=== PATIENT | male | born 1980 | race Caucasian/White ===

== ENCOUNTER 2016-06-25 22:09 | Inpatient (IN) | payer BC ==
[~2016-06-25] VITALS: Ht 177.8 cm; Wt 88.3 kg
[~2016-06-25 22:09] MED LIST: ALBU2.5V9 NEB; CEFE2FRO IV; Furosemide IV; LACTINEX PO; LORA-444 PO; MOR2I IV; ONDA4VIA2 IV; PANTOPRAZOLE; SPIR25TA76 PO; TYL650R PR; VANC750F2 IV; Vancomycin Iv Per Pharmacy XX
[2016-06-25] MEDS ORDERED: FUROSEMIDE 20 MG INJ IV STA (23:46)
--- NOTE | 2016-06-26 00:14 | RADRPT ---
PROCEDURE: CHEST - 1 VIEW CLINICAL INDICATION: 36-year-old male with chest pain. TECHNIQUE: A single frontal AP view of the chest was performed portably. The images were reviewed on a PACS workstation. COMPARISON: Chest x-ray June 15, 2016; CTA chest/abdomen with runoff April 26, 2016. FINDINGS: There has been interval removal of the left-sided PICC line. The cardiomediastinal silhouette is en larged but without significant interval change. There is mild pulmonary vascular congestion. There is elevation right hemidiaphragm. There is a shallow inspiration. There is mild bibasilar subsegm ental atelectasis. There is no evidence for an infiltrate. There is no evidence for pneumothorax. The osseous structures are intact. IMPRESSION: 1. Cardiomegaly. 2. Pulmonary vascular congestion. 3. Shallow inspiration. 4. Mild bibasilar subsegmental atelectasis. .Bora Connors MD, MD Date Time Electronically viewed and signed by .Bora Connors MD, on 06/26/2016 00:14 .M/
[2016-06-26] MEDS ORDERED: LORAZEPAM 2 MG INJ IV ONE (00:30)
[2016-06-26 00:37] LABS: INR 1.61; PROTIME 19.3 Sec (12.2-14.2); PT RATIO 1.5
[2016-06-26 00:38] LABS: PARTIAL THROMBOPLASTIN TIME 32.3 Sec (25.0-35.0)
[2016-06-26 00:40] LABS: BASOPHIL # 0.1 10^3/ul (0.0-0.1); BASOPHILS % 0.8 % (0.0-2.0); EOSINOPHILS % 0.3 % (0.0-7.0); HEMATOCRIT 43.8 % (42.0-52.0); LYMPHOCYTES # 2.9 10^3/ul (0.8-2.9); MEAN CORPUSCULAR HEMOGLOBIN 23.6 pg (29.0-33.0); MEAN CORPUSCULAR HGB CONC 30.9 g/dl (32.0-37.0); MEAN CORPUSCULAR VOLUME 76.5 fl (82.0-101.0); MEAN PLATELET VOLUME 9.5 fl (7.4-10.4); MONOCYTE # 1.4 10^3/ul (0.3-0.9); MONOCYTES % 8.6 % (0.0-11.0); NEUTROPHIL # 11.5 10^3/ul (1.6-7.5); NEUTROPHILS % 72.3 % (39.0-77.0); PLATELET COUNT 255 10^3/UL (140-440); RED BLOOD COUNT 5.73 10^6/ul (4.70-6.10); RED CELL DISTRIBUTION WIDTH 18.4 % (11.5-14.5); UNCORRECTED WBC 15.9 10^3/ul (4.8-10.8); WHITE BLOOD COUNT 15.9 10^3/ul (4.8-10.8)
[2016-06-26 00:42] LABS: CONDITION 1; HEMOGLOBIN 13.6 g/dl (14.0-18.0); LH ANALYZER COMMENTS 1
[2016-06-26 02:07] LABS: POTASSIUM 5.6 mmol/L (3.5-5.1)
[2016-06-26 02:09] LABS: BILIRUBIN,INDIRECT 0.5 mg/dl (0-1.1); BILIRUBIN,TOTAL 0.5 mg/dl (0.2-1.3); CREATININE 1.42 mg/dl (0.61-1.24)
[2016-06-26 02:10] LABS: CALCIUM 8.6 mg/dl (8.4-10.2)
[2016-06-26 02:20] LABS: TROPONIN-I 0.078 ng/ml (0.00-0.12)
--- NOTE | 2016-06-26 04:51 | ERA ---
ER Documentation Chief Complaint Date/Time DATE: 06/26/16 TIME: 04:49 Chief Complaint shortness of breath x 2 months. worse today. also c/o amparo leg swelling HPI This is a 36-year-old male with shortness of breath for 2 months has been progressively worse today. He was diagnosed with aortic valve dysfunction along with mitral valve leaflet rupture. Patient has a history of IV drug use with bacterial endocarditis. Patient had was at [facility] and was told he needs a valve replacement. He comes in for 2 days of worsening shortness of breath. No other current issues. ROS All systems reviewed and are negative except as per history of present illness. Medications Home Meds Active Scripts Lactobacillus Acidophilus* (Lactinex*) 1 Tab Chew, 1 TAB PO BID for 1 Day, TAB Prov:AIYANA GIANG. 06/17/16 Spironolactone* (Aldactone*) 25 Mg Tablet, 25 MG PO DAILY for 1 Day, TAB Prov:AIYANA GIANG. 06/17/16 Cefepime Hcl/Dextrose, Iso-Osm (Cefepime 2 Gm Injection) 2 Gm/100 Ml Froz.piggy , 2 GM IV Q8H for 1 Day Prov:AIYANA GIANGGrabiel 06/17/16 Vancomycin/0.9 % Sod Chloride (Vanco 750 mg/150 ml-0.9% NaCl) 750 Mg/150 Ml Froz.piggy, 750 MG IV Q12 for 1 Day Prov:AIYANA GIANGGrabiel 06/17/16 [Vancomycin Iv Per Pharmacy] 1 EA EACH No Conflict Check, 1 EA XX .Per Rx Protocol for 1 Day Prov:AIYANA GIANGGrabiel 06/17/16 [Pantoprazole Iv] 40 MG SOLN No Conflict Check, 40 MG IV DAILY@06 for 1 Day Prov:LU GIANGMaria Antonia Grabiel 06/17/16 Ondansetron Hcl* (Ondansetron Hcl* Inj) 4 Mg/2 Ml Vial, 4 MG IV Q6H Y for NAUSEA AND/OR VOMITING for 1 Day, VIAL Prov:AIYANA GIANGGrabiel 06/17/16 Morphine Sulfate (Morphine Sulfate) 2 Mg/Ml Soln, 2 MG IV Q4H Y for PAIN LEVEL 7 -10 for 1 Day Prov:LU GIANGMaria Antonia JerrellGrabiel 06/17/16 [Furosemide] 10 MG/ML SOLN No Conflict Check, 40 MG IV BID DIURETICS for 1 Day Prov:AIYANA GIANG. 06/17/16 Albuterol Sulfate (Albuterol Sulfate) 2.5 Mg/0.5 Ml Vial.neb, 2.5 MG NEB Q4H RESP THERAPY for 1 Day Prov:AIYANA GIANG. 06/17/16 Albuterol Sulfate (Albuterol Sulfate) 2.5 Mg/0.5 Ml Vial.neb, 2.5 MG NEB Q2H RESP THERAPY Y for SHORTNESS OF BREATH for 1 Day Prov:AIYANA IGANG. 06/17/16 Acetaminophen* (Acephen*) 650 Mg Supp, 650 MG HI Q4H Y for PAIN LEVEL 1-3 OR FEVER for 1 Day, SUPP Prov:AIYANA GIANG. 06/17/16 Reported Medications Lorazepam* (Ativan*) 2 Mg Tablet, 2 MG PO HS Y for ANXIETY, #30 TAB 06/14/16 Allergies Allergies: Coded Allergies: No Known Allergies (Verified Allergy, Unknown, 06/25/16) PMhx/Soc History of Surgery: No Anesthesia Reaction: No Hx Neurological Disorder: No Hx Respiratory Disorders: No Hx Cardiac Disorders: Yes (ENDOCARDITIS) Hx Psychiatric Problems: No Hx Miscellaneous Medical Probl: Yes (hepatitis c, swelling of abdomen and lower extremities) Hx Alcohol Use: No Hx Substance Use: Yes (heroin 4 days ago) Hx Tobacco Use: Yes (1-2 cigarettes/ day) Smoking Status: Current every day smoker Physical Exam Vitals Vital Signs Date Time Temp Pulse Resp B/P Pulse Ox O2 Delivery O2 Flow Rate FiO2 06/26/16 03:05 102 17 112/59 100 Nasal Cannula 2.0 06/26/16 01:46 103 21 137/61 100 Nasal Cannula 2.0 06/26/16 00:00 Nasal Cannula 2 06/26/16 00:00 Nasal Cannula 2.0 06/25/16 22:24 95.2 105 22 127/62 100 Physical Exam Const: [] Head: Atraumatic Eyes: Normal Conjunctiva ENT: Normal External Ears, Nose and Mouth. Neck: Full range of motion..~ No meningismus. Resp: Clear to auscultation bilaterally Cardio: Regular rate and rhythm, no murmurs Abd: Soft, non tender, non distended. Normal bowel sounds Skin: No petechiae or rashes Back: No midline or flank tenderness Ext: No cyanosis, or edema Neur: Awake and alert Psych: Normal Mood and Affect Result Diagram: 06/25/169 06/25/169 Results 24 hrs Laboratory Tests Test 06/25/16 23:59 Activated Partial Thromboplast Time 32.3Sec Alanine Aminotransferase (ALT/SGPT) 333IU/L Albumin 3.0g/dl Albumin/Globulin Ratio 1.00 Alkaline Phosphatase 92IU/L Anion Gap 20 Aspartate Amino Transf (AST/SGOT) 169IU/L B-Type Natriuretic Peptide 43165UA/ML Basophils # 0.110^3/ul Basophils % 0.8% Blood Morphology Comment Blood Urea Nitrogen 66mg/dl Calcium Level 8.6mg/dl Carbon Dioxide Level 25mmol/L Chloride Level 96mmol/L Creatinine 1.42mg/dl Direct Bilirubin 0.00mg/dl Eosinophils # 0.010^3/ul Eosinophils % 0.3% Globulin 3.00g/dl Glucose Level 116mg/dl Hematocrit 43.8% Hemoglobin 13.6g/dl INR International Normalized Ratio 1.61 Indirect Bilirubin 0.5mg/dl Lipase 28U/L Lymphocytes # 2.910^3/ul Lymphocytes % 18.0% Mean Corpuscular Hemoglobin 23.6pg Mean Corpuscular Hemoglobin Concent 30.9g/dl Mean Corpuscular Volume 76.5fl Mean Platelet Volume 9.5fl Monocytes # 1.410^3/ul Monocytes % 8.6% Neutrophils # 11.510^3/ul Neutrophils % 72.3% Nucleated Red Blood Cells # 0.010^3/ul Nucleated Red Blood Cells % 0.0/100WBC Platelet Count 21183^3/UL Potassium Level 5.6mmol/L Prothrombin Time 19.3Sec Prothrombin Time Ratio 1.5 Red Blood Count 5.7310^6/ul Red Cell Distribution Width 18.4% Sodium Level 135mmol/L Total Bilirubin 0.5mg/dl Total Protein 6.0g/dl Troponin I 0.078ng/ml White Blood Count 15.910^3/ul Current Medications Medications (Trade) Dose Ordered Sig/Bon Route PRN Reason Start Time Stop Time Status Last Admin Dose Admin Furosemide (Lasix) 60 mg ONCE STAT IV 06/25/16 23:46 06/25/16 23:48 DC 06/26/16 00:13 Lorazepam (Ativan) 1 mg ONCE ONCE IV 06/26/16 00:30 06/26/16 00:31 DC 06/26/16 00:28 Procedures/MDM EKG: Rate/Rhythm: Normal Sinus Rhythm QRS, ST, T-waves: No changes consistent w/ acute ischemia Impression: No evidence of ischemia or arrhythmia Chest X-ray 1V Interpreted by me: Soft Tissue: No acute abnormalities Bones: No acute abnormalities Mediastinum/Cardiac Silhouette/Lungs: Pulmonary edema. Increased interstitial fluid markings Patient's heart failure symptoms is concerning for acute decompensation and will require inpatient workup and monitoring. Further w/u for ischemia, arrhythmia, PE or dissection will be deferred to the inpatient team. I did speak with Dr. Camara, we come to the understanding the patient will likely benefit from referral and transfer to a tertiary care center. At this time we are trying to place the patient in either [facility] where he was before, [facility] or [facility]. Critical Care: Time: 45 minutes Treatments/Evaluations: Close monitoring and treatment of unstable vital signs, cardiorespiratory, and neurologic status, while maintaining tight balance of fluid, respiratory, and cardiac interventions. Departure Diagnosis: Primary Impression: Aortic regurgitation Qualified Code: I35.1 - Nonrheumatic aortic valve insufficiency Additional Impressions: Mitral valve regurgitation, infectious Congestive heart failure Qualified Code: I50.9 - Congestive heart failure, unspecified congestive heart failure chronicity, unspecified congestive heart failure type Condition: Critical BRADLEY FONTAINE Jun 26, 2016 04:51
[2016-06-26] MEDS ORDERED: ACETAMINOPHEN 325 MG TAB PO ONE ×2 (06:30)
[2016-06-26] MEDS ORDERED: EPINEPHrine 0.1 MG/ML SYG ONE (07:00)
[2016-06-26] MEDS ORDERED: NA BICARBONATE 8.4% 50 ML SYG ONE (07:00)
[2016-06-26] MEDS ORDERED: APIX5TAB PO (09:58)
[2016-06-26] MEDS ORDERED: NA POLYST SULFON 15 GM/60 ML BTL PO ONE (11:30)
[2016-06-26] MEDS ORDERED: ACETAMINOPHEN 325 MG TAB PO PRN (12:00)
[2016-06-26] MEDS ORDERED: ONDANSETRON 4 MG INJ IV PRN ×2 (12:00)
[2016-06-26] MEDS ORDERED: NITROGLYCERIN (SL) 0.4 MG TAB SL PRN (12:00)
--- NOTE | 2016-06-26 14:54 | HP ---
Date/Time of Note Date/Time of Note DATE: 06/26/16 TIME: 14:39 Assessment/Plan VTE Prophylaxis VTE Prophylaxis Intervention: other (eliquis) Lines/Catheters IV Catheter Type (from [facility]): Peripheral IV Assessment/Plan Assessment/Plan 36 yo unfortunate male with a past medical history of Bacterial Endocarditis finished 6 week course of IV antibiotics, Drug abuse, Nicotine abuse, Right popliteal thrombosis, PE on Eliquis, Microcytic anemia, CHF - diastolic, who came for worsening shortness of breath. 1. Shortness of breath - hypoxemic respiratory failure - multifactorial - heart failure acute on chronic - admit the patient to ICU, consult pulm, CT surgery, cardiology 2. Sepsis severe 2/2 to pneumonia - tachycardia/leukocytosis - HCAP - IV cefepime, levaquin, vanc - respiratory cultures, monitor trend 3. CHF - diastolic dysfunction - EF recent shows 40%, D shaped left ventricle, consult cardiology, gentle diuresis 4. Hyponatremia - 2/2 fluid overload - consult nephrology 5. BESSIE - acute on chronic - 2/2 #2 6. Transaminitis - 2/2 to sepsis, or possible atypical pneumonia, monitor trend - 7. PE on eliquis - continue 8. Right popliteal thrombus - continue with eliquis 9. Microcytic anemia - monitor H/H, transfuse if hgb < 8 g/dL 10. GI ppx - protonix 11. DVT ppx - eliquis answered all of the questions. as per clinical course. this critical care note took greater than 1 hour to complete HPI/ROS Admit Date/Time Admit Date/Time 06/26/2016, 2:40 pm Hx of Present Illness 36 yo unfortunate male with a past medical history of Bacterial Endocarditis finished 6 week course of IV antibiotics, Drug abuse, Nicotine abuse, Right popliteal thrombosis, PE on Eliquis, Microcytic anemia, CHF - diastolic, who came for worsening shortness of breath. Patient was recently admitted on 2015 for similar presentation. Since that time, the patient went to the tertiary care center for further evaluation and treatment, and was told that he has an inoperable valve. Secondary to that, he left and went home. He has been having worsening shortness of breath, unable to speak in full sentences, walks about 1-2 feet, increasing lower extremity edema with scrotal edema as well. He denies any chest pain, loss of consciousness, headaches, urinary/bowel irregularities. No other constitutional symptoms. ED course: lasix, ativan and acetaminophen all given ROS 14 point review of systems completed, please refer to HPI for any positive findings PMH/Family/Social Past Medical History Endocarditis - bacterial, Pulmonary Embolism, Right popliteal artery thrombus, microcytic anemia Medical History: congestive heart failure Past Surgical History Past Surgical Hx: no surgical history Family History Significant Family History: no pertinent family hx Social History Alcohol Use: none Smoking Status: Current every day smoker Drug Use: heroin Exam/Review of Systems Vital Signs Vitals Vital Signs Date Time Temp Pulse Resp B/P Pulse Ox O2 Delivery O2 Flow Rate FiO2 06/26/16 13:30 84 19 132/77 100 Nasal Cannula 2.0 06/26/16 11:30 97.4 Exam Exam Gen Evelyn: moderate respiratory distress, AAOx4 HEENT: NC/AT, PERRLA, EOMI, no pharyngeal erythema, no tonsillar exudates, no lymphadenopathy, no JVD, no carotid bruits NECK: supple, no thyromegaly THORAX: symmetrical, no obvious deformities CV: S1S2, RRR, III/ systolic murmur best heard over mitral area Lungs: Coarse breath sounds, scattered wheezing, bibasilar crackles Abd: soft, NT/ND, +BS, no rebound, no guarding, neg HSM : scrotal edema EXT: 2+ bilateral lower extremities edema, no ecchymosis, no clubbing, FROM, mild cyanosis noted at phalanges bilaterally lower extremities Neuro: CN II-XII grossly intact, no focal deficits Psych: fair mood and affect Skin: see ext Labs Result Diagram: 06/25/16 23506/25/162358 Medications Medications Current Medications Sodium Chloride (NS) 1,000 ml @ 40 mls/hr Q24H IV ; Start 06/26/16 at 16:00 Ondansetron HCl (Zofran Inj) 4 mg Q6H PRN IV NAUSEA AND/OR VOMITING; Start at 12:00 Nitroglycerin (Nitroglycerin (Sl Tab) 0.4 Mg) 1 tab Q5M PRN SL CHEST PAIN; Start 06/26/16 at 12:00 Acetaminophen (Tylenol Supp) 650 mg Q4H PRN TX PAIN LEVEL 1-3 OR FEVER; Start 06/26/16 at 12:00 Morphine Sulfate (morphine) 2 mg Q4H PRN IV PAIN LEVEL 7-10; Start 06/26/16 at 12:00 Lorazepam (Ativan) 1 mg Q2H PRN IV ANXIETY; Start 06/26/16 at 12:00 Pantoprazole (Protonix Iv) 40 mg DAILY@06 IV ; Start 06/27/16 at 06:00 Enoxaparin Sodium (Lovenox) 40 mg DAILY SC ; Start 06/27/16 at 09:00 Procedures Procedures CXR IMPRESSION: 1. Cardiomegaly. 2. Pulmonary vascular congestion. 3. Shallow inspiration. 4. Mild bibasilar subsegmental atelectasis. JC BROUSSARD MD Jun 26, 2016 14:49
[2016-06-26] MEDS ORDERED: VANCOMYCIN IV PER PHARMACY XX SCH (15:00)
[2016-06-26] MEDS: LEVOFLOXACIN 500MG/D5W (PMX) 100 ML IVPB SCH (15:16)
[2016-06-26] MEDS ORDERED: VANCOMYCIN 2 GM in SOD CHLORIDE 0.9% 500 ML IVPB SCH (16:15)
[2016-06-26] MEDS ORDERED: VANCOMYCIN 1.75 GM in SOD CHLORIDE 0.9% 500 ML IVPB SCH (16:15)
[2016-06-26] MEDS: CEFEPIME 1GM/50 ML (PMX) 50 ML IVPB SCH ×2 (16:26→21:00)
[2016-06-26] MEDS: LORAZEPAM 2 MG INJ IV PRN ×2 (16:36→22:09)
[2016-06-26 17:00] VITALS: TEMP 97.8
--- NOTE | 2016-06-26 17:01 | CONS ---
DATE OF ADMISSION: 06/25/2016 DATE OF CONSULTATION: 06/26/2016 REASON FOR CONSULTATION: Congestive heart failure exacerbation as well as mitral regurgitation and aortic regurgitation. REQUESTING PHYSICIAN: Dr. Broussard from the hospitalist service. HISTORY OF PRESENT ILLNESS: Mr. Ferrell is a 36-year-old male with a history of bacterial endocardit is status post a 6-week course with vegetation affecting both aortic and mitral valves with the douglas sesophageal echo 04/15/2016 revealing perforation of mitral valve leaflets. At that time, and assoc iated mild to moderate mitral regurgitation and moderate aortic regurgitation with preserved left ve ntricular ejection fraction. Additionally, at that time, the patient had a pulmonary embolism, was placed on Eliquis. The patient had re-presented 06/14/2016 with recurrent shortness of breath and c ongestive heart failure, lower extremity edema. At that time, the patient underwent a repeat 2D ech o now revealing a mildly depressed EF of 40% with moderate to severe aortic regurgitation, and moder ate to severe mitral regurgitation. Patient was transferred to [facility] for higher level of care and pe r family, he did present there, was told that he would have to undergo rehab prior to having any po ssible surgery done and was also told surgery could be done at [facility] and ther ulyssesfter the patient sounds like he may have left against medical advice. The patient now re-present s with recurrent shortness of breath, lower extremity edema, orthopnea. Upon arrival, temperature o f 95.2, blood pressure 127/62, pulse 105, respiratory rate 22, satting 100%. Patient's labs showed white count 15.9, hemoglobin 13.6, platelet count 255. Sodium 135, potassium 5.6, creatinine of 1.42, BUN of 66. AST 169, ALT 333. BNP of 19,500. INR of 1.61. The patient un derwent a chest x-ray revealing pulmonary vascular congestion, shallow inspiration and mild bibasila r subsegmental atelectasis. The patient's electrocardiogram revealed sinus tachycardia, rate 107, r ight superior axis deviation, low voltage throughout and poor R-wave progression across the anterior leads concerning for prior anterior AR, and nonspecific ST-T abnormalities. The patient sub sequently has been treated with Kayexalate for elevated potassium, dose of Lasix 60 IV x1 and now aw aits admit to the floor for further evaluation and treatment. PAST MEDICAL HISTORY: As above in HPI. MEDICATIONS CURRENTLY IN HOSPITAL: 1. Protonix 40 mg IV daily. 2. Vancomycin. 3. Heparin 5000 subq b.i.d. 4. Lasix 40 mg IV b.i.d. 5. Cefepime 50 IV q.12h. 6. Levofloxacin. 7. Zofran p.r.n. 8. Sublingual nitroglycerin p.r.n. 9. Morphine p.r.n. 10. Ambien p.r.n. ALLERGIES: NO KNOWN DRUG ALLERGIES. SOCIAL HISTORY: Positive history of tobacco. FAMILY HISTORY: History of drug abuse with heroin IV. REVIEW OF SYSTEMS: As above in HPI. CONSTITUTIONAL: No fevers, chills. PULMONARY: Shortness of breath. CARDIOVASCULAR: Congestive heart failure, aortic regurgitation, mitral regurgitation. GASTROINTESTINAL: No vomiting. GENITOURINARY: No hematuria. MUSCULOSKELETAL: Degenerative joint disease. PSYCHIATRIC: No documented psych history. NEUROLOGIC: No documented history of CVA. ENDOCRINE: No documented history of diabetes mellitus. PHYSICAL EXAMINATION: VITAL SIGNS: Temperature of 97.4, blood pressure 132/77, pulse 84, respiratory rate 19, saturating 100% on 2 liters. GENERAL: The patient is alert, awake, complaining of shortness of breath. NECK: JVP approximately 9-10 cm water. CHEST: Bibasilar crackles. HEART: Regular rate and rhythm. Normal S1, S2, II/ systolic murmur. ABDOMEN: Positive bowel sounds, soft. EXTREMITIES: 2 to 3+ edema bilaterally, 1+ pulses bilaterally, posterior tibial. LABORATORY DATA: As above in HPI. No further labs for my review at this time. IMAGING STUDIES: As above in HPI. No further imaging studies for my review at this time. ECG: As above in HPI. No further electrocardiograms for my review at this time. IMPRESSION: 1. Congestive heart failure exacerbation, systolic, acute on chronic with last known EF approximate ly 40% by echo May 2016. 2. Aortic regurgitation, moderate to severe with possible ongoing vegetation by most recent echo 2015. 3. Mitral regurgitation, moderate to severe. 4. History of recent endocarditis status post 6-week course of antibiotics. 5. Cardiomyopathy with decreased left ventricular ejection fraction last approximately 40% by echo 06/14/2016. 6. Coagulopathy. 7. Renal failure. 8. Hyperkalemia. 9. Increased LFTs. 10. Increased BNP. 11. Leukocytosis. 12. Mild anemia. RECOMMENDATIONS: 1. At this time, would admit patient to telemetry monitoring to follow rhythm and rate control clos vinh. 2. Would continue the patient's Lasix diuresis, would possible increase, have very aggressive diure sis. 3. Would place the patient on low dose beta annette and to improve time for a systolic ejection and diastolic phases of the patient's cardiac cycle. Continue the patient's antibiotics and follow up all culture data. 4. We will complete a rule out for myocardial infarction to ensure the patient is not in any furthe r extension of infection seen to the myocardium with a myocardial necrosis. Would check cultures to assure the patient does not have any culture positive for any infection ongoing. 5. Cardiothoracic surgical consultation for possible aortic and mitral valve replacement repair. Thank you for allowing me to take part in the care of this patient. I will continue to follow along very closely with you with further recommendations to be made as the patient progresses through his inpatient hospital clinical course. Dictated By: SEVERO MYERS/BRANDO Conf#: [id number] DID#: [id number] CC: JC BROUSSARD MD;*EndCC*
[2016-06-26 17:37] VITALS: Ht 177.8 cm; Wt 88.3 kg
[2016-06-26 17:55] VITALS: BP 119/63; RESP 17
[2016-06-26] MEDS: FUROSEMIDE 40 MG INJ IV SCH (18:31)
[2016-06-26] MEDS: SOD CHLORIDE 0.9% 1,000 ML IV SCH (18:32)
[2016-06-26 19:20] LABS: CK-MB 2.76 ng/ml (0.0-2.4)
[2016-06-26 19:22] LABS: TROPONIN-I 0.076 ng/ml (0.00-0.12)
[2016-06-26 20:18] VITALS: PULSE 110
[2016-06-26] MEDS: METOPROLOL 25 MG TAB PO SCH (22:04)
[2016-06-26] MEDS: HEPARIN 5,000 UNIT/0.5 ML SYG SC SCH (22:05)
[2016-06-26 23:49] VITALS: BP 126/59; RESP 17
[2016-06-27] VITALS (54 sets, daily range): BP systolic 92–131; BP diastolic 14–71; PULSE 37–121; RESP 12–39
--- NOTE | 2016-06-27 00:30 | QN ---
Documentation Comment Responded to Code blue called on patient for respiratory arrest and eventual loss of pulse. Patient intubated at bedside by ER physician and resuscitated according to ACLS protocol with ROSC. Patient transferred to ICU in guarded condition for further mgt. Mother updated throughout. CC time >35 mins AIYANA GIANG Jun 27, 2016 00:30
[2016-06-27 01:08] LABS: AADO2 Arterial 301.1 mmHg (7.0-24.0); Allen Test ACCEPTAB; Arterial Base Excess -12.4 mmol/L (-3.0-3); Arterial COHb 0.6 % (0.0-3.0); Arterial Fraction of Oxyhgb 98.9 % (93.0-99.0); Arterial HCO3 14.4 mmol/L (22.0-26.0); Arterial MetHb 0.4 % (0.0-1.5); Arterial Total Hemglobin 13.7 g/dl (12.0-18.0); MODE VENT - AC
[2016-06-27] MEDS ORDERED: NA BICARBONATE 8.4% 50 ML SYG IV STA (01:59)
[2016-06-27 02:17] LABS: BASOPHIL # 0.1 10^3/ul (0.0-0.1); BASOPHILS % 0.3 % (0.0-2.0); EOSINOPHILS % 0.1 % (0.0-7.0); HEMATOCRIT 42.7 % (42.0-52.0); HEMOGLOBIN 13.1 g/dl (14.0-18.0); LYMPHOCYTES # 2.3 10^3/ul (0.8-2.9); LYMPHOCYTES % 10.7 % (15.0-51.0); MEAN CORPUSCULAR HEMOGLOBIN 23.6 pg (29.0-33.0); MEAN CORPUSCULAR HGB CONC 30.8 g/dl (32.0-37.0); MEAN CORPUSCULAR VOLUME 76.6 fl (82.0-101.0); MONOCYTE # 1.5 10^3/ul (0.3-0.9); MONOCYTES % 6.8 % (0.0-11.0); NEUTROPHIL # 17.8 10^3/ul (1.6-7.5); NEUTROPHILS % 82.1 % (39.0-77.0); RED BLOOD COUNT 5.58 10^6/ul (4.70-6.10); RED CELL DISTRIBUTION WIDTH 18.6 % (11.5-14.5); UNCORRECTED WBC 21.7 10^3/ul (4.8-10.8); WHITE BLOOD COUNT 21.7 10^3/ul (4.8-10.8)
[2016-06-27 02:18] LABS: CONDITION 1; LH ANALYZER COMMENTS 1; SUSPECT 1
[2016-06-27 02:21] LABS: POTASSIUM 5.9 mmol/L (3.5-5.1)
[2016-06-27 02:22] LABS: PLATELET COUNT 179 10^3/UL (140-440)
[2016-06-27 02:23] LABS: BILIRUBIN,INDIRECT 0.6 mg/dl (0-1.1); BILIRUBIN,TOTAL 0.6 mg/dl (0.2-1.3); CREATININE 1.57 mg/dl (0.61-1.24)
[2016-06-27 02:24] LABS: CALCIUM 8.5 mg/dl (8.4-10.2); MAGNESIUM 2.3 mg/dl (1.7-2.5); PHOSPHORUS 7.3 mg/dl (2.5-4.9)
[2016-06-27 02:35] LABS: CK-MB 3.27 ng/ml (0.0-2.4)
[2016-06-27 02:43] LABS: TROPONIN-I 0.218 ng/ml (0.00-0.12)
[2016-06-27] MEDS: LORAZEPAM 2 MG INJ IV PRN ×2 (02:50→08:04)
[2016-06-27] MEDS ORDERED: PROPOFOL 100 ML ONE (03:16)
--- NOTE | 2016-06-27 03:16 | RADRPT ---
PROCEDURE: XR Chest. CLINICAL INDICATION: Respiratory failure TECHNIQUE: Portable single view of the chest COMPARISON: 06/25 FINDINGS: There has been placement of an endotracheal tube with tip at the level of the clavicles. Now eviden t is a moderately large right pleural effusion. Enlarged cardiopericardial silhouette is again seen as well as pulmonary vascular congestion. External pacer overlies the left chest. No large left e ffusion is seen. IMPRESSION: Endotracheal tube in good position. Moderate right pleural effusion which is likely increased altho ugh it may have been subpulmonic on the prior study. Enlarged cardiopericardial silhouette. Perica rdial effusion should be considered. RPTAT: [facility] Physician Celeste Date Time Electronically viewed and signed by Mary Jo Moulton Physician on 06/27/2016 03:15 LE/
[2016-06-27] MEDS: PROPOFOL 100 ML IV SCH ×3 (03:25→17:26)
[2016-06-27] MEDS ORDERED: VANCOMYCIN 750 MG in SOD CHLORIDE 0.9% 150 ML IVPB SCH (05:00)
[2016-06-27] MEDS ORDERED: LIDOCAINE 1% (MDV) 20 ML INJ SC ONE (05:30)
[2016-06-27] MEDS: FUROSEMIDE 40 MG INJ IV SCH (06:02)
[2016-06-27] MEDS: PANTOPRAZOLE 40 MG INJ IV SCH (06:02)
[2016-06-27] MEDS: VANCOMYCIN 750 MG in SOD CHLORIDE 0.9% 150 ML IVPB SCH ×2 (07:00→18:34)
--- NOTE | 2016-06-27 08:06 | PN ---
Date/Time of Note Date/Time of Note DATE: 06/27/16 TIME: 08:05 Assessment/Plan VTE Prophylaxis VTE Prophylaxis Intervention: heparin Lines/Catheters IV Catheter Type (from [facility]): Peripheral IV Urinary Cath still in place: No Assessment/Plan Assessment/Plan 36 yo unfortunate male with a past medical history of Bacterial Endocarditis finished 6 week course of IV antibiotics, Drug abuse, Nicotine abuse, Right popliteal thrombosis, PE on Eliquis, Microcytic anemia, CHF - diastolic, who came for worsening shortness of breath. 1. Shortness of breath - hypoxemic respiratory failure - multifactorial - heart failure acute on chronic - Vent dependent - intubated - f/u pulm recs 2. Sepsis severe 2/2 to pneumonia - tachycardia/leukocytosis - HCAP - IV cefepime, levaquin, vanc - respiratory cultures, monitor trend - worsening, consult ID 3. CHF - diastolic dysfunction - EF recent shows 40%, D shaped left ventricle, consult cardiology, gentle diuresis 4. Hyponatremia - 2/2 fluid overload - consult nephrology 5. BESSIE - acute on chronic - 2/2 #2 - worsening 6. Transaminitis - 2/2 to sepsis, or possible atypical pneumonia, monitor trend - 7. PE on eliquis - continue 8. Right popliteal thrombus - continue with eliquis 9. Microcytic anemia - monitor H/H, transfuse if hgb < 8 g/dL 10. GI ppx - protonix 11. DVT ppx - eliquis dispo - f/u recs, palliative care consult - will monitor functional status this critical care note took greater than 50 min to complete Subjective 24 Hr Interval Summary Free Text/Dictation Patient had a code blue last night. He was resuscitated as per ACLS protocol via epinephrine and CPR. Subsequently required emergent intubation. He had an elevated potassium, but was given Kayexalate. Had a large bowel movement. Otherwise spoke to the nurse about the care plan. 20 minutes spent. Exam/Review of Systems Vital Signs Vitals Vital Signs Date Time Temp Pulse Resp B/P Pulse Ox O2 Delivery O2 Flow Rate FiO2 06/27/16 07:30 108 23 106/50 99 Mechanical Ventilator 06/27/16 05:34 50 06/27/16 04:00 97.9 06/26/16 18:48 5.0 Intake and Output 06/26/16 06/26/1606/27/16 15:00 23:00 07:00 Intake Total 37.735 ml Balance 37.735 ml Exam Gen Evelyn: moderate respiratory distress, intubated - agitated HEENT: NC/AT, ETT in place NECK: supple, no thyromegaly THORAX: symmetrical, no obvious deformities CV: S1S2, RRR, III/ systolic murmur best heard over mitral area Lungs: Coarse breath sounds, scattered wheezing, bibasilar crackles Abd: soft, NT/ND, +BS, no rebound, no guarding, neg HSM : scrotal edema EXT: 2+ bilateral lower extremities edema, no ecchymosis, no clubbing, FROM, mild cyanosis noted at phalanges bilaterally lower extremities Neuro: cannot assess - intubated/sedated Psych: agitated Skin: see ext Results Result Diagram: 06/27/16 0200 06/27/16 0200 Results 24 hrs Laboratory Tests Test 06/26/16 18:25 06/27/16 00:10 06/27/16 00:45 06/27/16 02:00 Creatine Kinase 117 181 Creatine Kinase Index 2.4 1.8 Creatinine Kinase MB (Mass) 2.76 H 3.27 H Lactic Acid Level 3.7 H Thyroid Stimulating Hormone (TSH) 3.200 Troponin I 0.076 0.218 *H Bedside Glucose 91 Arterial Blood HCO3 14.4 L Arterial Blood Base Excess -12.4 L Arterial Blood Oxygen Saturation 99.9 H Jaspal Test ACCEPTAB Arterial Blood Gas Puncture Site Right Radial Arterial Blood Carboxyhemoglobin 0.6 Arterial Blood Date Drawn 06/27/2016 1:00:50 AM Arterial Blood Methemoglobin 0.4 Arterial Blood pCO2 (Temp correct) 36.4 Arterial Blood pH (Temp corrected) 7.216 *L Arterial Blood pO2 (Temp corrected) 375.5 H Blood Gas A-a O2 Differential 301.1 H Blood Gas Actual Respiration Rate 20 Blood Gas Critical Value Read Back SHAMAR MCKEON Blood Gas Low PEEP Setting 5.0 Blood Gas Modality VENT - AC Blood Gas Notified Time 06/27/2016 1:07:33 AM Blood Gas Notified Whom MG Blood Gas Respiration Rate 16.0 Blood Gas Specimen Source Blood arterial Blood Gas Temperature 37.0 Blood Gas Tidal Volume 550.0 FiO2 100.0 Oxyhemoglobin Percent 98.9 Total Hemoglobin 13.7 Alanine Aminotransferase (ALT/SGPT) 279 H Albumin 3.0 L Albumin/Globulin Ratio 1.00 Alkaline Phosphatase 83 Anion Gap 25 H Aspartate Amino Transf (AST/SGOT) 138 H Basophils # 0.1 Basophils % 0.3 Blood Morphology Comment Blood Urea Nitrogen 65 H Calcium Level 8.5 Carbon Dioxide Level 17 L Chloride Level 98 Creatinine 1.57 H Direct Bilirubin 0.00 Eosinophils # 0.0 Eosinophils % 0.1 Globulin 3.00 Glucose Level 107 Hematocrit 42.7 Hemoglobin 13.1 L Indirect Bilirubin 0.6 Lymphocytes # 2.3 Lymphocytes % 10.7 L Magnesium Level 2.3 Mean Corpuscular Hemoglobin 23.6 L Mean Corpuscular Hemoglobin Concent 30.8 L Mean Corpuscular Volume 76.6 L Mean Platelet Volume 9.0 Monocytes # 1.5 H Monocytes % 6.8 Neutrophils # 17.8 H Neutrophils % 82.1 H Nucleated Red Blood Cells # 0.0 Nucleated Red Blood Cells % 0.0 Phosphorus Level 7.3 H Platelet Count 179 # Potassium Level 5.9 H Red Blood Count 5.58 Red Cell Distribution Width 18.6 H Sodium Level 134 L Total Bilirubin 0.6 Total Protein 6.0 L White Blood Count 21.7 #H Medications Medications Current Medications Sodium Chloride (NS) 1,000 ml @ 40 mls/hr Q24H IV Last administered on at 18:32; Admin Dose 40 MLS/HR; Start 06/26/16 at 16:00 Ondansetron HCl (Zofran Inj) 4 mg Q6H PRN IV NAUSEA AND/OR VOMITING; Start at 12:00 Nitroglycerin (Nitroglycerin (Sl Tab) 0.4 Mg) 1 tab Q5M PRN SL CHEST PAIN; Start 06/26/16 at 12:00 Acetaminophen (Tylenol Supp) 650 mg Q4H PRN [place] PAIN LEVEL 1-3 OR FEVER; Start 06/26/16 at 12:00 Morphine Sulfate (morphine) 2 mg Q4H PRN IV PAIN LEVEL 7-10; Start 06/26/16 at 12:00 Lorazepam (Ativan) 1 mg Q2H PRN IV ANXIETY Last administered on 06/27/16at 08: 04; Admin Dose 1 MG; Start 06/26/16 at 12:00 Pantoprazole (Protonix Iv) 40 mg DAILY@06 IV Last administered on 06/27/16 06 :02; Admin Dose 40 MG; Start 06/27/16 at 06:00 Heparin Sodium (Porcine) 5000 unit 5,000 unit BID SC Last administered on 06/26at 22:05; Admin Dose 5,000 UNIT; Start 06/26/16 at 21:00 Cefepime HCl 50 ml @ 100 mls/hr Q12 IVPB Last administered on 06/26/16at 16:26 ; Admin Dose 100 MLS/HR; Start 06/26/16 at 15:00 Levofloxacin/ Dextrose (Levaquin 500mg/ D5W 100 ml (Pmx)) 100 ml @ 100 mls/hr Q24H IVPB Last administered on 06/26/16at 15:16; Admin Dose 100 MLS/HR; Start 06/26/16 at 15:00 Metoprolol Tartrate 12.5 mg 12.5 mg BID PO Last administered on 06/26/16 22: 04; Admin Dose 12.5 MG; Start 06/26/16 at 21:00 Vancomycin HCl 750 mg/Sodium Chloride 150 ml @ 75 mls/hr Q12H IVPB Last administered on 06/27/16 07:00; Admin Dose 75 MLS/HR; Start 06/27/16 at 06:00 Propofol (Diprivan) 100 ml @ 2.649 mls/ hr Q12H IV Last administered on 03:25; Admin Dose 2.649 MLS/HR; Start 06/27/16 at 03:30 Procedures Procedures CXR IMPRESSION: Endotracheal tube in good position. Moderate right pleural effusion which is likely increased although it may have been subpulmonic on the prior study. Enlarged cardiopericardial silhouette. Pericardial effusion should be considered. JC BROUSSARD MD Jun 27, 2016 08:06
[2016-06-27 08:25] LABS: AADO2 Arterial 203.2 mmHg (7.0-24.0); Allen Test ACCEPTAB; Arterial Base Excess -3.8 mmol/L (-3.0-3); Arterial COHb 0.8 % (0.0-3.0); Arterial Fraction of Oxyhgb 97.1 % (93.0-99.0); Arterial HCO3 19.2 mmol/L (22.0-26.0); Arterial MetHb 0.4 % (0.0-1.5); MODE VENT - AC
[2016-06-27] MEDS: METOPROLOL 25 MG TAB PO SCH ×2 (08:50→21:00)
--- NOTE | 2016-06-27 08:59 | RADRPT ---
PROCEDURE: Chest 1 views. CLINICAL INDICATION: Shortness of breath, congestive heart failure, hyperkalemia. TECHNIQUE: AP views of the chest were obtained. COMPARISON: June 27, 2016 FINDINGS: The heart is large. Endotracheal tube is stable and appears in grossly appropriate location. Nasoga stric tube has its distal end in the expected location of the stomach. Mild interstitial prominence in both lungs appears stable. Small to moderate right pleural effusion with associated lower lung a telectasis is unchanged. Osseous structures are intact. IMPRESSION: Cardiomegaly . Nasogastric tube with its distal end in the expected location of the stomach. Stable mild interstitial prominence in both lungs. Stable small to moderate right pleural effusion with associated lower lung atelectasis. RPTAT: AA .Mu Membreno MD, Date Time Electronically viewed and signed by .Mu Membreno MD, on 06/27/2016 08:59 .P/
[2016-06-27] MEDS ORDERED: ENOXAPARIN 40 MG/0.4 ML SYG SC SCH (09:00)
[2016-06-27 09:28] LABS: CHOL/HDL RATIO 6.6 RATIO
[2016-06-27] MEDS: CEFEPIME 1GM/50 ML (PMX) 50 ML IVPB SCH ×2 (09:34→22:10)
[2016-06-27] MEDS: HEPARIN 5,000 UNIT/0.5 ML SYG SC SCH ×2 (09:40→22:10)
[2016-06-27] MEDS ORDERED: NA POLYST SULFON 15 GM/60 ML BTL NGT ONE (11:30)
--- NOTE | 2016-06-27 12:28 | CONS ---
Date/Time of Note Date/Time of Note DATE: 06/27/16 TIME: 12:20 Assessment/Plan Assessment/Plan Chief Complaint/Hosp Course IMPRESSION: 1. Congestive heart failure exacerbation, systolic, acute on chronic with last known EF approximately 40% by echo May 2016. 2. Aortic regurgitation, moderate to severe with possible ongoing vegetation by most recent echo May 2016. 3. Mitral regurgitation, moderate to severe. 4. History of recent endocarditis status post 6-week course of antibiotics. 5. Cardiomyopathy with decreased left ventricular ejection fraction last approximately 40% by echo 06/14/2016. 6. Coagulopathy. 7. Renal failure. 8. Hyperkalemia-ongoing 9. Increased LFTs. 10. Increased BNP. 11. Leukocytosis. 12. Mild anemia. 13.Resp failure s/p intubation 14. s/p Code blue Recc: -Tele -Lasix diuresis -Low dose BB as tolerated only -pnding CT surgical consult for possible AVR./MVR -F/U blood cultures -Continue abx's Problems: Consultation Date/Type/Reason Admit Date/Time Jun 26, 2016 at 11:39 Initial Consult Date 06/27/2016 Type of Consultation: Cardiology Reason for Consultation AR/MR Referring Provider: JC BROUSSARD MD Exam/Review of Systems Vital Signs Vitals Vital Signs Date Time Temp Pulse Resp B/P Pulse Ox O2 Delivery O2 Flow Rate FiO2 06/27/16 12:00 93 06/27/16 11:30 19 93/41 100 06/27/16 11:04 50 06/27/16 11:00 Mechanical Ventilator 06/27/16 08:00 98.5 06/26/16 18:48 5.0 Intake and Output 06/26/16 06/26/16 06/27/16 15:00 23:00 07:00 Intake Total 37.735 ml Output Total 40 ml Balance -2.265 ml Exam Review of Systems: CONSTITUTIONAL: No fevers, chills. PULMONARY: intubated CARDIOVASCULAR: No obvious chest pain/palpitations GASTROINTESTINAL: No nausea/vomiting. GENITOURINARY: No hematuria/dysuria. MUSCULOSKELETAL: No myagias/arthalgias. PSYCHIATRIC: The patient denies depression. NEUROLOGIC: No weakness Constitutional: alert Head: normocephalic ENMT: mucosa pink and moist Neck: jvd (9 cm water), supple Respiratory: diminished breath sounds (at bases/B) Cardiovascular: regular rate and rhythm Gastrointestinal: non-tender, soft Musculoskeletal: muscle tone (normal) Extremities: edema (none) Neurological: other (No focal deficits) Results Result Diagram: 06/27/16 0200 06/27/16 1000 Results 24 hrs Laboratory Tests Test 06/26/16 18:25 06/27/16 00:10 06/27/16 00:45 06/27/16 02:00 Creatine Kinase 117 181 Creatine Kinase Index 2.4 1.8 Creatinine Kinase MB (Mass) 2.76 H 3.27 H Lactic Acid Level 3.7 H Thyroid Stimulating Hormone (TSH) 3.200 Troponin I 0.076 0.218 *H Bedside Glucose 91 Arterial Blood HCO3 14.4 L Arterial Blood Base Excess -12.4 L Arterial Blood Oxygen Saturation 99.9 H Jaspal Test ACCEPTAB Arterial Blood Gas Puncture Site Right Radial Arterial Blood Carboxyhemoglobin 0.6 Arterial Blood Date Drawn 06/27/2016 1:00:50 AM Arterial Blood Methemoglobin 0.4 Arterial Blood pCO2 (Temp correct) 36.4 Arterial Blood pH (Temp corrected) 7.216 *L Arterial Blood pO2 (Temp corrected) 375.5 H Blood Gas A-a O2 Differential 301.1 H Blood Gas Actual Respiration Rate 20 Blood Gas Critical Value Read Back SHAMAR MCKEON Blood Gas Low PEEP Setting 5.0 Blood Gas Modality VENT - AC Blood Gas Notified Time 06/27/2016 1:07:33 AM Blood Gas Notified Whom MG Blood Gas Respiration Rate 16.0 Blood Gas Specimen Source Blood arterial Blood Gas Temperature 37.0 Blood Gas Tidal Volume 550.0 FiO2 100.0 Oxyhemoglobin Percent 98.9 Total Hemoglobin 13.7 Alanine Aminotransferase (ALT/SGPT) 279 H Albumin 3.0 L Albumin/Globulin Ratio 1.00 Alkaline Phosphatase 83 Anion Gap 25 H Aspartate Amino Transf (AST/SGOT) 138 H Basophils # 0.1 Basophils % 0.3 Blood Morphology Comment Blood Urea Nitrogen 65 H Calcium Level 8.5 Carbon Dioxide Level 17 L Chloride Level 98 Cholesterol Level 73 L Cholesterol/HDL Ratio 6.6 Creatinine 1.57 H Direct Bilirubin 0.00 Eosinophils # 0.0 Eosinophils % 0.1 Globulin 3.00 Glucose Level 107 HDL Cholesterol 11 L Hematocrit 42.7 Hemoglobin 13.1 L Indirect Bilirubin 0.6 LDL Cholesterol, Calculated 46 Lymphocytes # 2.3 Lymphocytes % 10.7 L Magnesium Level 2.3 Mean Corpuscular Hemoglobin 23.6 L Mean Corpuscular Hemoglobin Concent 30.8 L Mean Corpuscular Volume 76.6 L Mean Platelet Volume 9.0 Monocytes # 1.5 H Monocytes % 6.8 Neutrophils # 17.8 H Neutrophils % 82.1 H Nucleated Red Blood Cells # 0.0 Nucleated Red Blood Cells % 0.0 Phosphorus Level 7.3 H Platelet Count 179 # Potassium Level 5.9 H Red Blood Count 5.58 Red Cell Distribution Width 18.6 H Sodium Level 134 L Total Bilirubin 0.6 Total Protein 6.0 L Triglycerides Level 78 White Blood Count 21.7 #H Test 06/27/16 08:00 06/27/16 10:00 Arterial Blood HCO3 19.2 L Arterial Blood Base Excess -3.8 L Arterial Blood Oxygen Saturation 98.3 H Jaspal Test ACCEPTAB Arterial Blood Gas Puncture Site Left Radial Arterial Blood Carboxyhemoglobin 0.8 Arterial Blood Date Drawn 06/27/2016 8:10:21 AM Arterial Blood Methemoglobin 0.4 Arterial Blood pCO2 (Temp correct) 29.4 L Arterial Blood pH (Temp corrected) 7.433 Arterial Blood pO2 (Temp corrected) 120.2 H Blood Gas A-a O2 Differential 203.2 H Blood Gas Actual Respiration Rate 24 Blood Gas Low PEEP Setting 5.0 Blood Gas Modality VENT - AC Blood Gas Notified Time 06/27/2016 8:25:03 AM Blood Gas Notified Whom JLD Blood Gas Respiration Rate 16.0 Blood Gas Specimen Source Blood arterial Blood Gas Temperature 37.0 Blood Gas Tidal Volume 550.0 FiO2 50.0 Oxyhemoglobin Percent 97.1 Total Hemoglobin 14.0 Potassium Level 5.7 H Medications Medications Current Medications Sodium Chloride (NS) 1,000 ml @ 40 mls/hr Q24H IV Last administered on at 18:32; Admin Dose 40 MLS/HR; Start 06/26/16 at 16:00 Ondansetron HCl (Zofran Inj) 4 mg Q6H PRN IV NAUSEA AND/OR VOMITING; Start at 12:00 Nitroglycerin (Nitroglycerin (Sl Tab) 0.4 Mg) 1 tab Q5M PRN SL CHEST PAIN; Start 06/26/16 at 12:00 Acetaminophen (Tylenol Supp) 650 mg Q4H PRN [place] PAIN LEVEL 1-3 OR FEVER; Start 06/26/16 at 12:00 Morphine Sulfate (morphine) 2 mg Q4H PRN IV PAIN LEVEL 7-10; Start 06/26/16 at 12:00 Lorazepam (Ativan) 1 mg Q2H PRN IV ANXIETY Last administered on 06/27/16at 08: 04; Admin Dose 1 MG; Start 06/26/16 at 12:00 Pantoprazole (Protonix Iv) 40 mg DAILY@06 IV Last administered on 06/27/16at 06 :02; Admin Dose 40 MG; Start 06/27/16 at 06:00 Heparin Sodium (Porcine) 5000 unit 5,000 unit BID SC Last administered on 06/27at 09:40; Admin Dose 5,000 UNIT; Start 06/26/16 at 21:00 Cefepime HCl 50 ml @ 100 mls/hr Q12 IVPB Last administered on 06/27/16at 09:34 ; Admin Dose 100 MLS/HR; Start 06/26/16 at 15:00 Levofloxacin/ Dextrose (Levaquin 500mg/ D5W 100 ml (Pmx)) 100 ml @ 100 mls/hr Q24H IVPB Last administered on 06/26/16at 15:16; Admin Dose 100 MLS/HR; Start 06/26/16 at 15:00 Metoprolol Tartrate 12.5 mg 12.5 mg BID PO Last administered on 06/26/16at 22: 04; Admin Dose 12.5 MG; Start 06/26/16 at 21:00 Vancomycin HCl 750 mg/Sodium Chloride 150 ml @ 75 mls/hr Q12H IVPB Last administered on 06/27/16at 07:00; Admin Dose 75 MLS/HR; Start 06/27/16 at 06:00 Propofol (Diprivan) 100 ml @ 2.649 mls/ hr Q12H IV Last administered on at 03:25; Admin Dose 2.649 MLS/HR; Start 06/27/16 at 03:30 Miscellaneous Information (*Rx Drug Level Order Reminder*) VANCO TROUGH @ 0, 500 ON ... ONCE ONCE XX ; Start 06/28/16 at 05:00; Stop 06/28/16 at 05:01 SEVERO STUBBS Jun 27, 2016 12:28
--- NOTE | 2016-06-27 12:59 | CONS ---
DATE OF ADMISSION: 06/26/2016 DATE OF CONSULTATION: 06/27/2016 TYPE OF CONSULTATION: Pulmonary. REASON FOR CONSULTATION: Ventilator management. Thank you, Dr. Terrell, for this consultation. HISTORY OF PRESENT ILLNESS: This is an unfortunate 36-year-old gentleman with multiple medical prob lems including intravenous heroin use, polysubstance abuse, recurrent thrombosis, history of pulmona ry embolus, congestive cardiac failure, who came in for worsening shortness of breath and has a diag nosis of bacterial endocarditis, now with evidence of heart failure on chest x-ray. PAST MEDICAL HISTORY: As above. MEDICATIONS: Per chart. ALLERGIES: NONE. SOCIAL HISTORY: Positive tobacco, alcohol or drug history. SYSTEMS REVIEW: A 12-point review of systems currently unable to perform. PHYSICAL EXAMINATION: GENERAL: A chronically ill-appearing gentleman, intubated on mechanical ventilation, comfortable at rest, no acute distress. VITAL SIGNS: Currently afebrile, pulse is 100, blood pressure 106/50, O2 saturation 96%, FIO2 of 50 %. NECK: Supple. No JVD or lymphadenopathy. CARDIAC: S1, S2, no added sounds or murmurs. CHEST: Diminished air entry bilaterally. ABDOMEN: Soft, nontender. No guarding or rebound. EXTREMITIES: No cyanosis, clubbing, edema. NEUROLOGIC: Unable to assess. LABORATORY DATA: White count 21.7, hemoglobin 13.1, platelets of 173, BUN 65, creatinine 1.57. ABG : pH 7.43, pCO2 of 29, pO2 of 120, bicarbonate 19.9, INR 1.61. DIAGNOSTIC DATA: Chest x-ray was reviewed, shows pulmonary edema. IMPRESSION AND PLAN: 1. Hypoxemic respiratory failure. 2. Possible component of community-acquired pneumonia. 3. Bacterial endocarditis. 4. History of intravenous drug abuse. 5. History of pulmonary embolus. The patient will require: 1. Continued mechanical ventilation. 2. Diuresis if tolerated. 3. Broad-spectrum antibiotics. 4. DVT and GI prophylaxis. Overall prognosis remains guarded. Dictated By: ASAD SPENCER/BRANDO Conf#: [id number] DID#: [id number]
[2016-06-27] MEDS ORDERED: BUMETANIDE 12 MG in DEXTROSE 5% 72 ML IV ONE (13:30)
[2016-06-27] MEDS: SOD CHLORIDE 0.9% 1,000 ML IV SCH (14:01)
[2016-06-27] MEDS: LEVOFLOXACIN 500MG/D5W (PMX) 100 ML IVPB SCH (14:09)
--- NOTE | 2016-06-27 14:13 | CONS ---
DATE OF ADMISSION: 06/26/2016 DATE OF CONSULTATION: 06/27/2016 RENAL CONSULTATION Thank you, Dr. Carroll, for asking me to participate in medical management of this patient. REASON FOR CONSULTATION: Renal failure. HISTORY OF PRESENT ILLNESS: This 36-year-old man is now in the intensive care unit. The patient is intubated on a ventilator and is being sedated with propofol. The patient is unresponsive. The radhames singletary's mother is at the bedside and she is able to provide history for me. I know this patient fro m his previous admission, I saw him on 06/14/2016. At that time the patient was being seen for hypo natremia and acute kidney injury. During that admission, I did an abdominal ultrasound which did sh ow that both kidneys had increased echogenicity consistent with medical renal disease. This led me to think that the patient has chronic kidney disease and that his elevated BUN and creatinine were r elated to him having an acute kidney injury superimposed on chronic kidney disease. The patient had a very high BUN and creatinine ratio which was consistent with under perfusion of his kidneys and c onsistent with a cardiorenal syndrome. The patient does have a history of bacterial endocarditis. After I saw all the patient, he was transferred to [facility] for evaluation of heart valve replacement. According to the patient's mother, they told the patient that he would have to be sobe r for 6 months before they would consider doing a heart valve replacement. The patient does have a history of drug abuse, nicotine abuse. The patient did complete a 6-week course of IV antibiotics w hen I saw him during his last admission. The patient apparently signed out against medical advice a [facility] and went home. While at home, the patient developed increasing shortness of breath and lower extremity edema. He came to the ER 2 days ago. Then, early this morning, he had a code blue. He w as intubated and transferred to the ICU. He did have an episode of PEA and there was some question that he may have aspirated. As I mentioned above, the patient is now sedated and nonresponsive. Th e patient on admission 2 days ago had a serum creatinine of 1.42, BUN was 66. Serum potassium was 5 .6 and then today early this morning, his creatinine was 1.57 with a potassium of 5.9. The patient was given Kayexalate down his NG tube and his potassium was repeated this morning and was 5.7. The patient is putting out some urine. He is on Lasix. PAST MEDICAL HISTORY: 1. Bacterial endocarditis. The patient has vegetations on the mitral and aortic valves. Blood cul tures grew out alpha hemolytic strep. 2. Congestive heart failure, ejection fraction is about 40% with moderate left ventricular enlargem ent. 3. Moderate to severe mitral valve regurgitation. 4. Severe aortic valvular regurgitation. 5. Hepatitis C cirrhosis with coagulopathy and transaminitis and known pulmonary embolism. 6. Chronic peripheral artery disease. 7. Pneumonia. 8. Chronic drug abuse. 9. Hypochromic microcytic anemia of chronic disease. 10. Previous hyponatremia. 11. Right popliteal embolism. CURRENT MEDICATIONS: Include the followin. Vancomycin. 2. Pantoprazole 40 mg IV daily. 3. Propofol drip. 4. Subcutaneous Heparin. 5. Metoprolol 12.5 mg p.o. b.i.d. 6. Furosemide 40 mg IV b.i.d. 7. Cefepime q.12h. 8. Levaquin q.24 hours. 9. Zofran. 10. Nitroglycerin. 11. Acetaminophen. 12. Morphine. 13. Lorazepam. PAST SURGICAL HISTORY: No prior surgical history. FAMILY HISTORY: Unremarkable. SOCIAL HISTORY: The patient does not drink. He is a former smoker, does use heroin. PHYSICAL EXAMINATION: GENERAL: At this time reveals an ill-appearing man who is sedated and unresponsive on a ventilator, intubated. VITAL SIGNS: Pulse of 96, respirations 19, blood pressure 93/41, pulse ox 100%. HEENT: Head normocephalic, ET tube in place. NECK: Difficult to examine. LUNGS: Clear to auscultation. HEART: Regular rhythm. No murmurs, gallops or rubs. ABDOMEN: Soft. There is some scrotal and penile edema. There is some flank edema and there is 2 t o 3+ lower extremity edema. LABORATORY DATA: Most recently, sodium 134, potassium 5.7, chloride 98, CO2 17, BUN 65, creatinine 1.57, albumin 3.0. AST 138, ALT 279, white blood count 21,700, hemoglobin 13.1, hematocrit 42.7. U rinalysis is pending. IMPRESSION: 1. Renal failure. This patient has a combination of acute renal failure superimposed on chronic ki dney disease. The patient is putting out some urine. He did have a code blue cardiac arrest this m orning and may have suffered some low renal perfusion that could precipitate ATN. The patient does have evidence of fluid overload and I would continue diuretics. The patient does have a history of endocarditis. Therefore, it would be important to look at his urinalysis to see if there is any jessee dence of red cells or red cell casts consistent with an acute glomerulonephritis. 2. Endocarditis with vegetations on both mitral and aortic valves. 3. Congestive heart failure due to #2. 4. History of IV heroin use, which could also be contributing to his renal failure. 5. Hepatitis C with elevated liver enzymes. 6. Coagulopathy. 7. Hyperkalemia. 8. Mild hyponatremia. PLAN 1. I would try and aggressively diurese the patient. He does have some mild interstitial edema on his chest x-ray. 2. Continue current antibiotics and adjusted according to his renal failure. 3. Hyperkalemia is being treated with Kayexalate. We will continue to monitor his potassium. 4. Ultimately, the patient will probably need surgical intervention, and if he is stable enough to tolerate this and replace his aortic and mitral valves. 5. I will continue to follow the patient along with you. Dictated By: CRESENCIO CASTILLO MD, ND/BRANDO Conf#: [id number] TRISTIAN#: [id number] CC: DANA CARROLL MD;*EndCC*
--- NOTE | 2016-06-27 15:00 | RADRPT ---
Vent Rate: 108 bpm RR Interval: 0 msec ME Interval: 184 msec QRS Duration: 90 msec QT Interval: 358 msec QTC Interval: 479 msec P-R-T [place]: 72 - 0 - 50 degrees Sinus tachycardia Right superior axis deviation Anterior infarct , age undetermined Abnormal ECG Electronically Signed By: Lefty Sanford [id number]
--- NOTE | 2016-06-27 16:01 | CONS ---
DATE OF ADMISSION: 06/26/2016 DATE OF CONSULTATION: 06/27/2016 TYPE OF CONSULTATION: Infectious Disease. REASON FOR CONSULTATION: Antibiotic management. HISTORY OF PRESENT ILLNESS: Vaughn Ferrell is a 36-year-old white male with numerous problems who is admitted now with a history of bacterial endocarditis and is being seen for antibiotic management. His past problems include: 1. Bacterial endocarditis. He finished 6 weeks of IV antibiotics. 2. Drug abuse. 3. Nicotine abuse. 4. Right popliteal thrombus. 5. Pulmonary emboli, on Eliquis. 6. Microcytic anemia. 7. Diastolic congestive heart failure. Acutely, the patient came in short of breath. He was recently admitted on 06/14/2016 for similar pr esentation. He subsequently went to a tertiary care center for further evaluation and was told that he has an inoperative valve. He left and went home. He has had increasing shortness of breath and now is in the intensive care unit, intubated on a respirator. PAST MEDICAL HISTORY: As outlined. PAST SURGICAL HISTORY: None. SOCIAL HISTORY: He did abuse drugs. He did drink, and he did smoke in the past. He was an every d ay smoker. ALLERGIES: NONE TO PENICILLIN, SULFA, OR FOODS. MEDICATIONS: Per chart. REVIEW OF SYSTEMS: Noncontributory. PHYSICAL EXAMINATION: GENERAL: The patient is a well-developed, well-nourished white male who is sedated on a respirator. He has an ET tube, OG tube, Merino catheter and is going to get a PICC line. SKIN: He has multiple tattoos, especially over his trunk. HEENT: Within normal limits. NECK: Supple. LYMPH NODES: None palpable. CHEST: Decreased breath sounds at the bases. HEART: Grade III/ systolic ejection murmur heard best over the mitral area. ABDOMEN: Soft, nontender, without organosplenomegaly or masses. EXTREMITIES: Without cyanosis or clubbing. He has 2+ lower extremity edema. RECTAL AND GENITAL: He has scrotal edema. NEUROLOGIC: The patient is on propofol. ANCILLARY LABORATORY DATA: White count 15.9, H and H of 13.6 and 43.8, platelet count 255,000. BUN and creatinine 66/1.42. HOSPITAL COURSE: The patient's chest x-ray showed cardiomegaly, pulmonary vascular congestion, shal low inspiration, mild bibasilar subsegmental atelectasis. White count today is 21.7. BUN and creat inine 65/1.57. The patient is on vancomycin and cefepime. He is also on Levaquin. He is being fol lowed by a number of physicians including Dr. Sanford for cardiology, Dr. Mcgill for pulmonary, Dr. Franz for nephrology. The patient has vegetations on the mitral and aortic valves. His blood culture grew out alpha hemolytic strep in the past. His ejection fraction is 40% with moderate lef t ventricular enlargement. He has moderate to severe mitral valve regurgitation, severe aortic valv e regurgitation, history of hepatitis C, cirrhosis, with coagulopathy and transaminitis, and as we мария patrick mentioned, known pulmonary emboli, chronic peripheral artery disease, pneumonia, and multiple ot her problems. He has some renal failure with acute on chronic renal disease. He had a code blue I believe this morning. Overall, his prognosis is very poor. The issue is whether he is able to tole rate replacement of his aortic and mitral valves. I will dictate my findings to the hospitalist and to the aforementioned physicians. Dictated By: JULIO CESAR AGUILAR MD, JD/BRANDO Conf#: [id number] DID#: [id number]
--- NOTE | 2016-06-27 16:21 | RADRPT ---
PROCEDURE: XR Chest. CLINICAL INDICATION: PICC line placement TECHNIQUE: Single frontal view of the chest was obtained COMPARISON: Same day FINDINGS: There is a new left-sided PICC line in place with its tip overlying the mid right atrium. The heart, mediastinum, and lungs are unchanged. There is an endotracheal tube and nasogastric tube in place. There is mild cardiomegaly with pulmon aubree vascular congestion. RPTAT: AA IMPRESSION: New PICC line with its tip overlying the mid right atrium. Consider retraction of 5 cm. Mild cardiomegaly with pulmonary vascular congestion. .Toño Webber MD, MD Date Time Electronically viewed and signed by .Toño Webber MD, MD on 06/27/2016 16:21 .S/
--- NOTE | 2016-06-27 16:27 | RADRPT ---
PROCEDURE: US guidance for PICC line CLINICAL INDICATION: PICC line placement TECHNIQUE: Multiple real-time images were acquired of the patient's arm utilizing a high resolutio n transducer. This was performed by the PICC line nurse for venous access. COMPARISON: None FINDINGS: Ultrasound guidance for PICC line placement. IMPRESSION: Ultrasound guidance for PICC line placement. RPTAT: AA .Toño Webber MD, MD Date Time Electronically viewed and signed by .Toño Webber MD, on 06/27/2016 16:26 .S/
--- NOTE | 2016-06-27 19:55 | CONS ---
DATE OF ADMISSION: 06/26/2016 DATE OF CONSULTATION: REASON FOR CONSULTATION: Mitral valve regurgitation. HISTORY OF PRESENT ILLNESS: This is a 36-year-old male with a history of IV drug abuse, admitted wi th bacterial endocarditis. Subsequently was seen at [facility] for possible cardiac surgery. He had sign ed out AMA. Now is being admitted because of respiratory failure. Currently in the intensive care unit, intubated with FIO2 40%, saturations 100%, blood pressure is 96/52, pulse is 94, respirations 18. The patient has had an echocardiogram, which showed an ejection fraction of 40% earlier this month, with aortic regurgitation, [id number], with possible ongoing vegetation by echo. The patien t also has mitral regurgitation, [id number]. PAST MEDICAL HISTORY: Renal failure, history of IV drug use. The patient has had hepatitis C that is positive, hepatitis B antigen and antibody negative, hepatitis C antibody positive, and high tite rs also for hepatitis C, virus RNA. Also positive for elevation of transaminases, hyponatremia, CHF , popliteal thrombus. Currently unresponsive. MEDICATIONS: List reviewed. SOCIAL HISTORY: Positive for history of drug use. PHYSICAL EXAMINATION: GENERAL: Unresponsive. Patient has cachexia and bitemporal wasting. VITAL SIGNS: Blood pressure is 94/56, pulse is 94, respirations 18, saturations 100%. HEENT: Normocephalic, atraumatic. CARDIOVASCULAR: Normal S1, S2, with systolic and diastolic murmur. LUNGS: Have diminished breath sounds at the bases. ABDOMEN: Soft. EXTREMITIES: Warm with 1+ edema. LABORATORY VALUES: Significant for a white count of 21.7 with a left shift, hemoglobin 11.1, platel et count 179,000. INR 1.61. BUN 65, creatinine 1.57. IMPRESSION: 1. Endocarditis involving aortic and mitral valve. 2. Aortic regurgitation. 3. Mitral regurgitation. 4. Cardiomyopathy with diminished ejection fraction. 5. Renal failure. 6. History of drug use. 7. Elevation of the transaminases. 8. Coagulopathy. RECOMMENDATIONS: This patient is not a candidate to undergo surgery at the present time; too high r isk for surgical repair. Please continue antibiotics. Discussed with the nursing staff. Will disc uss with the referring physicians. Dictated By: KARI DESOUZA/BRANDO Conf#: [id number] DID#: [id number]
[2016-06-27 20:03] LABS: ADD UMIC NO; URINE BILIRUBIN (Dip) NEGATIVE (NEGATIVE); URINE BLOOD (Dip) NEGATIVE (NEGATIVE); URINE COLOR LT. YELLOW (YELLOW); URINE GLUCOSE (Dip) NEGATIVE (NEGATIVE); URINE KETONES (Dip) NEGATIVE (NEGATIVE); URINE LEUKOCYTE ESTERASE (Dip) NEGATIVE (NEGATIVE); URINE NITRITE (Dip) NEGATIVE (NEGATIVE); URINE TOTAL PROTEIN (Dip) NEGATIVE (NEGATIVE); URINE UROBILINOGEN (Dip) 0.2 E.U./dL (0.1-1.0)
[2016-06-28] VITALS (39 sets, daily range): BP systolic 103–118; BP diastolic 46–58; PULSE 102–117; RESP 16–23
[2016-06-28] MEDS: PROPOFOL 100 ML IV SCH ×3 (03:22→18:50)
[2016-06-28] MEDS: VANCOMYCIN 750 MG in SOD CHLORIDE 0.9% 150 ML IVPB SCH (05:40)
[2016-06-28] MEDS: PANTOPRAZOLE 40 MG INJ IV SCH (05:40)
[2016-06-28 06:06] LABS: BASOPHILS % 0.3 % (0.0-2.0); HEMOGLOBIN 11.4 g/dl (14.0-18.0); LYMPHOCYTES # 0.9 10^3/ul (0.8-2.9); LYMPHOCYTES % 6.2 % (15.0-51.0); MEAN CORPUSCULAR HEMOGLOBIN 24.2 pg (29.0-33.0); MEAN CORPUSCULAR HGB CONC 31.8 g/dl (32.0-37.0); MEAN PLATELET VOLUME 8.8 fl (7.4-10.4); MONOCYTE # 1.3 10^3/ul (0.3-0.9); MONOCYTES % 8.9 % (0.0-11.0); NEUTROPHIL # 12.5 10^3/ul (1.6-7.5); NEUTROPHILS % 84.6 % (39.0-77.0); PLATELET COUNT 163 10^3/UL (140-440); RED BLOOD COUNT 4.73 10^6/ul (4.70-6.10); RED CELL DISTRIBUTION WIDTH 18.8 % (11.5-14.5); UNCORRECTED WBC 14.8 10^3/ul (4.8-10.8); WHITE BLOOD COUNT 14.8 10^3/ul (4.8-10.8)
[2016-06-28 06:14] LABS: ALBUMIN 2.3 g/dl (3.3-4.9); POTASSIUM 3.7 mmol/L (3.5-5.1)
[2016-06-28 06:16] LABS: CREATININE 1.78 mg/dl (0.61-1.24)
[2016-06-28 06:17] LABS: ALBUMIN/GLOBULIN RATIO 0.88; BILIRUBIN,INDIRECT 0.4 mg/dl (0-1.1); BILIRUBIN,TOTAL 0.4 mg/dl (0.2-1.3); CALCIUM 7.9 mg/dl (8.4-10.2); TOTAL PROTEIN 4.9 g/dl (6.1-8.1)
[2016-06-28 06:23] LABS: NUCLEATED RED BLOOD CELLS # 0.3 10^3/ul (0.0-0.0)
[2016-06-28 06:24] LABS: CONDITION 1; LH ANALYZER COMMENTS 1
--- NOTE | 2016-06-28 08:19 | PN ---
Date/Time of Note Date/Time of Note DATE: 06/28/16 TIME: 08:13 Assessment/Plan VTE Prophylaxis VTE Prophylaxis Intervention: heparin Lines/Catheters IV Catheter Type (from Nrsg): PICC Line Central line still needed: Yes Urinary Cath still in place: Yes Reason Cath still needed: skin wounds contaminated by urine Assessment/Plan Assessment/Plan 36 yo unfortunate male with a past medical history of Bacterial Endocarditis finished 6 week course of IV antibiotics, Drug abuse, Nicotine abuse, Right popliteal thrombosis, PE on Eliquis, Microcytic anemia, CHF - diastolic, who came for worsening shortness of breath. 1. Shortness of breath - hypoxemic respiratory failure - multifactorial - heart failure acute on chronic - Vent dependent - intubated - f/u pulm recs - ABG this morning 2. Sepsis severe 2/2 to pneumonia - tachycardia/leukocytosis - HCAP - IV cefepime, levaquin, vanc - respiratory cultures, monitor trend - improving - appreciate ID recs 3. CHF - diastolic dysfunction acute on chronic - EF recent shows 40%, D shaped left ventricle, consult cardiology, bumex drip 4. Hyponatremia - 2/2 fluid overload - consult nephrology 5. BESSIE - acute on chronic - 2/2 #2 - worsening - ATN with AIN component 6. Transaminitis - 2/2 to sepsis, or possible atypical pneumonia, monitor trend - improving 7. PE on eliquis - continue 8. Right popliteal thrombus - continue with eliquis 9. Microcytic anemia - monitor H/H, transfuse if hgb < 8 g/dL 10. GI ppx - protonix 11. DVT ppx - eliquis dispo - f/u recs, palliative care consult - will monitor functional status this critical care note took greater than 40 min to complete Subjective 24 Hr Interval Summary Free Text/Dictation Patient still having bleeding through the NGT while suctioning. No other overnight events. Spoke to the nurse about the care plan. 15 minutes spent. Exam/Review of Systems Vital Signs Vitals Vital Signs Date Time Temp Pulse Resp B/P Pulse Ox O2 Delivery O2 Flow Rate FiO2 06/28/16 07:00 98.1 108 19 109/55 97 Mechanical Ventilator 06/28/16 04:55 30 06/26/16 18:48 5.0 Intake and Output 06/27/16 06/27/16 06/28/16 15:00 23:00 07:00 Intake Total 363.572 ml 770.924 ml 574.627 ml Output Total 280 ml 700 ml 600 ml Balance 83.572 ml 70.924 ml -25.373 ml Exam Gen Evelyn: sedated/intubated HEENT: NC/AT, ETT in place NECK: supple, no thyromegaly THORAX: symmetrical, no obvious deformities CV: S1S2, RRR, III/ systolic murmur best heard over mitral area Lungs: Coarse breath sounds, scattered wheezing, bibasilar crackles Abd: soft, NT/ND, +BS, no rebound, no guarding, neg HSM : scrotal edema EXT: 2+ bilateral lower extremities edema, no ecchymosis, no clubbing, FROM, mild cyanosis noted at phalanges bilaterally lower extremities Neuro: cannot assess - intubated/sedated Psych: agitated Skin: see ext Results Result Diagram: 06/28/16 0530 06/28/16 0530 Results 24 hrs Laboratory Tests Test 06/27/16 10:00 06/27/16 16:40 06/27/16 18:55 06/28/16 05:30 Potassium Level 5.7 H 4.9 3.7 Urine Bilirubin NEGATIVE Urine Clarity CLEAR Urine Color LT. YELLOW Urine Glucose NEGATIVE Urine Hemoglobin NEGATIVE Urine Ketones NEGATIVE Urine Leukocyte Esterase NEGATIVE Urine Nitrite NEGATIVE Urine Specific [place] 1.025 Urine Total Protein NEGATIVE Urine Urobilinogen 0.2 E.U./dL Urine pH 5.5 Alanine Aminotransferase (ALT/SGPT) 196 H Albumin 2.3 L Albumin/Globulin Ratio 0.88 Alkaline Phosphatase 63 Anion Gap 17 #H Aspartate Amino Transf (AST/SGOT) 106 H Basophils # 0.0 Basophils % 0.3 Blood Morphology Comment Blood Urea Nitrogen 78 H Calcium Level 7.9 L Carbon Dioxide Level 27 # Chloride Level 98 Creatinine 1.78 H Direct Bilirubin 0.00 Eosinophils # 0.0 Eosinophils % 0.0 Globulin 2.60 Glucose Level 99 Hematocrit 36.0 L Hemoglobin 11.4 L Indirect Bilirubin 0.4 Lymphocytes # 0.9 Lymphocytes % 6.2 L Mean Corpuscular Hemoglobin 24.2 L Mean Corpuscular Hemoglobin Concent 31.8 L Mean Corpuscular Volume 76.0 L Mean Platelet Volume 8.8 Monocytes # 1.3 H Monocytes % 8.9 Neutrophils # 12.5 H Neutrophils % 84.6 H Nucleated Red Blood Cells # 0.3 H Nucleated Red Blood Cells % 2.0 H Platelet Count 163 Red Blood Count 4.73 Red Cell Distribution Width 18.8 H Sodium Level 138 Total Bilirubin 0.4 Total Protein 4.9 #L Vancomycin Level Trough 17.8 White Blood Count 14.8 #H Medications Medications Current Medications Sodium Chloride (NS) 1,000 ml @ 40 mls/hr Q24H IV Last administered on at 14:01; Admin Dose 40 MLS/HR; Start 06/26/16 at 16:00 Ondansetron HCl (Zofran Inj) 4 mg Q6H PRN IV NAUSEA AND/OR VOMITING; Start at 12:00 Nitroglycerin (Nitroglycerin (Sl Tab) 0.4 Mg) 1 tab Q5M PRN SL CHEST PAIN; Start 06/26/16 at 12:00 Acetaminophen (Tylenol Supp) [address] PAIN LEVEL 1-3 OR FEVER; Start 06/26/16 at 12:00 Morphine Sulfate (morphine) 2 mg Q4H PRN IV PAIN LEVEL 7-10; Start 06/26/16 at 12:00 Lorazepam (Ativan) 1 mg Q2H PRN IV ANXIETY Last administered on 06/27/16at 08: 04; Admin Dose 1 MG; Start 06/26/16 at 12:00 Pantoprazole (Protonix Iv) 40 mg DAILY@06 IV Last administered on 06/28/16at 05 :40; Admin Dose 40 MG; Start 06/27/16 at 06:00 Heparin Sodium (Porcine) 5000 unit 5,000 unit BID SC Last administered on 06/27at 22:10; Admin Dose 5,000 UNIT; Start 06/26/16 at 21:00 Cefepime HCl 50 ml @ 100 mls/hr Q12 IVPB Last administered on 06/27/16at 22:10 ; Admin Dose 100 MLS/HR; Start 06/26/16 at 15:00 Levofloxacin/ Dextrose (Levaquin 500mg/ D5W 100 ml (Pmx)) 100 ml @ 100 mls/hr Q24H IVPB Last administered on 06/27/16at 14:09; Admin Dose 100 MLS/HR; Start 06/26/16 at 15:00 Metoprolol Tartrate 12.5 mg 12.5 mg BID PO Last administered on 06/26/16at 22: 04; Admin Dose 12.5 MG; Start 06/26/16 at 21:00 Vancomycin HCl 750 mg/Sodium Chloride 150 ml @ 75 mls/hr Q12H IVPB Last administered on 06/28/16at 05:40; Admin Dose 75 MLS/HR; Start 06/27/16 at 06:00 Propofol (Diprivan) 100 ml @ 2.649 mls/ hr Q12H IV Last administered on at 03:22; Admin Dose 10.596 MLS/HR; Start 06/27/16 at 03:30 IV Flush (NS 10 ml) 10 ml PRN PRN IV IV PROTOCOL; Start 06/27/16 at 16:30 Procedures Procedures CXR IMPRESSION: Cardiomegaly . Nasogastric tube with its distal end in the expected location of the stomach. Stable mild interstitial prominence in both lungs. Stable small to moderate right pleural effusion with associated lower lung atelectasis. JC BROUSSARD MD Jun 28, 2016 08:19
[2016-06-28] MEDS: CEFEPIME 1GM/50 ML (PMX) 50 ML IVPB SCH ×2 (08:23→21:08)
[2016-06-28] MEDS: METOPROLOL 25 MG TAB PO SCH ×2 (08:24→21:11)
--- NOTE | 2016-06-28 08:26 | CONS ---
Date/Time of Note Date/Time of Note DATE: 06/28/16 TIME: 08:16 Assessment/Plan Assessment/Plan Chief Complaint/Hosp Course 1. acute renal failure superimposed on CKD . He is non oliguric and his urine output is increasing on a Bumex drip .Will continue Bumex drip 2. 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 3. CHF 4. hepatitis C with elevated liver enzymes 5. respiratory failure , ventilator dependent 6. hyperkalemia , potassium is corrected Problems: Consultation Date/Type/Reason Admit Date/Time Jun 26, 2016 at 11:39 Initial Consult Date Type of Consultation: Cardiology Referring Provider: JC BROUSSARD MD 24 HR Interval Summary Free Text/Dictation He is sedated , intubated on a ventilator in the ICU . Subjective hx not possible: pt non-verbal Exam/Review of Systems Vital Signs Vitals Vital Signs Date Time Temp Pulse Resp B/P Pulse Ox O2 Delivery O2 Flow Rate FiO2 06/28/16 07:00 98.1 108 19 109/55 97 Mechanical Ventilator 06/28/16 04:55 30 06/26/16 18:48 5.0 Intake and Output 06/27/16 06/27/16 06/28/16 15:00 23:00 07:00 Intake Total 363.572 ml 770.924 ml 574.627 ml Output Total 280 ml 700 ml 600 ml Balance 83.572 ml 70.924 ml -25.373 ml Exam Constitutional: non-verbal Respiratory: clear to auscultation Cardiovascular: regular rate and rhythm Gastrointestinal: soft Extremities: edema Results Result Diagram: 06/28/16 0530 06/28/16 0530 Results 24 hrs Laboratory Tests Test 06/27/16 10:00 06/27/16 16:40 06/27/16 18:55 06/28/16 05:30 Potassium Level 5.7 H 4.9 3.7 Urine Bilirubin NEGATIVE Urine Clarity CLEAR Urine Color LT. YELLOW Urine Glucose NEGATIVE Urine Hemoglobin NEGATIVE Urine Ketones NEGATIVE Urine Leukocyte Esterase NEGATIVE Urine Nitrite NEGATIVE Urine Specific [place] 1.025 Urine Total Protein NEGATIVE Urine Urobilinogen 0.2 E.U./dL Urine pH 5.5 Alanine Aminotransferase (ALT/SGPT) 196 H Albumin 2.3 L Albumin/Globulin Ratio 0.88 Alkaline Phosphatase 63 Anion Gap 17 #H Aspartate Amino Transf (AST/SGOT) 106 H Basophils # 0.0 Basophils % 0.3 Blood Morphology Comment Blood Urea Nitrogen 78 H Calcium Level 7.9 L Carbon Dioxide Level 27 # Chloride Level 98 Creatinine 1.78 H Direct Bilirubin 0.00 Eosinophils # 0.0 Eosinophils % 0.0 Globulin 2.60 Glucose Level 99 Hematocrit 36.0 L Hemoglobin 11.4 L Indirect Bilirubin 0.4 Lymphocytes # 0.9 Lymphocytes % 6.2 L Mean Corpuscular Hemoglobin 24.2 L Mean Corpuscular Hemoglobin Concent 31.8 L Mean Corpuscular Volume 76.0 L Mean Platelet Volume 8.8 Monocytes # 1.3 H Monocytes % 8.9 Neutrophils # 12.5 H Neutrophils % 84.6 H Nucleated Red Blood Cells # 0.3 H Nucleated Red Blood Cells % 2.0 H Platelet Count 163 Red Blood Count 4.73 Red Cell Distribution Width 18.8 H Sodium Level 138 Total Bilirubin 0.4 Total Protein 4.9 #L Vancomycin Level Trough 17.8 White Blood Count 14.8 #H Medications Medications Current Medications Sodium Chloride (NS) 1,000 ml @ 40 mls/hr Q24H IV Last administered on at 14:01; Admin Dose 40 MLS/HR; Start 06/26/16 at 16:00 Ondansetron HCl (Zofran Inj) 4 mg Q6H PRN IV NAUSEA AND/OR VOMITING; Start at 12:00 Nitroglycerin (Nitroglycerin (Sl Tab) 0.4 Mg) 1 tab Q5M PRN SL CHEST PAIN; Start 06/26/16 at 12:00 Acetaminophen (Tylenol Supp) 650 mg Q4H PRN NE PAIN LEVEL 1-3 OR FEVER; Start 06/26/16 at 12:00 Morphine Sulfate (morphine) 2 mg Q4H PRN IV PAIN LEVEL 7-10; Start 06/26/16 at 12:00 Lorazepam (Ativan) 1 mg Q2H PRN IV ANXIETY Last administered on 06/27/16at 08: 04; Admin Dose 1 MG; Start 06/26/16 at 12:00 Pantoprazole (Protonix Iv) 40 mg DAILY@06 IV Last administered on 06/28/16at 05 :40; Admin Dose 40 MG; Start 06/27/16 at 06:00 Heparin Sodium (Porcine) 5000 unit 5,000 unit BID SC Last administered on 06/27at 22:10; Admin Dose 5,000 UNIT; Start 06/26/16 at 21:00 Cefepime HCl 50 ml @ 100 mls/hr Q12 IVPB Last administered on 06/27/16at 22:10 ; Admin Dose 100 MLS/HR; Start 06/26/16 at 15:00 Levofloxacin/ Dextrose (Levaquin 500mg/ D5W 100 ml (Pmx)) 100 ml @ 100 mls/hr Q24H IVPB Last administered on 06/27/16at 14:09; Admin Dose 100 MLS/HR; Start 06/26/16 at 15:00 Metoprolol Tartrate 12.5 mg 12.5 mg BID PO Last administered on 06/26/16at 22: 04; Admin Dose 12.5 MG; Start 06/26/16 at 21:00 Vancomycin HCl 750 mg/Sodium Chloride 150 ml @ 75 mls/hr Q12H IVPB Last administered on 06/28/16at 05:40; Admin Dose 75 MLS/HR; Start 06/27/16 at 06:00 Propofol (Diprivan) 100 ml @ 2.649 mls/ hr Q12H IV Last administered on at 03:22; Admin Dose 10.596 MLS/HR; Start 06/27/16 at 03:30 IV Flush (NS 10 ml) 10 ml PRN PRN IV IV PROTOCOL; Start 06/27/16 at 16:30 CRESENCIO CASTILLO MD Jun 28, 2016 08:26
[2016-06-28 08:30] LABS: AADO2 Arterial 46.3 mmHg (7.0-24.0); Allen Test ACCEPTAB; Arterial Base Excess 5.1 mmol/L (-3.0-3); Arterial COHb 0.8 % (0.0-3.0); Arterial Fraction of Oxyhgb 97.7 % (93.0-99.0); Arterial HCO3 27.8 mmol/L (22.0-26.0); Arterial MetHb 0.3 % (0.0-1.5); Arterial Total Hemglobin 12.6 g/dl (12.0-18.0); MODE VENT - AC
[2016-06-28] MEDS: HEPARIN 5,000 UNIT/0.5 ML SYG SC SCH ×2 (08:31→21:18)
[2016-06-28] MEDS: PANTOPRAZOLE IV 80 MG in SOD CHLORIDE 0.9% 100 ML IV SCH ×2 (09:37→18:49)
--- NOTE | 2016-06-28 11:23 | RADRPT ---
PROCEDURE: XR Chest. CLINICAL INDICATION: Respiratory failure TECHNIQUE: An AP view of the chest was obtained. COMPARISON: Chest x-ray dated 06/27/2016 FINDINGS: The endotracheal tube tip is approximately 3.8 cm above the charanjit. The tip of the enteric tube ex tends below the left diaphragm. There is a left upper extremity PICC line with tip near the cavoatri al junction. There is prominence of the interstitial and central pulmonary vascular markings. There are small b ilateral pleural effusions. No focal airspace opacification or pneumothorax is seen. The cardiomedi astinal silhouette is mildly enlarged . The osseous structures demonstrate senescent changes. IMPRESSION: 1. Findings suggestive of pulmonary vascular congestion with small bilateral pleural effusions, un changed to mildly increased when compared to the prior examination. 2. Mild cardiomegaly. 3. Tubes and lines, as described above. RPTAT: HH .Erika Guevara MD, MD Date Time Electronically viewed and signed by .Erika Guevara MD, on 06/28/2016 11:23 .G/
--- NOTE | 2016-06-28 11:39 | CONS ---
Date/Time of Note Date/Time of Note DATE: 06/28/16 TIME: 11:37 Consult Date/Type/Reason Admit Date/Time Jun 26, 2016 at 11:39 Initial Consult Date Type of Consultation: pulmonary Ordering Provider: JC BROUSSARD MD Subjective Patient stable on mechanical ventilation Agitation off sedation Continues Bumex drip Objective Vital Signs Date Time Temp Pulse Resp B/P Pulse Ox O2 Delivery O2 Flow Rate FiO2 06/28/16 11:00 108 20 108/47 97 Mechanical Ventilator 06/28/16 08:00 30 06/28/16 07:00 98.1 06/26/16 18:48 5.0 Intake and Output 06/27/16 06/27/16 06/28/16 15:00 23:00 07:00 Intake Total 363.572 ml 770.924 ml 574.627 ml Output Total 280 ml 700 ml 680 ml Balance 83.572 ml 70.924 ml -105.373 ml PHYSICAL EXAMINATION: GENERAL: A chronically ill-appearing gentleman, intubated on mechanical ventilation, comfortable at rest, no acute distress. VITAL SIGNS: As above NECK: Supple. No JVD or lymphadenopathy. CARDIAC: S1, S2, no added sounds or murmurs. CHEST: Diminished air entry bilaterally. ABDOMEN: Soft, nontender. No guarding or rebound. EXTREMITIES: No cyanosis, clubbing, edema. NEUROLOGIC: Unable to assess. Results/Medications Result Diagram: 06/28/16 0530 06/28/16 0530 Results 24 hrs Chest x-ray Pulmonary edema and extensive bilateral pleural effusions Laboratory Tests Test 06/27/16 16:40 06/27/16 18:55 06/28/16 05:30 06/28/16 07:00 Urine Bilirubin NEGATIVE Urine Clarity CLEAR Urine Color LT. YELLOW Urine Glucose NEGATIVE Urine Hemoglobin NEGATIVE Urine Ketones NEGATIVE Urine Leukocyte Esterase NEGATIVE Urine Nitrite NEGATIVE Urine Specific [place] 1.025 Urine Total Protein NEGATIVE Urine Urobilinogen 0.2 E.U./dL Urine pH 5.5 Potassium Level 4.9 3.7 Alanine Aminotransferase (ALT/SGPT) 196 H Albumin 2.3 L Albumin/Globulin Ratio 0.88 Alkaline Phosphatase 63 Anion Gap 17 #H Aspartate Amino Transf (AST/SGOT) 106 H Basophils # 0.0 Basophils % 0.3 Blood Morphology Comment Blood Urea Nitrogen 78 H Calcium Level 7.9 L Carbon Dioxide Level 27 # Chloride Level 98 Creatinine 1.78 H Direct Bilirubin 0.00 Eosinophils # 0.0 Eosinophils % 0.0 Globulin 2.60 Glucose Level 99 Hematocrit 36.0 L Hemoglobin 11.4 L Indirect Bilirubin 0.4 Lymphocytes # 0.9 Lymphocytes % 6.2 L Mean Corpuscular Hemoglobin 24.2 L Mean Corpuscular Hemoglobin Concent 31.8 L Mean Corpuscular Volume 76.0 L Mean Platelet Volume 8.8 Monocytes # 1.3 H Monocytes % 8.9 Neutrophils # 12.5 H Neutrophils % 84.6 H Nucleated Red Blood Cells # 0.3 H Nucleated Red Blood Cells % 2.0 H Platelet Count 163 Red Blood Count 4.73 Red Cell Distribution Width 18.8 H Sodium Level 138 Total Bilirubin 0.4 Total Protein 4.9 #L Vancomycin Level Trough 17.8 White Blood Count 14.8 #H Arterial Blood HCO3 27.8 H Arterial Blood Base Excess 5.1 H Arterial Blood Oxygen Saturation 98.8 H Jaspal Test ACCEPTAB Arterial Blood Gas Puncture Site Right Radial Arterial Blood Carboxyhemoglobin 0.8 Arterial Blood Date Drawn 06/28/2016 7:50:23 AM Arterial Blood Methemoglobin 0.3 Arterial Blood pCO2 (Temp correct) 34.5 L Arterial Blood pH (Temp corrected) 7.524 H Arterial Blood pO2 (Temp corrected) 127.1 H Blood Gas A-a O2 Differential 46.3 H Blood Gas Actual Respiration Rate 18 Blood Gas Low PEEP Setting 5.0 Blood Gas Modality VENT - AC Blood Gas Notified Time 06/28/2016 8:30:03 AM Blood Gas Notified Whom JLD Blood Gas Respiration Rate 16.0 Blood Gas Specimen Source Blood arterial Blood Gas Temperature 37.0 Blood Gas Tidal Volume 550.0 FiO2 30.0 Oxyhemoglobin Percent 97.7 Total Hemoglobin 12.6 Medications Current Medications Sodium Chloride (NS) 1,000 ml @ 40 mls/hr Q24H IV Last administered on at 14:01; Admin Dose 40 MLS/HR; Start 06/26/16 at 16:00 Ondansetron HCl (Zofran Inj) 4 mg Q6H PRN IV NAUSEA AND/OR VOMITING; Start at 12:00 Nitroglycerin (Nitroglycerin (Sl Tab) 0.4 Mg) 1 tab Q5M PRN SL CHEST PAIN; Start 06/26/16 at 12:00 Acetaminophen (Tylenol Supp) 650 mg Q4H PRN [place] PAIN LEVEL 1-3 OR FEVER; Start 06/26/16 at 12:00 Morphine Sulfate (morphine) 2 mg Q4H PRN IV PAIN LEVEL 7-10; Start 06/26/16 at 12:00 Lorazepam (Ativan) 1 mg Q2H PRN IV ANXIETY Last administered on 06/27/16 08: 04; Admin Dose 1 MG; Start 06/26/16 at 12:00 Heparin Sodium (Porcine) 5000 unit 5,000 unit BID SC Last administered on 06/28at 08:31; Admin Dose 5,000 UNIT; Start 06/26/16 at 21:00 Cefepime HCl 50 ml @ 100 mls/hr Q12 IVPB Last administered on 06/28/16at 08:23 ; Admin Dose 100 MLS/HR; Start 06/26/16 at 15:00 Levofloxacin/ Dextrose (Levaquin 500mg/ D5W 100 ml (Pmx)) 100 ml @ 100 mls/hr Q24H IVPB Last administered on 06/27/16at 14:09; Admin Dose 100 MLS/HR; Start 06/26/16 at 15:00 Metoprolol Tartrate 12.5 mg 12.5 mg BID PO Last administered on 06/28/16at 08: 24; Admin Dose 12.5 MG; Start 06/26/16 at 21:00 Propofol (Diprivan) 100 ml @ 2.649 mls/ hr Q12H IV Last administered on at 10:23; Admin Dose 10.596 MLS/HR; Start 06/27/16 at 03:30 IV Flush 10 ml 10 ml PRN PRN IV IV PROTOCOL; Start 06/27/16 at 16:30 Pantoprazole 80 mg/Sodium Chloride 100 ml @ 10 mls/hr Q10H IV Last administered on 06/28/16at 09:37; Admin Dose 10 MLS/HR; Start 06/28/16 at 09:30 Vancomycin HCl/ Sodium Chloride (Vancocin/NS) 250 ml @ 83.333 mls/ hr Q24H IVPB ; Start 06/28/16 at 22:00 Assessment/Plan Chief Complaint/Hosp Course IMPRESSION AND PLAN: 1. Hypoxemic respiratory failure. Secondary to congestive cardiac failure 2. Possible component of community-acquired pneumonia. 3. Bacterial endocarditis. 4. History of intravenous drug abuse. 5. History of pulmonary embolus. 6. Renal insufficiency The patient will require: 1. Continued mechanical ventilation. 2. Diuresis if tolerated. Continues Bumex 3. Broad-spectrum antibiotics. 4. DVT and GI prophylaxis. 5. May require thoracentesis if pleural effusions continued to increase in size Problems: ASAD DAS MD, [facility] Jun 28, 2016 11:39
[2016-06-28] MEDS: LEVOFLOXACIN 500MG/D5W (PMX) 100 ML IVPB SCH (14:51)
--- NOTE | 2016-06-28 15:46 | CONS ---
Date/Time of Note Date/Time of Note DATE: 06/28/16 TIME: 15:42 Assessment/Plan Assessment/Plan Chief Complaint/Hosp Course IMPRESSION: 1. Congestive heart failure exacerbation, systolic, acute on chronic with last known EF approximately 40% by echo May 2016. 2. Aortic regurgitation, moderate to severe with possible ongoing vegetation by most recent echo May 2016. 3. Mitral regurgitation, moderate to severe. 4. History of recent endocarditis status post 6-week course of antibiotics. 5. Cardiomyopathy with decreased left ventricular ejection fraction last approximately 40% by echo 06/14/2016. 6. Coagulopathy. 7. Renal failure. 8. Hyperkalemia-ongoing 9. Increased LFTs. 10. Increased BNP. 11. Leukocytosis. 12. Mild anemia. 13.Resp failure s/p intubation 14. s/p Code blue Recc: -Tele -Lasix diuresis -Low dose BB as tolerated only and will make slight increase -Per CT surgery not a candidate for valve replacement at this time due to high risk. Would attempt transfer to tertiary care center again -F/U blood cultures -Continue abx's Problems: Consultation Date/Type/Reason Admit Date/Time Jun 26, 2016 at 11:39 Initial Consult Date 06/27/2016 Type of Consultation: Cardiology Reason for Consultation CHF/AR/MR Referring Provider: JC BROUSSARD MD Exam/Review of Systems Vital Signs Vitals Vital Signs Date Time Temp Pulse Resp B/P Pulse Ox O2 Delivery O2 Flow Rate FiO2 06/28/16 15:00 115 19 112/50 97 Mechanical Ventilator 06/28/16 12:56 30 06/28/16 12:00 98.4 06/26/16 18:48 5.0 Intake and Output 06/27/16 06/27/16 06/28/16 14:59 22:59 06:59 Intake Total 221.036 ml 759.864 ml 609.633 ml Output Total 280 ml 635 ml 700 ml Balance -58.964 ml 124.864 ml -90.367 ml Exam Review of Systems: CONSTITUTIONAL: No fevers, chills. PULMONARY: intubated CARDIOVASCULAR: No obvious chest pain/palpitations GASTROINTESTINAL: No nausea/vomiting. GENITOURINARY: No hematuria/dysuria. MUSCULOSKELETAL: No obvious myagias/arthalgias. PSYCHIATRIC: No documented depression. NEUROLOGIC: No weakness Constitutional: other (sedated) Psych: no complaints ENMT: intubated Neck: jvd (9 cm water), supple Respiratory: diminished breath sounds (at bases/B) Cardiovascular: regular rate and rhythm Gastrointestinal: non-tender, soft Musculoskeletal: muscle tone (normal) Extremities: edema (none) Neurological: other (sedated) Results Result Diagram: 06/28/16 0530 06/28/16 0530 Results 24 hrs Laboratory Tests Test 06/27/16 16:40 06/27/16 18:55 06/28/16 05:30 06/28/16 07:00 Urine Bilirubin NEGATIVE Urine Clarity CLEAR Urine Color LT. YELLOW Urine Glucose NEGATIVE Urine Hemoglobin NEGATIVE Urine Ketones NEGATIVE Urine Leukocyte Esterase NEGATIVE Urine Nitrite NEGATIVE Urine Specific [place] 1.025 Urine Total Protein NEGATIVE Urine Urobilinogen 0.2 E.U./dL Urine pH 5.5 Potassium Level 4.9 3.7 Alanine Aminotransferase (ALT/SGPT) 196 H Albumin 2.3 L Albumin/Globulin Ratio 0.88 Alkaline Phosphatase 63 Anion Gap 17 #H Aspartate Amino Transf (AST/SGOT) 106 H Basophils # 0.0 Basophils % 0.3 Blood Morphology Comment Blood Urea Nitrogen 78 H Calcium Level 7.9 L Carbon Dioxide Level 27 # Chloride Level 98 Creatinine 1.78 H Direct Bilirubin 0.00 Eosinophils # 0.0 Eosinophils % 0.0 Globulin 2.60 Glucose Level 99 Hematocrit 36.0 L Hemoglobin 11.4 L Indirect Bilirubin 0.4 Lymphocytes # 0.9 Lymphocytes % 6.2 L Mean Corpuscular Hemoglobin 24.2 L Mean Corpuscular Hemoglobin Concent 31.8 L Mean Corpuscular Volume 76.0 L Mean Platelet Volume 8.8 Monocytes # 1.3 H Monocytes % 8.9 Neutrophils # 12.5 H Neutrophils % 84.6 H Nucleated Red Blood Cells # 0.3 H Nucleated Red Blood Cells % 2.0 H Platelet Count 163 Red Blood Count 4.73 Red Cell Distribution Width 18.8 H Sodium Level 138 Total Bilirubin 0.4 Total Protein 4.9 #L Vancomycin Level Trough 17.8 White Blood Count 14.8 #H Arterial Blood HCO3 27.8 H Arterial Blood Base Excess 5.1 H Arterial Blood Oxygen Saturation 98.8 H Jaspal Test ACCEPTAB Arterial Blood Gas Puncture Site Right Radial Arterial Blood Carboxyhemoglobin 0.8 Arterial Blood Date Drawn 06/28/2016 7:50:23 AM Arterial Blood Methemoglobin 0.3 Arterial Blood pCO2 (Temp correct) 34.5 L Arterial Blood pH (Temp corrected) 7.524 H Arterial Blood pO2 (Temp corrected) 127.1 H Blood Gas A-a O2 Differential 46.3 H Blood Gas Actual Respiration Rate 18 Blood Gas Low PEEP Setting 5.0 Blood Gas Modality VENT - AC Blood Gas Notified Time 06/28/2016 8:30:03 AM Blood Gas Notified Whom JLD Blood Gas Respiration Rate 16.0 Blood Gas Specimen Source Blood arterial Blood Gas Temperature 37.0 Blood Gas Tidal Volume 550.0 FiO2 30.0 Oxyhemoglobin Percent 97.7 Total Hemoglobin 12.6 Test 06/28/16 09:20 HIV (1&2) Antibody NEGATIVE Medications Medications Current Medications Sodium Chloride (NS) 1,000 ml @ 40 mls/hr Q24H IV Last administered on at 14:01; Admin Dose 40 MLS/HR; Start 06/26/16 at 16:00 Ondansetron HCl (Zofran Inj) 4 mg Q6H PRN IV NAUSEA AND/OR VOMITING; Start at 12:00 Nitroglycerin (Nitroglycerin (Sl Tab) 0.4 Mg) 1 tab Q5M PRN SL CHEST PAIN; Start 06/26/16 at 12:00 Acetaminophen (Tylenol Supp) 650 mg Q4H PRN [place] PAIN LEVEL 1-3 OR FEVER; Start 06/26/16 at 12:00 Morphine Sulfate (morphine) 2 mg Q4H PRN IV PAIN LEVEL 7-10; Start 06/26/16 at 12:00 Lorazepam (Ativan) 1 mg Q2H PRN IV ANXIETY Last administered on 06/27/16at 08: 04; Admin Dose 1 MG; Start 06/26/16 at 12:00 Heparin Sodium (Porcine) 5000 unit 5,000 unit BID SC Last administered on 06/28at 08:31; Admin Dose 5,000 UNIT; Start 06/26/16 at 21:00 Cefepime HCl 50 ml @ 100 mls/hr Q12 IVPB Last administered on 06/28/16at 08:23 ; Admin Dose 100 MLS/HR; Start 06/26/16 at 15:00 Levofloxacin/ Dextrose (Levaquin 500mg/ D5W 100 ml (Pmx)) 100 ml @ 100 mls/hr Q24H IVPB Last administered on 06/28/16at 14:51; Admin Dose 100 MLS/HR; Start 06/26/16 at 15:00 Metoprolol Tartrate 12.5 mg 12.5 mg BID PO Last administered on 06/28/16at 08: 24; Admin Dose 12.5 MG; Start 06/26/16 at 21:00 Propofol (Diprivan) 100 ml @ 2.649 mls/ hr Q12H IV Last administered on at 10:23; Admin Dose 10.596 MLS/HR; Start 06/27/16 at 03:30 IV Flush 10 ml 10 ml PRN PRN IV IV PROTOCOL; Start 06/27/16 at 16:30 Pantoprazole 80 mg/Sodium Chloride 100 ml @ 10 mls/hr Q10H IV Last administered on 06/28/16at 09:37; Admin Dose 10 MLS/HR; Start 06/28/16 at 09:30 Vancomycin HCl/ Sodium Chloride (Vancocin/NS) 250 ml @ 83.333 mls/ hr Q24H IVPB ; Start 06/28/16 at 22:00 SEVERO STUBBS Jun 28, 2016 15:46
--- NOTE | 2016-06-28 17:01 | RADRPT ---
PROCEDURE: US bilateral lower extremity veins. CLINICAL INDICATION: Bilateral leg pain and swelling. TECHNIQUE: Multiple longitudinal and transverse images of the bilateral lower extremity veins were obtained with younger scale and color Doppler imaging. The common femoral vein, femoral vein, and popl iteal vein were evaluated. 2D grayscale measurements with compression sonography, color Doppler, and pulsed Doppler with augmentation. COMPARISON: No prior studies are available for comparison. FINDINGS: The bilateral common femoral, femoral and popliteal veins are normally compressible throughout. Col or flow demonstrates normal filling of the vessels. Normal waveforms are visualized and there is no rmal response to augmentation. IMPRESSION: 1. No evidence of deep vein thrombosis involving either lower extremity. RPTAT: QQ .Radu Schneider MD, MD Date Time Electronically viewed and signed by .Radu Schneider MD, on 06/28/2016 17:00 .R/
[2016-06-28] MEDS: BUMETANIDE 1 MG INJ IV SCH (17:53)
[2016-06-28] MEDS: SOD CHLORIDE 0.9% 1,000 ML IV SCH (17:53)
--- NOTE | 2016-06-28 17:58 | PN ---
DATE: 06/28/2016 SUBJECTIVE: The patient remains intubated, sedated, looks comfortable on the vent. VITAL SIGNS: Temperature 98.4, pulse 115, respirations 19, blood pressure 112/ 50. LABORATORY: WBC today 14.8, H and H 11.4 and 36, platelets 163, neutrophils 84.6. BUN 78, creatinine 1.78. DIAGNOSTICS: Chest x-ray revealed pulmonary vascular congestion with small bilateral pleural effusions, mild cardiomegaly. INDWELLINGS: Endotracheal tube, left upper extremity PICC line, NG tube, Merino. ANTIMICROBIALS: 1. Vancomycin. 2. Cefepime. 3. Levaquin. PHYSICAL EXAMINATION: GENERAL: This is a well-developed, well-nourished middle-aged white man who is intubated, sedated and in no distress. HEENT: Head atraumatic, normocephalic. Sclerae anicteric. Buccal mucosa dry. NECK: Supple, trachea midline. CHEST: Rise symmetrical. Breath sounds diminished to bases. HEART: S1, S2. ABDOMEN: Soft. Bowel tones present. EXTREMITIES: Bilateral lower extremities edema. ASSESSMENT: 1. Acute respiratory failure, multifactorial secondary to congestive heart failure and possible pneumonia. 2. Acute renal failure. 3. Endocarditis with repeat 2-D echo recently revealed aortic valve vegetation and possible ongoing mitral valve vegetation. The patient completed 6 weeks' antibiotics previously. 4. History also of alpha-hemolytic streptococcus septicemia back in 04/25/2016 secondary to endocarditis. 5. History of intravenous drug abuse. 6. History of pulmonary emboli. 7. Hepatitis C virus. PLAN: The patient remains stable, covered with broad spectrum antibiotics. We are going to send sputum cultures. So far, his blood and urine culture have been negative. Continue vent support per Pulmonary. Cardiology, nephrology and cardiothoracic surgery recommendations. Not a surgical candidate for valve replacement at present time. Dictated By: RAYMOND HER ACADEMIC GUIDANCE SPECIALIST for JULIO CESAR DURON/BRANDO Conf#: [id number] DID#: [id number] MTDD
[2016-06-28] MEDS: ACETAMINOPHEN 650 MG SUPP PR PRN (21:19)
[2016-06-28] MEDS: VANCOMYCIN 1.5 GM in SOD CHLORIDE 0.9% 250 ML IVPB SCH (22:22)
--- NOTE | 2016-06-28 22:33 | PN ---
Date/Time of Note Date/Time of Note DATE: 06/28/16 TIME: 22:32 Assessment/Plan Lines/Catheters IV [facility] Type (from [facility] PICC Line Merino in Place (from Nrs): Yes Assessment/Plan Chief Complaint/Hosp Course IMPRESSION: 1. Endocarditis involving aortic and mitral valve. 2. Aortic regurgitation. 3. Mitral regurgitation. 4. Cardiomyopathy with diminished ejection fraction. 5. Renal failure. 6. History of drug use. 7. Elevation of the transaminases. 8. Coagulopathy. RECOMMENDATIONS: This patient is not a candidate to undergo surgery at the present time; too high risk for surgical repair. Please continue antibiotics. Discussed with the nursing staff. Will discuss with the referring physicians. Problems: Subjective 24 Hr Interval Summary Constitutional: improved Pain Control: mild Exam/Review of Systems Vital Signs Vitals Vital Signs Date Time Temp Pulse Resp B/P Pulse Ox O2 Delivery O2 Flow Rate FiO2 06/28/16 20:00 115 06/28/16 18:00 20 113/54 95 Mechanical Ventilator 06/28/16 17:25 30 06/28/16 16:00 98.7 06/26/16 18:48 5.0 Intake and Output 06/27/16 06/27/16 06/28/16 15:00 23:00 07:00 Intake Total 363.572 ml 770.924 ml 574.627 ml Output Total 280 ml 700 ml 680 ml Balance 83.572 ml 70.924 ml -105.373 ml Exam Eyes: EOMI, nl conjunctiva, nl lids, nl sclera ENMT: mucosa pink and moist, nl external ears & nose, nl lips & teeth, nl nasal mucosa & septum Neck: non-tender, supple Respiratory: clear to auscultation, normal air movement Cardiovascular: nl pulses, regular rate and rhythm Results Result Diagram: 06/28/1652906/28/16529 KARI ZAMAN MD Jun 28, 2016 22:32
[2016-06-29] VITALS (68 sets, daily range): BP systolic 107–132; BP diastolic 45–99; PULSE 90–116; RESP 14–40
[2016-06-29] MEDS: PANTOPRAZOLE IV 80 MG in SOD CHLORIDE 0.9% 100 ML IV SCH ×2 (04:03→14:13)
[2016-06-29 05:11] LABS: EOSINOPHILS % 0.1 % (0.0-7.0); HEMATOCRIT 34.4 % (42.0-52.0); HEMOGLOBIN 10.8 g/dl (14.0-18.0); LYMPHOCYTES # 1.4 10^3/ul (0.8-2.9); LYMPHOCYTES % 7.2 % (15.0-51.0); MEAN CORPUSCULAR HEMOGLOBIN 23.6 pg (29.0-33.0); MEAN CORPUSCULAR HGB CONC 31.4 g/dl (32.0-37.0); MEAN PLATELET VOLUME 8.9 fl (7.4-10.4); MONOCYTE # 1.3 10^3/ul (0.3-0.9); MONOCYTES % 6.6 % (0.0-11.0); NEUTROPHIL # 16.5 10^3/ul (1.6-7.5); NEUTROPHILS % 86.1 % (39.0-77.0); PLATELET COUNT 140 10^3/UL (140-440); RED BLOOD COUNT 4.59 10^6/ul (4.70-6.10); UNCORRECTED WBC 19.1 10^3/ul (4.8-10.8); WHITE BLOOD COUNT 19.1 10^3/ul (4.8-10.8)
[2016-06-29 05:17] LABS: ALBUMIN 2.3 g/dl (3.3-4.9)
[2016-06-29 05:20] LABS: ALBUMIN/GLOBULIN RATIO 0.92; BILIRUBIN,INDIRECT 0.4 mg/dl (0-1.1); BILIRUBIN,TOTAL 0.4 mg/dl (0.2-1.3); CREATININE 1.59 mg/dl (0.61-1.24); TOTAL PROTEIN 4.8 g/dl (6.1-8.1)
[2016-06-29] MEDS: BUMETANIDE 1 MG INJ IV SCH (05:20)
[2016-06-29] MEDS: PROPOFOL 100 ML IV SCH (05:20)
[2016-06-29 05:21] LABS: CALCIUM 7.6 mg/dl (8.4-10.2)
[2016-06-29 05:28] LABS: CONDITION 1; LH ANALYZER COMMENTS 1
[2016-06-29 05:40] LABS: POTASSIUM 2.8 mmol/L (3.5-5.1)
[2016-06-29] MEDS: POTASSIUM CHLORIDE 250 ML IVPB SCH ×2 (08:03→11:22)
--- NOTE | 2016-06-29 08:22 | PN ---
Date/Time of Note Date/Time of Note DATE: 06/29/16 TIME: 08:19 Assessment/Plan VTE Prophylaxis VTE Prophylaxis Intervention: heparin Lines/Catheters IV Catheter Type (from Nrs): PICC Line Central line still needed: Yes Urinary Cath still in place: Yes Reason Cath still needed: urinary retention Assessment/Plan Assessment/Plan 36 yo unfortunate male with a past medical history of Bacterial Endocarditis finished 6 week course of IV antibiotics, Drug abuse, Nicotine abuse, Right popliteal thrombosis, PE on Eliquis, Microcytic anemia, CHF - diastolic, who came for worsening shortness of breath. 1. Shortness of breath - hypoxemic respiratory failure - multifactorial - heart failure acute on chronic - Vent dependent - intubated - f/u pulm recs - 2. Sepsis severe 2/2 to pneumonia - tachycardia/leukocytosis - HCAP - IV cefepime, levaquin, vanc - respiratory cultures, monitor trend - worsening - appreciate ID recs 3. CHF - diastolic dysfunction acute on chronic - EF recent shows 40%, D shaped left ventricle, consult cardiology, bumex drip 4. Hyponatremia - 2/2 fluid overload - appreciate nephrology consult 5. BESSIE - acute on chronic - 2/2 #2 - worsening - ATN with AIN component 6. Transaminitis - 2/2 to sepsis, or possible atypical pneumonia, monitor trend - improving 7. PE - heparin 8. Right popliteal thrombus - continue with heparin 9. Microcytic anemia - monitor H/H, transfuse if hgb < 8 g/dL 10. GI ppx - protonix 11. DVT ppx - heparin dispo - f/u recs, palliative care consult - will monitor functional status - overall prognosis is poor this critical care note took greater than 40 min to complete Subjective 24 Hr Interval Summary Free Text/Dictation Patient had no overnight events. Making good amount of urine as per nurse. Spoke to the nurse about the care plan. 15 minutes spent. Exam/Review of Systems Vital Signs Vitals Vital Signs Date Time Temp Pulse Resp B/P Pulse Ox O2 Delivery O2 Flow Rate FiO2 06/29/16 06:00 102 18 116/54 97 Mechanical Ventilator 06/29/16 05:43 30 06/29/16 04:00 98.5 06/26/16 18:48 5.0 Intake and Output 06/28/16 06/28/16 06/29/16 15:00 23:00 07:00 Intake Total 514.72 ml 516.27 ml 514.000 ml Output Total 605 ml 930 ml 1700 ml Balance -90.28 ml -413.73 ml -1186.000 ml Exam Gen Evelyn: sedated/intubated HEENT: NC/AT, ETT in place NECK: supple, no thyromegaly THORAX: symmetrical, no obvious deformities CV: S1S2, RRR, III/ systolic murmur best heard over mitral area - blowing type Lungs: Coarse breath sounds, scattered wheezing, bibasilar crackles Abd: soft, NT/ND, +BS, no rebound, no guarding, neg HSM : scrotal edema EXT: 2+ bilateral lower extremities edema, no ecchymosis, no clubbing, FROM, mild cyanosis noted at phalanges bilaterally lower extremities Neuro: cannot assess - intubated/sedated Psych: agitated Skin: see ext Results Result Diagram: 06/29/16 0345 06/29/16 0345 Results 24 hrs Laboratory Tests Test 06/28/16 09:20 06/29/16 03:45 HIV (1&2) Antibody NEGATIVE Alanine Aminotransferase (ALT/SGPT) 148 H Albumin 2.3 L Albumin/Globulin Ratio 0.92 Alkaline Phosphatase 56 Anion Gap 16 Aspartate Amino Transf (AST/SGOT) 72 H Basophils # 0.0 Basophils % 0.0 Blood Morphology Comment Blood Urea Nitrogen 65 H Calcium Level 7.6 L Carbon Dioxide Level 30 Chloride Level 101 Creatinine 1.59 H Direct Bilirubin 0.00 Eosinophils # 0.0 Eosinophils % 0.1 Globulin 2.50 Glucose Level 96 Hematocrit 34.4 L Hemoglobin 10.8 L Indirect Bilirubin 0.4 Lymphocytes # 1.4 Lymphocytes % 7.2 L Mean Corpuscular Hemoglobin 23.6 L Mean Corpuscular Hemoglobin Concent 31.4 L Mean Corpuscular Volume 75.0 L Mean Platelet Volume 8.9 Monocytes # 1.3 H Monocytes % 6.6 Neutrophils # 16.5 H Neutrophils % 86.1 H Nucleated Red Blood Cells # 0.0 Nucleated Red Blood Cells % 0.0 Platelet Count 140 Potassium Level 2.8 *L Red Blood Count 4.59 L Red Cell Distribution Width 18.0 H Sodium Level 144 Total Bilirubin 0.4 Total Protein 4.8 L White Blood Count 19.1 #H Medications Medications Current Medications Sodium Chloride (NS) 1,000 ml @ 40 mls/hr Q24H IV Last administered on 17:53; Admin Dose 40 MLS/HR; Start 06/26/16 at 16:00 Ondansetron HCl (Zofran Inj) 4 mg Q6H PRN IV NAUSEA AND/OR VOMITING; Start at 12:00 Nitroglycerin (Nitroglycerin (Sl Tab) 0.4 Mg) 1 tab Q5M PRN SL CHEST PAIN; Start 06/26/16 at 12:00 Acetaminophen (Tylenol Supp) 650 mg Q4H PRN [place] PAIN LEVEL 1-3 OR FEVER Last administered on 06/28/16 21:19; Admin Dose 650 MG; Start 06/26/16 at 12:00 Morphine Sulfate (morphine) 2 mg Q4H PRN IV PAIN LEVEL 7-10; Start 06/26/16 at 12:00 Lorazepam (Ativan) 1 mg Q2H PRN IV ANXIETY Last administered on 06/27/16 08: 04; Admin Dose 1 MG; Start 06/26/16 at 12:00 Heparin Sodium (Porcine) 5000 unit 5,000 unit BID SC Last administered on 06/28 21:18; Admin Dose 5,000 UNIT; Start 06/26/16 at 21:00 Cefepime HCl 50 ml @ 100 mls/hr Q12 IVPB Last administered on 06/28/16 21:08 ; Admin Dose 100 MLS/HR; Start 06/26/16 at 15:00 Levofloxacin/ Dextrose 100 ml @ 100 mls/hr Q24H IVPB Last administered on 14:51; Admin Dose 100 MLS/HR; Start 06/26/16 at 15:00 Propofol (Diprivan) 100 ml @ 2.649 mls/ hr Q12H IV Last administered on 05:20; Admin Dose 7.947 MLS/HR; Start 06/27/16 at 03:30 IV Flush 10 ml 10 ml PRN PRN IV IV PROTOCOL; Start 06/27/16 at 16:30 Pantoprazole 80 mg/Sodium Chloride 100 ml @ 10 mls/hr Q10H IV Last administered on 06/29/16 04:03; Admin Dose 10 MLS/HR; Start 06/28/16 at 09:30 Vancomycin HCl/ Sodium Chloride (Vancocin/NS) 250 ml @ 83.333 mls/ hr Q24H IVPB Last administered on 06/28/16at 22:22; Admin Dose 83.333 MLS/HR; Start at 22:00 Metoprolol Tartrate 25 mg 25 mg BID PO Last administered on 06/28/16at 21:11; Admin Dose 25 MG; Start 06/28/16 at 21:00 Potassium Chloride (KCl 40 MEQ/250 ML NS) 250 ml @ 62.5 mls/hr Q4H IVPB Last administered on 06/29/16at 08:03; Admin Dose 62.5 MLS/HR; Start 06/29/16 at 06: 00; Stop 06/29/16 at 13:59 JC BROUSSARD MD Jun 29, 2016 08:22
[2016-06-29] MEDS: CEFEPIME 1GM/50 ML (PMX) 50 ML IVPB SCH ×2 (08:26→20:27)
[2016-06-29] MEDS: METOPROLOL 25 MG TAB PO SCH ×2 (08:27→21:34)
[2016-06-29] MEDS: HEPARIN 5,000 UNIT/0.5 ML SYG SC SCH ×2 (08:36→22:09)
--- NOTE | 2016-06-29 09:11 | RADRPT ---
PROCEDURE: XR Chest. CLINICAL INDICATION: Shortness of breath. TECHNIQUE: Single frontal view. COMPARISON: 06/28/2016. FINDINGS: The endotracheal tube, nasogastric tube, and left arm PICC line remain in satisfactory position. Th ere is pulmonary edema and bibasilar atelectasis, unchanged. The heart is enlarged. There are moderate bilateral pleural effusions with right larger than left. There is no pneumothorax. IMPRESSION: 1. No change from 06/28/2016. RPTAT: QQ .Radu Schneider MD, MD Date Time Electronically viewed and signed by .Radu Schneider MD, MD on 06/29/2016 09:11 .R/
--- NOTE | 2016-06-29 09:31 | CONS ---
Date/Time of Note Date/Time of Note DATE: 06/29/16 TIME: 09:24 Assessment/Plan Assessment/Plan Chief Complaint/Hosp Course 1. acute renal failure superimposed on CKD . His renal function is stable . He is non oliguric and his urine output is increasing on a Bumex .Will hold Bumex until potassium is corrected . 2. 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 CT surgery says that he is not a surgical candidate at this time . I did discuss this with the patients mother . 3. CHF 4. hepatitis C with elevated liver enzymes 5. respiratory failure , ventilator dependent 6. hypokalemia , potassium is being corrected Problems: Consultation Date/Type/Reason Admit Date/Time Jun 26, 2016 at 11:39 Type of Consultation: renal Referring Provider: JC BROUSSARD MD 24 HR Interval Summary Free Text/Dictation Patient is in the ICU , intubated , unresponsive on sedation Subjective hx not possible: pt non-verbal Exam/Review of Systems Vital Signs Vitals Vital Signs Date Time Temp Pulse Resp B/P Pulse Ox O2 Delivery O2 Flow Rate FiO2 06/29/16 06:00 102 18 116/54 97 Mechanical Ventilator 06/29/16 05:43 30 06/29/16 04:00 98.5 06/26/16 18:48 5.0 Intake and Output 06/28/16 06/28/16 06/29/16 15:00 23:00 07:00 Intake Total 514.72 ml 516.27 ml 514.000 ml Output Total 605 ml 930 ml 1700 ml Balance -90.28 ml -413.73 ml -1186.000 ml Exam Constitutional: non-verbal Respiratory: diminished breath sounds Cardiovascular: regular rate and rhythm, systolic murmur Gastrointestinal: soft Extremities: edema Results Result Diagram: 06/29/16 0345 06/29/16 0345 Results 24 hrs Laboratory Tests Test 06/29/16 03:45 Alanine Aminotransferase (ALT/SGPT) 148 H Albumin 2.3 L Albumin/Globulin Ratio 0.92 Alkaline Phosphatase 56 Anion Gap 16 Aspartate Amino Transf (AST/SGOT) 72 H Basophils # 0.0 Basophils % 0.0 Blood Morphology Comment Blood Urea Nitrogen 65 H Calcium Level 7.6 L Carbon Dioxide Level 30 Chloride Level 101 Creatinine 1.59 H Direct Bilirubin 0.00 Eosinophils # 0.0 Eosinophils % 0.1 Globulin 2.50 Glucose Level 96 Hematocrit 34.4 L Hemoglobin 10.8 L Indirect Bilirubin 0.4 Lymphocytes # 1.4 Lymphocytes % 7.2 L Mean Corpuscular Hemoglobin 23.6 L Mean Corpuscular Hemoglobin Concent 31.4 L Mean Corpuscular Volume 75.0 L Mean Platelet Volume 8.9 Monocytes # 1.3 H Monocytes % 6.6 Neutrophils # 16.5 H Neutrophils % 86.1 H Nucleated Red Blood Cells # 0.0 Nucleated Red Blood Cells % 0.0 Platelet Count 140 Potassium Level 2.8 *L Red Blood Count 4.59 L Red Cell Distribution Width 18.0 H Sodium Level 144 Total Bilirubin 0.4 Total Protein 4.8 L White Blood Count 19.1 #H Medications Medications Current Medications Sodium Chloride (NS) 1,000 ml @ 40 mls/hr Q24H IV Last administered on at 17:53; Admin Dose 40 MLS/HR; Start 06/26/16 at 16:00 Ondansetron HCl (Zofran Inj) 4 mg Q6H PRN IV NAUSEA AND/OR VOMITING; Start at 12:00 Nitroglycerin (Nitroglycerin (Sl Tab) 0.4 Mg) 1 tab Q5M PRN SL CHEST PAIN; Start 06/26/16 at 12:00 Acetaminophen (Tylenol Supp) 650 mg Q4H PRN [place] PAIN LEVEL 1-3 OR FEVER Last administered on 06/28/16at 21:19; Admin Dose 650 MG; Start 06/26/16 at 12:00 Morphine Sulfate (morphine) 2 mg Q4H PRN IV PAIN LEVEL 7-10; Start 06/26/16 at 12:00 Lorazepam (Ativan) 1 mg Q2H PRN IV ANXIETY Last administered on 06/27/16at 08: 04; Admin Dose 1 MG; Start 06/26/16 at 12:00 Heparin Sodium (Porcine) 5000 unit 5,000 unit BID SC Last administered on 06/29at 08:36; Admin Dose 5,000 UNIT; Start 06/26/16 at 21:00 Cefepime HCl 50 ml @ 100 mls/hr Q12 IVPB Last administered on 06/29/16at 08:26 ; Admin Dose 100 MLS/HR; Start 06/26/16 at 15:00 Levofloxacin/ Dextrose 100 ml @ 100 mls/hr Q24H IVPB Last administered on at 14:51; Admin Dose 100 MLS/HR; Start 06/26/16 at 15:00 Propofol (Diprivan) 100 ml @ 2.649 mls/ hr Q12H IV Last administered on at 05:20; Admin Dose 7.947 MLS/HR; Start 06/27/16 at 03:30 IV Flush 10 ml 10 ml PRN PRN IV IV PROTOCOL; Start 06/27/16 at 16:30 Pantoprazole 80 mg/Sodium Chloride 100 ml @ 10 mls/hr Q10H IV Last administered on 06/29/16at 04:03; Admin Dose 10 MLS/HR; Start 06/28/16 at 09:30 Vancomycin HCl/ Sodium Chloride (Vancocin/NS) 250 ml @ 83.333 mls/ hr Q24H IVPB Last administered on 06/28/16at 22:22; Admin Dose 83.333 MLS/HR; Start at 22:00 Metoprolol Tartrate 25 mg 25 mg BID PO Last administered on 06/29/16at 08:27; Admin Dose 25 MG; Start 06/28/16 at 21:00 Potassium Chloride (KCl 40 MEQ/250 ML NS) 250 ml @ 62.5 mls/hr Q4H IVPB Last administered on 06/29/16at 08:03; Admin Dose 62.5 MLS/HR; Start 06/29/16 at 06: 00; Stop 06/29/16 at 13:59 CRESENCIO CASTILLO MD Jun 29, 2016 09:31
--- NOTE | 2016-06-29 10:19 | CONS ---
Date/Time of Note Date/Time of Note DATE: 06/29/16 TIME: 10:19 Consult Date/Type/Reason Admit Date/Time Jun 26, 2016 at 11:39 Type of Consultation: pulmonary Ordering Provider: JC BROUSSARD MD Subjective Patient stable on mechanical ventilation remains intubated and sedated Objective Vital Signs Date Time Temp Pulse Resp B/P Pulse Ox O2 Delivery O2 Flow Rate FiO2 06/29/16 06:00 102 18 116/54 97 Mechanical Ventilator 06/29/16 05:43 30 06/29/16 04:00 98.5 06/26/16 18:48 5.0 Intake and Output 06/28/16 06/28/16 06/29/16 15:00 23:00 07:00 Intake Total 514.72 ml 516.27 ml 514.000 ml Output Total 605 ml 930 ml 1850 ml Balance -90.28 ml -413.73 ml -1336.000 ml PHYSICAL EXAMINATION: GENERAL: A chronically ill-appearing gentleman, intubated on mechanical ventilation, comfortable at rest, no acute distress. VITAL SIGNS: As above NECK: Supple. No JVD or lymphadenopathy. CARDIAC: S1, S2, no added sounds or murmurs. CHEST: Diminished air entry bilaterally. ABDOMEN: Soft, nontender. No guarding or rebound. EXTREMITIES: No cyanosis, clubbing, edema. NEUROLOGIC: Unable to assess. Results/Medications Result Diagram: 06/29/16 0345 06/29/16 0345 Results 24 hrs Laboratory Tests Test 06/29/16 03:45 Alanine Aminotransferase (ALT/SGPT) 148 H Albumin 2.3 L Albumin/Globulin Ratio 0.92 Alkaline Phosphatase 56 Anion Gap 16 Aspartate Amino Transf (AST/SGOT) 72 H Basophils # 0.0 Basophils % 0.0 Blood Morphology Comment Blood Urea Nitrogen 65 H Calcium Level 7.6 L Carbon Dioxide Level 30 Chloride Level 101 Creatinine 1.59 H Direct Bilirubin 0.00 Eosinophils # 0.0 Eosinophils % 0.1 Globulin 2.50 Glucose Level 96 Hematocrit 34.4 L Hemoglobin 10.8 L Indirect Bilirubin 0.4 Lymphocytes # 1.4 Lymphocytes % 7.2 L Mean Corpuscular Hemoglobin 23.6 L Mean Corpuscular Hemoglobin Concent 31.4 L Mean Corpuscular Volume 75.0 L Mean Platelet Volume 8.9 Monocytes # 1.3 H Monocytes % 6.6 Neutrophils # 16.5 H Neutrophils % 86.1 H Nucleated Red Blood Cells # 0.0 Nucleated Red Blood Cells % 0.0 Platelet Count 140 Potassium Level 2.8 *L Red Blood Count 4.59 L Red Cell Distribution Width 18.0 H Sodium Level 144 Total Bilirubin 0.4 Total Protein 4.8 L White Blood Count 19.1 #H Medications Current Medications Ondansetron HCl (Zofran Inj) 4 mg Q6H PRN IV NAUSEA AND/OR VOMITING; Start at 12:00 Nitroglycerin (Nitroglycerin (Sl Tab) 0.4 Mg) 1 tab Q5M PRN SL CHEST PAIN; Start 06/26/16 at 12:00 Acetaminophen (Tylenol Supp) 650 mg Q4H PRN [place] PAIN LEVEL 1-3 OR FEVER Last administered on 06/28/16at 21:19; Admin Dose 650 MG; Start 06/26/16 at 12:00 Morphine Sulfate (morphine) 2 mg Q4H PRN IV PAIN LEVEL 7-10; Start 06/26/16 at 12:00 Lorazepam (Ativan) 1 mg Q2H PRN IV ANXIETY Last administered on 06/27/16at 08: 04; Admin Dose 1 MG; Start 06/26/16 at 12:00 Heparin Sodium (Porcine) 5000 unit 5,000 unit BID SC Last administered on 06/29at 08:36; Admin Dose 5,000 UNIT; Start 06/26/16 at 21:00 Cefepime HCl 50 ml @ 100 mls/hr Q12 IVPB Last administered on 06/29/16at 08:26 ; Admin Dose 100 MLS/HR; Start 06/26/16 at 15:00 Levofloxacin/ Dextrose 100 ml @ 100 mls/hr Q24H IVPB Last administered on at 14:51; Admin Dose 100 MLS/HR; Start 06/26/16 at 15:00 Propofol (Diprivan) 100 ml @ 2.649 mls/ hr Q12H IV Last administered on at 05:20; Admin Dose 7.947 MLS/HR; Start 06/27/16 at 03:30 IV Flush 10 ml 10 ml PRN PRN IV IV PROTOCOL; Start 06/27/16 at 16:30 Pantoprazole 80 mg/Sodium Chloride 100 ml @ 10 mls/hr Q10H IV Last administered on 06/29/16at 04:03; Admin Dose 10 MLS/HR; Start 06/28/16 at 09:30 Vancomycin HCl/ Sodium Chloride (Vancocin/NS) 250 ml @ 83.333 mls/ hr Q24H IVPB Last administered on 06/28/16at 22:22; Admin Dose 83.333 MLS/HR; Start at 22:00 Metoprolol Tartrate 25 mg 25 mg BID PO Last administered on 06/29/16at 08:27; Admin Dose 25 MG; Start 06/28/16 at 21:00 Potassium Chloride (KCl 40 MEQ/250 ML NS) 250 ml @ 62.5 mls/hr Q4H IVPB Last administered on 06/29/16at 08:03; Admin Dose 62.5 MLS/HR; Start 06/29/16 at 06: 00; Stop 06/29/16 at 13:59 Assessment/Plan Chief Complaint/Hosp Course IMPRESSION AND PLAN: 1. Hypoxemic respiratory failure. Secondary to congestive cardiac failure 2. Possible component of community-acquired pneumonia. 3. Bacterial endocarditis. Currently nonsurgical candidate 4. History of intravenous drug abuse. 5. History of pulmonary embolus. 6. Renal insufficiency The patient will require: 1. Continued mechanical ventilation. CPAP trial this morning 2. Diuresis if tolerated. Continues Bumex 3. Broad-spectrum antibiotics. 4. DVT and GI prophylaxis. 5. May require thoracentesis if pleural effusions continued to increase in size Problems: ASAD DAS MD, [facility] Jun 29, 2016 10:19
[2016-06-29] MEDS: LEVOFLOXACIN 500MG/D5W (PMX) 100 ML IVPB SCH (14:13)
--- NOTE | 2016-06-29 14:19 | PN ---
Date/Time of Note Date/Time of Note DATE: 06/29/16 TIME: 14:19 Assessment/Plan Lines/Catheters IV Catheter Type (from Nrs): PICC Line Merino in Place (from Nrs): Yes Assessment/Plan Chief Complaint/Hosp Course IMPRESSION: 1. Endocarditis involving aortic and mitral valve. 2. Aortic regurgitation. 3. Mitral regurgitation. 4. Cardiomyopathy with diminished ejection fraction. 5. Renal failure. 6. History of drug use. 7. Elevation of the transaminases. 8. Coagulopathy. RECOMMENDATIONS: This patient is not a candidate to undergo surgery at the present time; too high risk for surgical repair. Please continue antibiotics. Discussed with the nursing staff. Will discuss with the referring physicians. Problems: Subjective 24 Hr Interval Summary Constitutional: improved Pain Control: mild Exam/Review of Systems Vital Signs Vitals Vital Signs Date Time Temp Pulse Resp B/P Pulse Ox O2 Delivery O2 Flow Rate FiO2 06/29/16 12:00 108 06/29/16 09:30 17 116/54 96 06/29/16 08:00 30 06/29/16 08:00 Mechanical Ventilator 06/29/16 07:30 98.4 06/26/16 18:48 5.0 Intake and Output 06/28/16 06/28/16 06/29/16 15:00 23:00 07:00 Intake Total 514.72 ml 516.27 ml 514.000 ml Output Total 605 ml 930 ml 1850 ml Balance -90.28 ml -413.73 ml -1336.000 ml Exam Neck: non-tender, supple Respiratory: clear to auscultation, normal air movement Cardiovascular: nl pulses, regular rate and rhythm Gastrointestinal: nl liver, spleen, non-tender, soft Results Result Diagram: 06/29/16 0345 06/29/16 0345 KARI ZAMAN MD Jun 29, 2016 14:19
[2016-06-29] MEDS ORDERED: FENTAnyl 1,000 MCG in DEXTROSE 5% 80 ML IV SCH (15:00)
--- NOTE | 2016-06-29 15:12 | CONS ---
Date/Time of Note Date/Time of Note DATE: 06/29/16 TIME: 15:07 Assessment/Plan Assessment/Plan Chief Complaint/Hosp Course IMPRESSION: 1. Congestive heart failure exacerbation, systolic, acute on chronic with last known EF approximately 40% by echo May 2016. 2. Aortic regurgitation, moderate to severe with possible ongoing vegetation by most recent echo May 2016. 3. Mitral regurgitation, moderate to severe. 4. History of recent endocarditis status post 6-week course of antibiotics. 5. Cardiomyopathy with decreased left ventricular ejection fraction last approximately 40% by echo 06/14/2016. 6. Coagulopathy. 7. Renal failure. 8. Hypokalemia 9. Increased LFTs. 10. Increased BNP. 11. Leukocytosis. 12. Mild anemia. 13.Resp failure s/p intubation 14. s/p Code blue Recc: -Tele -Replete KCL -Bumex diuresis held due to hypokalemia -Low dose BB as tolerated only -Per CT surgery not a candidate for valve replacement at this time due to high risk. Would attempt transfer to tertiary care center again as possible -F/U blood cultures -Continue abx's Problems: Consultation Date/Type/Reason Admit Date/Time Jun 26, 2016 at 11:39 Initial Consult Date 06/27/2016 Type of Consultation: Cardiology Reason for Consultation CHF/AR/MR Referring Provider: JC BROUSSARD MD Exam/Review of Systems Vital Signs Vitals Vital Signs Date Time Temp Pulse Resp B/P Pulse Ox O2 Delivery O2 Flow Rate FiO2 06/29/16 14:00 112 18 122/56 96 Mechanical Ventilator 06/29/16 12:00 98.5 06/29/16 12:00 30 06/26/16 18:48 5.0 Intake and Output 06/28/16 06/28/16 06/29/16 15:00 23:00 07:00 Intake Total 514.72 ml 516.27 ml 514.000 ml Output Total 605 ml 930 ml 1850 ml Balance -90.28 ml -413.73 ml -1336.000 ml Exam Review of Systems: CONSTITUTIONAL: No fevers, chills. PULMONARY: intubated CARDIOVASCULAR: No chest pain/palpitations GASTROINTESTINAL: No nausea/vomiting. GENITOURINARY: No hematuria/dysuria. MUSCULOSKELETAL: No myagias/arthalgias. PSYCHIATRIC: The patient denies depression. NEUROLOGIC: sedated Constitutional: alert Psych: no complaints Head: normocephalic ENMT: mucosa pink and moist Neck: jvd (10 cm water), supple Respiratory: diminished breath sounds (at bases/B) Cardiovascular: regular rate and rhythm Gastrointestinal: non-tender, soft Musculoskeletal: muscle tone (normal) Extremities: pitting pedal edema (Bilateral) Neurological: other (sedated) Results Result Diagram: 06/29/16 0345 06/29/16 0345 Results 24 hrs Laboratory Tests Test 06/29/16 03:45 Alanine Aminotransferase (ALT/SGPT) 148 H Albumin 2.3 L Albumin/Globulin Ratio 0.92 Alkaline Phosphatase 56 Anion Gap 16 Aspartate Amino Transf (AST/SGOT) 72 H Basophils # 0.0 Basophils % 0.0 Blood Morphology Comment Blood Urea Nitrogen 65 H Calcium Level 7.6 L Carbon Dioxide Level 30 Chloride Level 101 Creatinine 1.59 H Direct Bilirubin 0.00 Eosinophils # 0.0 Eosinophils % 0.1 Globulin 2.50 Glucose Level 96 Hematocrit 34.4 L Hemoglobin 10.8 L Indirect Bilirubin 0.4 Lymphocytes # 1.4 Lymphocytes % 7.2 L Mean Corpuscular Hemoglobin 23.6 L Mean Corpuscular Hemoglobin Concent 31.4 L Mean Corpuscular Volume 75.0 L Mean Platelet Volume 8.9 Monocytes # 1.3 H Monocytes % 6.6 Neutrophils # 16.5 H Neutrophils % 86.1 H Nucleated Red Blood Cells # 0.0 Nucleated Red Blood Cells % 0.0 Platelet Count 140 Potassium Level 2.8 *L Red Blood Count 4.59 L Red Cell Distribution Width 18.0 H Sodium Level 144 Total Bilirubin 0.4 Total Protein 4.8 L White Blood Count 19.1 #H Medications Medications Current Medications Ondansetron HCl (Zofran Inj) 4 mg Q6H PRN IV NAUSEA AND/OR VOMITING; Start at 12:00 Nitroglycerin (Nitroglycerin (Sl Tab) 0.4 Mg) 1 tab Q5M PRN SL CHEST PAIN; Start 06/26/16 at 12:00 Acetaminophen (Tylenol Supp) 650 mg Q4H PRN [place] PAIN LEVEL 1-3 OR FEVER Last administered on 06/28/16at 21:19; Admin Dose 650 MG; Start 06/26/16 at 12:00 Morphine Sulfate (morphine) 2 mg Q4H PRN IV PAIN LEVEL 7-10; Start 06/26/16 at 12:00 Lorazepam (Ativan) 1 mg Q2H PRN IV ANXIETY Last administered on 06/27/16 08: 04; Admin Dose 1 MG; Start 06/26/16 at 12:00 Heparin Sodium (Porcine) 5000 unit 5,000 unit BID SC Last administered on 06/29 08:36; Admin Dose 5,000 UNIT; Start 06/26/16 at 21:00 Cefepime HCl 50 ml @ 100 mls/hr Q12 IVPB Last administered on 06/29/16 08:26 ; Admin Dose 100 MLS/HR; Start 06/26/16 at 15:00 Levofloxacin/ Dextrose 100 ml @ 100 mls/hr Q24H IVPB Last administered on 14:13; Admin Dose 100 MLS/HR; Start 06/26/16 at 15:00 Propofol (Diprivan) 100 ml @ 2.649 mls/ hr Q12H IV Last administered on 05:20; Admin Dose 7.947 MLS/HR; Start 06/27/16 at 03:30 IV Flush 10 ml 10 ml PRN PRN IV IV PROTOCOL; Start 06/27/16 at 16:30 Pantoprazole 80 mg/Sodium Chloride 100 ml @ 10 mls/hr Q10H IV Last administered on 06/29/16 14:13; Admin Dose 10 MLS/HR; Start 06/28/16 at 09:30 Vancomycin HCl/ Sodium Chloride (Vancocin/NS) 250 ml @ 83.333 mls/ hr Q24H IVPB Last administered on 06/28/16 22:22; Admin Dose 83.333 MLS/HR; Start at 22:00 Metoprolol Tartrate (Lopressor) 25 mg BID PO Last administered on 06/29/16 08 :27; Admin Dose 25 MG; Start 06/28/16 at 21:00 SEVERO STUBBS Jun 29, 2016 15:12
--- NOTE | 2016-06-29 15:29 | PN ---
DATE: 06/29/2016 INFECTIOUS DISEASE PROGRESS NOTE SUBJECTIVE: No acute events overnight. The patient remains intubated and sedated. He spiked a feve r yesterday of 101.3, current be afebrile. The patient also failed weaning trial this morning. VITAL SIGNS: At this moment temperature 98.5, pulse 112, respirations 18, blood pressure 122/56, sa turation 96% on vent. LABORATORY DATA: WBC 19.1, H and H 10.8, sodium 34.4, platelets 140, neutrophils 86.1, no bands. B UN 65, creatinine 1.59. MICROBIOLOGY: Blood and urine cultures remain negative. Sputum culture pending. DIAGNOSTICS: Chest x-ray this morning revealed pulmonary edema with bibasilar atelectasis that is u nchanged. INDWELLINGS: Endotracheal tube, NG tube, PICC line right upper extremity placed on June 27. ANTIMICROBIALS: Vancomycin, cefepime and Levaquin. PHYSICAL EXAMINATION: GENERAL: This is a well-nourished, well-developed, middle-aged white man who is lying comfortably i n bed. HEENT: Head atraumatic, normocephalic. Sclerae anicteric. Buccal mucosa dry. NECK: Supple, trachea midline. CHEST: Rise symmetrical. Breath sounds diminished to bases. HEART: S1, S2. ABDOMEN: Soft. Bowel tones hypoactive. EXTREMITIES: Bilateral edema. ASSESSMENT: 1. Acute hypoxemic respiratory failure secondary to congestive heart failure exacerbation. 2. Possible aspiration pneumonia versus community-acquired pneumonia. 3. Aortic and mitral valve vegetations with a history of alpha hemolytic streptococcus septicemia i n March 2016. 4. History of pulmonary emboli. 5. History of IV drug abuse. 6. Acute renal Note mind. 7. Anemia. PLAN: The patient remains hemodynamically stable, covered with broad spectrum antibiotics, pending sputum cultures. We are going to reculture him if he spikes a fever of 101. Follow chest x-ray. F akbar recommendations of consultants. The patient is not a surgical candidate for valve replacement at present time. Dictated By: RAYMOND HER UPPER LEATHER CUTTER for JULIO CESAR DURON/NTS Conf#: [id number] DID#: [id number]
[2016-06-29] MEDS ORDERED: DIGOXIN 500 MCG INJ IV ONE (16:00)
[2016-06-29] MEDS: FENTAnyl 1,000 MCG in DEXTROSE 5% 80 ML IV SCH (19:14)
[2016-06-29] MEDS: VANCOMYCIN 1.5 GM in SOD CHLORIDE 0.9% 250 ML IVPB SCH (21:57)
[2016-06-29] MEDS: LORAZEPAM 2 MG INJ IV PRN (23:37)
[2016-06-30] VITALS (57 sets, daily range): BP systolic 103–127; BP diastolic 45–59; PULSE 64–110; RESP 14–29
[2016-06-30] MEDS: PANTOPRAZOLE IV 80 MG in SOD CHLORIDE 0.9% 100 ML IV SCH ×3 (01:15→21:56)
[2016-06-30 04:57] LABS: BASOPHILS % 0.2 % (0.0-2.0); EOSINOPHILS % 0.1 % (0.0-7.0); HEMATOCRIT 36.1 % (42.0-52.0); HEMOGLOBIN 11.1 g/dl (14.0-18.0); LYMPHOCYTES # 1.7 10^3/ul (0.8-2.9); LYMPHOCYTES % 11.6 % (15.0-51.0); MEAN CORPUSCULAR HEMOGLOBIN 23.3 pg (29.0-33.0); MEAN CORPUSCULAR HGB CONC 30.9 g/dl (32.0-37.0); MEAN CORPUSCULAR VOLUME 75.4 fl (82.0-101.0); MEAN PLATELET VOLUME 8.4 fl (7.4-10.4); NEUTROPHIL # 11.7 10^3/ul (1.6-7.5); NEUTROPHILS % 81.1 % (39.0-77.0); PLATELET COUNT 136 10^3/UL (140-440); RED BLOOD COUNT 4.78 10^6/ul (4.70-6.10); RED CELL DISTRIBUTION WIDTH 18.5 % (11.5-14.5); UNCORRECTED WBC 14.4 10^3/ul (4.8-10.8); WHITE BLOOD COUNT 14.4 10^3/ul (4.8-10.8)
[2016-06-30 05:01] LABS: CONDITION 1; LH ANALYZER COMMENTS 1; NUCLEATED RED BLOOD CELLS # 0.3 10^3/ul (0.0-0.0)
[2016-06-30 05:34] LABS: ALBUMIN 2.2 g/dl (3.3-4.9)
[2016-06-30 05:35] LABS: POTASSIUM 3.6 mmol/L (3.5-5.1)
[2016-06-30 05:36] LABS: CREATININE 1.49 mg/dl (0.61-1.24)
[2016-06-30 05:37] LABS: ALBUMIN/GLOBULIN RATIO 0.81; BILIRUBIN,INDIRECT 0.6 mg/dl (0-1.1); BILIRUBIN,TOTAL 0.6 mg/dl (0.2-1.3); TOTAL PROTEIN 4.9 g/dl (6.1-8.1)
[2016-06-30 05:38] LABS: CALCIUM 7.8 mg/dl (8.4-10.2)
[2016-06-30 05:48] LABS: PHOSPHORUS 3.4 mg/dl (2.5-4.9)
--- NOTE | 2016-06-30 08:25 | PN ---
Date/Time of Note Date/Time of Note DATE: 06/30/16 TIME: 08:22 Assessment/Plan VTE Prophylaxis VTE Prophylaxis Intervention: heparin Lines/Catheters IV Catheter Type (from Nrs): Saline Lock Urinary Cath still in place: Yes Reason Cath still needed: terminal illness/intractable pain Assessment/Plan Assessment/Plan 36 yo unfortunate male with a past medical history of Bacterial Endocarditis finished 6 week course of IV antibiotics, Drug abuse, Nicotine abuse, Right popliteal thrombosis, PE on Eliquis, Microcytic anemia, CHF - diastolic, who came for worsening shortness of breath. 1. Shortness of breath - hypoxemic respiratory failure - multifactorial - heart failure acute on chronic - Vent dependent - intubated - f/u pulm recs - ?trach - less likely to happen 2. Sepsis severe 2/2 to pneumonia - tachycardia/leukocytosis - HCAP - IV cefepime, levaquin, vanc - respiratory cultures, monitor trend - improving - appreciate ID recs 3. CHF - diastolic dysfunction acute on chronic - EF recent shows 40%, D shaped left ventricle, consult cardiology, bumex drip as per renal 4. Hyponatremia - 2/2 fluid overload - appreciate nephrology consult - improving 5. BESSIE - acute on chronic - 2/2 #2 - worsening - ATN with AIN component - improving 6. Transaminitis - 2/2 to sepsis, or possible atypical pneumonia, monitor trend - improving 7. PE - heparin 8. Right popliteal thrombus - continue with heparin 9. Microcytic anemia - monitor H/H, transfuse if hgb < 8 g/dL 10. GI ppx - protonix 11. DVT ppx - heparin dispo - f/u recs, palliative care consult - will monitor functional status - overall prognosis is poor - DNR/DNI - possible conversion to comfort care measures if deteriorating condition this critical care note took greater than 40 min to complete Subjective 24 Hr Interval Summary Free Text/Dictation Patient had no overnight events. Spoke to the nurse about the care plan. awaiting families overall decision. 15 minutes spent. Exam/Review of Systems Vital Signs Vitals Vital Signs Date Time Temp Pulse Resp B/P Pulse Ox O2 Delivery O2 Flow Rate FiO2 06/30/16 07:00 95 16 112/56 100 06/30/16 05:23 30 06/30/16 04:00 98.1 Mechanical Ventilator 06/26/16 18:48 5.0 Intake and Output 06/29/16 06/29/16 06/30/16 15:00 23:00 07:00 Intake Total 660.091 ml 420.538 ml 189 ml Output Total 860 ml 1300 ml 425 ml Balance -199.909 ml -879.462 ml -236 ml Exam Gen Evelyn: sedated/intubated HEENT: NC/AT, ETT in place NECK: supple, no thyromegaly THORAX: symmetrical, no obvious deformities CV: S1S2, RRR, III/ systolic murmur best heard over mitral area - blowing type Lungs: Coarse breath sounds, scattered wheezing, bibasilar crackles Abd: soft, NT/ND, +BS, no rebound, no guarding, neg HSM : scrotal edema, with some skin sloughing noted EXT: 2+ bilateral lower extremities edema, no ecchymosis, no clubbing, FROM, mild cyanosis noted at phalanges bilaterally lower extremities Neuro: cannot assess - intubated/sedated Psych: agitated Skin: see ext Results Result Diagram: 06/30/16 0430 06/30/16 0430 Results 24 hrs Laboratory Tests Test 06/29/16 16:04 06/30/16 04:30 Potassium Level 3.8 3.6 Alanine Aminotransferase (ALT/SGPT) 120 H Albumin 2.2 L Albumin/Globulin Ratio 0.81 Alkaline Phosphatase 52 Anion Gap 16 Aspartate Amino Transf (AST/SGOT) 60 H Basophils # 0.0 Basophils % 0.2 Blood Morphology Comment Blood Urea Nitrogen 56 H Calcium Level 7.8 L Carbon Dioxide Level 30 Chloride Level 106 Creatinine 1.49 H Direct Bilirubin 0.00 Eosinophils # 0.0 Eosinophils % 0.1 Globulin 2.70 Glucose Level 98 Hematocrit 36.1 L Hemoglobin 11.1 L Indirect Bilirubin 0.6 Lymphocytes # 1.7 Lymphocytes % 11.6 L Magnesium Level 2.0 Mean Corpuscular Hemoglobin 23.3 L Mean Corpuscular Hemoglobin Concent 30.9 L Mean Corpuscular Volume 75.4 L Mean Platelet Volume 8.4 Monocytes # 1.0 H Monocytes % 7.0 Neutrophils # 11.7 H Neutrophils % 81.1 H Nucleated Red Blood Cells # 0.3 H Nucleated Red Blood Cells % 2.0 H Phosphorus Level 3.4 Platelet Count 136 L Red Blood Count 4.78 Red Cell Distribution Width 18.5 H Sodium Level 148 H Total Bilirubin 0.6 Total Protein 4.9 L White Blood Count 14.4 #H Medications Medications Current Medications Ondansetron HCl (Zofran Inj) 4 mg Q6H PRN IV NAUSEA AND/OR VOMITING; Start at 12:00 Nitroglycerin (Nitroglycerin (Sl Tab) 0.4 Mg) 1 tab Q5M PRN SL CHEST PAIN; Start 06/26/16 at 12:00 Acetaminophen (Tylenol Supp) 650 mg Q4H PRN [place] PAIN LEVEL 1-3 OR FEVER Last administered on 06/28/16at 21:19; Admin Dose 650 MG; Start 06/26/16 at 12:00 Morphine Sulfate (morphine) 2 mg Q4H PRN IV PAIN LEVEL 7-10; Start 06/26/16 at 12:00 Lorazepam (Ativan) 1 mg Q2H PRN IV ANXIETY Last administered on 06/29/16 23: 37; Admin Dose 1 MG; Start 06/26/16 at 12:00 Heparin Sodium (Porcine) 5000 unit 5,000 unit BID SC Last administered on 06/29at 22:09; Admin Dose 5,000 UNIT; Start 06/26/16 at 21:00 Cefepime HCl 50 ml @ 100 mls/hr Q12 IVPB Last administered on 06/29/16at 20:27 ; Admin Dose 100 MLS/HR; Start 06/26/16 at 15:00 Levofloxacin/ Dextrose 100 ml @ 100 mls/hr Q24H IVPB Last administered on at 14:13; Admin Dose 100 MLS/HR; Start 06/26/16 at 15:00 Propofol (Diprivan) 100 ml @ 2.649 mls/ hr Q12H IV Last administered on at 05:20; Admin Dose 7.947 MLS/HR; Start 06/27/16 at 03:30 IV Flush 10 ml 10 ml PRN PRN IV IV PROTOCOL; Start 06/27/16 at 16:30 Pantoprazole 80 mg/Sodium Chloride 100 ml @ 10 mls/hr Q10H IV Last administered on 06/30/16at 01:15; Admin Dose 10 MLS/HR; Start 06/28/16 at 09:30 Vancomycin HCl/ Sodium Chloride (Vancocin/NS) 250 ml @ 83.333 mls/ hr Q24H IVPB Last administered on 06/29/16at 21:57; Admin Dose 83.333 MLS/HR; Start at 22:00 Metoprolol Tartrate 25 mg 25 mg BID PO Last administered on 06/29/16at 21:34; Admin Dose 25 MG; Start 06/28/16 at 21:00 Fentanyl/Dextrose (D5W) 100 ml @ 0 mls/hr TITRATE IV Last administered on 06/29at 19:14; Admin Dose 2.5 MLS/HR; Start 06/29/16 at 15:30 JC BROUSSARD MD Jun 30, 2016 08:25
[2016-06-30] MEDS: METOPROLOL 25 MG TAB PO SCH ×2 (09:07→21:00)
[2016-06-30] MEDS: CEFEPIME 1GM/50 ML (PMX) 50 ML IVPB SCH ×2 (09:07→20:59)
[2016-06-30] MEDS: HEPARIN 5,000 UNIT/0.5 ML SYG SC SCH ×2 (09:08→21:15)
--- NOTE | 2016-06-30 09:17 | RADRPT ---
PROCEDURE: XR Chest. CLINICAL INDICATION: Dyspnea TECHNIQUE: AP Portable chest. COMPARISON: 06/29/2016 chest x-ray FINDINGS: The soft tissues and bones are remarkable for endotracheal tube 2.5 cm above the charanjit. An enteric tube is noted in the stomach. A left PICC catheter tip is present in the superior vena cava.. Mild cephalization of flow and interstitial edema is present. Bibasilar discoid atelectasis is noted. Again noted is the moderate right and small left pleural effusion. Moderate cardiomegaly is present . No pneumothorax is present. IMPRESSION: 1. Tubes and lines as indicated above in satisfactory position. 2. Mild cardiogenic pulmonary venous hypertension and mild bibasilar discoid atelectasis 3. Moderate cardiomegaly 4. Stable moderate right and small left pleural effusion RPTAT: HDC .Ivon Shaikh MD, Date Time Electronically viewed and signed by .Ivon Shaikh MD, on 06/30/2016 09:16 .C/
--- NOTE | 2016-06-30 09:31 | CONS ---
Date/Time of Note Date/Time of Note DATE: 06/30/16 TIME: 09:29 Consult Date/Type/Reason Admit Date/Time Jun 26, 2016 at 11:39 Type of Consultation: pulmonary Ordering Provider: JC BROUSSARD MD Subjective More comfortable on fentanyl drip Currently not requiring propofol or versed Remains hemodynamically stable Objective Vital Signs Date Time Temp Pulse Resp B/P Pulse Ox O2 Delivery O2 Flow Rate FiO2 06/30/16 07:00 95 16 112/56 100 06/30/16 05:23 30 06/30/16 04:00 98.1 Mechanical Ventilator 06/26/16 18:48 5.0 Intake and Output 06/29/16 06/29/16 06/30/16 15:00 23:00 07:00 Intake Total 660.091 ml 420.538 ml 189 ml Output Total 860 ml 1300 ml 425 ml Balance -199.909 ml -879.462 ml -236 ml PHYSICAL EXAMINATION: GENERAL: A chronically ill-appearing gentleman, intubated on mechanical ventilation, comfortable at rest, no acute distress. VITAL SIGNS: As above NECK: Supple. No JVD or lymphadenopathy. CARDIAC: S1, S2, no added sounds or murmurs. CHEST: Diminished air entry bilaterally. ABDOMEN: Soft, nontender. No guarding or rebound. EXTREMITIES: No cyanosis, clubbing, edema. NEUROLOGIC: Unable to assess. Results/Medications Result Diagram: 06/30/16 0430 06/30/16 0430 Results 24 hrs Chest x-ray Improved congestive cardiac failure Improved aeration Decreased pleural effusions Laboratory Tests Test 06/29/16 16:04 06/30/16 04:30 Potassium Level 3.8 3.6 Alanine Aminotransferase (ALT/SGPT) 120 H Albumin 2.2 L Albumin/Globulin Ratio 0.81 Alkaline Phosphatase 52 Anion Gap 16 Aspartate Amino Transf (AST/SGOT) 60 H Basophils # 0.0 Basophils % 0.2 Blood Morphology Comment Blood Urea Nitrogen 56 H Calcium Level 7.8 L Carbon Dioxide Level 30 Chloride Level 106 Creatinine 1.49 H Direct Bilirubin 0.00 Eosinophils # 0.0 Eosinophils % 0.1 Globulin 2.70 Glucose Level 98 Hematocrit 36.1 L Hemoglobin 11.1 L Indirect Bilirubin 0.6 Lymphocytes # 1.7 Lymphocytes % 11.6 L Magnesium Level 2.0 Mean Corpuscular Hemoglobin 23.3 L Mean Corpuscular Hemoglobin Concent 30.9 L Mean Corpuscular Volume 75.4 L Mean Platelet Volume 8.4 Monocytes # 1.0 H Monocytes % 7.0 Neutrophils # 11.7 H Neutrophils % 81.1 H Nucleated Red Blood Cells # 0.3 H Nucleated Red Blood Cells % 2.0 H Phosphorus Level 3.4 Platelet Count 136 L Red Blood Count 4.78 Red Cell Distribution Width 18.5 H Sodium Level 148 H Total Bilirubin 0.6 Total Protein 4.9 L White Blood Count 14.4 #H Medications Current Medications Ondansetron HCl (Zofran Inj) 4 mg Q6H PRN IV NAUSEA AND/OR VOMITING; Start at 12:00 Nitroglycerin (Nitroglycerin (Sl Tab) 0.4 Mg) 1 tab Q5M PRN SL CHEST PAIN; Start 06/26/16 at 12:00 Acetaminophen (Tylenol Supp) 650 mg Q4H PRN [place] PAIN LEVEL 1-3 OR FEVER Last administered on 06/28/16at 21:19; Admin Dose 650 MG; Start 06/26/16 at 12:00 Morphine Sulfate (morphine) 2 mg Q4H PRN IV PAIN LEVEL 7-10; Start 06/26/16 at 12:00 Lorazepam (Ativan) 1 mg Q2H PRN IV ANXIETY Last administered on 06/29/16at 23: 37; Admin Dose 1 MG; Start 06/26/16 at 12:00 Heparin Sodium (Porcine) 5000 unit 5,000 unit BID SC Last administered on 06/30 09:08; Admin Dose 5,000 UNIT; Start 06/26/16 at 21:00 Cefepime HCl 50 ml @ 100 mls/hr Q12 IVPB Last administered on 06/30/16 09:07 ; Admin Dose 100 MLS/HR; Start 06/26/16 at 15:00 Levofloxacin/ Dextrose 100 ml @ 100 mls/hr Q24H IVPB Last administered on at 14:13; Admin Dose 100 MLS/HR; Start 06/26/16 at 15:00 Propofol (Diprivan) 100 ml @ 2.649 mls/ hr Q12H IV Last administered on at 05:20; Admin Dose 7.947 MLS/HR; Start 06/27/16 at 03:30 IV Flush 10 ml 10 ml PRN PRN IV IV PROTOCOL; Start 06/27/16 at 16:30 Pantoprazole 80 mg/Sodium Chloride 100 ml @ 10 mls/hr Q10H IV Last administered on 06/30/16at 01:15; Admin Dose 10 MLS/HR; Start 06/28/16 at 09:30 Vancomycin HCl/ Sodium Chloride (Vancocin/NS) 250 ml @ 83.333 mls/ hr Q24H IVPB Last administered on 06/29/16at 21:57; Admin Dose 83.333 MLS/HR; Start at 22:00 Metoprolol Tartrate 25 mg 25 mg BID PO Last administered on 06/30/16at 09:07; Admin Dose 25 MG; Start 06/28/16 at 21:00 Fentanyl/Dextrose (D5W) 100 ml @ 0 mls/hr TITRATE IV Last administered on 06/29at 19:14; Admin Dose 2.5 MLS/HR; Start 06/29/16 at 15:30 Assessment/Plan Chief Complaint/Hosp Course IMPRESSION AND PLAN: 1. Hypoxemic respiratory failure. Secondary to congestive cardiac failure 2. Possible component of community-acquired pneumonia. 3. Bacterial endocarditis. Currently nonsurgical candidate 4. History of intravenous drug abuse. 5. History of pulmonary embolus. 6. Renal insufficiency The patient will require: 1. Continued mechanical ventilation. CPAP trial this morning 2. Diuresis if tolerated. Continues Bumex 3. Broad-spectrum antibiotics. 4. DVT and GI prophylaxis. Problems: ASAD DAS MD, [facility] Jun 30, 2016 09:31
--- NOTE | 2016-06-30 10:20 | CONS ---
Date/Time of Note Date/Time of Note DATE: 06/30/16 TIME: 10:16 Assessment/Plan Assessment/Plan Chief Complaint/Hosp Course IMPRESSION: 1. Congestive heart failure exacerbation, systolic, acute on chronic with last known EF approximately 40% by echo May 2016. 2. Aortic regurgitation, moderate to severe with possible ongoing vegetation by most recent echo May 2016. 3. Mitral regurgitation, moderate to severe. 4. History of recent endocarditis status post 6-week course of antibiotics. 5. Cardiomyopathy with decreased left ventricular ejection fraction last approximately 40% by echo 06/14/2016. 6. Coagulopathy. 7. Renal failure-slowly improving 8. Hypokalemia 9. Increased LFTs. 10. Increased BNP. 11. Leukocytosis. 12. Mild anemia. 13.Resp failure s/p intubation 14. s/p Code blue 15.DNR Recc: -Tele -Follow K closely -Follow volume status closely with spot bumex as necessary -Low dose BB as tolerated only -Per CT surgery not a candidate for valve replacement at this time due to high risk. Would attempt transfer to tertiary care center again as possible -F/U blood cultures -Continue abx's Problems: Consultation Date/Type/Reason Admit Date/Time Jun 26, 2016 at 11:39 Initial Consult Date 06/27/2016 Type of Consultation: Cardiology Reason for Consultation CHF/AR/MR Referring Provider: JC BROUSSARD MD Exam/Review of Systems Vital Signs Vitals Vital Signs Date Time Temp Pulse Resp B/P Pulse Ox O2 Delivery O2 Flow Rate FiO2 06/30/16 09:30 97 16 111/55 99 06/30/16 09:00 Mechanical Ventilator 06/30/16 08:00 98.7 06/30/16 05:23 30 06/26/16 18:48 5.0 Intake and Output 06/29/16 06/29/16 06/30/16 15:00 23:00 07:00 Intake Total 660.091 ml 420.538 ml 189 ml Output Total 860 ml 1300 ml 425 ml Balance -199.909 ml -879.462 ml -236 ml Exam Review of Systems: CONSTITUTIONAL: No fevers, chills. PULMONARY: No sob CARDIOVASCULAR: No chest pain/palpitations GASTROINTESTINAL: No nausea/vomiting. GENITOURINARY: No hematuria/dysuria. MUSCULOSKELETAL: No myagias/arthalgias. PSYCHIATRIC: The patient denies depression. NEUROLOGIC: No weakness Constitutional: other (sedated) Psych: no complaints Head: normocephalic ENMT: intubated Neck: jvd (9 cm water), supple Respiratory: other (upper airway rhonchi) Cardiovascular: regular rate and rhythm Gastrointestinal: non-tender, soft Musculoskeletal: muscle tone Extremities: normal pulses, pitting pedal edema (Bilateral) Neurological: other (sedated) Results Result Diagram: 06/30/16 04306/30/16 0430 Results 24 hrs Laboratory Tests Test 06/29/16 16:04 06/30/16 04:30 Potassium Level 3.8 3.6 Alanine Aminotransferase (ALT/SGPT) 120 H Albumin 2.2 L Albumin/Globulin Ratio 0.81 Alkaline Phosphatase 52 Anion Gap 16 Aspartate Amino Transf (AST/SGOT) 60 H Basophils # 0.0 Basophils % 0.2 Blood Morphology Comment Blood Urea Nitrogen 56 H Calcium Level 7.8 L Carbon Dioxide Level 30 Chloride Level 106 Creatinine 1.49 H Direct Bilirubin 0.00 Eosinophils # 0.0 Eosinophils % 0.1 Globulin 2.70 Glucose Level 98 Hematocrit 36.1 L Hemoglobin 11.1 L Indirect Bilirubin 0.6 Lymphocytes # 1.7 Lymphocytes % 11.6 L Magnesium Level 2.0 Mean Corpuscular Hemoglobin 23.3 L Mean Corpuscular Hemoglobin Concent 30.9 L Mean Corpuscular Volume 75.4 L Mean Platelet Volume 8.4 Monocytes # 1.0 H Monocytes % 7.0 Neutrophils # 11.7 H Neutrophils % 81.1 H Nucleated Red Blood Cells # 0.3 H Nucleated Red Blood Cells % 2.0 H Phosphorus Level 3.4 Platelet Count 136 L Red Blood Count 4.78 Red Cell Distribution Width 18.5 H Sodium Level 148 H Total Bilirubin 0.6 Total Protein 4.9 L White Blood Count 14.4 #H Medications Medications Current Medications Ondansetron HCl (Zofran Inj) 4 mg Q6H PRN IV NAUSEA AND/OR VOMITING; Start at 12:00 Nitroglycerin (Nitroglycerin (Sl Tab) 0.4 Mg) 1 tab Q5M PRN SL CHEST PAIN; Start 06/26/16 at 12:00 Acetaminophen (Tylenol Supp) 650 mg Q4H PRN [place] PAIN LEVEL 1-3 OR FEVER Last administered on 06/28/16 21:19; Admin Dose 650 MG; Start 06/26/16 at 12:00 Morphine Sulfate (morphine) 2 mg Q4H PRN IV PAIN LEVEL 7-10; Start 06/26/16 at 12:00 Lorazepam (Ativan) 1 mg Q2H PRN IV ANXIETY Last administered on 06/29/16 23: 37; Admin Dose 1 MG; Start 06/26/16 at 12:00 Heparin Sodium (Porcine) 5000 unit 5,000 unit BID SC Last administered on 06/30 09:08; Admin Dose 5,000 UNIT; Start 06/26/16 at 21:00 Cefepime HCl 50 ml @ 100 mls/hr Q12 IVPB Last administered on 06/30/16 09:07 ; Admin Dose 100 MLS/HR; Start 06/26/16 at 15:00 Levofloxacin/ Dextrose 100 ml @ 100 mls/hr Q24H IVPB Last administered on 14:13; Admin Dose 100 MLS/HR; Start 06/26/16 at 15:00 Propofol (Diprivan) 100 ml @ 2.649 mls/ hr Q12H IV Last administered on 05:20; Admin Dose 7.947 MLS/HR; Start 06/27/16 at 03:30 IV Flush 10 ml 10 ml PRN PRN IV IV PROTOCOL; Start 06/27/16 at 16:30 Pantoprazole 80 mg/Sodium Chloride 100 ml @ 10 mls/hr Q10H IV Last administered on 06/30/16 01:15; Admin Dose 10 MLS/HR; Start 06/28/16 at 09:30 Vancomycin HCl/ Sodium Chloride (Vancocin/NS) 250 ml @ 83.333 mls/ hr Q24H IVPB Last administered on 06/29/16 21:57; Admin Dose 83.333 MLS/HR; Start at 22:00 Metoprolol Tartrate 25 mg 25 mg BID PO Last administered on 06/30/16 09:07; Admin Dose 25 MG; Start 06/28/16 at 21:00 Fentanyl/Dextrose (D5W) 100 ml @ 0 mls/hr TITRATE IV Last administered on 06/29 19:14; Admin Dose 2.5 MLS/HR; Start 06/29/16 at 15:30 SEVERO STUBBS Jun 30, 2016 10:20
--- NOTE | 2016-06-30 12:54 | PN ---
Date/Time of Note Date/Time of Note DATE: 06/30/16 TIME: 12:53 Assessment/Plan Lines/Catheters IV Catheter Type (from Nrs): PICC Line Merino in Place (from Nrs): Yes Assessment/Plan Chief Complaint/Hosp Course IMPRESSION: 1. Endocarditis involving aortic and mitral valve. 2. Aortic regurgitation. 3. Mitral regurgitation. 4. Cardiomyopathy with diminished ejection fraction. 5. Renal failure. 6. History of drug use. 7. Elevation of the transaminases. 8. Coagulopathy. RECOMMENDATIONS: This patient is not a candidate to undergo surgery at the present time; too high risk for surgical repair. Please continue antibiotics. Discussed with the nursing staff. and the mother Problems: Subjective 24 Hr Interval Summary Constitutional: improved Pain Control: mild Exam/Review of Systems Vital Signs Vitals Vital Signs Date Time Temp Pulse Resp B/P Pulse Ox O2 Delivery O2 Flow Rate FiO2 06/30/16 12:00 98.5 100 26 113/54 98 Mechanical Ventilator 06/30/16 11:30 30 06/26/16 18:48 5.0 Intake and Output 06/29/16 06/29/16 06/30/16 15:00 23:00 07:00 Intake Total 660.091 ml 420.538 ml 204 ml Output Total 860 ml 1300 ml 485 ml Balance -199.909 ml -879.462 ml -281 ml Exam Eyes: EOMI, nl conjunctiva, nl lids, nl sclera ENMT: mucosa pink and moist, nl external ears & nose, nl lips & teeth, nl nasal mucosa & septum Neck: non-tender, supple Respiratory: clear to auscultation, normal air movement Cardiovascular: nl pulses, regular rate and rhythm Results Result Diagram: 06/30/1642906/30/16429 KARI ZAMAN MD Jun 30, 2016 12:54
[2016-06-30 13:28] LABS: AADO2 Arterial 50.8 mmHg (7.0-24.0); Allen Test ACCEPTAB; Arterial Base Excess 3.8 mmol/L (-3.0-3); Arterial COHb 0.8 % (0.0-3.0); Arterial Fraction of Oxyhgb 97.2 % (93.0-99.0); Arterial HCO3 27.4 mmol/L (22.0-26.0); Arterial MetHb 0.3 % (0.0-1.5); Arterial Total Hemglobin 12.8 g/dl (12.0-18.0); Blood Gas PS 10; MODE VENT - CPAP
--- NOTE | 2016-06-30 14:10 | CONS ---
Date/Time of Note Date/Time of Note DATE: 06/30/16 TIME: 14:10 Assessment/Plan Assessment/Plan Chief Complaint/Hosp Course ID PROGRESS NOTE TOTAL ABX DAY # => Vanco IV,Cefepime, Levaquin 24H INTERVAL SUMMARY * 36 yo M, mild sedation on the Vent, weaning trials * Orally intubated, non-communicative, WBC down today * MICROBIOLOGY: Blood and urine cultures remain negative. Sputum culture (+) Yeast * DIAGNOSTICS: CXR (+)pulmonary edema with bibasilar atelectasis * INDWELLINGS: Endotracheal tube, NG tube, PICC line right upper extremity placed on June 27. * ANTIMICROBIALS: Vancomycin, cefepime and Levaquin. Ta: 06/28/16-0 Rcvd: 06/29/16-1233 Source: TRACHEAL A Sp Descrip: Procedure Result Microbiology GRAM STAIN Final . NO ORGANISM SEEN MONONUCLEAR WBC RARE RESPIRATORY CULTURE Preliminary Organism 1 YOVANNY ALBICANS QUANTITY SCANT GROWTH PHYSICAL EXAMINATION: GENERAL: 36 yo M, VSS, NAD, Vented HEENT: ETT-> Secure to Vent NECK: Supple, trachea midline. CHEST: Rise symmetrical. Scattered coarse BS HEART: NSR on tele ABDOMEN: Soft EXTREMITIES: Without cyanosis. Bilateral edema. ID ASSESSMENT: 36 yo M w/PMHx IVDU w/(+)HCV, (-)HIV screen admit with: 1. Acute hypoxemic respiratory failure secondary to congestive heart failure exacerbation. 2. Possible aspiration pneumonia versus community-acquired pneumonia. 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 Aortic and mitral valve vegetations with a history of alpha hemolytic streptococcus septicemia in March 2016. 4. Acute CHF exacerbation due to Cardiomyopathy with diminished ejection fraction w/ Aortic & Mitral regurgitation. 5. Transaminitis 6. Acute renal failure 7. Anemia. 8. Coagulopathy INVASIVES: ETT, NG tube, Merino, PICC line. CURRENT ABX: Vancomycin IV, Cefepime, Levaquin s/p Ceftriaxone ID RECOMMENDATIONS: CONTINUE Current ABX PER NOTES: The patient is not a surgical candidate for valve replacement at present time. 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 . . Problems: Consultation Date/Type/Reason Admit Date/Time Jun 26, 2016 at 11:39 Initial Consult Date Type of Consultation: ID Referring Provider: JC BROUSSARD MD Exam/Review of Systems Vital Signs Vitals Vital Signs Date Time Temp Pulse Resp B/P Pulse Ox O2 Delivery O2 Flow Rate FiO2 06/30/16 12:00 98.5 100 26 113/54 98 Mechanical Ventilator 06/30/16 11:30 30 06/26/16 18:48 5.0 Intake and Output 06/29/16 06/29/16 06/30/16 15:00 23:00 07:00 Intake Total 660.091 ml 420.538 ml 204 ml Output Total 860 ml 1300 ml 485 ml Balance -199.909 ml -879.462 ml -281 ml Results Result Diagram: 06/30/16 0430 06/30/16 0430 Results 24 hrs Laboratory Tests Test 12/30/16 16:04 06/30/16 04:30 06/30/16 12:40 Potassium Level 3.8 3.6 Alanine Aminotransferase (ALT/SGPT) 120 H Albumin 2.2 L Albumin/Globulin Ratio 0.81 Alkaline Phosphatase 52 Anion Gap 16 Aspartate Amino Transf (AST/SGOT) 60 H Basophils # 0.0 Basophils % 0.2 Blood Morphology Comment Blood Urea Nitrogen 56 H Calcium Level 7.8 L Carbon Dioxide Level 30 Chloride Level 106 Creatinine 1.49 H Direct Bilirubin 0.00 Eosinophils # 0.0 Eosinophils % 0.1 Globulin 2.70 Glucose Level 98 Hematocrit 36.1 L Hemoglobin 11.1 L Indirect Bilirubin 0.6 Lymphocytes # 1.7 Lymphocytes % 11.6 L Magnesium Level 2.0 Mean Corpuscular Hemoglobin 23.3 L Mean Corpuscular Hemoglobin Concent 30.9 L Mean Corpuscular Volume 75.4 L Mean Platelet Volume 8.4 Monocytes # 1.0 H Monocytes % 7.0 Neutrophils # 11.7 H Neutrophils % 81.1 H Nucleated Red Blood Cells # 0.3 H Nucleated Red Blood Cells % 2.0 H Phosphorus Level 3.4 Platelet Count 136 L Red Blood Count 4.78 Red Cell Distribution Width 18.5 H Sodium Level 148 H Total Bilirubin 0.6 Total Protein 4.9 L White Blood Count 14.4 #H Arterial Blood HCO3 27.4 H Arterial Blood Base Excess 3.8 H Arterial Blood Oxygen Saturation 98.3 H Jaspal Test ACCEPTAB Arterial Blood Gas Puncture Site Right Radial Arterial Blood Carboxyhemoglobin 0.8 Arterial Blood Date Drawn 06/30/2016 1:05:17 PM Arterial Blood Methemoglobin 0.3 Arterial Blood pCO2 (Temp correct) 37.8 Arterial Blood pH (Temp corrected) 7.478 H Arterial Blood pO2 (Temp corrected) 118.7 H Blood Gas A-a O2 Differential 50.8 H Blood Gas Actual Respiration Rate 27 Blood Gas Critical Value Read Back Francheska SALDIVAR RN Blood Gas Low PEEP Setting 5.0 Blood Gas Modality VENT - CPAP Blood Gas Notified Time 06/30/2016 1:27:14 PM Blood Gas Notified Whom RDIX Blood Gas Pressure Support 10 Blood Gas Specimen Source Blood arterial Blood Gas Temperature 37.0 Blood Gas Tidal Volume 466.0 FiO2 30.0 Oxyhemoglobin Percent 97.2 Total Hemoglobin 12.8 Medications Medications Current Medications Ondansetron HCl (Zofran Inj) 4 mg Q6H PRN IV NAUSEA AND/OR VOMITING; Start at 12:00 Nitroglycerin (Nitroglycerin (Sl Tab) 0.4 Mg) 1 tab Q5M PRN SL CHEST PAIN; Start 06/26/16 at 12:00 Acetaminophen (Tylenol Supp) 650 mg Q4H PRN [place] PAIN LEVEL 1-3 OR FEVER Last administered on 06/28/16 21:19; Admin Dose 650 MG; Start 06/26/16 at 12:00 Morphine Sulfate (morphine) 2 mg Q4H PRN IV PAIN LEVEL 7-10; Start 06/26/16 at 12:00 Lorazepam (Ativan) 1 mg Q2H PRN IV ANXIETY Last administered on 06/29/16 23: 37; Admin Dose 1 MG; Start 06/26/16 at 12:00 Heparin Sodium (Porcine) 5000 unit 5,000 unit BID SC Last administered on 06/30 09:08; Admin Dose 5,000 UNIT; Start 06/26/16 at 21:00 Cefepime HCl 50 ml @ 100 mls/hr Q12 IVPB Last administered on 06/30/16 09:07 ; Admin Dose 100 MLS/HR; Start 06/26/16 at 15:00 Levofloxacin/ Dextrose 100 ml @ 100 mls/hr Q24H IVPB Last administered on 14:13; Admin Dose 100 MLS/HR; Start 06/26/16 at 15:00 Propofol (Diprivan) 100 ml @ 2.649 mls/ hr Q12H IV Last administered on 05:20; Admin Dose 7.947 MLS/HR; Start 06/27/16 at 03:30 IV Flush 10 ml 10 ml PRN PRN IV IV PROTOCOL; Start 06/27/16 at 16:30 Pantoprazole 80 mg/Sodium Chloride 100 ml @ 10 mls/hr Q10H IV Last administered on 06/30/16 11:28; Admin Dose 10 MLS/HR; Start 06/28/16 at 09:30 Vancomycin HCl/ Sodium Chloride (Vancocin/NS) 250 ml @ 83.333 mls/ hr Q24H IVPB Last administered on 06/29/16at 21:57; Admin Dose 83.333 MLS/HR; Start at 22:00 Metoprolol Tartrate 25 mg 25 mg BID PO Last administered on 06/30/16at 09:07; Admin Dose 25 MG; Start 06/28/16 at 21:00 Fentanyl/Dextrose (D5W) 100 ml @ 0 mls/hr TITRATE IV Last administered on 06/29at 19:14; Admin Dose 2.5 MLS/HR; Start 06/29/16 at 15:30 Miscellaneous Information (*Rx Drug Level Order Reminder*) 1 ONCE ONCE XX ; Start 06/30/16 at 21:00; Stop 06/30/16 at 21:01 MARIO MCCAIN NP Jun 30, 2016 14:10
[2016-06-30] MEDS: PROPOFOL 100 ML IV SCH (14:56)
[2016-06-30] MEDS: FENTAnyl 1,000 MCG in DEXTROSE 5% 80 ML IV SCH (14:58)
[2016-06-30] MEDS: LEVOFLOXACIN 500MG/D5W (PMX) 100 ML IVPB SCH (15:14)
--- NOTE | 2016-06-30 19:58 | CONS ---
Date/Time of Note Date/Time of Note DATE: 06/30/16 TIME: 19:53 Assessment/Plan Assessment/Plan Chief Complaint/Hosp Course 1. acute renal failure superimposed on CKD . His renal function is improving . He is non oliguric . Will restart Bumex now that his potassium has corrected . 2. 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 CT surgery says that he is not a surgical candidate at this time . I did discuss this with the patients mother . 3. CHF 4. hepatitis C with elevated liver enzymes 5. respiratory failure , ventilator dependent , weening fromk ventilator is being attempted . 6. hypokalemia , potassium is corrected Problems: Consultation Date/Type/Reason Admit Date/Time Jun 26, 2016 at 11:39 Type of Consultation: renal Referring Provider: JC BROUSSARD MD 24 HR Interval Summary Free Text/Dictation He is in the ICU , sedated , intubated and on the ventilator . Subjective hx not possible: pt non-verbal Exam/Review of Systems Vital Signs Vitals Vital Signs Date Time Temp Pulse Resp B/P Pulse Ox O2 Delivery O2 Flow Rate FiO2 06/30/16 18:30 102 16 113/53 98 06/30/16 18:00 Mechanical Ventilator 06/30/16 17:30 30 06/30/16 16:00 98.2 06/26/16 18:48 5.0 Intake and Output 06/29/16 06/29/16 06/30/16 15:00 23:00 07:00 Intake Total 660.091 ml 420.538 ml 204 ml Output Total 860 ml 1300 ml 485 ml Balance -199.909 ml -879.462 ml -281 ml Exam Constitutional: non-verbal Respiratory: clear to auscultation Cardiovascular: regular rate and rhythm, systolic murmur Gastrointestinal: soft Extremities: edema Results Result Diagram: 06/30/16 0430 06/30/16 0430 Results 24 hrs Laboratory Tests Test 06/30/16 04:30 06/30/16 12:40 Alanine Aminotransferase (ALT/SGPT) 120 H Albumin 2.2 L Albumin/Globulin Ratio 0.81 Alkaline Phosphatase 52 Anion Gap 16 Aspartate Amino Transf (AST/SGOT) 60 H Basophils # 0.0 Basophils % 0.2 Blood Morphology Comment Blood Urea Nitrogen 56 H Calcium Level 7.8 L Carbon Dioxide Level 30 Chloride Level 106 Creatinine 1.49 H Direct Bilirubin 0.00 Eosinophils # 0.0 Eosinophils % 0.1 Globulin 2.70 Glucose Level 98 Hematocrit 36.1 L Hemoglobin 11.1 L Indirect Bilirubin 0.6 Lymphocytes # 1.7 Lymphocytes % 11.6 L Magnesium Level 2.0 Mean Corpuscular Hemoglobin 23.3 L Mean Corpuscular Hemoglobin Concent 30.9 L Mean Corpuscular Volume 75.4 L Mean Platelet Volume 8.4 Monocytes # 1.0 H Monocytes % 7.0 Neutrophils # 11.7 H Neutrophils % 81.1 H Nucleated Red Blood Cells # 0.3 H Nucleated Red Blood Cells % 2.0 H Phosphorus Level 3.4 Platelet Count 136 L Potassium Level 3.6 Red Blood Count 4.78 Red Cell Distribution Width 18.5 H Sodium Level 148 H Total Bilirubin 0.6 Total Protein 4.9 L White Blood Count 14.4 #H Arterial Blood HCO3 27.4 H Arterial Blood Base Excess 3.8 H Arterial Blood Oxygen Saturation 98.3 H Jaspal Test ACCEPTAB Arterial Blood Gas Puncture Site Right Radial Arterial Blood Carboxyhemoglobin 0.8 Arterial Blood Date Drawn 06/30/2016 1:05:17 PM Arterial Blood Methemoglobin 0.3 Arterial Blood pCO2 (Temp correct) 37.8 Arterial Blood pH (Temp corrected) 7.478 H Arterial Blood pO2 (Temp corrected) 118.7 H Blood Gas A-a O2 Differential 50.8 H Blood Gas Actual Respiration Rate 27 Blood Gas Critical Value Read Back Francheska SALDIVAR RN Blood Gas Low PEEP Setting 5.0 Blood Gas Modality VENT - CPAP Blood Gas Notified Time 06/30/2016 1:27:14 PM Blood Gas Notified Whom RDIX Blood Gas Pressure Support 10 Blood Gas Specimen Source Blood arterial Blood Gas Temperature 37.0 Blood Gas Tidal Volume 466.0 FiO2 30.0 Oxyhemoglobin Percent 97.2 Total Hemoglobin 12.8 Medications Medications Current Medications Ondansetron HCl (Zofran Inj) 4 mg Q6H PRN IV NAUSEA AND/OR VOMITING; Start at 12:00 Nitroglycerin (Nitroglycerin (Sl Tab) 0.4 Mg) 1 tab Q5M PRN SL CHEST PAIN; Start 06/26/16 at 12:00 Acetaminophen (Tylenol Supp) 650 mg Q4H PRN [place] PAIN LEVEL 1-3 OR FEVER Last administered on 06/28/16at 21:19; Admin Dose 650 MG; Start 06/26/16 at 12:00 Morphine Sulfate (morphine) 2 mg Q4H PRN IV PAIN LEVEL 7-10; Start 06/26/16 at 12:00 Lorazepam (Ativan) 1 mg Q2H PRN IV ANXIETY Last administered on 06/29/16at 23: 37; Admin Dose 1 MG; Start 06/26/16 at 12:00 Heparin Sodium (Porcine) 5000 unit 5,000 unit BID SC Last administered on 06/30 09:08; Admin Dose 5,000 UNIT; Start 06/26/16 at 21:00 Cefepime HCl 50 ml @ 100 mls/hr Q12 IVPB Last administered on 06/30/16 09:07 ; Admin Dose 100 MLS/HR; Start 06/26/16 at 15:00 Levofloxacin/ Dextrose 100 ml @ 100 mls/hr Q24H IVPB Last administered on at 15:14; Admin Dose 100 MLS/HR; Start 06/26/16 at 15:00 Propofol (Diprivan) 100 ml @ 2.649 mls/ hr Q12H IV Last administered on 05:20; Admin Dose 7.947 MLS/HR; Start 06/27/16 at 03:30 IV Flush 10 ml 10 ml PRN PRN IV IV PROTOCOL; Start 06/27/16 at 16:30 Pantoprazole 80 mg/Sodium Chloride 100 ml @ 10 mls/hr Q10H IV Last administered on 06/30/16at 11:28; Admin Dose 10 MLS/HR; Start 06/28/16 at 09:30 Vancomycin HCl/ Sodium Chloride (Vancocin/NS) 250 ml @ 83.333 mls/ hr Q24H IVPB Last administered on 06/29/16 21:57; Admin Dose 83.333 MLS/HR; Start at 22:00 Metoprolol Tartrate 25 mg 25 mg BID PO Last administered on 06/30/16at 09:07; Admin Dose 25 MG; Start 06/28/16 at 21:00 Fentanyl/Dextrose (D5W) 100 ml @ 0 mls/hr TITRATE IV Last administered on 06/30at 14:58; Admin Dose 2.5 MLS/HR; Start 06/29/16 at 15:30 Miscellaneous Information (*Rx Drug Level Order Reminder*) 1 ONCE ONCE XX ; Start 06/30/16 at 21:00; Stop 06/30/16 at 21:01 Nystatin (Nystatin Susp) 5 ml TID PO ; Start 06/30/16 at 21:00 CRESENCIO CASTILLO MD Jun 30, 2016 19:58
[2016-06-30] MEDS: POTASSIUM CHLORIDE 20 MEQ POWDER FOR ORAL SOLN GTB SCH (20:59)
[2016-06-30] MEDS: NYSTATIN SUSP 5 ML CUP PO SCH (21:00)
[2016-06-30] MEDS: BUMETANIDE 1 MG INJ IV SCH (21:55)
[2016-06-30] MEDS: VANCOMYCIN 1.5 GM in SOD CHLORIDE 0.9% 250 ML IVPB SCH (21:56)
[2016-07-01] VITALS (64 sets, daily range): BP systolic 96–135; BP diastolic 47–80; PULSE 94–132; RESP 15–26
[2016-07-01] MEDS: PROPOFOL 100 ML IV SCH (03:30)
[2016-07-01 04:59] LABS: ALBUMIN 2.4 g/dl (3.3-4.9); POTASSIUM 4.2 mmol/L (3.5-5.1)
[2016-07-01 05:01] LABS: BILIRUBIN,INDIRECT 0.7 mg/dl (0-1.1); BILIRUBIN,TOTAL 0.7 mg/dl (0.2-1.3); CREATININE 1.34 mg/dl (0.61-1.24)
[2016-07-01 05:02] LABS: ALBUMIN/GLOBULIN RATIO 0.85; PHOSPHORUS 3.5 mg/dl (2.5-4.9); TOTAL PROTEIN 5.2 g/dl (6.1-8.1)
[2016-07-01 05:03] LABS: CALCIUM 8.1 mg/dl (8.4-10.2); MAGNESIUM 2.1 mg/dl (1.7-2.5)
[2016-07-01 05:08] LABS: BASOPHILS % 0.2 % (0.0-2.0); EOSINOPHILS % 0.2 % (0.0-7.0); HEMATOCRIT 38.9 % (42.0-52.0); HEMOGLOBIN 11.9 g/dl (14.0-18.0); LYMPHOCYTES # 1.6 10^3/ul (0.8-2.9); LYMPHOCYTES % 12.3 % (15.0-51.0); MEAN CORPUSCULAR HEMOGLOBIN 23.2 pg (29.0-33.0); MEAN CORPUSCULAR HGB CONC 30.5 g/dl (32.0-37.0); MEAN CORPUSCULAR VOLUME 76.1 fl (82.0-101.0); MEAN PLATELET VOLUME 8.9 fl (7.4-10.4); MONOCYTE # 0.8 10^3/ul (0.3-0.9); MONOCYTES % 6.3 % (0.0-11.0); NEUTROPHIL # 10.5 10^3/ul (1.6-7.5); PLATELET COUNT 135 10^3/UL (140-440); RED BLOOD COUNT 5.11 10^6/ul (4.70-6.10); RED CELL DISTRIBUTION WIDTH 18.6 % (11.5-14.5)
[2016-07-01] MEDS: BUMETANIDE 1 MG INJ IV SCH ×2 (06:13→13:23)
[2016-07-01 06:30] LABS: CONDITION 1; LH ANALYZER COMMENTS 1
[2016-07-01] MEDS: CEFEPIME 1GM/50 ML (PMX) 50 ML IVPB SCH ×2 (08:19→19:57)
[2016-07-01] MEDS: POTASSIUM CHLORIDE 20 MEQ POWDER FOR ORAL SOLN GTB SCH (08:19)
[2016-07-01] MEDS: NYSTATIN SUSP 5 ML CUP PO SCH ×3 (08:19→19:57)
--- NOTE | 2016-07-01 08:19 | PN ---
Date/Time of Note Date/Time of Note DATE: 07/01/16 TIME: 08:16 Assessment/Plan VTE Prophylaxis VTE Prophylaxis Intervention: heparin Lines/Catheters IV [facility] Saline Lock Urinary Cath still in place: Yes Reason Cath still needed: urinary retention Assessment/Plan Assessment/Plan 36 yo unfortunate male with a past medical history of Bacterial Endocarditis finished 6 week course of IV antibiotics, Drug abuse, Nicotine abuse, Right popliteal thrombosis, PE on Eliquis, Microcytic anemia, CHF - diastolic, who came for worsening shortness of breath. 1. Shortness of breath - hypoxemic respiratory failure - multifactorial - heart failure acute on chronic - Vent dependent - intubated - f/u pulm recs - passed CPAP - mentation not improving 2. Sepsis severe 2/2 to pneumonia - tachycardia/leukocytosis - HCAP - IV cefepime, levaquin, vanc - respiratory cultures, monitor trend - improving - appreciate ID recs - improving 3. CHF - diastolic dysfunction acute on chronic - EF recent shows 40%, D shaped left ventricle, consult cardiology, bumex drip as per renal 4. Hyponatremia - 2/2 fluid overload - appreciate nephrology consult - improving 5. BESSIE - acute on chronic - 2/2 #2 - worsening - ATN with AIN component - improving 6. Transaminitis - 2/2 to sepsis, or possible atypical pneumonia, monitor trend - improving 7. PE - heparin 8. Right popliteal thrombus - continue with heparin 9. Microcytic anemia - monitor H/H, transfuse if hgb < 8 g/dL 10. GI ppx - protonix 11. DVT ppx - heparin dispo - f/u recs, palliative care consult - will monitor functional status - overall prognosis is poor - DNR/DNI - possible conversion to comfort care measures if deteriorating condition - day - of improving function - consider surgical intervention this critical care note took greater than 40 min to complete Subjective 24 Hr Interval Summary Free Text/Dictation Patient had no overnight events. No fevers/chills. Did not wake up from CPAP trial. Spoke to the nurse about the care plan. 15 minutes spent. Exam/Review of Systems Vital Signs Vitals Vital Signs Date Time Temp Pulse Resp B/P Pulse Ox O2 Delivery O2 Flow Rate FiO2 07/01/16 07:30 98.5 96 16 106/55 99 07/01/16 05:40 30 07/01/16 00:00 Mechanical Ventilator Intake and Output 06/30/16 06/30/16 07/01/16 15:00 23:00 07:00 Intake Total 180.0 ml 537 ml 272 ml Output Total 300 ml 285 ml 460 ml Balance -120.0 ml 252 ml -188 ml Exam Gen Evelyn: sedated/intubated HEENT: NC/AT, ETT in place NECK: supple, no thyromegaly THORAX: symmetrical, no obvious deformities CV: S1S2, RRR, III/ holosystolic murmur best heard over mitral area - blowing type Lungs: Coarse breath sounds, scattered wheezing, bibasilar crackles Abd: soft, NT/ND, +BS, no rebound, no guarding, neg HSM : scrotal edema, with some skin sloughing noted EXT: 2+ bilateral upper/lower extremities edema, no ecchymosis, no clubbing, FROM, mild cyanosis noted at phalanges bilaterally lower extremities Neuro: cannot assess - intubated/sedated Psych: agitated Skin: see ext Results Result Diagram: 07/01/16 0420 07/01/16 0420 Results 24 hrs Laboratory Tests Test 06/30/16 12:40 06/30/16 21:00 07/01/16 04:20 Arterial Blood HCO3 27.4 H Arterial Blood Base Excess 3.8 H Arterial Blood Oxygen Saturation 98.3 H Jaspal Test ACCEPTAB Arterial Blood Gas Puncture Site Right Radial Arterial Blood Carboxyhemoglobin 0.8 Arterial Blood Date Drawn 06/30/2016 1:05:17 PM Arterial Blood Methemoglobin 0.3 Arterial Blood pCO2 (Temp correct) 37.8 Arterial Blood pH (Temp corrected) 7.478 H Arterial Blood pO2 (Temp corrected) 118.7 H Blood Gas A-a O2 Differential 50.8 H Blood Gas Actual Respiration Rate 27 Blood Gas Critical Value Read Back Francheska SALDIVAR RN Blood Gas Low PEEP Setting 5.0 Blood Gas Modality VENT - CPAP Blood Gas Notified Time 06/30/2016 1:27:14 PM Blood Gas Notified Whom RDIX Blood Gas Pressure Support 10 Blood Gas Specimen Source Blood arterial Blood Gas Temperature 37.0 Blood Gas Tidal Volume 466.0 FiO2 30.0 Oxyhemoglobin Percent 97.2 Total Hemoglobin 12.8 Vancomycin Level Trough 11.2 Alanine Aminotransferase (ALT/SGPT) 103 H Albumin 2.4 L Albumin/Globulin Ratio 0.85 Alkaline Phosphatase 52 Anion Gap 15 Aspartate Amino Transf (AST/SGOT) 58 H Basophils # 0.0 Basophils % 0.2 Blood Morphology Comment Blood Urea Nitrogen 58 H Calcium Level 8.1 L Carbon Dioxide Level 29 Chloride Level 108 Creatinine 1.34 H Direct Bilirubin 0.00 Eosinophils # 0.0 Eosinophils % 0.2 Globulin 2.80 Glucose Level 114 Hematocrit 38.9 L Hemoglobin 11.9 L Indirect Bilirubin 0.7 Lymphocytes # 1.6 Lymphocytes % 12.3 L Magnesium Level 2.1 Mean Corpuscular Hemoglobin 23.2 L Mean Corpuscular Hemoglobin Concent 30.5 L Mean Corpuscular Volume 76.1 L Mean Platelet Volume 8.9 Monocytes # 0.8 Monocytes % 6.3 Neutrophils # 10.5 H Neutrophils % 81.0 H Nucleated Red Blood Cells # 0.0 Nucleated Red Blood Cells % 0.0 Phosphorus Level 3.5 Platelet Count 135 L Potassium Level 4.2 Red Blood Count 5.11 Red Cell Distribution Width 18.6 H Sodium Level 148 H Total Bilirubin 0.7 Total Protein 5.2 L White Blood Count 13.0 H Medications Medications Current Medications Ondansetron HCl (Zofran Inj) 4 mg Q6H PRN IV NAUSEA AND/OR VOMITING; Start at 12:00 Nitroglycerin (Nitroglycerin (Sl Tab) 0.4 Mg) 1 tab Q5M PRN SL CHEST PAIN; Start 06/26/16 at 12:00 Acetaminophen (Tylenol Supp) 650 mg Q4H PRN [place] PAIN LEVEL 1-3 OR FEVER Last administered on 06/28/16at 21:19; Admin Dose 650 MG; Start 06/26/16 at 12:00 Morphine Sulfate (morphine) 2 mg Q4H PRN IV PAIN LEVEL 7-10; Start 06/26/16 at 12:00 Lorazepam (Ativan) 1 mg Q2H PRN IV ANXIETY Last administered on 06/29/16at 23: 37; Admin Dose 1 MG; Start 06/26/16 at 12:00 Heparin Sodium (Porcine) 5000 unit 5,000 unit BID SC Last administered on 06/30at 21:15; Admin Dose 5,000 UNIT; Start 06/26/16 at 21:00 Cefepime HCl 50 ml @ 100 mls/hr Q12 IVPB Last administered on 06/30/16 20:59 ; Admin Dose 100 MLS/HR; Start 06/26/16 at 15:00 Levofloxacin/ Dextrose 100 ml @ 100 mls/hr Q24H IVPB Last administered on at 15:14; Admin Dose 100 MLS/HR; Start 06/26/16 at 15:00 Propofol (Diprivan) 100 ml @ 2.649 mls/ hr Q12H IV Last administered on at 05:20; Admin Dose 7.947 MLS/HR; Start 06/27/16 at 03:30 IV Flush 10 ml 10 ml PRN PRN IV IV PROTOCOL; Start 06/27/16 at 16:30 Pantoprazole 80 mg/Sodium Chloride 100 ml @ 10 mls/hr Q10H IV Last administered on 06/30/16 21:56; Admin Dose 10 MLS/HR; Start 06/28/16 at 09:30 Vancomycin HCl/ Sodium Chloride (Vancocin/NS) 250 ml @ 83.333 mls/ hr Q24H IVPB Last administered on 06/30/16 21:56; Admin Dose 83.333 MLS/HR; Start at 22:00 Metoprolol Tartrate 25 mg 25 mg BID PO Last administered on 06/30/16 21:00; Admin Dose 25 MG; Start 06/28/16 at 21:00 Fentanyl/Dextrose (D5W) 100 ml @ 0 mls/hr TITRATE IV Last administered on 06/30 14:58; Admin Dose 2.5 MLS/HR; Start 06/29/16 at 15:30 Nystatin (Nystatin Susp) 5 ml TID PO Last administered on 06/30/16 21:00; Admin Dose 5 ML; Start 06/30/16 at 21:00 Potassium Chloride (Potassium Chloride Pwd/Soln) 40 meq DAILY GTB Last administered on 06/30/16 20:59; Admin Dose 40 MEQ; Start 06/30/16 at 20:00 Bumetanide (Bumex) 1 mg Q8 IV Last administered on 07/01/16 06:13; Admin Dose 1 MG; Start 06/30/16 at 22:00 JC BROUSSARD MD Jul 01, 2016 08:19
[2016-07-01] MEDS: METOPROLOL 25 MG TAB PO SCH ×2 (08:20→21:42)
[2016-07-01] MEDS: HEPARIN 5,000 UNIT/0.5 ML SYG SC SCH ×2 (08:51→21:41)
[2016-07-01] MEDS: PANTOPRAZOLE IV 80 MG in SOD CHLORIDE 0.9% 100 ML IV SCH ×2 (09:10→17:13)
--- NOTE | 2016-07-01 10:21 | CONS ---
Date/Time of Note Date/Time of Note DATE: 07/01/16 TIME: 10:21 Consult Date/Type/Reason Admit Date/Time Jun 26, 2016 at 11:39 Type of Consultation: pulmonary Ordering Provider: JC BROUSASRD MD Subjective Remains on mechanical ventilation somewhat more stable however stools with significant encephalopathy Objective Vital Signs Date Time Temp Pulse Resp B/P Pulse Ox O2 Delivery O2 Flow Rate FiO2 07/01/16 08:00 99 07/01/16 07:30 98.5 16 106/55 99 07/01/16 05:40 30 07/01/16 00:00 Mechanical Ventilator Intake and Output 06/30/16 06/30/16 07/01/16 15:00 23:00 07:00 Intake Total 180.0 ml 537 ml 272 ml Output Total 300 ml 285 ml 460 ml Balance -120.0 ml 252 ml -188 ml PHYSICAL EXAMINATION: GENERAL: A chronically ill-appearing gentleman, intubated on mechanical ventilation, comfortable at rest, no acute distress. VITAL SIGNS: As above NECK: Supple. No JVD or lymphadenopathy. CARDIAC: S1, S2, no added sounds or murmurs. CHEST: Diminished air entry bilaterally. ABDOMEN: Soft, nontender. No guarding or rebound. EXTREMITIES: No cyanosis, clubbing, edema. NEUROLOGIC: Unable to assess. Results/Medications Result Diagram: 07/01/16 0420 07/01/16 0420 Results 24 hrs Laboratory Tests Test 06/30/16 12:40 06/30/16 21:00 07/01/16 04:20 Arterial Blood HCO3 27.4 H Arterial Blood Base Excess 3.8 H Arterial Blood Oxygen Saturation 98.3 H Jaspal Test ACCEPTAB Arterial Blood Gas Puncture Site Right Radial Arterial Blood Carboxyhemoglobin 0.8 Arterial Blood Date Drawn 06/30/2016 1:05:17 PM Arterial Blood Methemoglobin 0.3 Arterial Blood pCO2 (Temp correct) 37.8 Arterial Blood pH (Temp corrected) 7.478 H Arterial Blood pO2 (Temp corrected) 118.7 H Blood Gas A-a O2 Differential 50.8 H Blood Gas Actual Respiration Rate 27 Blood Gas Critical Value Read Back Francheska SALDIVAR RN Blood Gas Low PEEP Setting 5.0 Blood Gas Modality VENT - CPAP Blood Gas Notified Time 06/30/2016 1:27:14 PM Blood Gas Notified Whom RDIX Blood Gas Pressure Support 10 Blood Gas Specimen Source Blood arterial Blood Gas Temperature 37.0 Blood Gas Tidal Volume 466.0 FiO2 30.0 Oxyhemoglobin Percent 97.2 Total Hemoglobin 12.8 Vancomycin Level Trough 11.2 Alanine Aminotransferase (ALT/SGPT) 103 H Albumin 2.4 L Albumin/Globulin Ratio 0.85 Alkaline Phosphatase 52 Anion Gap 15 Aspartate Amino Transf (AST/SGOT) 58 H Basophils # 0.0 Basophils % 0.2 Blood Morphology Comment Blood Urea Nitrogen 58 H Calcium Level 8.1 L Carbon Dioxide Level 29 Chloride Level 108 Creatinine 1.34 H Direct Bilirubin 0.00 Eosinophils # 0.0 Eosinophils % 0.2 Globulin 2.80 Glucose Level 114 Hematocrit 38.9 L Hemoglobin 11.9 L Indirect Bilirubin 0.7 Lymphocytes # 1.6 Lymphocytes % 12.3 L Magnesium Level 2.1 Mean Corpuscular Hemoglobin 23.2 L Mean Corpuscular Hemoglobin Concent 30.5 L Mean Corpuscular Volume 76.1 L Mean Platelet Volume 8.9 Monocytes # 0.8 Monocytes % 6.3 Neutrophils # 10.5 H Neutrophils % 81.0 H Nucleated Red Blood Cells # 0.0 Nucleated Red Blood Cells % 0.0 Phosphorus Level 3.5 Platelet Count 135 L Potassium Level 4.2 Red Blood Count 5.11 Red Cell Distribution Width 18.6 H Sodium Level 148 H Total Bilirubin 0.7 Total Protein 5.2 L White Blood Count 13.0 H Medications Current Medications Ondansetron HCl (Zofran Inj) 4 mg Q6H PRN IV NAUSEA AND/OR VOMITING; Start at 12:00 Nitroglycerin (Nitroglycerin (Sl Tab) 0.4 Mg) 1 tab Q5M PRN SL CHEST PAIN; Start 06/26/16 at 12:00 Acetaminophen (Tylenol Supp) 650 mg Q4H PRN [place] PAIN LEVEL 1-3 OR FEVER Last administered on 06/28/16at 21:19; Admin Dose 650 MG; Start 06/26/16 at 12:00 Morphine Sulfate (morphine) 2 mg Q4H PRN IV PAIN LEVEL 7-10; Start 06/26/16 at 12:00 Lorazepam (Ativan) 1 mg Q2H PRN IV ANXIETY Last administered on 06/29/16at 23: 37; Admin Dose 1 MG; Start 06/26/16 at 12:00 Heparin Sodium (Porcine) 5000 unit 5,000 unit BID SC Last administered on 08:51; Admin Dose 5,000 UNIT; Start 06/26/16 at 21:00 Cefepime HCl 50 ml @ 100 mls/hr Q12 IVPB Last administered on 07/01/16 08:19; Admin Dose 100 MLS/HR; Start 06/26/16 at 15:00 Levofloxacin/ Dextrose 100 ml @ 100 mls/hr Q24H IVPB Last administered on at 15:14; Admin Dose 100 MLS/HR; Start 06/26/16 at 15:00 Propofol (Diprivan) 100 ml @ 2.649 mls/ hr Q12H IV Last administered on at 05:20; Admin Dose 7.947 MLS/HR; Start 06/27/16 at 03:30 IV Flush 10 ml 10 ml PRN PRN IV IV PROTOCOL; Start 06/27/16 at 16:30 Pantoprazole 80 mg/Sodium Chloride 100 ml @ 10 mls/hr Q10H IV Last administered on 07/01/16 09:10; Admin Dose 10 MLS/HR; Start 06/28/16 at 09:30 Vancomycin HCl/ Sodium Chloride (Vancocin/NS) 250 ml @ 83.333 mls/ hr Q24H IVPB Last administered on 06/30/16at 21:56; Admin Dose 83.333 MLS/HR; Start at 22:00 Metoprolol Tartrate 25 mg 25 mg BID PO Last administered on 07/01/16 08:20; Admin Dose 25 MG; Start 06/28/16 at 21:00 Fentanyl/Dextrose (D5W) 100 ml @ 0 mls/hr TITRATE IV Last administered on 06/30at 14:58; Admin Dose 2.5 MLS/HR; Start 06/29/16 at 15:30 Nystatin (Nystatin Susp) 5 ml TID PO Last administered on 07/01/16 08:19; Admin Dose 5 ML; Start 06/30/16 at 21:00 Potassium Chloride (Potassium Chloride Pwd/Soln) 40 meq DAILY GTB Last administered on 07/01/16 08:19; Admin Dose 40 MEQ; Start 06/30/16 at 20:00 Bumetanide (Bumex) 1 mg Q8 IV Last administered on 07/01/16t 06:13; Admin Dose 1 MG; Start 06/30/16 at 22:00 Assessment/Plan Chief Complaint/Hosp Course IMPRESSION AND PLAN: 1. Hypoxemic respiratory failure. Secondary to congestive cardiac failure 2. Possible component of community-acquired pneumonia. 3. Bacterial endocarditis. Currently nonsurgical candidate 4. History of intravenous drug abuse. 5. History of pulmonary embolus. 6. Renal insufficiency The patient will require: 1. Continued mechanical ventilation. CPAP trial as tolerated 2. Diuresis if tolerated. 3. Broad-spectrum antibiotics. 4. DVT and GI prophylaxis. Problems: ASAD DAS MD, [facility] Jul 01, 2016 10:21
--- NOTE | 2016-07-01 11:34 | CONS ---
Date/Time of Note Date/Time of Note DATE: 07/01/16 TIME: 11:32 Assessment/Plan Assessment/Plan Chief Complaint/Hosp Course IMPRESSION: 1. Congestive heart failure exacerbation, systolic, acute on chronic with last known EF approximately 40% by echo May 2016. 2. Aortic regurgitation, moderate to severe with possible ongoing vegetation by most recent echo May 2016. 3. Mitral regurgitation, moderate to severe. 4. History of recent endocarditis status post 6-week course of antibiotics. 5. Cardiomyopathy with decreased left ventricular ejection fraction last approximately 40% by echo 06/14/2016. 6. Coagulopathy. 7. Renal failure-slowly improving 8. Hypokalemia 9. Increased LFTs. 10. Increased BNP. 11. Leukocytosis. 12. Mild anemia. 13.Resp failure s/p intubation 14. s/p Code blue 15.DNR Recc: -Tele -Follow volume status closely with ongoing Bumex diuresis -Low dose BB as tolerated only -Per CT surgery not a candidate for valve replacement at this time due to high risk. Would attempt transfer to tertiary care center again as possible -F/U blood cultures -Continue abx's Problems: Consultation Date/Type/Reason Admit Date/Time Jun 26, 2016 at 11:39 Initial Consult Date 06/27/2016 Type of Consultation: Cardiology Reason for Consultation CHF/AR/MR Referring Provider: JC BROUSSARD MD Exam/Review of Systems Vital Signs Vitals Vital Signs Date Time Temp Pulse Resp B/P Pulse Ox O2 Delivery O2 Flow Rate FiO2 07/01/16 10:30 95 17 103/47 99 07/01/16 07:30 98.5 07/01/16 05:40 30 07/01/16 00:00 Mechanical Ventilator Intake and Output 06/30/16 06/30/16 07/01/16 15:00 23:00 07:00 Intake Total 180.0 ml 537 ml 272 ml Output Total 300 ml 285 ml 505 ml Balance -120.0 ml 252 ml -233 ml Exam Review of Systems: CONSTITUTIONAL: No fevers, chills. PULMONARY: intubated CARDIOVASCULAR: No chest pain/palpitations GASTROINTESTINAL: No nausea/vomiting. GENITOURINARY: No hematuria/dysuria. MUSCULOSKELETAL: No myagias/arthalgias. PSYCHIATRIC: The patient denies depression. NEUROLOGIC: sedated/encephalopathic Constitutional: other (sedated) Psych: no complaints Head: normocephalic ENMT: mucosa pink and moist Neck: jvd (9 cm water), supple Respiratory: diminished breath sounds (at bases/B) Cardiovascular: regular rate and rhythm Gastrointestinal: non-tender, soft Musculoskeletal: muscle tone (normal) Extremities: pitting pedal edema (Bilateral;) Neurological: other (encephalopathic) Results Result Diagram: 07/01/16 04207/01/16 0420 Results 24 hrs Laboratory Tests Test 06/30/16 12:40 06/30/16 21:00 07/01/16 04:20 Arterial Blood HCO3 27.4 H Arterial Blood Base Excess 3.8 H Arterial Blood Oxygen Saturation 98.3 H Jaspal Test ACCEPTAB Arterial Blood Gas Puncture Site Right Radial Arterial Blood Carboxyhemoglobin 0.8 Arterial Blood Date Drawn 06/30/2016 1:05:17 PM Arterial Blood Methemoglobin 0.3 Arterial Blood pCO2 (Temp correct) 37.8 Arterial Blood pH (Temp corrected) 7.478 H Arterial Blood pO2 (Temp corrected) 118.7 H Blood Gas A-a O2 Differential 50.8 H Blood Gas Actual Respiration Rate 27 Blood Gas Critical Value Read Back Francheska SALDIVAR RN Blood Gas Low PEEP Setting 5.0 Blood Gas Modality VENT - CPAP Blood Gas Notified Time 06/30/2016 1:27:14 PM Blood Gas Notified Whom RDIX Blood Gas Pressure Support 10 Blood Gas Specimen Source Blood arterial Blood Gas Temperature 37.0 Blood Gas Tidal Volume 466.0 FiO2 30.0 Oxyhemoglobin Percent 97.2 Total Hemoglobin 12.8 Vancomycin Level Trough 11.2 Alanine Aminotransferase (ALT/SGPT) 103 H Albumin 2.4 L Albumin/Globulin Ratio 0.85 Alkaline Phosphatase 52 Anion Gap 15 Aspartate Amino Transf (AST/SGOT) 58 H Basophils # 0.0 Basophils % 0.2 Blood Morphology Comment Blood Urea Nitrogen 58 H Calcium Level 8.1 L Carbon Dioxide Level 29 Chloride Level 108 Creatinine 1.34 H Direct Bilirubin 0.00 Eosinophils # 0.0 Eosinophils % 0.2 Globulin 2.80 Glucose Level 114 Hematocrit 38.9 L Hemoglobin 11.9 L Indirect Bilirubin 0.7 Lymphocytes # 1.6 Lymphocytes % 12.3 L Magnesium Level 2.1 Mean Corpuscular Hemoglobin 23.2 L Mean Corpuscular Hemoglobin Concent 30.5 L Mean Corpuscular Volume 76.1 L Mean Platelet Volume 8.9 Monocytes # 0.8 Monocytes % 6.3 Neutrophils # 10.5 H Neutrophils % 81.0 H Nucleated Red Blood Cells # 0.0 Nucleated Red Blood Cells % 0.0 Phosphorus Level 3.5 Platelet Count 135 L Potassium Level 4.2 Red Blood Count 5.11 Red Cell Distribution Width 18.6 H Sodium Level 148 H Total Bilirubin 0.7 Total Protein 5.2 L White Blood Count 13.0 H Medications Medications Current Medications Ondansetron HCl (Zofran Inj) 4 mg Q6H PRN IV NAUSEA AND/OR VOMITING; Start at 12:00 Nitroglycerin (Nitroglycerin (Sl Tab) 0.4 Mg) 1 tab Q5M PRN SL CHEST PAIN; Start 06/26/16 at 12:00 Acetaminophen (Tylenol Supp) 650 mg Q4H PRN [place] PAIN LEVEL 1-3 OR FEVER Last administered on 06/28/16at 21:19; Admin Dose 650 MG; Start 06/26/16 at 12:00 Morphine Sulfate (morphine) 2 mg Q4H PRN IV PAIN LEVEL 7-10; Start 06/26/16 at 12:00 Lorazepam (Ativan) 1 mg Q2H PRN IV ANXIETY Last administered on 06/29/16at 23: 37; Admin Dose 1 MG; Start 06/26/16 at 12:00 Heparin Sodium (Porcine) 5000 unit 5,000 unit BID SC Last administered on 08:51; Admin Dose 5,000 UNIT; Start 06/26/16 at 21:00 Cefepime HCl 50 ml @ 100 mls/hr Q12 IVPB Last administered on 07/01/16 08:19; Admin Dose 100 MLS/HR; Start 06/26/16 at 15:00 Levofloxacin/ Dextrose 100 ml @ 100 mls/hr Q24H IVPB Last administered on at 15:14; Admin Dose 100 MLS/HR; Start 06/26/16 at 15:00 Propofol (Diprivan) 100 ml @ 2.649 mls/ hr Q12H IV Last administered on at 05:20; Admin Dose 7.947 MLS/HR; Start 06/27/16 at 03:30 IV Flush 10 ml 10 ml PRN PRN IV IV PROTOCOL; Start 06/27/16 at 16:30 Pantoprazole 80 mg/Sodium Chloride 100 ml @ 10 mls/hr Q10H IV Last administered on 07/01/16 09:10; Admin Dose 10 MLS/HR; Start 06/28/16 at 09:30 Vancomycin HCl/ Sodium Chloride (Vancocin/NS) 250 ml @ 83.333 mls/ hr Q24H IVPB Last administered on 06/30/16at 21:56; Admin Dose 83.333 MLS/HR; Start at 22:00 Metoprolol Tartrate 25 mg 25 mg BID PO Last administered on 07/01/16 08:20; Admin Dose 25 MG; Start 06/28/16 at 21:00 Fentanyl/Dextrose (D5W) 100 ml @ 0 mls/hr TITRATE IV Last administered on 06/30at 14:58; Admin Dose 2.5 MLS/HR; Start 06/29/16 at 15:30 Nystatin (Nystatin Susp) 5 ml TID PO Last administered on 07/01/16 08:19; Admin Dose 5 ML; Start 06/30/16 at 21:00 Potassium Chloride (Potassium Chloride Pwd/Soln) 40 meq DAILY GTB Last administered on 07/01/16 08:19; Admin Dose 40 MEQ; Start 06/30/16 at 20:00 Bumetanide (Bumex) 1 mg Q8 IV Last administered on 07/01/16 06:13; Admin Dose 1 MG; Start 06/30/16 at 22:00 SEVERO STUBBS Jul 01, 2016 11:34
--- NOTE | 2016-07-01 12:04 | CONS ---
Date/Time of Note Date/Time of Note DATE: 07/01/16 TIME: 12:03 Assessment/Plan Assessment/Plan Chief Complaint/Hosp Course ID PROGRESS NOTE TOTAL ABX DAY # => Vanco IV,Cefepime, Levaquin 24H INTERVAL SUMMARY * No fevers, poor prognosis = palliative care appropriate, not a candidate for thoracic surgery for Aortic/Mitral valve replacement Ta: 06/28/16-1729 Rcvd: 06/29/16-1233 Source: TRACHEAL A Sp Descrip: Procedure Result Microbiology GRAM STAIN Final . NO ORGANISM SEEN MONONUCLEAR WBC RARE RESPIRATORY CULTURE Preliminary Organism 1 YOVANNY ALBICANS QUANTITY SCANT GROWTH PHYSICAL EXAMINATION: GENERAL: 36 yo M, VSS, NAD, Vented HEENT: ETT-> Secure to Vent NECK: Supple, trachea midline. CHEST: Rise symmetrical. Scattered coarse BS HEART: NSR on tele ABDOMEN: Soft EXTREMITIES: Without cyanosis. Bilateral edema. ID ASSESSMENT: 36 yo M w/PMHx IVDU w/(+)HCV, (-)HIV screen admit with: 1. Acute hypoxemic respiratory failure secondary to congestive heart failure exacerbation. 2. Possible aspiration pneumonia versus community-acquired pneumonia. 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 Aortic and mitral valve vegetations with a history of alpha hemolytic streptococcus septicemia in March 2016. 4. Acute CHF exacerbation due to Cardiomyopathy with diminished ejection fraction w/ Aortic & Mitral regurgitation. 5. Transaminitis 6. Acute renal failure 7. Anemia. 8. Coagulopathy INVASIVES: ETT, NG tube, Merino, PICC line. CURRENT ABX: Vancomycin IV, Cefepime, Levaquin s/p Ceftriaxone ID RECOMMENDATIONS: CONTINUE Current ABX PER NOTES: The patient is not a surgical candidate for valve replacement at present time. 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 . . Problems: Consultation Date/Type/Reason Admit Date/Time Jun 26, 2016 at 11:39 Type of Consultation: ID Referring Provider: JC BROUSSARD MD Exam/Review of Systems Vital Signs Vitals Vital Signs Date Time Temp Pulse Resp B/P Pulse Ox O2 Delivery O2 Flow Rate FiO2 07/01/16 10:30 95 17 103/47 99 07/01/16 07:30 98.5 07/01/16 05:40 30 07/01/16 00:00 Mechanical Ventilator Intake and Output 06/30/16 06/30/16 07/01/16 15:00 23:00 07:00 Intake Total 180.0 ml 537 ml 272 ml Output Total 300 ml 285 ml 505 ml Balance -120.0 ml 252 ml -233 ml Results Result Diagram: 07/01/16 0420 07/01/16 0420 Results 24 hrs Laboratory Tests Test 06/30/16 12:40 06/30/16 21:00 07/01/16 04:20 Arterial Blood HCO3 27.4 H Arterial Blood Base Excess 3.8 H Arterial Blood Oxygen Saturation 98.3 H Jaspal Test ACCEPTAB Arterial Blood Gas Puncture Site Right Radial Arterial Blood Carboxyhemoglobin 0.8 Arterial Blood Date Drawn 06/30/2016 1:05:17 PM Arterial Blood Methemoglobin 0.3 Arterial Blood pCO2 (Temp correct) 37.8 Arterial Blood pH (Temp corrected) 7.478 H Arterial Blood pO2 (Temp corrected) 118.7 H Blood Gas A-a O2 Differential 50.8 H Blood Gas Actual Respiration Rate 27 Blood Gas Critical Value Read Back Francheska SALDIVAR RN Blood Gas Low PEEP Setting 5.0 Blood Gas Modality VENT - CPAP Blood Gas Notified Time 06/30/2016 1:27:14 PM Blood Gas Notified Whom RDIX Blood Gas Pressure Support 10 Blood Gas Specimen Source Blood arterial Blood Gas Temperature 37.0 Blood Gas Tidal Volume 466.0 FiO2 30.0 Oxyhemoglobin Percent 97.2 Total Hemoglobin 12.8 Vancomycin Level Trough 11.2 Alanine Aminotransferase (ALT/SGPT) 103 H Albumin 2.4 L Albumin/Globulin Ratio 0.85 Alkaline Phosphatase 52 Anion Gap 15 Aspartate Amino Transf (AST/SGOT) 58 H Basophils # 0.0 Basophils % 0.2 Blood Morphology Comment Blood Urea Nitrogen 58 H Calcium Level 8.1 L Carbon Dioxide Level 29 Chloride Level 108 Creatinine 1.34 H Direct Bilirubin 0.00 Eosinophils # 0.0 Eosinophils % 0.2 Globulin 2.80 Glucose Level 114 Hematocrit 38.9 L Hemoglobin 11.9 L Indirect Bilirubin 0.7 Lymphocytes # 1.6 Lymphocytes % 12.3 L Magnesium Level 2.1 Mean Corpuscular Hemoglobin 23.2 L Mean Corpuscular Hemoglobin Concent 30.5 L Mean Corpuscular Volume 76.1 L Mean Platelet Volume 8.9 Monocytes # 0.8 Monocytes % 6.3 Neutrophils # 10.5 H Neutrophils % 81.0 H Nucleated Red Blood Cells # 0.0 Nucleated Red Blood Cells % 0.0 Phosphorus Level 3.5 Platelet Count 135 L Potassium Level 4.2 Red Blood Count 5.11 Red Cell Distribution Width 18.6 H Sodium Level 148 H Total Bilirubin 0.7 Total Protein 5.2 L White Blood Count 13.0 H Medications Medications Current Medications Ondansetron HCl (Zofran Inj) 4 mg Q6H PRN IV NAUSEA AND/OR VOMITING; Start at 12:00 Nitroglycerin (Nitroglycerin (Sl Tab) 0.4 Mg) 1 tab Q5M PRN SL CHEST PAIN; Start 06/26/16 at 12:00 Acetaminophen (Tylenol Supp) 650 mg Q4H PRN [place] PAIN LEVEL 1-3 OR FEVER Last administered on 06/28/16 21:19; Admin Dose 650 MG; Start 06/26/16 at 12:00 Morphine Sulfate (morphine) 2 mg Q4H PRN IV PAIN LEVEL 7-10; Start 06/26/16 at 12:00 Lorazepam (Ativan) 1 mg Q2H PRN IV ANXIETY Last administered on 06/29/16at 23: 37; Admin Dose 1 MG; Start 06/26/16 at 12:00 Heparin Sodium (Porcine) 5000 unit 5,000 unit BID SC Last administered on 08:51; Admin Dose 5,000 UNIT; Start 06/26/16 at 21:00 Cefepime HCl 50 ml @ 100 mls/hr Q12 IVPB Last administered on 07/01/16 08:19; Admin Dose 100 MLS/HR; Start 06/26/16 at 15:00 Levofloxacin/ Dextrose 100 ml @ 100 mls/hr Q24H IVPB Last administered on at 15:14; Admin Dose 100 MLS/HR; Start 06/26/16 at 15:00 Propofol (Diprivan) 100 ml @ 2.649 mls/ hr Q12H IV Last administered on 05:20; Admin Dose 7.947 MLS/HR; Start 06/27/16 at 03:30 IV Flush 10 ml 10 ml PRN PRN IV IV PROTOCOL; Start 06/27/16 at 16:30 Pantoprazole 80 mg/Sodium Chloride 100 ml @ 10 mls/hr Q10H IV Last administered on 07/01/16 09:10; Admin Dose 10 MLS/HR; Start 06/28/16 at 09:30 Vancomycin HCl/ Sodium Chloride (Vancocin/NS) 250 ml @ 83.333 mls/ hr Q24H IVPB Last administered on 06/30/16at 21:56; Admin Dose 83.333 MLS/HR; Start at 22:00 Metoprolol Tartrate 25 mg 25 mg BID PO Last administered on 07/01/16 08:20; Admin Dose 25 MG; Start 06/28/16 at 21:00 Fentanyl/Dextrose (D5W) 100 ml @ 0 mls/hr TITRATE IV Last administered on 06/30at 14:58; Admin Dose 2.5 MLS/HR; Start 06/29/16 at 15:30 Nystatin (Nystatin Susp) 5 ml TID PO Last administered on 07/01/16 08:19; Admin Dose 5 ML; Start 06/30/16 at 21:00 Potassium Chloride (Potassium Chloride Pwd/Soln) 40 meq DAILY GTB Last administered on 07/01/16 08:19; Admin Dose 40 MEQ; Start 06/30/16 at 20:00 Bumetanide (Bumex) 1 mg Q8 IV Last administered on 07/01/16 06:13; Admin Dose 1 MG; Start 06/30/16 at 22:00 Hydralazine HCl (Apresoline) 10 mg Q8 PO ; Start 07/01/16 at 14:00 MARIO MCCAIN NP Jul 01, 2016 12:04
[2016-07-01] MEDS: LORAZEPAM 2 MG INJ IV PRN ×2 (14:49→17:45)
[2016-07-01] MEDS: LEVOFLOXACIN 500MG/D5W (PMX) 100 ML IVPB SCH (14:54)
--- NOTE | 2016-07-01 18:31 | CONS ---
Date/Time of Note Date/Time of Note DATE: 07/01/16 TIME: 18:30 Assessment/Plan Assessment/Plan Chief Complaint/Hosp Course Impression and Recommendations: 1. Microcytic anemia: - r/o GIB with occult blood. If occult blood negative, can dc protonix gtt and change to iv bid - check iron panel and replete with iv iron if low 2. Transaminitis - 2/2 to sepsis, or possible to viral hepatitis given his IVDU history. Currently transaminase stable - check acute hepatitis panel 3. Encephalopathy - check ammonia level to r/o hepatic encephalopathy 4. Shortness of breath - hypoxemic respiratory failure - multifactorial - heart failure acute on chronic - Vent dependent - intubated - f/u pulm recs - passed CPAP - mentation not improving 5. Sepsis severe 2/2 to pneumonia - tachycardia/leukocytosis - HCAP - IV cefepime, levaquin, vanc - respiratory cultures, monitor trend - improving - follow ID recs 6. CHF - diastolic dysfunction acute on chronic - EF recent shows 40%, D shaped left ventricle - f/u cardiology Problems: Consultation Date/Type/Reason Admit Date/Time Jun 26, 2016 at 11:39 Type of Consultation: GI Reason for Consultation microcytic anemia r/o GIB elevated transaminases Hx of Present Illness 36 yo unfortunate male with a past medical history of Bacterial Endocarditis finished 6 week course of IV antibiotics, Drug abuse, Nicotine abuse, Right popliteal thrombosis, PE on Eliquis, Microcytic anemia, CHF - diastolic, who is admitted worsening shortness of breath. For his bacterial endocarditis, a tertiary care center told him that he has an inoperable valve. At this time, he is sedated and intubated. Although he opens eyes, he is unable to answer questions to me. unable to obtain secondary to patient's encephalopathy Psychological: no complaints Past Medical History baccterial endocarditis, pulmonary embolism, riht popliteal artery thrombus, microcytic anemia Medical History: congestive heart failure Past Surgical History Past Surgical Hx: no surgical history Family History Significant Family History: no pertinent family hx Social History Alcohol Use: none Smoking Status: Current every day smoker Drug Use: heroin Exam/Review of Systems Vital Signs Vitals Vital Signs Date Time Temp Pulse Resp B/P Pulse Ox O2 Delivery O2 Flow Rate FiO2 07/01/16 17:45 128 24 94 07/01/16 17:30 117/80 07/01/16 17:30 30 07/01/16 16:00 98.8 07/01/16 00:00 Mechanical Ventilator Intake and Output 06/30/16 06/30/16 07/01/16 15:00 23:00 07:00 Intake Total 180.0 ml 537 ml 272 ml Output Total 300 ml 285 ml 505 ml Balance -120.0 ml 252 ml -233 ml Exam Psych: confusion Head: atraumatic, normocephalic Eyes: EOMI, nl conjunctiva, nl lids, nl sclera ENMT: mucosa pink and moist, nl external ears & nose, nl lips & teeth, nl nasal mucosa & septum Neck: non-tender, supple Respiratory: clear to auscultation, normal air movement Cardiovascular: nl pulses, regular rate and rhythm Gastrointestinal: bowel sounds, soft Results Result Diagram: 07/01/1641907/01/16 0420 Results 24 hrs Laboratory Tests Test 06/30/16 21:00 07/01/16 04:20 Vancomycin Level Trough 11.2 Alanine Aminotransferase (ALT/SGPT) 103 H Albumin 2.4 L Albumin/Globulin Ratio 0.85 Alkaline Phosphatase 52 Anion Gap 15 Aspartate Amino Transf (AST/SGOT) 58 H Basophils # 0.0 Basophils % 0.2 Blood Morphology Comment Blood Urea Nitrogen 58 H Calcium Level 8.1 L Carbon Dioxide Level 29 Chloride Level 108 Creatinine 1.34 H Direct Bilirubin 0.00 Eosinophils # 0.0 Eosinophils % 0.2 Globulin 2.80 Glucose Level 114 Hematocrit 38.9 L Hemoglobin 11.9 L Indirect Bilirubin 0.7 Lymphocytes # 1.6 Lymphocytes % 12.3 L Magnesium Level 2.1 Mean Corpuscular Hemoglobin 23.2 L Mean Corpuscular Hemoglobin Concent 30.5 L Mean Corpuscular Volume 76.1 L Mean Platelet Volume 8.9 Monocytes # 0.8 Monocytes % 6.3 Neutrophils # 10.5 H Neutrophils % 81.0 H Nucleated Red Blood Cells # 0.0 Nucleated Red Blood Cells % 0.0 Phosphorus Level 3.5 Platelet Count 135 L Potassium Level 4.2 Red Blood Count 5.11 Red Cell Distribution Width 18.6 H Sodium Level 148 H Total Bilirubin 0.7 Total Protein 5.2 L White Blood Count 13.0 H Medications Medications Current Medications Ondansetron HCl (Zofran Inj) 4 mg Q6H PRN IV NAUSEA AND/OR VOMITING; Start at 12:00 Nitroglycerin (Nitroglycerin (Sl Tab) 0.4 Mg) 1 tab Q5M PRN SL CHEST PAIN; Start 06/26/16 at 12:00 Acetaminophen (Tylenol Supp) 650 mg Q4H PRN [place] PAIN LEVEL 1-3 OR FEVER Last administered on 06/28/16at 21:19; Admin Dose 650 MG; Start 06/26/16 at 12:00 Morphine Sulfate (morphine) 2 mg Q4H PRN IV PAIN LEVEL 7-10; Start 06/26/16 at 12:00 Lorazepam (Ativan) 1 mg Q2H PRN IV ANXIETY Last administered on 07/01/16 17:45 ; Admin Dose 1 MG; Start 06/26/16 at 12:00 Heparin Sodium (Porcine) 5000 unit 5,000 unit BID SC Last administered on 08:51; Admin Dose 5,000 UNIT; Start 06/26/16 at 21:00 Cefepime HCl 50 ml @ 100 mls/hr Q12 IVPB Last administered on 07/01/16 08:19; Admin Dose 100 MLS/HR; Start 06/26/16 at 15:00 Levofloxacin/ Dextrose (Levaquin 500mg/ D5W 100 ml (Pmx)) 100 ml @ 100 mls/hr Q24H IVPB Last administered on 07/01/16 14:54; Admin Dose 100 MLS/HR; Start at 15:00 IV Flush 10 ml 10 ml PRN PRN IV IV PROTOCOL; Start 06/27/16 at 16:30 Pantoprazole 80 mg/Sodium Chloride 100 ml @ 10 mls/hr Q10H IV Last administered on 07/01/16 17:13; Admin Dose 10 MLS/HR; Start 06/28/16 at 09:30 Vancomycin HCl/ Sodium Chloride (Vancocin/NS) 250 ml @ 83.333 mls/ hr Q24H IVPB Last administered on 06/30/16at 21:56; Admin Dose 83.333 MLS/HR; Start at 22:00 Metoprolol Tartrate 25 mg 25 mg BID PO Last administered on 07/01/16 08:20; Admin Dose 25 MG; Start 06/28/16 at 21:00 Fentanyl/Dextrose (D5W) 100 ml @ 0 mls/hr TITRATE IV Last administered on 06/30at 14:58; Admin Dose 2.5 MLS/HR; Start 06/29/16 at 15:30 Nystatin (Nystatin Susp) 5 ml TID PO Last administered on 07/01/16 13:23; Admin Dose 5 ML; Start 06/30/16 at 21:00 Potassium Chloride (Potassium Chloride Pwd/Soln) 40 meq DAILY GTB Last administered on 07/01/16 08:19; Admin Dose 40 MEQ; Start 06/30/16 at 20:00 Bumetanide (Bumex) 1 mg Q8 IV Last administered on 07/01/16 13:23; Admin Dose 1 MG; Start 06/30/16 at 22:00 Hydralazine HCl (Apresoline) 10 mg Q8 PO ; Start 07/01/16 at 14:00 YAYA COBOS MD Jul 01, 2016 18:30
--- NOTE | 2016-07-01 19:18 | RADRPT ---
PROCEDURE: XR Chest. CLINICAL INDICATION: Pneumonia, CHF TECHNIQUE: Single frontal chest x-ray. COMPARISON: 06/30/2016 FINDINGS: Endotracheal tube, nasogastric tube and left-sided PICC line remain in place. Hazy opacity at the l eft lung base is grossly stable, likely atelectasis and/or mild pleural effusion. No pneumothorax i s identified. There is stable mild to moderate cardiomegaly. The osseous structures are unremarkab le. IMPRESSION: 1. Lines and tubes remain in place. 2. Stable mild to moderate cardiomegaly. 3. Stable atelectasis and/or mild effusion at the left lung base. RPTAT: QQ .Chris Duke MD, MD Date Time Electronically viewed and signed by .Chris Duke MD, on 07/01/2016 10:32 .R/
--- NOTE | 2016-07-01 19:46 | PN ---
Date/Time of Note Date/Time of Note DATE: 07/01/16 TIME: 19:46 Assessment/Plan Lines/Catheters IV Catheter Type (from Nrs): Saline Lock Merino in Place (from Nrs): Yes Assessment/Plan Chief Complaint/Hosp Course IMPRESSION: 1. Endocarditis involving aortic and mitral valve. 2. Aortic regurgitation. 3. Mitral regurgitation. 4. Cardiomyopathy with diminished ejection fraction. 5. Renal failure. 6. History of drug use. 7. Elevation of the transaminases. 8. Coagulopathy. RECOMMENDATIONS: This patient is not a candidate to undergo surgery at the present time; too high risk for surgical repair. Please continue antibiotics. Discussed with the nursing staff. and the mother Problems: Subjective 24 Hr Interval Summary Constitutional: improved Pain Control: mild Exam/Review of Systems Vital Signs Vitals Vital Signs Date Time Temp Pulse Resp B/P Pulse Ox O2 Delivery O2 Flow Rate FiO2 07/01/16 18:30 129 21 133/67 97 07/01/16 17:30 30 07/01/16 16:00 98.8 07/01/16 00:00 Mechanical Ventilator Intake and Output 06/30/16 06/30/16 07/01/16 15:00 23:00 07:00 Intake Total 180.0 ml 537 ml 272 ml Output Total 300 ml 285 ml 505 ml Balance -120.0 ml 252 ml -233 ml Exam ENMT: mucosa pink and moist, nl external ears & nose, nl lips & teeth, nl nasal mucosa & septum Neck: non-tender, supple Respiratory: clear to auscultation, normal air movement Cardiovascular: nl pulses, regular rate and rhythm Gastrointestinal: nl liver, spleen, non-tender, soft Results Result Diagram: 07/01/1641907/01/16419 KARI ZAMAN MD Jul 01, 2016 19:46
[2016-07-01] MEDS: ACETAMINOPHEN 650 MG SUPP PR PRN (19:57)
--- NOTE | 2016-07-01 21:28 | CONS ---
Date/Time of Note Date/Time of Note DATE: 07/01/16 TIME: 21:25 Assessment/Plan Assessment/Plan Chief Complaint/Hosp Course 1. acute renal failure superimposed on CKD . His renal function is improving . He is non oliguric . Will restart Bumex drip now that his potassium has corrected . 2. 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 CT surgery says that he is not a surgical candidate at this time . I did discuss this with the patients mother . 3. CHF 4. hepatitis C with elevated liver enzymes 5. respiratory failure , ventilator dependent , weening from ventilator is being attempted . 6. hypokalemia , potassium is corrected 7. he is having fever and cultures were done yesterday Problems: Consultation Date/Type/Reason Admit Date/Time Jun 26, 2016 at 11:39 Type of Consultation: ID Referring Provider: JC BROUSSARD MD 24 HR Interval Summary Free Text/Dictation Patient is in the ICU , sedated on a ventilator Subjective hx not possible: pt non-verbal Exam/Review of Systems Vital Signs Vitals Vital Signs Date Time Temp Pulse Resp B/P Pulse Ox O2 Delivery O2 Flow Rate FiO2 07/01/16 18:30 129 21 133/67 97 07/01/16 17:30 30 07/01/16 16:00 98.8 07/01/16 00:00 Mechanical Ventilator Intake and Output 06/30/16 06/30/16 07/01/16 15:00 23:00 07:00 Intake Total 180.0 ml 537 ml 272 ml Output Total 300 ml 285 ml 505 ml Balance -120.0 ml 252 ml -233 ml Exam Constitutional: non-verbal Respiratory: clear to auscultation, normal air movement Cardiovascular: regular rate and rhythm Gastrointestinal: soft Extremities: edema Results Result Diagram: 07/01/16 0420 07/01/16 0420 Results 24 hrs Laboratory Tests Test 07/01/16 04:20 Alanine Aminotransferase (ALT/SGPT) 103 H Albumin 2.4 L Albumin/Globulin Ratio 0.85 Alkaline Phosphatase 52 Anion Gap 15 Aspartate Amino Transf (AST/SGOT) 58 H Basophils # 0.0 Basophils % 0.2 Blood Morphology Comment Blood Urea Nitrogen 58 H Calcium Level 8.1 L Carbon Dioxide Level 29 Chloride Level 108 Creatinine 1.34 H Direct Bilirubin 0.00 Eosinophils # 0.0 Eosinophils % 0.2 Globulin 2.80 Glucose Level 114 Hematocrit 38.9 L Hemoglobin 11.9 L Indirect Bilirubin 0.7 Lymphocytes # 1.6 Lymphocytes % 12.3 L Magnesium Level 2.1 Mean Corpuscular Hemoglobin 23.2 L Mean Corpuscular Hemoglobin Concent 30.5 L Mean Corpuscular Volume 76.1 L Mean Platelet Volume 8.9 Monocytes # 0.8 Monocytes % 6.3 Neutrophils # 10.5 H Neutrophils % 81.0 H Nucleated Red Blood Cells # 0.0 Nucleated Red Blood Cells % 0.0 Phosphorus Level 3.5 Platelet Count 135 L Potassium Level 4.2 Red Blood Count 5.11 Red Cell Distribution Width 18.6 H Sodium Level 148 H Total Bilirubin 0.7 Total Protein 5.2 L White Blood Count 13.0 H Medications Medications Current Medications Ondansetron HCl (Zofran Inj) 4 mg Q6H PRN IV NAUSEA AND/OR VOMITING; Start at 12:00 Nitroglycerin (Nitroglycerin (Sl Tab) 0.4 Mg) 1 tab Q5M PRN SL CHEST PAIN; Start 06/26/16 at 12:00 Acetaminophen (Tylenol Supp) 650 mg Q4H PRN [place] PAIN LEVEL 1-3 OR FEVER Last administered on 07/01/16 19:57; Admin Dose 650 MG; Start 06/26/16 at 12:00 Morphine Sulfate (morphine) 2 mg Q4H PRN IV PAIN LEVEL 7-10; Start 06/26/16 at 12:00 Lorazepam (Ativan) 1 mg Q2H PRN IV ANXIETY Last administered on 07/01/16 17:45 ; Admin Dose 1 MG; Start 06/26/16 at 12:00 Heparin Sodium (Porcine) 5000 unit 5,000 unit BID SC Last administered on 08:51; Admin Dose 5,000 UNIT; Start 06/26/16 at 21:00 Cefepime HCl 50 ml @ 100 mls/hr Q12 IVPB Last administered on 07/01/16 19:57; Admin Dose 100 MLS/HR; Start 06/26/16 at 15:00 Levofloxacin/ Dextrose (Levaquin 500mg/ D5W 100 ml (Pmx)) 100 ml @ 100 mls/hr Q24H IVPB Last administered on 07/01/16 14:54; Admin Dose 100 MLS/HR; Start at 15:00 IV Flush 10 ml 10 ml PRN PRN IV IV PROTOCOL; Start 06/27/16 at 16:30 Pantoprazole 80 mg/Sodium Chloride 100 ml @ 10 mls/hr Q10H IV Last administered on 07/01/16 17:13; Admin Dose 10 MLS/HR; Start 06/28/16 at 09:30 Vancomycin HCl/ Sodium Chloride (Vancocin/NS) 250 ml @ 83.333 mls/ hr Q24H IVPB Last administered on 06/30/16at 21:56; Admin Dose 83.333 MLS/HR; Start at 22:00 Metoprolol Tartrate 25 mg 25 mg BID PO Last administered on 07/01/16 08:20; Admin Dose 25 MG; Start 06/28/16 at 21:00 Fentanyl/Dextrose (D5W) 100 ml @ 0 mls/hr TITRATE IV Last administered on 06/30at 14:58; Admin Dose 2.5 MLS/HR; Start 06/29/16 at 15:30 Nystatin (Nystatin Susp) 5 ml TID PO Last administered on 07/01/16 19:57; Admin Dose 5 ML; Start 06/30/16 at 21:00 Potassium Chloride (Potassium Chloride Pwd/Soln) 40 meq DAILY GTB Last administered on 07/01/16 08:19; Admin Dose 40 MEQ; Start 06/30/16 at 20:00 Bumetanide (Bumex) 1 mg Q8 IV Last administered on 07/01/16 13:23; Admin Dose 1 MG; Start 06/30/16 at 22:00 Hydralazine HCl (Apresoline) 10 mg Q8 PO ; Start 07/01/16 at 14:00 CRESENCIO CASTILLO MD Jul 01, 2016 21:28
[2016-07-01] MEDS: FENTAnyl 1,000 MCG in DEXTROSE 5% 80 ML IV SCH (21:39)
[2016-07-01] MEDS: VANCOMYCIN 1.5 GM in SOD CHLORIDE 0.9% 250 ML IVPB SCH (21:42)
[2016-07-01] MEDS: BUMETANIDE 25 MG in DEXTROSE 5% 150 ML IV SCH (22:29)
[2016-07-02] VITALS (85 sets, daily range): BP systolic 90–117; BP diastolic 43–66; PULSE 80–115; RESP 13–25
[2016-07-02] MEDS: LORAZEPAM 2 MG INJ IV PRN ×2 (03:14→08:33)
[2016-07-02] MEDS: PANTOPRAZOLE IV 80 MG in SOD CHLORIDE 0.9% 100 ML IV SCH ×3 (04:54→23:37)
[2016-07-02 05:19] LABS: BASOPHILS % 0.1 % (0.0-2.0); EOSINOPHILS % 0.3 % (0.0-7.0); HEMATOCRIT 37.2 % (42.0-52.0); HEMOGLOBIN 11.3 g/dl (14.0-18.0); LYMPHOCYTES # 1.4 10^3/ul (0.8-2.9); LYMPHOCYTES % 13.7 % (15.0-51.0); MEAN CORPUSCULAR HEMOGLOBIN 23.2 pg (29.0-33.0); MEAN CORPUSCULAR HGB CONC 30.4 g/dl (32.0-37.0); MEAN CORPUSCULAR VOLUME 76.2 fl (82.0-101.0); MEAN PLATELET VOLUME 9.2 fl (7.4-10.4); MONOCYTE # 0.8 10^3/ul (0.3-0.9); MONOCYTES % 8.2 % (0.0-11.0); NEUTROPHILS % 77.7 % (39.0-77.0); PLATELET COUNT 119 10^3/UL (140-440); RED BLOOD COUNT 4.89 10^6/ul (4.70-6.10); RED CELL DISTRIBUTION WIDTH 18.7 % (11.5-14.5); UNCORRECTED WBC 10.3 10^3/ul (4.8-10.8); WHITE BLOOD COUNT 10.3 10^3/ul (4.8-10.8)
[2016-07-02 05:35] LABS: CONDITION 1; LH ANALYZER COMMENTS 1
[2016-07-02 05:52] LABS: CREATININE 1.51 mg/dl (0.61-1.24)
[2016-07-02 05:53] LABS: CALCIUM 8.2 mg/dl (8.4-10.2)
--- NOTE | 2016-07-02 07:10 | CONS ---
Date/Time of Note Date/Time of Note DATE: 07/02/16 TIME: 07:08 Assessment/Plan Assessment/Plan Chief Complaint/Hosp Course Impression and Recommendations: 1. Microcytic anemia: - f/u occult blood. If occult blood negative, can dc protonix gtt and change to iv bid - f/u iron panel and replete with iv iron if low 2. Transaminitis - 2/2 to sepsis, or possible to viral hepatitis given his IVDU history. Currently transaminase stable - check acute hepatitis panel 3. Encephalopathy - f/u ammonia level to r/o hepatic encephalopathy 4. Shortness of breath - hypoxemic respiratory failure - multifactorial - heart failure acute on chronic - Vent dependent - intubated - f/u pulm recs 5. Sepsis severe 2/2 to pneumonia - tachycardia/leukocytosis - HCAP - IV cefepime, levaquin, vanc - respiratory cultures, monitor trend - improving - follow ID recs 6. CHF - diastolic dysfunction acute on chronic - EF recent shows 40%, D shaped left ventricle - f/u cardiology Problems: Consultation Date/Type/Reason Admit Date/Time Jun 26, 2016 at 11:39 Initial Consult Date Type of Consultation: GI Referring Provider: JC BROUSSARD MD 24 HR Interval Summary Free Text/Dictation opens eyes, appears comfortable, not interactive Exam/Review of Systems Vital Signs Vitals Vital Signs Date Time Temp Pulse Resp B/P Pulse Ox O2 Delivery O2 Flow Rate FiO2 07/02/16 06:15 89 16 105/53 100 07/02/16 05:25 30 07/02/16 04:00 97.8 Mechanical Ventilator Intake and Output 07/01/16 07/01/16 07/02/16 15:00 23:00 07:00 Intake Total 111 ml 528 ml 174 ml Output Total 520 ml 485 ml 1175 ml Balance -409 ml 43 ml -1001 ml Exam Psych: confusion Head: atraumatic, normocephalic Eyes: EOMI, nl conjunctiva, nl lids, nl sclera ENMT: mucosa pink and moist, nl external ears & nose, nl lips & teeth, nl nasal mucosa & septum Neck: non-tender, supple Respiratory: clear to auscultation, normal air movement Cardiovascular: nl pulses, regular rate and rhythm Gastrointestinal: bowel sounds, non-tender, soft Results Result Diagram: 07/02/16 0430 07/02/16 0430 Results 24 hrs Laboratory Tests Test 07/02/16 04:30 Anion Gap 15 Basophils # 0.0 Basophils % 0.1 Blood Morphology Comment Blood Urea Nitrogen 67 H Calcium Level 8.2 L Carbon Dioxide Level 30 Chloride Level 110 Creatinine 1.51 H Eosinophils # 0.0 Eosinophils % 0.3 Glucose Level 122 Hematocrit 37.2 L Hemoglobin 11.3 L Lymphocytes # 1.4 Lymphocytes % 13.7 L Mean Corpuscular Hemoglobin 23.2 L Mean Corpuscular Hemoglobin Concent 30.4 L Mean Corpuscular Volume 76.2 L Mean Platelet Volume 9.2 Monocytes # 0.8 Monocytes % 8.2 Neutrophils # 8.0 H Neutrophils % 77.7 H Nucleated Red Blood Cells # 0.0 Nucleated Red Blood Cells % 0.0 Platelet Count 119 L Potassium Level 4.0 Red Blood Count 4.89 Red Cell Distribution Width 18.7 H Sodium Level 151 H White Blood Count 10.3 # Medications Medications Current Medications Ondansetron HCl (Zofran Inj) 4 mg Q6H PRN IV NAUSEA AND/OR VOMITING; Start at 12:00 Nitroglycerin (Nitroglycerin (Sl Tab) 0.4 Mg) 1 tab Q5M PRN SL CHEST PAIN; Start 06/26/16 at 12:00 Acetaminophen (Tylenol Supp) 650 mg Q4H PRN [place] PAIN LEVEL 1-3 OR FEVER Last administered on 07/01/16 19:57; Admin Dose 650 MG; Start 06/26/16 at 12:00 Morphine Sulfate (morphine) 2 mg Q4H PRN IV PAIN LEVEL 7-10; Start 06/26/16 at 12:00 Lorazepam (Ativan) 1 mg Q2H PRN IV ANXIETY Last administered on 07/02/16 03:14 ; Admin Dose 1 MG; Start 06/26/16 at 12:00 Heparin Sodium (Porcine) 5000 unit 5,000 unit BID SC Last administered on 21:41; Admin Dose 5,000 UNIT; Start 06/26/16 at 21:00 Cefepime HCl 50 ml @ 100 mls/hr Q12 IVPB Last administered on 07/01/16 19:57; Admin Dose 100 MLS/HR; Start 06/26/16 at 15:00 Levofloxacin/ Dextrose (Levaquin 500mg/ D5W 100 ml (Pmx)) 100 ml @ 100 mls/hr Q24H IVPB Last administered on 07/01/16 14:54; Admin Dose 100 MLS/HR; Start at 15:00 IV Flush 10 ml 10 ml PRN PRN IV IV PROTOCOL; Start 06/27/16 at 16:30 Pantoprazole 80 mg/Sodium Chloride 100 ml @ 10 mls/hr Q10H IV Last administered on 07/02/16 04:54; Admin Dose 10 MLS/HR; Start 06/28/16 at 09:30 Vancomycin HCl/ Sodium Chloride (Vancocin/NS) 250 ml @ 83.333 mls/ hr Q24H IVPB Last administered on 07/01/16 21:42; Admin Dose 83.333 MLS/HR; Start at 22:00 Metoprolol Tartrate 25 mg 25 mg BID PO Last administered on 07/01/16 21:42; Admin Dose 25 MG; Start 06/28/16 at 21:00 Fentanyl/Dextrose (D5W) 100 ml @ 0 mls/hr TITRATE IV Last administered on 21:39; Admin Dose 5 MLS/HR; Start 06/29/16 at 15:30 Nystatin (Nystatin Susp) 5 ml TID PO Last administered on 07/01/16 19:57; Admin Dose 5 ML; Start 06/30/16 at 21:00 Potassium Chloride (Potassium Chloride Pwd/Soln) 40 meq DAILY GTB Last administered on 07/01/16 08:19; Admin Dose 40 MEQ; Start 06/30/16 at 20:00 Hydralazine HCl 10 mg 10 mg Q8 PO Last administered on 07/01/16 22:30; Admin Dose 10 MG; Start 07/01/16 at 14:00 Bumetanide/ Dextrose (Bumex/D5W) 250 ml @ 10 mls/hr Q24H IV Last administered on 07/01/16 22:29; Admin Dose 10 MLS/HR; Start 07/01/16 at 21:30 YAYA COBOS MD Jul 02, 2016 07:10
[2016-07-02] MEDS: POTASSIUM CHLORIDE 20 MEQ POWDER FOR ORAL SOLN GTB SCH (07:47)
[2016-07-02] MEDS: CEFEPIME 1GM/50 ML (PMX) 50 ML IVPB SCH ×2 (07:47→21:09)
[2016-07-02] MEDS: NYSTATIN SUSP 5 ML CUP PO SCH ×3 (07:47→21:09)
[2016-07-02] MEDS: HEPARIN 5,000 UNIT/0.5 ML SYG SC SCH ×2 (07:54→21:12)
--- NOTE | 2016-07-02 09:47 | CONS ---
Date/Time of Note Date/Time of Note DATE: 07/02/16 TIME: 09:43 Assessment/Plan Assessment/Plan Chief Complaint/Hosp Course IMPRESSION: 1. Congestive heart failure exacerbation, systolic, acute on chronic with last known EF approximately 40% by echo May 2016. 2. Aortic regurgitation, moderate to severe with possible ongoing vegetation by most recent echo May 2016. 3. Mitral regurgitation, moderate to severe. 4. History of recent endocarditis status post 6-week course of antibiotics. 5. Cardiomyopathy with decreased left ventricular ejection fraction last approximately 40% by echo 06/14/2016. 6. Coagulopathy. 7. Renal failure-slowly improving 8. Hypokalemia 9. Increased LFTs. 10. Increased BNP. 11. Leukocytosis. 12. Mild anemia. 13.Resp failure s/p intubation 14. s/p Code blue 15.DNR Recc: -Tele -Follow volume status closely with ongoing Bumex diuresis -Low dose BB as tolerated only -Per CT surgery not a candidate for valve replacement at this time due to high risk. Would attempt transfer to tertiary care center again as possible -F/U blood cultures -Continue abx's -? neuro eval Problems: Consultation Date/Type/Reason Admit Date/Time Jun 26, 2016 at 11:39 Initial Consult Date 06/27/2016 Type of Consultation: cardiology Reason for Consultation CHF/AR/MR Referring Provider: JC BROUSSARD MD Exam/Review of Systems Vital Signs Vitals Vital Signs Date Time Temp Pulse Resp B/P Pulse Ox O2 Delivery O2 Flow Rate FiO2 07/02/16 08:00 30 07/02/16 08:00 93 07/02/16 07:45 16 102/55 100 07/02/16 07:30 97.8 07/02/16 04:00 Mechanical Ventilator Intake and Output 07/01/16 07/01/16 07/02/16 15:00 23:00 07:00 Intake Total 111 ml 528 ml 194 ml Output Total 520 ml 485 ml 1525 ml Balance -409 ml 43 ml -1331 ml Exam Review of Systems: CONSTITUTIONAL: No fevers, chills. PULMONARY: intubated CARDIOVASCULAR: No obvious chest pain/palpitations GASTROINTESTINAL: No nausea/vomiting. GENITOURINARY: No hematuria/dysuria. MUSCULOSKELETAL: No obvious myagias/arthalgias. PSYCHIATRIC: No documented depression. NEUROLOGIC: Encephlaopathy Constitutional: other (sedated) Psych: no complaints Head: normocephalic ENMT: mucosa pink and moist Neck: jvd (9 cm water), supple Respiratory: diminished breath sounds (at bases/B) Cardiovascular: regular rate and rhythm Gastrointestinal: non-tender, soft Musculoskeletal: muscle tone Extremities: normal pulses Neurological: other (sedated) Results Result Diagram: 07/02/16 0430 07/02/16 0430 Results 24 hrs Laboratory Tests Test 07/02/16 04:30 Anion Gap 15 Basophils # 0.0 Basophils % 0.1 Blood Morphology Comment Blood Urea Nitrogen 67 H Calcium Level 8.2 L Carbon Dioxide Level 30 Chloride Level 110 Creatinine 1.51 H Eosinophils # 0.0 Eosinophils % 0.3 Glucose Level 122 Hematocrit 37.2 L Hemoglobin 11.3 L Lymphocytes # 1.4 Lymphocytes % 13.7 L Mean Corpuscular Hemoglobin 23.2 L Mean Corpuscular Hemoglobin Concent 30.4 L Mean Corpuscular Volume 76.2 L Mean Platelet Volume 9.2 Monocytes # 0.8 Monocytes % 8.2 Neutrophils # 8.0 H Neutrophils % 77.7 H Nucleated Red Blood Cells # 0.0 Nucleated Red Blood Cells % 0.0 Platelet Count 119 L Potassium Level 4.0 Red Blood Count 4.89 Red Cell Distribution Width 18.7 H Sodium Level 151 H White Blood Count 10.3 # Medications Medications Current Medications Ondansetron HCl (Zofran Inj) 4 mg Q6H PRN IV NAUSEA AND/OR VOMITING; Start at 12:00 Nitroglycerin (Nitroglycerin (Sl Tab) 0.4 Mg) 1 tab Q5M PRN SL CHEST PAIN; Start 06/26/16 at 12:00 Acetaminophen (Tylenol Supp) 650 mg Q4H PRN IN PAIN LEVEL 1-3 OR FEVER Last administered on 07/01/16 19:57; Admin Dose 650 MG; Start 06/26/16 at 12:00 Morphine Sulfate (morphine) 2 mg Q4H PRN IV PAIN LEVEL 7-10; Start 06/26/16 at 12:00 Lorazepam (Ativan) 1 mg Q2H PRN IV ANXIETY Last administered on 07/02/16 08:33 ; Admin Dose 1 MG; Start 06/26/16 at 12:00 Heparin Sodium (Porcine) 5000 unit 5,000 unit BID SC Last administered on 07:54; Admin Dose 5,000 UNIT; Start 06/26/16 at 21:00 Cefepime HCl 50 ml @ 100 mls/hr Q12 IVPB Last administered on 07/02/16 07:47; Admin Dose 100 MLS/HR; Start 06/26/16 at 15:00 Levofloxacin/ Dextrose (Levaquin 500mg/ D5W 100 ml (Pmx)) 100 ml @ 100 mls/hr Q24H IVPB Last administered on 07/01/16 14:54; Admin Dose 100 MLS/HR; Start at 15:00 IV Flush 10 ml 10 ml PRN PRN IV IV PROTOCOL; Start 06/27/16 at 16:30 Pantoprazole 80 mg/Sodium Chloride 100 ml @ 10 mls/hr Q10H IV Last administered on 07/02/16 04:54; Admin Dose 10 MLS/HR; Start 06/28/16 at 09:30 Vancomycin HCl/ Sodium Chloride (Vancocin/NS) 250 ml @ 83.333 mls/ hr Q24H IVPB Last administered on 07/01/16 21:42; Admin Dose 83.333 MLS/HR; Start at 22:00 Metoprolol Tartrate 25 mg 25 mg BID PO Last administered on 07/01/16 21:42; Admin Dose 25 MG; Start 06/28/16 at 21:00 Fentanyl/Dextrose (D5W) 100 ml @ 0 mls/hr TITRATE IV Last administered on 21:39; Admin Dose 5 MLS/HR; Start 06/29/16 at 15:30 Nystatin (Nystatin Susp) 5 ml TID PO Last administered on 07/02/16 07:47; Admin Dose 5 ML; Start 06/30/16 at 21:00 Potassium Chloride (Potassium Chloride Pwd/Soln) 40 meq DAILY GTB Last administered on 07/02/16 07:47; Admin Dose 40 MEQ; Start 06/30/16 at 20:00 Hydralazine HCl 10 mg 10 mg Q8 PO Last administered on 07/01/16 22:30; Admin Dose 10 MG; Start 07/01/16 at 14:00 Bumetanide 25 mg/ Dextrose 250 ml @ 10 mls/hr Q24H IV Last administered on 07/01t 22:29; Admin Dose 10 MLS/HR; Start 07/01/16 at 21:30 Dextrose (D5W) 1,000 ml @ 120 mls/hr Q8H20M IV ; Start 07/02/16 at 09:30 SEVERO STUBBS Jul 02, 2016 09:47
--- NOTE | 2016-07-02 10:28 | CONS ---
DATE OF ADMISSION: 06/26/2016 DATE OF CONSULTATION: TYPE OF CONSULTATION: Nephrology. The patient remains sedated in the ICU while intubated. He is diuresing vigorously with continued re solution of his lower extremity edema, and remains hemodynamically stable. PHYSICAL EXAMINATION: VITAL SIGNS: He is afebrile, blood pressure 102/60, heart rate is 88 in a sinus rhythm, respiration s are controlled on the vent. O2 saturation is 100% on FIO2 of 30%. SKIN: Multiple tattoos. No other lesions. HEAD: Appears normocephalic. PHARYNX: ET tube in place. LUNGS: Clear. HEART: S1, S2. II/ systolic murmur. ABDOMEN: Soft. EXTREMITIES: 2+ lower extremity edema. LABORATORY DATA: Sodium 151, potassium 4.0, chloride 110, bicarbonate 30, BUN 67, creatinine 1.51, glucose 122, calcium is 8.2. White count 10.3, hemoglobin 11.3, hematocrit 37.2, platelet count 119 ,000. A chest x-ray that showed the ET tube, NG tube, a PICC line in place, small effusion on the left. PROBLEM LIST: 1. Chronic kidney disease, creatinine currently stable and diuresing nicely on the IV Bumex. 2. Lower extremity edema, slowly resolving with diuresis. 3. Mild hypernatremia due to above. 4. SBE with both mitral and aortic valve vegetations. 5. Congestive heart failure, resolving. 6. Hepatitis C with mildly elevated LFTs. 7. Respiratory failure, currently intubated. RECOMMENDATIONS: 1. Continue diuresis. 2. Will add free water. 3. Followup labs in the morning. Dictated By: RAKESH ADAMES MD, MM/BRANDO Conf#: [id number] DID#: [id number]
--- NOTE | 2016-07-02 10:55 | CONS ---
Date/Time of Note Date/Time of Note DATE: 07/02/16 TIME: 10:54 Consult Date/Type/Reason Admit Date/Time Jun 26, 2016 at 11:39 Type of Consultation: Pulm Ordering Provider: JC BROUSSARD MD Subjective Intubated, sedated on fentanyl, comfortable. Objective Vital Signs Date Time Temp Pulse Resp B/P Pulse Ox O2 Delivery O2 Flow Rate FiO2 07/02/16 10:30 81 16 99/53 100 07/02/16 08:00 30 07/02/16 07:30 97.8 07/02/16 04:00 Mechanical Ventilator Intake and Output 07/01/16 07/01/16 07/02/16 15:00 23:00 07:00 Intake Total 111 ml 528 ml 194 ml Output Total 520 ml 485 ml 1525 ml Balance -409 ml 43 ml -1331 ml PHYSICAL EXAMINATION: GENERAL: A chronically ill-appearing gentleman, intubated on mechanical ventilation, comfortable at rest, no acute distress. VITAL SIGNS: As above NECK: Supple. No JVD or lymphadenopathy. CARDIAC: S1, S2, no added sounds or murmurs. CHEST: Diminished air entry bilaterally. ABDOMEN: Soft, nontender. No guarding or rebound. EXTREMITIES: No cyanosis, clubbing, edema. NEUROLOGIC: Unable to assess. Results/Medications Result Diagram: 07/02/16 0430 07/02/16 0430 Results 24 hrs Laboratory Tests Test 07/02/16 04:30 Anion Gap 15 Basophils # 0.0 Basophils % 0.1 Blood Morphology Comment Blood Urea Nitrogen 67 H Calcium Level 8.2 L Carbon Dioxide Level 30 Chloride Level 110 Creatinine 1.51 H Eosinophils # 0.0 Eosinophils % 0.3 Glucose Level 122 Hematocrit 37.2 L Hemoglobin 11.3 L Lymphocytes # 1.4 Lymphocytes % 13.7 L Mean Corpuscular Hemoglobin 23.2 L Mean Corpuscular Hemoglobin Concent 30.4 L Mean Corpuscular Volume 76.2 L Mean Platelet Volume 9.2 Monocytes # 0.8 Monocytes % 8.2 Neutrophils # 8.0 H Neutrophils % 77.7 H Nucleated Red Blood Cells # 0.0 Nucleated Red Blood Cells % 0.0 Platelet Count 119 L Potassium Level 4.0 Red Blood Count 4.89 Red Cell Distribution Width 18.7 H Sodium Level 151 H White Blood Count 10.3 # Medications Current Medications Ondansetron HCl (Zofran Inj) 4 mg Q6H PRN IV NAUSEA AND/OR VOMITING; Start at 12:00 Nitroglycerin (Nitroglycerin (Sl Tab) 0.4 Mg) 1 tab Q5M PRN SL CHEST PAIN; Start 06/26/16 at 12:00 Acetaminophen (Tylenol Supp) 650 mg Q4H PRN [place] PAIN LEVEL 1-3 OR FEVER Last administered on 07/01/16 19:57; Admin Dose 650 MG; Start 06/26/16 at 12:00 Morphine Sulfate (morphine) 2 mg Q4H PRN IV PAIN LEVEL 7-10; Start 06/26/16 at 12:00 Lorazepam (Ativan) 1 mg Q2H PRN IV ANXIETY Last administered on 07/02/16 08:33 ; Admin Dose 1 MG; Start 06/26/16 at 12:00 Heparin Sodium (Porcine) 5000 unit 5,000 unit BID SC Last administered on 07:54; Admin Dose 5,000 UNIT; Start 06/26/16 at 21:00 Cefepime HCl 50 ml @ 100 mls/hr Q12 IVPB Last administered on 07/02/16 07:47; Admin Dose 100 MLS/HR; Start 06/26/16 at 15:00 Levofloxacin/ Dextrose (Levaquin 500mg/ D5W 100 ml (Pmx)) 100 ml @ 100 mls/hr Q24H IVPB Last administered on 07/01/16 14:54; Admin Dose 100 MLS/HR; Start at 15:00 IV Flush 10 ml 10 ml PRN PRN IV IV PROTOCOL; Start 06/27/16 at 16:30 Pantoprazole 80 mg/Sodium Chloride 100 ml @ 10 mls/hr Q10H IV Last administered on 07/02/16 04:54; Admin Dose 10 MLS/HR; Start 06/28/16 at 09:30 Vancomycin HCl/ Sodium Chloride (Vancocin/NS) 250 ml @ 83.333 mls/ hr Q24H IVPB Last administered on 07/01/16 21:42; Admin Dose 83.333 MLS/HR; Start at 22:00 Metoprolol Tartrate 25 mg 25 mg BID PO Last administered on 07/01/16 21:42; Admin Dose 25 MG; Start 06/28/16 at 21:00 Fentanyl/Dextrose (D5W) 100 ml @ 0 mls/hr TITRATE IV Last administered on 21:39; Admin Dose 5 MLS/HR; Start 06/29/16 at 15:30 Nystatin (Nystatin Susp) 5 ml TID PO Last administered on 07/02/16 07:47; Admin Dose 5 ML; Start 06/30/16 at 21:00 Potassium Chloride (Potassium Chloride Pwd/Soln) 40 meq DAILY GTB Last administered on 07/02/16 07:47; Admin Dose 40 MEQ; Start 06/30/16 at 20:00 Hydralazine HCl 10 mg 10 mg Q8 PO Last administered on 07/01/16 22:30; Admin Dose 10 MG; Start 07/01/16 at 14:00 Bumetanide 25 mg/ Dextrose 250 ml @ 10 mls/hr Q24H IV Last administered on 07/01 22:29; Admin Dose 10 MLS/HR; Start 07/01/16 at 21:30 Dextrose (D5W) 1,000 ml @ 120 mls/hr Q8H20M IV ; Start 07/02/16 at 09:30 Assessment/Plan Chief Complaint/Hosp Course IMPRESSION AND PLAN: 1. Hypoxemic respiratory failure. Secondary to congestive cardiac failure 2. Possible component of community-acquired pneumonia. 3. Bacterial endocarditis. 4. History of intravenous drug abuse. 5. History of pulmonary embolus. 6. Renal insufficiency The patient will require: 1. Continued mechanical ventilation. CPAP trial as tolerated 2. Diuresis if tolerated. 3. Broad-spectrum antibiotics. 4. DVT and GI prophylaxis. 5. d/w cardiology, agree with transfer to tertiary care center Problems: ASAD DAS MD, [facility] Jul 02, 2016 10:55
[2016-07-02] MEDS: METOPROLOL 25 MG TAB PO SCH ×2 (11:00→21:10)
[2016-07-02] MEDS: DEXTROSE 5% 1,000 ML IV SCH ×2 (11:06→17:56)
--- NOTE | 2016-07-02 12:12 | CONS ---
Date/Time of Note Date/Time of Note DATE: 07/02/16 TIME: 12:10 Assessment/Plan Assessment/Plan Chief Complaint/Hosp Course ID PROGRESS NOTE TOTAL ABX DAY # => Vanco IV,Cefepime, Levaquin 24H INTERVAL SUMMARY * Clinically status quo -- mom at bedside, no new issues, No fevers, poor prognosis PHYSICAL EXAMINATION: GENERAL: 36 yo M, VSS, NAD, Vented HEENT: ETT-> Secure to Vent NECK: Supple, trachea midline. CHEST: Rise symmetrical. Scattered coarse BS HEART: NSR on tele ABDOMEN: Soft EXTREMITIES: Without cyanosis. Bilateral edema. ID ASSESSMENT: 36 yo M w/PMHx IVDU w/(+)HCV, (-)HIV screen admit with: 1. Acute hypoxemic respiratory failure secondary to congestive heart failure exacerbation. 2. Possible aspiration pneumonia versus community-acquired pneumonia. 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 Aortic and mitral valve vegetations with a history of alpha hemolytic streptococcus septicemia in March 2016. 4. Acute CHF exacerbation due to Cardiomyopathy with diminished ejection fraction w/ Aortic & Mitral regurgitation. 5. Transaminitis 6. Acute renal failure 7. Anemia. 8. Coagulopathy INVASIVES: ETT, NG tube, Merino, PICC line. CURRENT ABX: Vancomycin IV, Cefepime, Levaquin s/p Ceftriaxone ID RECOMMENDATIONS: CONTINUE Current ABX PER NOTES: The patient is not a surgical candidate for valve replacement at present time. 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 . . Problems: Consultation Date/Type/Reason Admit Date/Time Jun 26, 2016 at 11:39 Type of Consultation: ID Referring Provider: JC BROUSSARD MD Exam/Review of Systems Vital Signs Vitals Vital Signs Date Time Temp Pulse Resp B/P Pulse Ox O2 Delivery O2 Flow Rate FiO2 07/02/16 11:15 83 16 98/51 99 07/02/16 08:00 30 07/02/16 07:30 97.8 07/02/16 04:00 Mechanical Ventilator Intake and Output 07/01/16 07/01/16 07/02/16 15:00 23:00 07:00 Intake Total 111 ml 528 ml 194 ml Output Total 520 ml 485 ml 1525 ml Balance -409 ml 43 ml -1331 ml Results Result Diagram: 07/02/16 0430 07/02/16 0430 Results 24 hrs Laboratory Tests Test 07/02/16 04:30 Anion Gap 15 Basophils # 0.0 Basophils % 0.1 Blood Morphology Comment Blood Urea Nitrogen 67 H Calcium Level 8.2 L Carbon Dioxide Level 30 Chloride Level 110 Creatinine 1.51 H Eosinophils # 0.0 Eosinophils % 0.3 Glucose Level 122 Hematocrit 37.2 L Hemoglobin 11.3 L Lymphocytes # 1.4 Lymphocytes % 13.7 L Mean Corpuscular Hemoglobin 23.2 L Mean Corpuscular Hemoglobin Concent 30.4 L Mean Corpuscular Volume 76.2 L Mean Platelet Volume 9.2 Monocytes # 0.8 Monocytes % 8.2 Neutrophils # 8.0 H Neutrophils % 77.7 H Nucleated Red Blood Cells # 0.0 Nucleated Red Blood Cells % 0.0 Platelet Count 119 L Potassium Level 4.0 Red Blood Count 4.89 Red Cell Distribution Width 18.7 H Sodium Level 151 H White Blood Count 10.3 # Medications Medications Current Medications Ondansetron HCl (Zofran Inj) 4 mg Q6H PRN IV NAUSEA AND/OR VOMITING; Start at 12:00 Nitroglycerin (Nitroglycerin (Sl Tab) 0.4 Mg) 1 tab Q5M PRN SL CHEST PAIN; Start 06/26/16 at 12:00 Acetaminophen (Tylenol Supp) 650 mg Q4H PRN [place] PAIN LEVEL 1-3 OR FEVER Last administered on 07/01/16 19:57; Admin Dose 650 MG; Start 06/26/16 at 12:00 Morphine Sulfate (morphine) 2 mg Q4H PRN IV PAIN LEVEL 7-10; Start 06/26/16 at 12:00 Lorazepam (Ativan) 1 mg Q2H PRN IV ANXIETY Last administered on 07/02/16 08:33 ; Admin Dose 1 MG; Start 06/26/16 at 12:00 Heparin Sodium (Porcine) 5000 unit 5,000 unit BID SC Last administered on 07:54; Admin Dose 5,000 UNIT; Start 06/26/16 at 21:00 Cefepime HCl 50 ml @ 100 mls/hr Q12 IVPB Last administered on 07/02/16 07:47; Admin Dose 100 MLS/HR; Start 06/26/16 at 15:00 Levofloxacin/ Dextrose (Levaquin 500mg/ D5W 100 ml (Pmx)) 100 ml @ 100 mls/hr Q24H IVPB Last administered on 07/01/16 14:54; Admin Dose 100 MLS/HR; Start at 15:00 IV Flush 10 ml 10 ml PRN PRN IV IV PROTOCOL; Start 06/27/16 at 16:30 Pantoprazole 80 mg/Sodium Chloride 100 ml @ 10 mls/hr Q10H IV Last administered on 07/02/16 04:54; Admin Dose 10 MLS/HR; Start 06/28/16 at 09:30 Vancomycin HCl/ Sodium Chloride (Vancocin/NS) 250 ml @ 83.333 mls/ hr Q24H IVPB Last administered on 07/01/16 21:42; Admin Dose 83.333 MLS/HR; Start at 22:00 Metoprolol Tartrate 25 mg 25 mg BID PO Last administered on 07/01/16 21:42; Admin Dose 25 MG; Start 06/28/16 at 21:00 Fentanyl/Dextrose (D5W) 100 ml @ 0 mls/hr TITRATE IV Last administered on 21:39; Admin Dose 5 MLS/HR; Start 06/29/16 at 15:30 Nystatin (Nystatin Susp) 5 ml TID PO Last administered on 07/02/16 07:47; Admin Dose 5 ML; Start 06/30/16 at 21:00 Potassium Chloride (Potassium Chloride Pwd/Soln) 40 meq DAILY GTB Last administered on 07/02/16 07:47; Admin Dose 40 MEQ; Start 06/30/16 at 20:00 Hydralazine HCl 10 mg 10 mg Q8 PO Last administered on 07/01/16 22:30; Admin Dose 10 MG; Start 07/01/16 at 14:00 Bumetanide 25 mg/ Dextrose 250 ml @ 10 mls/hr Q24H IV Last administered on 07/01 22:29; Admin Dose 10 MLS/HR; Start 07/01/16 at 21:30 Dextrose (D5W) 1,000 ml @ 120 mls/hr Q8H20M IV Last administered on 07/02/16t 11:06; Admin Dose 120 MLS/HR; Start 07/02/16 at 09:30 MARIO MCCAIN NP Jul 02, 2016 12:12
--- NOTE | 2016-07-02 14:03 | PN ---
Date/Time of Note Date/Time of Note DATE: 07/02/16 TIME: 13:52 Assessment/Plan VTE Prophylaxis VTE Prophylaxis Intervention: heparin Lines/Catheters IV Catheter Type (from Nrs): Saline Lock Urinary Cath still in place: Yes Reason Cath still needed: urinary retention Assessment/Plan Chief Complaint/Hosp Course Assessment/Plan: 36 yo unfortunate male with a past medical history of Bacterial Endocarditis finished 6 week course of IV antibiotics, Drug abuse, Nicotine abuse, Right popliteal thrombosis, PE on Eliquis, Microcytic anemia, CHF - diastolic, who came for worsening shortness of breath. 1. Shortness of breath - hypoxemic respiratory failure - multifactorial - heart failure acute on chronic - Vent dependent - intubated - f/u pulm recs - for CPAP trial today 2. Sepsis - severe 2/2 to pneumonia (HCAP) + endocarditis - tachycardia/ leukocytosis - WBC improved - per ID, continue IV cefepime, levaquin, vanc - f/u respiratory cultures, monitor trend - improving - appreciate ID recs - improving 3. CHF - diastolic dysfunction acute on chronic - EF recent shows 40%, D shaped left ventricle, - f/u CV rec's - bumex drip as per renal, monitor UO 4. Hypernatremia - appreciate nephrology consult - improving - added on D5W IVF's as well today 5. BESSIE - acute on chronic - 2/2 #2 - worsening - ATN with AIN component - improving 6. Transaminitis - 2/2 to sepsis, or possible atypical pneumonia, monitor trend - improving 7. PE - heparin 8. Right popliteal thrombus - pt presently on heparin sub Q at this time 9. Microcytic anemia - monitor H/H, transfuse if hgb < 8 g/dL 10. GI ppx - protonix drip for now, f/u GI rec's 11. DVT ppx - heparin dispo - f/u recs, palliative care consult - will monitor functional status - overall prognosis is poor - DNR/DNI - possible conversion to comfort care measures if deteriorating condition - consider surgical intervention critical care time today = 45 min Problems: Exam/Review of Systems Vital Signs Vitals Vital Signs Date Time Temp Pulse Resp B/P Pulse Ox O2 Delivery O2 Flow Rate FiO2 07/02/16 12:45 87 16 102/53 100 07/02/16 12:00 98.0 07/02/16 08:00 30 07/02/16 04:00 Mechanical Ventilator Intake and Output 07/01/16 07/01/16 07/02/16 15:00 23:00 07:00 Intake Total 111 ml 528 ml 194 ml Output Total 520 ml 485 ml 1525 ml Balance -409 ml 43 ml -1331 ml Exam Gen Evelyn: sedated/intubated HEENT: NC/AT, ETT in place NECK: supple, no thyromegaly THORAX: symmetrical, no obvious deformities CV: S1S2, RRR, III/ holosystolic murmur best heard over mitral area - blowing type Lungs: Coarse breath sounds, scattered wheezing, bibasilar crackles Abd: soft, NT/ND, +BS, no rebound, no guarding, neg HSM : scrotal edema, with some skin sloughing noted EXT: 2+ bilateral upper/lower extremities edema, no ecchymosis, no clubbing, FROM, mild cyanosis noted at phalanges bilaterally lower extremities Neuro: cannot assess - intubated/sedated Psych: agitated Results Result Diagram: 07/02/16 0430 07/02/16 0430 Results 24 hrs Laboratory Tests Test 07/02/16 04:30 Anion Gap 15 Basophils # 0.0 Basophils % 0.1 Blood Morphology Comment Blood Urea Nitrogen 67 H Calcium Level 8.2 L Carbon Dioxide Level 30 Chloride Level 110 Creatinine 1.51 H Eosinophils # 0.0 Eosinophils % 0.3 Glucose Level 122 Hematocrit 37.2 L Hemoglobin 11.3 L Lymphocytes # 1.4 Lymphocytes % 13.7 L Mean Corpuscular Hemoglobin 23.2 L Mean Corpuscular Hemoglobin Concent 30.4 L Mean Corpuscular Volume 76.2 L Mean Platelet Volume 9.2 Monocytes # 0.8 Monocytes % 8.2 Neutrophils # 8.0 H Neutrophils % 77.7 H Nucleated Red Blood Cells # 0.0 Nucleated Red Blood Cells % 0.0 Platelet Count 119 L Potassium Level 4.0 Red Blood Count 4.89 Red Cell Distribution Width 18.7 H Sodium Level 151 H White Blood Count 10.3 # Medications Medications Current Medications Ondansetron HCl (Zofran Inj) 4 mg Q6H PRN IV NAUSEA AND/OR VOMITING; Start at 12:00 Nitroglycerin (Nitroglycerin (Sl Tab) 0.4 Mg) 1 tab Q5M PRN SL CHEST PAIN; Start 06/26/16 at 12:00 Acetaminophen (Tylenol Supp) 650 mg Q4H PRN [place] PAIN LEVEL 1-3 OR FEVER Last administered on 07/01/16 19:57; Admin Dose 650 MG; Start 06/26/16 at 12:00 Morphine Sulfate (morphine) 2 mg Q4H PRN IV PAIN LEVEL 7-10; Start 06/26/16 at 12:00 Lorazepam (Ativan) 1 mg Q2H PRN IV ANXIETY Last administered on 07/02/16 08:33 ; Admin Dose 1 MG; Start 06/26/16 at 12:00 Heparin Sodium (Porcine) 5000 unit 5,000 unit BID SC Last administered on 07:54; Admin Dose 5,000 UNIT; Start 06/26/16 at 21:00 Cefepime HCl 50 ml @ 100 mls/hr Q12 IVPB Last administered on 07/02/16 07:47; Admin Dose 100 MLS/HR; Start 06/26/16 at 15:00 Levofloxacin/ Dextrose (Levaquin 500mg/ D5W 100 ml (Pmx)) 100 ml @ 100 mls/hr Q24H IVPB Last administered on 07/01/16 14:54; Admin Dose 100 MLS/HR; Start at 15:00 IV Flush 10 ml 10 ml PRN PRN IV IV PROTOCOL; Start 06/27/16 at 16:30 Pantoprazole 80 mg/Sodium Chloride 100 ml @ 10 mls/hr Q10H IV Last administered on 07/02/16 04:54; Admin Dose 10 MLS/HR; Start 06/28/16 at 09:30 Vancomycin HCl/ Sodium Chloride (Vancocin/NS) 250 ml @ 83.333 mls/ hr Q24H IVPB Last administered on 07/01/16 21:42; Admin Dose 83.333 MLS/HR; Start at 22:00 Metoprolol Tartrate 25 mg 25 mg BID PO Last administered on 07/01/16 21:42; Admin Dose 25 MG; Start 06/28/16 at 21:00 Fentanyl/Dextrose (D5W) 100 ml @ 0 mls/hr TITRATE IV Last administered on 21:39; Admin Dose 5 MLS/HR; Start 06/29/16 at 15:30 Nystatin (Nystatin Susp) 5 ml TID PO Last administered on 07/02/16 13:38; Admin Dose 5 ML; Start 06/30/16 at 21:00 Potassium Chloride (Potassium Chloride Pwd/Soln) 40 meq DAILY GTB Last administered on 07/02/16 07:47; Admin Dose 40 MEQ; Start 06/30/16 at 20:00 Hydralazine HCl 10 mg 10 mg Q8 PO Last administered on 07/01/16 22:30; Admin Dose 10 MG; Start 07/01/16 at 14:00 Bumetanide 25 mg/ Dextrose 250 ml @ 10 mls/hr Q24H IV Last administered on 07/01 22:29; Admin Dose 10 MLS/HR; Start 07/01/16 at 21:30 Dextrose (D5W) 1,000 ml @ 120 mls/hr Q8H20M IV Last administered on 07/02/16 11:06; Admin Dose 120 MLS/HR; Start 07/02/16 at 09:30 ROBERTO DAVISON Jul 02, 2016 14:02
[2016-07-02 16:02] LABS: AADO2 Arterial 45.8 mmHg (7.0-24.0); Allen Test ACCEPTAB; Arterial Base Excess 6.2 mmol/L (-3.0-3); Arterial COHb 0.6 % (0.0-3.0); Arterial Fraction of Oxyhgb 97.4 % (93.0-99.0); Arterial HCO3 30.5 mmol/L (22.0-26.0); Arterial MetHb 0.3 % (0.0-1.5); Blood Gas PS 10; MODE VENT - CPAP
[2016-07-02] MEDS: LEVOFLOXACIN 500MG/D5W (PMX) 100 ML IVPB SCH (16:52)
--- NOTE | 2016-07-02 17:53 | PN ---
Date/Time of Note Date/Time of Note DATE: 07/02/16 TIME: 17:52 Assessment/Plan Lines/Catheters IV Catheter Type (from Nrs): Saline Lock Merino in Place (from Nrs): Yes Assessment/Plan Chief Complaint/Hosp Course IMPRESSION: 1. Endocarditis involving aortic and mitral valve. 2. Aortic regurgitation. 3. Mitral regurgitation. 4. Cardiomyopathy with diminished ejection fraction. 5. Renal failure. 6. History of drug use. 7. Elevation of the transaminases. 8. Coagulopathy. RECOMMENDATIONS: This patient is not a candidate to undergo surgery at the present time; too high risk for surgical repair. Please continue antibiotics. Discussed with the nursing staff. and the mother Problems: Subjective 24 Hr Interval Summary Constitutional: improved Pain Control: mild Exam/Review of Systems Vital Signs Vitals Vital Signs Date Time Temp Pulse Resp B/P Pulse Ox O2 Delivery O2 Flow Rate FiO2 07/02/16 17:00 102 17 106/51 96 07/02/16 16:00 98.8 07/02/16 13:25 30 07/02/16 04:00 Mechanical Ventilator Intake and Output 07/01/16 07/01/16 07/02/16 15:00 23:00 07:00 Intake Total 111 ml 528 ml 194 ml Output Total 520 ml 485 ml 1525 ml Balance -409 ml 43 ml -1331 ml Exam ENMT: mucosa pink and moist, nl external ears & nose, nl lips & teeth, nl nasal mucosa & septum Neck: non-tender, supple Respiratory: clear to auscultation, normal air movement Cardiovascular: nl pulses, regular rate and rhythm Gastrointestinal: nl liver, spleen, non-tender, soft Results Result Diagram: 07/02/16 0430 07/02/16 0430 KARI ZAMAN MD Jul 02, 2016 17:53
[2016-07-02] MEDS: BUMETANIDE 25 MG in DEXTROSE 5% 150 ML IV SCH (21:10)
[2016-07-02] MEDS: VANCOMYCIN 1.5 GM in SOD CHLORIDE 0.9% 250 ML IVPB SCH (21:13)
[2016-07-02 21:52] LABS: POTASSIUM 3.2 mmol/L (3.5-5.1)
[2016-07-02 21:55] LABS: CREATININE 1.34 mg/dl (0.61-1.24)
[2016-07-02 21:56] LABS: CALCIUM 8.1 mg/dl (8.4-10.2)
[2016-07-02] MEDS ORDERED: POTASSIUM CHLORIDE 250 ML IVPB ONE (23:30)
[2016-07-03] VITALS (47 sets, daily range): BP systolic 94–118; BP diastolic 47–65; PULSE 95–116; RESP 13–29
[2016-07-03 04:29] LABS: HAAIG REFLEX REFLEX FILED
[2016-07-03] MEDS: DEXTROSE 5% 1,000 ML IV SCH ×5 (04:41→21:54)
[2016-07-03] MEDS: FENTAnyl 1,000 MCG in DEXTROSE 5% 80 ML IV SCH ×2 (04:49→23:27)
[2016-07-03 04:56] LABS: POTASSIUM 3.3 mmol/L (3.5-5.1)
[2016-07-03 04:59] LABS: CALCIUM 8.1 mg/dl (8.4-10.2); CREATININE 1.24 mg/dl (0.61-1.24)
[2016-07-03 05:00] LABS: IRON 13 ug/dl (35-150)
[2016-07-03 05:10] LABS: TOTAL IRON BINDING CAPACITY 311 ug/dl (241-421)
[2016-07-03] MEDS: POTASSIUM CHLORIDE 50 ML IVPB PRN ×4 (05:42→14:02)
[2016-07-03 05:50] LABS: HEMATOCRIT 36.4 % (42.0-52.0); HEMOGLOBIN 11.2 g/dl (14.0-18.0); MEAN CORPUSCULAR HEMOGLOBIN 23.3 pg (29.0-33.0); MEAN CORPUSCULAR HGB CONC 30.9 g/dl (32.0-37.0); MEAN CORPUSCULAR VOLUME 75.3 fl (82.0-101.0); MEAN PLATELET VOLUME 9.5 fl (7.4-10.4); PLATELET COUNT 117 10^3/UL (140-440); RED BLOOD COUNT 4.83 10^6/ul (4.70-6.10); RED CELL DISTRIBUTION WIDTH 19.6 % (11.5-14.5); UNCORRECTED WBC 11.3 10^3/ul (4.8-10.8); WHITE BLOOD COUNT 11.3 10^3/ul (4.8-10.8)
[2016-07-03 05:51] LABS: HEPATITIS B CORE ANTIBODY NEGATIVE (NEGATIVE)
[2016-07-03 05:52] LABS: CONDITION 1; LH ANALYZER COMMENTS 1
[2016-07-03 08:03] LABS: AADO2 Arterial 41.5 mmHg (7.0-24.0); Allen Test ACCEPTAB; Arterial Base Excess 6.8 mmol/L (-3.0-3); Arterial COHb 0.6 % (0.0-3.0); Arterial HCO3 29.1 mmol/L (22.0-26.0); Arterial MetHb 0.2 % (0.0-1.5); Arterial Total Hemglobin 12.9 g/dl (12.0-18.0); MODE VENT - AC
[2016-07-03] MEDS: POTASSIUM CHLORIDE 20 MEQ POWDER FOR ORAL SOLN GTB SCH ×2 (08:20→17:36)
[2016-07-03] MEDS: NYSTATIN SUSP 5 ML CUP PO SCH ×3 (08:20→20:43)
[2016-07-03] MEDS: CEFEPIME 1GM/50 ML (PMX) 50 ML IVPB SCH ×2 (08:20→20:42)
[2016-07-03] MEDS: METOPROLOL 25 MG TAB PO SCH ×2 (08:21→20:45)
--- NOTE | 2016-07-03 08:24 | CONS ---
Date/Time of Note Date/Time of Note DATE: 07/03/16 TIME: 08:20 Assessment/Plan Assessment/Plan Chief Complaint/Hosp Course 1. acute renal failure superimposed on CKD . His renal function is improving . He is non oliguric . Will stop Bumex drip until his potassium has corrected . He did have a good diuresis with Bumex drip . 2. 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 CT surgery says that he is not a surgical candidate at this time . This has been discussed with the patients mother . 3. CHF 4. hepatitis C with elevated liver enzymes 5. respiratory failure , ventilator dependent , weening from ventilator is being attempted . 6. hypokalemia , potassium is being corrected Problems: Consultation Date/Type/Reason Admit Date/Time Jun 26, 2016 at 11:39 Type of Consultation: ID Referring Provider: JC BROUSSARD MD 24 HR Interval Summary Free Text/Dictation He is in the ICU . He is off sedation , intubated on ventilator . Subjective hx not possible: pt non-verbal Exam/Review of Systems Vital Signs Vitals Vital Signs Date Time Temp Pulse Resp B/P Pulse Ox O2 Delivery O2 Flow Rate FiO2 07/03/16 07:00 98.6 97 16 112/54 98 Mechanical Ventilator 07/03/16 04:59 30 Intake and Output 07/02/16 07/02/16 07/03/16 14:59 22:59 06:59 Intake Total 775.5 ml 1233.333 ml 1302.917 ml Output Total 2700 ml 3580 ml 3750 ml Balance -1924.5 ml -2346.667 ml -2447.083 ml Exam Constitutional: non-verbal Respiratory: clear to auscultation Cardiovascular: regular rate and rhythm, systolic murmur Gastrointestinal: soft Extremities: edema Results Result Diagram: 07/03/16 0400 07/03/16 0400 Results 24 hrs Laboratory Tests Test 07/02/16 16:00 07/02/16 21:20 07/03/16 04:00 07/03/16 07:00 Arterial Blood HCO3 30.5 H 29.1 H Arterial Blood Base Excess 6.2 H 6.8 H Arterial Blood Oxygen Saturation 98.3 H 98.8 H Jaspal Test ACCEPTAB ACCEPTAB Arterial Blood Gas Puncture Site Right Radial Right Radial Arterial Blood Carboxyhemoglobin 0.6 0.6 Arterial Blood Date Drawn 07/02/2016 3:54:12 PM 07/03/2016 7:10:44 AM Arterial Blood Methemoglobin 0.3 0.2 Arterial Blood pCO2 (Temp correct) 42.6 33.9 L Arterial Blood pH (Temp corrected) 7.473 H 7.552 *H Arterial Blood pO2 (Temp corrected) 118.0 H 132.6 H Blood Gas A-a O2 Differential 45.8 H 41.5 H Blood Gas Actual Respiration Rate 15 16 Blood Gas Low PEEP Setting 5.0 5.0 Blood Gas Modality VENT - CPAP VENT - AC Blood Gas Notified Time 07/02/2016 4:01:58 PM 07/03/2016 8:02:39 AM Blood Gas Notified Whom TM JLD Blood Gas Pressure Support 10 Blood Gas Specimen Source Blood arterial Blood arterial Blood Gas Temperature 37.0 37.0 FiO2 30.0 30.0 Oxyhemoglobin Percent 97.4 98.0 Total Hemoglobin 13.0 12.9 Anion Gap 12 12 Blood Urea Nitrogen 55 H 52 H Calcium Level 8.1 L 8.1 L Carbon Dioxide Level 35 H 36 H Chloride Level 107 107 Creatinine 1.34 H 1.24 Glucose Level 115 118 Potassium Level 3.2 L 3.3 L Sodium Level 151 H 152 H Ammonia 28 Blood Morphology Comment Hematocrit 36.4 L Hemoglobin 11.2 L Hepatitis B Core Total Antibody NEGATIVE Hepatitis B Surface Antigen NEGATIVE Hepatitis C Antibody REACTIVE H Iron Level 13 L Mean Corpuscular Hemoglobin 23.3 L Mean Corpuscular Hemoglobin Concent 30.9 L Mean Corpuscular Volume 75.3 L Mean Platelet Volume 9.5 Percent Iron Saturation 4 L Platelet Count 117 L Red Blood Count 4.83 Red Cell Distribution Width 19.6 H Total Iron Binding Capacity 311 White Blood Count 11.3 H Blood Gas Critical Value Read Back Bethany DIANA RN Blood Gas Respiration Rate 16.0 Blood Gas Tidal Volume 550.0 Medications Medications Current Medications Ondansetron HCl (Zofran Inj) 4 mg Q6H PRN IV NAUSEA AND/OR VOMITING; Start at 12:00 Nitroglycerin (Nitroglycerin (Sl Tab) 0.4 Mg) 1 tab Q5M PRN SL CHEST PAIN; Start 06/26/16 at 12:00 Acetaminophen (Tylenol Supp) 650 mg Q4H PRN [place] PAIN LEVEL 1-3 OR FEVER Last administered on 07/01/16 19:57; Admin Dose 650 MG; Start 06/26/16 at 12:00 Morphine Sulfate (morphine) 2 mg Q4H PRN IV PAIN LEVEL 7-10; Start 06/26/16 at 12:00 Lorazepam (Ativan) 1 mg Q2H PRN IV ANXIETY Last administered on 07/02/16 08:33 ; Admin Dose 1 MG; Start 06/26/16 at 12:00 Heparin Sodium (Porcine) 5000 unit 5,000 unit BID SC Last administered on 21:12; Admin Dose 5,000 UNIT; Start 06/26/16 at 21:00 Cefepime HCl 50 ml @ 100 mls/hr Q12 IVPB Last administered on 07/02/16 21:09; Admin Dose 100 MLS/HR; Start 06/26/16 at 15:00 Levofloxacin/ Dextrose (Levaquin 500mg/ D5W 100 ml (Pmx)) 100 ml @ 100 mls/hr Q24H IVPB Last administered on 07/02/16 16:52; Admin Dose 100 MLS/HR; Start at 15:00 IV Flush 10 ml 10 ml PRN PRN IV IV PROTOCOL; Start 06/27/16 at 16:30 Pantoprazole 80 mg/Sodium Chloride 100 ml @ 10 mls/hr Q10H IV Last administered on 07/02/16 23:37; Admin Dose 10 MLS/HR; Start 06/28/16 at 09:30 Vancomycin HCl/ Sodium Chloride (Vancocin/NS) 250 ml @ 83.333 mls/ hr Q24H IVPB Last administered on 07/02/16 21:13; Admin Dose 83.333 MLS/HR; Start at 22:00 Metoprolol Tartrate 25 mg 25 mg BID PO Last administered on 07/02/16 21:10; Admin Dose 25 MG; Start 06/28/16 at 21:00 Fentanyl/Dextrose (D5W) 100 ml @ 0 mls/hr TITRATE IV Last administered on 04:49; Admin Dose 2.5 MLS/HR; Start 06/29/16 at 15:30 Nystatin (Nystatin Susp) 5 ml TID PO Last administered on 07/02/16 21:09; Admin Dose 5 ML; Start 06/30/16 at 21:00 Potassium Chloride (Potassium Chloride Pwd/Soln) 40 meq DAILY GTB Last administered on 07/02/16 07:47; Admin Dose 40 MEQ; Start 06/30/16 at 20:00 Hydralazine HCl 10 mg 10 mg Q8 PO Last administered on 07/03/16 05:42; Admin Dose 10 MG; Start 07/01/16 at 14:00 Bumetanide 25 mg/ Dextrose 250 ml @ 10 mls/hr Q24H IV Last administered on 07/02 21:10; Admin Dose 10 MLS/HR; Start 07/01/16 at 21:30 Dextrose (D5W) 1,000 ml @ 120 mls/hr Q8H20M IV Last administered on 07/03/16 04:41; Admin Dose 120 MLS/HR; Start 07/02/16 at 09:30 CRESENCIO CASTILLO MD Jul 03, 2016 08:24
--- NOTE | 2016-07-03 08:30 | RADRPT ---
PROCEDURE: Chest 1 views. CLINICAL INDICATION: Shortness of breath, pneumonia, congestive heart failure. TECHNIQUE: AP views of the chest were obtained. COMPARISON: July 01, 2016 FINDINGS: The heart is large. Endotracheal and nasogastric tubes are stable and appear grossly appropriate loc ation. Left-sided PICC line is unchanged. Retrocardiac opacity is stable. Osseous structures are intact. IMPRESSION: Cardiomegaly . Stable support lines and tubes. Stable retrocardiac opacity that may reflect left lower lobe atelectasis or infiltrate combined with small pleural effusion. RPTAT: AA .Mu Membreno MD, Date Time Electronically viewed and signed by .Mu Membreno MD, on 07/03/2016 08:30 .P/
[2016-07-03] MEDS: HEPARIN 5,000 UNIT/0.5 ML SYG SC SCH ×2 (08:31→20:45)
[2016-07-03] MEDS: PANTOPRAZOLE IV 80 MG in SOD CHLORIDE 0.9% 100 ML IV SCH ×2 (09:34→21:52)
[2016-07-03 09:43] LABS: LYMPHOCYTES # 1.2 10^3/ul (0.8-2.9); MONOCYTE # 0.9 10^3/ul (0.3-0.9); NEUTROPHIL # 9.2 10^3/ul (1.6-7.5)
[2016-07-03 09:44] LABS: ANISOCYTOSIS 2+; HYPOCHROMASIA 3+; MICROCYTOSIS 2+
[2016-07-03 09:45] LABS: PLATELET ESTIMATE PLT APPEAR DECREASED
--- NOTE | 2016-07-03 09:58 | CONS ---
Date/Time of Note Date/Time of Note DATE: 07/03/16 TIME: 09:58 Consult Date/Type/Reason Admit Date/Time Jun 26, 2016 at 11:39 Type of Consultation: pulmonary Ordering Provider: JC BROUSSARD MD Subjective Tolerated CPAP yesterday however was not extubated secondary to altered mental status Appears somewhat more alert today following decreased fentanyl Objective Vital Signs Date Time Temp Pulse Resp B/P Pulse Ox O2 Delivery O2 Flow Rate FiO2 07/03/16 09:00 99 19 105/53 98 Mechanical Ventilator 07/03/16 08:00 30 07/03/16 07:00 98.6 Intake and Output 07/02/16 07/02/16 07/03/16 15:00 23:00 07:00 Intake Total 895.5 ml 1196.666 ml 1379.584 ml Output Total 2730 ml 3650 ml 3700 ml Balance -1834.5 ml -2453.334 ml -2320.416 ml PHYSICAL EXAMINATION: GENERAL: A chronically ill-appearing gentleman, intubated on mechanical ventilation, comfortable at rest, no acute distress. VITAL SIGNS: As above NECK: Supple. No JVD or lymphadenopathy. CARDIAC: S1, S2, no added sounds or murmurs. CHEST: Diminished air entry bilaterally. ABDOMEN: Soft, nontender. No guarding or rebound. EXTREMITIES: No cyanosis, clubbing, edema. NEUROLOGIC: Unable to assess. Results/Medications Result Diagram: 07/03/16 0400 07/03/16 0400 Results 24 hrs Laboratory Tests Test 07/02/16 16:00 07/02/16 21:20 07/03/16 04:00 07/03/16 07:00 Arterial Blood HCO3 30.5 H 29.1 H Arterial Blood Base Excess 6.2 H 6.8 H Arterial Blood Oxygen Saturation 98.3 H 98.8 H Jaspal Test ACCEPTAB ACCEPTAB Arterial Blood Gas Puncture Site Right Radial Right Radial Arterial Blood Carboxyhemoglobin 0.6 0.6 Arterial Blood Date Drawn 07/02/2016 3:54:12 PM 07/03/2016 7:10:44 AM Arterial Blood Methemoglobin 0.3 0.2 Arterial Blood pCO2 (Temp correct) 42.6 33.9 L Arterial Blood pH (Temp corrected) 7.473 H 7.552 *H Arterial Blood pO2 (Temp corrected) 118.0 H 132.6 H Blood Gas A-a O2 Differential 45.8 H 41.5 H Blood Gas Actual Respiration Rate 15 16 Blood Gas Low PEEP Setting 5.0 5.0 Blood Gas Modality VENT - CPAP VENT - AC Blood Gas Notified Time 07/02/2016 4:01:58 PM 07/03/2016 8:02:39 AM Blood Gas Notified Whom TM JLD Blood Gas Pressure Support 10 Blood Gas Specimen Source Blood arterial Blood arterial Blood Gas Temperature 37.0 37.0 FiO2 30.0 30.0 Oxyhemoglobin Percent 97.4 98.0 Total Hemoglobin 13.0 12.9 Anion Gap 12 12 Blood Urea Nitrogen 55 H 52 H Calcium Level 8.1 L 8.1 L Carbon Dioxide Level 35 H 36 H Chloride Level 107 107 Creatinine 1.34 H 1.24 Glucose Level 115 118 Potassium Level 3.2 L 3.3 L Sodium Level 151 H 152 H Ammonia 28 Anisocytosis 2+ Blood Morphology Comment Hematocrit 36.4 L Hemoglobin 11.2 L Hepatitis B Core Total Antibody NEGATIVE Hepatitis B Surface Antigen NEGATIVE Hepatitis C Antibody REACTIVE H Hypochromasia 3+ Iron Level 13 L Lymphocytes # 1.2 Lymphocytes % 11.0 L Mean Corpuscular Hemoglobin 23.3 L Mean Corpuscular Hemoglobin Concent 30.9 L Mean Corpuscular Volume 75.3 L Mean Platelet Volume 9.5 Microcytosis 2+ Monocytes # 0.9 Monocytes % 8.0 Neutrophils # 9.2 H Neutrophils % 81.0 H Percent Iron Saturation 4 L Platelet Count 117 L Platelet Estimate PLT APPEAR DECREASED Red Blood Count 4.83 Red Cell Distribution Width 19.6 H Total Iron Binding Capacity 311 White Blood Count 11.3 H Blood Gas Critical Value Read Back Bethany DIANA RN Blood Gas Respiration Rate 16.0 Blood Gas Tidal Volume 550.0 Medications Current Medications Ondansetron HCl (Zofran Inj) 4 mg Q6H PRN IV NAUSEA AND/OR VOMITING; Start at 12:00 Nitroglycerin (Nitroglycerin (Sl Tab) 0.4 Mg) 1 tab Q5M PRN SL CHEST PAIN; Start 06/26/16 at 12:00 Acetaminophen (Tylenol Supp) 650 mg Q4H PRN [place] PAIN LEVEL 1-3 OR FEVER Last administered on 07/01/16t 19:57; Admin Dose 650 MG; Start 06/26/16 at 12:00 Morphine Sulfate (morphine) 2 mg Q4H PRN IV PAIN LEVEL 7-10; Start 06/26/16 at 12:00 Lorazepam (Ativan) 1 mg Q2H PRN IV ANXIETY Last administered on 07/02/16 08:33 ; Admin Dose 1 MG; Start 06/26/16 at 12:00 Heparin Sodium (Porcine) 5000 unit 5,000 unit BID SC Last administered on 08:31; Admin Dose 5,000 UNIT; Start 06/26/16 at 21:00 Cefepime HCl 50 ml @ 100 mls/hr Q12 IVPB Last administered on 07/03/16 08:20; Admin Dose 100 MLS/HR; Start 06/26/16 at 15:00 Levofloxacin/ Dextrose (Levaquin 500mg/ D5W 100 ml (Pmx)) 100 ml @ 100 mls/hr Q24H IVPB Last administered on 07/02/16 16:52; Admin Dose 100 MLS/HR; Start at 15:00 IV Flush 10 ml 10 ml PRN PRN IV IV PROTOCOL; Start 06/27/16 at 16:30 Pantoprazole 80 mg/Sodium Chloride 100 ml @ 10 mls/hr Q10H IV Last administered on 07/03/16 09:34; Admin Dose 10 MLS/HR; Start 06/28/16 at 09:30 Vancomycin HCl/ Sodium Chloride (Vancocin/NS) 250 ml @ 83.333 mls/ hr Q24H IVPB Last administered on 07/02/16 21:13; Admin Dose 83.333 MLS/HR; Start at 22:00 Metoprolol Tartrate 25 mg 25 mg BID PO Last administered on 07/03/16 08:21; Admin Dose 25 MG; Start 06/28/16 at 21:00 Fentanyl/Dextrose (D5W) 100 ml @ 0 mls/hr TITRATE IV Last administered on 04:49; Admin Dose 2.5 MLS/HR; Start 06/29/16 at 15:30 Nystatin (Nystatin Susp) 5 ml TID PO Last administered on 07/03/16 08:20; Admin Dose 5 ML; Start 06/30/16 at 21:00 Potassium Chloride (Potassium Chloride Pwd/Soln) 40 meq DAILY GTB Last administered on 07/03/16 08:20; Admin Dose 40 MEQ; Start 06/30/16 at 20:00 Hydralazine HCl 10 mg 10 mg Q8 PO Last administered on 07/03/16 05:42; Admin Dose 10 MG; Start 07/01/16 at 14:00 Dextrose (D5W) 1,000 ml @ 120 mls/hr Q8H20M IV Last administered on 07/03/16 04:41; Admin Dose 120 MLS/HR; Start 07/02/16 at 09:30 Assessment/Plan Chief Complaint/Hosp Course IMPRESSION AND PLAN: 1. Hypoxemic respiratory failure. Secondary to congestive cardiac failure 2. Possible component of community-acquired pneumonia. 3. Bacterial endocarditis. 4. History of intravenous drug abuse. 5. History of pulmonary embolus. 6. Renal insufficiency The patient will require: 1. Continued mechanical ventilation. CPAP trial as tolerated 2. Diuresis if tolerated. 3. Broad-spectrum antibiotics. 4. DVT and GI prophylaxis. 5. d/w cardiology, agree with transfer to tertiary care center Problems: ASAD DAS MD, [facility] Jul 03, 2016 09:58
--- NOTE | 2016-07-03 12:12 | PN ---
Date/Time of Note Date/Time of Note DATE: 07/03/16 TIME: 12:03 Assessment/Plan VTE Prophylaxis VTE Prophylaxis Intervention: heparin Lines/Catheters IV Catheter Type (from Nrs): PICC Line Central line still needed: Yes Urinary Cath still in place: No Assessment/Plan Chief Complaint/Hosp Course Assessment/Plan: 36 yo unfortunate male with a past medical history of Bacterial Endocarditis finished 6 week course of IV antibiotics, Drug abuse, Nicotine abuse, Right popliteal thrombosis, PE (on Eliquis prior to admission), Microcytic anemia, CHF - diastolic, who came for worsening shortness of breath. 1. Shortness of breath - hypoxemic respiratory failure - multifactorial - heart failure acute on chronic - Vent dependent - intubated - f/u pulm recs - for CPAP trial today again 2. Sepsis - severe 2/2 to pneumonia (HCAP) + endocarditis - tachycardia/ leukocytosis - WBC improved - per ID, continue IV cefepime, levaquin, vanc - f/u respiratory cultures, monitor trend - improving - appreciate ID recs - improving 3. CHF - diastolic dysfunction acute on chronic - EF recent shows 40%, D shaped left ventricle - f/u CV rec's - f/u renal rec's, monitor UO 4. Hypernatremia - appreciate nephrology consult - improving - continue D5W IVF's as well per renal rec's 5. BESSIE - acute on chronic - 2/2 #2 - worsening - ATN with AIN component - improving 6. Transaminitis - 2/2 to sepsis, or possible atypical pneumonia, monitor trend - improving 7. PE - heparin 8. Right popliteal thrombus - pt presently on heparin sub Q at this time 9. Microcytic anemia - monitor H/H, transfuse if hgb < 8 g/dL 10. GI ppx - protonix drip for now, f/u GI rec's 11. DVT ppx - heparin dispo - f/u recs, palliative care consult - will monitor functional status - overall prognosis is poor - DNR/DNI - possible conversion to comfort care measures if deteriorating condition - consider surgical intervention critical care time today = 40 min Problems: Subjective 24 Hr Interval Summary Free Text/Dictation Pt undergoing CPAP trial again today, no acute events overnight. Off bumex drip since this AM. Getting potassium repletion as well. Exam/Review of Systems Vital Signs Vitals Vital Signs Date Time Temp Pulse Resp B/P Pulse Ox O2 Delivery O2 Flow Rate FiO2 07/03/16 11:30 103 24 102/54 98 CPAP 07/03/16 08:00 30 07/03/16 07:00 98.6 Intake and Output 07/02/16 07/02/16 07/03/16 15:00 23:00 07:00 Intake Total 895.5 ml 1196.666 ml 1379.584 ml Output Total 2730 ml 3650 ml 3700 ml Balance -1834.5 ml -2453.334 ml -2320.416 ml Exam Gen Evelyn: sedated/intubated HEENT: NC/AT, ETT in place NECK: supple, no thyromegaly THORAX: symmetrical, no obvious deformities CV: S1S2, RRR, III/ holosystolic murmur best heard over mitral area - blowing type Lungs: Coarse breath sounds, scattered wheezing, bibasilar crackles Abd: soft, NT/ND, +BS, no rebound, no guarding, neg HSM : scrotal edema, with some skin sloughing noted EXT: 1 + bilateral upper/lower extremities edema, no ecchymosis, no clubbing, FROM, mild cyanosis noted at phalanges bilaterally lower extremities Neuro: cannot assess - intubated/sedated Psych: agitated Results Result Diagram: 07/03/16 0400 07/03/16 0400 Results 24 hrs Laboratory Tests Test 07/02/16 16:00 07/02/16 21:20 07/03/16 04:00 07/03/16 07:00 Arterial Blood HCO3 30.5 H 29.1 H Arterial Blood Base Excess 6.2 H 6.8 H Arterial Blood Oxygen Saturation 98.3 H 98.8 H Jaspal Test ACCEPTAB ACCEPTAB Arterial Blood Gas Puncture Site Right Radial Right Radial Arterial Blood Carboxyhemoglobin 0.6 0.6 Arterial Blood Date Drawn 07/02/2016 3:54:12 PM 07/03/2016 7:10:44 AM Arterial Blood Methemoglobin 0.3 0.2 Arterial Blood pCO2 (Temp correct) 42.6 33.9 L Arterial Blood pH (Temp corrected) 7.473 H 7.552 *H Arterial Blood pO2 (Temp corrected) 118.0 H 132.6 H Blood Gas A-a O2 Differential 45.8 H 41.5 H Blood Gas Actual Respiration Rate 15 16 Blood Gas Low PEEP Setting 5.0 5.0 Blood Gas Modality VENT - CPAP VENT - AC Blood Gas Notified Time 07/02/2016 4:01:58 PM 07/03/2016 8:02:39 AM Blood Gas Notified Whom TM JLD Blood Gas Pressure Support 10 Blood Gas Specimen Source Blood arterial Blood arterial Blood Gas Temperature 37.0 37.0 FiO2 30.0 30.0 Oxyhemoglobin Percent 97.4 98.0 Total Hemoglobin 13.0 12.9 Anion Gap 12 12 Blood Urea Nitrogen 55 H 52 H Calcium Level 8.1 L 8.1 L Carbon Dioxide Level 35 H 36 H Chloride Level 107 107 Creatinine 1.34 H 1.24 Glucose Level 115 118 Potassium Level 3.2 L 3.3 L Sodium Level 151 H 152 H Ammonia 28 Anisocytosis 2+ Blood Morphology Comment Hematocrit 36.4 L Hemoglobin 11.2 L Hepatitis B Core Total Antibody NEGATIVE Hepatitis B Surface Antigen NEGATIVE Hepatitis C Antibody REACTIVE H Hypochromasia 3+ Iron Level 13 L Lymphocytes # 1.2 Lymphocytes % 11.0 L Mean Corpuscular Hemoglobin 23.3 L Mean Corpuscular Hemoglobin Concent 30.9 L Mean Corpuscular Volume 75.3 L Mean Platelet Volume 9.5 Microcytosis 2+ Monocytes # 0.9 Monocytes % 8.0 Neutrophils # 9.2 H Neutrophils % 81.0 H Percent Iron Saturation 4 L Platelet Count 117 L Platelet Estimate PLT APPEAR DECREASED Red Blood Count 4.83 Red Cell Distribution Width 19.6 H Total Iron Binding Capacity 311 White Blood Count 11.3 H Blood Gas Critical Value Read Back Bethany DIANA RN Blood Gas Respiration Rate 16.0 Blood Gas Tidal Volume 550.0 Medications Medications Current Medications Ondansetron HCl (Zofran Inj) 4 mg Q6H PRN IV NAUSEA AND/OR VOMITING; Start at 12:00 Nitroglycerin (Nitroglycerin (Sl Tab) 0.4 Mg) 1 tab Q5M PRN SL CHEST PAIN; Start 06/26/16 at 12:00 Acetaminophen (Tylenol Supp) 650 mg Q4H PRN [place] PAIN LEVEL 1-3 OR FEVER Last administered on 07/01/16t 19:57; Admin Dose 650 MG; Start 06/26/16 at 12:00 Morphine Sulfate (morphine) 2 mg Q4H PRN IV PAIN LEVEL 7-10; Start 06/26/16 at 12:00 Lorazepam (Ativan) 1 mg Q2H PRN IV ANXIETY Last administered on 07/02/16 08:33 ; Admin Dose 1 MG; Start 06/26/16 at 12:00 Heparin Sodium (Porcine) 5000 unit 5,000 unit BID SC Last administered on 08:31; Admin Dose 5,000 UNIT; Start 06/26/16 at 21:00 Cefepime HCl 50 ml @ 100 mls/hr Q12 IVPB Last administered on 07/03/16 08:20; Admin Dose 100 MLS/HR; Start 06/26/16 at 15:00 Levofloxacin/ Dextrose (Levaquin 500mg/ D5W 100 ml (Pmx)) 100 ml @ 100 mls/hr Q24H IVPB Last administered on 07/02/16 16:52; Admin Dose 100 MLS/HR; Start at 15:00 IV Flush 10 ml 10 ml PRN PRN IV IV PROTOCOL; Start 06/27/16 at 16:30 Pantoprazole 80 mg/Sodium Chloride 100 ml @ 10 mls/hr Q10H IV Last administered on 07/03/16 09:34; Admin Dose 10 MLS/HR; Start 06/28/16 at 09:30 Vancomycin HCl/ Sodium Chloride (Vancocin/NS) 250 ml @ 83.333 mls/ hr Q24H IVPB Last administered on 07/02/16 21:13; Admin Dose 83.333 MLS/HR; Start at 22:00 Metoprolol Tartrate 25 mg 25 mg BID PO Last administered on 07/03/16 08:21; Admin Dose 25 MG; Start 06/28/16 at 21:00 Fentanyl/Dextrose (D5W) 100 ml @ 0 mls/hr TITRATE IV Last administered on 04:49; Admin Dose 2.5 MLS/HR; Start 06/29/16 at 15:30 Nystatin (Nystatin Susp) 5 ml TID PO Last administered on 07/03/16 08:20; Admin Dose 5 ML; Start 06/30/16 at 21:00 Potassium Chloride (Potassium Chloride Pwd/Soln) 40 meq DAILY GTB Last administered on 07/03/16 08:20; Admin Dose 40 MEQ; Start 06/30/16 at 20:00 Hydralazine HCl 10 mg 10 mg Q8 PO Last administered on 07/03/16 05:42; Admin Dose 10 MG; Start 07/01/16 at 14:00 Dextrose (D5W) 1,000 ml @ 120 mls/hr Q8H20M IV Last administered on 07/03/16 04:41; Admin Dose 120 MLS/HR; Start 07/02/16 at 09:30 ROBERTO DAVISON Jul 03, 2016 12:12
--- NOTE | 2016-07-03 12:13 | PN ---
DATE: 07/03/2016 SUBJECTIVE: No acute events overnight. The patient is intubated and sedated, looks comfortable, no fevers overnight. VITAL SIGNS: Temperature 98.6, pulse 99, respirations 19, blood pressure 105/53, saturation 98 on 3 0 FIO2. WBC 11.3, H and H 11.2 and 36.4, platelets 117, neutrophils 81. BUN 52, creatinine 1.24. ANTIMICROBIALS: 1. Vancomycin. 2. Cefepime. 3. Levaquin. The patient is also getting nystatin orally. INDWELLINGS: Endotracheal tube, NG tube, Merino, PICC line placed on 06/27/2016. PHYSICAL EXAMINATION: GENERAL: This is a well-developed, middle-aged white man who is lying comfortably in bed. HEENT: Head atraumatic, normocephalic. Sclerae anicteric. Buccal mucosa dry. NECK: Supple, trachea midline. CHEST: Rise symmetrical. Breath sounds diminished to bases. HEART: S1, S2. ABDOMEN: Soft. Bowel tones present. EXTREMITIES: Bilateral extremities edema. ASSESSMENT: 1. Acute respiratory failure, secondary to fluid overload and CHF exacerbation. 2. Possible community-acquired pneumonia. 3. Bacterial endocarditis with aortic and mitral valve vegetations and history of alpha hemolytic s epticemia in March 2016. 4. History of pulmonary emboli. 5. Acute renal failure, renal function improved. 6. Anemia. 7. History of IV drug abuse. 8. Oral thrush, patient remains on oral nystatin. PLAN: We are going to discontinue Levaquin, keep the patient on vancomycin and cefepime for now. C ontinue vent management as per pulmonary, cardiology and nephrology recommendations. Dictated By: RAYMOND HER DISCOVERY MANAGER for JULIO CESAR DURON/NTS Conf#: [id number] DID#: [id number]
[2016-07-03 12:34] LABS: AADO2 Arterial 51.3 mmHg (7.0-24.0); Allen Test ACCEPTAB; Arterial Base Excess 8.3 mmol/L (-3.0-3); Arterial COHb 0.6 % (0.0-3.0); Arterial Fraction of Oxyhgb 97.7 % (93.0-99.0); Arterial HCO3 31.8 mmol/L (22.0-26.0); Arterial MetHb 0.2 % (0.0-1.5); Arterial Total Hemglobin 12.6 g/dl (12.0-18.0); Blood Gas PS 10; MODE VENT - CPAP
[2016-07-03] MEDS: LEVOFLOXACIN 500MG/D5W (PMX) 100 ML IVPB SCH (14:45)
[2016-07-03] MEDS: BUMETANIDE 25 MG in DEXTROSE 5% 150 ML IV SCH (14:50)
--- NOTE | 2016-07-03 14:59 | CONS ---
Date/Time of Note Date/Time of Note DATE: 07/03/16 TIME: 14:38 Assessment/Plan Assessment/Plan Additional Assessment/Plan 1. Microcytic anemia: - f/u occult blood. If occult blood negative, can dc protonix gtt and change to iv bid - f/u iron panel and replete with iv iron if low 2. Transaminitis - 2/2 to sepsis, or possible to viral hepatitis given his IVDU history. Currently transaminase stable - HCV pos, awaiting HCV RNA and genotype 3. Encephalopathy - ammonia WNL, likely 2/2 to Hepatitis C 4. Shortness of breath - hypoxemic respiratory failure - multifactorial - heart failure acute on chronic - Vent dependent - intubated - f/u pulm recs 5. Sepsis severe 2/2 to pneumonia - follow ID recs 6. CHF - diastolic dysfunction acute on chronic - EF recent shows 40%, D shaped left ventricle - f/u cardiology Consultation Date/Type/Reason Admit Date/Time Jun 26, 2016 at 11:39 Initial Consult Date Type of Consultation: Gastroenterology Reason for Consultation Transaminitis Referring Provider: JC BROUSSARD MD 24 HR Interval Summary Free Text/Dictation Possible Hep C Awaiting Hep C RNA and genotype Mother states that pt aware of Hep C status x 1 year but not currently treated Planning for extubation after CT and EEG Wait for stool OB before iron repletion Exam/Review of Systems Vital Signs Vitals Vital Signs Date Time Temp Pulse Resp B/P Pulse Ox O2 Delivery O2 Flow Rate FiO2 07/03/16 14:15 104 21 105/56 97 CPAP 07/03/16 13:00 98.5 07/03/16 08:00 30 Intake and Output 07/02/16 07/02/16 07/03/16 15:00 23:00 07:00 Intake Total 895.5 ml 1196.666 ml 1379.584 ml Output Total 2730 ml 3650 ml 3700 ml Balance -1834.5 ml -2453.334 ml -2320.416 ml Exam Psych: confusion Head: atraumatic, normocephalic Eyes: EOMI, nl conjunctiva, nl lids, nl sclera ENMT: mucosa pink and moist, nl external ears & nose, nl lips & teeth, nl nasal mucosa & septum Neck: non-tender, supple Respiratory: clear to auscultation, normal air movement Cardiovascular: nl pulses, regular rate and rhythm Gastrointestinal: bowel sounds, non-tender, soft Results Result Diagram: 07/03/16 0400 07/03/16 1200 Results 24 hrs Laboratory Tests Test 07/02/16 16:00 07/02/16 21:20 07/03/16 04:00 07/03/16 07:00 Arterial Blood HCO3 30.5 H 29.1 H Arterial Blood Base Excess 6.2 H 6.8 H Arterial Blood Oxygen Saturation 98.3 H 98.8 H Jaspal Test ACCEPTAB ACCEPTAB Arterial Blood Gas Puncture Site Right Radial Right Radial Arterial Blood Carboxyhemoglobin 0.6 0.6 Arterial Blood Date Drawn 07/02/2016 3:54:12 PM 07/03/2016 7:10:44 AM Arterial Blood Methemoglobin 0.3 0.2 Arterial Blood pCO2 (Temp correct) 42.6 33.9 L Arterial Blood pH (Temp corrected) 7.473 H 7.552 *H Arterial Blood pO2 (Temp corrected) 118.0 H 132.6 H Blood Gas A-a O2 Differential 45.8 H 41.5 H Blood Gas Actual Respiration Rate 15 16 Blood Gas Low PEEP Setting 5.0 5.0 Blood Gas Modality VENT - CPAP VENT - AC Blood Gas Notified Time 07/02/2016 4:01:58 PM 07/03/2016 8:02:39 AM Blood Gas Notified Whom TM JLD Blood Gas Pressure Support 10 Blood Gas Specimen Source Blood arterial Blood arterial Blood Gas Temperature 37.0 37.0 FiO2 30.0 30.0 Oxyhemoglobin Percent 97.4 98.0 Total Hemoglobin 13.0 12.9 Anion Gap 12 12 Blood Urea Nitrogen 55 H 52 H Calcium Level 8.1 L 8.1 L Carbon Dioxide Level 35 H 36 H Chloride Level 107 107 Creatinine 1.34 H 1.24 Glucose Level 115 118 Potassium Level 3.2 L 3.3 L Sodium Level 151 H 152 H Ammonia 28 Anisocytosis 2+ Blood Morphology Comment Hematocrit 36.4 L Hemoglobin 11.2 L Hepatitis B Core Total Antibody NEGATIVE Hepatitis B Surface Antigen NEGATIVE Hepatitis C Antibody REACTIVE H Hypochromasia 3+ Iron Level 13 L Lymphocytes # 1.2 Lymphocytes % 11.0 L Mean Corpuscular Hemoglobin 23.3 L Mean Corpuscular Hemoglobin Concent 30.9 L Mean Corpuscular Volume 75.3 L Mean Platelet Volume 9.5 Microcytosis 2+ Monocytes # 0.9 Monocytes % 8.0 Neutrophils # 9.2 H Neutrophils % 81.0 H Percent Iron Saturation 4 L Platelet Count 117 L Platelet Estimate PLT APPEAR DECREASED Red Blood Count 4.83 Red Cell Distribution Width 19.6 H Total Iron Binding Capacity 311 White Blood Count 11.3 H Blood Gas Critical Value Read Back Y ADALGISA RN Blood Gas Respiration Rate 16.0 Blood Gas Tidal Volume 550.0 Test 07/03/16 12:00 07/03/16 12:30 Potassium Level 3.9 Arterial Blood HCO3 31.8 H Arterial Blood Base Excess 8.3 H Arterial Blood Oxygen Saturation 98.5 H Jaspal Test ACCEPTAB Arterial Blood Gas Puncture Site Right Radial Arterial Blood Carboxyhemoglobin 0.6 Arterial Blood Date Drawn 07/03/2016 12:25:53 PM Arterial Blood Methemoglobin 0.2 Arterial Blood pCO2 (Temp correct) 40.0 Arterial Blood pH (Temp corrected) 7.518 H Arterial Blood pO2 (Temp corrected) 115.6 H Blood Gas A-a O2 Differential 51.3 H Blood Gas Actual Respiration Rate 22 Blood Gas Low PEEP Setting 5.0 Blood Gas Modality VENT - CPAP Blood Gas Notified Time 07/03/2016 12:34:34 PM Blood Gas Notified Whom JLD Blood Gas Pressure Support 10 Blood Gas Specimen Source Blood arterial Blood Gas Temperature 37.0 FiO2 30.0 Oxyhemoglobin Percent 97.7 Total Hemoglobin 12.6 Medications Medications Current Medications Ondansetron HCl (Zofran Inj) 4 mg Q6H PRN IV NAUSEA AND/OR VOMITING; Start at 12:00 Nitroglycerin (Nitroglycerin (Sl Tab) 0.4 Mg) 1 tab Q5M PRN SL CHEST PAIN; Start 06/26/16 at 12:00 Acetaminophen (Tylenol Supp) [address] PAIN LEVEL 1-3 OR FEVER Last administered on 07/01/16 19:57; Admin Dose 650 MG; Start 06/26/16 at 12:00 Morphine Sulfate (morphine) 2 mg Q4H PRN IV PAIN LEVEL 7-10; Start 06/26/16 at 12:00 Lorazepam (Ativan) 1 mg Q2H PRN IV ANXIETY Last administered on 07/02/16 08:33 ; Admin Dose 1 MG; Start 06/26/16 at 12:00 Heparin Sodium (Porcine) 5000 unit 5,000 unit BID SC Last administered on 08:31; Admin Dose 5,000 UNIT; Start 06/26/16 at 21:00 Cefepime HCl 50 ml @ 100 mls/hr Q12 IVPB Last administered on 07/03/16 08:20; Admin Dose 100 MLS/HR; Start 06/26/16 at 15:00 Levofloxacin/ Dextrose (Levaquin 500mg/ D5W 100 ml (Pmx)) 100 ml @ 100 mls/hr Q24H IVPB Last administered on 07/02/16 16:52; Admin Dose 100 MLS/HR; Start at 15:00 IV Flush 10 ml 10 ml PRN PRN IV IV PROTOCOL; Start 06/27/16 at 16:30 Pantoprazole 80 mg/Sodium Chloride 100 ml @ 10 mls/hr Q10H IV Last administered on 07/03/16 09:34; Admin Dose 10 MLS/HR; Start 06/28/16 at 09:30 Vancomycin HCl/ Sodium Chloride (Vancocin/NS) 250 ml @ 83.333 mls/ hr Q24H IVPB Last administered on 07/02/16 21:13; Admin Dose 83.333 MLS/HR; Start at 22:00 Metoprolol Tartrate 25 mg 25 mg BID PO Last administered on 07/03/16 08:21; Admin Dose 25 MG; Start 06/28/16 at 21:00 Fentanyl/Dextrose (D5W) 100 ml @ 0 mls/hr TITRATE IV Last administered on 04:49; Admin Dose 2.5 MLS/HR; Start 06/29/16 at 15:30 Nystatin (Nystatin Susp) 5 ml TID PO Last administered on 07/03/16 12:43; Admin Dose 5 ML; Start 06/30/16 at 21:00 Potassium Chloride (Potassium Chloride Pwd/Soln) 40 meq DAILY GTB Last administered on 07/03/16 08:20; Admin Dose 40 MEQ; Start 06/30/16 at 20:00 Hydralazine HCl 10 mg 10 mg Q8 PO Last administered on 07/03/16 05:42; Admin Dose 10 MG; Start 1/1/17 at 14:00 Dextrose (D5W) 1,000 ml @ 120 mls/hr Q8H20M IV Last administered on 07/03/16t 12:51; Admin Dose 120 MLS/HR; Start 07/02/16 at 09:30 DARIUSZ GARZA Jul 03, 2016 14:48
--- NOTE | 2016-07-03 15:56 | PN ---
Date/Time of Note Date/Time of Note DATE: 07/03/16 TIME: 15:56 Assessment/Plan Lines/Catheters IV Catheter Type (from [facility]): PICC Line Merino in Place (from [facility]): No Assessment/Plan Chief Complaint/Hosp Course IMPRESSION: 1. Endocarditis involving aortic and mitral valve. 2. Aortic regurgitation. 3. Mitral regurgitation. 4. Cardiomyopathy with diminished ejection fraction. 5. Renal failure. 6. History of drug use. 7. Elevation of the transaminases. 8. Coagulopathy. RECOMMENDATIONS: This patient is not a candidate to undergo surgery at the present time; too high risk for surgical repair. Please continue antibiotics. Discussed with the nursing staff. and the mother Problems: Subjective 24 Hr Interval Summary Constitutional: improved Pain Control: mild Exam/Review of Systems Vital Signs Vitals Vital Signs Date Time Temp Pulse Resp B/P Pulse Ox O2 Delivery O2 Flow Rate FiO2 07/03/16 15:00 104 25 98/49 99 CPAP 07/03/16 13:30 30 07/03/16 13:00 98.5 Intake and Output 07/02/16 07/02/16 07/03/16 15:00 23:00 07:00 Intake Total 895.5 ml 1196.666 ml 1379.584 ml Output Total 2730 ml 3650 ml 3700 ml Balance -1834.5 ml -2453.334 ml -2320.416 ml Exam Respiratory: clear to auscultation, normal air movement Cardiovascular: nl pulses, regular rate and rhythm Results Result Diagram: 07/03/16 0400 07/03/16 1200 KARI ZAMAN MD Jul 03, 2016 15:56
--- NOTE | 2016-07-03 19:35 | SP ---
DATE OF PROCEDURE: 07/03/2016 IDENTIFICATION: A 36-year-old gentleman with encephalopathy. DESCRIPTION OF PROCEDURE: Routine EEG was recorded digitally. Imxym-[id number] and olobc-pi-zsr avani ages were recorded and reviewed. All impedances were measured and recorded. Cap electrodes were pl aced in accordance with International 10-20 system of electrode placement. FINDINGS: Symmetrically distributed background activity of low to medium amplitude ranging in frequ ency between 8 to 10 cycles per second was seen. Photic stimulation produces no definite driving. At times, background intermixes with slower waves of 4 to 6 cycles per second. No epileptiform douglas sients were seen. No signs of ongoing electrographic seizures or lateralized slowing. IMPRESSION: Mildly abnormal study secondary to intermittent background slowing, which may reflect p resence of encephalopathy, possibly toxic metabolic type, but finding is nonspecific. Please correl ate clinically. Dictated By: LALI SimsV/NTS Conf#: [id number] DID#: [id number] CC: DANA CARROLL MD;*End*
--- NOTE | 2016-07-03 21:44 | RADRPT ---
PROCEDURE: CT Head without. CLINICAL INDICATION: 36-year-old male with encephalopathy. TECHNIQUE: The study was performed utilizing a multi-slice, multidetector CT scanner. Direct spira l 1 mm axial sections were obtained through the head without the use of intravenous contrast materia l. Coronal and sagittal reformations were obtained. The images were reviewed on a PACS workstation. RADIATION DOSE: CTDIvol: 45.0 mGyDLP: 720.2 mGy-cm COMPARISON: No prior studies are available for comparison. FINDINGS: There is no intracranial hemorrhage, extra-axial fluid collection, mass lesion, midline shift or hyd rocephalus. The ventricles, sulci and cisterns are within normal limits. The white matter is unrem arkable. The younger-white matter differentiation is preserved. The basal cisterns are patent. The m idline structures are intact. The orbits, calvarium and extracranial soft tissues are normal in riaz earance. There is a small mucous retention cyst in the left maxillary sinus. The remaining paranasa l sinuses, mastoid air cells and middle ear cavities are normally aerated. IMPRESSION: 1. No acute intracranial abnormality. No intracranial hemorrhage, extra-axial fluid collection, ma ss lesion or hydrocephalous. RPTAT: HGAS .Morales Brown MD, MD Date Time Electronically viewed and signed by .Morales Brown MD, MD on 07/03/2016 21:44 .S/
[2016-07-03] MEDS: VANCOMYCIN 1.5 GM in SOD CHLORIDE 0.9% 250 ML IVPB SCH (21:54)
[2016-07-04] VITALS (80 sets, daily range): BP systolic 91–122; BP diastolic 46–66; PULSE 87–112; RESP 11–25
[2016-07-04] MEDS: POTASSIUM CHLORIDE 50 ML IVPB PRN ×6 (01:28→22:34)
[2016-07-04 04:58] LABS: BASOPHILS % 0.1 % (0.0-2.0); EOSINOPHILS # 0.2 10^3/ul (0.0-0.5); EOSINOPHILS % 1.4 % (0.0-7.0); HEMOGLOBIN 11.4 g/dl (14.0-18.0); LYMPHOCYTES # 1.7 10^3/ul (0.8-2.9); MEAN CORPUSCULAR HGB CONC 29.9 g/dl (32.0-37.0); MEAN CORPUSCULAR VOLUME 76.8 fl (82.0-101.0); MONOCYTE # 0.8 10^3/ul (0.3-0.9); MONOCYTES % 6.3 % (0.0-11.0); NEUTROPHIL # 10.2 10^3/ul (1.6-7.5); NEUTROPHILS % 79.2 % (39.0-77.0); PLATELET COUNT 135 10^3/UL (140-440); RED BLOOD COUNT 4.94 10^6/ul (4.70-6.10); RED CELL DISTRIBUTION WIDTH 19.4 % (11.5-14.5); UNCORRECTED WBC 12.9 10^3/ul (4.8-10.8); WHITE BLOOD COUNT 12.9 10^3/ul (4.8-10.8)
[2016-07-04 05:00] LABS: POTASSIUM 4.3 mmol/L (3.5-5.1)
[2016-07-04 05:02] LABS: CREATININE 1.07 mg/dl (0.61-1.24)
[2016-07-04 05:26] LABS: CONDITION 1; LH ANALYZER COMMENTS 1
[2016-07-04] MEDS: POTASSIUM CHLORIDE 20 MEQ POWDER FOR ORAL SOLN GTB SCH ×3 (05:43→18:51)
--- NOTE | 2016-07-04 08:02 | CONS ---
Date/Time of Note Date/Time of Note DATE: 07/04/16 TIME: 07:57 Assessment/Plan Assessment/Plan Chief Complaint/Hosp Course 1. acute renal failure superimposed on CKD . His renal function has improved . He is having a good diuresis with Bumex drip . monitor potassium 2. 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 CT surgery says that he is not a surgical candidate at this time . This has been discussed with the patients mother . 3. CHF 4. hepatitis C with elevated liver enzymes 5. respiratory failure , ventilator dependent , weening from ventilator is being attempted . 6. hypokalemia , potassium is being corrected 7. hypernatremia is correcting . Problems: Consultation Date/Type/Reason Admit Date/Time Jun 26, 2016 at 11:39 Type of Consultation: Gastroenterology Referring Provider: JC BROUSSARD MD 24 HR Interval Summary Free Text/Dictation He is in the ICU , he opens eyes , mildly sedated , intubated on ventilator . Exam/Review of Systems Vital Signs Vitals Vital Signs Date Time Temp Pulse Resp B/P Pulse Ox O2 Delivery O2 Flow Rate FiO2 07/04/16 06:00 110 16 111/59 100 CPAP Mechanical Ventilator 07/04/16 05:15 30 07/04/16 04:00 98.9 Intake and Output 07/03/16 07/03/16 07/04/16 15:00 23:00 07:00 Intake Total 695.0 ml 1171.666 ml 1078.334 ml Output Total 1520 ml 2450 ml 1500 ml Balance -825.0 ml -1278.334 ml -421.666 ml Exam Constitutional: non-verbal Respiratory: clear to auscultation, normal air movement Cardiovascular: murmurs/extra sounds, regular rate and rhythm Gastrointestinal: soft Extremities: edema Results Result Diagram: 07/04/16 0350 07/04/16 0350 Results 24 hrs Laboratory Tests Test 07/03/16 12:00 07/03/16 12:30 07/04/16 00:45 07/04/16 03:50 Potassium Level 3.9 3.2 L 4.3 Arterial Blood HCO3 31.8 H Arterial Blood Base Excess 8.3 H Arterial Blood Oxygen Saturation 98.5 H Jaspal Test ACCEPTAB Arterial Blood Gas Puncture Site Right Radial Arterial Blood Carboxyhemoglobin 0.6 Arterial Blood Date Drawn 07/03/2016 12:25:53 PM Arterial Blood Methemoglobin 0.2 Arterial Blood pCO2 (Temp correct) 40.0 Arterial Blood pH (Temp corrected) 7.518 H Arterial Blood pO2 (Temp corrected) 115.6 H Blood Gas A-a O2 Differential 51.3 H Blood Gas Actual Respiration Rate 22 Blood Gas Low PEEP Setting 5.0 Blood Gas Modality VENT - CPAP Blood Gas Notified Time 07/03/2016 12:34:34 PM Blood Gas Notified Whom JLD Blood Gas Pressure Support 10 Blood Gas Specimen Source Blood arterial Blood Gas Temperature 37.0 FiO2 30.0 Oxyhemoglobin Percent 97.7 Total Hemoglobin 12.6 Anion Gap 10 Basophils # 0.0 Basophils % 0.1 Blood Morphology Comment Blood Urea Nitrogen 39 #H Calcium Level 8.0 L Carbon Dioxide Level 39 H Chloride Level 103 Creatinine 1.07 Eosinophils # 0.2 Eosinophils % 1.4 Glucose Level 110 Hematocrit 38.0 L Hemoglobin 11.4 L Lymphocytes # 1.7 Lymphocytes % 13.0 L Mean Corpuscular Hemoglobin 23.0 L Mean Corpuscular Hemoglobin Concent 29.9 L Mean Corpuscular Volume 76.8 L Mean Platelet Volume 10.0 Monocytes # 0.8 Monocytes % 6.3 Neutrophils # 10.2 H Neutrophils % 79.2 H Nucleated Red Blood Cells # 0.0 Nucleated Red Blood Cells % 0.0 Platelet Count 135 L Red Blood Count 4.94 Red Cell Distribution Width 19.4 H Sodium Level 148 H White Blood Count 12.9 H Medications Medications Current Medications Ondansetron HCl (Zofran Inj) 4 mg Q6H PRN IV NAUSEA AND/OR VOMITING; Start at 12:00 Nitroglycerin (Nitroglycerin (Sl Tab) 0.4 Mg) 1 tab Q5M PRN SL CHEST PAIN; Start 06/26/16 at 12:00 Acetaminophen (Tylenol Supp) [address] PAIN LEVEL 1-3 OR FEVER Last administered on 07/01/16 19:57; Admin Dose 650 MG; Start 06/26/16 at 12:00 Morphine Sulfate (morphine) 2 mg Q4H PRN IV PAIN LEVEL 7-10; Start 06/26/16 at 12:00 Lorazepam (Ativan) 1 mg Q2H PRN IV ANXIETY Last administered on 07/02/16 08:33 ; Admin Dose 1 MG; Start 06/26/16 at 12:00 Heparin Sodium (Porcine) 5000 unit 5,000 unit BID SC Last administered on 20:45; Admin Dose 5,000 UNIT; Start 06/26/16 at 21:00 Cefepime HCl 50 ml @ 100 mls/hr Q12 IVPB Last administered on 07/03/16 20:42; Admin Dose 100 MLS/HR; Start 06/26/16 at 15:00 Levofloxacin/ Dextrose (Levaquin 500mg/ D5W 100 ml (Pmx)) 100 ml @ 100 mls/hr Q24H IVPB Last administered on 07/03/16 14:45; Admin Dose 100 MLS/HR; Start at 15:00 IV Flush 10 ml 10 ml PRN PRN IV IV PROTOCOL; Start 06/27/16 at 16:30 Pantoprazole 80 mg/Sodium Chloride 100 ml @ 10 mls/hr Q10H IV Last administered on 07/03/16 21:52; Admin Dose 10 MLS/HR; Start 06/28/16 at 09:30 Vancomycin HCl/ Sodium Chloride (Vancocin/NS) 250 ml @ 83.333 mls/ hr Q24H IVPB Last administered on 07/03/16 21:54; Admin Dose 83.333 MLS/HR; Start at 22:00 Metoprolol Tartrate 25 mg 25 mg BID PO Last administered on 07/03/16 08:21; Admin Dose 25 MG; Start 06/28/16 at 21:00 Fentanyl/Dextrose (D5W) 100 ml @ 0 mls/hr TITRATE IV Last administered on 23:27; Admin Dose 5 MLS/HR; Start 06/29/16 at 15:30 Nystatin (Nystatin Susp) 5 ml TID PO Last administered on 07/03/16 20:43; Admin Dose 5 ML; Start 06/30/16 at 21:00 Hydralazine HCl 10 mg 10 mg Q8 PO Last administered on 07/03/16 05:42; Admin Dose 10 MG; Start 07/01/16 at 14:00 Dextrose 1,000 ml @ 120 mls/hr Q8H20M IV Last administered on 07/03/16 21:54; Admin Dose 120 MLS/HR; Start 07/02/16 at 09:30 Bumetanide/ Dextrose (Bumex/D5W) 250 ml @ 10 mls/hr Q24H IV Last administered on 07/03/16 14:50; Admin Dose 10 MLS/HR; Start 07/03/16 at 15:00 CRESENCIO CASTILLO MD Jul 04, 2016 08:02
[2016-07-04] MEDS: METOPROLOL 25 MG TAB PO SCH ×2 (08:36→20:39)
[2016-07-04] MEDS: NYSTATIN SUSP 5 ML CUP PO SCH ×3 (08:36→21:20)
[2016-07-04] MEDS: HEPARIN 5,000 UNIT/0.5 ML SYG SC SCH ×2 (08:41→20:31)
--- NOTE | 2016-07-04 08:48 | RADRPT ---
PROCEDURE: XR Chest. CLINICAL INDICATION: Shortness of breath. TECHNIQUE: Single frontal view. COMPARISON: 07/03/2016. FINDINGS: The endotracheal tube, nasogastric tube, and left arm PICC line remain in satisfactory position. Th ere is left basilar atelectasis or pneumonia, unchanged. The lungs are otherwise clear. The heart is enlarged. There is no pleural effusion. There is no pneumothorax. IMPRESSION: 1. No change from 07/03/2016. RPTAT: QQ .Radu Schneider MD, MD Date Time Electronically viewed and signed by .Radu Schneider MD, MD on 07/04/2016 08:47 .R/
[2016-07-04] MEDS: CEFEPIME 1GM/50 ML (PMX) 50 ML IVPB SCH ×2 (08:54→20:30)
[2016-07-04] MEDS: PANTOPRAZOLE IV 80 MG in SOD CHLORIDE 0.9% 100 ML IV SCH ×3 (08:56→17:22)
[2016-07-04] MEDS: DEXTROSE 5% 1,000 ML IV SCH (09:20)
--- NOTE | 2016-07-04 11:04 | CONS ---
Date/Time of Note Date/Time of Note DATE: 07/04/16 TIME: 10:51 Consult Date/Type/Reason Admit Date/Time Jun 26, 2016 at 11:39 Type of Consultation: Pulm Ordering Provider: JC BROUSSARD MD Subjective Intubated sedated, moderate secretions. Moderate oral secretions. Placed back on ac ventilation this morning. Objective Vital Signs Date Time Temp Pulse Resp B/P Pulse Ox O2 Delivery O2 Flow Rate FiO2 07/04/16 09:30 100 15 103/53 100 CPAP 07/04/16 08:00 98.2 07/04/16 08:00 30 Intake and Output 07/03/16 07/03/16 07/04/16 15:00 23:00 07:00 Intake Total 695.0 ml 1171.666 ml 1078.334 ml Output Total 1520 ml 2450 ml 1500 ml Balance -825.0 ml -1278.334 ml -421.666 ml PHYSICAL EXAMINATION: GENERAL: A chronically ill-appearing gentleman, intubated on mechanical ventilation, comfortable at rest, no acute distress. VITAL SIGNS: As above NECK: Supple. No JVD or lymphadenopathy. CARDIAC: S1, S2, no added sounds or murmurs. CHEST: Diminished air entry bilaterally. ABDOMEN: Soft, nontender. No guarding or rebound. EXTREMITIES: No cyanosis, clubbing, edema. NEUROLOGIC: Unable to assess. Results/Medications Result Diagram: 07/04/16 0350 07/04/16 0350 Results 24 hrs Laboratory Tests Test 07/03/16 12:00 07/03/16 12:30 07/04/16 00:45 07/04/16 03:50 Potassium Level 3.9 3.2 L 4.3 Arterial Blood HCO3 31.8 H Arterial Blood Base Excess 8.3 H Arterial Blood Oxygen Saturation 98.5 H Jaspal Test ACCEPTAB Arterial Blood Gas Puncture Site Right Radial Arterial Blood Carboxyhemoglobin 0.6 Arterial Blood Date Drawn 07/03/2016 12:25:53 PM Arterial Blood Methemoglobin 0.2 Arterial Blood pCO2 (Temp correct) 40.0 Arterial Blood pH (Temp corrected) 7.518 H Arterial Blood pO2 (Temp corrected) 115.6 H Blood Gas A-a O2 Differential 51.3 H Blood Gas Actual Respiration Rate 22 Blood Gas Low PEEP Setting 5.0 Blood Gas Modality VENT - CPAP Blood Gas Notified Time 07/03/2016 12:34:34 PM Blood Gas Notified Whom JLD Blood Gas Pressure Support 10 Blood Gas Specimen Source Blood arterial Blood Gas Temperature 37.0 FiO2 30.0 Oxyhemoglobin Percent 97.7 Total Hemoglobin 12.6 Anion Gap 10 Basophils # 0.0 Basophils % 0.1 Blood Morphology Comment Blood Urea Nitrogen 39 #H Calcium Level 8.0 L Carbon Dioxide Level 39 H Chloride Level 103 Creatinine 1.07 Eosinophils # 0.2 Eosinophils % 1.4 Glucose Level 110 Hematocrit 38.0 L Hemoglobin 11.4 L Lymphocytes # 1.7 Lymphocytes % 13.0 L Mean Corpuscular Hemoglobin 23.0 L Mean Corpuscular Hemoglobin Concent 29.9 L Mean Corpuscular Volume 76.8 L Mean Platelet Volume 10.0 Monocytes # 0.8 Monocytes % 6.3 Neutrophils # 10.2 H Neutrophils % 79.2 H Nucleated Red Blood Cells # 0.0 Nucleated Red Blood Cells % 0.0 Platelet Count 135 L Red Blood Count 4.94 Red Cell Distribution Width 19.4 H Sodium Level 148 H White Blood Count 12.9 H Medications Current Medications Ondansetron HCl (Zofran Inj) 4 mg Q6H PRN IV NAUSEA AND/OR VOMITING; Start at 12:00 Nitroglycerin (Nitroglycerin (Sl Tab) 0.4 Mg) 1 tab Q5M PRN SL CHEST PAIN; Start 06/26/16 at 12:00 Acetaminophen (Tylenol Supp) 650 mg Q4H PRN [place] PAIN LEVEL 1-3 OR FEVER Last administered on 07/01/16 19:57; Admin Dose 650 MG; Start 06/26/16 at 12:00 Morphine Sulfate (morphine) 2 mg Q4H PRN IV PAIN LEVEL 7-10; Start 06/26/16 at 12:00 Lorazepam (Ativan) 1 mg Q2H PRN IV ANXIETY Last administered on 07/02/16 08:33 ; Admin Dose 1 MG; Start 06/26/16 at 12:00 Heparin Sodium (Porcine) 5000 unit 5,000 unit BID SC Last administered on 08:41; Admin Dose 5,000 UNIT; Start 06/26/16 at 21:00 Cefepime HCl 50 ml @ 100 mls/hr Q12 IVPB Last administered on 07/04/16 08:54; Admin Dose 100 MLS/HR; Start 06/26/16 at 15:00 Levofloxacin/ Dextrose (Levaquin 500mg/ D5W 100 ml (Pmx)) 100 ml @ 100 mls/hr Q24H IVPB Last administered on 07/03/16 14:45; Admin Dose 100 MLS/HR; Start at 15:00 IV Flush 10 ml 10 ml PRN PRN IV IV PROTOCOL; Start 06/27/16 at 16:30 Pantoprazole 80 mg/Sodium Chloride 100 ml @ 10 mls/hr Q10H IV Last administered on 07/04/16 08:56; Admin Dose 10 MLS/HR; Start 06/28/16 at 09:30 Vancomycin HCl/ Sodium Chloride (Vancocin/NS) 250 ml @ 83.333 mls/ hr Q24H IVPB Last administered on 07/03/16 21:54; Admin Dose 83.333 MLS/HR; Start at 22:00 Metoprolol Tartrate 25 mg 25 mg BID PO Last administered on 07/04/16 08:36; Admin Dose 25 MG; Start 06/28/16 at 21:00 Fentanyl/Dextrose (D5W) 100 ml @ 0 mls/hr TITRATE IV Last administered on 23:27; Admin Dose 5 MLS/HR; Start 06/29/16 at 15:30 Nystatin (Nystatin Susp) 5 ml TID PO Last administered on 07/04/16 08:36; Admin Dose 5 ML; Start 06/30/16 at 21:00 Hydralazine HCl 10 mg 10 mg Q8 PO Last administered on 07/03/16 05:42; Admin Dose 10 MG; Start 07/01/16 at 14:00 Dextrose 1,000 ml @ 75 mls/hr [id number] IV Last administered on 07/04/16 09:20; Admin Dose 75 MLS/HR; Start 07/02/16 at 09:30 Bumetanide/ Dextrose (Bumex/D5W) 250 ml @ 10 mls/hr Q24H IV Last administered on 07/03/16 14:50; Admin Dose 10 MLS/HR; Start 07/03/16 at 15:00 Assessment/Plan Chief Complaint/Hosp Course IMPRESSION AND PLAN: 1. Hypoxemic respiratory failure. Secondary to congestive cardiac failure 2. Possible component of community-acquired pneumonia. 3. Bacterial endocarditis with valvular heart disease. 4. History of intravenous drug abuse. 5. History of pulmonary embolus. 6. Renal insufficiency The patient will require: 1. Continued mechanical ventilation. Repeat cpap in am 2. Diuresis if tolerated. 3. Broad-spectrum antibiotics. 4. DVT and GI prophylaxis. 5. d/w cardiology, agree with transfer to tertiary care center establish reintubation status. Problems: ASAD DAS MD, [facility] Jul 04, 2016 11:02
--- NOTE | 2016-07-04 11:56 | PN ---
DATE: 07/04/2016 SUBJECTIVE: No changes overnight. Patient is lying comfortably in bed, intubated, sedated, no feve rs. WBC today 12.9, platelets 135, neutrophils 79.2, no bands. BUN 39, creatinine 1.07. VITAL SIGNS: Temperature 98.2, pulse 100, respirations 15, blood pressure 103/53, saturation 100 on CPAP trial. DIAGNOSTICS: Chest x-ray this morning revealed no change. INDWELLINGS: Left upper extremity PICC line, endotracheal tube, NG tube, Merino catheter. ANTIMICROBIALS: 1. Vancomycin. 2. Cefepime. PHYSICAL EXAMINATION: GENERAL: This is a well-developed, middle-aged white man who is intubated and sedated, in no distre ss. HEENT: Head atraumatic, normocephalic. Sclerae anicteric. Buccal mucosa dry. NECK: Supple, trachea midline. CHEST: Rise symmetrical. Breath sounds diminished to bases. HEART: S1, S2. ABDOMEN: Soft. Bowel tones present. EXTREMITIES: With edema. ASSESSMENT: 1. Acute respiratory failure secondary to pulmonary edema, possibly community-acquired pneumonia, s tatus post Levaquin. 2. Acute renal failure, improving. 3. Bacterial endocarditis with aortic and mitral valve vegetations, history of alpha hemolytic stre p septicemia in March 2016. 4. History of PE. 5. Anemia. 6. Oral thrush, remains on nystatin. 7. History of IV drug abuse. PLAN: Remains stable. All cultures have been negative. He is being followed by multiple consultan ts. Continue antibiotics. Weaning trials per pulmonary. Dictated By: RAYMOND HER TICKETER for JULIO CESAR DURON/NTS Conf#: [id number] DID#: [id number]
--- NOTE | 2016-07-04 12:46 | CONS ---
Date/Time of Note Date/Time of Note DATE: 07/04/16 TIME: 12:42 Assessment/Plan Assessment/Plan Chief Complaint/Hosp Course IMPRESSION: 1. Congestive heart failure exacerbation, systolic, acute on chronic with last known EF approximately 40% by echo May 2016. 2. Aortic regurgitation, moderate to severe with possible ongoing vegetation by most recent echo May 2016. 3. Mitral regurgitation, moderate to severe. 4. History of recent endocarditis status post 6-week course of antibiotics. 5. Cardiomyopathy with decreased left ventricular ejection fraction last approximately 40% by echo 06/14/2016. 6. Coagulopathy. 7. Renal failure-slowly improving 8. Hypokalemia 9. Increased LFTs. 10. Increased BNP. 11. Leukocytosis. 12. Mild anemia. 13.Resp failure s/p intubation 14. s/p Code blue 15.DNR Recc: -Tele -Follow volume status closely with ongoing Bumex diuresis -Low dose BB/hydralazine as tolerated only -Per CT surgery not a candidate for valve replacement at this time due to high risk -F/U blood cultures -Continue abx's -Family deciding about direction of care currently with ongoing discussion Problems: Consultation Date/Type/Reason Admit Date/Time Jun 26, 2016 at 11:39 Initial Consult Date 06/27/2016 Type of Consultation: Cardiology Reason for Consultation CHF/AR/MR Referring Provider: JC BROUSSARD MD Exam/Review of Systems Vital Signs Vitals Vital Signs Date Time Temp Pulse Resp B/P Pulse Ox O2 Delivery O2 Flow Rate FiO2 07/04/16 12:15 90 16 92/50 100 07/04/16 11:30 Mechanical Ventilator 07/04/16 08:00 98.2 07/04/16 08:00 30 Intake and Output 07/03/16 07/03/16 07/04/16 15:00 23:00 07:00 Intake Total 695.0 ml 1171.666 ml 1078.334 ml Output Total 1520 ml 2450 ml 1500 ml Balance -825.0 ml -1278.334 ml -421.666 ml Exam Review of Systems: CONSTITUTIONAL: No fevers, chills. PULMONARY: intubated CARDIOVASCULAR: No obvious chest pain/palpitations GASTROINTESTINAL: No nausea/vomiting. GENITOURINARY: No hematuria/dysuria. MUSCULOSKELETAL: No obvious myagias/arthalgias. PSYCHIATRIC: No documented NEUROLOGIC: No weakness Constitutional: alert Psych: no complaints Head: normocephalic ENMT: intubated, mucosa pink and moist Neck: jvd, supple Respiratory: diminished breath sounds Cardiovascular: regular rate and rhythm Gastrointestinal: non-tender, soft Musculoskeletal: muscle tone Extremities: edema Neurological: other (No focal deficits) Results Result Diagram: 07/04/16 0350 07/04/16 0350 Results 24 hrs Laboratory Tests Test 07/04/16 00:45 07/04/16 03:50 Potassium Level 3.2 L 4.3 Anion Gap 10 Basophils # 0.0 Basophils % 0.1 Blood Morphology Comment Blood Urea Nitrogen 39 #H Calcium Level 8.0 L Carbon Dioxide Level 39 H Chloride Level 103 Creatinine 1.07 Eosinophils # 0.2 Eosinophils % 1.4 Glucose Level 110 Hematocrit 38.0 L Hemoglobin 11.4 L Lymphocytes # 1.7 Lymphocytes % 13.0 L Mean Corpuscular Hemoglobin 23.0 L Mean Corpuscular Hemoglobin Concent 29.9 L Mean Corpuscular Volume 76.8 L Mean Platelet Volume 10.0 Monocytes # 0.8 Monocytes % 6.3 Neutrophils # 10.2 H Neutrophils % 79.2 H Nucleated Red Blood Cells # 0.0 Nucleated Red Blood Cells % 0.0 Platelet Count 135 L Red Blood Count 4.94 Red Cell Distribution Width 19.4 H Sodium Level 148 H White Blood Count 12.9 H Medications Medications Current Medications Ondansetron HCl (Zofran Inj) 4 mg Q6H PRN IV NAUSEA AND/OR VOMITING; Start at 12:00 Nitroglycerin (Nitroglycerin (Sl Tab) 0.4 Mg) 1 tab Q5M PRN SL CHEST PAIN; Start 06/26/16 at 12:00 Acetaminophen (Tylenol Supp) 650 mg Q4H PRN [place] PAIN LEVEL 1-3 OR FEVER Last administered on 07/01/16 19:57; Admin Dose 650 MG; Start 06/26/16 at 12:00 Morphine Sulfate (morphine) 2 mg Q4H PRN IV PAIN LEVEL 7-10; Start 06/26/16 at 12:00 Lorazepam (Ativan) 1 mg Q2H PRN IV ANXIETY Last administered on 07/02/16 08:33 ; Admin Dose 1 MG; Start 06/26/16 at 12:00 Heparin Sodium (Porcine) 5000 unit 5,000 unit BID SC Last administered on 08:41; Admin Dose 5,000 UNIT; Start 06/26/16 at 21:00 Cefepime HCl (Maxipime 1gm/50 ml (Pmx)) 50 ml @ 100 mls/hr Q12 IVPB Last administered on 07/04/16 08:54; Admin Dose 100 MLS/HR; Start 06/26/16 at 15:00 IV Flush 10 ml 10 ml PRN PRN IV IV PROTOCOL; Start 06/27/16 at 16:30 Pantoprazole 80 mg/Sodium Chloride 100 ml @ 10 mls/hr Q10H IV Last administered on 07/04/16 08:56; Admin Dose 10 MLS/HR; Start 06/28/16 at 09:30 Vancomycin HCl/ Sodium Chloride (Vancocin/NS) 250 ml @ 83.333 mls/ hr Q24H IVPB Last administered on 07/03/16 21:54; Admin Dose 83.333 MLS/HR; Start at 22:00 Metoprolol Tartrate 25 mg 25 mg BID PO Last administered on 07/04/16 08:36; Admin Dose 25 MG; Start 06/28/16 at 21:00 Fentanyl/Dextrose (D5W) 100 ml @ 0 mls/hr TITRATE IV Last administered on 23:27; Admin Dose 5 MLS/HR; Start 06/29/16 at 15:30 Nystatin (Nystatin Susp) 5 ml TID PO Last administered on 07/04/16 08:36; Admin Dose 5 ML; Start 06/30/16 at 21:00 Hydralazine HCl 10 mg 10 mg Q8 PO Last administered on 07/03/16 05:42; Admin Dose 10 MG; Start 07/01/16 at 14:00 Dextrose 1,000 ml @ 75 mls/hr [id number] IV Last administered on 07/04/16 09:20; Admin Dose 75 MLS/HR; Start 07/02/16 at 09:30 Bumetanide/ Dextrose (Bumex/D5W) 250 ml @ 10 mls/hr Q24H IV Last administered on 07/03/16 14:50; Admin Dose 10 MLS/HR; Start 07/03/16 at 15:00 SEVERO STUBBS Jul 04, 2016 12:45
[2016-07-04] MEDS: BUMETANIDE 25 MG in DEXTROSE 5% 150 ML IV SCH (14:12)
--- NOTE | 2016-07-04 14:12 | PN ---
Date/Time of Note Date/Time of Note DATE: 07/04/16 TIME: 14:03 Assessment/Plan VTE Prophylaxis VTE Prophylaxis Intervention: heparin Lines/Catheters IV Catheter Type (from Nrs): PICC Line Central line still needed: Yes Urinary Cath still in place: Yes Reason Cath still needed: urinary retention Assessment/Plan Chief Complaint/Hosp Course Assessment/Plan: 36 yo unfortunate male with a past medical history of Bacterial Endocarditis finished 6 week course of IV antibiotics, Drug abuse, Nicotine abuse, Right popliteal thrombosis, PE (on Eliquis prior to admission), Microcytic anemia, CHF - diastolic, who came for worsening shortness of breath. 1. Shortness of breath - hypoxemic respiratory failure - multifactorial - heart failure acute on chronic - Vent dependent - intubated - f/u pulm recs - for CPAP trial today again 2. Sepsis - severe 2/2 to pneumonia (HCAP) + endocarditis - tachycardia/ leukocytosis - WBC still elevated - per ID, continue IV cefepime, levaquin, vanc - f/u respiratory cultures, monitor trend - improving - appreciate ID recs - improving 3. CHF - diastolic dysfunction acute on chronic - EF recent shows 40%, D shaped left ventricle - f/u CV rec's - f/u renal rec's, monitor UO 4. Hypernatremia - appreciate nephrology consult - improving - continue D5W IVF's as well per renal rec's (on lower rate today) 5. BESSIE - acute on chronic - 2/2 #2 - improving - monitor, f/u renal rec's. 6. Transaminitis - 2/2 to sepsis, or possible atypical pneumonia, monitor trend - improving 7. PE - heparin 8. Right popliteal thrombus - pt presently on heparin sub Q at this time 9. Microcytic anemia - monitor H/H, transfuse if hgb < 8 g/dL. Given low Fe levels, start ferricilit today 10. GI ppx - protonix drip for now, f/u GI rec's 11. DVT ppx - heparin dispo - f/u recs, palliative care consult - will monitor functional status - overall prognosis is poor - DNR/DNI - possible conversion to comfort care measures if deteriorating condition - consider surgical intervention critical care time today = 40 min Problems: Subjective 24 Hr Interval Summary Free Text/Dictation Pt still intubated. EEG performed yesterday. Exam/Review of Systems Vital Signs Vitals Vital Signs Date Time Temp Pulse Resp B/P Pulse Ox O2 Delivery O2 Flow Rate FiO2 07/04/16 12:15 90 16 92/50 100 07/04/16 11:30 Mechanical Ventilator 07/04/16 08:00 98.2 07/04/16 08:00 30 Intake and Output 07/03/16 07/03/16 07/04/16 15:00 23:00 07:00 Intake Total 695.0 ml 1171.666 ml 1093.334 ml Output Total 1520 ml 2450 ml 1600 ml Balance -825.0 ml -1278.334 ml -506.666 ml Exam Gen Evelyn: sedated/intubated HEENT: NC/AT, ETT in place NECK: supple, no thyromegaly THORAX: symmetrical, no obvious deformities CV: S1S2, RRR, III/ holosystolic murmur best heard over mitral area - blowing type Lungs: Coarse breath sounds, scattered wheezing, bibasilar crackles Abd: soft, NT/ND, +BS, no rebound, no guarding, neg HSM : scrotal edema, with some skin sloughing noted EXT: 1 + bilateral upper/lower extremities edema, no ecchymosis, no clubbing, FROM, mild cyanosis noted at phalanges bilaterally lower extremities Neuro: cannot assess - intubated/sedated Psych: agitated Results Result Diagram: 07/04/16 0350 07/04/16 0350 Results 24 hrs Laboratory Tests Test 07/04/16 00:45 07/04/16 03:50 Potassium Level 3.2 L 4.3 Anion Gap 10 Basophils # 0.0 Basophils % 0.1 Blood Morphology Comment Blood Urea Nitrogen 39 #H Calcium Level 8.0 L Carbon Dioxide Level 39 H Chloride Level 103 Creatinine 1.07 Eosinophils # 0.2 Eosinophils % 1.4 Glucose Level 110 Hematocrit 38.0 L Hemoglobin 11.4 L Lymphocytes # 1.7 Lymphocytes % 13.0 L Mean Corpuscular Hemoglobin 23.0 L Mean Corpuscular Hemoglobin Concent 29.9 L Mean Corpuscular Volume 76.8 L Mean Platelet Volume 10.0 Monocytes # 0.8 Monocytes % 6.3 Neutrophils # 10.2 H Neutrophils % 79.2 H Nucleated Red Blood Cells # 0.0 Nucleated Red Blood Cells % 0.0 Platelet Count 135 L Red Blood Count 4.94 Red Cell Distribution Width 19.4 H Sodium Level 148 H White Blood Count 12.9 H Medications Medications Current Medications Ondansetron HCl (Zofran Inj) 4 mg Q6H PRN IV NAUSEA AND/OR VOMITING; Start at 12:00 Nitroglycerin (Nitroglycerin (Sl Tab) 0.4 Mg) 1 tab Q5M PRN SL CHEST PAIN; Start 06/26/16 at 12:00 Acetaminophen (Tylenol Supp) 650 mg Q4H PRN [place] PAIN LEVEL 1-3 OR FEVER Last administered on 07/01/16 19:57; Admin Dose 650 MG; Start 06/26/16 at 12:00 Morphine Sulfate (morphine) 2 mg Q4H PRN IV PAIN LEVEL 7-10; Start 06/26/16 at 12:00 Lorazepam (Ativan) 1 mg Q2H PRN IV ANXIETY Last administered on 07/02/16 08:33 ; Admin Dose 1 MG; Start 06/26/16 at 12:00 Heparin Sodium (Porcine) 5000 unit 5,000 unit BID SC Last administered on 08:41; Admin Dose 5,000 UNIT; Start 06/26/16 at 21:00 Cefepime HCl (Maxipime 1gm/50 ml (Pmx)) 50 ml @ 100 mls/hr Q12 IVPB Last administered on 07/04/16 08:54; Admin Dose 100 MLS/HR; Start 06/26/16 at 15:00 IV Flush 10 ml 10 ml PRN PRN IV IV PROTOCOL; Start 06/27/16 at 16:30 Pantoprazole 80 mg/Sodium Chloride 100 ml @ 10 mls/hr Q10H IV Last administered on 07/04/16 08:56; Admin Dose 10 MLS/HR; Start 06/28/16 at 09:30 Vancomycin HCl/ Sodium Chloride (Vancocin/NS) 250 ml @ 83.333 mls/ hr Q24H IVPB Last administered on 07/03/16 21:54; Admin Dose 83.333 MLS/HR; Start at 22:00 Metoprolol Tartrate 25 mg 25 mg BID PO Last administered on 07/04/16 08:36; Admin Dose 25 MG; Start 06/28/16 at 21:00 Fentanyl/Dextrose (D5W) 100 ml @ 0 mls/hr TITRATE IV Last administered on 23:27; Admin Dose 5 MLS/HR; Start 06/29/16 at 15:30 Nystatin (Nystatin Susp) 5 ml TID PO Last administered on 07/04/16 08:36; Admin Dose 5 ML; Start 06/30/16 at 21:00 Hydralazine HCl 10 mg 10 mg Q8 PO Last administered on 07/03/16 05:42; Admin Dose 10 MG; Start 07/01/16 at 14:00 Dextrose 1,000 ml @ 75 mls/hr [id number] IV Last administered on 07/04/16 09:20; Admin Dose 75 MLS/HR; Start 07/02/16 at 09:30 Bumetanide 25 mg/ Dextrose 250 ml @ 10 mls/hr Q24H IV Last administered on 07/03 14:50; Admin Dose 10 MLS/HR; Start 07/03/16 at 15:00 Ferric Sodium Gluconate Complex/ Sodium Chloride (Ferrlecit/NS) 110 ml @ 100 mls/hr Q24H IVPB ; Start 07/04/16 at 14:30; Stop 07/06/16 at 15:35; Status ROBERTO BAKER Jul 04, 2016 14:12
--- NOTE | 2016-07-04 14:19 | CONS ---
Date/Time of Note Date/Time of Note DATE: 07/04/16 TIME: 14:17 Assessment/Plan Assessment/Plan Additional Assessment/Plan Microcytic anemia: - f/u occult blood. If occult blood negative, can dc protonix gtt and change to iv bid - replete with iv iron in process Transaminitis - 2/2 to sepsis, or possible to viral hepatitis given his IVDU history. Currently transaminase stable - HCV pos, awaiting HCV RNA and genotype Dysphagia -Start OG tube feed. Hold for residual greater than 150mL. Encephalopathy - ammonia WNL, likely 2/2 to Hepatitis C Shortness of breath - hypoxemic respiratory failure - multifactorial - heart failure acute on chronic - Vent dependent - intubated - f/u pulm recs Sepsis severe 2/2 to pneumonia - follow ID recs CHF - diastolic dysfunction acute on chronic - EF recent shows 40%, D shaped left ventricle - f/u cardiology Consultation Date/Type/Reason Admit Date/Time Jun 26, 2016 at 11:39 Type of Consultation: Cardiology Referring Provider: JC BROUSSARD MD 24 HR Interval Summary Free Text/Dictation Hemoglobin stable Transaminitis trending downward, repeat labs today Exam/Review of Systems Vital Signs Vitals Vital Signs Date Time Temp Pulse Resp B/P Pulse Ox O2 Delivery O2 Flow Rate FiO2 07/04/16 12:15 90 16 92/50 100 07/04/16 11:30 Mechanical Ventilator 07/04/16 08:00 98.2 07/04/16 08:00 30 Intake and Output 07/03/16 07/03/16 07/04/16 15:00 23:00 07:00 Intake Total 695.0 ml 1171.666 ml 1093.334 ml Output Total 1520 ml 2450 ml 1600 ml Balance -825.0 ml -1278.334 ml -506.666 ml Exam Psych: confusion Head: atraumatic, normocephalic Eyes: EOMI, nl conjunctiva, nl lids, nl sclera ENMT: mucosa pink and moist, nl external ears & nose, nl lips & teeth, nl nasal mucosa & septum Neck: non-tender, supple Respiratory: clear to auscultation, normal air movement Cardiovascular: nl pulses, regular rate and rhythm Gastrointestinal: bowel sounds, non-tender, soft Results Result Diagram: 07/04/16 0350 07/04/16 0350 Results 24 hrs Laboratory Tests Test 07/04/16 00:45 07/04/16 03:50 Potassium Level 3.2 L 4.3 Anion Gap 10 Basophils # 0.0 Basophils % 0.1 Blood Morphology Comment Blood Urea Nitrogen 39 #H Calcium Level 8.0 L Carbon Dioxide Level 39 H Chloride Level 103 Creatinine 1.07 Eosinophils # 0.2 Eosinophils % 1.4 Glucose Level 110 Hematocrit 38.0 L Hemoglobin 11.4 L Lymphocytes # 1.7 Lymphocytes % 13.0 L Mean Corpuscular Hemoglobin 23.0 L Mean Corpuscular Hemoglobin Concent 29.9 L Mean Corpuscular Volume 76.8 L Mean Platelet Volume 10.0 Monocytes # 0.8 Monocytes % 6.3 Neutrophils # 10.2 H Neutrophils % 79.2 H Nucleated Red Blood Cells # 0.0 Nucleated Red Blood Cells % 0.0 Platelet Count 135 L Red Blood Count 4.94 Red Cell Distribution Width 19.4 H Sodium Level 148 H White Blood Count 12.9 H Medications Medications Current Medications Ondansetron HCl (Zofran Inj) 4 mg Q6H PRN IV NAUSEA AND/OR VOMITING; Start at 12:00 Nitroglycerin (Nitroglycerin (Sl Tab) 0.4 Mg) 1 tab Q5M PRN SL CHEST PAIN; Start 06/26/16 at 12:00 Acetaminophen (Tylenol Supp) 650 mg Q4H PRN [place] PAIN LEVEL 1-3 OR FEVER Last administered on 07/01/16 19:57; Admin Dose 650 MG; Start 06/26/16 at 12:00 Morphine Sulfate (morphine) 2 mg Q4H PRN IV PAIN LEVEL 7-10; Start 06/26/16 at 12:00 Lorazepam (Ativan) 1 mg Q2H PRN IV ANXIETY Last administered on 07/02/16 08:33 ; Admin Dose 1 MG; Start 06/26/16 at 12:00 Heparin Sodium (Porcine) 5000 unit 5,000 unit BID SC Last administered on 08:41; Admin Dose 5,000 UNIT; Start 06/26/16 at 21:00 Cefepime HCl (Maxipime 1gm/50 ml (Pmx)) 50 ml @ 100 mls/hr Q12 IVPB Last administered on 07/04/16 08:54; Admin Dose 100 MLS/HR; Start 06/26/16 at 15:00 IV Flush 10 ml 10 ml PRN PRN IV IV PROTOCOL; Start 06/27/16 at 16:30 Pantoprazole 80 mg/Sodium Chloride 100 ml @ 10 mls/hr Q10H IV Last administered on 07/04/16 08:56; Admin Dose 10 MLS/HR; Start 06/28/16 at 09:30 Vancomycin HCl/ Sodium Chloride (Vancocin/NS) 250 ml @ 83.333 mls/ hr Q24H IVPB Last administered on 07/03/16 21:54; Admin Dose 83.333 MLS/HR; Start at 22:00 Metoprolol Tartrate 25 mg 25 mg BID PO Last administered on 07/04/16 08:36; Admin Dose 25 MG; Start 06/28/16 at 21:00 Fentanyl/Dextrose (D5W) 100 ml @ 0 mls/hr TITRATE IV Last administered on 23:27; Admin Dose 5 MLS/HR; Start 06/29/16 at 15:30 Nystatin (Nystatin Susp) 5 ml TID PO Last administered on 07/04/16 14:12; Admin Dose 5 ML; Start 06/30/16 at 21:00 Hydralazine HCl 10 mg 10 mg Q8 PO Last administered on 07/03/16 05:42; Admin Dose 10 MG; Start 07/01/16 at 14:00 Dextrose 1,000 ml @ 75 mls/hr [id number] IV Last administered on 07/04/16 09:20; Admin Dose 75 MLS/HR; Start 07/02/16 at 09:30 Bumetanide 25 mg/ Dextrose 250 ml @ 10 mls/hr Q24H IV Last administered on 07/04 14:12; Admin Dose 10 MLS/HR; Start 07/03/16 at 15:00 Ferric Sodium Gluconate Complex/ Sodium Chloride (Ferrlecit/NS) 110 ml @ 100 mls/hr Q24H IVPB ; Start 07/04/16 at 16:00; Stop 07/06/16 at 17:05 DARIUSZ GARZA Jul 04, 2016 14:19
[2016-07-04 15:00] LABS: ALBUMIN 2.3 g/dl (3.3-4.9)
[2016-07-04 15:03] LABS: BILIRUBIN,INDIRECT 0.5 mg/dl (0-1.1); BILIRUBIN,TOTAL 0.5 mg/dl (0.2-1.3)
--- NOTE | 2016-07-04 15:23 | CONS ---
DATE OF ADMISSION: 06/26/2016 DATE OF CONSULTATION: 07/04/2016 TYPE OF CONSULTATION: Pain management. HISTORY OF PRESENT ILLNESS: This is a 36-year-old gentleman who has a longstanding history of heroi n use, who has been admitted to [facility] for increasing shortness of breath. Th is gentleman has a history of chronic heart failure secondary to history of bacterial endocarditis w ith 40% ejection fraction, aortic regurgitation, moderate to severe, possible ongoing vegetation by echo and mitral regurgitation, moderate to severe. Recently seen at [facility] who has turned him down fo r cardiac surgery according to his mother, they wanted him to be in rehabilitation for a period of t rach prior to offering surgical intervention. He is admitted at this time for respiratory failure an d decompensated congestive heart failure secondary to the above. In speaking to his mom he has been on a combination of different street drugs for many years prior to this presentation. She states a pproximately 16 years. Additionally, she thinks that he may have used once again 1 week prior to th is hospitalization, but that is unclear. Patient's mother is very realistic and feels that if this is the lifestyle he is going to live and that there is no chance of significant recovery without tyrese gical intervention. She is seriously considering just comfort measures. This has been conveyed to her healthcare team and I am asked to speak with her concerning that decision. MEDICATIONS: Please refer to reconciliation sheets. ALLERGIES: NO KNOWN DRUG ALLERGIES. MAJOR MEDICAL PROBLEMS IN THE PAST: Including history of present illness. Also, history of hepatit is C, elevated liver functions tests, severe respiratory failure, encephalopathy. SOCIAL HISTORY: Unknown at this time. The patient lives in and out of his parent's home. For a pe riod of time, he was living on the street. FAMILY HISTORY: Deferred. REVIEW OF SYSTEMS: Cannot be obtained. FAMILY CONFERENCE: I have had an extended conference with the patient's mother at the bedside. She is very pragmatic states that she wanted to have some further studies to see what the possible etio logy for his encephalopathy is and thereafter make a decision whether or not she would like to [place] with this level of care. I did not push her to make a decision at all at this time, but agreed with her that it would be advantageous to rule out any other secondary reversible causes. She has 2 daughters and a who are intimately involved with the care of her son; however, she makes al l the decisions on his behalf when he cannot do so himself, although, he has expressed to her in the past that he would not want to live by artificial means. I will follow and support her decision. I do not believe there is any indication at this time to push her for a decision to discontinue care . The gentleman is young; there is a chance that his encephalopathy may improve and he may want to make that decision on his own behalf. Dictated By: JOELLEN VILLAR MD LP/BRANDO Conf#: [id number] DID#: [id number]
[2016-07-04] MEDS: SOD FERRIC GLUC COMPLX 125 MG in SOD CHLORIDE 0.9% 100 ML IVPB SCH ×2 (16:54→17:23)
[2016-07-04] MEDS: LORAZEPAM 2 MG INJ IV PRN (19:31)
[2016-07-04] MEDS: FENTAnyl 1,000 MCG in DEXTROSE 5% 80 ML IV SCH (19:31)
[2016-07-04 19:45] LABS: POTASSIUM 3.2 mmol/L (3.5-5.1)
[2016-07-04 19:47] LABS: CREATININE 1.01 mg/dl (0.61-1.24)
[2016-07-04 19:48] LABS: CALCIUM 7.8 mg/dl (8.4-10.2)
--- NOTE | 2016-07-04 20:06 | PN ---
Date/Time of Note Date/Time of Note DATE: 07/04/16 TIME: 20:05 Assessment/Plan Lines/Catheters IV Catheter Type (from Nrs): PICC Line Merino in Place (from Nrs): Yes Assessment/Plan Chief Complaint/Hosp Course IMPRESSION: 1. Endocarditis involving aortic and mitral valve. 2. Aortic regurgitation. 3. Mitral regurgitation. 4. Cardiomyopathy with diminished ejection fraction. 5. Renal failure. 6. History of drug use. 7. Elevation of the transaminases. 8. Coagulopathy. RECOMMENDATIONS: This patient is not a candidate to undergo surgery at the present time; too high risk for surgical repair. Please continue antibiotics. Discussed with the nursing staff. and the mother Family conference tomorrow Problems: Subjective 24 Hr Interval Summary Constitutional: improved Pain Control: mild Exam/Review of Systems Vital Signs Vitals Vital Signs Date Time Temp Pulse Resp B/P Pulse Ox O2 Delivery O2 Flow Rate FiO2 07/04/16 20:00 89 07/04/16 19:45 16 102/56 100 07/04/16 17:40 30 07/04/16 16:00 97.8 07/04/16 11:30 Mechanical Ventilator Intake and Output 07/03/16 07/03/16 07/04/16 15:00 23:00 07:00 Intake Total 695.0 ml 1171.666 ml 1093.334 ml Output Total 1520 ml 2450 ml 1600 ml Balance -825.0 ml -1278.334 ml -506.666 ml Exam ENMT: mucosa pink and moist, nl external ears & nose, nl lips & teeth, nl nasal mucosa & septum Neck: non-tender, supple Respiratory: clear to auscultation, normal air movement Cardiovascular: nl pulses, regular rate and rhythm Results Result Diagram: 07/04/16 0350 07/04/16 1925 KARI ZAMAN MD Jul 04, 2016 20:06
[2016-07-04] MEDS: VANCOMYCIN 1.5 GM in SOD CHLORIDE 0.9% 250 ML IVPB SCH (22:43)
[2016-07-05] VITALS (98 sets, daily range): BP systolic 86–137; BP diastolic 32–70; PULSE 94–151; RESP 12–35
[2016-07-05] MEDS: DEXTROSE 5% 1,000 ML IV SCH ×2 (01:30→16:42)
[2016-07-05 02:49] LABS: BASOPHIL # 0.1 10^3/ul (0.0-0.1); BASOPHILS % 0.4 % (0.0-2.0); EOSINOPHILS # 0.2 10^3/ul (0.0-0.5); EOSINOPHILS % 1.3 % (0.0-7.0); HEMATOCRIT 38.8 % (42.0-52.0); HEMOGLOBIN 11.9 g/dl (14.0-18.0); LYMPHOCYTES # 1.6 10^3/ul (0.8-2.9); LYMPHOCYTES % 12.2 % (15.0-51.0); MEAN CORPUSCULAR HGB CONC 30.7 g/dl (32.0-37.0); MEAN CORPUSCULAR VOLUME 75.1 fl (82.0-101.0); MEAN PLATELET VOLUME 9.9 fl (7.4-10.4); MONOCYTE # 0.9 10^3/ul (0.3-0.9); MONOCYTES % 6.5 % (0.0-11.0); NEUTROPHIL # 10.5 10^3/ul (1.6-7.5); NEUTROPHILS % 79.6 % (39.0-77.0); PLATELET COUNT 153 10^3/UL (140-440); RED BLOOD COUNT 5.16 10^6/ul (4.70-6.10); RED CELL DISTRIBUTION WIDTH 19.9 % (11.5-14.5); UNCORRECTED WBC 13.2 10^3/ul (4.8-10.8); WHITE BLOOD COUNT 13.2 10^3/ul (4.8-10.8)
[2016-07-05 02:51] LABS: POTASSIUM 3.7 mmol/L (3.5-5.1)
[2016-07-05 02:53] LABS: CREATININE 1.07 mg/dl (0.61-1.24)
[2016-07-05 02:54] LABS: CALCIUM 7.7 mg/dl (8.4-10.2)
[2016-07-05 03:02] LABS: CONDITION 1; LH ANALYZER COMMENTS 1
[2016-07-05] MEDS: POTASSIUM CHLORIDE 50 ML IVPB PRN ×5 (03:46→23:52)
[2016-07-05] MEDS: PANTOPRAZOLE IV 80 MG in SOD CHLORIDE 0.9% 100 ML IV SCH ×4 (05:02→22:45)
[2016-07-05] MEDS: POTASSIUM CHLORIDE 20 MEQ POWDER FOR ORAL SOLN GTB SCH ×2 (06:00→18:24)
[2016-07-05] MEDS: CEFEPIME 1GM/50 ML (PMX) 50 ML IVPB SCH ×2 (08:38→21:01)
[2016-07-05] MEDS: NYSTATIN SUSP 5 ML CUP PO SCH ×3 (08:38→21:01)
[2016-07-05] MEDS: HEPARIN 5,000 UNIT/0.5 ML SYG SC SCH ×2 (08:39→21:02)
[2016-07-05] MEDS: METOPROLOL 25 MG TAB PO SCH ×2 (09:00→21:00)
--- NOTE | 2016-07-05 09:53 | PN ---
DATE: 07/05/2016 Family conference was done with patient's father and sister. I had an extensive conversation with fredrick zhu's mother the prior day. I reviewed Mr. Ferrell's current medical problem, his past medical hi story, current treatment that he is receiving and plans to continue with this level of care. He did undergo a successful trial of CPAP 2 days ago, but yesterday was unstable, and unable to attempt a trial once again. The is very understanding. The patient's sister also understands the sev erity of his medical problems. We have made it very clear that we would like to continue with this level of care, and proceed with trying to extubate him, giving him the best chance of surviving this hospitalization, and not withdrawing care. They are in agreement with this at this time. Hopefull y will speak to his , as she was more in favor of discontinuing care and switching to co mfort measures, but at this time agrees to continue with current care. Will follow closely. Dictated By: JOELLEN VILLAR MD, LP/BRANDO Conf#: [id number] DID#: [id number]
[2016-07-05 10:14] LABS: BASOPHILS % 0.2 % (0.0-2.0); EOSINOPHILS # 0.1 10^3/ul (0.0-0.5); EOSINOPHILS % 1.2 % (0.0-7.0); HEMATOCRIT 38.6 % (42.0-52.0); HEMOGLOBIN 11.8 g/dl (14.0-18.0); LYMPHOCYTES # 1.3 10^3/ul (0.8-2.9); LYMPHOCYTES % 10.4 % (15.0-51.0); MEAN CORPUSCULAR HGB CONC 30.5 g/dl (32.0-37.0); MEAN CORPUSCULAR VOLUME 75.2 fl (82.0-101.0); MEAN PLATELET VOLUME 10.4 fl (7.4-10.4); MONOCYTE # 0.7 10^3/ul (0.3-0.9); MONOCYTES % 5.5 % (0.0-11.0); NEUTROPHILS % 82.7 % (39.0-77.0); PLATELET COUNT 167 10^3/UL (140-440); RED BLOOD COUNT 5.13 10^6/ul (4.70-6.10); RED CELL DISTRIBUTION WIDTH 19.7 % (11.5-14.5); UNCORRECTED WBC 12.1 10^3/ul (4.8-10.8); WHITE BLOOD COUNT 12.1 10^3/ul (4.8-10.8)
[2016-07-05 10:18] LABS: CONDITION 1; LH ANALYZER COMMENTS 1
[2016-07-05 10:23] LABS: POTASSIUM 3.8 mmol/L (3.5-5.1)
[2016-07-05 10:26] LABS: CREATININE 1.14 mg/dl (0.61-1.24)
[2016-07-05 10:27] LABS: CALCIUM 7.8 mg/dl (8.4-10.2)
--- NOTE | 2016-07-05 11:07 | CONS ---
Date/Time of Note Date/Time of Note DATE: 07/05/16 TIME: 11:06 Consult Date/Type/Reason Admit Date/Time Jun 26, 2016 at 11:39 Type of Consultation: pulm Ordering Provider: JC BROUSSARD MD Subjective Comfortable Continues mechanical ventilation Opens eyes off sedation Currently hemodynamically stable Objective Vital Signs Date Time Temp Pulse Resp B/P Pulse Ox O2 Delivery O2 Flow Rate FiO2 07/05/16 10:15 106 16 105/58 99 Mechanical Ventilator 07/05/16 08:00 99.8 07/05/16 08:00 30 Intake and Output 07/04/16 07/04/16 07/05/16 15:00 23:00 07:00 Intake Total 430 ml 1484 ml 1564.9 ml Output Total 810 ml 470 ml 760 ml Balance -380 ml 1014 ml 804.9 ml PHYSICAL EXAMINATION: GENERAL: A chronically ill-appearing gentleman, intubated on mechanical ventilation, comfortable at rest, no acute distress. VITAL SIGNS: As above NECK: Supple. No JVD or lymphadenopathy. CARDIAC: S1, S2, no added sounds or murmurs. CHEST: Diminished air entry bilaterally. ABDOMEN: Soft, nontender. No guarding or rebound. EXTREMITIES: No cyanosis, clubbing, edema. NEUROLOGIC: Unable to assess. Results/Medications Result Diagram: 07/05/16 0900 07/05/16 0900 Results 24 hrs Laboratory Tests Test 07/04/16 19:25 07/04/16 21:50 07/05/16 02:30 07/05/16 09:00 Anion Gap 12 13 12 Blood Urea Nitrogen 39 H 40 H 42 H Calcium Level 7.8 L 7.7 L 7.8 L Carbon Dioxide Level 36 H 33 H 35 H Chloride Level 101 104 102 Creatinine 1.01 1.07 1.14 Glucose Level 140 110 148 Potassium Level 3.2 L 3.7 3.8 Sodium Level 146 H 146 H 145 H Vancomycin Level Trough 11.9 Basophils # 0.1 0.0 Basophils % 0.4 0.2 Blood Morphology Comment Eosinophils # 0.2 0.1 Eosinophils % 1.3 1.2 Hematocrit 38.8 L 38.6 L Hemoglobin 11.9 L 11.8 L Lymphocytes # 1.6 1.3 Lymphocytes % 12.2 L 10.4 L Mean Corpuscular Hemoglobin 23.0 L 23.0 L Mean Corpuscular Hemoglobin Concent 30.7 L 30.5 L Mean Corpuscular Volume 75.1 L 75.2 L Mean Platelet Volume 9.9 10.4 Monocytes # 0.9 0.7 Monocytes % 6.5 5.5 Neutrophils # 10.5 H 10.0 H Neutrophils % 79.6 H 82.7 H Nucleated Red Blood Cells # 0.0 0.0 Nucleated Red Blood Cells % 0.0 0.0 Platelet Count 153 167 Red Blood Count 5.16 5.13 Red Cell Distribution Width 19.9 H 19.7 H White Blood Count 13.2 H 12.1 H Medications Current Medications Ondansetron HCl (Zofran Inj) 4 mg Q6H PRN IV NAUSEA AND/OR VOMITING; Start at 12:00 Nitroglycerin (Nitroglycerin (Sl Tab) 0.4 Mg) 1 tab Q5M PRN SL CHEST PAIN; Start 06/26/16 at 12:00 Acetaminophen (Tylenol Supp) 650 mg Q4H PRN [place] PAIN LEVEL 1-3 OR FEVER Last administered on 07/01/16 19:57; Admin Dose 650 MG; Start 06/26/16 at 12:00 Morphine Sulfate (morphine) 2 mg Q4H PRN IV PAIN LEVEL 7-10; Start 06/26/16 at 12:00 Lorazepam (Ativan) 1 mg Q2H PRN IV ANXIETY Last administered on 07/04/16 19:31 ; Admin Dose 1 MG; Start 06/26/16 at 12:00 Heparin Sodium (Porcine) 5000 unit 5,000 unit BID SC Last administered on 08:39; Admin Dose 5,000 UNIT; Start 06/26/16 at 21:00 Cefepime HCl (Maxipime 1gm/50 ml (Pmx)) 50 ml @ 100 mls/hr Q12 IVPB Last administered on 07/05/16 08:38; Admin Dose 100 MLS/HR; Start 06/26/16 at 15:00 IV Flush 10 ml 10 ml PRN PRN IV IV PROTOCOL; Start 06/27/16 at 16:30 Pantoprazole/ Sodium Chloride (Protonix Iv/NS) 100 ml @ 10 mls/hr Q10H IV Last administered on 07/05/16 05:02; Admin Dose 10 MLS/HR; Start 06/28/16 at 09 :30 Metoprolol Tartrate 25 mg 25 mg BID PO Last administered on 07/04/16 08:36; Admin Dose 25 MG; Start 06/28/16 at 21:00 Fentanyl/Dextrose (D5W) 100 ml @ 0 mls/hr TITRATE IV Last administered on 19:31; Admin Dose 5 MLS/HR; Start 06/29/16 at 15:30 Nystatin (Nystatin Susp) 5 ml TID PO Last administered on 07/05/16 08:38; Admin Dose 5 ML; Start 06/30/16 at 21:00 Hydralazine HCl 10 mg 10 mg Q8 PO Last administered on 07/05/16 06:25; Admin Dose 10 MG; Start 07/01/16 at 14:00 Dextrose 1,000 ml @ 75 mls/hr [id number] IV Last administered on 07/05/16 01:30; Admin Dose 75 MLS/HR; Start 07/02/16 at 09:30 Bumetanide 25 mg/ Dextrose 250 ml @ 10 mls/hr Q24H IV Last administered on 07/04 14:12; Admin Dose 10 MLS/HR; Start 07/03/16 at 15:00 Ferric Sodium Gluconate Complex 125 mg/Sodium Chloride 110 ml @ 100 mls/hr Q24H IVPB Last administered on 07/04/16 17:23; Admin Dose 100 MLS/HR; Start 07/04/16 at 16:00; Stop 07/06/16 at 17:05 Vancomycin HCl/ Sodium Chloride (Vancocin/NS) 500 ml @ 125 mls/hr Q24H IVPB ; Start 07/05/16 at 22:00 Assessment/Plan Chief Complaint/Hosp Course IMPRESSION AND PLAN: 1. Hypoxemic respiratory failure. Secondary to congestive cardiac failure 2. Possible component of community-acquired pneumonia. 3. Bacterial endocarditis with valvular heart disease. 4. History of intravenous drug abuse. 5. History of pulmonary embolus. 6. Renal insufficiency The patient will require: 1. Continued mechanical ventilation. Repeat cpap in am 2. Diuresis if tolerated. 3. Broad-spectrum antibiotics. 4. DVT and GI prophylaxis. 5. d/w cardiology, agree with transfer to tertiary care center I had a long discussion with patient's family at bedside They wish to proceed with tracheostomy he does not come off mechanical ventilation Patient's condition is guarded but not terminal I think he would benefit from tracheostomy long-term antibiotics and possible valve replacement in the future if needed Problems: ASAD DAS MD, [facility] Jul 05, 2016 11:07
--- NOTE | 2016-07-05 11:17 | CONS ---
Date/Time of Note Date/Time of Note DATE: 07/05/16 TIME: 11:13 Assessment/Plan Assessment/Plan Chief Complaint/Hosp Course IMPRESSION: 1. Congestive heart failure exacerbation, systolic, acute on chronic with last known EF approximately 40% by echo May 2016. 2. Aortic regurgitation, moderate to severe with possible ongoing vegetation by most recent echo May 2016. 3. Mitral regurgitation, moderate to severe. 4. History of recent endocarditis status post 6-week course of antibiotics. 5. Cardiomyopathy with decreased left ventricular ejection fraction last approximately 40% by echo 06/14/2016. 6. Coagulopathy. 7. Renal failure-slowly improving 8. Hypokalemia 9. Increased LFTs. 10. Increased BNP. 11. Leukocytosis. 12. Mild anemia. 13.Resp failure s/p intubation 14. s/p Code blue 15.DNR Recc: -Tele -Follow volume status closely with ongoing Bumex diuresis -Low dose BB/hydralazine as tolerated only -Per CT surgery not a candidate for valve replacement at this time due to high risk -F/U blood cultures -Continue abx's -Family deciding about direction of care currently with ongoing discussion Problems: Consultation Date/Type/Reason Admit Date/Time Jun 26, 2016 at 11:39 Initial Consult Date 06/27/2016 Type of Consultation: Cardiology Reason for Consultation CHF/AR/MR Referring Provider: JC BROUSSARD MD Exam/Review of Systems Vital Signs Vitals Vital Signs Date Time Temp Pulse Resp B/P Pulse Ox O2 Delivery O2 Flow Rate FiO2 07/05/16 10:15 106 16 105/58 99 Mechanical Ventilator 07/05/16 08:00 99.8 07/05/16 08:00 30 Intake and Output 07/04/16 07/04/16 07/05/16 15:00 23:00 07:00 Intake Total 430 ml 1484 ml 1564.9 ml Output Total 810 ml 470 ml 760 ml Balance -380 ml 1014 ml 804.9 ml Exam Review of Systems: CONSTITUTIONAL: No fevers, chills. PULMONARY: intubated CARDIOVASCULAR: No obvious chest pain/palpitations GASTROINTESTINAL: No nausea/vomiting. GENITOURINARY: No hematuria/dysuria. MUSCULOSKELETAL: No obvious myagias/arthalgias. PSYCHIATRIC: No documented depression. NEUROLOGIC: No focal weakness Constitutional: alert Psych: no complaints Head: normocephalic ENMT: mucosa pink and moist Neck: jvd (9-10 cm water), supple Respiratory: diminished breath sounds Cardiovascular: regular rate and rhythm Gastrointestinal: non-tender, soft Musculoskeletal: muscle tone Extremities: edema Neurological: other (No focal deficits) Results Result Diagram: 07/05/16 0900 07/05/16 0900 Results 24 hrs Laboratory Tests Test 07/04/16 19:25 07/04/16 21:50 07/05/16 02:30 07/05/16 09:00 Anion Gap 12 13 12 Blood Urea Nitrogen 39 H 40 H 42 H Calcium Level 7.8 L 7.7 L 7.8 L Carbon Dioxide Level 36 H 33 H 35 H Chloride Level 101 104 102 Creatinine 1.01 1.07 1.14 Glucose Level 140 110 148 Potassium Level 3.2 L 3.7 3.8 Sodium Level 146 H 146 H 145 H Vancomycin Level Trough 11.9 Basophils # 0.1 0.0 Basophils % 0.4 0.2 Blood Morphology Comment Eosinophils # 0.2 0.1 Eosinophils % 1.3 1.2 Hematocrit 38.8 L 38.6 L Hemoglobin 11.9 L 11.8 L Lymphocytes # 1.6 1.3 Lymphocytes % 12.2 L 10.4 L Mean Corpuscular Hemoglobin 23.0 L 23.0 L Mean Corpuscular Hemoglobin Concent 30.7 L 30.5 L Mean Corpuscular Volume 75.1 L 75.2 L Mean Platelet Volume 9.9 10.4 Monocytes # 0.9 0.7 Monocytes % 6.5 5.5 Neutrophils # 10.5 H 10.0 H Neutrophils % 79.6 H 82.7 H Nucleated Red Blood Cells # 0.0 0.0 Nucleated Red Blood Cells % 0.0 0.0 Platelet Count 153 167 Red Blood Count 5.16 5.13 Red Cell Distribution Width 19.9 H 19.7 H White Blood Count 13.2 H 12.1 H Medications Medications Current Medications Ondansetron HCl (Zofran Inj) 4 mg Q6H PRN IV NAUSEA AND/OR VOMITING; Start at 12:00 Nitroglycerin (Nitroglycerin (Sl Tab) 0.4 Mg) 1 tab Q5M PRN SL CHEST PAIN; Start 06/26/16 at 12:00 Acetaminophen (Tylenol Supp) 650 mg Q4H PRN [place] PAIN LEVEL 1-3 OR FEVER Last administered on 07/01/16 19:57; Admin Dose 650 MG; Start 06/26/16 at 12:00 Morphine Sulfate (morphine) 2 mg Q4H PRN IV PAIN LEVEL 7-10; Start 06/26/16 at 12:00 Lorazepam (Ativan) 1 mg Q2H PRN IV ANXIETY Last administered on 07/04/16 19:31 ; Admin Dose 1 MG; Start 06/26/16 at 12:00 Heparin Sodium (Porcine) 5000 unit 5,000 unit BID SC Last administered on 08:39; Admin Dose 5,000 UNIT; Start 06/26/16 at 21:00 Cefepime HCl (Maxipime 1gm/50 ml (Pmx)) 50 ml @ 100 mls/hr Q12 IVPB Last administered on 07/05/16 08:38; Admin Dose 100 MLS/HR; Start 06/26/16 at 15:00 IV Flush 10 ml 10 ml PRN PRN IV IV PROTOCOL; Start 06/27/16 at 16:30 Pantoprazole/ Sodium Chloride (Protonix Iv/NS) 100 ml @ 10 mls/hr Q10H IV Last administered on 07/05/16 05:02; Admin Dose 10 MLS/HR; Start 06/28/16 at 09 :30 Metoprolol Tartrate 25 mg 25 mg BID PO Last administered on 07/04/16 08:36; Admin Dose 25 MG; Start 06/28/16 at 21:00 Fentanyl/Dextrose (D5W) 100 ml @ 0 mls/hr TITRATE IV Last administered on 19:31; Admin Dose 5 MLS/HR; Start 06/29/16 at 15:30 Nystatin (Nystatin Susp) 5 ml TID PO Last administered on 07/05/16 08:38; Admin Dose 5 ML; Start 06/30/16 at 21:00 Hydralazine HCl 10 mg 10 mg Q8 PO Last administered on 07/05/16 06:25; Admin Dose 10 MG; Start 07/01/16 at 14:00 Dextrose 1,000 ml @ 75 mls/hr [id number] IV Last administered on 07/05/16 01:30; Admin Dose 75 MLS/HR; Start 07/02/16 at 09:30 Bumetanide 25 mg/ Dextrose 250 ml @ 10 mls/hr Q24H IV Last administered on 07/04 14:12; Admin Dose 10 MLS/HR; Start 07/03/16 at 15:00 Ferric Sodium Gluconate Complex 125 mg/Sodium Chloride 110 ml @ 100 mls/hr Q24H IVPB Last administered on 07/04/16 17:23; Admin Dose 100 MLS/HR; Start 07/04/16 at 16:00; Stop 07/06/16 at 17:05 Vancomycin HCl/ Sodium Chloride (Vancocin/NS) 500 ml @ 125 mls/hr Q24H IVPB ; Start 07/05/16 at 22:00 SEVERO STUBBS Jul 05, 2016 11:16
--- NOTE | 2016-07-05 11:55 | PN ---
Date/Time of Note Date/Time of Note DATE: 07/05/16 TIME: 11:48 Assessment/Plan VTE Prophylaxis VTE Prophylaxis Intervention: heparin Lines/Catheters IV Catheter Type (from Nrs): PICC Line Central line still needed: Yes Urinary Cath still in place: Yes Reason Cath still needed: urinary retention Assessment/Plan Chief Complaint/Hosp Course Assessment/Plan: 36 yo unfortunate male with a past medical history of Bacterial Endocarditis finished 6 week course of IV antibiotics, Drug abuse, Nicotine abuse, Right popliteal thrombosis, PE (on Eliquis prior to admission), Microcytic anemia, CHF - diastolic, who came for worsening shortness of breath. 1. Shortness of breath - hypoxemic respiratory failure - multifactorial - heart failure acute on chronic - Vent dependent - intubated - f/u pulm recs, CV as well - for CPAP trial tomorrow 2. Sepsis - severe 2/2 to pneumonia (HCAP) + endocarditis - tachycardia/ leukocytosis - WBC still slightly elevated - per ID, continue IV cefepime, levaquin, vanc - f/u respiratory cultures, - appreciate ID recs 3. CHF - diastolic dysfunction acute on chronic - EF recent shows 40%, D shaped left ventricle - f/u CV rec's - f/u renal rec's, monitor UO 4. Hypernatremia - appreciate nephrology consult - improving - f/u renal rec's 5. BESSIE - acute on chronic - 2/2 #2 - improving - monitor, f/u renal rec's. 6. Transaminitis - 2/2 to sepsis, or possible atypical pneumonia, monitor trend - improving 7. PE - heparin 8. Right popliteal thrombus - pt presently on heparin sub Q at this time 9. Microcytic anemia - monitor H/H, transfuse if hgb < 8 g/dL. Given low Fe levels, start ferricilit today 10. GI ppx - protonix drip for now, f/u GI rec's 11. DVT ppx - heparin dispo - f/u recs, appreciate palliative care consult - will monitor functional status - overall prognosis is poor - DNR/DNI - family agrees to continue current care, considering trach placement as well - plan would be longterm abx tx and possible valve replacement surgery in future if more medically stable then critical care time today = 40 min Problems: Subjective 24 Hr Interval Summary Free Text/Dictation Pt still intubated, not able to weaned off vent. Family updated by palliative care and pulm teams. Exam/Review of Systems Vital Signs Vitals Vital Signs Date Time Temp Pulse Resp B/P Pulse Ox O2 Delivery O2 Flow Rate FiO2 07/05/16 10:15 106 16 105/58 99 Mechanical Ventilator 07/05/16 08:00 99.8 07/05/16 08:00 30 Intake and Output 07/04/16 07/04/16 07/05/16 15:00 23:00 07:00 Intake Total 430 ml 1484 ml 1564.9 ml Output Total 810 ml 470 ml 760 ml Balance -380 ml 1014 ml 804.9 ml Exam Gen Evelyn: intubated HEENT: NC/AT, ETT in place NECK: supple, no thyromegaly THORAX: symmetrical, no obvious deformities CV: S1S2, RRR, III/ holosystolic murmur best heard over mitral area - blowing type Lungs: Coarse breath sounds, scattered wheezing, bibasilar crackles Abd: soft, NT/ND, +BS, no rebound, no guarding, neg HSM : scrotal edema, with some skin sloughing noted EXT: 1 + bilateral upper/lower extremities edema, no ecchymosis, no clubbing, FROM, mild cyanosis noted at phalanges bilaterally lower extremities Neuro: intubated Psych: agitated at times Results Result Diagram: 07/05/16 0900 07/05/16 0900 Results 24 hrs Laboratory Tests Test 07/04/16 19:25 07/04/16 21:50 07/05/16 02:30 07/05/16 09:00 Anion Gap 12 13 12 Blood Urea Nitrogen 39 H 40 H 42 H Calcium Level 7.8 L 7.7 L 7.8 L Carbon Dioxide Level 36 H 33 H 35 H Chloride Level 101 104 102 Creatinine 1.01 1.07 1.14 Glucose Level 140 110 148 Potassium Level 3.2 L 3.7 3.8 Sodium Level 146 H 146 H 145 H Vancomycin Level Trough 11.9 Basophils # 0.1 0.0 Basophils % 0.4 0.2 Blood Morphology Comment Eosinophils # 0.2 0.1 Eosinophils % 1.3 1.2 Hematocrit 38.8 L 38.6 L Hemoglobin 11.9 L 11.8 L Lymphocytes # 1.6 1.3 Lymphocytes % 12.2 L 10.4 L Mean Corpuscular Hemoglobin 23.0 L 23.0 L Mean Corpuscular Hemoglobin Concent 30.7 L 30.5 L Mean Corpuscular Volume 75.1 L 75.2 L Mean Platelet Volume 9.9 10.4 Monocytes # 0.9 0.7 Monocytes % 6.5 5.5 Neutrophils # 10.5 H 10.0 H Neutrophils % 79.6 H 82.7 H Nucleated Red Blood Cells # 0.0 0.0 Nucleated Red Blood Cells % 0.0 0.0 Platelet Count 153 167 Red Blood Count 5.16 5.13 Red Cell Distribution Width 19.9 H 19.7 H White Blood Count 13.2 H 12.1 H Medications Medications Current Medications Ondansetron HCl (Zofran Inj) 4 mg Q6H PRN IV NAUSEA AND/OR VOMITING; Start at 12:00 Nitroglycerin (Nitroglycerin (Sl Tab) 0.4 Mg) 1 tab Q5M PRN SL CHEST PAIN; Start 06/26/16 at 12:00 Acetaminophen (Tylenol Supp) 650 mg Q4H PRN [place] PAIN LEVEL 1-3 OR FEVER Last administered on 07/01/16 19:57; Admin Dose 650 MG; Start 06/26/16 at 12:00 Morphine Sulfate (morphine) 2 mg Q4H PRN IV PAIN LEVEL 7-10; Start 06/26/16 at 12:00 Lorazepam (Ativan) 1 mg Q2H PRN IV ANXIETY Last administered on 07/04/16 19:31 ; Admin Dose 1 MG; Start 06/26/16 at 12:00 Heparin Sodium (Porcine) 5000 unit 5,000 unit BID SC Last administered on 08:39; Admin Dose 5,000 UNIT; Start 06/26/16 at 21:00 Cefepime HCl (Maxipime 1gm/50 ml (Pmx)) 50 ml @ 100 mls/hr Q12 IVPB Last administered on 07/05/16 08:38; Admin Dose 100 MLS/HR; Start 06/26/16 at 15:00 IV Flush 10 ml 10 ml PRN PRN IV IV PROTOCOL; Start 06/27/16 at 16:30 Pantoprazole/ Sodium Chloride (Protonix Iv/NS) 100 ml @ 10 mls/hr Q10H IV Last administered on 07/05/16 05:02; Admin Dose 10 MLS/HR; Start 06/28/16 at 09 :30 Metoprolol Tartrate 25 mg 25 mg BID PO Last administered on 07/04/16 08:36; Admin Dose 25 MG; Start 06/28/16 at 21:00 Fentanyl/Dextrose (D5W) 100 ml @ 0 mls/hr TITRATE IV Last administered on 19:31; Admin Dose 5 MLS/HR; Start 06/29/16 at 15:30 Nystatin (Nystatin Susp) 5 ml TID PO Last administered on 07/05/16 08:38; Admin Dose 5 ML; Start 06/30/16 at 21:00 Hydralazine HCl 10 mg 10 mg Q8 PO Last administered on 07/05/16 06:25; Admin Dose 10 MG; Start 07/01/16 at 14:00 Dextrose 1,000 ml @ 75 mls/hr [id number] IV Last administered on 07/05/16 01:30; Admin Dose 75 MLS/HR; Start 07/02/16 at 09:30 Bumetanide 25 mg/ Dextrose 250 ml @ 10 mls/hr Q24H IV Last administered on 07/04 14:12; Admin Dose 10 MLS/HR; Start 07/03/16 at 15:00 Ferric Sodium Gluconate Complex 125 mg/Sodium Chloride 110 ml @ 100 mls/hr Q24H IVPB Last administered on 07/04/16 17:23; Admin Dose 100 MLS/HR; Start 07/04/16 at 16:00; Stop 07/06/16 at 17:05 Vancomycin HCl/ Sodium Chloride (Vancocin/NS) 500 ml @ 125 mls/hr Q24H IVPB ; Start 07/05/16 at 22:00 ROBERTO DAVISON Jul 05, 2016 11:55
--- NOTE | 2016-07-05 13:04 | PN ---
Date/Time of Note Date/Time of Note DATE: 07/05/16 TIME: 13:04 Assessment/Plan Lines/Catheters IV Catheter Type (from Nrs): PICC Line Merino in Place (from Nrs): Yes Assessment/Plan Chief Complaint/Hosp Course IMPRESSION: 1. Endocarditis involving aortic and mitral valve. 2. Aortic regurgitation. 3. Mitral regurgitation. 4. Cardiomyopathy with diminished ejection fraction. 5. Renal failure. 6. History of drug use. 7. Elevation of the transaminases. 8. Coagulopathy. RECOMMENDATIONS: This patient is not a candidate to undergo surgery at the present time; too high risk for surgical repair. Please continue antibiotics. Discussed with the nursing staff. and the mother Family conference tomorrow Problems: Subjective 24 Hr Interval Summary Constitutional: improved Pain Control: mild Exam/Review of Systems Vital Signs Vitals Vital Signs Date Time Temp Pulse Resp B/P Pulse Ox O2 Delivery O2 Flow Rate FiO2 07/05/16 12:30 115 19 109/57 96 Mechanical Ventilator 07/05/16 12:27 30 07/05/16 12:00 98.9 Intake and Output 07/04/16 07/04/16 07/05/16 15:00 23:00 07:00 Intake Total 430 ml 1484 ml 1564.9 ml Output Total 810 ml 470 ml 760 ml Balance -380 ml 1014 ml 804.9 ml Exam ENMT: mucosa pink and moist, nl external ears & nose, nl lips & teeth, nl nasal mucosa & septum Neck: non-tender, supple Respiratory: clear to auscultation, normal air movement Cardiovascular: nl pulses, regular rate and rhythm Results Result Diagram: 07/05/16 0900 07/05/16 0900 KARI ZAMAN MD Jul 05, 2016 13:04
--- NOTE | 2016-07-05 13:35 | CONS ---
Date/Time of Note Date/Time of Note DATE: 07/05/16 TIME: 13:33 Assessment/Plan Assessment/Plan Additional Assessment/Plan Microcytic anemia: - f/u occult blood. If occult blood negative, can dc protonix gtt and change to iv bid - replete with iv iron in process Transaminitis - 2/2 to sepsis, or possible to viral hepatitis given his IVDU history. Currently transaminase stable - HCV pos, awaiting HCV RNA and genotype Dysphagia - OG tube feed. Hold for residual greater than 150mL. Encephalopathy - ammonia WNL, likely 2/2 to Hepatitis C Shortness of breath - hypoxemic respiratory failure - multifactorial - heart failure acute on chronic - Vent dependent - intubated - f/u pulm recs Sepsis severe 2/2 to pneumonia - follow ID recs CHF - diastolic dysfunction acute on chronic - EF recent shows 40%, D shaped left ventricle - f/u cardiology Consultation Date/Type/Reason Admit Date/Time Jun 26, 2016 at 11:39 Type of Consultation: Gastroenterology Referring Provider: JC BROUSSARD MD 24 HR Interval Summary Free Text/Dictation OG tube feed at 40 with minimal residual Currently being weaned off ventilator Hemoglobin stable Exam/Review of Systems Vital Signs Vitals Vital Signs Date Time Temp Pulse Resp B/P Pulse Ox O2 Delivery O2 Flow Rate FiO2 07/05/16 12:30 115 19 109/57 96 Mechanical Ventilator 07/05/16 12:27 30 07/05/16 12:00 98.9 Intake and Output 07/04/16 07/04/16 07/05/16 15:00 23:00 07:00 Intake Total 430 ml 1534 ml 1564.9 ml Output Total 810 ml 700 ml 760 ml Balance -380 ml 834 ml 804.9 ml Exam Psych: confusion Head: atraumatic, normocephalic Eyes: EOMI, nl conjunctiva, nl lids, nl sclera ENMT: mucosa pink and moist, nl external ears & nose, nl lips & teeth, nl nasal mucosa & septum Neck: non-tender, supple Respiratory: clear to auscultation, normal air movement Cardiovascular: nl pulses, regular rate and rhythm Gastrointestinal: bowel sounds, non-tender, soft Results Result Diagram: 07/05/16 0900 07/05/16 0900 Results 24 hrs Laboratory Tests Test 07/04/16 19:25 07/04/16 21:50 07/05/16 02:30 07/05/16 09:00 Anion Gap 12 13 12 Blood Urea Nitrogen 39 H 40 H 42 H Calcium Level 7.8 L 7.7 L 7.8 L Carbon Dioxide Level 36 H 33 H 35 H Chloride Level 101 104 102 Creatinine 1.01 1.07 1.14 Glucose Level 140 110 148 Potassium Level 3.2 L 3.7 3.8 Sodium Level 146 H 146 H 145 H Vancomycin Level Trough 11.9 Basophils # 0.1 0.0 Basophils % 0.4 0.2 Blood Morphology Comment Eosinophils # 0.2 0.1 Eosinophils % 1.3 1.2 Hematocrit 38.8 L 38.6 L Hemoglobin 11.9 L 11.8 L Lymphocytes # 1.6 1.3 Lymphocytes % 12.2 L 10.4 L Mean Corpuscular Hemoglobin 23.0 L 23.0 L Mean Corpuscular Hemoglobin Concent 30.7 L 30.5 L Mean Corpuscular Volume 75.1 L 75.2 L Mean Platelet Volume 9.9 10.4 Monocytes # 0.9 0.7 Monocytes % 6.5 5.5 Neutrophils # 10.5 H 10.0 H Neutrophils % 79.6 H 82.7 H Nucleated Red Blood Cells # 0.0 0.0 Nucleated Red Blood Cells % 0.0 0.0 Platelet Count 153 167 Red Blood Count 5.16 5.13 Red Cell Distribution Width 19.9 H 19.7 H White Blood Count 13.2 H 12.1 H Medications Medications Current Medications Ondansetron HCl (Zofran Inj) 4 mg Q6H PRN IV NAUSEA AND/OR VOMITING; Start at 12:00 Nitroglycerin (Nitroglycerin (Sl Tab) 0.4 Mg) 1 tab Q5M PRN SL CHEST PAIN; Start 06/26/16 at 12:00 Acetaminophen (Tylenol Supp) 650 mg Q4H PRN [place] PAIN LEVEL 1-3 OR FEVER Last administered on 07/01/16 19:57; Admin Dose 650 MG; Start 06/26/16 at 12:00 Morphine Sulfate (morphine) 2 mg Q4H PRN IV PAIN LEVEL 7-10; Start 06/26/16 at 12:00 Lorazepam (Ativan) 1 mg Q2H PRN IV ANXIETY Last administered on 07/04/16 19:31 ; Admin Dose 1 MG; Start 06/26/16 at 12:00 Heparin Sodium (Porcine) 5000 unit 5,000 unit BID SC Last administered on 08:39; Admin Dose 5,000 UNIT; Start 06/26/16 at 21:00 Cefepime HCl (Maxipime 1gm/50 ml (Pmx)) 50 ml @ 100 mls/hr Q12 IVPB Last administered on 07/05/16 08:38; Admin Dose 100 MLS/HR; Start 06/26/16 at 15:00 IV Flush 10 ml 10 ml PRN PRN IV IV PROTOCOL; Start 06/27/16 at 16:30 Pantoprazole/ Sodium Chloride (Protonix Iv/NS) 100 ml @ 10 mls/hr Q10H IV Last administered on 07/05/16 05:02; Admin Dose 10 MLS/HR; Start 06/28/16 at 09 :30 Metoprolol Tartrate 25 mg 25 mg BID PO Last administered on 07/04/16 08:36; Admin Dose 25 MG; Start 06/28/16 at 21:00 Fentanyl/Dextrose (D5W) 100 ml @ 0 mls/hr TITRATE IV Last administered on 19:31; Admin Dose 5 MLS/HR; Start 06/29/16 at 15:30 Nystatin (Nystatin Susp) 5 ml TID PO Last administered on 07/05/16 08:38; Admin Dose 5 ML; Start 06/30/16 at 21:00 Hydralazine HCl 10 mg 10 mg Q8 PO Last administered on 07/05/16 06:25; Admin Dose 10 MG; Start 07/01/16 at 14:00 Dextrose 1,000 ml @ 75 mls/hr [id number] IV Last administered on 07/05/16 01:30; Admin Dose 75 MLS/HR; Start 07/02/16 at 09:30 Bumetanide 25 mg/ Dextrose 250 ml @ 10 mls/hr Q24H IV Last administered on 07/04 14:12; Admin Dose 10 MLS/HR; Start 07/03/16 at 15:00 Ferric Sodium Gluconate Complex 125 mg/Sodium Chloride 110 ml @ 100 mls/hr Q24H IVPB Last administered on 1/4/17at 17:23; Admin Dose 100 MLS/HR; Start 07/04/16 at 16:00; Stop 07/06/16 at 17:05 Vancomycin HCl/ Sodium Chloride (Vancocin/NS) 500 ml @ 125 mls/hr Q24H IVPB ; Start 07/05/16 at 22:00 DARIUSZ GARZA Jul 05, 2016 13:34
[2016-07-05] MEDS: BUMETANIDE 25 MG in DEXTROSE 5% 150 ML IV SCH (13:49)
--- NOTE | 2016-07-05 17:19 | PN ---
DATE: 07/05/2016 SUBJECTIVE: No acute events overnight. Patient is on CPAP, arousable, looks comfortable. He has m ultiple family members at bedside. VITAL SIGNS: T-max 99.8 today, WBC 12.1 with H and H 11.8 and 38.6, platelets 167, neutrophils 82.7 . No bands. BUN 42, creatinine 1.14. INDWELLINGS: Endotracheal tube, NG tube, Merino catheter, left upper extremity PICC line placed on D . PHYSICAL EXAMINATION: GENERAL: This is an ill-appearing, middle-aged white man who is lying comfortably in bed. HEENT: Head atraumatic, normocephalic. Sclerae anicteric. Buccal mucosa dry. NECK: Supple. CHEST: Rise symmetrical. Breath sounds diminished to bases. HEART: S1, S2. ABDOMEN: Soft, bowel tones present. EXTREMITIES: Bilateral edema. ASSESSMENT: 1. Acute respiratory failure secondary to congestive heart failure exacerbation and possible pneumo dennis. 2. Acute renal failure, improving renal function. 3. Bacterial endocarditis with persistent aortic and mitral valve vegetations. 4. History of alpha hemolytic strep septicemia in March 2016, completed 6 weeks' treatment. 5. History of pulmonary emboli. 6. History of IV drug abuse. PLAN: The patient remains hemodynamically stable. Cultures had been negative. He is on appropriat e treatment. We are going to discontinue vancomycin, keep him on cefepime for now and continue wean ing trials as per pulmonary team. Dictated By: RAYMOND HER [employer] SALES REPRESENTATIVE for JULIO CESAR DURON/NTS Conf#: [id number] DID#: [id number]
[2016-07-05 18:21] LABS: POTASSIUM 3.2 mmol/L (3.5-5.1)
[2016-07-05 18:23] LABS: CREATININE 1.08 mg/dl (0.61-1.24)
[2016-07-05 18:24] LABS: CALCIUM 7.5 mg/dl (8.4-10.2)
--- NOTE | 2016-07-05 18:39 | CONS ---
Date/Time of Note Date/Time of Note DATE: 07/05/16 TIME: 18:33 Assessment/Plan Assessment/Plan Chief Complaint/Hosp Course 1. acute renal failure superimposed on CKD . His renal function has improved . He is having a good diuresis with Bumex drip ; however , BP is low. I will D/ C Bumex drip . 2. 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 CT surgery says that he is not a surgical candidate at this time . This has been discussed with the patients mother . 3. CHF 4. hepatitis C with elevated liver enzymes 5. respiratory failure , ventilator dependent , weening from ventilator is being attempted . 6. hypokalemia , potassium is being corrected 7. hypernatremia is correcting . I will stop IV D5W Problems: Consultation Date/Type/Reason Admit Date/Time Jun 26, 2016 at 11:39 Type of Consultation: renal Referring Provider: JC BROUSSARD MD 24 HR Interval Summary Free Text/Dictation he is in the ICU , sedated , intubated on a ventilator Subjective hx not possible: pt non-verbal Exam/Review of Systems Vital Signs Vitals Vital Signs Date Time Temp Pulse Resp B/P Pulse Ox O2 Delivery O2 Flow Rate FiO2 07/05/16 17:40 98 16 100 30 07/05/16 16:30 92/49 Mechanical Ventilator 07/05/16 12:00 98.9 Intake and Output 07/04/16 07/04/16 07/05/16 15:00 23:00 07:00 Intake Total 430 ml 1534 ml 1564.9 ml Output Total 810 ml 700 ml 760 ml Balance -380 ml 834 ml 804.9 ml Exam Constitutional: non-verbal Respiratory: clear to auscultation Cardiovascular: murmurs/extra sounds, regular rate and rhythm Extremities: edema Results Result Diagram: 07/05/16 0900 07/05/16 0900 Results 24 hrs Laboratory Tests Test 07/04/16 19:25 07/04/16 21:50 07/05/16 02:30 07/05/16 09:00 Anion Gap 12 13 12 Blood Urea Nitrogen 39 H 40 H 42 H Calcium Level 7.8 L 7.7 L 7.8 L Carbon Dioxide Level 36 H 33 H 35 H Chloride Level 101 104 102 Creatinine 1.01 1.07 1.14 Glucose Level 140 110 148 Potassium Level 3.2 L 3.7 3.8 Sodium Level 146 H 146 H 145 H Vancomycin Level Trough 11.9 Basophils # 0.1 0.0 Basophils % 0.4 0.2 Blood Morphology Comment Eosinophils # 0.2 0.1 Eosinophils % 1.3 1.2 Hematocrit 38.8 L 38.6 L Hemoglobin 11.9 L 11.8 L Lymphocytes # 1.6 1.3 Lymphocytes % 12.2 L 10.4 L Mean Corpuscular Hemoglobin 23.0 L 23.0 L Mean Corpuscular Hemoglobin Concent 30.7 L 30.5 L Mean Corpuscular Volume 75.1 L 75.2 L Mean Platelet Volume 9.9 10.4 Monocytes # 0.9 0.7 Monocytes % 6.5 5.5 Neutrophils # 10.5 H 10.0 H Neutrophils % 79.6 H 82.7 H Nucleated Red Blood Cells # 0.0 0.0 Nucleated Red Blood Cells % 0.0 0.0 Platelet Count 153 167 Red Blood Count 5.16 5.13 Red Cell Distribution Width 19.9 H 19.7 H White Blood Count 13.2 H 12.1 H Medications Medications Current Medications Ondansetron HCl (Zofran Inj) 4 mg Q6H PRN IV NAUSEA AND/OR VOMITING; Start at 12:00 Nitroglycerin (Nitroglycerin (Sl Tab) 0.4 Mg) 1 tab Q5M PRN SL CHEST PAIN; Start 06/26/16 at 12:00 Acetaminophen (Tylenol Supp) 650 mg Q4H PRN [place] PAIN LEVEL 1-3 OR FEVER Last administered on 07/01/16 19:57; Admin Dose 650 MG; Start 06/26/16 at 12:00 Morphine Sulfate (morphine) 2 mg Q4H PRN IV PAIN LEVEL 7-10; Start 06/26/16 at 12:00 Lorazepam (Ativan) 1 mg Q2H PRN IV ANXIETY Last administered on 07/04/16 19:31 ; Admin Dose 1 MG; Start 06/26/16 at 12:00 Heparin Sodium (Porcine) 5000 unit 5,000 unit BID SC Last administered on 08:39; Admin Dose 5,000 UNIT; Start 06/26/16 at 21:00 Cefepime HCl (Maxipime 1gm/50 ml (Pmx)) 50 ml @ 100 mls/hr Q12 IVPB Last administered on 07/05/16 08:38; Admin Dose 100 MLS/HR; Start 06/26/16 at 15:00 IV Flush 10 ml 10 ml PRN PRN IV IV PROTOCOL; Start 06/27/16 at 16:30 Pantoprazole/ Sodium Chloride (Protonix Iv/NS) 100 ml @ 10 mls/hr Q10H IV Last administered on 07/05/16 05:02; Admin Dose 10 MLS/HR; Start 06/28/16 at 09 :30 Metoprolol Tartrate 25 mg 25 mg BID PO Last administered on 07/04/16 08:36; Admin Dose 25 MG; Start 06/28/16 at 21:00 Fentanyl/Dextrose (D5W) 100 ml @ 0 mls/hr TITRATE IV Last administered on 19:31; Admin Dose 5 MLS/HR; Start 06/29/16 at 15:30 Nystatin (Nystatin Susp) 5 ml TID PO Last administered on 07/05/16 13:49; Admin Dose 5 ML; Start 06/30/16 at 21:00 Hydralazine HCl 10 mg 10 mg Q8 PO Last administered on 07/05/16 06:25; Admin Dose 10 MG; Start 07/01/16 at 14:00 Dextrose 1,000 ml @ 75 mls/hr [id number] IV Last administered on 07/05/16 16:42; Admin Dose 75 MLS/HR; Start 07/02/16 at 09:30 Ferric Sodium Gluconate Complex 125 mg/Sodium Chloride 110 ml @ 100 mls/hr Q24H IVPB Last administered on 07/04/16 17:23; Admin Dose 100 MLS/HR; Start 07/04/16 at 16:00; Stop 07/06/16 at 17:05 Vancomycin HCl/ Sodium Chloride (Vancocin/NS) 500 ml @ 125 mls/hr Q24H IVPB ; Start 07/05/16 at 22:00 CRESENCIO CASTILLO MD Jul 05, 2016 18:39
[2016-07-05] MEDS ORDERED: VANCOMYCIN 1.75 GM in NS 500 ML IVPB SCH (22:00)
[2016-07-05 23:21] LABS: POTASSIUM 4.3 mmol/L (3.5-5.1)
[2016-07-05 23:23] LABS: CREATININE 1.07 mg/dl (0.61-1.24)
[2016-07-05 23:24] LABS: CALCIUM 7.5 mg/dl (8.4-10.2)
[2016-07-05] MEDS: FENTAnyl 1,000 MCG in DEXTROSE 5% 80 ML IV SCH (23:51)
[2016-07-06] VITALS (89 sets, daily range): BP systolic 87–153; BP diastolic 48–76; PULSE 93–142; RESP 15–44
[2016-07-06 05:13] LABS: POTASSIUM 3.7 mmol/L (3.5-5.1)
[2016-07-06 05:15] LABS: CREATININE 1.09 mg/dl (0.61-1.24)
[2016-07-06 05:16] LABS: CALCIUM 7.1 mg/dl (8.4-10.2)
[2016-07-06] MEDS: POTASSIUM CHLORIDE 20 MEQ POWDER FOR ORAL SOLN GTB SCH ×2 (06:27→18:32)
[2016-07-06] MEDS: METOPROLOL 25 MG TAB PO SCH ×2 (09:00→20:55)
[2016-07-06] MEDS: NYSTATIN SUSP 5 ML CUP PO SCH ×3 (09:00→20:55)
[2016-07-06] MEDS: HEPARIN 5,000 UNIT/0.5 ML SYG SC SCH ×2 (09:01→21:00)
[2016-07-06] MEDS: PANTOPRAZOLE IV 80 MG in SOD CHLORIDE 0.9% 100 ML IV SCH (09:09)
[2016-07-06] MEDS: CEFEPIME 1GM/50 ML (PMX) 50 ML IVPB SCH ×2 (09:09→20:55)
--- NOTE | 2016-07-06 10:03 | CONS ---
Date/Time of Note Date/Time of Note DATE: 07/06/16 TIME: 09:58 Assessment/Plan Assessment/Plan Chief Complaint/Hosp Course IMPRESSION: 1. Congestive heart failure exacerbation, systolic, acute on chronic with last known EF approximately 40% by echo May 2016. 2. Aortic regurgitation, moderate to severe with possible ongoing vegetation by most recent echo May 2016. 3. Mitral regurgitation, moderate to severe. 4. History of recent endocarditis status post 6-week course of antibiotics. 5. Cardiomyopathy with decreased left ventricular ejection fraction last approximately 40% by echo 06/14/2016. 6. Coagulopathy. 7. Renal failure-slowly improving 8. Hypokalemia 9. Increased LFTs. 10. Increased BNP. 11. Leukocytosis. 12. Mild anemia. 13.Resp failure s/p intubation 14. s/p Code blue 15.DNR Recc: -Tele -Bumex drip held in setting of marginal BP -Low dose BB/hydralazine as tolerated only -Per CT surgery not a candidate for valve replacement at this time due to high risk -F/U blood cultures -Continue abx's -Family deciding about direction of care currently with ongoing discussion Problems: Consultation Date/Type/Reason Admit Date/Time Jun 26, 2016 at 11:39 Initial Consult Date 06/27/2016 Type of Consultation: Cardiology Reason for Consultation CHF/MR/AR Referring Provider: JC BROUSSARD MD Exam/Review of Systems Vital Signs Vitals Vital Signs Date Time Temp Pulse Resp B/P Pulse Ox O2 Delivery O2 Flow Rate FiO2 07/06/16 08:00 113 07/06/16 08:00 16 105/58 100 Mechanical Ventilator 07/06/16 05:25 30 07/06/16 04:00 99.0 Intake and Output 07/05/16 07/05/16 07/06/16 15:00 23:00 07:00 Intake Total 440 ml 1595 ml 910 ml Output Total 745 ml 1430 ml 390 ml Balance -305 ml 165 ml 520 ml Exam Review of Systems: CONSTITUTIONAL: No fevers, chills. PULMONARY: intubated CARDIOVASCULAR: No obvious chest pain/palpitations GASTROINTESTINAL: No nausea/vomiting. GENITOURINARY: No hematuria/dysuria. MUSCULOSKELETAL: No obvious myagias/arthalgias. PSYCHIATRIC: No docuemented depression. NEUROLOGIC: encephalopathy/sedated Constitutional: other (sedated) Head: normocephalic ENMT: mucosa pink and moist Neck: jvd (9 cm water), supple Respiratory: other (upper airway rhocherous sounds) Cardiovascular: regular rate and rhythm Gastrointestinal: non-tender, soft Musculoskeletal: muscle tone (normal) Extremities: pitting pedal edema (Bilateral) Neurological: other (sedated/encephalopathic) Results Result Diagram: 07/05/16 0900 07/06/16 0430 Results 24 hrs Laboratory Tests Test 07/05/16 17:45 07/05/16 23:03 07/06/16 04:30 07/06/16 09:26 Anion Gap 13 11 13 Blood Urea Nitrogen 43 H 44 H 45 H Calcium Level 7.5 L 7.5 L 7.1 L Carbon Dioxide Level 36 H 35 H 32 H Chloride Level 102 103 108 Creatinine 1.08 1.07 1.09 Glucose Level 110 109 106 Potassium Level 3.2 L 4.3 3.7 Sodium Level 148 H 145 H 149 H Stool Occult Blood NEGATIVE Lab Scanned Report REFERENCE LAB Medications Medications Current Medications Ondansetron HCl (Zofran Inj) 4 mg Q6H PRN IV NAUSEA AND/OR VOMITING; Start at 12:00 Nitroglycerin (Nitroglycerin (Sl Tab) 0.4 Mg) 1 tab Q5M PRN SL CHEST PAIN; Start 06/26/16 at 12:00 Acetaminophen (Tylenol Supp) 650 mg Q4H PRN [place] PAIN LEVEL 1-3 OR FEVER Last administered on 07/01/16 19:57; Admin Dose 650 MG; Start 06/26/16 at 12:00 Morphine Sulfate (morphine) 2 mg Q4H PRN IV PAIN LEVEL 7-10; Start 06/26/16 at 12:00 Lorazepam (Ativan) 1 mg Q2H PRN IV ANXIETY Last administered on 07/04/16 19:31 ; Admin Dose 1 MG; Start 06/26/16 at 12:00 Heparin Sodium (Porcine) 5000 unit 5,000 unit BID SC Last administered on 09:01; Admin Dose 5,000 UNIT; Start 06/26/16 at 21:00 Cefepime HCl (Maxipime 1gm/50 ml (Pmx)) 50 ml @ 100 mls/hr Q12 IVPB Last administered on 07/06/16 09:09; Admin Dose 100 MLS/HR; Start 06/26/16 at 15:00 IV Flush 10 ml 10 ml PRN PRN IV IV PROTOCOL; Start 06/27/16 at 16:30 Pantoprazole/ Sodium Chloride (Protonix Iv/NS) 100 ml @ 10 mls/hr Q10H IV Last administered on 07/06/16 09:09; Admin Dose 10 MLS/HR; Start 06/28/16 at 09 :30 Metoprolol Tartrate 25 mg 25 mg BID PO Last administered on 07/04/16 08:36; Admin Dose 25 MG; Start 06/28/16 at 21:00 Fentanyl/Dextrose (D5W) 100 ml @ 0 mls/hr TITRATE IV Last administered on 23:51; Admin Dose 5 MLS/HR; Start 06/29/16 at 15:30 Nystatin (Nystatin Susp) 5 ml TID PO Last administered on 07/06/16 09:00; Admin Dose 5 ML; Start 06/30/16 at 21:00 Hydralazine HCl 10 mg 10 mg Q8 PO Last administered on 07/05/16 06:25; Admin Dose 10 MG; Start 07/01/16 at 14:00 Ferric Sodium Gluconate Complex 125 mg/Sodium Chloride 110 ml @ 100 mls/hr Q24H IVPB Last administered on 07/04/16 17:23; Admin Dose 100 MLS/HR; Start 07/04/16 at 16:00; Stop 07/06/16 at 17:05 Vancomycin HCl/ Sodium Chloride (Vancocin/NS) 500 ml @ 125 mls/hr Q24H IVPB Last administered on 07/05/16 22:08; Admin Dose 125 MLS/HR; Start 07/05/16 at 22: 00 SEVERO STUBBS Jul 06, 2016 10:03
--- NOTE | 2016-07-06 10:49 | CONS ---
Date/Time of Note Date/Time of Note DATE: 07/06/16 TIME: 10:47 Consult Date/Type/Reason Admit Date/Time Jun 26, 2016 at 11:39 Type of Consultation: pulmonary Ordering Provider: JC BROUSSARD MD Subjective Patient remains intubated sedated on mechanical ventilation moderate secretions Objective Vital Signs Date Time Temp Pulse Resp B/P Pulse Ox O2 Delivery O2 Flow Rate FiO2 07/06/16 08:00 113 07/06/16 08:00 16 105/58 100 Mechanical Ventilator 07/06/16 05:25 30 07/06/16 04:00 99.0 Intake and Output 07/05/16 07/05/16 07/06/16 14:59 22:59 06:59 Intake Total 395 ml 1460 ml 1090 ml Output Total 545 ml 1580 ml 440 ml Balance -150 ml -120 ml 650 ml PHYSICAL EXAMINATION: GENERAL: A chronically ill-appearing gentleman, intubated on mechanical ventilation, comfortable at rest, no acute distress. VITAL SIGNS: As above NECK: Supple. No JVD or lymphadenopathy. CARDIAC: S1, S2, no added sounds or murmurs. CHEST: Diminished air entry bilaterally. ABDOMEN: Soft, nontender. No guarding or rebound. EXTREMITIES: No cyanosis, clubbing, edema. NEUROLOGIC: Unable to assess. Results/Medications Result Diagram: 07/05/16 0900 07/06/16 0430 Results 24 hrs Laboratory Tests Test 07/05/16 17:45 07/05/16 23:03 07/06/16 04:30 07/06/16 09:26 Anion Gap 13 11 13 Blood Urea Nitrogen 43 H 44 H 45 H Calcium Level 7.5 L 7.5 L 7.1 L Carbon Dioxide Level 36 H 35 H 32 H Chloride Level 102 103 108 Creatinine 1.08 1.07 1.09 Glucose Level 110 109 106 Potassium Level 3.2 L 4.3 3.7 Sodium Level 148 H 145 H 149 H Stool Occult Blood NEGATIVE Lab Scanned Report REFERENCE LAB Medications Current Medications Ondansetron HCl (Zofran Inj) 4 mg Q6H PRN IV NAUSEA AND/OR VOMITING; Start at 12:00 Nitroglycerin (Nitroglycerin (Sl Tab) 0.4 Mg) 1 tab Q5M PRN SL CHEST PAIN; Start 06/26/16 at 12:00 Acetaminophen (Tylenol Supp) 650 mg Q4H PRN [place] PAIN LEVEL 1-3 OR FEVER Last administered on 07/01/16 19:57; Admin Dose 650 MG; Start 06/26/16 at 12:00 Morphine Sulfate (morphine) 2 mg Q4H PRN IV PAIN LEVEL 7-10; Start 06/26/16 at 12:00 Lorazepam (Ativan) 1 mg Q2H PRN IV ANXIETY Last administered on 07/04/16 19:31 ; Admin Dose 1 MG; Start 06/26/16 at 12:00 Heparin Sodium (Porcine) 5000 unit 5,000 unit BID SC Last administered on 09:01; Admin Dose 5,000 UNIT; Start 06/26/16 at 21:00 Cefepime HCl (Maxipime 1gm/50 ml (Pmx)) 50 ml @ 100 mls/hr Q12 IVPB Last administered on 07/06/16 09:09; Admin Dose 100 MLS/HR; Start 06/26/16 at 15:00 IV Flush 10 ml 10 ml PRN PRN IV IV PROTOCOL; Start 06/27/16 at 16:30 Pantoprazole/ Sodium Chloride (Protonix Iv/NS) 100 ml @ 10 mls/hr Q10H IV Last administered on 07/06/16 09:09; Admin Dose 10 MLS/HR; Start 06/28/16 at 09 :30 Metoprolol Tartrate 25 mg 25 mg BID PO Last administered on 07/04/16 08:36; Admin Dose 25 MG; Start 06/28/16 at 21:00 Fentanyl/Dextrose (D5W) 100 ml @ 0 mls/hr TITRATE IV Last administered on 23:51; Admin Dose 5 MLS/HR; Start 06/29/16 at 15:30 Nystatin (Nystatin Susp) 5 ml TID PO Last administered on 07/06/16 09:00; Admin Dose 5 ML; Start 06/30/16 at 21:00 Hydralazine HCl 10 mg 10 mg Q8 PO Last administered on 07/05/16 06:25; Admin Dose 10 MG; Start 07/01/16 at 14:00 Ferric Sodium Gluconate Complex 125 mg/Sodium Chloride 110 ml @ 100 mls/hr Q24H IVPB Last administered on 07/04/16 17:23; Admin Dose 100 MLS/HR; Start 07/04/16 at 16:00; Stop 07/06/16 at 17:05 Vancomycin HCl/ Sodium Chloride (Vancocin/NS) 500 ml @ 125 mls/hr Q24H IVPB Last administered on 07/05/16 22:08; Admin Dose 125 MLS/HR; Start 07/05/16 at 22: 00 Assessment/Plan Chief Complaint/Hosp Course IMPRESSION AND PLAN: 1. Hypoxemic respiratory failure. Secondary to congestive cardiac failure 2. Likely ventilator associated pneumonia 3. Bacterial endocarditis with valvular heart disease. 4. History of prolonged and recent intravenous drug abuse. 5. History of pulmonary embolus. 6. Renal insufficiency The patient will require: 1. Continued mechanical ventilation. Repeat cpap this morning 2. Diuresis if tolerated. 3. Broad-spectrum antibiotics. 4. DVT and GI prophylaxis. 5. d/w cardiology, agree with transfer to tertiary care center Disposition Continue mechanical ventilation weekend if patient is not able to come off ventilator, we will proceed to tracheostomy Problems: ASAD DAS MD, [facility] Jul 06, 2016 10:49
--- NOTE | 2016-07-06 11:35 | CONS ---
Date/Time of Note Date/Time of Note DATE: 07/06/16 TIME: 11:32 Consult Date/Type/Reason Admit Date/Time Jun 26, 2016 at 11:39 Initial Consult Date Type of Consultation: ID Ordering Provider: JC BROUSSARD MD Subjective no acute events, off Bumex gtt, on Cpap, awake, looks comfortable, no fevers, + copious secretions Objective Vital Signs Date Time Temp Pulse Resp B/P Pulse Ox O2 Delivery O2 Flow Rate FiO2 07/06/16 08:00 113 07/06/16 08:00 16 105/58 100 Mechanical Ventilator 07/06/16 05:25 30 07/06/16 04:00 99.0 Intake and Output 07/05/16 07/05/16 07/06/16 15:00 23:00 07:00 Intake Total 440 ml 1595 ml 910 ml Output Total 745 ml 1430 ml 390 ml Balance -305 ml 165 ml 520 ml Results/Medications Result Diagram: 07/05/16 0900 07/06/16 0430 Results 24 hrs Laboratory Tests Test 07/05/16 17:45 07/05/16 23:03 07/06/16 04:30 07/06/16 09:26 Anion Gap 13 11 13 Blood Urea Nitrogen 43 H 44 H 45 H Calcium Level 7.5 L 7.5 L 7.1 L Carbon Dioxide Level 36 H 35 H 32 H Chloride Level 102 103 108 Creatinine 1.08 1.07 1.09 Glucose Level 110 109 106 Potassium Level 3.2 L 4.3 3.7 Sodium Level 148 H 145 H 149 H Stool Occult Blood NEGATIVE Lab Scanned Report REFERENCE LAB Medications Current Medications Ondansetron HCl (Zofran Inj) 4 mg Q6H PRN IV NAUSEA AND/OR VOMITING; Start at 12:00 Nitroglycerin (Nitroglycerin (Sl Tab) 0.4 Mg) 1 tab Q5M PRN SL CHEST PAIN; Start 06/26/16 at 12:00 Acetaminophen (Tylenol Supp) 650 mg Q4H PRN [place] PAIN LEVEL 1-3 OR FEVER Last administered on 07/01/16t 19:57; Admin Dose 650 MG; Start 06/26/16 at 12:00 Morphine Sulfate (morphine) 2 mg Q4H PRN IV PAIN LEVEL 7-10; Start 06/26/16 at 12:00 Lorazepam (Ativan) 1 mg Q2H PRN IV ANXIETY Last administered on 07/04/16 19:31 ; Admin Dose 1 MG; Start 06/26/16 at 12:00 Heparin Sodium (Porcine) 5000 unit 5,000 unit BID SC Last administered on 09:01; Admin Dose 5,000 UNIT; Start 06/26/16 at 21:00 Cefepime HCl (Maxipime 1gm/50 ml (Pmx)) 50 ml @ 100 mls/hr Q12 IVPB Last administered on 07/06/16 09:09; Admin Dose 100 MLS/HR; Start 06/26/16 at 15:00 IV Flush 10 ml 10 ml PRN PRN IV IV PROTOCOL; Start 06/27/16 at 16:30 Pantoprazole/ Sodium Chloride (Protonix Iv/NS) 100 ml @ 10 mls/hr Q10H IV Last administered on 07/06/16 09:09; Admin Dose 10 MLS/HR; Start 06/28/16 at 09 :30 Metoprolol Tartrate 25 mg 25 mg BID PO Last administered on 07/04/16 08:36; Admin Dose 25 MG; Start 06/28/16 at 21:00 Fentanyl/Dextrose (D5W) 100 ml @ 0 mls/hr TITRATE IV Last administered on 23:51; Admin Dose 5 MLS/HR; Start 06/29/16 at 15:30 Nystatin (Nystatin Susp) 5 ml TID PO Last administered on 07/06/16 09:00; Admin Dose 5 ML; Start 06/30/16 at 21:00 Hydralazine HCl 10 mg 10 mg Q8 PO Last administered on 07/05/16 06:25; Admin Dose 10 MG; Start 07/01/16 at 14:00 Ferric Sodium Gluconate Complex 125 mg/Sodium Chloride 110 ml @ 100 mls/hr Q24H IVPB Last administered on 07/04/16 17:23; Admin Dose 100 MLS/HR; Start 07/04/16 at 16:00; Stop 07/06/16 at 17:05 Vancomycin HCl/ Sodium Chloride (Vancocin/NS) 500 ml @ 125 mls/hr Q24H IVPB Last administered on 07/05/16 22:08; Admin Dose 125 MLS/HR; Start 07/05/16 at 22: 00 Assessment/Plan Chief Complaint/Hosp Course INDWELLINGS: Endotracheal tube, NG tube, Merino catheter, left upper extremity PICC line placed on June 27. PHYSICAL EXAMINATION: GENERAL: This is an ill-appearing, middle-aged white man who is lying comfortably in bed. HEENT: Head atraumatic, normocephalic. Sclerae anicteric. Buccal mucosa dry. NECK: Supple. CHEST: Rise symmetrical. Breath sounds diminished to bases. HEART: S1, S2. ABDOMEN: Soft, bowel tones present. EXTREMITIES: Bilateral edema. ASSESSMENT: 1. Acute respiratory failure secondary to congestive heart failure exacerbation and possible pneumonia. 2. Acute renal failure, improving renal function. 3. Bacterial endocarditis with persistent aortic and mitral valve vegetations. 4. History of alpha hemolytic strep septicemia in March 2016, completed 6 weeks' treatment. 5. History of pulmonary emboli. 6. History of IV drug abuse. PLAN: The patient remains hemodynamically stable. Cultures had been negative. He is on appropriate treatment. Continue weaning trials as per pulmonary team. [facility] staff Problems: RAYMOND HER NP Jul 06, 2016 11:35
[2016-07-06] MEDS: POTASSIUM CHLORIDE 50 ML IVPB PRN (14:32)
--- NOTE | 2016-07-06 15:24 | CONS ---
Date/Time of Note Date/Time of Note DATE: 07/06/16 TIME: 15:19 Assessment/Plan Assessment/Plan Chief Complaint/Hosp Course 1. acute renal failure superimposed on CKD . His renal function has improved . He has had good diuresis with Bumex ; however ,his BP has been at times low . I will restart Bumex at lower dose . 2. 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 CT surgery says that he is not a surgical candidate at this time . 3. CHF 4. hepatitis C with elevated liver enzymes 5. respiratory failure , ventilator dependent , weening from ventilator is being attempted . 6. hypokalemia , potassium is being corrected 7. hypernatremia , increase water flushes in G tube . Problems: Consultation Date/Type/Reason Admit Date/Time Jun 26, 2016 at 11:39 Type of Consultation: ID Referring Provider: JC BROUSSARD MD 24 HR Interval Summary Free Text/Dictation he is in the ICU , sedated , on ventilator . Subjective hx not possible: pt non-verbal Exam/Review of Systems Vital Signs Vitals Vital Signs Date Time Temp Pulse Resp B/P Pulse Ox O2 Delivery O2 Flow Rate FiO2 07/06/16 14:00 111 18 106/60 07/06/16 13:45 100 07/06/16 12:15 Mechanical Ventilator 07/06/16 12:00 98.7 07/06/16 11:40 30 Intake and Output 07/05/16 07/05/16 07/06/16 15:00 23:00 07:00 Intake Total 440 ml 1595 ml 910 ml Output Total 745 ml 1430 ml 390 ml Balance -305 ml 165 ml 520 ml Exam Constitutional: non-verbal Respiratory: clear to auscultation, diminished breath sounds Cardiovascular: murmurs/extra sounds, regular rate and rhythm Gastrointestinal: soft Extremities: edema Results Result Diagram: 07/05/16 0900 07/06/16 0430 Results 24 hrs Laboratory Tests Test 07/05/16 17:45 07/05/16 23:03 07/06/16 04:30 07/06/16 09:26 Anion Gap 13 11 13 Blood Urea Nitrogen 43 H 44 H 45 H Calcium Level 7.5 L 7.5 L 7.1 L Carbon Dioxide Level 36 H 35 H 32 H Chloride Level 102 103 108 Creatinine 1.08 1.07 1.09 Glucose Level 110 109 106 Potassium Level 3.2 L 4.3 3.7 Sodium Level 148 H 145 H 149 H Stool Occult Blood NEGATIVE Lab Scanned Report REFERENCE LAB Medications Medications Current Medications Ondansetron HCl (Zofran Inj) 4 mg Q6H PRN IV NAUSEA AND/OR VOMITING; Start at 12:00 Nitroglycerin (Nitroglycerin (Sl Tab) 0.4 Mg) 1 tab Q5M PRN SL CHEST PAIN; Start 06/26/16 at 12:00 Acetaminophen (Tylenol Supp) 650 mg Q4H PRN [place] PAIN LEVEL 1-3 OR FEVER Last administered on 07/01/16 19:57; Admin Dose 650 MG; Start 06/26/16 at 12:00 Morphine Sulfate (morphine) 2 mg Q4H PRN IV PAIN LEVEL 7-10; Start 06/26/16 at 12:00 Lorazepam (Ativan) 1 mg Q2H PRN IV ANXIETY Last administered on 07/04/16 19:31 ; Admin Dose 1 MG; Start 06/26/16 at 12:00 Heparin Sodium (Porcine) 5000 unit 5,000 unit BID SC Last administered on 09:01; Admin Dose 5,000 UNIT; Start 06/26/16 at 21:00 Cefepime HCl (Maxipime 1gm/50 ml (Pmx)) 50 ml @ 100 mls/hr Q12 IVPB Last administered on 07/06/16 09:09; Admin Dose 100 MLS/HR; Start 06/26/16 at 15:00 IV Flush 10 ml 10 ml PRN PRN IV IV PROTOCOL; Start 06/27/16 at 16:30 Pantoprazole/ Sodium Chloride (Protonix Iv/NS) 100 ml @ 10 mls/hr Q10H IV Last administered on 07/06/16 09:09; Admin Dose 10 MLS/HR; Start 06/28/16 at 09 :30 Metoprolol Tartrate 25 mg 25 mg BID PO Last administered on 07/04/16 08:36; Admin Dose 25 MG; Start 06/28/16 at 21:00 Fentanyl/Dextrose (D5W) 100 ml @ 0 mls/hr TITRATE IV Last administered on 23:51; Admin Dose 5 MLS/HR; Start 06/29/16 at 15:30 Nystatin (Nystatin Susp) 5 ml TID PO Last administered on 07/06/16 13:00; Admin Dose 5 ML; Start 06/30/16 at 21:00 Hydralazine HCl 10 mg 10 mg Q8 PO Last administered on 07/05/16 06:25; Admin Dose 10 MG; Start 07/01/16 at 14:00 Ferric Sodium Gluconate Complex/ Sodium Chloride (Ferrlecit/NS) 110 ml @ 100 mls/hr Q24H IVPB Last administered on 07/04/16 17:23; Admin Dose 100 MLS/HR; Start 07/04/16 at 16:00; Stop 07/06/16 at 17:05 CRESENCIO CASTILLO MD Jul 06, 2016 15:24
--- NOTE | 2016-07-06 15:25 | PN ---
Date/Time of Note Date/Time of Note DATE: 07/06/16 TIME: 15:20 Assessment/Plan VTE Prophylaxis VTE Prophylaxis Intervention: heparin Lines/Catheters IV Catheter Type (from Nrs): PICC Line Central line still needed: Yes Urinary Cath still in place: Yes Reason Cath still needed: urinary retention Assessment/Plan Chief Complaint/Hosp Course Assessment/Plan: 36 yo unfortunate male with a past medical history of Bacterial Endocarditis finished 6 week course of IV antibiotics, Drug abuse, Nicotine abuse, Right popliteal thrombosis, PE (on Eliquis prior to admission), Microcytic anemia, CHF - diastolic, who came for worsening shortness of breath. 1. Shortness of breath - hypoxemic respiratory failure - multifactorial - heart failure acute on chronic - Vent dependent - intubated - f/u pulm recs, CV as well - for CPAP trial tomorrow - as well, possible trach placement has been discussed as well with family and pulm team - f/u on this. 2. Sepsis - severe 2/2 to pneumonia (HCAP) + endocarditis - tachycardia/ leukocytosis - WBC still slightly elevated - per ID, continue IV cefepime (vanco d/c'ed) - f/u respiratory cultures, - appreciate ID recs 3. CHF - diastolic dysfunction acute on chronic - EF recent shows 40%, D shaped left ventricle - f/u CV rec's - f/u renal rec's, monitor UO 4. Hypernatremia - appreciate nephrology consult - improving, but still slightly elevated (149) - f/u renal rec's, per discussion with them, will increase free H2O today as well. 5. BESSIE - acute on chronic - 2/2 #2 - improving - monitor, f/u renal rec's. per discussion with them, will restart bumex BID now, monitor UO and swelling. 6. Transaminitis - 2/2 to sepsis, or possible atypical pneumonia, monitor trend - improving 7. PE - heparin 8. Right popliteal thrombus - pt presently on heparin sub Q at this time 9. Microcytic anemia - monitor H/H, transfuse if hgb < 8 g/dL. Given low Fe levels, start ferricilit today 10. GI ppx - protonix drip for now, f/u GI rec's 11. DVT ppx - heparin dispo - f/u recs, appreciate palliative care consult - will monitor functional status - overall prognosis is poor - DNR/DNI - family agrees to continue current care, considering trach placement as well - plan would be assisted abx tx and possible valve replacement surgery in future if more medically stable then critical care time today = 45 min Problems: Subjective 24 Hr Interval Summary Free Text/Dictation Pt still intubated. Mom at bedside, was off bumex drip since yesterday. Exam/Review of Systems Vital Signs Vitals Vital Signs Date Time Temp Pulse Resp B/P Pulse Ox O2 Delivery O2 Flow Rate FiO2 07/06/16 14:00 111 18 106/60 07/06/16 13:45 100 07/06/16 12:15 Mechanical Ventilator 07/06/16 12:00 98.7 07/06/16 11:40 30 Intake and Output 07/05/16 07/05/16 07/06/16 15:00 23:00 07:00 Intake Total 440 ml 1595 ml 910 ml Output Total 745 ml 1430 ml 390 ml Balance -305 ml 165 ml 520 ml Exam Gen Evelyn: intubated, opens eyes HEENT: NC/AT, ETT in place NECK: supple, no thyromegaly THORAX: symmetrical, no obvious deformities CV: S1S2, RRR, III/ holosystolic murmur best heard over mitral area - blowing type Lungs: Coarse breath sounds, scattered wheezing, bibasilar crackles Abd: soft, NT/ND, +BS, no rebound, no guarding, neg HSM : scrotal edema, with some skin sloughing noted EXT: 2 + bilateral upper/lower extremities edema, no ecchymosis, no clubbing, FROM, mild cyanosis noted at phalanges bilaterally lower extremities Neuro: intubated Psych: agitated at times Results Result Diagram: 07/05/16 0900 07/06/16 0430 Results 24 hrs Laboratory Tests Test 07/05/16 17:45 07/05/16 23:03 07/06/16 04:30 07/06/16 09:26 Anion Gap 13 11 13 Blood Urea Nitrogen 43 H 44 H 45 H Calcium Level 7.5 L 7.5 L 7.1 L Carbon Dioxide Level 36 H 35 H 32 H Chloride Level 102 103 108 Creatinine 1.08 1.07 1.09 Glucose Level 110 109 106 Potassium Level 3.2 L 4.3 3.7 Sodium Level 148 H 145 H 149 H Stool Occult Blood NEGATIVE Lab Scanned Report REFERENCE LAB Medications Medications Current Medications Ondansetron HCl (Zofran Inj) 4 mg Q6H PRN IV NAUSEA AND/OR VOMITING; Start at 12:00 Nitroglycerin (Nitroglycerin (Sl Tab) 0.4 Mg) 1 tab Q5M PRN SL CHEST PAIN; Start 06/26/16 at 12:00 Acetaminophen (Tylenol Supp) 650 mg Q4H PRN ME PAIN LEVEL 1-3 OR FEVER Last administered on 07/01/16 19:57; Admin Dose 650 MG; Start 06/26/16 at 12:00 Morphine Sulfate (morphine) 2 mg Q4H PRN IV PAIN LEVEL 7-10; Start 06/26/16 at 12:00 Lorazepam (Ativan) 1 mg Q2H PRN IV ANXIETY Last administered on 07/04/16 19:31 ; Admin Dose 1 MG; Start 06/26/16 at 12:00 Heparin Sodium (Porcine) 5000 unit 5,000 unit BID SC Last administered on 09:01; Admin Dose 5,000 UNIT; Start 06/26/16 at 21:00 Cefepime HCl (Maxipime 1gm/50 ml (Pmx)) 50 ml @ 100 mls/hr Q12 IVPB Last administered on 07/06/16 09:09; Admin Dose 100 MLS/HR; Start 06/26/16 at 15:00 IV Flush 10 ml 10 ml PRN PRN IV IV PROTOCOL; Start 06/27/16 at 16:30 Pantoprazole/ Sodium Chloride (Protonix Iv/NS) 100 ml @ 10 mls/hr Q10H IV Last administered on 07/06/16 09:09; Admin Dose 10 MLS/HR; Start 06/28/16 at 09 :30 Metoprolol Tartrate 25 mg 25 mg BID PO Last administered on 07/04/16 08:36; Admin Dose 25 MG; Start 06/28/16 at 21:00 Fentanyl/Dextrose (D5W) 100 ml @ 0 mls/hr TITRATE IV Last administered on 23:51; Admin Dose 5 MLS/HR; Start 06/29/16 at 15:30 Nystatin (Nystatin Susp) 5 ml TID PO Last administered on 07/06/16 13:00; Admin Dose 5 ML; Start 06/30/16 at 21:00 Hydralazine HCl 10 mg 10 mg Q8 PO Last administered on 07/05/16 06:25; Admin Dose 10 MG; Start 07/01/16 at 14:00 Ferric Sodium Gluconate Complex/ Sodium Chloride (Ferrlecit/NS) 110 ml @ 100 mls/hr Q24H IVPB Last administered on 07/04/16 17:23; Admin Dose 100 MLS/HR; Start 07/04/16 at 16:00; Stop 07/06/16 at 17:05 ROBERTO DAVISON Jul 06, 2016 15:25
--- NOTE | 2016-07-06 16:07 | PN ---
Date/Time of Note Date/Time of Note DATE: 07/06/16 TIME: 16:07 Assessment/Plan Lines/Catheters IV Catheter Type (from Nrs): PICC Line Merino in Place (from Nrs): Yes Assessment/Plan Chief Complaint/Hosp Course IMPRESSION: 1. Endocarditis involving aortic and mitral valve. 2. Aortic regurgitation. 3. Mitral regurgitation. 4. Cardiomyopathy with diminished ejection fraction. 5. Renal failure. 6. History of drug use. 7. Elevation of the transaminases. 8. Coagulopathy. RECOMMENDATIONS: This patient is not a candidate to undergo surgery at the present time; too high risk for surgical repair. Please continue antibiotics. Discussed with the nursing staff. and the mother Family conference tomorrow Problems: Subjective 24 Hr Interval Summary Constitutional: improved Pain Control: mild Exam/Review of Systems Vital Signs Vitals Vital Signs Date Time Temp Pulse Resp B/P Pulse Ox O2 Delivery O2 Flow Rate FiO2 07/06/16 14:00 111 18 106/60 07/06/16 13:45 100 07/06/16 12:15 Mechanical Ventilator 07/06/16 12:00 98.7 07/06/16 11:40 30 Intake and Output 07/05/16 07/05/16 07/06/16 14:59 22:59 06:59 Intake Total 395 ml 1460 ml 1090 ml Output Total 545 ml 1580 ml 440 ml Balance -150 ml -120 ml 650 ml Exam ENMT: mucosa pink and moist, nl external ears & nose, nl lips & teeth, nl nasal mucosa & septum Neck: non-tender, supple Respiratory: clear to auscultation, normal air movement Cardiovascular: nl pulses, regular rate and rhythm Gastrointestinal: nl liver, spleen, non-tender, soft Results Result Diagram: 07/05/16 0900 07/06/16 0430 KARI ZAMAN MD Jul 06, 2016 16:07
[2016-07-06] MEDS: SOD FERRIC GLUC COMPLX 125 MG in SOD CHLORIDE 0.9% 100 ML IVPB SCH (17:00)
[2016-07-06] MEDS: BUMETANIDE 1 MG INJ IV SCH (18:32)
[2016-07-06 18:45] LABS: POTASSIUM 4.3 mmol/L (3.5-5.1)
[2016-07-06 18:47] LABS: CREATININE 1.15 mg/dl (0.61-1.24)
[2016-07-06 18:48] LABS: CALCIUM 7.9 mg/dl (8.4-10.2)
[2016-07-06] MEDS: FENTAnyl 1,000 MCG in DEXTROSE 5% 80 ML IV SCH (21:02)
[2016-07-07] VITALS (65 sets, daily range): BP systolic 91–109; BP diastolic 52–67; PULSE 93–120; RESP 16–21
[2016-07-07] MEDS: POTASSIUM CHLORIDE 20 MEQ POWDER FOR ORAL SOLN GTB SCH ×2 (06:20→18:21)
[2016-07-07] MEDS: PANTOPRAZOLE 40 MG INJ IV SCH ×2 (06:20→18:21)
[2016-07-07] MEDS: BUMETANIDE 1 MG INJ IV SCH ×2 (06:20→18:21)
[2016-07-07 06:28] LABS: BASOPHILS % 0.3 % (0.0-2.0); EOSINOPHILS # 0.1 10^3/ul (0.0-0.5); EOSINOPHILS % 0.7 % (0.0-7.0); HEMATOCRIT 39.7 % (42.0-52.0); HEMOGLOBIN 12.2 g/dl (14.0-18.0); LYMPHOCYTES # 1.3 10^3/ul (0.8-2.9); LYMPHOCYTES % 10.4 % (15.0-51.0); MEAN CORPUSCULAR HEMOGLOBIN 23.5 pg (29.0-33.0); MEAN CORPUSCULAR HGB CONC 30.8 g/dl (32.0-37.0); MEAN CORPUSCULAR VOLUME 76.1 fl (82.0-101.0); MEAN PLATELET VOLUME 10.6 fl (7.4-10.4); MONOCYTE # 0.9 10^3/ul (0.3-0.9); MONOCYTES % 7.5 % (0.0-11.0); NEUTROPHILS % 81.1 % (39.0-77.0); PLATELET COUNT 211 10^3/UL (140-440); RED BLOOD COUNT 5.22 10^6/ul (4.70-6.10); RED CELL DISTRIBUTION WIDTH 19.4 % (11.5-14.5); UNCORRECTED WBC 12.3 10^3/ul (4.8-10.8); WHITE BLOOD COUNT 12.3 10^3/ul (4.8-10.8)
[2016-07-07 06:42] LABS: CONDITION 1; LH ANALYZER COMMENTS 1
--- NOTE | 2016-07-07 06:50 | CONS ---
Date/Time of Note Date/Time of Note DATE: 07/07/16 TIME: 06:41 Consult Date/Type/Reason Admit Date/Time Jun 26, 2016 at 11:39 Initial Consult Date Type of Consultation: renal Ordering Provider: AMADOU DENSON MD Subjective sedated and not responsive. Family deciding about trach today. Objective Vital Signs Date Time Temp Pulse Resp B/P Pulse Ox O2 Delivery O2 Flow Rate FiO2 07/07/16 06:00 30 07/07/16 05:10 105 16 100 07/07/16 02:00 101/66 07/07/16 00:00 98.7 Mechanical Ventilator Intake and Output 07/06/16 07/06/16 07/07/16 15:00 23:00 07:00 Intake Total 455 ml 680 ml 535 ml Output Total 265 ml 440 ml 200 ml Balance 190 ml 240 ml 335 ml Results/Medications Result Diagram: 07/05/16 0900 07/06/16 1819 Results 24 hrs Laboratory Tests Test 07/06/16 09:26 07/06/16 18:19 Lab Scanned Report REFERENCE LAB Anion Gap 11 Blood Urea Nitrogen 53 H Calcium Level 7.9 L Carbon Dioxide Level 35 H Chloride Level 105 Creatinine 1.15 Glucose Level 113 Potassium Level 4.3 Sodium Level 147 H Medications Current Medications Ondansetron HCl (Zofran Inj) 4 mg Q6H PRN IV NAUSEA AND/OR VOMITING; Start at 12:00 Nitroglycerin (Nitroglycerin (Sl Tab) 0.4 Mg) 1 tab Q5M PRN SL CHEST PAIN; Start 06/26/16 at 12:00 Acetaminophen (Tylenol Supp) 650 mg Q4H PRN ID PAIN LEVEL 1-3 OR FEVER Last administered on 07/01/16 19:57; Admin Dose 650 MG; Start 06/26/16 at 12:00 Morphine Sulfate (morphine) 2 mg Q4H PRN IV PAIN LEVEL 7-10; Start 06/26/16 at 12:00 Lorazepam (Ativan) 1 mg Q2H PRN IV ANXIETY Last administered on 07/04/16 19:31 ; Admin Dose 1 MG; Start 06/26/16 at 12:00 Heparin Sodium (Porcine) 5000 unit 5,000 unit BID SC Last administered on 21:00; Admin Dose 5,000 UNIT; Start 06/26/16 at 21:00 Cefepime HCl (Maxipime 1gm/50 ml (Pmx)) 50 ml @ 100 mls/hr Q12 IVPB Last administered on 07/06/16 20:55; Admin Dose 100 MLS/HR; Start 06/26/16 at 15:00 IV Flush (NS 10 ml) 10 ml PRN PRN IV IV PROTOCOL; Start 06/27/16 at 16:30 Metoprolol Tartrate 25 mg 25 mg BID PO Last administered on 07/04/16 08:36; Admin Dose 25 MG; Start 06/28/16 at 21:00 Fentanyl/Dextrose (D5W) 100 ml @ 0 mls/hr TITRATE IV Last administered on 21:02; Admin Dose 5 MLS/HR; Start 06/29/16 at 15:30 Nystatin (Nystatin Susp) 5 ml TID PO Last administered on 07/06/16 20:55; Admin Dose 5 ML; Start 06/30/16 at 21:00 Hydralazine HCl (Apresoline) 10 mg Q8 PO Last administered on 07/05/16 06:25; Admin Dose 10 MG; Start 07/01/16 at 14:00 Pantoprazole (Protonix Iv) 40 mg BID@06,18 IV Last administered on 07/07/16 06: 20; Admin Dose 40 MG; Start 07/07/16 at 06:00 Assessment/Plan Additional Assessment/Plan Acute on chronic renal failure-creatinine baseline Bacterial endocarditis Altered mental status-on sedation mild hypernatremia continue current rx-sodium improved from yesterday. AMADOU DENSON MD Jul 07, 2016 06:50
[2016-07-07 06:51] LABS: POTASSIUM 4.5 mmol/L (3.5-5.1)
[2016-07-07 06:54] LABS: CREATININE 1.17 mg/dl (0.61-1.24)
[2016-07-07 06:55] LABS: CALCIUM 7.9 mg/dl (8.4-10.2); PHOSPHORUS 3.5 mg/dl (2.5-4.9)
[2016-07-07] MEDS: METOPROLOL 25 MG TAB PO SCH ×2 (08:05→21:16)
--- NOTE | 2016-07-07 08:11 | RADRPT ---
PROCEDURE: XR Chest. CLINICAL INDICATION: Shortness of breath. TECHNIQUE: Single frontal view. COMPARISON: 07/04/2016. FINDINGS: The endotracheal tube, nasogastric tube, and left arm PICC line remain in satisfactory position. Le ft basilar atelectasis or pneumonia is unchanged. Pulmonary edema is worse than seen previously. The heart is enlarged. There is no pleural effusion. There is no pneumothorax. IMPRESSION: 1. Worse pulmonary edema. 2. Left basilar atelectasis or pneumonia, unchanged. 3. No other change from 07/04/2016. RPTAT: QQ .Radu Schneider MD, MD Date Time Electronically viewed and signed by .Radu Schneider MD, on 07/07/2016 08:11 .R/
[2016-07-07] MEDS: CEFEPIME 1GM/50 ML (PMX) 50 ML IVPB SCH ×2 (08:17→21:16)
[2016-07-07] MEDS: NYSTATIN SUSP 5 ML CUP PO SCH ×3 (08:18→21:16)
[2016-07-07] MEDS: HEPARIN 5,000 UNIT/0.5 ML SYG SC SCH ×2 (08:18→21:18)
--- NOTE | 2016-07-07 09:12 | CONS ---
Date/Time of Note Date/Time of Note DATE: 07/07/16 TIME: 09:04 Assessment/Plan Assessment/Plan Additional Assessment/Plan Microcytic anemia: - continue protonix BID - replete with iv iron in process Transaminitis - 2/2 to sepsis, or possible to viral hepatitis given his IVDU history. Currently transaminase stable - HCV pos, HCV RNA 9, 017,009 -Recommend outpatient follow-up with inside sales account representative for HCV treatment Dysphagia - OG tube feed. Hold for residual greater than 150mL. Encephalopathy - ammonia WNL, likely 2/2 to Hepatitis C Shortness of breath - hypoxemic respiratory failure - multifactorial - heart failure acute on chronic - Vent dependent - intubated - f/u pulm recs Sepsis severe 2/2 to pneumonia - follow ID recs CHF - diastolic dysfunction acute on chronic - EF recent shows 40%, D shaped left ventricle - f/u cardiology Further recommendations depend on clinical course Patient seen in collaboration with Dr. Bradley GI sign off, available as needed for consultation Consultation Date/Type/Reason Admit Date/Time Jun 26, 2016 at 11:39 Type of Consultation: GI Reason for Consultation Transaminitis Referring Provider: AMADOU DENSON MD 24 HR Interval Summary Free Text/Dictation Tube feed at 40 with minimal residual HCV RNA elevated at 9,017,009 Recommend outpatient follow-up for HCV treatment LFTs trending downward Stool OB negative, continue PPI twice daily GI sign off Exam/Review of Systems Vital Signs Vitals Vital Signs Date Time Temp Pulse Resp B/P Pulse Ox O2 Delivery O2 Flow Rate FiO2 07/07/16 06:00 113 17 100/60 98 Mechanical Ventilator 07/07/16 06:00 30 07/07/16 04:00 98.5 Intake and Output 07/06/16 07/06/16 07/07/16 15:00 23:00 07:00 Intake Total 455 ml 680 ml 555 ml Output Total 265 ml 440 ml 200 ml Balance 190 ml 240 ml 355 ml Exam Constitution: alert, tracking with eyes Head: atraumatic, normocephalic Eyes: EOMI, nl conjunctiva, nl lids, nl sclera ENMT: mucosa pink and moist, nl external ears & nose, nl lips & teeth, nl nasal mucosa & septum Neck: non-tender, supple Respiratory: clear to auscultation, normal air movement Cardiovascular: nl pulses, regular rate and rhythm Gastrointestinal: bowel sounds, non-tender, soft Results Result Diagram: 07/07/16 0530 07/07/16 0530 Results 24 hrs Laboratory Tests Test 07/06/16 09:26 07/06/16 18:19 07/07/16 05:30 Lab Scanned Report REFERENCE LAB Anion Gap 11 15 Blood Urea Nitrogen 53 H 57 H Calcium Level 7.9 L 7.9 L Carbon Dioxide Level 35 H 32 H Chloride Level 105 106 Creatinine 1.15 1.17 Glucose Level 113 111 Potassium Level 4.3 4.5 Sodium Level 147 H 148 H Basophils # 0.0 Basophils % 0.3 Blood Morphology Comment Eosinophils # 0.1 Eosinophils % 0.7 Hematocrit 39.7 L Hemoglobin 12.2 L Lymphocytes # 1.3 Lymphocytes % 10.4 L Magnesium Level 2.0 Mean Corpuscular Hemoglobin 23.5 L Mean Corpuscular Hemoglobin Concent 30.8 L Mean Corpuscular Volume 76.1 L Mean Platelet Volume 10.6 H Monocytes # 0.9 Monocytes % 7.5 Neutrophils # 10.0 H Neutrophils % 81.1 H Nucleated Red Blood Cells # 0.0 Nucleated Red Blood Cells % 0.0 Phosphorus Level 3.5 Platelet Count 211 # Red Blood Count 5.22 Red Cell Distribution Width 19.4 H White Blood Count 12.3 H Medications Medications Current Medications Ondansetron HCl (Zofran Inj) 4 mg Q6H PRN IV NAUSEA AND/OR VOMITING; Start at 12:00 Nitroglycerin (Nitroglycerin (Sl Tab) 0.4 Mg) 1 tab Q5M PRN SL CHEST PAIN; Start 06/26/16 at 12:00 Acetaminophen (Tylenol Supp) 650 mg Q4H PRN OR PAIN LEVEL 1-3 OR FEVER Last administered on 07/01/16 19:57; Admin Dose 650 MG; Start 06/26/16 at 12:00 Morphine Sulfate (morphine) 2 mg Q4H PRN IV PAIN LEVEL 7-10; Start 06/26/16 at 12:00 Lorazepam (Ativan) 1 mg Q2H PRN IV ANXIETY Last administered on 07/04/16 19:31 ; Admin Dose 1 MG; Start 06/26/16 at 12:00 Heparin Sodium (Porcine) 5000 unit 5,000 unit BID SC Last administered on 08:18; Admin Dose 5,000 UNIT; Start 06/26/16 at 21:00 Cefepime HCl (Maxipime 1gm/50 ml (Pmx)) 50 ml @ 100 mls/hr Q12 IVPB Last administered on 07/07/16 08:17; Admin Dose 100 MLS/HR; Start 06/26/16 at 15:00 IV Flush (NS 10 ml) 10 ml PRN PRN IV IV PROTOCOL; Start 06/27/16 at 16:30 Metoprolol Tartrate 25 mg 25 mg BID PO Last administered on 07/04/16 08:36; Admin Dose 25 MG; Start 06/28/16 at 21:00 Fentanyl/Dextrose (D5W) 100 ml @ 0 mls/hr TITRATE IV Last administered on 21:02; Admin Dose 5 MLS/HR; Start 06/29/16 at 15:30 Nystatin (Nystatin Susp) 5 ml TID PO Last administered on 07/07/16 08:18; Admin Dose 5 ML; Start 06/30/16 at 21:00 Hydralazine HCl (Apresoline) 10 mg Q8 PO Last administered on 07/05/16 06:25; Admin Dose 10 MG; Start 07/01/16 at 14:00 Pantoprazole (Protonix Iv) 40 mg BID@06,18 IV Last administered on 07/07/16 06: 20; Admin Dose 40 MG; Start 07/07/16 at 06:00 DARIUSZ GARZA Jul 07, 2016 09:12
--- NOTE | 2016-07-07 11:17 | CONS ---
Date/Time of Note Date/Time of Note DATE: 07/07/16 TIME: 11:10 Consult Date/Type/Reason Admit Date/Time Jun 26, 2016 at 11:39 Initial Consult Date Type of Consultation: Pulm Ordering Provider: [facility] Subjective On mechanical ventilation. Sedation with fentanyl gtt. Awake on vent. Objective Vital Signs Date Time Temp Pulse Resp B/P Pulse Ox O2 Delivery O2 Flow Rate FiO2 07/07/16 11:00 113 16 105/60 99 Mechanical Ventilator 07/07/16 09:00 99.0 07/07/16 08:00 30 Intake and Output 07/06/16 07/06/16 07/07/16 15:00 23:00 07:00 Intake Total 455 ml 680 ml 595 ml Output Total 265 ml 440 ml 230 ml Balance 190 ml 240 ml 365 ml NECK: Supple. ++ JVD or lymphadenopathy. CARDIAC: S1, S2, 4/6 systolic murmur and + S3 CHEST: Diminished air entry bilaterally. ABDOMEN: Soft, nontender. No guarding or rebound. EXTREMITIES: No cyanosis, clubbing, edema. Results/Medications Result Diagram: 07/07/16 0530 07/07/16 0530 Results 24 hrs Laboratory Tests Test 07/06/16 18:19 07/07/16 05:30 Anion Gap 11 15 Blood Urea Nitrogen 53 H 57 H Calcium Level 7.9 L 7.9 L Carbon Dioxide Level 35 H 32 H Chloride Level 105 106 Creatinine 1.15 1.17 Glucose Level 113 111 Potassium Level 4.3 4.5 Sodium Level 147 H 148 H Basophils # 0.0 Basophils % 0.3 Blood Morphology Comment Eosinophils # 0.1 Eosinophils % 0.7 Hematocrit 39.7 L Hemoglobin 12.2 L Lymphocytes # 1.3 Lymphocytes % 10.4 L Magnesium Level 2.0 Mean Corpuscular Hemoglobin 23.5 L Mean Corpuscular Hemoglobin Concent 30.8 L Mean Corpuscular Volume 76.1 L Mean Platelet Volume 10.6 H Monocytes # 0.9 Monocytes % 7.5 Neutrophils # 10.0 H Neutrophils % 81.1 H Nucleated Red Blood Cells # 0.0 Nucleated Red Blood Cells % 0.0 Phosphorus Level 3.5 Platelet Count 211 # Red Blood Count 5.22 Red Cell Distribution Width 19.4 H White Blood Count 12.3 H Medications Current Medications Ondansetron HCl (Zofran Inj) 4 mg Q6H PRN IV NAUSEA AND/OR VOMITING; Start at 12:00 Nitroglycerin (Nitroglycerin (Sl Tab) 0.4 Mg) 1 tab Q5M PRN SL CHEST PAIN; Start 06/26/16 at 12:00 Acetaminophen (Tylenol Supp) 650 mg Q4H PRN [place] PAIN LEVEL 1-3 OR FEVER Last administered on 07/01/16 19:57; Admin Dose 650 MG; Start 06/26/16 at 12:00 Morphine Sulfate (morphine) 2 mg Q4H PRN IV PAIN LEVEL 7-10; Start 06/26/16 at 12:00 Lorazepam (Ativan) 1 mg Q2H PRN IV ANXIETY Last administered on 07/04/16 19:31 ; Admin Dose 1 MG; Start 06/26/16 at 12:00 Heparin Sodium (Porcine) 5000 unit 5,000 unit BID SC Last administered on 08:18; Admin Dose 5,000 UNIT; Start 06/26/16 at 21:00 Cefepime HCl (Maxipime 1gm/50 ml (Pmx)) 50 ml @ 100 mls/hr Q12 IVPB Last administered on 07/07/16 08:17; Admin Dose 100 MLS/HR; Start 06/26/16 at 15:00 IV Flush (NS 10 ml) 10 ml PRN PRN IV IV PROTOCOL; Start 06/27/16 at 16:30 Metoprolol Tartrate 25 mg 25 mg BID PO Last administered on 07/04/16 08:36; Admin Dose 25 MG; Start 06/28/16 at 21:00 Fentanyl/Dextrose (D5W) 100 ml @ 0 mls/hr TITRATE IV Last administered on 21:02; Admin Dose 5 MLS/HR; Start 06/29/16 at 15:30 Nystatin (Nystatin Susp) 5 ml TID PO Last administered on 07/07/16 08:18; Admin Dose 5 ML; Start 06/30/16 at 21:00 Hydralazine HCl (Apresoline) 10 mg Q8 PO Last administered on 07/05/16 06:25; Admin Dose 10 MG; Start 07/01/16 at 14:00 Pantoprazole (Protonix Iv) 40 mg BID@06,18 IV Last administered on 07/07/16t 06: 20; Admin Dose 40 MG; Start 07/07/16 at 06:00 Assessment/Plan Additional Assessment/Plan IMPRESSION: 1. Respiratory Failure/Vent Dependence 2. 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 Bacterial endocarditis with valvular heart disease. 4. History of prolonged and recent intravenous drug abuse. 5. History of pulmonary embolus. 6. Renal insufficiency RECS: 1. Failed CPAP trial 2. Would consider trial of afterload reduction with nipride gtt 3. Broad-spectrum antibiotics. 4. DVT and GI prophylaxis. 5. Would reassess candidacy for valve replacement Case d/w mother and RN 35 min CC time TAY BONNER MD Jul 07, 2016 11:17
--- NOTE | 2016-07-07 11:38 | PN ---
Date/Time of Note Date/Time of Note DATE: 07/07/16 TIME: 11:36 Assessment/Plan VTE Prophylaxis VTE Prophylaxis Intervention: heparin Lines/Catheters IV Catheter Type (from Nrs): PICC Line Central line still needed: Yes Urinary Cath still in place: Yes Reason Cath still needed: urinary retention Assessment/Plan Chief Complaint/Hosp Course Assessment/Plan: 36 yo unfortunate male with a past medical history of Bacterial Endocarditis finished 6 week course of IV antibiotics, Drug abuse, Nicotine abuse, Right popliteal thrombosis, PE (on Eliquis prior to admission), Microcytic anemia, CHF - diastolic, who came for worsening shortness of breath. 1. Shortness of breath - hypoxemic respiratory failure - multifactorial - heart failure acute on chronic - Vent dependent - intubated. Has not been able to pass CPAP trials the last few days. - f/u pulm recs, CV as well - for possible CPAP trial again tomorrow - as well, possible trach placement has been discussed as well with family and pulm team - f/u on this. 2. Sepsis - severe 2/2 to pneumonia (HCAP) + endocarditis - tachycardia/ leukocytosis - WBC still slightly elevated - per ID, continue IV cefepime (vanco d/c'ed) - f/u respiratory cultures, - appreciate ID recs 3. CHF - diastolic dysfunction acute on chronic - EF recent shows 40%, D shaped left ventricle - f/u CV rec's - f/u renal rec's, monitor UO 4. Hypernatremia - appreciate nephrology consult - improving, but still slightly elevated (149) - f/u renal rec's, per discussion with them, will increase free H2O today as well. 5. BESSIE - acute on chronic - 2/2 #2 - improving - monitor, f/u renal rec's. per discussion with them, now on bumex BID now, monitor UO and swelling. 6. Transaminitis - 2/2 to sepsis, or possible atypical pneumonia, monitor trend - improving 7. PE - heparin 8. Right popliteal thrombus - pt presently on heparin sub Q at this time 9. Microcytic anemia - monitor H/H, transfuse if hgb < 8 g/dL. Given low Fe levels, start ferricilit today 10. GI ppx - protonix drip for now, f/u GI rec's 11. DVT ppx - heparin dispo - f/u recs, appreciate palliative care consult - will monitor functional status - overall prognosis is poor - DNR/DNI - family agrees to continue current care, considering trach placement as well - plan would be terminal manager abx tx and possible valve replacement surgery in future if more medically stable then critical care time today = 40 min Problems: Subjective 24 Hr Interval Summary Free Text/Dictation Still intubated, no acute events overnight. Exam/Review of Systems Vital Signs Vitals Vital Signs Date Time Temp Pulse Resp B/P Pulse Ox O2 Delivery O2 Flow Rate FiO2 07/07/16 11:00 113 16 105/60 99 Mechanical Ventilator 07/07/16 09:00 99.0 07/07/16 08:00 30 Intake and Output 07/06/16 07/06/16 07/07/16 15:00 23:00 07:00 Intake Total 455 ml 680 ml 595 ml Output Total 265 ml 440 ml 230 ml Balance 190 ml 240 ml 365 ml Exam Gen Evelyn: intubated, opens eyes HEENT: NC/AT, ETT in place NECK: supple, no thyromegaly THORAX: symmetrical, no obvious deformities CV: S1S2, RRR, III/ holosystolic murmur best heard over mitral area - blowing type Lungs: Coarse breath sounds, scattered wheezing, bibasilar crackles Abd: soft, NT/ND, +BS, no rebound, no guarding, neg HSM : scrotal edema, with some skin sloughing noted EXT: 2 + bilateral upper/lower extremities edema, no ecchymosis, no clubbing, FROM, mild cyanosis noted at phalanges bilaterally lower extremities Neuro: intubated Psych: agitated at times Results Result Diagram: 07/07/16 0530 07/07/16 0530 Results 24 hrs Laboratory Tests Test 07/06/16 18:19 07/07/16 05:30 Anion Gap 11 15 Blood Urea Nitrogen 53 H 57 H Calcium Level 7.9 L 7.9 L Carbon Dioxide Level 35 H 32 H Chloride Level 105 106 Creatinine 1.15 1.17 Glucose Level 113 111 Potassium Level 4.3 4.5 Sodium Level 147 H 148 H Basophils # 0.0 Basophils % 0.3 Blood Morphology Comment Eosinophils # 0.1 Eosinophils % 0.7 Hematocrit 39.7 L Hemoglobin 12.2 L Lymphocytes # 1.3 Lymphocytes % 10.4 L Magnesium Level 2.0 Mean Corpuscular Hemoglobin 23.5 L Mean Corpuscular Hemoglobin Concent 30.8 L Mean Corpuscular Volume 76.1 L Mean Platelet Volume 10.6 H Monocytes # 0.9 Monocytes % 7.5 Neutrophils # 10.0 H Neutrophils % 81.1 H Nucleated Red Blood Cells # 0.0 Nucleated Red Blood Cells % 0.0 Phosphorus Level 3.5 Platelet Count 211 # Red Blood Count 5.22 Red Cell Distribution Width 19.4 H White Blood Count 12.3 H Medications Medications Current Medications Ondansetron HCl (Zofran Inj) 4 mg Q6H PRN IV NAUSEA AND/OR VOMITING; Start at 12:00 Nitroglycerin (Nitroglycerin (Sl Tab) 0.4 Mg) 1 tab Q5M PRN SL CHEST PAIN; Start 06/26/16 at 12:00 Acetaminophen (Tylenol Supp) 650 mg Q4H PRN [place] PAIN LEVEL 1-3 OR FEVER Last administered on 07/01/16 19:57; Admin Dose 650 MG; Start 06/26/16 at 12:00 Morphine Sulfate (morphine) 2 mg Q4H PRN IV PAIN LEVEL 7-10; Start 06/26/16 at 12:00 Lorazepam (Ativan) 1 mg Q2H PRN IV ANXIETY Last administered on 07/04/16 19:31 ; Admin Dose 1 MG; Start 06/26/16 at 12:00 Heparin Sodium (Porcine) 5000 unit 5,000 unit BID SC Last administered on 08:18; Admin Dose 5,000 UNIT; Start 06/26/16 at 21:00 Cefepime HCl (Maxipime 1gm/50 ml (Pmx)) 50 ml @ 100 mls/hr Q12 IVPB Last administered on 07/07/16 08:17; Admin Dose 100 MLS/HR; Start 06/26/16 at 15:00 IV Flush (NS 10 ml) 10 ml PRN PRN IV IV PROTOCOL; Start 06/27/16 at 16:30 Metoprolol Tartrate 25 mg 25 mg BID PO Last administered on 07/04/16 08:36; Admin Dose 25 MG; Start 06/28/16 at 21:00 Fentanyl/Dextrose (D5W) 100 ml @ 0 mls/hr TITRATE IV Last administered on 21:02; Admin Dose 5 MLS/HR; Start 06/29/16 at 15:30 Nystatin (Nystatin Susp) 5 ml TID PO Last administered on 07/07/16 08:18; Admin Dose 5 ML; Start 06/30/16 at 21:00 Hydralazine HCl (Apresoline) 10 mg Q8 PO Last administered on 07/05/16 06:25; Admin Dose 10 MG; Start 07/01/16 at 14:00 Pantoprazole (Protonix Iv) 40 mg BID@06,18 IV Last administered on 07/07/16 06: 20; Admin Dose 40 MG; Start 07/07/16 at 06:00 ROBERTO DAVISON Jul 07, 2016 11:38
--- NOTE | 2016-07-07 13:50 | CONS ---
Date/Time of Note Date/Time of Note DATE: 07/07/16 TIME: 13:48 Consult Date/Type/Reason Admit Date/Time Jun 26, 2016 at 11:39 Type of Consultation: id Ordering Provider: ASAD DAS MD, [facility] Subjective sedated, comfortable on vent, no fevers, nad Objective Vital Signs Date Time Temp Pulse Resp B/P Pulse Ox O2 Delivery O2 Flow Rate FiO2 07/07/16 12:00 99.1 115 16 105/63 100 Mechanical Ventilator 07/07/16 08:00 30 Intake and Output 07/06/16 07/06/16 07/07/16 14:59 22:59 06:59 Intake Total 455 ml 680 ml 600 ml Output Total 265 ml 400 ml 270 ml Balance 190 ml 280 ml 330 ml Results/Medications Result Diagram: 07/07/16 0530 07/07/16 0530 Results 24 hrs Laboratory Tests Test 07/06/16 18:19 07/07/16 05:30 Anion Gap 11 15 Blood Urea Nitrogen 53 H 57 H Calcium Level 7.9 L 7.9 L Carbon Dioxide Level 35 H 32 H Chloride Level 105 106 Creatinine 1.15 1.17 Glucose Level 113 111 Potassium Level 4.3 4.5 Sodium Level 147 H 148 H Basophils # 0.0 Basophils % 0.3 Blood Morphology Comment Eosinophils # 0.1 Eosinophils % 0.7 Hematocrit 39.7 L Hemoglobin 12.2 L Lymphocytes # 1.3 Lymphocytes % 10.4 L Magnesium Level 2.0 Mean Corpuscular Hemoglobin 23.5 L Mean Corpuscular Hemoglobin Concent 30.8 L Mean Corpuscular Volume 76.1 L Mean Platelet Volume 10.6 H Monocytes # 0.9 Monocytes % 7.5 Neutrophils # 10.0 H Neutrophils % 81.1 H Nucleated Red Blood Cells # 0.0 Nucleated Red Blood Cells % 0.0 Phosphorus Level 3.5 Platelet Count 211 # Red Blood Count 5.22 Red Cell Distribution Width 19.4 H White Blood Count 12.3 H Medications Current Medications Ondansetron HCl (Zofran Inj) 4 mg Q6H PRN IV NAUSEA AND/OR VOMITING; Start at 12:00 Nitroglycerin (Nitroglycerin (Sl Tab) 0.4 Mg) 1 tab Q5M PRN SL CHEST PAIN; Start 06/26/16 at 12:00 Acetaminophen (Tylenol Supp) 650 mg Q4H PRN [place] PAIN LEVEL 1-3 OR FEVER Last administered on 07/01/16 19:57; Admin Dose 650 MG; Start 06/26/16 at 12:00 Morphine Sulfate (morphine) 2 mg Q4H PRN [place] PAIN LEVEL 7-10; Start 06/26/16 at 12:00 Lorazepam (Ativan) 1 mg Q2H PRN IV ANXIETY Last administered on 07/04/16 19:31 ; Admin Dose 1 MG; Start 06/26/16 at 12:00 Heparin Sodium (Porcine) 5000 unit 5,000 unit BID SC Last administered on 08:18; Admin Dose 5,000 UNIT; Start 06/26/16 at 21:00 Cefepime HCl (Maxipime 1gm/50 ml (Pmx)) 50 ml @ 100 mls/hr Q12 IVPB Last administered on 07/07/16 08:17; Admin Dose 100 MLS/HR; Start 06/26/16 at 15:00 IV Flush (NS 10 ml) 10 ml PRN PRN IV IV PROTOCOL; Start 06/27/16 at 16:30 Metoprolol Tartrate 25 mg 25 mg BID PO Last administered on 07/04/16 08:36; Admin Dose 25 MG; Start 06/28/16 at 21:00 Fentanyl/Dextrose (D5W) 100 ml @ 0 mls/hr TITRATE IV Last administered on 21:02; Admin Dose 5 MLS/HR; Start 06/29/16 at 15:30 Nystatin (Nystatin Susp) 5 ml TID PO Last administered on 07/07/16 13:04; Admin Dose 5 ML; Start 06/30/16 at 21:00 Hydralazine HCl (Apresoline) 10 mg Q8 PO Last administered on 07/05/16 06:25; Admin Dose 10 MG; Start 07/01/16 at 14:00 Pantoprazole (Protonix Iv) 40 mg BID@06,18 IV Last administered on 07/07/16 06: 20; Admin Dose 40 MG; Start 07/07/16 at 06:00 Assessment/Plan Chief Complaint/Hosp Course INDWELLINGS: Endotracheal tube, NG tube, Merino catheter, left upper extremity PICC line placed on June 27. PHYSICAL EXAMINATION: GENERAL: This is an ill-appearing, middle-aged white man who is lying comfortably in bed, the pt is sedated. HEENT: Head atraumatic, normocephalic. Sclerae anicteric. Buccal mucosa dry. NECK: Supple. CHEST: Rise symmetrical. Breath sounds diminished to bases. HEART: S1, S2. ABDOMEN: Soft, bowel tones present. EXTREMITIES: Bilateral edema. ASSESSMENT: 1. Acute respiratory failure secondary to congestive heart failure exacerbation and possible pneumonia. 2. Acute renal failure==> improving renal function. 3. Bacterial endocarditis with persistent aortic and mitral valve vegetations. 4. History of alpha hemolytic strep septicemia in March 2016, completed 6 weeks' treatment. 5. History of pulmonary emboli. 6. History of IV drug abuse. PLAN: The patient remains hemodynamically stable. Cultures had been negative. Continue present care, weaning trials as per pulmonary team, card/CTS rec-s. DW staff Problems: RAYMOND HER NP Jul 07, 2016 13:50
--- NOTE | 2016-07-07 14:13 | PN ---
Date/Time of Note Date/Time of Note DATE: 07/07/16 TIME: 14:12 Assessment/Plan Lines/Catheters IV Catheter Type (from Nrs): PICC Line Merino in Place (from Nrs): Yes Assessment/Plan Chief Complaint/Hosp Course IMPRESSION: 1. Endocarditis involving aortic and mitral valve. 2. Aortic regurgitation. 3. Mitral regurgitation. 4. Cardiomyopathy with diminished ejection fraction. 5. Renal failure. 6. History of drug use. 7. Elevation of the transaminases. 8. Coagulopathy. RECOMMENDATIONS: This patient is not a candidate to undergo surgery at the present time; too high risk for surgical repair. Please continue antibiotics. Discussed with the nursing staff. and the mother continue ABX Problems: Subjective 24 Hr Interval Summary Constitutional: improved Pain Control: mild Exam/Review of Systems Vital Signs Vitals Vital Signs Date Time Temp Pulse Resp B/P Pulse Ox O2 Delivery O2 Flow Rate FiO2 07/07/16 12:00 99.1 115 16 105/63 100 Mechanical Ventilator 07/07/16 08:00 30 Intake and Output 07/06/16 07/06/16 07/07/16 15:00 23:00 07:00 Intake Total 455 ml 680 ml 595 ml Output Total 265 ml 440 ml 230 ml Balance 190 ml 240 ml 365 ml Exam Neck: non-tender, supple Respiratory: clear to auscultation, normal air movement Cardiovascular: nl pulses, regular rate and rhythm Gastrointestinal: nl liver, spleen, non-tender, soft Results Result Diagram: 07/07/16 0530 07/07/16 0530 KARI ZAMAN MD Jul 07, 2016 14:13
[2016-07-07] MEDS: FENTAnyl 1,000 MCG in DEXTROSE 5% 80 ML IV SCH (18:22)
[2016-07-08] VITALS (55 sets, daily range): BP systolic 95–131; BP diastolic 52–87; PULSE 99–130; RESP 16–28
[2016-07-08] MEDS: BUMETANIDE 1 MG INJ IV SCH (05:28)
[2016-07-08] MEDS: POTASSIUM CHLORIDE 20 MEQ POWDER FOR ORAL SOLN GTB SCH (05:28)
[2016-07-08] MEDS: PANTOPRAZOLE 40 MG INJ IV SCH ×2 (05:29→17:55)
[2016-07-08 07:03] LABS: EOSINOPHILS # 0.1 10^3/ul (0.0-0.5); EOSINOPHILS % 0.5 % (0.0-7.0); HEMATOCRIT 42.1 % (42.0-52.0); HEMOGLOBIN 12.8 g/dl (14.0-18.0); LYMPHOCYTES # 1.5 10^3/ul (0.8-2.9); LYMPHOCYTES % 13.1 % (15.0-51.0); MEAN CORPUSCULAR HEMOGLOBIN 23.3 pg (29.0-33.0); MEAN CORPUSCULAR HGB CONC 30.5 g/dl (32.0-37.0); MEAN CORPUSCULAR VOLUME 76.5 fl (82.0-101.0); MEAN PLATELET VOLUME 10.9 fl (7.4-10.4); MONOCYTES % 8.6 % (0.0-11.0); NEUTROPHIL # 9.1 10^3/ul (1.6-7.5); NEUTROPHILS % 77.8 % (39.0-77.0); PLATELET COUNT 238 10^3/UL (140-440); RED CELL DISTRIBUTION WIDTH 20.2 % (11.5-14.5); UNCORRECTED WBC 11.7 10^3/ul (4.8-10.8); WHITE BLOOD COUNT 11.7 10^3/ul (4.8-10.8)
[2016-07-08 07:08] LABS: CONDITION 1; LH ANALYZER COMMENTS 1
[2016-07-08 07:19] LABS: CREATININE 1.29 mg/dl (0.61-1.24)
--- NOTE | 2016-07-08 08:00 | CONS ---
Date/Time of Note Date/Time of Note DATE: 07/08/16 TIME: 07:46 Assessment/Plan Assessment/Plan Additional Assessment/Plan Worsening chf hypernatremia stable at 148 positive i and o Tachycardia Hold potassium increase bumex to 2 mg q 12 increase free water Consultation Date/Type/Reason Admit Date/Time Jun 26, 2016 at 11:39 Type of Consultation: Renal Referring Provider: ASAD DAS MD, [facility] 24 HR Interval Summary Subjective hx not possible: pt non-verbal Exam/Review of Systems Vital Signs Vitals Vital Signs Date Time Temp Pulse Resp B/P Pulse Ox O2 Delivery O2 Flow Rate FiO2 07/08/16 07:00 115 19 109/63 99 Mechanical Ventilator 07/08/16 06:00 30 07/08/16 04:00 99.0 Intake and Output 07/07/16 07/07/16 07/08/16 15:00 23:00 07:00 Intake Total 510 ml 581 ml 485.0 ml Output Total 275 ml 355 ml 550 ml Balance 235 ml 226 ml -65.0 ml Exam Sister states patient responds to commands and blinks eyes appropriately. Cardiovascular: other (115), regular rate and rhythm Gastrointestinal: non-tender, other (not distended), soft Neurological: SACK SORTER II-XII intact, other (didin't squeeze hand to commands and possibly blinked appropriately) Results I and O: 1576/1150 Result Diagram: 07/08/16 0431 07/08/16 0431 Results 24 hrs Laboratory Tests Test 07/08/16 04:31 Anion Gap 14 Basophils # 0.0 Basophils % 0.0 Blood Morphology Comment Blood Urea Nitrogen 66 H Calcium Level 8.0 L Carbon Dioxide Level 31 Chloride Level 108 Creatinine 1.29 H Eosinophils # 0.1 Eosinophils % 0.5 Glucose Level 153 Hematocrit 42.1 Hemoglobin 12.8 L Lymphocytes # 1.5 Lymphocytes % 13.1 L Mean Corpuscular Hemoglobin 23.3 L Mean Corpuscular Hemoglobin Concent 30.5 L Mean Corpuscular Volume 76.5 L Mean Platelet Volume 10.9 H Monocytes # 1.0 H Monocytes % 8.6 Neutrophils # 9.1 H Neutrophils % 77.8 H Nucleated Red Blood Cells # 0.0 Nucleated Red Blood Cells % 0.0 Platelet Count 238 Potassium Level 5.0 Red Blood Count 5.50 Red Cell Distribution Width 20.2 H Sodium Level 148 H White Blood Count 11.7 H Medications Medications Current Medications Ondansetron HCl (Zofran Inj) 4 mg Q6H PRN IV NAUSEA AND/OR VOMITING; Start at 12:00 Nitroglycerin (Nitroglycerin (Sl Tab) 0.4 Mg) 1 tab Q5M PRN SL CHEST PAIN; Start 06/26/16 at 12:00 Acetaminophen (Tylenol Supp) 650 mg Q4H PRN [place] PAIN LEVEL 1-3 OR FEVER Last administered on 07/01/16 19:57; Admin Dose 650 MG; Start 06/26/16 at 12:00 Morphine Sulfate (morphine) 2 mg Q4H PRN [place] PAIN LEVEL 7-10; Start 06/26/16 at 12:00 Lorazepam (Ativan) 1 mg Q2H PRN IV ANXIETY Last administered on 07/04/16 19:31 ; Admin Dose 1 MG; Start 06/26/16 at 12:00 Heparin Sodium (Porcine) 5000 unit 5,000 unit BID SC Last administered on 21:18; Admin Dose 5,000 UNIT; Start 06/26/16 at 21:00 Cefepime HCl (Maxipime 1gm/50 ml (Pmx)) 50 ml @ 100 mls/hr Q12 IVPB Last administered on 07/07/16 21:16; Admin Dose 100 MLS/HR; Start 06/26/16 at 15:00 IV Flush (NS 10 ml) 10 ml PRN PRN IV IV PROTOCOL; Start 06/27/16 at 16:30 Metoprolol Tartrate 25 mg 25 mg BID PO Last administered on 07/07/16 21:16; Admin Dose 25 MG; Start 06/28/16 at 21:00 Fentanyl/Dextrose (D5W) 100 ml @ 0 mls/hr TITRATE IV Last administered on 18:22; Admin Dose 5 MLS/HR; Start 06/29/16 at 15:30 Nystatin (Nystatin Susp) 5 ml TID PO Last administered on 07/07/16 21:16; Admin Dose 5 ML; Start 06/30/16 at 21:00 Hydralazine HCl (Apresoline) 10 mg Q8 PO Last administered on 07/08/16 05:29; Admin Dose 10 MG; Start 07/01/16 at 14:00 Pantoprazole (Protonix Iv) 40 mg BID@,18 IV Last administered on 07/08/16 05: 29; Admin Dose 40 MG; Start 07/07/16 at 06:00 Procedures Procedures cxr: worse pulmonary edema AMADOU DENSON MD Jul 08, 2016 07:56
[2016-07-08] MEDS: METOPROLOL 25 MG TAB PO SCH ×2 (09:00→21:34)
[2016-07-08] MEDS: NYSTATIN SUSP 5 ML CUP PO SCH ×3 (09:04→21:34)
[2016-07-08] MEDS: CEFEPIME 1GM/50 ML (PMX) 50 ML IVPB SCH ×2 (09:04→21:34)
[2016-07-08] MEDS: HEPARIN 5,000 UNIT/0.5 ML SYG SC SCH ×2 (09:11→21:35)
[2016-07-08 10:05] LABS: AADO2 Arterial 42.8 mmHg (7.0-24.0); Allen Test ACCEPTAB; Arterial Base Excess 1.6 mmol/L (-3.0-3); Arterial Fraction of Oxyhgb 97.5 % (93.0-99.0); Arterial HCO3 24.5 mmol/L (22.0-26.0); Arterial MetHb 0.3 % (0.0-1.5); Arterial Total Hemglobin 14.7 g/dl (12.0-18.0); MODE VENT - AC
--- NOTE | 2016-07-08 10:06 | RADRPT ---
PROCEDURE: Chest 1 views. CLINICAL INDICATION: Shortness of breath, on ventilator. TECHNIQUE: AP views of the chest were obtained. COMPARISON: July 07, 2016 FINDINGS: The heart is large. Endotracheal and nasogastric tubes are stable. Retrocardiac opacity is unchange d. Osseous structures are intact. IMPRESSION: Cardiomegaly . Stable retrocardiac opacity that may reflect left lower lobe atelectasis or infiltrate combined with small pleural effusion. RPTAT: AA .Mu Membreno MD, Date Time Electronically viewed and signed by .Mu Membreno MD, on 07/08/2016 10:06 .P/
--- NOTE | 2016-07-08 11:33 | PN ---
Date/Time of Note Date/Time of Note DATE: 07/08/16 TIME: 11:30 Assessment/Plan VTE Prophylaxis VTE Prophylaxis Intervention: heparin Lines/Catheters IV Catheter Type (from Nrs): PICC Line Central line still needed: Yes Urinary Cath still in place: Yes Reason Cath still needed: urinary retention Assessment/Plan Chief Complaint/Hosp Course Assessment/Plan: 36 yo unfortunate male with a past medical history of Bacterial Endocarditis finished 6 week course of IV antibiotics, Drug abuse, Nicotine abuse, Right popliteal thrombosis, PE (on Eliquis prior to admission), Microcytic anemia, CHF - diastolic, who came for worsening shortness of breath. 1. Shortness of breath - hypoxemic respiratory failure - multifactorial - heart failure acute on chronic - Vent dependent - intubated. Has not been able to pass CPAP trials the last few days. - f/u pulm recs, CV as well - for possible CPAP trial again tomorrow - as well, possible trach placement has been discussed as well with family and pulm team - f/u on this. 2. Sepsis - severe 2/2 to pneumonia (HCAP) + endocarditis - tachycardia/ leukocytosis - WBC slightly lower today. - per ID, continue IV cefepime (vanco d/c'ed) - f/u respiratory cultures, - appreciate ID recs 3. CHF - diastolic dysfunction acute on chronic - EF recent shows 40%, D shaped left ventricle - f/u CV rec's - f/u renal rec's, monitor UO 4. Hypernatremia - appreciate nephrology consult - improving, but still slightly elevated (149) - f/u renal rec's, free H2O 5. BESSIE - acute on chronic - 2/2 #2 - improving - monitor, f/u renal rec's. per discussion with them, now on bumex BID now, and have increased dose of this today, monitor UO and swelling. 6. Transaminitis - 2/2 to sepsis, or possible atypical pneumonia, monitor trend - improving 7. PE - heparin 8. Right popliteal thrombus - pt presently on heparin sub Q at this time 9. Microcytic anemia - monitor H/H, transfuse if hgb < 8 g/dL. Pt has been given IV iron as well. 10. GI ppx - protonix drip for now, f/u GI rec's 11. DVT ppx - heparin dispo - f/u recs, appreciate palliative care consult - will monitor functional status - overall prognosis is poor - DNR/DNI - family agrees to continue current care, considering trach placement as well - plan would be exterminator termite abx tx and possible valve replacement surgery in future if more medically stable then critical care time today = 40 min Problems: Subjective 24 Hr Interval Summary Free Text/Dictation Pt had fever this AM, still intubated, otherwise no acute events overnight. Exam/Review of Systems Vital Signs Vitals Vital Signs Date Time Temp Pulse Resp B/P Pulse Ox O2 Delivery O2 Flow Rate FiO2 07/08/16 10:30 107 18 101/52 99 Mechanical Ventilator 07/08/16 08:00 30 07/08/16 08:00 100.3 Intake and Output 07/07/16 07/07/16 07/08/16 15:00 23:00 07:00 Intake Total 510 ml 581 ml 485.0 ml Output Total 275 ml 355 ml 550 ml Balance 235 ml 226 ml -65.0 ml Exam Gen Evelyn: intubated, opens eyes HEENT: NC/AT, ETT in place NECK: supple, no thyromegaly THORAX: symmetrical, no obvious deformities CV: S1S2, RRR, III/ holosystolic murmur best heard over mitral area - blowing type Lungs: Coarse breath sounds, scattered wheezing, bibasilar crackles Abd: soft, NT/ND, +BS, no rebound, no guarding, neg HSM : scrotal edema, with some skin sloughing noted EXT: 2 + bilateral upper/lower extremities edema, no ecchymosis, no clubbing, FROM, mild cyanosis noted at phalanges bilaterally lower extremities Neuro: intubated Psych: agitated at times Results Result Diagram: 07/08/16 0431 07/08/16 0431 Results 24 hrs Laboratory Tests Test 07/08/16 04:31 07/08/16 05:00 Anion Gap 14 Basophils # 0.0 Basophils % 0.0 Blood Morphology Comment Blood Urea Nitrogen 66 H Calcium Level 8.0 L Carbon Dioxide Level 31 Chloride Level 108 Creatinine 1.29 H Eosinophils # 0.1 Eosinophils % 0.5 Glucose Level 153 Hematocrit 42.1 Hemoglobin 12.8 L Lymphocytes # 1.5 Lymphocytes % 13.1 L Mean Corpuscular Hemoglobin 23.3 L Mean Corpuscular Hemoglobin Concent 30.5 L Mean Corpuscular Volume 76.5 L Mean Platelet Volume 10.9 H Monocytes # 1.0 H Monocytes % 8.6 Neutrophils # 9.1 H Neutrophils % 77.8 H Nucleated Red Blood Cells # 0.0 Nucleated Red Blood Cells % 0.0 Platelet Count 238 Potassium Level 5.0 Red Blood Count 5.50 Red Cell Distribution Width 20.2 H Sodium Level 148 H White Blood Count 11.7 H Arterial Blood HCO3 24.5 Arterial Blood Base Excess 1.6 Arterial Blood Oxygen Saturation 98.8 H Jaspal Test ACCEPTAB Arterial Blood Gas Puncture Site Right Radial Arterial Blood Carboxyhemoglobin 1.0 Arterial Blood Date Drawn 07/08/2016 9:25:00 AM Arterial Blood Methemoglobin 0.3 Arterial Blood pCO2 (Temp correct) 33.5 L Arterial Blood pH (Temp corrected) 7.482 H Arterial Blood pO2 (Temp corrected) 131.7 H Blood Gas A-a O2 Differential 42.8 H Blood Gas Actual Respiration Rate 17 Blood Gas Low PEEP Setting 5.0 Blood Gas Modality VENT - AC Blood Gas Notified Time 07/08/2016 9:34:00 AM Blood Gas Notified Whom TM Blood Gas Respiration Rate 16.0 Blood Gas Specimen Source Blood arterial Blood Gas Temperature 37.0 Blood Gas Tidal Volume 550.0 FiO2 30.0 Oxyhemoglobin Percent 97.5 Total Hemoglobin 14.7 Medications Medications Current Medications Ondansetron HCl (Zofran Inj) 4 mg Q6H PRN IV NAUSEA AND/OR VOMITING; Start at 12:00 Nitroglycerin (Nitroglycerin (Sl Tab) 0.4 Mg) 1 tab Q5M PRN SL CHEST PAIN; Start 06/26/16 at 12:00 Acetaminophen (Tylenol Supp) 650 mg Q4H PRN [place] PAIN LEVEL 1-3 OR FEVER Last administered on 07/01/16 19:57; Admin Dose 650 MG; Start 06/26/16 at 12:00 Morphine Sulfate (morphine) 2 mg Q4H PRN [place] PAIN LEVEL 7-10; Start 06/26/16 at 12:00 Lorazepam (Ativan) 1 mg Q2H PRN IV ANXIETY Last administered on 07/04/16 19:31 ; Admin Dose 1 MG; Start 06/26/16 at 12:00 Heparin Sodium (Porcine) 5000 unit 5,000 unit BID SC Last administered on 09:11; Admin Dose 5,000 UNIT; Start 06/26/16 at 21:00 Cefepime HCl (Maxipime 1gm/50 ml (Pmx)) 50 ml @ 100 mls/hr Q12 IVPB Last administered on 07/08/16 09:04; Admin Dose 100 MLS/HR; Start 06/26/16 at 15:00 IV Flush (NS 10 ml) 10 ml PRN PRN IV IV PROTOCOL; Start 06/27/16 at 16:30 Metoprolol Tartrate 25 mg 25 mg BID PO Last administered on 07/07/16 21:16; Admin Dose 25 MG; Start 06/28/16 at 21:00 Fentanyl/Dextrose (D5W) 100 ml @ 0 mls/hr TITRATE IV Last administered on 18:22; Admin Dose 5 MLS/HR; Start 06/29/16 at 15:30 Nystatin (Nystatin Susp) 5 ml TID PO Last administered on 07/08/16 09:04; Admin Dose 5 ML; Start 06/30/16 at 21:00 Hydralazine HCl (Apresoline) 10 mg Q8 PO Last administered on 07/08/16 05:29; Admin Dose 10 MG; Start 07/01/16 at 14:00 Pantoprazole (Protonix Iv) 40 mg BID@06,18 IV Last administered on 07/08/16 05: 29; Admin Dose 40 MG; Start 07/07/16 at 06:00 ROBERTO DAVISON Jul 08, 2016 11:33
--- NOTE | 2016-07-08 13:24 | CONS ---
Date/Time of Note Date/Time of Note DATE: 07/08/16 TIME: 13:21 Consult Date/Type/Reason Admit Date/Time Jun 26, 2016 at 11:39 Type of Consultation: Pulm Ordering Provider: ASAD DAS MD, [facility] Subjective On mechanical vent; no events. Objective Vital Signs Date Time Temp Pulse Resp B/P Pulse Ox O2 Delivery O2 Flow Rate FiO2 07/08/16 12:00 114 07/08/16 10:30 18 101/52 99 Mechanical Ventilator 07/08/16 08:00 30 07/08/16 08:00 100.3 Intake and Output 07/07/16 07/07/16 07/08/16 15:00 23:00 07:00 Intake Total 510 ml 581 ml 485.0 ml Output Total 275 ml 355 ml 550 ml Balance 235 ml 226 ml -65.0 ml NECK: Supple. ++ JVD or lymphadenopathy. CARDIAC: S1, S2, 4/6 systolic murmur and + S3 CHEST: Diminished air entry bilaterally. ABDOMEN: Soft, nontender. No guarding or rebound. EXTREMITIES: No cyanosis, clubbing, edema. Results/Medications Result Diagram: 07/08/16 0431 07/08/16 0431 Results 24 hrs Laboratory Tests Test 07/08/16 04:31 07/08/16 05:00 Anion Gap 14 Basophils # 0.0 Basophils % 0.0 Blood Morphology Comment Blood Urea Nitrogen 66 H Calcium Level 8.0 L Carbon Dioxide Level 31 Chloride Level 108 Creatinine 1.29 H Eosinophils # 0.1 Eosinophils % 0.5 Glucose Level 153 Hematocrit 42.1 Hemoglobin 12.8 L Lymphocytes # 1.5 Lymphocytes % 13.1 L Mean Corpuscular Hemoglobin 23.3 L Mean Corpuscular Hemoglobin Concent 30.5 L Mean Corpuscular Volume 76.5 L Mean Platelet Volume 10.9 H Monocytes # 1.0 H Monocytes % 8.6 Neutrophils # 9.1 H Neutrophils % 77.8 H Nucleated Red Blood Cells # 0.0 Nucleated Red Blood Cells % 0.0 Platelet Count 238 Potassium Level 5.0 Red Blood Count 5.50 Red Cell Distribution Width 20.2 H Sodium Level 148 H White Blood Count 11.7 H Arterial Blood HCO3 24.5 Arterial Blood Base Excess 1.6 Arterial Blood Oxygen Saturation 98.8 H Jaspal Test ACCEPTAB Arterial Blood Gas Puncture Site Right Radial Arterial Blood Carboxyhemoglobin 1.0 Arterial Blood Date Drawn 07/08/2016 9:25:00 AM Arterial Blood Methemoglobin 0.3 Arterial Blood pCO2 (Temp correct) 33.5 L Arterial Blood pH (Temp corrected) 7.482 H Arterial Blood pO2 (Temp corrected) 131.7 H Blood Gas A-a O2 Differential 42.8 H Blood Gas Actual Respiration Rate 17 Blood Gas Low PEEP Setting 5.0 Blood Gas Modality VENT - AC Blood Gas Notified Time 07/08/2016 9:34:00 AM Blood Gas Notified Whom TM Blood Gas Respiration Rate 16.0 Blood Gas Specimen Source Blood arterial Blood Gas Temperature 37.0 Blood Gas Tidal Volume 550.0 FiO2 30.0 Oxyhemoglobin Percent 97.5 Total Hemoglobin 14.7 Medications Current Medications Ondansetron HCl (Zofran Inj) 4 mg Q6H PRN IV NAUSEA AND/OR VOMITING; Start at 12:00 Nitroglycerin (Nitroglycerin (Sl Tab) 0.4 Mg) 1 tab Q5M PRN SL CHEST PAIN; Start 06/26/16 at 12:00 Acetaminophen (Tylenol Supp) 650 mg Q4H PRN [place] PAIN LEVEL 1-3 OR FEVER Last administered on 07/01/16 19:57; Admin Dose 650 MG; Start 06/26/16 at 12:00 Morphine Sulfate (morphine) 2 mg Q4H PRN IV PAIN LEVEL 7-10; Start 06/26/16 at 12:00 Lorazepam (Ativan) 1 mg Q2H PRN IV ANXIETY Last administered on 07/04/16 19:31 ; Admin Dose 1 MG; Start 06/26/16 at 12:00 Heparin Sodium (Porcine) 5000 unit 5,000 unit BID SC Last administered on 09:11; Admin Dose 5,000 UNIT; Start 06/26/16 at 21:00 Cefepime HCl (Maxipime 1gm/50 ml (Pmx)) 50 ml @ 100 mls/hr Q12 IVPB Last administered on 07/08/16 09:04; Admin Dose 100 MLS/HR; Start 06/26/16 at 15:00 IV Flush (NS 10 ml) 10 ml PRN PRN IV IV PROTOCOL; Start 06/27/16 at 16:30 Metoprolol Tartrate 25 mg 25 mg BID PO Last administered on 07/07/16 21:16; Admin Dose 25 MG; Start 06/28/16 at 21:00 Fentanyl/Dextrose (D5W) 100 ml @ 0 mls/hr TITRATE IV Last administered on 18:22; Admin Dose 5 MLS/HR; Start 06/29/16 at 15:30 Nystatin (Nystatin Susp) 5 ml TID PO Last administered on 07/08/16 09:04; Admin Dose 5 ML; Start 06/30/16 at 21:00 Hydralazine HCl (Apresoline) 10 mg Q8 PO Last administered on 07/08/16 05:29; Admin Dose 10 MG; Start 07/01/16 at 14:00 Pantoprazole (Protonix Iv) 40 mg BID@06,18 IV Last administered on 07/08/16 05: 29; Admin Dose 40 MG; Start 07/07/16 at 06:00 Assessment/Plan Additional Assessment/Plan IMPRESSION: 1. Respiratory Failure/Vent Dependence 2. 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 Bacterial endocarditis with valvular heart disease. 4. History of prolonged and recent intravenous drug abuse. 5. History of pulmonary embolus. 6. Renal insufficiency RECS: 1. Failed CPAP trial 2. Would consider trial of afterload reduction with nipride gtt 3. Broad-spectrum antibiotics. 4. DVT and GI prophylaxis. 5. Candidacy for AVR/MVR discussed with CT surgery 35 min CC time TAY BONNER MD Jul 08, 2016 13:24
--- NOTE | 2016-07-08 13:58 | CONS ---
Date/Time of Note Date/Time of Note DATE: 07/08/16 TIME: 13:57 Consult Date/Type/Reason Admit Date/Time Jun 26, 2016 at 11:39 Type of Consultation: id Ordering Provider: ASAD DAS MD, [facility] Subjective no events, intubated, sedated with Fentanyl gtt, no fevers,nad Objective Vital Signs Date Time Temp Pulse Resp B/P Pulse Ox O2 Delivery O2 Flow Rate FiO2 07/08/16 12:00 114 07/08/16 10:30 18 101/52 99 Mechanical Ventilator 07/08/16 08:00 30 07/08/16 08:00 100.3 Intake and Output 07/07/16 07/07/16 07/08/16 15:00 23:00 07:00 Intake Total 510 ml 581 ml 485.0 ml Output Total 275 ml 355 ml 550 ml Balance 235 ml 226 ml -65.0 ml Results/Medications Result Diagram: 07/08/16 0431 07/08/16 0431 Results 24 hrs Laboratory Tests Test 07/08/16 04:31 07/08/16 05:00 Anion Gap 14 Basophils # 0.0 Basophils % 0.0 Blood Morphology Comment Blood Urea Nitrogen 66 H Calcium Level 8.0 L Carbon Dioxide Level 31 Chloride Level 108 Creatinine 1.29 H Eosinophils # 0.1 Eosinophils % 0.5 Glucose Level 153 Hematocrit 42.1 Hemoglobin 12.8 L Lymphocytes # 1.5 Lymphocytes % 13.1 L Mean Corpuscular Hemoglobin 23.3 L Mean Corpuscular Hemoglobin Concent 30.5 L Mean Corpuscular Volume 76.5 L Mean Platelet Volume 10.9 H Monocytes # 1.0 H Monocytes % 8.6 Neutrophils # 9.1 H Neutrophils % 77.8 H Nucleated Red Blood Cells # 0.0 Nucleated Red Blood Cells % 0.0 Platelet Count 238 Potassium Level 5.0 Red Blood Count 5.50 Red Cell Distribution Width 20.2 H Sodium Level 148 H White Blood Count 11.7 H Arterial Blood HCO3 24.5 Arterial Blood Base Excess 1.6 Arterial Blood Oxygen Saturation 98.8 H Jaspal Test ACCEPTAB Arterial Blood Gas Puncture Site Right Radial Arterial Blood Carboxyhemoglobin 1.0 Arterial Blood Date Drawn 07/08/2016 9:25:00 AM Arterial Blood Methemoglobin 0.3 Arterial Blood pCO2 (Temp correct) 33.5 L Arterial Blood pH (Temp corrected) 7.482 H Arterial Blood pO2 (Temp corrected) 131.7 H Blood Gas A-a O2 Differential 42.8 H Blood Gas Actual Respiration Rate 17 Blood Gas Low PEEP Setting 5.0 Blood Gas Modality VENT - AC Blood Gas Notified Time 07/08/2016 9:34:00 AM Blood Gas Notified Whom TM Blood Gas Respiration Rate 16.0 Blood Gas Specimen Source Blood arterial Blood Gas Temperature 37.0 Blood Gas Tidal Volume 550.0 FiO2 30.0 Oxyhemoglobin Percent 97.5 Total Hemoglobin 14.7 Medications Current Medications Ondansetron HCl (Zofran Inj) 4 mg Q6H PRN IV NAUSEA AND/OR VOMITING; Start at 12:00 Nitroglycerin (Nitroglycerin (Sl Tab) 0.4 Mg) 1 tab Q5M PRN SL CHEST PAIN; Start 06/26/16 at 12:00 Acetaminophen (Tylenol Supp) 650 mg Q4H PRN [place] PAIN LEVEL 1-3 OR FEVER Last administered on 07/01/16 19:57; Admin Dose 650 MG; Start 06/26/16 at 12:00 Morphine Sulfate (morphine) 2 mg Q4H PRN IV PAIN LEVEL 7-10; Start 06/26/16 at 12:00 Lorazepam (Ativan) 1 mg Q2H PRN IV ANXIETY Last administered on 07/04/16 19:31 ; Admin Dose 1 MG; Start 06/26/16 at 12:00 Heparin Sodium (Porcine) 5000 unit 5,000 unit BID SC Last administered on 09:11; Admin Dose 5,000 UNIT; Start 06/26/16 at 21:00 Cefepime HCl (Maxipime 1gm/50 ml (Pmx)) 50 ml @ 100 mls/hr Q12 IVPB Last administered on 07/08/16 09:04; Admin Dose 100 MLS/HR; Start 06/26/16 at 15:00 IV Flush (NS 10 ml) 10 ml PRN PRN IV IV PROTOCOL; Start 06/27/16 at 16:30 Metoprolol Tartrate 25 mg 25 mg BID PO Last administered on 07/07/16 21:16; Admin Dose 25 MG; Start 06/28/16 at 21:00 Fentanyl/Dextrose (D5W) 100 ml @ 0 mls/hr TITRATE IV Last administered on 18:22; Admin Dose 5 MLS/HR; Start 06/29/16 at 15:30 Nystatin (Nystatin Susp) 5 ml TID PO Last administered on 07/08/16 13:37; Admin Dose 5 ML; Start 06/30/16 at 21:00 Hydralazine HCl (Apresoline) 10 mg Q8 PO Last administered on 07/08/16 05:29; Admin Dose 10 MG; Start 07/01/16 at 14:00 Pantoprazole (Protonix Iv) 40 mg BID@,18 IV Last administered on 07/08/16 05: 29; Admin Dose 40 MG; Start 07/07/16 at 06:00 Assessment/Plan Chief Complaint/Hosp Course INDWELLINGS: Endotracheal tube, NG tube, Merino catheter, left upper extremity PICC line placed on June 27. Abx: Cefepime PHYSICAL EXAMINATION: GENERAL: This is an ill-appearing, middle-aged white man who is lying comfortably in bed, the pt is sedated. HEENT: Head atraumatic, normocephalic. Sclerae anicteric. Buccal mucosa dry. NECK: Supple. CHEST: Rise symmetrical. Breath sounds diminished to bases. HEART: S1, S2. ABDOMEN: Soft, bowel tones present. EXTREMITIES: Bilateral edema. ASSESSMENT: 1. Acute respiratory failure secondary to congestive heart failure exacerbation and possible pneumonia. 2. S/p acute renal failure . 3. Bacterial endocarditis with persistent aortic and mitral valve vegetations. 4. History of alpha hemolytic strep septicemia in March 2016, completed 6 weeks' treatment. 5. History of pulmonary emboli. 6. History of IV drug abuse. PLAN: The patient remains hemodynamically stable. Cultures had been negative. Continue present care, weaning trials as per pulmonary team, card/CTS rec-s. DW staff Problems: ARYMOND HER NP Jul 08, 2016 13:58
--- NOTE | 2016-07-08 14:55 | PN ---
Date/Time of Note Date/Time of Note DATE: 07/08/16 TIME: 14:54 Assessment/Plan Lines/Catheters IV Catheter Type (from Nrs): PICC Line Merino in Place (from Nrs): Yes Assessment/Plan Chief Complaint/Hosp Course IMPRESSION: 1. Endocarditis involving aortic and mitral valve. 2. Aortic regurgitation. 3. Mitral regurgitation. 4. Cardiomyopathy with diminished ejection fraction. 5. Renal failure. 6. History of drug use. 7. Elevation of the transaminases. 8. Coagulopathy. RECOMMENDATIONS: This patient is not a candidate to undergo surgery at the present time; too high risk for surgical repair. Please continue antibiotics. Pt DNR possible trach Discussed with the nursing staff. and the mother continue ABX Problems: Subjective 24 Hr Interval Summary Constitutional: improved Pain Control: mild Exam/Review of Systems Vital Signs Vitals Vital Signs Date Time Temp Pulse Resp B/P Pulse Ox O2 Delivery O2 Flow Rate FiO2 07/08/16 12:00 114 07/08/16 10:30 18 101/52 99 Mechanical Ventilator 07/08/16 08:00 30 07/08/16 08:00 100.3 Intake and Output 07/07/16 07/07/16 07/08/16 15:00 23:00 07:00 Intake Total 510 ml 581 ml 485.0 ml Output Total 275 ml 355 ml 550 ml Balance 235 ml 226 ml -65.0 ml Exam ENMT: mucosa pink and moist, nl external ears & nose, nl lips & teeth, nl nasal mucosa & septum Neck: non-tender, supple Respiratory: clear to auscultation, normal air movement Cardiovascular: nl pulses, regular rate and rhythm Gastrointestinal: nl liver, spleen, non-tender, soft Results Result Diagram: 07/08/161 07/08/16430 KARI ZAMAN MD Jul 08, 2016 14:55
[2016-07-08] MEDS: BUMETANIDE 2 MG in DEXTROSE 5% 17 ML IV SCH (17:55)
[2016-07-08] MEDS ORDERED: BUMETANIDE 1 MG INJ IV SCH (18:00)
[2016-07-08] MEDS: FENTAnyl 1,000 MCG in DEXTROSE 5% 80 ML IV SCH (23:12)
[2016-07-09] VITALS (60 sets, daily range): BP systolic 93–113; BP diastolic 48–66; PULSE 88–111; RESP 13–18
[2016-07-09] MEDS: PANTOPRAZOLE 40 MG INJ IV SCH ×2 (06:04→17:50)
[2016-07-09] MEDS: BUMETANIDE 2 MG in DEXTROSE 5% 17 ML IV SCH ×3 (06:04→22:48)
[2016-07-09 08:30] LABS: EOSINOPHILS % 0.4 % (0.0-7.0); HEMOGLOBIN 12.6 g/dl (14.0-18.0); LYMPHOCYTES # 1.5 10^3/ul (0.8-2.9); LYMPHOCYTES % 12.7 % (15.0-51.0); MEAN CORPUSCULAR HEMOGLOBIN 23.3 pg (29.0-33.0); MEAN CORPUSCULAR HGB CONC 30.7 g/dl (32.0-37.0); MEAN PLATELET VOLUME 10.5 fl (7.4-10.4); MONOCYTE # 1.1 10^3/ul (0.3-0.9); NEUTROPHIL # 9.1 10^3/ul (1.6-7.5); NEUTROPHILS % 77.9 % (39.0-77.0); PLATELET COUNT 207 10^3/UL (140-440); RED CELL DISTRIBUTION WIDTH 20.6 % (11.5-14.5); UNCORRECTED WBC 11.7 10^3/ul (4.8-10.8); WHITE BLOOD COUNT 11.7 10^3/ul (4.8-10.8)
[2016-07-09 08:31] LABS: CONDITION 1; LH ANALYZER COMMENTS 1; SUSPECT 1
[2016-07-09 08:44] LABS: ALBUMIN 2.4 g/dl (3.3-4.9)
[2016-07-09 08:45] LABS: POTASSIUM 4.4 mmol/L (3.5-5.1)
[2016-07-09 08:47] LABS: ALBUMIN/GLOBULIN RATIO 0.82; BILIRUBIN,INDIRECT 0.4 mg/dl (0-1.1); BILIRUBIN,TOTAL 0.4 mg/dl (0.2-1.3); CREATININE 1.18 mg/dl (0.61-1.24); TOTAL PROTEIN 5.3 g/dl (6.1-8.1)
[2016-07-09] MEDS: CEFEPIME 1GM/50 ML (PMX) 50 ML IVPB SCH ×2 (08:58→20:29)
[2016-07-09] MEDS: HEPARIN 5,000 UNIT/0.5 ML SYG SC SCH (08:59)
[2016-07-09] MEDS: METOPROLOL 25 MG TAB PO SCH ×2 (08:59→21:30)
[2016-07-09] MEDS: NYSTATIN SUSP 5 ML CUP PO SCH ×3 (08:59→20:29)
--- NOTE | 2016-07-09 09:35 | PN ---
Date/Time of Note Date/Time of Note DATE: 07/09/16 TIME: 09:15 Assessment/Plan VTE Prophylaxis VTE Prophylaxis Intervention: heparin Lines/Catheters IV Catheter Type (from Nrs): PICC Line Central line still needed: Yes Urinary Cath still in place: Yes Reason Cath still needed: other (indicate) Assessment/Plan Assessment/Plan 36 yo unfortunate male with a past medical history of Bacterial Endocarditis finished 6 week course of IV antibiotics, Drug abuse, Nicotine abuse, Right popliteal thrombosis, PE (on Eliquis prior to admission), Microcytic anemia, CHF - diastolic, who came for worsening shortness of breath. 1. Shortness of breath - hypoxemic respiratory failure - multifactorial - heart failure acute on chronic - Vent dependent - intubated. Has not been able to pass CPAP trials the last few days. - f/u pulm recs, CV as well - for possible CPAP trial again tomorrow - as well, possible trach placement has been discussed as well with family and pulm team - f/u on this. 2. Sepsis - severe 2/2 to pneumonia (HCAP) + endocarditis - tachycardia/ leukocytosis - per ID, continue IV cefepime (vanco d/c'ed) - f/u respiratory cultures, - appreciate ID recs 3. CHF - diastolic dysfunction acute on chronic - EF recent shows 40%, D shaped left ventricle - f/u CV rec's - f/u renal rec's, monitor UO 4. Hypernatremia - appreciate nephrology consult - f/u renal rec's, free H2O 5. BESSIE - acute on chronic - 2/2 #2 - improving - monitor, f/u renal rec's. per discussion with them, now on bumex BID now, and have increased dose of this today, monitor UO and swelling. 6. Transaminitis - 2/2 to sepsis, or possible atypical pneumonia, monitor trend - improving 7. PE - will resume full dose anticoagulation with lovenox 8. Right popliteal thrombus - Lovenox resumed / no thrombus on recent LE USS 9. Microcytic anemia - monitor H/H, transfuse if hgb < 8 g/dL. Pt has been given IV iron as well. 10. GI ppx - protonix drip for now, f/u GI rec's 11. DVT ppx - heparin dispo - f/u recs, appreciate palliative care consult - will monitor functional status - overall prognosis is poor - DNR/DNI - family agrees to continue current care, considering trach placement as well - plan would be long term care social worker abx tx and possible valve replacement surgery in future if more medically stable then critical care time today = 40 min Subjective 24 Hr Interval Summary Free Text/Dictation Patient seen and examined. Nursing reports no acute overnight events. Remains intubated on fentanyl drip Exam/Review of Systems Vital Signs Vitals Vital Signs Date Time Temp Pulse Resp B/P Pulse Ox O2 Delivery O2 Flow Rate FiO2 07/09/16 09:00 105 16 104/54 96 Mechanical Ventilator 07/09/16 07:58 30 07/09/16 04:00 98.4 Intake and Output 07/08/16 07/08/16 07/09/16 15:00 23:00 07:00 Intake Total 682.5 ml 777.5 ml 675 ml Output Total 560 ml 660 ml 625 ml Balance 122.5 ml 117.5 ml 50 ml Exam Constitutional: other (will open eyes to name), No alert Psych: other (unable to assess) Head: atraumatic, normocephalic Eyes: PERRL, No icteric ENMT: intubated Respiratory: diminished breath sounds, No labored breathing, No wheezing Cardiovascular: murmurs/extra sounds (3/6 systolic), No regular rate and rhythm (tachycardia) Gastrointestinal: bowel sounds, non-tender, other (NGT feeds), soft Genitourinary - Male: other (mild scrotal swelling) Extremities: pitting pedal edema (2-3+ bilaterally) Neurological: other (sedated) Skin: other (multiple tattos) Results Result Diagram: 07/09/16 0800 07/09/16 0800 Results 24 hrs Laboratory Tests Test 07/09/16 08:00 Alanine Aminotransferase (ALT/SGPT) 57 Albumin 2.4 L Albumin/Globulin Ratio 0.82 Alkaline Phosphatase 86 Anion Gap 14 Aspartate Amino Transf (AST/SGOT) 69 H Basophils # 0.0 Basophils % 0.0 Blood Morphology Comment Blood Urea Nitrogen 67 H Calcium Level 8.0 L Carbon Dioxide Level 32 H Chloride Level 109 Creatinine 1.18 Direct Bilirubin 0.00 Eosinophils # 0.0 Eosinophils % 0.4 Globulin 2.90 Glucose Level 116 Hematocrit 41.0 L Hemoglobin 12.6 L Indirect Bilirubin 0.4 Lymphocytes # 1.5 Lymphocytes % 12.7 L Mean Corpuscular Hemoglobin 23.3 L Mean Corpuscular Hemoglobin Concent 30.7 L Mean Corpuscular Volume 76.0 L Mean Platelet Volume 10.5 H Monocytes # 1.1 H Monocytes % 9.0 Neutrophils # 9.1 H Neutrophils % 77.9 H Nucleated Red Blood Cells # 0.0 Nucleated Red Blood Cells % 0.0 Platelet Count 207 Potassium Level 4.4 Red Blood Count 5.40 Red Cell Distribution Width 20.6 H Sodium Level 151 H Total Bilirubin 0.4 Total Protein 5.3 L White Blood Count 11.7 H Medications Medications Current Medications Ondansetron HCl (Zofran Inj) 4 mg Q6H PRN IV NAUSEA AND/OR VOMITING; Start at 12:00 Nitroglycerin (Nitroglycerin (Sl Tab) 0.4 Mg) 1 tab Q5M PRN SL CHEST PAIN; Start 06/26/16 at 12:00 Acetaminophen (Tylenol Supp) 650 mg Q4H PRN [place] PAIN LEVEL 1-3 OR FEVER Last administered on 07/01/16 19:57; Admin Dose 650 MG; Start 06/26/16 at 12:00 Morphine Sulfate (morphine) 2 mg Q4H PRN IV PAIN LEVEL 7-10; Start 06/26/16 at 12:00 Lorazepam (Ativan) 1 mg Q2H PRN IV ANXIETY Last administered on 07/04/16 19:31 ; Admin Dose 1 MG; Start 06/26/16 at 12:00 Heparin Sodium (Porcine) 5000 unit 5,000 unit BID SC Last administered on 08:59; Admin Dose 5,000 UNIT; Start 06/26/16 at 21:00 Cefepime HCl (Maxipime 1gm/50 ml (Pmx)) 50 ml @ 100 mls/hr Q12 IVPB Last administered on 07/09/16 08:58; Admin Dose 100 MLS/HR; Start 06/26/16 at 15:00 IV Flush (NS 10 ml) 10 ml PRN PRN IV IV PROTOCOL; Start 06/27/16 at 16:30 Metoprolol Tartrate 25 mg 25 mg BID PO Last administered on 07/08/16 21:34; Admin Dose 25 MG; Start 06/28/16 at 21:00 Fentanyl/Dextrose (D5W) 100 ml @ 0 mls/hr TITRATE IV Last administered on 23:12; Admin Dose 5 MLS/HR; Start 06/29/16 at 15:30 Nystatin (Nystatin Susp) 5 ml TID PO Last administered on 07/09/16 08:59; Admin Dose 5 ML; Start 06/30/16 at 21:00 Hydralazine HCl (Apresoline) 10 mg Q8 PO Last administered on 07/08/16 05:29; Admin Dose 10 MG; Start 07/01/16 at 14:00 Pantoprazole (Protonix Iv) 40 mg BID@06,18 IV Last administered on 07/09/16 06: 04; Admin Dose 40 MG; Start 07/07/16 at 06:00 Procedures Procedures PROCEDURE: Chest 1 views. CLINICAL INDICATION: Shortness of breath, on ventilator. TECHNIQUE: AP views of the chest were obtained. COMPARISON: July 07, 2016 FINDINGS: The heart is large. Endotracheal and nasogastric tubes are stable. Retrocardiac opacity is unchanged. Osseous structures are intact. IMPRESSION: Cardiomegaly . Stable retrocardiac opacity that may reflect left lower lobe atelectasis or infiltrate combined with small pleural effusion. AIYANA GIANG Jul 09, 2016 09:24
--- NOTE | 2016-07-09 10:42 | CONS ---
Date/Time of Note Date/Time of Note DATE: 07/09/16 TIME: 10:38 Assessment/Plan Assessment/Plan Chief Complaint/Hosp Course IMPRESSION: 1. Congestive heart failure exacerbation, systolic, acute on chronic with last known EF approximately 40% by echo May 2016. 2. Aortic regurgitation, moderate to severe with possible ongoing vegetation by most recent echo May 2016. 3. Mitral regurgitation, moderate to severe. 4. History of recent endocarditis status post 6-week course of antibiotics. 5. Cardiomyopathy with decreased left ventricular ejection fraction last approximately 40% by echo 06/14/2016. 6. Coagulopathy. 7. Renal failure-slowly improving 8. Hypokalemia 9. Increased LFTs. 10. Increased BNP. 11. Leukocytosis. 12. Mild anemia. 13.Resp failure s/p intubation 14. 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 -Low dose BB/hydralazine as tolerated only -Continue lovenox -Per CT surgery not a candidate for valve replacement at this time due to high risk -F/U blood cultures -Continue abx's -Family deciding about direction of care currently with ongoing discussion -Possible trach Problems: Consultation Date/Type/Reason Admit Date/Time Jun 26, 2016 at 11:39 Initial Consult Date 06/27/2016 Type of Consultation: Cardiology Reason for Consultation CHF/AR/MR Referring Provider: ASAD DAS MD, [facility] Exam/Review of Systems Vital Signs Vitals Vital Signs Date Time Temp Pulse Resp B/P Pulse Ox O2 Delivery O2 Flow Rate FiO2 07/09/16 10:01 103 17 98 30 07/09/16 09:00 104/54 Mechanical Ventilator 07/09/16 04:00 98.4 Intake and Output 07/08/16 07/08/16 07/09/16 15:00 23:00 07:00 Intake Total 682.5 ml 777.5 ml 675 ml Output Total 560 ml 660 ml 625 ml Balance 122.5 ml 117.5 ml 50 ml Exam Review of Systems: CONSTITUTIONAL: No fevers, chills. PULMONARY: intubated CARDIOVASCULAR: No obvious chest pain/palpitations GASTROINTESTINAL: No nausea/vomiting. GENITOURINARY: No hematuria/dysuria. MUSCULOSKELETAL: No obvious myagias/arthalgias. PSYCHIATRIC: No documented depression. NEUROLOGIC: Sedated Constitutional: other (sedated) Psych: no complaints Head: normocephalic ENMT: mucosa pink and moist Neck: supple Respiratory: other (upper airwayrhonchi) Cardiovascular: regular rate and rhythm Gastrointestinal: non-tender, soft Musculoskeletal: muscle tone (normal) Extremities: pitting pedal edema (BIlateral) Neurological: other (sedated) Results Result Diagram: 07/09/16 0800 07/09/16 0800 Results 24 hrs Laboratory Tests Test 07/09/16 08:00 Alanine Aminotransferase (ALT/SGPT) 57 Albumin 2.4 L Albumin/Globulin Ratio 0.82 Alkaline Phosphatase 86 Anion Gap 14 Aspartate Amino Transf (AST/SGOT) 69 H Basophils # 0.0 Basophils % 0.0 Blood Morphology Comment Blood Urea Nitrogen 67 H Calcium Level 8.0 L Carbon Dioxide Level 32 H Chloride Level 109 Creatinine 1.18 Direct Bilirubin 0.00 Eosinophils # 0.0 Eosinophils % 0.4 Globulin 2.90 Glucose Level 116 Hematocrit 41.0 L Hemoglobin 12.6 L Indirect Bilirubin 0.4 Lymphocytes # 1.5 Lymphocytes % 12.7 L Mean Corpuscular Hemoglobin 23.3 L Mean Corpuscular Hemoglobin Concent 30.7 L Mean Corpuscular Volume 76.0 L Mean Platelet Volume 10.5 H Monocytes # 1.1 H Monocytes % 9.0 Neutrophils # 9.1 H Neutrophils % 77.9 H Nucleated Red Blood Cells # 0.0 Nucleated Red Blood Cells % 0.0 Platelet Count 207 Potassium Level 4.4 Red Blood Count 5.40 Red Cell Distribution Width 20.6 H Sodium Level 151 H Total Bilirubin 0.4 Total Protein 5.3 L White Blood Count 11.7 H Medications Medications Current Medications Ondansetron HCl (Zofran Inj) 4 mg Q6H PRN IV NAUSEA AND/OR VOMITING; Start at 12:00 Nitroglycerin (Nitroglycerin (Sl Tab) 0.4 Mg) 1 tab Q5M PRN SL CHEST PAIN; Start 06/26/16 at 12:00 Acetaminophen (Tylenol Supp) 650 mg Q4H PRN [place] PAIN LEVEL 1-3 OR FEVER Last administered on 07/01/16t 19:57; Admin Dose 650 MG; Start 06/26/16 at 12:00 Morphine Sulfate (morphine) 2 mg Q4H PRN IV PAIN LEVEL 7-10; Start 06/26/16 at 12:00 Lorazepam 1 mg 1 mg Q2H PRN IV ANXIETY Last administered on 07/04/16 19:31; Admin Dose 1 MG; Start 06/26/16 at 12:00 Cefepime HCl (Maxipime 1gm/50 ml (Pmx)) 50 ml @ 100 mls/hr Q12 IVPB Last administered on 07/09/16 08:58; Admin Dose 100 MLS/HR; Start 06/26/16 at 15:00 IV Flush (NS 10 ml) 10 ml PRN PRN IV IV PROTOCOL; Start 06/27/16 at 16:30 Metoprolol Tartrate 25 mg 25 mg BID PO Last administered on 07/08/16 21:34; Admin Dose 25 MG; Start 06/28/16 at 21:00 Fentanyl/Dextrose (D5W) 100 ml @ 0 mls/hr TITRATE IV Last administered on 23:12; Admin Dose 5 MLS/HR; Start 06/29/16 at 15:30 Nystatin (Nystatin Susp) 5 ml TID PO Last administered on 07/09/16 08:59; Admin Dose 5 ML; Start 06/30/16 at 21:00 Hydralazine HCl (Apresoline) 10 mg Q8 PO Last administered on 07/08/16 05:29; Admin Dose 10 MG; Start 07/01/16 at 14:00 Pantoprazole (Protonix Iv) 40 mg BID@06,18 IV Last administered on 07/09/16 06: 04; Admin Dose 40 MG; Start 07/07/16 at 06:00 Enoxaparin Sodium (Lovenox) 90 mg Q12 SC ; Start 07/09/16 at 21:00 SEVERO STUBBS Jul 09, 2016 10:42
--- NOTE | 2016-07-09 13:01 | CONS ---
Date/Time of Note Date/Time of Note DATE: 07/09/16 TIME: 12:57 Assessment/Plan Assessment/Plan Chief Complaint/Hosp Course 1. acute renal failure superimposed on CKD . renal function is decreased , some component of cardiorenal syndrome . His urine output has been lower and he has been in positive fluid balance . Will increase Bumex dose . 2. 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 CT surgery says that he is not a surgical candidate at this time . 3. CHF 4. hepatitis C with elevated liver enzymes 5. respiratory failure , ventilator dependent , weening from ventilator is being attempted . 6. hypokalemia , potassium is being corrected 7. hypernatremia , increase water flushes in G tube . Problems: Consultation Date/Type/Reason Admit Date/Time Jun 26, 2016 at 11:39 Type of Consultation: Cardiology Referring Provider: ASAD DAS MD, [facility] 24 HR Interval Summary Free Text/Dictation He is in the ICU sedated , intubated , on a ventilator . Subjective hx not possible: pt non-verbal Exam/Review of Systems Vital Signs Vitals Vital Signs Date Time Temp Pulse Resp B/P Pulse Ox O2 Delivery O2 Flow Rate FiO2 07/09/16 12:30 103 16 104/63 97 07/09/16 12:00 100.0 Mechanical Ventilator 07/09/16 12:00 30 Intake and Output 07/08/16 07/08/16 07/09/16 15:00 23:00 07:00 Intake Total 682.5 ml 777.5 ml 675 ml Output Total 560 ml 660 ml 625 ml Balance 122.5 ml 117.5 ml 50 ml Exam Constitutional: non-verbal Respiratory: clear to auscultation, diminished breath sounds Cardiovascular: murmurs/extra sounds, regular rate and rhythm Gastrointestinal: soft Extremities: edema Results Result Diagram: 07/09/16 0800 07/09/16 0800 Results 24 hrs Laboratory Tests Test 07/09/16 08:00 Alanine Aminotransferase (ALT/SGPT) 57 Albumin 2.4 L Albumin/Globulin Ratio 0.82 Alkaline Phosphatase 86 Anion Gap 14 Aspartate Amino Transf (AST/SGOT) 69 H Basophils # 0.0 Basophils % 0.0 Blood Morphology Comment Blood Urea Nitrogen 67 H Calcium Level 8.0 L Carbon Dioxide Level 32 H Chloride Level 109 Creatinine 1.18 Direct Bilirubin 0.00 Eosinophils # 0.0 Eosinophils % 0.4 Globulin 2.90 Glucose Level 116 Hematocrit 41.0 L Hemoglobin 12.6 L Indirect Bilirubin 0.4 Lymphocytes # 1.5 Lymphocytes % 12.7 L Mean Corpuscular Hemoglobin 23.3 L Mean Corpuscular Hemoglobin Concent 30.7 L Mean Corpuscular Volume 76.0 L Mean Platelet Volume 10.5 H Monocytes # 1.1 H Monocytes % 9.0 Neutrophils # 9.1 H Neutrophils % 77.9 H Nucleated Red Blood Cells # 0.0 Nucleated Red Blood Cells % 0.0 Platelet Count 207 Potassium Level 4.4 Red Blood Count 5.40 Red Cell Distribution Width 20.6 H Sodium Level 151 H Total Bilirubin 0.4 Total Protein 5.3 L White Blood Count 11.7 H Medications Medications Current Medications Ondansetron HCl (Zofran Inj) 4 mg Q6H PRN IV NAUSEA AND/OR VOMITING; Start at 12:00 Nitroglycerin (Nitroglycerin (Sl Tab) 0.4 Mg) 1 tab Q5M PRN SL CHEST PAIN; Start 06/26/16 at 12:00 Acetaminophen (Tylenol Supp) 650 mg Q4H PRN [place] PAIN LEVEL 1-3 OR FEVER Last administered on 07/01/16 19:57; Admin Dose 650 MG; Start 06/26/16 at 12:00 Morphine Sulfate (morphine) 2 mg Q4H PRN IV PAIN LEVEL 7-10; Start 06/26/16 at 12:00 Lorazepam 1 mg 1 mg Q2H PRN IV ANXIETY Last administered on 07/04/16 19:31; Admin Dose 1 MG; Start 06/26/16 at 12:00 Cefepime HCl (Maxipime 1gm/50 ml (Pmx)) 50 ml @ 100 mls/hr Q12 IVPB Last administered on 07/09/16 08:58; Admin Dose 100 MLS/HR; Start 06/26/16 at 15:00 IV Flush (NS 10 ml) 10 ml PRN PRN IV IV PROTOCOL; Start 06/27/16 at 16:30 Metoprolol Tartrate 25 mg 25 mg BID PO Last administered on 07/08/16 21:34; Admin Dose 25 MG; Start 06/28/16 at 21:00 Fentanyl/Dextrose (D5W) 100 ml @ 0 mls/hr TITRATE IV Last administered on 23:12; Admin Dose 5 MLS/HR; Start 06/29/16 at 15:30 Nystatin (Nystatin Susp) 5 ml TID PO Last administered on 07/09/16 08:59; Admin Dose 5 ML; Start 06/30/16 at 21:00 Hydralazine HCl (Apresoline) 10 mg Q8 PO Last administered on 07/08/16 05:29; Admin Dose 10 MG; Start 07/01/16 at 14:00 Pantoprazole (Protonix Iv) 40 mg BID@06,18 IV Last administered on 07/09/16 06: 04; Admin Dose 40 MG; Start 07/07/16 at 06:00 Enoxaparin Sodium (Lovenox) 90 mg Q12 SC ; Start 07/09/16 at 21:00 CRESENCIO CASTILLO MD Jul 09, 2016 13:01
--- NOTE | 2016-07-09 13:05 | PN ---
DATE: 07/09/2016 SUBJECTIVE: No changes overnight, no fevers. The patient is lying comfortably in bed. VITAL SIGNS: Temperature 98.4, pulse 103, respirations 17, blood pressure 104/54, saturation 98 on 30 FIO2. LABORATORY: WBC 11.7, H and H 12.6 and 41, platelets 207, neutrophils 77.9. BUN 67, creatinine 1.1 8. INDWELLINGS: Endotracheal tube, orogastric tube, Merino catheter and PICC line placed on 06/27/2016. ANTIMICROBIALS: The patient remains on Cefepime. PHYSICAL EXAMINATION: GENERAL: This is an ill-appearing, middle-aged white man who is lying comfortably in bed. HEENT: Head atraumatic, normocephalic. Sclerae anicteric. Buccal mucosa dry. NECK: Supple, trachea midline. CHEST: Rise symmetrical. Breath sounds diminished at the bases. HEART: S1, S2. ABDOMEN: Soft, bowel tones present. EXTREMITIES: Without cyanosis. Bilateral edema. ASSESSMENT: 1. Acute respiratory failure secondary to pulmonary edema, possible aspiration pneumonia versus com munity-acquired pneumonia, patient was treated with Levaquin, currently on cefepime. 2. Aortic and mitral valve endocarditis. 3. Cardiomyopathy. 4. Status post alpha hemolytic strep septicemia in March 2016. 5. History of pulmonary emboli. 6. Severe cardiomyopathy. 7. History of IV drug abuse. PLAN: The patient remains stable, failed multiple weaning trials. He is being followed by multiple consultants, not a surgical candidate per cardiothoracic surgery note. Continue present care. Dictated By: RAYMOND HER [employer] CONTROLS TECHNICIAN for JULIO CESAR DURON/BRANDO Conf#: [id number] DID#: [id number]
--- NOTE | 2016-07-09 13:36 | CONS ---
Date/Time of Note Date/Time of Note DATE: 07/09/16 TIME: 13:34 Consult Date/Type/Reason Admit Date/Time Jun 26, 2016 at 11:39 Type of Consultation: pulmonary Ordering Provider: ASAD DAS MD, [facility] Subjective Remains mostly somnolent on mechanical ventilation Moderate secretions Currently hemodynamically stable Objective Vital Signs Date Time Temp Pulse Resp B/P Pulse Ox O2 Delivery O2 Flow Rate FiO2 07/09/16 12:30 103 16 104/63 97 07/09/16 12:00 100.0 Mechanical Ventilator 07/09/16 12:00 30 Intake and Output 07/08/16 07/08/16 07/09/16 15:00 23:00 07:00 Intake Total 682.5 ml 777.5 ml 675 ml Output Total 560 ml 660 ml 625 ml Balance 122.5 ml 117.5 ml 50 ml PHYSICAL EXAMINATION GENERAL: Chronically ill-appearing gentleman comfortable at rest on mechanical ventilation VITAL SIGNS: see below. HEENT: Pupils equal, round, and reactive to light. Dry mucous membranes CARDIAC: S1, S2, CHEST: Diminished air entry bilaterally. ABDOMEN: Mildly distended. Bowel sounds present EXTREMITIES: No cyanosis, clubbing edema +1 NEUROLOGIC: Generalized weakness unable to assess Results/Medications Result Diagram: 07/09/16 0800 07/09/16 0800 Results 24 hrs Laboratory Tests Test 07/09/16 08:00 Alanine Aminotransferase (ALT/SGPT) 57 Albumin 2.4 L Albumin/Globulin Ratio 0.82 Alkaline Phosphatase 86 Anion Gap 14 Aspartate Amino Transf (AST/SGOT) 69 H Basophils # 0.0 Basophils % 0.0 Blood Morphology Comment Blood Urea Nitrogen 67 H Calcium Level 8.0 L Carbon Dioxide Level 32 H Chloride Level 109 Creatinine 1.18 Direct Bilirubin 0.00 Eosinophils # 0.0 Eosinophils % 0.4 Globulin 2.90 Glucose Level 116 Hematocrit 41.0 L Hemoglobin 12.6 L Indirect Bilirubin 0.4 Lymphocytes # 1.5 Lymphocytes % 12.7 L Mean Corpuscular Hemoglobin 23.3 L Mean Corpuscular Hemoglobin Concent 30.7 L Mean Corpuscular Volume 76.0 L Mean Platelet Volume 10.5 H Monocytes # 1.1 H Monocytes % 9.0 Neutrophils # 9.1 H Neutrophils % 77.9 H Nucleated Red Blood Cells # 0.0 Nucleated Red Blood Cells % 0.0 Platelet Count 207 Potassium Level 4.4 Red Blood Count 5.40 Red Cell Distribution Width 20.6 H Sodium Level 151 H Total Bilirubin 0.4 Total Protein 5.3 L White Blood Count 11.7 H Medications Current Medications Ondansetron HCl (Zofran Inj) 4 mg Q6H PRN IV NAUSEA AND/OR VOMITING; Start at 12:00 Nitroglycerin (Nitroglycerin (Sl Tab) 0.4 Mg) 1 tab Q5M PRN SL CHEST PAIN; Start 06/26/16 at 12:00 Acetaminophen (Tylenol Supp) 650 mg Q4H PRN [place] PAIN LEVEL 1-3 OR FEVER Last administered on 07/01/16 19:57; Admin Dose 650 MG; Start 06/26/16 at 12:00 Morphine Sulfate (morphine) 2 mg Q4H PRN IV PAIN LEVEL 7-10; Start 06/26/16 at 12:00 Lorazepam 1 mg 1 mg Q2H PRN IV ANXIETY Last administered on 07/04/16 19:31; Admin Dose 1 MG; Start 06/26/16 at 12:00 Cefepime HCl (Maxipime 1gm/50 ml (Pmx)) 50 ml @ 100 mls/hr Q12 IVPB Last administered on 07/09/16 08:58; Admin Dose 100 MLS/HR; Start 06/26/16 at 15:00 IV Flush (NS 10 ml) 10 ml PRN PRN IV IV PROTOCOL; Start 06/27/16 at 16:30 Metoprolol Tartrate 25 mg 25 mg BID PO Last administered on 07/08/16 21:34; Admin Dose 25 MG; Start 06/28/16 at 21:00 Fentanyl/Dextrose (D5W) 100 ml @ 0 mls/hr TITRATE IV Last administered on 23:12; Admin Dose 5 MLS/HR; Start 06/29/16 at 15:30 Nystatin (Nystatin Susp) 5 ml TID PO Last administered on 07/09/16 08:59; Admin Dose 5 ML; Start 06/30/16 at 21:00 Hydralazine HCl (Apresoline) 10 mg Q8 PO Last administered on 07/08/16 05:29; Admin Dose 10 MG; Start 07/01/16 at 14:00 Pantoprazole (Protonix Iv) 40 mg BID@06,18 IV Last administered on 07/09/16t 06: 04; Admin Dose 40 MG; Start 07/07/16 at 06:00 Enoxaparin Sodium 90 mg 90 mg Q12 SC ; Start 07/09/16 at 21:00 Bumetanide/ Dextrose (Bumex/D5W) 25 ml @ 50 mls/hr Q8 IV ; Start 07/09/16 at 14: 00 Assessment/Plan Chief Complaint/Hosp Course IMPRESSION AND PLAN: 1. Hypoxemic respiratory failure. Secondary to congestive cardiac failure 2. Likely ventilator associated pneumonia 3. Bacterial endocarditis with valvular heart disease. 4. History of prolonged and recent intravenous drug abuse. 5. History of pulmonary embolus. 6. Renal insufficiency The patient will require: 1. Continued mechanical ventilation. Discussed with patient's mom patient will need tracheostomy and G-tube currently not safe to extubate 2. Diuresis if tolerated. 3. Broad-spectrum antibiotics. 4. DVT and GI prophylaxis. Disposition Continue current level of care Problems: [facility] DAS MD, [facility] Jul 09, 2016 13:36
[2016-07-09] MEDS: FENTAnyl 1,000 MCG in DEXTROSE 5% 80 ML IV SCH (14:18)
[2016-07-09] MEDS: ENOXAPARIN 100 MG/ML SYG SC SCH (20:32)
[2016-07-10] VITALS (56 sets, daily range): BP systolic 93–113; BP diastolic 49–68; PULSE 82–111; RESP 13–19
[2016-07-10 05:22] LABS: POTASSIUM 3.5 mmol/L (3.5-5.1)
[2016-07-10 05:24] LABS: CREATININE 1.07 mg/dl (0.61-1.24)
[2016-07-10 05:25] LABS: CALCIUM 7.8 mg/dl (8.4-10.2)
[2016-07-10 05:33] LABS: BASOPHILS % 0.1 % (0.0-2.0); EOSINOPHILS # 0.1 10^3/ul (0.0-0.5); EOSINOPHILS % 0.6 % (0.0-7.0); HEMATOCRIT 38.3 % (42.0-52.0); HEMOGLOBIN 11.9 g/dl (14.0-18.0); LYMPHOCYTES # 1.5 10^3/ul (0.8-2.9); LYMPHOCYTES % 15.8 % (15.0-51.0); MEAN CORPUSCULAR HEMOGLOBIN 23.7 pg (29.0-33.0); MEAN CORPUSCULAR HGB CONC 31.1 g/dl (32.0-37.0); MEAN CORPUSCULAR VOLUME 76.1 fl (82.0-101.0); MEAN PLATELET VOLUME 10.7 fl (7.4-10.4); MONOCYTE # 0.8 10^3/ul (0.3-0.9); MONOCYTES % 7.9 % (0.0-11.0); NEUTROPHIL # 7.3 10^3/ul (1.6-7.5); NEUTROPHILS % 75.6 % (39.0-77.0); PLATELET COUNT 203 10^3/UL (140-440); RED BLOOD COUNT 5.04 10^6/ul (4.70-6.10); UNCORRECTED WBC 9.7 10^3/ul (4.8-10.8); WHITE BLOOD COUNT 9.7 10^3/ul (4.8-10.8)
[2016-07-10 06:20] LABS: CONDITION 1; LH ANALYZER COMMENTS 1
[2016-07-10] MEDS: PANTOPRAZOLE 40 MG INJ IV SCH ×2 (06:28→17:22)
[2016-07-10] MEDS: BUMETANIDE 2 MG in DEXTROSE 5% 17 ML IV SCH ×3 (06:29→22:21)
[2016-07-10] MEDS: POTASSIUM CHLORIDE 50 ML IVPB PRN ×2 (08:09→10:33)
[2016-07-10] MEDS: METOPROLOL 25 MG TAB PO SCH ×2 (09:00→21:00)
[2016-07-10] MEDS: NYSTATIN SUSP 5 ML CUP PO SCH ×3 (09:11→21:09)
[2016-07-10] MEDS: ENOXAPARIN 100 MG/ML SYG SC SCH (09:15)
[2016-07-10] MEDS: CEFEPIME 1GM/50 ML (PMX) 50 ML IVPB SCH ×2 (09:18→21:09)
--- NOTE | 2016-07-10 11:03 | CONS ---
Date/Time of Note Date/Time of Note DATE: 07/10/16 TIME: 11:02 Consult Date/Type/Reason Admit Date/Time Jun 26, 2016 at 11:39 Type of Consultation: pulmonary Ordering Provider: ASAD DAS MD, [facility] Subjective Neurologically no changes Moderate oral secretions continues mechanical ventilation Currently hemodynamically stable Objective Vital Signs Date Time Temp Pulse Resp B/P Pulse Ox O2 Delivery O2 Flow Rate FiO2 07/10/16 08:00 98.9 108 16 110/59 95 Mechanical Ventilator 07/10/16 08:00 30 Intake and Output 07/09/16 07/09/16 07/10/16 15:00 23:00 07:00 Intake Total 1175 ml 700 ml 695 ml Output Total 925 ml 1340 ml 825 ml Balance 250 ml -640 ml -130 ml PHYSICAL EXAMINATION GENERAL: Chronically ill-appearing gentleman comfortable at rest on mechanical ventilation VITAL SIGNS: see below. HEENT: Pupils equal, round, and reactive to light. Dry mucous membranes CARDIAC: S1, S2, CHEST: Diminished air entry bilaterally. ABDOMEN: Mildly distended. Bowel sounds present EXTREMITIES: No cyanosis, clubbing edema +1 NEUROLOGIC: Generalized weakness unable to assess Results/Medications Result Diagram: 07/10/16 0444 07/10/16 0500 Results 24 hrs Laboratory Tests Test 07/10/16 04:44 07/10/16 05:00 Basophils # 0.0 Basophils % 0.1 Blood Morphology Comment Eosinophils # 0.1 Eosinophils % 0.6 Hematocrit 38.3 L Hemoglobin 11.9 L Lymphocytes # 1.5 Lymphocytes % 15.8 Magnesium Level 2.2 Mean Corpuscular Hemoglobin 23.7 L Mean Corpuscular Hemoglobin Concent 31.1 L Mean Corpuscular Volume 76.1 L Mean Platelet Volume 10.7 H Monocytes # 0.8 Monocytes % 7.9 Neutrophils # 7.3 Neutrophils % 75.6 Nucleated Red Blood Cells # 0.0 Nucleated Red Blood Cells % 0.0 Platelet Count 203 Red Blood Count 5.04 Red Cell Distribution Width 21.0 H White Blood Count 9.7 Anion Gap 12 Blood Urea Nitrogen 59 H Calcium Level 7.8 L Carbon Dioxide Level 34 H Chloride Level 111 H Creatinine 1.07 Glucose Level 101 Potassium Level 3.5 Sodium Level 153 H Medications Current Medications Ondansetron HCl (Zofran Inj) 4 mg Q6H PRN IV NAUSEA AND/OR VOMITING; Start at 12:00 Nitroglycerin (Nitroglycerin (Sl Tab) 0.4 Mg) 1 tab Q5M PRN SL CHEST PAIN; Start 06/26/16 at 12:00 Acetaminophen (Tylenol Supp) 650 mg Q4H PRN [place] PAIN LEVEL 1-3 OR FEVER Last administered on 07/01/16 19:57; Admin Dose 650 MG; Start 06/26/16 at 12:00 Morphine Sulfate (morphine) 2 mg Q4H PRN IV PAIN LEVEL 7-10; Start 06/26/16 at 12:00 Lorazepam 1 mg 1 mg Q2H PRN IV ANXIETY Last administered on 07/04/16 19:31; Admin Dose 1 MG; Start 06/26/16 at 12:00 Cefepime HCl (Maxipime 1gm/50 ml (Pmx)) 50 ml @ 100 mls/hr Q12 IVPB Last administered on 07/10/16 09:18; Admin Dose 100 MLS/HR; Start 06/26/16 at 15:00 IV Flush (NS 10 ml) 10 ml PRN PRN IV IV PROTOCOL; Start 06/27/16 at 16:30 Metoprolol Tartrate 25 mg 25 mg BID PO Last administered on 07/08/16 21:34; Admin Dose 25 MG; Start 06/28/16 at 21:00 Fentanyl/Dextrose (D5W) 100 ml @ 0 mls/hr TITRATE IV Last administered on 14:18; Admin Dose 5 MLS/HR; Start 06/29/16 at 15:30 Nystatin (Nystatin Susp) 5 ml TID PO Last administered on 07/10/16 09:11; Admin Dose 5 ML; Start 06/30/16 at 21:00 Hydralazine HCl (Apresoline) 10 mg Q8 PO Last administered on 07/10/16 06:29; Admin Dose 10 MG; Start 07/01/16 at 14:00 Pantoprazole (Protonix Iv) 40 mg BID@06,18 IV Last administered on 07/10/16 06 :28; Admin Dose 40 MG; Start 07/07/16 at 06:00 Enoxaparin Sodium 90 mg 90 mg Q12 SC Last administered on 07/10/16 09:15; Admin Dose 90 MG; Start 07/09/16 at 21:00 Bumetanide/ Dextrose (Bumex/D5W) 25 ml @ 50 mls/hr Q8 IV Last administered on 06:29; Admin Dose 50 MLS/HR; Start 07/09/16 at 14:00 Assessment/Plan Chief Complaint/Hosp Course IMPRESSION AND PLAN: 1. Hypoxemic respiratory failure. Secondary to congestive cardiac failure 2. Likely ventilator associated pneumonia 3. Bacterial endocarditis with valvular heart disease. 4. History of prolonged and recent intravenous drug abuse. 5. History of pulmonary embolus. 6. Renal insufficiency The patient will require: 1. Continued mechanical ventilation. Discussed with patient's mom patient will need tracheostomy and G-tube currently not safe to extubate 2. Diuresis if tolerated. 3. Broad-spectrum antibiotics. 4. DVT and GI prophylaxis. Disposition Family agree to proceed with tracheostomy and PEG tube placement Problems: [facility] DAS MD, [facility] Jul 10, 2016 11:03
[2016-07-10] MEDS: FENTAnyl 1,000 MCG in DEXTROSE 5% 80 ML IV SCH (11:18)
--- NOTE | 2016-07-10 11:52 | PN ---
DATE: 07/10/2016 PALLIATIVE CARE PROGRESS NOTE Date of meeting with family members is July 09. The patient is to be scheduled to have a trach within a few days. The patient's is still concerned about his neurological status whether or n ot he will have some ongoing cognitive deficit after he has a trach and would prefer to have reconsi deration of a trach because of that very possible scenario. I have asked to have a family conferenc e tomorrow morning at 1000 hours, that has been arranged. I will be seeing him at the time. Follow up note will be done. Dictated By: JOELLEN VILLAR MD LP/NTS Conf#: [id number] DID#: [id number]
--- NOTE | 2016-07-10 12:12 | PN ---
Date/Time of Note Date/Time of Note DATE: 07/10/16 TIME: 12:04 Assessment/Plan VTE Prophylaxis VTE Prophylaxis Intervention: heparin Lines/Catheters IV Catheter Type (from Nrs): PICC Line Central line still needed: Yes Urinary Cath still in place: Yes Reason Cath still needed: other (indicate) Assessment/Plan Assessment/Plan 36 yo unfortunate male with a past medical history of Bacterial Endocarditis finished 6 week course of IV antibiotics, Drug abuse, Nicotine abuse, Right popliteal thrombosis, PE (on Eliquis prior to admission), Microcytic anemia, CHF - diastolic, who came for worsening shortness of breath. 1. Shortness of breath - hypoxemic respiratory failure - multifactorial - heart failure acute on chronic - Vent dependent - intubated. -Has not been able to pass CPAP trials the last few days / Will proceed with trach / CTS contacted 2. Sepsis - severe 2/2 to pneumonia (HCAP) + endocarditis - tachycardia/ leukocytosis - per ID, continue IV cefepime (vanco d/c'ed) / appreciate ID recs 3. CHF - diastolic dysfunction acute on chronic - EF recent shows 40%, D shaped left ventricle -Ongoing diuresis with Bumex per Nephrology 4. Hypernatremia - appreciate nephrology consult - f/u renal rec's, free H2O 5. BESSIE - acute on chronic - 2/2 #2 - improving - nephrology managing / appreciate input 6. Transaminitis - 2/2 to sepsis, or possible atypical pneumonia, monitor trend - improving 7. PE - on full dose anticoagulation with lovenox 8. Right popliteal thrombus - Lovenox resumed / no thrombus on recent LE USS 9. Microcytic anemia - monitor H/H, transfuse if hgb < 8 g/dL. Pt has been given IV iron as well. 10. GI ppx - IV Protonix BID 11. DVT ppx - heparin 12. DNR / DNI dispo - Plan for trach placement - Continue retirement abx tx and possible valve replacement surgery in future if more medically stable then critical care time today = 40 min Subjective 24 Hr Interval Summary Free Text/Dictation Patient seen and examined. Nursing reports no acute overnight events. Remains intubated on fentanyl drip Exam/Review of Systems Vital Signs Vitals Vital Signs Date Time Temp Pulse Resp B/P Pulse Ox O2 Delivery O2 Flow Rate FiO2 07/10/16 08:00 107 07/10/16 08:00 98.9 16 110/59 95 Mechanical Ventilator 07/10/16 08:00 30 Intake and Output 07/09/16 07/09/16 07/10/16 15:00 23:00 07:00 Intake Total 1175 ml 700 ml 695 ml Output Total 925 ml 1340 ml 825 ml Balance 250 ml -640 ml -130 ml Exam onstitutional: other (will open eyes to name), No alert Psych: other (unable to assess) Head: atraumatic, normocephalic Eyes: PERRL, No icteric ENMT: intubated Respiratory: diminished breath sounds, No labored breathing, No wheezing Cardiovascular: murmurs/extra sounds (3/6 systolic), No regular rate and rhythm (tachycardia) Gastrointestinal: bowel sounds, non-tender, other (NGT feeds), soft Genitourinary - Male: other (mild scrotal swelling) Extremities: pitting pedal edema (2-3+ bilaterally) Neurological: other (sedated) Skin: other (multiple tattos) Results Result Diagram: 07/10/16 0444 07/10/16 0500 Results 24 hrs Laboratory Tests Test 07/10/16 04:44 07/10/16 05:00 Basophils # 0.0 Basophils % 0.1 Blood Morphology Comment Eosinophils # 0.1 Eosinophils % 0.6 Hematocrit 38.3 L Hemoglobin 11.9 L Lymphocytes # 1.5 Lymphocytes % 15.8 Magnesium Level 2.2 Mean Corpuscular Hemoglobin 23.7 L Mean Corpuscular Hemoglobin Concent 31.1 L Mean Corpuscular Volume 76.1 L Mean Platelet Volume 10.7 H Monocytes # 0.8 Monocytes % 7.9 Neutrophils # 7.3 Neutrophils % 75.6 Nucleated Red Blood Cells # 0.0 Nucleated Red Blood Cells % 0.0 Platelet Count 203 Red Blood Count 5.04 Red Cell Distribution Width 21.0 H White Blood Count 9.7 Anion Gap 12 Blood Urea Nitrogen 59 H Calcium Level 7.8 L Carbon Dioxide Level 34 H Chloride Level 111 H Creatinine 1.07 Glucose Level 101 Potassium Level 3.5 Sodium Level 153 H Medications Medications Current Medications Ondansetron HCl (Zofran Inj) 4 mg Q6H PRN IV NAUSEA AND/OR VOMITING; Start 12/ 27/16 at 12:00 Nitroglycerin (Nitroglycerin (Sl Tab) 0.4 Mg) 1 tab Q5M PRN SL CHEST PAIN; Start 06/26/16 at 12:00 Acetaminophen (Tylenol Supp) 650 mg Q4H PRN [place] PAIN LEVEL 1-3 OR FEVER Last administered on 07/01/16 19:57; Admin Dose 650 MG; Start 06/26/16 at 12:00 Morphine Sulfate (morphine) 2 mg Q4H PRN IV PAIN LEVEL 7-10; Start 06/26/16 at 12:00 Lorazepam 1 mg 1 mg Q2H PRN IV ANXIETY Last administered on 07/04/16 19:31; Admin Dose 1 MG; Start 06/26/16 at 12:00 Cefepime HCl (Maxipime 1gm/50 ml (Pmx)) 50 ml @ 100 mls/hr Q12 IVPB Last administered on 07/10/16 09:18; Admin Dose 100 MLS/HR; Start 06/26/16 at 15:00 IV Flush (NS 10 ml) 10 ml PRN PRN IV IV PROTOCOL; Start 06/27/16 at 16:30 Metoprolol Tartrate 25 mg 25 mg BID PO Last administered on 07/08/16 21:34; Admin Dose 25 MG; Start 06/28/16 at 21:00 Fentanyl/Dextrose (D5W) 100 ml @ 0 mls/hr TITRATE IV Last administered on 11:18; Admin Dose 5 MLS/HR; Start 06/29/16 at 15:30 Nystatin (Nystatin Susp) 5 ml TID PO Last administered on 07/10/16 09:11; Admin Dose 5 ML; Start 06/30/16 at 21:00 Hydralazine HCl (Apresoline) 10 mg Q8 PO Last administered on 07/10/16 06:29; Admin Dose 10 MG; Start 07/01/16 at 14:00 Pantoprazole (Protonix Iv) 40 mg BID@06,18 IV Last administered on 07/10/16 06 :28; Admin Dose 40 MG; Start 07/07/16 at 06:00 Enoxaparin Sodium 90 mg 90 mg Q12 SC Last administered on 07/10/16 09:15; Admin Dose 90 MG; Start 07/09/16 at 21:00 Bumetanide/ Dextrose (Bumex/D5W) 25 ml @ 50 mls/hr Q8 IV Last administered on t 06:29; Admin Dose 50 MLS/HR; Start 07/09/16 at 14:00 AIYANA GIANG Jul 10, 2016 12:12
--- NOTE | 2016-07-10 13:33 | PN ---
DATE: 07/10/2016 INFECTIOUS DISEASE PROGRESS NOTE SUBJECTIVE: No events overnight. No fevers. The patient had low-grade fever of 100. He is lying comfortably in bed. VITAL SIGNS: Temperature today 98.9, pulse 108, respirations 16, blood pressure 110/59, saturation 95 on 30 FIO2. LABORATORY DATA: WBC 9.7, H and H 11.9 and 38.3, platelets 203, neutrophils 75.6, BUN 59, creatinin e 1.07. INDWELLINGS: Endotracheal tube, orogastric tube, Merino, PICC line placed on June 27. ANTIMICROBIALS: The patient remains on cefepime. PHYSICAL EXAMINATION: GENERAL: This is well-developed, well-nourished, ill-appearing, middle-aged man who is lying comfor tably in bed. HEENT: Head atraumatic, normocephalic. Sclerae anicteric. Buccal mucosa dry. NECK: Supple. Tracheostomy present. CHEST: Rise symmetrical. Breath sounds diminished to bases. HEART: S1, S2. ABDOMEN: Soft, bowel sounds present. EXTREMITIES: Bilateral edema. ASSESSMENT: 1. Acute respiratory failure secondary to pulmonary edema and congestive heart failure exacerbation , patient was treated for community-acquired pneumonia with Levaquin. 2. Aortic and mitral valve endocarditis. 3. Cardiomyopathy. 4. History of alpha hemolytic strep septicemia in March 2016. 5. History of cardiomyopathy. 6. History of IV drug abuse. PLAN: The patient remains stable. We will continue him on current antimicrobials. Pending trach a nd PEG. Follow recommendation of consultants and repeat cultures p.r.n. Dictated By: RAYMOND HER [employer] PROGRAM COORDINATOR for JULIO CESAR DURON/BRANDO Conf#: [id number] DID#: [id number]
--- NOTE | 2016-07-10 15:58 | CONS ---
Date/Time of Note Date/Time of Note DATE: 07/10/16 TIME: 15:41 Assessment/Plan Assessment/Plan Additional Assessment/Plan Microcytic anemia: * continue protonix BID * monitor H/H, transfuse if hgb < 8 g/dL. Pt has been given IV iron as well. Transaminitis - 2/2 to sepsis, or possible to viral hepatitis given his IVDU history. Currently transaminase stable * HCV pos, HCV RNA 9, 017,009 * Recommend outpatient follow-up with field engineer for HCV treatment Dysphagia * OG tube feed. Hold for residual greater than 150mL. * Plan for EGD plus PEG with Dr. Bradley tomorrow Encephalopathy * ammonia WNL, likely 2/2 to Hepatitis C Shortness of breath - hypoxemic respiratory failure - multifactorial - heart failure acute on chronic - Vent dependent - intubated. * Has not been able to pass CPAP trials the last few days / Will proceed with trach / CTS contacted Right popliteal thrombus * Lovenox resumed / no thrombus on recent LE USS PE * on full dose anticoagulation with lovenox Sepsis severe 2/2 to pneumonia * follow ID recs CHF * diastolic dysfunction acute on chronic - EF recent shows 40%, D shaped left ventricle * f/u cardiology Further recommendations depend on clinical course Patient seen in collaboration with Dr. Bradley GI sign off, available as needed for consultation Consultation Date/Type/Reason Admit Date/Time Jun 26, 2016 at 11:39 Type of Consultation: Gastroenterology Referring Provider: ASAD DAS MD, [facility] 24 HR Interval Summary Free Text/Dictation OG tube at 45 with minimal residual Patient currently intubated, and plans for tracheostomy in process Patient unable to be weaned off of ventilator support Encephalopathy precludes p.o. intake Patient will now need PEG tube Exam/Review of Systems Vital Signs Vitals Vital Signs Date Time Temp Pulse Resp B/P Pulse Ox O2 Delivery O2 Flow Rate FiO2 07/10/16 13:40 103 17 94 30 07/10/16 13:00 105/57 Mechanical Ventilator 07/10/16 12:30 98.2 Intake and Output 07/09/16 07/09/16 07/10/16 15:00 23:00 07:00 Intake Total 1175 ml 700 ml 740 ml Output Total 925 ml 1340 ml 900 ml Balance 250 ml -640 ml -160 ml Exam Constitutional: other (will open eyes to name), No alert Psych: other (unable to assess) Head: atraumatic, normocephalic Eyes: PERRL, No icteric ENMT: intubated Respiratory: diminished breath sounds, No labored breathing, No wheezing Cardiovascular: murmurs/extra sounds (3/6 systolic), No regular rate and rhythm (tachycardia) Gastrointestinal: bowel sounds, non-tender, other (NGT feeds), soft Genitourinary - Male: other (mild scrotal swelling) Extremities: pitting pedal edema (2-3+ bilaterally) Neurological: other (sedated) Skin: other (multiple tattos) Results Result Diagram: 07/10/16 0444 07/10/16 0500 Results 24 hrs Laboratory Tests Test 07/10/16 04:44 07/10/16 05:00 Basophils # 0.0 Basophils % 0.1 Blood Morphology Comment Eosinophils # 0.1 Eosinophils % 0.6 Hematocrit 38.3 L Hemoglobin 11.9 L Lymphocytes # 1.5 Lymphocytes % 15.8 Magnesium Level 2.2 Mean Corpuscular Hemoglobin 23.7 L Mean Corpuscular Hemoglobin Concent 31.1 L Mean Corpuscular Volume 76.1 L Mean Platelet Volume 10.7 H Monocytes # 0.8 Monocytes % 7.9 Neutrophils # 7.3 Neutrophils % 75.6 Nucleated Red Blood Cells # 0.0 Nucleated Red Blood Cells % 0.0 Platelet Count 203 Red Blood Count 5.04 Red Cell Distribution Width 21.0 H White Blood Count 9.7 Anion Gap 12 Blood Urea Nitrogen 59 H Calcium Level 7.8 L Carbon Dioxide Level 34 H Chloride Level 111 H Creatinine 1.07 Glucose Level 101 Potassium Level 3.5 Sodium Level 153 H Medications Medications Current Medications Ondansetron HCl (Zofran Inj) 4 mg Q6H PRN IV NAUSEA AND/OR VOMITING; Start at 12:00 Nitroglycerin (Nitroglycerin (Sl Tab) 0.4 Mg) 1 tab Q5M PRN SL CHEST PAIN; Start 06/26/16 at 12:00 Acetaminophen (Tylenol Supp) 650 mg Q4H PRN DE PAIN LEVEL 1-3 OR FEVER Last administered on 07/01/16t 19:57; Admin Dose 650 MG; Start 06/26/16 at 12:00 Morphine Sulfate (morphine) 2 mg Q4H PRN IV PAIN LEVEL 7-10; Start 06/26/16 at 12:00 Lorazepam 1 mg 1 mg Q2H PRN IV ANXIETY Last administered on 07/04/16 19:31; Admin Dose 1 MG; Start 06/26/16 at 12:00 Cefepime HCl (Maxipime 1gm/50 ml (Pmx)) 50 ml @ 100 mls/hr Q12 IVPB Last administered on 07/10/16 09:18; Admin Dose 100 MLS/HR; Start 06/26/16 at 15:00 IV Flush (NS 10 ml) 10 ml PRN PRN IV IV PROTOCOL; Start 06/27/16 at 16:30 Metoprolol Tartrate 25 mg 25 mg BID PO Last administered on 07/08/16 21:34; Admin Dose 25 MG; Start 06/28/16 at 21:00 Fentanyl/Dextrose (D5W) 100 ml @ 0 mls/hr TITRATE IV Last administered on 11:18; Admin Dose 5 MLS/HR; Start 06/29/16 at 15:30 Nystatin (Nystatin Susp) 5 ml TID PO Last administered on 07/10/16 13:51; Admin Dose 5 ML; Start 06/30/16 at 21:00 Hydralazine HCl (Apresoline) 10 mg Q8 PO Last administered on 07/10/16 13:58; Admin Dose 10 MG; Start 07/01/16 at 14:00 Pantoprazole (Protonix Iv) 40 mg BID@06,18 IV Last administered on 07/10/16 06 :28; Admin Dose 40 MG; Start 07/07/16 at 06:00 Enoxaparin Sodium 90 mg 90 mg Q12 SC Last administered on 07/10/16 09:15; Admin Dose 90 MG; Start 07/09/16 at 21:00 Bumetanide/ Dextrose (Bumex/D5W) 25 ml @ 50 mls/hr Q8 IV Last administered on 13:51; Admin Dose 50 MLS/HR; Start 07/09/16 at 14:00 DARIUSZ GARZA Jul 10, 2016 15:51
--- NOTE | 2016-07-10 20:06 | PN ---
Date/Time of Note Date/Time of Note DATE: 07/10/16 TIME: 20:05 Assessment/Plan Lines/Catheters IV Catheter Type (from Nrs): PICC Line Merino in Place (from Nrs): Yes Assessment/Plan Chief Complaint/Hosp Course IMPRESSION: 1. Endocarditis involving aortic and mitral valve. 2. Aortic regurgitation. 3. Mitral regurgitation. 4. Cardiomyopathy with diminished ejection fraction. 5. Renal failure. 6. History of drug use. 7. Elevation of the transaminases. 8. Coagulopathy. RECOMMENDATIONS: This patient is not a candidate to undergo surgery at the present time; too high risk for surgical repair. Please continue antibiotics. Pt DNR possible trach Discussed with the nursing staff. and the mother continue ABX plan for tracheoutomy Problems: Subjective 24 Hr Interval Summary Constitutional: improved Pain Control: mild Exam/Review of Systems Vital Signs Vitals Vital Signs Date Time Temp Pulse Resp B/P Pulse Ox O2 Delivery O2 Flow Rate FiO2 07/10/16 18:30 91 16 95/53 96 Mechanical Ventilator 07/10/16 17:10 30 07/10/16 16:00 98.7 Intake and Output 07/09/16 07/09/16 07/10/16 15:00 23:00 07:00 Intake Total 1175 ml 700 ml 740 ml Output Total 925 ml 1340 ml 900 ml Balance 250 ml -640 ml -160 ml Exam Neck: non-tender, supple Respiratory: clear to auscultation, normal air movement Cardiovascular: nl pulses, regular rate and rhythm Gastrointestinal: nl liver, spleen, non-tender, soft Results Result Diagram: 07/10/16 0444 07/10/16 0500 KARI ZAMAN MD Jul 10, 2016 20:05
[2016-07-10] MEDS ORDERED: DEXTROSE 5% 1,000 ML IV SCH (20:30)
--- NOTE | 2016-07-10 20:31 | CONS ---
Date/Time of Note Date/Time of Note DATE: 07/10/16 TIME: 20:26 Assessment/Plan Assessment/Plan Chief Complaint/Hosp Course 1. acute renal failure superimposed on CKD . renal function is decreased , some component of cardiorenal syndrome . His urine output has been higher and he has been in negative fluid balance since his Bumex dose was increased . 2. 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 CT surgery says that he is not a surgical candidate at this time . 3. CHF , with peripheral edema 4. hepatitis C with elevated liver enzymes 5. respiratory failure , ventilator dependent , weening from ventilator is being attempted . 6. hypokalemia , potassium is being corrected 7. hypernatremia , increase water flushes in G tube and add D5W IV . Problems: Consultation Date/Type/Reason Admit Date/Time Jun 26, 2016 at 11:39 Type of Consultation: Gastroenterology Referring Provider: ASAD DAS MD, [facility] 24 HR Interval Summary Free Text/Dictation he is in the ICU , sedated on a ventilator . Subjective hx not possible: pt non-verbal Exam/Review of Systems Vital Signs Vitals Vital Signs Date Time Temp Pulse Resp B/P Pulse Ox O2 Delivery O2 Flow Rate FiO2 07/10/16 18:30 91 16 95/53 96 Mechanical Ventilator 07/10/16 17:10 30 07/10/16 16:00 98.7 Intake and Output 07/09/16 07/09/16 07/10/16 15:00 23:00 07:00 Intake Total 1175 ml 700 ml 740 ml Output Total 925 ml 1340 ml 900 ml Balance 250 ml -640 ml -160 ml Exam Constitutional: non-verbal Respiratory: clear to auscultation, diminished breath sounds Cardiovascular: murmurs/extra sounds, regular rate and rhythm Gastrointestinal: soft Extremities: edema Results Result Diagram: 07/10/16 0444 07/10/16 0500 Results 24 hrs Laboratory Tests Test 07/10/16 04:44 07/10/16 05:00 Basophils # 0.0 Basophils % 0.1 Blood Morphology Comment Eosinophils # 0.1 Eosinophils % 0.6 Hematocrit 38.3 L Hemoglobin 11.9 L Lymphocytes # 1.5 Lymphocytes % 15.8 Magnesium Level 2.2 Mean Corpuscular Hemoglobin 23.7 L Mean Corpuscular Hemoglobin Concent 31.1 L Mean Corpuscular Volume 76.1 L Mean Platelet Volume 10.7 H Monocytes # 0.8 Monocytes % 7.9 Neutrophils # 7.3 Neutrophils % 75.6 Nucleated Red Blood Cells # 0.0 Nucleated Red Blood Cells % 0.0 Platelet Count 203 Red Blood Count 5.04 Red Cell Distribution Width 21.0 H White Blood Count 9.7 Anion Gap 12 Blood Urea Nitrogen 59 H Calcium Level 7.8 L Carbon Dioxide Level 34 H Chloride Level 111 H Creatinine 1.07 Glucose Level 101 Potassium Level 3.5 Sodium Level 153 H Medications Medications Current Medications Ondansetron HCl (Zofran Inj) 4 mg Q6H PRN IV NAUSEA AND/OR VOMITING; Start at 12:00 Nitroglycerin (Nitroglycerin (Sl Tab) 0.4 Mg) 1 tab Q5M PRN SL CHEST PAIN; Start 06/26/16 at 12:00 Acetaminophen (Tylenol Supp) 650 mg Q4H PRN [place] PAIN LEVEL 1-3 OR FEVER Last administered on 07/01/16 19:57; Admin Dose 650 MG; Start 06/26/16 at 12:00 Morphine Sulfate (morphine) 2 mg Q4H PRN IV PAIN LEVEL 7-10; Start 06/26/16 at 12:00 Lorazepam 1 mg 1 mg Q2H PRN IV ANXIETY Last administered on 07/04/16 19:31; Admin Dose 1 MG; Start 06/26/16 at 12:00 Cefepime HCl (Maxipime 1gm/50 ml (Pmx)) 50 ml @ 100 mls/hr Q12 IVPB Last administered on 07/10/16 09:18; Admin Dose 100 MLS/HR; Start 06/26/16 at 15:00 IV Flush (NS 10 ml) 10 ml PRN PRN IV IV PROTOCOL; Start 06/27/16 at 16:30 Metoprolol Tartrate 25 mg 25 mg BID PO Last administered on 07/08/16 21:34; Admin Dose 25 MG; Start 06/28/16 at 21:00 Fentanyl/Dextrose (D5W) 100 ml @ 0 mls/hr TITRATE IV Last administered on 11:18; Admin Dose 5 MLS/HR; Start 06/29/16 at 15:30 Nystatin (Nystatin Susp) 5 ml TID PO Last administered on 07/10/16 13:51; Admin Dose 5 ML; Start 06/30/16 at 21:00 Hydralazine HCl (Apresoline) 10 mg Q8 PO Last administered on 07/10/16 13:58; Admin Dose 10 MG; Start 07/01/16 at 14:00 Pantoprazole (Protonix Iv) 40 mg BID@06,18 IV Last administered on 07/10/16 17 :22; Admin Dose 40 MG; Start 07/07/16 at 06:00 Enoxaparin Sodium 90 mg 90 mg Q12 SC Last administered on 07/10/16 09:15; Admin Dose 90 MG; Start 07/09/16 at 21:00; Status Future hold Bumetanide/ Dextrose (Bumex/D5W) 25 ml @ 50 mls/hr Q8 IV Last administered on 13:51; Admin Dose 50 MLS/HR; Start 07/09/16 at 14:00 CRESENCIO CASTILLO MD Jul 10, 2016 20:31
[2016-07-10] MEDS ORDERED: POTASSIUM CHLORIDE 20 MEQ POWDER FOR ORAL SOLN GTB ONE (22:30)
[2016-07-11] VITALS (68 sets, daily range): BP systolic 90–113; BP diastolic 44–70; PULSE 82–119; RESP 13–29
[2016-07-11] MEDS: FENTAnyl 1,000 MCG in DEXTROSE 5% 80 ML IV SCH ×2 (01:41→15:40)
[2016-07-11 05:12] LABS: BASOPHILS % 0.4 % (0.0-2.0); EOSINOPHILS # 0.1 10^3/ul (0.0-0.5); EOSINOPHILS % 1.3 % (0.0-7.0); HEMATOCRIT 37.9 % (42.0-52.0); HEMOGLOBIN 11.7 g/dl (14.0-18.0); LYMPHOCYTES # 1.8 10^3/ul (0.8-2.9); LYMPHOCYTES % 21.2 % (15.0-51.0); MEAN CORPUSCULAR HEMOGLOBIN 23.7 pg (29.0-33.0); MEAN CORPUSCULAR VOLUME 76.6 fl (82.0-101.0); MEAN PLATELET VOLUME 10.9 fl (7.4-10.4); MONOCYTE # 0.6 10^3/ul (0.3-0.9); MONOCYTES % 7.2 % (0.0-11.0); NEUTROPHIL # 6.1 10^3/ul (1.6-7.5); NEUTROPHILS % 69.9 % (39.0-77.0); PLATELET COUNT 190 10^3/UL (140-440); RED BLOOD COUNT 4.94 10^6/ul (4.70-6.10); UNCORRECTED WBC 8.7 10^3/ul (4.8-10.8); WHITE BLOOD COUNT 8.7 10^3/ul (4.8-10.8)
[2016-07-11 05:14] LABS: INR 1.13; PROTIME 14.5 Sec (12.2-14.2); PT RATIO 1.1
[2016-07-11 05:15] LABS: PARTIAL THROMBOPLASTIN TIME 32.1 Sec (25.0-35.0)
[2016-07-11 05:17] LABS: CONDITION 1; LH ANALYZER COMMENTS 1; POTASSIUM 3.8 mmol/L (3.5-5.1)
[2016-07-11 05:20] LABS: CREATININE 1.04 mg/dl (0.61-1.24)
[2016-07-11 05:21] LABS: CALCIUM 7.7 mg/dl (8.4-10.2)
[2016-07-11] MEDS: BUMETANIDE 2 MG in DEXTROSE 5% 17 ML IV SCH ×3 (06:17→21:52)
[2016-07-11] MEDS: POTASSIUM CHLORIDE 20 MEQ POWDER FOR ORAL SOLN GTB SCH ×2 (06:17→21:52)
[2016-07-11] MEDS: PANTOPRAZOLE 40 MG INJ IV SCH ×2 (06:17→18:48)
--- NOTE | 2016-07-11 08:51 | CONS ---
Date/Time of Note Date/Time of Note DATE: 07/11/16 TIME: 08:46 Assessment/Plan Assessment/Plan Chief Complaint/Hosp Course 1. acute renal failure superimposed on CKD . renal function is stable , some component of cardiorenal syndrome . He was in positive fluid balance yesterday . Will increase Bumex dose . 2. 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 CT surgery says that he is not a surgical candidate at this time . 3. CHF , with peripheral edema 4. hepatitis C with elevated liver enzymes 5. respiratory failure , ventilator dependent , weening from ventilator is being attempted . 6. hypokalemia , potassium is being corrected 7. hypernatremia ,sodium is correcting , increase water flushes in G tube . Problems: Consultation Date/Type/Reason Admit Date/Time Jun 26, 2016 at 11:39 Type of Consultation: renal Referring Provider: ASAD DAS MD, [facility] 24 HR Interval Summary Free Text/Dictation he is in the ICU , on ventilator , sedated . He does open eyes to verbal stimuli . Subjective hx not possible: pt non-verbal Exam/Review of Systems Vital Signs Vitals Vital Signs Date Time Temp Pulse Resp B/P Pulse Ox O2 Delivery O2 Flow Rate FiO2 07/11/16 08:30 105 16 97/58 100 Mechanical Ventilator 07/11/16 08:00 98.2 07/11/16 05:20 30 Intake and Output 07/10/16 07/10/16 07/11/16 15:00 23:00 07:00 Intake Total 877.5 ml 865.0 ml 902.5 ml Output Total 1450 ml 870 ml 280 ml Balance -572.5 ml -5.0 ml 622.5 ml Exam Constitutional: non-verbal Respiratory: clear to auscultation, diminished breath sounds Cardiovascular: murmurs/extra sounds, regular rate and rhythm Gastrointestinal: soft Extremities: edema Results Result Diagram: 07/11/1643907/11/16439 Results 24 hrs Laboratory Tests Test 07/11/16 04:40 Activated Partial Thromboplast Time 32.1 Anion Gap 9 Basophils # 0.0 Basophils % 0.4 Blood Morphology Comment Blood Urea Nitrogen 55 H Calcium Level 7.7 L Carbon Dioxide Level 34 H Chloride Level 110 Creatinine 1.04 Eosinophils # 0.1 Eosinophils % 1.3 Glucose Level 108 Hematocrit 37.9 L Hemoglobin 11.7 L INR International Normalized Ratio 1.13 Lymphocytes # 1.8 Lymphocytes % 21.2 Mean Corpuscular Hemoglobin 23.7 L Mean Corpuscular Hemoglobin Concent 31.0 L Mean Corpuscular Volume 76.6 L Mean Platelet Volume 10.9 H Monocytes # 0.6 Monocytes % 7.2 Neutrophils # 6.1 Neutrophils % 69.9 Nucleated Red Blood Cells # 0.0 Nucleated Red Blood Cells % 0.0 Platelet Count 190 Potassium Level 3.8 Prothrombin Time 14.5 #H Prothrombin Time Ratio 1.1 Red Blood Count 4.94 Red Cell Distribution Width 22.0 H Sodium Level 149 H White Blood Count 8.7 Medications Medications Current Medications Ondansetron HCl (Zofran Inj) 4 mg Q6H PRN IV NAUSEA AND/OR VOMITING; Start at 12:00 Nitroglycerin (Nitroglycerin (Sl Tab) 0.4 Mg) 1 tab Q5M PRN SL CHEST PAIN; Start 06/26/16 at 12:00 Acetaminophen (Tylenol Supp) 650 mg Q4H PRN CA PAIN LEVEL 1-3 OR FEVER Last administered on 07/01/16 19:57; Admin Dose 650 MG; Start 06/26/16 at 12:00 Morphine Sulfate (morphine) 2 mg Q4H PRN IV PAIN LEVEL 7-10; Start 06/26/16 at 12:00 Lorazepam 1 mg 1 mg Q2H PRN IV ANXIETY Last administered on 07/04/16 19:31; Admin Dose 1 MG; Start 06/26/16 at 12:00 Cefepime HCl (Maxipime 1gm/50 ml (Pmx)) 50 ml @ 100 mls/hr Q12 IVPB Last administered on 07/10/16 21:09; Admin Dose 100 MLS/HR; Start 06/26/16 at 15:00 IV Flush (NS 10 ml) 10 ml PRN PRN IV IV PROTOCOL; Start 06/27/16 at 16:30 Metoprolol Tartrate 25 mg 25 mg BID PO Last administered on 07/08/16 21:34; Admin Dose 25 MG; Start 06/28/16 at 21:00 Fentanyl/Dextrose (D5W) 100 ml @ 0 mls/hr TITRATE IV Last administered on 01:41; Admin Dose 7.5 MLS/HR; Start 06/29/16 at 15:30 Nystatin (Nystatin Susp) 5 ml TID PO Last administered on 07/10/16 21:09; Admin Dose 5 ML; Start 06/30/16 at 21:00 Hydralazine HCl (Apresoline) 10 mg Q8 PO Last administered on 07/10/16 13:58; Admin Dose 10 MG; Start 07/01/16 at 14:00 Pantoprazole (Protonix Iv) 40 mg BID@06,18 IV Last administered on 07/11/16 06 :17; Admin Dose 40 MG; Start 07/07/16 at 06:00 Enoxaparin Sodium 90 mg 90 mg Q12 SC Last administered on 07/10/16 09:15; Admin Dose 90 MG; Start 07/09/16 at 21:00; Status Future hold Bumetanide 2 mg/ Dextrose 25 ml @ 50 mls/hr Q8 IV Last administered on 06:17; Admin Dose 50 MLS/HR; Start 07/09/16 at 14:00 Dextrose (D5W) 1,000 ml @ 50 mls/hr Q20H IV Last administered on 07/10/16 21: 10; Admin Dose 50 MLS/HR; Start 07/10/16 at 20:30 CRESENCIO CASTILLO MD Jul 11, 2016 08:51
[2016-07-11] MEDS: METOPROLOL 25 MG TAB PO SCH ×2 (09:00→21:57)
[2016-07-11] MEDS: CEFEPIME 1GM/50 ML (PMX) 50 ML IVPB SCH ×2 (09:26→21:57)
[2016-07-11] MEDS: NYSTATIN SUSP 5 ML CUP PO SCH ×3 (09:26→22:01)
--- NOTE | 2016-07-11 09:54 | CONS ---
Date/Time of Note Date/Time of Note DATE: 07/11/16 TIME: 09:48 Assessment/Plan Assessment/Plan Chief Complaint/Hosp Course IMPRESSION: 1. Congestive heart failure exacerbation, systolic, acute on chronic with last known EF approximately 40% by echo May 2016. 2. Aortic regurgitation, moderate to severe with possible ongoing vegetation by most recent echo May 2016. 3. Mitral regurgitation, moderate to severe. 4. History of recent endocarditis status post 6-week course of antibiotics. 5. Cardiomyopathy with decreased left ventricular ejection fraction last approximately 40% by echo 06/14/2016. 6. Coagulopathy. 7. Renal failure-improved 9. Increased LFTs-improving 10. Increased BNP. 12. Mild anemia. 13.Resp failure s/p intubation 14. s/p Code blue 15.DNR Recc: -Tele -Resumed on bumex drip/follow output/timber killer closely -Low dose BB/hydralazine as tolerated only following BP/HR closely -Lovenox held -Per CT surgery not a candidate for valve replacement at this time due to high risk -F/U blood cultures which have negative to date -Continue abx's -Possible trach and PEG pnding Problems: Consultation Date/Type/Reason Admit Date/Time Jun 26, 2016 at 11:39 Initial Consult Date 06/27/2016 Type of Consultation: Cardiology Reason for Consultation CHF/AR/MR Referring Provider: ASAD DAS MD, [facility] Exam/Review of Systems Vital Signs Vitals Vital Signs Date Time Temp Pulse Resp B/P Pulse Ox O2 Delivery O2 Flow Rate FiO2 07/11/16 08:30 105 16 97/58 100 Mechanical Ventilator 07/11/16 08:00 98.2 07/11/16 05:20 30 Intake and Output 07/10/16 07/10/16 07/11/16 15:00 23:00 07:00 Intake Total 877.5 ml 865.0 ml 902.5 ml Output Total 1450 ml 870 ml 280 ml Balance -572.5 ml -5.0 ml 622.5 ml Exam Review of Systems: CONSTITUTIONAL: No fevers, chills. PULMONARY: intubated CARDIOVASCULAR: No obvious chest pain/palpitations GASTROINTESTINAL: No nausea/vomiting. GENITOURINARY: No hematuria/dysuria. MUSCULOSKELETAL: No obvious myagias/arthalgias. PSYCHIATRIC: No documented depression. NEUROLOGIC: encephalopathy Constitutional: other (sedated) Psych: no complaints Head: normocephalic ENMT: mucosa pink and moist Neck: jvd (9-10 cm water), supple Respiratory: diminished breath sounds (at bases/B) Cardiovascular: regular rate and rhythm Gastrointestinal: non-tender, soft Musculoskeletal: muscle tone (normal) Extremities: pitting pedal edema (Bilateral) Neurological: other (No focal deficits) Results Result Diagram: 07/11/1643907/11/16439 Results 24 hrs Laboratory Tests Test 07/11/16 04:40 Activated Partial Thromboplast Time 32.1 Anion Gap 9 Basophils # 0.0 Basophils % 0.4 Blood Morphology Comment Blood Urea Nitrogen 55 H Calcium Level 7.7 L Carbon Dioxide Level 34 H Chloride Level 110 Creatinine 1.04 Eosinophils # 0.1 Eosinophils % 1.3 Glucose Level 108 Hematocrit 37.9 L Hemoglobin 11.7 L INR International Normalized Ratio 1.13 Lymphocytes # 1.8 Lymphocytes % 21.2 Mean Corpuscular Hemoglobin 23.7 L Mean Corpuscular Hemoglobin Concent 31.0 L Mean Corpuscular Volume 76.6 L Mean Platelet Volume 10.9 H Monocytes # 0.6 Monocytes % 7.2 Neutrophils # 6.1 Neutrophils % 69.9 Nucleated Red Blood Cells # 0.0 Nucleated Red Blood Cells % 0.0 Platelet Count 190 Potassium Level 3.8 Prothrombin Time 14.5 #H Prothrombin Time Ratio 1.1 Red Blood Count 4.94 Red Cell Distribution Width 22.0 H Sodium Level 149 H White Blood Count 8.7 Medications Medications Current Medications Ondansetron HCl (Zofran Inj) 4 mg Q6H PRN IV NAUSEA AND/OR VOMITING; Start at 12:00 Nitroglycerin (Nitroglycerin (Sl Tab) 0.4 Mg) 1 tab Q5M PRN SL CHEST PAIN; Start 06/26/16 at 12:00 Acetaminophen (Tylenol Supp) 650 mg Q4H PRN RI PAIN LEVEL 1-3 OR FEVER Last administered on 07/01/16t 19:57; Admin Dose 650 MG; Start 06/26/16 at 12:00 Morphine Sulfate (morphine) 2 mg Q4H PRN IV PAIN LEVEL 7-10; Start 06/26/16 at 12:00 Lorazepam 1 mg 1 mg Q2H PRN IV ANXIETY Last administered on 07/04/16 19:31; Admin Dose 1 MG; Start 06/26/16 at 12:00 Cefepime HCl (Maxipime 1gm/50 ml (Pmx)) 50 ml @ 100 mls/hr Q12 IVPB Last administered on 07/11/16 09:26; Admin Dose 100 MLS/HR; Start 06/26/16 at 15:00 IV Flush (NS 10 ml) 10 ml PRN PRN IV IV PROTOCOL; Start 06/27/16 at 16:30 Metoprolol Tartrate 25 mg 25 mg BID PO Last administered on 07/08/16 21:34; Admin Dose 25 MG; Start 06/28/16 at 21:00 Fentanyl/Dextrose (D5W) 100 ml @ 0 mls/hr TITRATE IV Last administered on 01:41; Admin Dose 7.5 MLS/HR; Start 06/29/16 at 15:30 Nystatin (Nystatin Susp) 5 ml TID PO Last administered on 07/11/16 09:26; Admin Dose 5 ML; Start 06/30/16 at 21:00 Hydralazine HCl (Apresoline) 10 mg Q8 PO Last administered on 07/10/16 13:58; Admin Dose 10 MG; Start 07/01/16 at 14:00 Pantoprazole (Protonix Iv) 40 mg BID@06,18 IV Last administered on 07/11/16 06 :17; Admin Dose 40 MG; Start 07/07/16 at 06:00 Enoxaparin Sodium 90 mg 90 mg Q12 SC Last administered on 07/10/16 09:15; Admin Dose 90 MG; Start 07/09/16 at 21:00; Status Future hold Bumetanide/ Dextrose (Bumex/D5W) 25 ml @ 50 mls/hr Q6 IV ; Start 07/11/16 at 12: 00 SEVERO STUBBS Jul 11, 2016 09:54
--- NOTE | 2016-07-11 10:29 | PN ---
Date/Time of Note Date/Time of Note DATE: 07/11/16 TIME: 10:28 Assessment/Plan Lines/Catheters IV Catheter Type (from Nrs): PICC Line Merino in Place (from Nrs): Yes Assessment/Plan Chief Complaint/Hosp Course IMPRESSION: 1. Endocarditis involving aortic and mitral valve. 2. Aortic regurgitation. 3. Mitral regurgitation. 4. Cardiomyopathy with diminished ejection fraction. 5. Renal failure. 6. History of drug use. 7. Elevation of the transaminases. 8. Coagulopathy. RECOMMENDATIONS: This patient is not a candidate to undergo surgery at the present time; too high risk for surgical repair. Please continue antibiotics. Pt DNR possible trach Discussed with the nursing staff. and the mother continue ABX plan for tracheostomy on Saturday Problems: Subjective 24 Hr Interval Summary Constitutional: improved Pain Control: mild Exam/Review of Systems Vital Signs Vitals Vital Signs Date Time Temp Pulse Resp B/P Pulse Ox O2 Delivery O2 Flow Rate FiO2 07/11/16 08:30 105 16 97/58 100 Mechanical Ventilator 07/11/16 08:00 98.2 07/11/16 05:20 30 Intake and Output 07/10/16 07/10/16 07/11/16 15:00 23:00 07:00 Intake Total 877.5 ml 865.0 ml 902.5 ml Output Total 1450 ml 870 ml 280 ml Balance -572.5 ml -5.0 ml 622.5 ml Exam Neck: non-tender, supple Respiratory: clear to auscultation, normal air movement Cardiovascular: nl pulses, regular rate and rhythm Gastrointestinal: nl liver, spleen, non-tender, soft Results Result Diagram: 07/11/1643907/11/16439 KARI ZAMAN MD Jul 11, 2016 10:29
--- NOTE | 2016-07-11 11:21 | PN ---
Date/Time of Note Date/Time of Note DATE: 07/11/16 TIME: 11:18 Assessment/Plan VTE Prophylaxis VTE Prophylaxis Intervention: LMWH Lines/Catheters IV Catheter Type (from Nrsg): PICC Line Central line still needed: Yes Urinary Cath still in place: Yes Reason Cath still needed: other (indicate) Assessment/Plan Assessment/Plan 36 yo unfortunate male with a past medical history of Bacterial Endocarditis finished 6 week course of IV antibiotics, Drug abuse, Nicotine abuse, Right popliteal thrombosis, PE (on Eliquis prior to admission), Microcytic anemia, CHF - diastolic, who came for worsening shortness of breath. 1. Shortness of breath - hypoxemic respiratory failure - multifactorial - heart failure acute on chronic - Vent dependent - intubated. -Has not been able to pass CPAP trials the last few days / Will proceed with trach 2. Sepsis - severe 2/2 to pneumonia (HCAP) + endocarditis - tachycardia/ leukocytosis - per ID, continue IV cefepime (vanco d/c'ed) / appreciate ID recs 3. CHF - diastolic dysfunction acute on chronic - EF recent shows 40%, D shaped left ventricle -Ongoing diuresis with Bumex per Nephrology 4. Hypernatremia - appreciate nephrology consult - f/u renal rec's, free H2O 5. BESSIE - acute on chronic - 2/2 #2 - improving - nephrology managing / appreciate input 6. Transaminitis - 2/2 to sepsis, or possible atypical pneumonia, monitor trend - improving 7. PE - on full dose anticoagulation with lovenox 8. Right popliteal thrombus - Lovenox resumed / no thrombus on recent LE USS 9. Microcytic anemia - monitor H/H, transfuse if hgb < 8 g/dL. Pt has been given IV iron as well. 10. GI ppx - IV Protonix BID 11. DVT ppx - heparin 12. 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 Intubated and sedated for comfort, but no pressor support. Nursing reports no acute overnight events. planned for trach /peg today Subjective hx not possible: pt critical Exam/Review of Systems Vital Signs Vitals Vital Signs Date Time Temp Pulse Resp B/P Pulse Ox O2 Delivery O2 Flow Rate FiO2 07/11/16 08:30 105 16 97/58 100 Mechanical Ventilator 07/11/16 08:00 98.2 07/11/16 05:20 30 Intake and Output 07/10/16 07/10/16 07/11/16 14:59 22:59 06:59 Intake Total 875.0 ml 805.0 ml 1015.0 ml Output Total 1200 ml 1150 ml 325 ml Balance -325.0 ml -345.0 ml 690.0 ml Exam Constitutional: other (will open eyes to name), No alert Psych: other (unable to assess) Head: atraumatic, normocephalic Eyes: PERRL, No icteric ENMT: intubated Respiratory: diminished breath sounds, No labored breathing, No wheezing Cardiovascular: murmurs/extra sounds (3/6 systolic), No regular rate and rhythm (tachycardia) Gastrointestinal: bowel sounds, non-tender, other (NGT feeds), soft Genitourinary - Male: other (mild scrotal swelling) Extremities: pitting pedal edema (2-3+ bilaterally) Neurological: other (sedated) Skin: other (multiple tattos) Results Result Diagram: 07/11/16 0440 07/11/16 0440 Results 24 hrs Laboratory Tests Test 07/11/16 04:40 Activated Partial Thromboplast Time 32.1 Anion Gap 9 Basophils # 0.0 Basophils % 0.4 Blood Morphology Comment Blood Urea Nitrogen 55 H Calcium Level 7.7 L Carbon Dioxide Level 34 H Chloride Level 110 Creatinine 1.04 Eosinophils # 0.1 Eosinophils % 1.3 Glucose Level 108 Hematocrit 37.9 L Hemoglobin 11.7 L INR International Normalized Ratio 1.13 Lymphocytes # 1.8 Lymphocytes % 21.2 Mean Corpuscular Hemoglobin 23.7 L Mean Corpuscular Hemoglobin Concent 31.0 L Mean Corpuscular Volume 76.6 L Mean Platelet Volume 10.9 H Monocytes # 0.6 Monocytes % 7.2 Neutrophils # 6.1 Neutrophils % 69.9 Nucleated Red Blood Cells # 0.0 Nucleated Red Blood Cells % 0.0 Platelet Count 190 Potassium Level 3.8 Prothrombin Time 14.5 #H Prothrombin Time Ratio 1.1 Red Blood Count 4.94 Red Cell Distribution Width 22.0 H Sodium Level 149 H White Blood Count 8.7 Medications Medications Current Medications Ondansetron HCl (Zofran Inj) 4 mg Q6H PRN IV NAUSEA AND/OR VOMITING; Start at 12:00 Nitroglycerin (Nitroglycerin (Sl Tab) 0.4 Mg) 1 tab Q5M PRN SL CHEST PAIN; Start 06/26/16 at 12:00 Acetaminophen (Tylenol Supp) 650 mg Q4H PRN [place] PAIN LEVEL 1-3 OR FEVER Last administered on 07/01/16 19:57; Admin Dose 650 MG; Start 06/26/16 at 12:00 Morphine Sulfate (morphine) 2 mg Q4H PRN IV PAIN LEVEL 7-10; Start 06/26/16 at 12:00 Lorazepam 1 mg 1 mg Q2H PRN IV ANXIETY Last administered on 07/04/16 19:31; Admin Dose 1 MG; Start 06/26/16 at 12:00 Cefepime HCl (Maxipime 1gm/50 ml (Pmx)) 50 ml @ 100 mls/hr Q12 IVPB Last administered on 07/11/16 09:26; Admin Dose 100 MLS/HR; Start 06/26/16 at 15:00 IV Flush (NS 10 ml) 10 ml PRN PRN IV IV PROTOCOL; Start 06/27/16 at 16:30 Metoprolol Tartrate 25 mg 25 mg BID PO Last administered on 07/08/16 21:34; Admin Dose 25 MG; Start 06/28/16 at 21:00 Fentanyl/Dextrose (D5W) 100 ml @ 0 mls/hr TITRATE IV Last administered on 01:41; Admin Dose 7.5 MLS/HR; Start 06/29/16 at 15:30 Nystatin (Nystatin Susp) 5 ml TID PO Last administered on 07/11/16 09:26; Admin Dose 5 ML; Start 06/30/16 at 21:00 Hydralazine HCl (Apresoline) 10 mg Q8 PO Last administered on 07/10/16 13:58; Admin Dose 10 MG; Start 07/01/16 at 14:00 Pantoprazole (Protonix Iv) 40 mg BID@06,18 IV Last administered on 07/11/16 06 :17; Admin Dose 40 MG; Start 07/07/16 at 06:00 Enoxaparin Sodium 90 mg 90 mg Q12 SC Last administered on 07/10/16t 09:15; Admin Dose 90 MG; Start 07/09/16 at 21:00; Status Future hold Bumetanide/ Dextrose (Bumex/D5W) 25 ml @ 50 mls/hr Q6 IV ; Start 07/11/16 at 12: 00 AIYANA GIANG Jul 11, 2016 11:20
--- NOTE | 2016-07-11 13:34 | PN ---
DATE: 07/10/2016 FAMILY CONFERENCE: Family conference was done with the patient's father, mother and case management . I reviewed h is current clinical condition and gave the family options at this point. I recommended, before they make a final decision of anything including trach, to wait for the neurology second consultation an d possible results of the EEG. I did not give them hope that he will improve or that he has had a r eversible neurological injury, especially since he is on a low dose of sedation at this time. Famil y members have made it clear that they would like him to have a trach irrespective of what neuro sug gests, and at a later date, they will decide whether or not to discontinue the level of care if he d oes not improve neurologically. Dictated By: JOELLEN VILLAR MD, LP/BRANDO Conf#: [id number] DID#: [id number]
--- NOTE | 2016-07-11 14:16 | PN ---
DATE: 07/11/2016 SUBJECTIVE: No acute events overnight. The patient is awake, comfortable on vent. No fevers. LABORATORY: WBC today 8.7, H and H 11.7 and 37.9, platelets 190, neutrophils 69.9, BUN 55, creatini ne 1.04. INDWELLINGS: Endotracheal tube, orogastric tube, Merino, PICC line placed on 06/27/2016. MICROBIOLOGY: Blood and urine cultures remain negative. PHYSICAL EXAMINATION: GENERAL: This is a chronically ill-appearing, middle-aged white man who is awake and comfortable on vent. HEENT: Head atraumatic, normocephalic. Sclerae anicteric. Buccal mucosa dry. NECK: Supple. CHEST: Rise symmetrical. Breath sounds diminished at the bases. HEART: S1, S2. ABDOMEN: Soft, bowel tones present. EXTREMITIES: Bilateral edema. ASSESSMENT: 1. Acute respiratory failure secondary to pulmonary edema, treated for community-acquired pneumonia with Levaquin. 2. Aortic and mitral valve endocarditis. 3. Status post alpha hemolytic strep septicemia. 4. Cardiomyopathy. 5. Status post-acute renal failure. 6. History of IV drug abuse. PLAN: The patient remains stable. Continue present care, antibiotics. Plan for trach and PEG. Ab ove was discussed with patient and mother at bedside. Dictated By: RAYMOND HER BUILDING SERVICEMAN for JULIO CESAR DURON/NTS Conf#: [id number] DID#: [id number]
[2016-07-11] MEDS: LORAZEPAM 2 MG INJ IV PRN (15:38)
[2016-07-11] MEDS ORDERED: CEFAZOLIN 1 GM/50 ML (PMX) 50 ML IVPB ONE (16:30)
[2016-07-11] MEDS ORDERED: MIDAZOLAM 1 MG/ML 2 ML INJ ONE (18:37)
[2016-07-11] MEDS ORDERED: PROPOFOL 20 ML ONE (18:37)
[2016-07-11] MEDS ORDERED: LIDOCAINE 2% (SDV) 5 ML INJ ONE (18:37)
[2016-07-11] MEDS ORDERED: EPHEDrine SULFATE 50 MG/5 ML SYG ONE (19:33)
[2016-07-11] MEDS: ENOXAPARIN 100 MG/ML SYG SC SCH (21:59)
[2016-07-12] VITALS (68 sets, daily range): BP systolic 91–112; BP diastolic 48–70; PULSE 94–128; RESP 13–20
--- NOTE | 2016-07-12 00:05 | GILP ---
DATE OF PROCEDURE: NAME OF PROCEDURE: Esophagogastroduodenoscopy with percutaneous endoscopic gastrostomy tube placeme nt. SURGEON: Justice Bradley MD HISTORY AND INDICATIONS: The patient is requiring enteral feeding support due to ventilator-depende nt respiratory failure. PREMEDICATION: Monitored anesthesia care by anesthesiologist. INSTRUMENT USED: Olympus panendoscope. TECHNIQUE: After informed consent, with the patient and/or family members understanding the procedu re, its indications, potential risks and complications, including but not limited to: allergic react ion, bleeding, perforation, infection or leakage, and after all pertinent questions were answered to the patient and/or family members satisfaction, the patient and/or family member signed witnessed i nformed consent. Following this, premedication was administered slowly IV push, under careful cardiovascular and resp iratory monitoring with pulse oximetry, blood pressure and library monitor. Once the sedative effect was achieved the patient was place in the supine position, the panendoscope was introduced and advanced under visual guidance. Careful examination of the upper gastrointestinal tract, on insertion as well as withdrawal of the i nstrument disclosed the following findings: ESOPHAGUS: The mucosa of the entire esophagus appears within normal limits. There is no evidence of esophagitis, varices, neoplasm or stricture. STOMACH: Upon entrance to the stomach, air was insufflated, the gastric gordillo distended normally. T he mucosa of the fundus, body and antrum of the stomach was carefully examined both head-on and on r etroflexion and shows no abnormalities. There is no evidence of gastritis, ulcers or neoplasm. PYLORUS: The pylorus appears patent and within normal limits with no evidence of gastric outlet obs truction. DUODENUM: The duodenal mucosa was carefully examined in the duodenal bulb as well as the second por tion of the duodenum and appears unremarkable with no evidence of duodenitis, ulcer or neoplasm. The instrument was then brought back to the stomach and the anterior wall mid-body was identified by transillumination and "finger indentation", this area was then marked in the anterior wall of the a bdomen, it was cleansed with Betadine and infiltrated with Xylocaine 1%. Following this a trocar nee dle was introduced into the gastric lumen under visual control with the endoscope, once in the gastr ic lumen a guide wire was advanced and secured with a polypectomy snare, at this point the endoscope was withdrawn bringing the guide wire out through the patients mouth. Following this a gastrostomy tube was introduced over the guide wire, with the Sacks-Vinne technique without difficulty, a small incision was performed in the skin to allow easy passage of the G-tube, once the position of the gas trostomy tube was confirmed, the external stopper and connectors were installed, and a clean dressin g applied. Gastrostomy tube used was Irish 20 gastrostomy tube. The patient tolerated the procedure well and was transferred out of the endoscopy suite awake, and i n good condition to continue recovery under observation, feedings will started in the next 12-24h an d gastrostomy care will be instituted. IMPRESSION: Uneventful percutaneous endoscopic gastrostomy tube placement with placement of Irish 20 gastrostomy tube. PLAN: Feedings will be started tomorrow morning. Gastrostomy tube may be used for medications michelle ght. Gastrostomy tube care as indicated. Abdominal binder will be installed. Dictated By: JUSTICE ALVAREZ Conf#: [id number] DID#: [id number]
[2016-07-12] MEDS: BUMETANIDE 2 MG in DEXTROSE 5% 17 ML IV SCH ×2 (00:48→05:11)
[2016-07-12] MEDS: PANTOPRAZOLE 40 MG INJ IV SCH ×2 (05:11→17:35)
[2016-07-12] MEDS: POTASSIUM CHLORIDE 20 MEQ POWDER FOR ORAL SOLN GTB SCH ×2 (05:11→17:35)
[2016-07-12] MEDS: FENTAnyl 1,000 MCG in DEXTROSE 5% 80 ML IV SCH ×3 (05:34→21:06)
[2016-07-12 05:57] LABS: BASOPHILS % 0.1 % (0.0-2.0); EOSINOPHILS % 0.5 % (0.0-7.0); HEMATOCRIT 39.4 % (42.0-52.0); HEMOGLOBIN 12.1 g/dl (14.0-18.0); LYMPHOCYTES # 1.5 10^3/ul (0.8-2.9); MEAN CORPUSCULAR HEMOGLOBIN 23.6 pg (29.0-33.0); MEAN CORPUSCULAR HGB CONC 30.8 g/dl (32.0-37.0); MEAN CORPUSCULAR VOLUME 76.5 fl (82.0-101.0); MEAN PLATELET VOLUME 11.3 fl (7.4-10.4); MONOCYTE # 0.5 10^3/ul (0.3-0.9); NEUTROPHIL # 6.1 10^3/ul (1.6-7.5); NEUTROPHILS % 75.4 % (39.0-77.0); PLATELET COUNT 187 10^3/UL (140-440); RED BLOOD COUNT 5.15 10^6/ul (4.70-6.10); RED CELL DISTRIBUTION WIDTH 21.7 % (11.5-14.5); UNCORRECTED WBC 8.1 10^3/ul (4.8-10.8); WHITE BLOOD COUNT 8.1 10^3/ul (4.8-10.8)
[2016-07-12 06:08] LABS: CONDITION 1; LH ANALYZER COMMENTS 1; SUSPECT 1
[2016-07-12 06:38] LABS: ALBUMIN 2.3 g/dl (3.3-4.9)
[2016-07-12 06:39] LABS: POTASSIUM 4.1 mmol/L (3.5-5.1)
[2016-07-12 06:41] LABS: BILIRUBIN,INDIRECT 0.6 mg/dl (0-1.1); BILIRUBIN,TOTAL 0.6 mg/dl (0.2-1.3); CREATININE 1.13 mg/dl (0.61-1.24)
[2016-07-12 06:42] LABS: ALBUMIN/GLOBULIN RATIO 0.82; TOTAL PROTEIN 5.1 g/dl (6.1-8.1)
[2016-07-12 06:43] LABS: CALCIUM 8.1 mg/dl (8.4-10.2)
--- NOTE | 2016-07-12 08:52 | PN ---
Date/Time of Note Date/Time of Note DATE: 07/12/16 TIME: 08:48 Assessment/Plan VTE Prophylaxis VTE Prophylaxis Intervention: LMWH Lines/Catheters IV Catheter Type (from Nrsg): PICC Line Central line still needed: Yes Urinary Cath still in place: Yes Reason Cath still needed: other (indicate) (intubated and sedated) Assessment/Plan Assessment/Plan 36 yo unfortunate male with a past medical history of Bacterial Endocarditis finished 6 week course of IV antibiotics, Drug abuse, Nicotine abuse, Right popliteal thrombosis, PE (on Eliquis prior to admission), Microcytic anemia, CHF - diastolic, who came for worsening shortness of breath. 1. Shortness of breath - hypoxemic respiratory failure - multifactorial - heart failure acute on chronic - Vent dependent - intubated. -Has not been able to pass CPAP trials the last few days / Will proceed with trach 2. Sepsis - severe 2/2 to pneumonia (HCAP) + endocarditis - tachycardia/ leukocytosis - per ID, continue IV cefepime (vanco d/c'ed) / appreciate ID recs 3. CHF - diastolic dysfunction acute on chronic - EF recent shows 40%, D shaped left ventricle -Ongoing diuresis with Bumex per Nephrology 4. Hypernatremia - appreciate nephrology consult - f/u renal rec's, free H2O 5. BESSIE - acute on chronic - 2/2 #2 - improving - nephrology managing / appreciate input 6. Transaminitis - 2/2 to sepsis, or possible atypical pneumonia, monitor trend - improving 7. PE - on full dose anticoagulation with lovenox 8. Right popliteal thrombus - Lovenox resumed / no thrombus on recent LE USS 9. Microcytic anemia - monitor H/H, transfuse if hgb < 8 g/dL. Pt has been given IV iron as well. 10. GI ppx - IV Protonix BID 11. DVT ppx - heparin 12. 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 Intubated and sedated for comfort, but no pressor support. Trach planned for saturday PEG placed yesterday. We start using it today Patient pulling at ETT hence requiring restraints Exam/Review of Systems Vital Signs Vitals Vital Signs Date Time Temp Pulse Resp B/P Pulse Ox O2 Delivery O2 Flow Rate FiO2 07/12/16 07:00 102 16 99/54 100 07/12/16 06:00 Mechanical Ventilator 07/12/16 04:55 30 07/12/16 04:00 98.1 Intake and Output 07/11/16 07/11/16 07/12/16 15:00 23:00 07:00 Intake Total 240.0 ml 234 ml 220 ml Output Total 775 ml 645 ml 440 ml Balance -535.0 ml -411 ml -220 ml Exam Constitutional: No alert, No distress, No oriented Head: normocephalic Eyes: PERRL ENMT: intubated Respiratory: diminished breath sounds Cardiovascular: murmurs/extra sounds, regular rate and rhythm Gastrointestinal: bowel sounds, soft Extremities: pitting pedal edema (improving still about 2-3, but better) Neurological: lethargic, No nl mental status, No nl speech Skin: other (multiple tattoos) Results Result Diagram: 07/12/1615 07/12/16 0515 Results 24 hrs Laboratory Tests Test 07/12/16 05:15 Alanine Aminotransferase (ALT/SGPT) 59 Albumin 2.3 L Albumin/Globulin Ratio 0.82 Alkaline Phosphatase 59 Anion Gap 14 Aspartate Amino Transf (AST/SGOT) 76 H Basophils # 0.0 Basophils % 0.1 Blood Morphology Comment Blood Urea Nitrogen 53 H Calcium Level 8.1 L Carbon Dioxide Level 33 H Chloride Level 111 H Creatinine 1.13 Direct Bilirubin 0.00 Eosinophils # 0.0 Eosinophils % 0.5 Globulin 2.80 Glucose Level 91 Hematocrit 39.4 L Hemoglobin 12.1 L Indirect Bilirubin 0.6 Lymphocytes # 1.5 Lymphocytes % 18.0 Mean Corpuscular Hemoglobin 23.6 L Mean Corpuscular Hemoglobin Concent 30.8 L Mean Corpuscular Volume 76.5 L Mean Platelet Volume 11.3 H Monocytes # 0.5 Monocytes % 6.0 Neutrophils # 6.1 Neutrophils % 75.4 Nucleated Red Blood Cells # 0.0 Nucleated Red Blood Cells % 0.0 Platelet Count 187 Potassium Level 4.1 Red Blood Count 5.15 Red Cell Distribution Width 21.7 H Sodium Level 154 H Total Bilirubin 0.6 Total Protein 5.1 L White Blood Count 8.1 Medications Medications Current Medications Ondansetron HCl (Zofran Inj) 4 mg Q6H PRN IV NAUSEA AND/OR VOMITING; Start at 12:00 Nitroglycerin (Nitroglycerin (Sl Tab) 0.4 Mg) 1 tab Q5M PRN SL CHEST PAIN; Start 06/26/16 at 12:00 Acetaminophen (Tylenol Supp) 650 mg Q4H PRN [place] PAIN LEVEL 1-3 OR FEVER Last administered on 07/01/16 19:57; Admin Dose 650 MG; Start 06/26/16 at 12:00 Morphine Sulfate (morphine) 2 mg Q4H PRN IV PAIN LEVEL 7-10; Start 06/26/16 at 12:00 Lorazepam 1 mg 1 mg Q2H PRN IV ANXIETY Last administered on 07/11/16 15:38; Admin Dose 1 MG; Start 06/26/16 at 12:00 Cefepime HCl (Maxipime 1gm/50 ml (Pmx)) 50 ml @ 100 mls/hr Q12 IVPB Last administered on 07/11/16 21:57; Admin Dose 100 MLS/HR; Start 06/26/16 at 15:00 IV Flush (NS 10 ml) 10 ml PRN PRN IV IV PROTOCOL; Start 06/27/16 at 16:30 Metoprolol Tartrate 25 mg 25 mg BID PO Last administered on 07/11/16 21:57; Admin Dose 25 MG; Start 06/28/16 at 21:00 Fentanyl/Dextrose (D5W) 100 ml @ 0 mls/hr TITRATE IV Last administered on 05:34; Admin Dose 10 MLS/HR; Start 06/29/16 at 15:30 Nystatin (Nystatin Susp) 5 ml TID PO Last administered on 07/11/16 22:01; Admin Dose 5 ML; Start 06/30/16 at 21:00 Hydralazine HCl (Apresoline) 10 mg Q8 PO Last administered on 07/11/16 21:56; Admin Dose 10 MG; Start 07/01/16 at 14:00 Pantoprazole (Protonix Iv) 40 mg BID@06,18 IV Last administered on 07/12/16 05 :11; Admin Dose 40 MG; Start 07/07/16 at 06:00 Enoxaparin Sodium 90 mg 90 mg Q12 SC Last administered on 07/11/16 21:59; Admin Dose 90 MG; Start 07/09/16 at 21:00; Status Future hold Bumetanide/ Dextrose (Bumex/D5W) 25 ml @ 50 mls/hr Q6 IV Last administered on 05:11; Admin Dose 50 MLS/HR; Start 07/11/16 at 12:00 Procedures Procedures DATE OF PROCEDURE: 07/11/16 NAME OF PROCEDURE: Esophagogastroduodenoscopy with percutaneous endoscopic gastrostomy tube placement. SURGEON: MD PADMAJA Forman BOLATITO M. Jul 12, 2016 08:52
[2016-07-12] MEDS: NYSTATIN SUSP 5 ML CUP PO SCH ×3 (08:58→21:02)
[2016-07-12] MEDS: METOPROLOL 25 MG TAB PO SCH ×2 (08:58→21:02)
[2016-07-12] MEDS: CEFEPIME 1GM/50 ML (PMX) 50 ML IVPB SCH (08:59)
[2016-07-12] MEDS: ENOXAPARIN 100 MG/ML SYG SC SCH (09:00)
--- NOTE | 2016-07-12 09:59 | CONS ---
Date/Time of Note Date/Time of Note DATE: 07/12/16 TIME: 09:55 Assessment/Plan Assessment/Plan Chief Complaint/Hosp Course IMPRESSION: 1. Congestive heart failure exacerbation, systolic, acute on chronic with last known EF approximately 40% by echo May 2016. 2. Aortic regurgitation, moderate to severe with possible ongoing vegetation by most recent echo May 2016. 3. Mitral regurgitation, moderate to severe. 4. History of recent endocarditis status post 6-week course of antibiotics. 5. Cardiomyopathy with decreased left ventricular ejection fraction last approximately 40% by echo 06/14/2016. 6. Coagulopathy-resolved 7. Renal failure-improved 9. Increased LFTs-improving 10. Increased BNP. 12. Mild anemia. 13.Resp failure s/p intubation 14. s/p Code blue 15.DNR 16.dysphagia s/p G tube Recc: -Tele -Continue bumex IVP /follow output/academic affairs director closely -Low dose BB/hydralazine as tolerated only following BP/HR closely -Lovenox held -Per CT surgery not a candidate for valve replacement at this time due to high risk -F/U blood cultures which have negative to date -Continue abx's -TRach pnding Problems: Consultation Date/Type/Reason Admit Date/Time Jun 26, 2016 at 11:39 Initial Consult Date 06/27/2016 Type of Consultation: Cardiology Reason for Consultation CHF/AR/MR Referring Provider: ASAD DAS MD, [facility] Exam/Review of Systems Vital Signs Vitals Vital Signs Date Time Temp Pulse Resp B/P Pulse Ox O2 Delivery O2 Flow Rate FiO2 07/12/16 09:31 108 16 100 30 07/12/16 09:00 100/57 Mechanical Ventilator 07/12/16 08:00 97.8 Intake and Output 07/11/16 07/11/16 07/12/16 15:00 23:00 07:00 Intake Total 240.0 ml 234 ml 220 ml Output Total 775 ml 645 ml 440 ml Balance -535.0 ml -411 ml -220 ml Exam Review of Systems: CONSTITUTIONAL: No fevers, chills. PULMONARY: intubated CARDIOVASCULAR: No obvious chest pain/palpitations GASTROINTESTINAL: No nausea/vomiting. GENITOURINARY: No hematuria/dysuria. MUSCULOSKELETAL: No obvious myagias/arthalgias. PSYCHIATRIC: No documented depression. NEUROLOGIC: sedated Constitutional: other (sedated) Psych: no complaints Head: normocephalic ENMT: intubated, mucosa pink and moist Neck: jvd, supple Respiratory: diminished breath sounds (at bases/B) Cardiovascular: other (tachycardic regular rhythm) Gastrointestinal: non-tender, soft Musculoskeletal: muscle tone (normal) Extremities: pitting pedal edema (bilateral) Neurological: other (sedated) Results Result Diagram: 07/12/1651407/12/1615 Results 24 hrs Laboratory Tests Test 07/12/16 05:15 Alanine Aminotransferase (ALT/SGPT) 59 Albumin 2.3 L Albumin/Globulin Ratio 0.82 Alkaline Phosphatase 59 Anion Gap 14 Aspartate Amino Transf (AST/SGOT) 76 H Basophils # 0.0 Basophils % 0.1 Blood Morphology Comment Blood Urea Nitrogen 53 H Calcium Level 8.1 L Carbon Dioxide Level 33 H Chloride Level 111 H Creatinine 1.13 Direct Bilirubin 0.00 Eosinophils # 0.0 Eosinophils % 0.5 Globulin 2.80 Glucose Level 91 Hematocrit 39.4 L Hemoglobin 12.1 L Indirect Bilirubin 0.6 Lymphocytes # 1.5 Lymphocytes % 18.0 Mean Corpuscular Hemoglobin 23.6 L Mean Corpuscular Hemoglobin Concent 30.8 L Mean Corpuscular Volume 76.5 L Mean Platelet Volume 11.3 H Monocytes # 0.5 Monocytes % 6.0 Neutrophils # 6.1 Neutrophils % 75.4 Nucleated Red Blood Cells # 0.0 Nucleated Red Blood Cells % 0.0 Platelet Count 187 Potassium Level 4.1 Red Blood Count 5.15 Red Cell Distribution Width 21.7 H Sodium Level 154 H Total Bilirubin 0.6 Total Protein 5.1 L White Blood Count 8.1 Medications Medications Current Medications Ondansetron HCl (Zofran Inj) 4 mg Q6H PRN IV NAUSEA AND/OR VOMITING; Start at 12:00 Nitroglycerin (Nitroglycerin (Sl Tab) 0.4 Mg) 1 tab Q5M PRN SL CHEST PAIN; Start 06/26/16 at 12:00 Acetaminophen (Tylenol Supp) 650 mg Q4H PRN [place] PAIN LEVEL 1-3 OR FEVER Last administered on 07/01/16t 19:57; Admin Dose 650 MG; Start 06/26/16 at 12:00 Morphine Sulfate (morphine) 2 mg Q4H PRN IV PAIN LEVEL 7-10; Start 06/26/16 at 12:00 Lorazepam 1 mg 1 mg Q2H PRN IV ANXIETY Last administered on 07/11/16 15:38; Admin Dose 1 MG; Start 06/26/16 at 12:00 Cefepime HCl (Maxipime 1gm/50 ml (Pmx)) 50 ml @ 100 mls/hr Q12 IVPB Last administered on 07/12/16 08:59; Admin Dose 100 MLS/HR; Start 06/26/16 at 15:00 IV Flush (NS 10 ml) 10 ml PRN PRN IV IV PROTOCOL; Start 06/27/16 at 16:30 Metoprolol Tartrate 25 mg 25 mg BID PO Last administered on 07/12/16 08:58; Admin Dose 25 MG; Start 06/28/16 at 21:00 Fentanyl/Dextrose (D5W) 100 ml @ 0 mls/hr TITRATE IV Last administered on 05:34; Admin Dose 10 MLS/HR; Start 06/29/16 at 15:30 Nystatin (Nystatin Susp) 5 ml TID PO Last administered on 07/12/16 08:58; Admin Dose 5 ML; Start 06/30/16 at 21:00 Hydralazine HCl (Apresoline) 10 mg Q8 PO Last administered on 07/11/16 21:56; Admin Dose 10 MG; Start 07/01/16 at 14:00 Pantoprazole (Protonix Iv) 40 mg BID@06,18 IV Last administered on 07/12/16 05 :11; Admin Dose 40 MG; Start 07/07/16 at 06:00 Enoxaparin Sodium 90 mg 90 mg Q12 SC Last administered on 07/12/16 09:00; Admin Dose 90 MG; Start 07/09/16 at 21:00; Status Future hold Bumetanide/ Dextrose (Bumex/D5W) 25 ml @ 50 mls/hr Q6 IV Last administered on 05:11; Admin Dose 50 MLS/HR; Start 07/11/16 at 12:00 SEVERO STUBBS Jul 12, 2016 09:59
--- NOTE | 2016-07-12 10:05 | CONS ---
Date/Time of Note Date/Time of Note DATE: 07/12/16 TIME: 10:00 Assessment/Plan Assessment/Plan Chief Complaint/Hosp Course 1. acute renal failure superimposed on CKD . renal function is stable , some component of cardiorenal syndrome . He was in negative fluid balance yesterday , however sodium went up . Will stop Bumex dose for now . 2. 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 CT surgery says that he is not a surgical candidate at this time . 3. CHF , with peripheral edema , edema is decreasing 4. hepatitis C with elevated liver enzymes 5. respiratory failure , ventilator dependent , weening from ventilator is being attempted . 6. hypokalemia , potassium is being corrected 7. hypernatremia ,sodium is higher , increase water flushes in G tube add D5W . Problems: Consultation Date/Type/Reason Admit Date/Time Jun 26, 2016 at 11:39 Type of Consultation: Cardiology Referring Provider: ASAD DAS MD, [facility] 24 HR Interval Summary Free Text/Dictation He is in the ICU intubated on a ventilator , he rouses to verbal stimuli . Exam/Review of Systems Vital Signs Vitals Vital Signs Date Time Temp Pulse Resp B/P Pulse Ox O2 Delivery O2 Flow Rate FiO2 07/12/16 09:31 108 16 100 30 07/12/16 09:00 100/57 Mechanical Ventilator 07/12/16 08:00 97.8 Intake and Output 07/11/16 07/11/16 07/12/16 15:00 23:00 07:00 Intake Total 240.0 ml 234 ml 220 ml Output Total 775 ml 645 ml 440 ml Balance -535.0 ml -411 ml -220 ml Exam Constitutional: non-verbal Respiratory: clear to auscultation, diminished breath sounds Cardiovascular: murmurs/extra sounds, regular rate and rhythm Extremities: edema Results Result Diagram: 07/12/16 0515 07/12/1615 Results 24 hrs Laboratory Tests Test 07/12/16 05:15 Alanine Aminotransferase (ALT/SGPT) 59 Albumin 2.3 L Albumin/Globulin Ratio 0.82 Alkaline Phosphatase 59 Anion Gap 14 Aspartate Amino Transf (AST/SGOT) 76 H Basophils # 0.0 Basophils % 0.1 Blood Morphology Comment Blood Urea Nitrogen 53 H Calcium Level 8.1 L Carbon Dioxide Level 33 H Chloride Level 111 H Creatinine 1.13 Direct Bilirubin 0.00 Eosinophils # 0.0 Eosinophils % 0.5 Globulin 2.80 Glucose Level 91 Hematocrit 39.4 L Hemoglobin 12.1 L Indirect Bilirubin 0.6 Lymphocytes # 1.5 Lymphocytes % 18.0 Mean Corpuscular Hemoglobin 23.6 L Mean Corpuscular Hemoglobin Concent 30.8 L Mean Corpuscular Volume 76.5 L Mean Platelet Volume 11.3 H Monocytes # 0.5 Monocytes % 6.0 Neutrophils # 6.1 Neutrophils % 75.4 Nucleated Red Blood Cells # 0.0 Nucleated Red Blood Cells % 0.0 Platelet Count 187 Potassium Level 4.1 Red Blood Count 5.15 Red Cell Distribution Width 21.7 H Sodium Level 154 H Total Bilirubin 0.6 Total Protein 5.1 L White Blood Count 8.1 Medications Medications Current Medications Ondansetron HCl (Zofran Inj) 4 mg Q6H PRN IV NAUSEA AND/OR VOMITING; Start at 12:00 Nitroglycerin (Nitroglycerin (Sl Tab) 0.4 Mg) 1 tab Q5M PRN SL CHEST PAIN; Start 06/26/16 at 12:00 Acetaminophen (Tylenol Supp) 650 mg Q4H PRN [place] PAIN LEVEL 1-3 OR FEVER Last administered on 07/01/16 19:57; Admin Dose 650 MG; Start 06/26/16 at 12:00 Morphine Sulfate (morphine) 2 mg Q4H PRN IV PAIN LEVEL 7-10; Start 06/26/16 at 12:00 Lorazepam 1 mg 1 mg Q2H PRN IV ANXIETY Last administered on 07/11/16 15:38; Admin Dose 1 MG; Start 06/26/16 at 12:00 Cefepime HCl (Maxipime 1gm/50 ml (Pmx)) 50 ml @ 100 mls/hr Q12 IVPB Last administered on 07/12/16 08:59; Admin Dose 100 MLS/HR; Start 06/26/16 at 15:00 IV Flush (NS 10 ml) 10 ml PRN PRN IV IV PROTOCOL; Start 06/27/16 at 16:30 Metoprolol Tartrate 25 mg 25 mg BID PO Last administered on 07/12/16 08:58; Admin Dose 25 MG; Start 06/28/16 at 21:00 Fentanyl/Dextrose (D5W) 100 ml @ 0 mls/hr TITRATE IV Last administered on 05:34; Admin Dose 10 MLS/HR; Start 06/29/16 at 15:30 Nystatin (Nystatin Susp) 5 ml TID PO Last administered on 07/12/16 08:58; Admin Dose 5 ML; Start 06/30/16 at 21:00 Hydralazine HCl (Apresoline) 10 mg Q8 PO Last administered on 07/11/16 21:56; Admin Dose 10 MG; Start 07/01/16 at 14:00 Pantoprazole (Protonix Iv) 40 mg BID@06,18 IV Last administered on 07/12/16 05 :11; Admin Dose 40 MG; Start 07/07/16 at 06:00 Enoxaparin Sodium 90 mg 90 mg Q12 SC Last administered on 07/12/16 09:00; Admin Dose 90 MG; Start 07/09/16 at 21:00; Status Future hold Dextrose (D5W) 1,000 ml @ 100 mls/hr Q10H IV ; Start 07/12/16 at 10:00; Status CRESENCIO ALAMO MD Jul 12, 2016 10:05
[2016-07-12] MEDS: DEXTROSE 5% 1,000 ML IV SCH ×2 (10:13→21:01)
--- NOTE | 2016-07-12 10:15 | CONS ---
Date/Time of Note Date/Time of Note DATE: 07/12/16 TIME: 10:14 Consult Date/Type/Reason Admit Date/Time Jun 26, 2016 at 11:39 Type of Consultation: pulmonary Ordering Provider: ASAD DAS MD, [facility] Subjective Patient remains intubated sedated on mechanical ventilation Status post PEG tube placement Currently hemodynamically stable Objective Vital Signs Date Time Temp Pulse Resp B/P Pulse Ox O2 Delivery O2 Flow Rate FiO2 07/12/16 09:31 108 16 100 30 07/12/16 09:00 100/57 Mechanical Ventilator 07/12/16 08:00 97.8 Intake and Output 07/11/16 07/11/16 07/12/16 15:00 23:00 07:00 Intake Total 240.0 ml 234 ml 220 ml Output Total 775 ml 645 ml 440 ml Balance -535.0 ml -411 ml -220 ml PHYSICAL EXAMINATION GENERAL: Chronically ill-appearing gentleman comfortable at rest on mechanical ventilation VITAL SIGNS: see below. HEENT: Pupils equal, round, and reactive to light. Dry mucous membranes CARDIAC: S1, S2, CHEST: Diminished air entry bilaterally. ABDOMEN: Mildly distended. Bowel sounds present PEG tube in place EXTREMITIES: No cyanosis, clubbing edema +1 NEUROLOGIC: Generalized weakness unable to assess Results/Medications Result Diagram: 07/12/1615 07/12/16 0515 Results 24 hrs Laboratory Tests Test 07/12/16 05:15 Alanine Aminotransferase (ALT/SGPT) 59 Albumin 2.3 L Albumin/Globulin Ratio 0.82 Alkaline Phosphatase 59 Anion Gap 14 Aspartate Amino Transf (AST/SGOT) 76 H Basophils # 0.0 Basophils % 0.1 Blood Morphology Comment Blood Urea Nitrogen 53 H Calcium Level 8.1 L Carbon Dioxide Level 33 H Chloride Level 111 H Creatinine 1.13 Direct Bilirubin 0.00 Eosinophils # 0.0 Eosinophils % 0.5 Globulin 2.80 Glucose Level 91 Hematocrit 39.4 L Hemoglobin 12.1 L Indirect Bilirubin 0.6 Lymphocytes # 1.5 Lymphocytes % 18.0 Mean Corpuscular Hemoglobin 23.6 L Mean Corpuscular Hemoglobin Concent 30.8 L Mean Corpuscular Volume 76.5 L Mean Platelet Volume 11.3 H Monocytes # 0.5 Monocytes % 6.0 Neutrophils # 6.1 Neutrophils % 75.4 Nucleated Red Blood Cells # 0.0 Nucleated Red Blood Cells % 0.0 Platelet Count 187 Potassium Level 4.1 Red Blood Count 5.15 Red Cell Distribution Width 21.7 H Sodium Level 154 H Total Bilirubin 0.6 Total Protein 5.1 L White Blood Count 8.1 Medications Current Medications Ondansetron HCl (Zofran Inj) 4 mg Q6H PRN IV NAUSEA AND/OR VOMITING; Start at 12:00 Nitroglycerin (Nitroglycerin (Sl Tab) 0.4 Mg) 1 tab Q5M PRN SL CHEST PAIN; Start 06/26/16 at 12:00 Acetaminophen (Tylenol Supp) 650 mg Q4H PRN [place] PAIN LEVEL 1-3 OR FEVER Last administered on 07/01/16 19:57; Admin Dose 650 MG; Start 06/26/16 at 12:00 Morphine Sulfate (morphine) 2 mg Q4H PRN IV PAIN LEVEL 7-10; Start 06/26/16 at 12:00 Lorazepam 1 mg 1 mg Q2H PRN IV ANXIETY Last administered on 07/11/16 15:38; Admin Dose 1 MG; Start 06/26/16 at 12:00 Cefepime HCl (Maxipime 1gm/50 ml (Pmx)) 50 ml @ 100 mls/hr Q12 IVPB Last administered on 07/12/16 08:59; Admin Dose 100 MLS/HR; Start 06/26/16 at 15:00 IV Flush (NS 10 ml) 10 ml PRN PRN IV IV PROTOCOL; Start 06/27/16 at 16:30 Metoprolol Tartrate 25 mg 25 mg BID PO Last administered on 07/12/16 08:58; Admin Dose 25 MG; Start 06/28/16 at 21:00 Fentanyl/Dextrose (D5W) 100 ml @ 0 mls/hr TITRATE IV Last administered on 05:34; Admin Dose 10 MLS/HR; Start 06/29/16 at 15:30 Nystatin (Nystatin Susp) 5 ml TID PO Last administered on 07/12/16 08:58; Admin Dose 5 ML; Start 06/30/16 at 21:00 Hydralazine HCl (Apresoline) 10 mg Q8 PO Last administered on 07/11/16 21:56; Admin Dose 10 MG; Start 07/01/16 at 14:00 Pantoprazole (Protonix Iv) 40 mg BID@06,18 IV Last administered on 07/12/16 05 :11; Admin Dose 40 MG; Start 07/07/16 at 06:00 Enoxaparin Sodium 90 mg 90 mg Q12 SC Last administered on 07/12/16 09:00; Admin Dose 90 MG; Start 07/09/16 at 21:00; Status Future hold Dextrose (D5W) 1,000 ml @ 100 mls/hr Q10H IV Last administered on 07/12/16 10 :13; Admin Dose 100 MLS/HR; Start 07/12/16 at 10:00 Assessment/Plan Chief Complaint/Hosp Course IMPRESSION AND PLAN: 1. Hypoxemic respiratory failure. Secondary to congestive cardiac failure 2. Likely ventilator associated pneumonia 3. Bacterial endocarditis with valvular heart disease. 4. History of prolonged and recent intravenous drug abuse. 5. History of pulmonary embolus. 6. Renal insufficiency The patient will require: 1. Continued mechanical ventilation. Pending tracheostomy 2. Diuresis if tolerated. 3. Broad-spectrum antibiotics. 4. DVT and GI prophylaxis. 5. Continue tube feeding per GI Disposition Family agree to proceed with tracheostomy Problems: [facility] DAS MD, [facility] Jul 12, 2016 10:15
--- NOTE | 2016-07-12 13:47 | CONS ---
Date/Time of Note Date/Time of Note DATE: 07/12/16 TIME: 13:43 Assessment/Plan Assessment/Plan Additional Assessment/Plan Microcytic anemia: * continue protonix BID * monitor H/H, transfuse if hgb < 8 g/dL. Pt has been given IV iron as well. Transaminitis - 2/2 to sepsis, or possible to viral hepatitis given his IVDU history. Currently transaminase stable * HCV pos, HCV RNA 9, 017,009 * Recommend outpatient follow-up with learning center instructor for HCV treatment Dysphagia * Hold for residual greater than 150mL. * IMPRESSION: Uneventful percutaneous endoscopic gastrostomy tube placement with placement of Ethiopian 20 gastrostomy tube. * Nutrition recommends Nutren Pulmonary @ 45 ml/hr. Flushes per MD. TF + propofol = 1829 kcals, 73 g pro, 845 ml free h2o (24 kcals, 1 g pro/kg IBW). Encephalopathy * ammonia WNL, likely 2/2 to Hepatitis C Shortness of breath - hypoxemic respiratory failure - multifactorial - heart failure acute on chronic - Vent dependent - intubated. * Has not been able to pass CPAP trials the last few days / Will proceed with trach / CTS contacted Right popliteal thrombus * Lovenox resumed / no thrombus on recent LE USS PE * on full dose anticoagulation with lovenox Sepsis severe 2/2 to pneumonia * follow ID recs CHF * diastolic dysfunction acute on chronic - EF recent shows 40%, D shaped left ventricle * f/u cardiology Further recommendations depend on clinical course Patient seen in collaboration with Dr. Bradley Consultation Date/Type/Reason Admit Date/Time Jun 26, 2016 at 11:39 Type of Consultation: GI Referring Provider: ASAD DAS MD, [facility] 24 HR Interval Summary Free Text/Dictation Successful EGD + PEG Tube feed at 30 with minimal residual Exam/Review of Systems Vital Signs Vitals Vital Signs Date Time Temp Pulse Resp B/P Pulse Ox O2 Delivery O2 Flow Rate FiO2 07/12/16 13:13 95 16 100 30 07/12/16 11:00 96/58 Mechanical Ventilator 07/12/16 08:00 97.8 Intake and Output 07/11/16 07/11/16 07/12/16 15:00 23:00 07:00 Intake Total 240.0 ml 234 ml 220 ml Output Total 775 ml 645 ml 440 ml Balance -535.0 ml -411 ml -220 ml Exam Constitutional: other (will open eyes to name), No alert Psych: other (unable to assess) Head: atraumatic, normocephalic Eyes: PERRL, No icteric ENMT: intubated Respiratory: diminished breath sounds, No labored breathing, No wheezing Cardiovascular: murmurs/extra sounds (3/6 systolic), No regular rate and rhythm (tachycardia) Gastrointestinal: bowel sounds, non-tender, other (NGT feeds), soft Genitourinary - Male: other (mild scrotal swelling) Extremities: pitting pedal edema (2-3+ bilaterally) Neurological: other (sedated) Skin: other (multiple tattos) Results Result Diagram: 07/12/1651407/12/1615 Results 24 hrs Laboratory Tests Test 07/12/16 05:15 Alanine Aminotransferase (ALT/SGPT) 59 Albumin 2.3 L Albumin/Globulin Ratio 0.82 Alkaline Phosphatase 59 Anion Gap 14 Aspartate Amino Transf (AST/SGOT) 76 H Basophils # 0.0 Basophils % 0.1 Blood Morphology Comment Blood Urea Nitrogen 53 H Calcium Level 8.1 L Carbon Dioxide Level 33 H Chloride Level 111 H Creatinine 1.13 Direct Bilirubin 0.00 Eosinophils # 0.0 Eosinophils % 0.5 Globulin 2.80 Glucose Level 91 Hematocrit 39.4 L Hemoglobin 12.1 L Indirect Bilirubin 0.6 Lymphocytes # 1.5 Lymphocytes % 18.0 Mean Corpuscular Hemoglobin 23.6 L Mean Corpuscular Hemoglobin Concent 30.8 L Mean Corpuscular Volume 76.5 L Mean Platelet Volume 11.3 H Monocytes # 0.5 Monocytes % 6.0 Neutrophils # 6.1 Neutrophils % 75.4 Nucleated Red Blood Cells # 0.0 Nucleated Red Blood Cells % 0.0 Platelet Count 187 Potassium Level 4.1 Red Blood Count 5.15 Red Cell Distribution Width 21.7 H Sodium Level 154 H Total Bilirubin 0.6 Total Protein 5.1 L White Blood Count 8.1 Medications Medications Current Medications Ondansetron HCl (Zofran Inj) 4 mg Q6H PRN IV NAUSEA AND/OR VOMITING; Start at 12:00 Nitroglycerin (Nitroglycerin (Sl Tab) 0.4 Mg) 1 tab Q5M PRN SL CHEST PAIN; Start 06/26/16 at 12:00 Acetaminophen (Tylenol Supp) 650 mg Q4H PRN [place] PAIN LEVEL 1-3 OR FEVER Last administered on 07/01/16 19:57; Admin Dose 650 MG; Start 06/26/16 at 12:00 Morphine Sulfate (morphine) 2 mg Q4H PRN IV PAIN LEVEL 7-10; Start 06/26/16 at 12:00 Lorazepam 1 mg 1 mg Q2H PRN IV ANXIETY Last administered on 07/11/16 15:38; Admin Dose 1 MG; Start 06/26/16 at 12:00 Cefepime HCl (Maxipime 1gm/50 ml (Pmx)) 50 ml @ 100 mls/hr Q12 IVPB Last administered on 07/12/16 08:59; Admin Dose 100 MLS/HR; Start 06/26/16 at 15:00 IV Flush (NS 10 ml) 10 ml PRN PRN IV IV PROTOCOL; Start 06/27/16 at 16:30 Metoprolol Tartrate 25 mg 25 mg BID PO Last administered on 07/12/16 08:58; Admin Dose 25 MG; Start 06/28/16 at 21:00 Fentanyl/Dextrose (D5W) 100 ml @ 0 mls/hr TITRATE IV Last administered on 13:32; Admin Dose 100 MLS/HR; Start 06/29/16 at 15:30 Nystatin (Nystatin Susp) 5 ml TID PO Last administered on 07/12/16 13:20; Admin Dose 5 ML; Start 06/30/16 at 21:00 Hydralazine HCl (Apresoline) 10 mg Q8 PO Last administered on 07/11/16 21:56; Admin Dose 10 MG; Start 07/01/16 at 14:00 Pantoprazole (Protonix Iv) 40 mg BID@06,18 IV Last administered on 07/12/16 05 :11; Admin Dose 40 MG; Start 07/07/16 at 06:00 Enoxaparin Sodium 90 mg 90 mg Q12 SC Last administered on 07/12/16 09:00; Admin Dose 90 MG; Start 07/09/16 at 21:00; Status Future Hold Dextrose (D5W) 1,000 ml @ 100 mls/hr Q10H IV Last administered on 07/12/16 10 :13; Admin Dose 100 MLS/HR; Start 07/12/16 at 10:00 DARIUSZ GARZA Jul 12, 2016 13:47
[2016-07-12] MEDS: CEFTRIAXONE 2 GM/50 ML (PMX) 50 ML IVPB SCH (15:39)
--- NOTE | 2016-07-12 15:50 | PN ---
DATE: 07/12/2016 INFECTIOUS DISEASE PROGRESS NOTE SUBJECTIVE: No acute events. The patient is lying comfortably in bed. No fevers. Vital signs sta ble. WBC 8.1, no shift, no bands. BUN 53, creatinine 1.13. ANTIMICROBIALS: The patient remains on Cefepime. PHYSICAL EXAMINATION: GENERAL: This is a chronically ill-appearing, middle-aged man who is lying comfortably in bed. HEENT: Head atraumatic, normocephalic. Sclerae anicteric. Buccal mucosa dry. NECK: Supple, trachea midline. CHEST: Rise symmetrical. Breath sounds diminished to bases. HEART: S1, S2. ABDOMEN: Soft. Bowel tones present. EXTREMITIES: Bilateral edema. ASSESSMENT: 1. Acute respiratory failure. 2. Pulmonary edema. 3. Severe cardiomyopathy. 4. Aortic and mitral valve endocarditis. 5. History of intravenous drug abuse. 6. Status post acute renal failure. PLAN: The patient remains stable, status post PEG placement. We are going to change cefepime to Ervin ephin. Continue present care. Await for tracheostomy placement. Follow cardiothoracic surgery ayleen mmendations. Dictated By: RAYMOND HER COMPUTER TECHNICAL SUPPORT SPECIALIST for JULIO CESAR AGUILAR MD NI/NTS Conf#: [id number] DID#: [id number]
--- NOTE | 2016-07-12 18:27 | PN ---
Date/Time of Note Date/Time of Note DATE: 07/12/16 TIME: 18:26 Assessment/Plan Lines/Catheters IV Catheter Type (from Nrs): PICC Line Merino in Place (from Nrs): Yes Assessment/Plan Chief Complaint/Hosp Course IMPRESSION: 1. Endocarditis involving aortic and mitral valve. 2. Aortic regurgitation. 3. Mitral regurgitation. 4. Cardiomyopathy with diminished ejection fraction. 5. Renal failure. 6. History of drug use. 7. Elevation of the transaminases. 8. Coagulopathy. RECOMMENDATIONS: This patient is not a candidate to undergo surgery at the present time; too high risk for surgical repair. Please continue antibiotics. Pt DNR possible trach Discussed with the nursing staff. and the mother continue ABX plan for tracheostomy on Tomorrow Problems: Subjective 24 Hr Interval Summary Constitutional: improved Pain Control: mild Exam/Review of Systems Vital Signs Vitals Vital Signs Date Time Temp Pulse Resp B/P Pulse Ox O2 Delivery O2 Flow Rate FiO2 07/12/16 18:00 117 16 100/64 100 Mechanical Ventilator 07/12/16 17:50 30 07/12/16 16:00 98.4 Intake and Output 07/11/16 07/11/16 07/12/16 14:59 22:59 06:59 Intake Total 270.0 ml 231.5 ml 220 ml Output Total 525 ml 895 ml 455 ml Balance -255.0 ml -663.5 ml -235 ml Exam Neck: non-tender, supple Respiratory: clear to auscultation, normal air movement Cardiovascular: nl pulses, regular rate and rhythm Gastrointestinal: nl liver, spleen, non-tender, soft Results Result Diagram: 07/12/16 0515 07/12/16 1500 KARI ZAMAN MD Jul 12, 2016 18:27
[2016-07-13] VITALS (100 sets, daily range): BP systolic 93–117; BP diastolic 51–73; PULSE 90–131; RESP 16–26
[2016-07-13 05:51] LABS: ALBUMIN 2.7 g/dl (3.3-4.9)
[2016-07-13 05:52] LABS: POTASSIUM 5.8 mmol/L (3.5-5.1)
[2016-07-13 05:54] LABS: ALBUMIN/GLOBULIN RATIO 0.87; BILIRUBIN,INDIRECT 0.5 mg/dl (0-1.1); BILIRUBIN,TOTAL 0.5 mg/dl (0.2-1.3); CREATININE 1.9 mg/dl (0.61-1.24); TOTAL PROTEIN 5.8 g/dl (6.1-8.1)
[2016-07-13 05:55] LABS: CALCIUM 8.1 mg/dl (8.4-10.2); MAGNESIUM 2.4 mg/dl (1.7-2.5); PHOSPHORUS 6.4 mg/dl (2.5-4.9)
[2016-07-13] MEDS: POTASSIUM CHLORIDE 20 MEQ POWDER FOR ORAL SOLN GTB SCH (06:32)
[2016-07-13] MEDS: PANTOPRAZOLE 40 MG INJ IV SCH ×2 (06:32→17:17)
[2016-07-13] MEDS: DEXTROSE 5% 1,000 ML IV SCH (07:41)
[2016-07-13] MEDS: FENTAnyl 1,000 MCG in DEXTROSE 5% 80 ML IV SCH ×2 (07:43→18:41)
[2016-07-13] MEDS: morphine 2 MG INJ IV PRN ×2 (08:17→14:46)
[2016-07-13 08:21] LABS: BASOPHILS % 0.4 % (0.0-2.0); EOSINOPHILS % 0.4 % (0.0-7.0); HEMATOCRIT 46.3 % (42.0-52.0); LYMPHOCYTES % 18.1 % (15.0-51.0); MEAN CORPUSCULAR HEMOGLOBIN 23.7 pg (29.0-33.0); MEAN CORPUSCULAR HGB CONC 30.2 g/dl (32.0-37.0); MEAN CORPUSCULAR VOLUME 78.3 fl (82.0-101.0); MEAN PLATELET VOLUME 13.4 fl (7.4-10.4); MONOCYTE # 0.9 10^3/ul (0.3-0.9); MONOCYTES % 7.9 % (0.0-11.0); NEUTROPHIL # 8.2 10^3/ul (1.6-7.5); NEUTROPHILS % 73.2 % (39.0-77.0); RED BLOOD COUNT 5.92 10^6/ul (4.70-6.10); RED CELL DISTRIBUTION WIDTH 21.9 % (11.5-14.5); UNCORRECTED WBC 11.1 10^3/ul (4.8-10.8); WHITE BLOOD COUNT 11.1 10^3/ul (4.8-10.8)
[2016-07-13 08:24] LABS: CONDITION 1; LH ANALYZER COMMENTS 1; NUCLEATED RED BLOOD CELLS # 0.2 10^3/ul (0.0-0.0); PLATELET COUNT 184 10^3/UL (140-440); SUSPECT 1
[2016-07-13] MEDS: METOPROLOL 25 MG TAB PO SCH ×2 (09:00→21:31)
[2016-07-13] MEDS: NYSTATIN SUSP 5 ML CUP PO SCH ×3 (09:15→21:30)
--- NOTE | 2016-07-13 10:59 | CONS ---
Date/Time of Note Date/Time of Note DATE: 07/13/16 TIME: 10:58 Consult Date/Type/Reason Admit Date/Time Jun 26, 2016 at 11:39 Type of Consultation: pulmonary Ordering Provider: ASAD DAS MD, [facility] Subjective Patient comfortable on mechanical ventilation pending tracheostomy Objective Vital Signs Date Time Temp Pulse Resp B/P Pulse Ox O2 Delivery O2 Flow Rate FiO2 07/13/16 09:00 105 16 98/55 99 07/13/16 07:40 30 07/13/16 07:30 99.5 Mechanical Ventilator Intake and Output 07/12/16 07/12/16 07/13/16 15:00 23:00 07:00 Intake Total 1260 ml 1005 ml 1160 ml Output Total 430 ml 295 ml 260 ml Balance 830 ml 710 ml 900 ml PHYSICAL EXAMINATION GENERAL: Chronically ill-appearing gentleman comfortable at rest on mechanical ventilation VITAL SIGNS: see below. HEENT: Pupils equal, round, and reactive to light. Dry mucous membranes CARDIAC: S1, S2, CHEST: Diminished air entry bilaterally. ABDOMEN: Mildly distended. Bowel sounds present PEG tube in place EXTREMITIES: No cyanosis, clubbing edema +1 NEUROLOGIC: Generalized weakness unable to assess Results/Medications Result Diagram: 07/13/16 0400 07/13/16 0400 Results 24 hrs Laboratory Tests Test 07/12/16 15:00 07/13/16 04:00 Potassium Level 4.9 5.8 H Alanine Aminotransferase (ALT/SGPT) 56 Albumin 2.7 L Albumin/Globulin Ratio 0.87 Alkaline Phosphatase 68 Anion Gap 22 #H Aspartate Amino Transf (AST/SGOT) 84 H Basophils # 0.0 Basophils % 0.4 Blood Morphology Comment Blood Urea Nitrogen 63 H Calcium Level 8.1 L Carbon Dioxide Level 25 Chloride Level 108 Creatinine 1.90 H Direct Bilirubin 0.00 Eosinophils # 0.0 Eosinophils % 0.4 Globulin 3.10 Glucose Level 112 Hematocrit 46.3 Hemoglobin 14.0 Indirect Bilirubin 0.5 Lymphocytes # 2.0 Lymphocytes % 18.1 Magnesium Level 2.4 Mean Corpuscular Hemoglobin 23.7 L Mean Corpuscular Hemoglobin Concent 30.2 L Mean Corpuscular Volume 78.3 L Mean Platelet Volume 13.4 H Monocytes # 0.9 Monocytes % 7.9 Neutrophils # 8.2 H Neutrophils % 73.2 Nucleated Red Blood Cells # 0.2 H Nucleated Red Blood Cells % 2.0 H Phosphorus Level 6.4 H Platelet Count 184 Red Blood Count 5.92 Red Cell Distribution Width 21.9 H Sodium Level 149 H Total Bilirubin 0.5 Total Protein 5.8 L White Blood Count 11.1 #H Medications Current Medications Ondansetron HCl (Zofran Inj) 4 mg Q6H PRN IV NAUSEA AND/OR VOMITING; Start at 12:00 Nitroglycerin (Nitroglycerin (Sl Tab) 0.4 Mg) 1 tab Q5M PRN SL CHEST PAIN; Start 06/26/16 at 12:00 Acetaminophen (Tylenol Supp) 650 mg Q4H PRN [place] PAIN LEVEL 1-3 OR FEVER Last administered on 07/01/16 19:57; Admin Dose 650 MG; Start 06/26/16 at 12:00 Morphine Sulfate (morphine) 2 mg Q4H PRN IV PAIN LEVEL 7-10 Last administered on 07/13/16 08:17; Admin Dose 2 MG; Start 06/26/16 at 12:00 Lorazepam (Ativan) 1 mg Q2H PRN IV ANXIETY Last administered on 07/11/16 15:38 ; Admin Dose 1 MG; Start 06/26/16 at 12:00 IV Flush (NS 10 ml) 10 ml PRN PRN IV IV PROTOCOL; Start 06/27/16 at 16:30 Metoprolol Tartrate 25 mg 25 mg BID PO Last administered on 07/12/16 21:02; Admin Dose 25 MG; Start 06/28/16 at 21:00 Fentanyl/Dextrose (D5W) 100 ml @ 0 mls/hr TITRATE IV Last administered on 07:43; Admin Dose 10 MLS/HR; Start 06/29/16 at 15:30 Nystatin (Nystatin Susp) 5 ml TID PO Last administered on 07/13/16 09:15; Admin Dose 5 ML; Start 06/30/16 at 21:00 Hydralazine HCl (Apresoline) 10 mg Q8 PO Last administered on 07/13/16 06:33; Admin Dose 10 MG; Start 07/01/16 at 14:00 Pantoprazole (Protonix Iv) 40 mg BID@06,18 IV Last administered on 1/13/17at 06 :32; Admin Dose 40 MG; Start 07/07/16 at 06:00 Enoxaparin Sodium 90 mg 90 mg Q12 SC Last administered on 07/12/16 09:00; Admin Dose 90 MG; Start 07/09/16 at 21:00; Status Future Hold Dextrose 1,000 ml @ 100 mls/hr Q10H IV Last administered on 07/13/16 07:41; Admin Dose 100 MLS/HR; Start 07/12/16 at 10:00 Ceftriaxone Sodium (Rocephin) 50 ml @ 100 mls/hr Q24H IVPB Last administered on 07/12/16 15:39; Admin Dose 100 MLS/HR; Start 07/12/16 at 14:30 Assessment/Plan Chief Complaint/Hosp Course IMPRESSION AND PLAN: 1. Hypoxemic respiratory failure. Secondary to congestive cardiac failure 2. Likely ventilator associated pneumonia 3. Bacterial endocarditis with valvular heart disease. 4. History of prolonged and recent intravenous drug abuse. 5. History of pulmonary embolus. 6. Renal insufficiency The patient will require: 1. Continued mechanical ventilation. Pending tracheostomy scheduled for this afternoon 2. Diuresis if tolerated. 3. Broad-spectrum antibiotics. 4. DVT and GI prophylaxis. 5. Continue tube feeding per GI Disposition Family agree to proceed with tracheostomy Problems: [facility] DAS MD, [facility] Jul 13, 2016 10:59
--- NOTE | 2016-07-13 11:26 | PN ---
Date/Time of Note Date/Time of Note DATE: 07/13/16 TIME: 11:20 Assessment/Plan VTE Prophylaxis VTE Prophylaxis Intervention: LMWH Lines/Catheters IV Catheter Type (from Nrsg): PICC Line Central line still needed: Yes Urinary Cath still in place: Yes Reason Cath still needed: other (indicate) Assessment/Plan Assessment/Plan 36 yo unfortunate male with a past medical history of Bacterial Endocarditis finished 6 week course of IV antibiotics, Drug abuse, Nicotine abuse, Right popliteal thrombosis, PE (on Eliquis prior to admission), Microcytic anemia, CHF - diastolic, who came for worsening shortness of breath. 1. Shortness of breath - hypoxemic respiratory failure - multifactorial - heart failure acute on chronic - Vent dependent - intubated - trach today 2. Mild SIRS with low grade fever / tachy / leucocytosis: ?From PEG /tube feeds / close monitoring s/p Sepsis - severe 2/2 to pneumonia (HCAP) + endocarditis - tachycardia/ leukocytosis: resolved abx per ID 3. CHF - diastolic dysfunction acute on chronic - EF recent shows 40%, D shaped left ventricle -Ongoing diuresis with Bumex per Nephrology / patient is much improved 4. Hypernatremia - appreciate nephrology consult - f/u renal rec's, free H2O 5. BESSIE - acute on chronic - 2/2 #2 - - nephrology managing / appreciate input 6. Transaminitis - 2/2 to sepsis, monitor trend - much improved 7. PE - on full dose anticoagulation with lovenox 8. Right popliteal thrombus - Lovenox resumed / no thrombus on recent LE USS 9. Microcytic anemia - monitor H/H, transfuse if hgb < 8 g/dL. Pt has been given IV iron as well. 10. GI ppx - IV Protonix BID 11. DVT ppx - heparin 12. DNR / DNI dispo -Continue close ICU care and monitoring -Monitor fever curve and WBC count -Repeat cultures -f/u trach placement -Possible valve replacement surgery in future if more medically stable then critical care time today = 40 min Subjective 24 Hr Interval Summary Free Text/Dictation Patient seen and examined. Nursing reports no acute overnight events. planned for tracheostomy today Intubated and sedated for comfort, but no pressor support. Exam/Review of Systems Vital Signs Vitals Vital Signs Date Time Temp Pulse Resp B/P Pulse Ox O2 Delivery O2 Flow Rate FiO2 07/13/16 09:00 105 16 98/55 99 07/13/16 07:40 30 07/13/16 07:30 99.5 Mechanical Ventilator Intake and Output 07/12/16 07/12/16 07/13/16 14:59 22:59 06:59 Intake Total 880 ml 1250 ml 1200 ml Output Total 440 ml 295 ml 310 ml Balance 440 ml 955 ml 890 ml Exam Constitutional: No alert, No distress, No oriented Head: normocephalic Eyes: PERRL ENMT: intubated Respiratory: diminished breath sounds Cardiovascular: murmurs/extra sounds, regular rate and rhythm Gastrointestinal: bowel sounds, soft Extremities: pitting pedal edema (improving still about 1+- 2) Neurological: lethargic, No nl mental status, No nl speech Skin: other (multiple tattoos) Results Result Diagram: 07/13/16 0400 07/13/16 0400 Results 24 hrs Laboratory Tests Test 07/12/16 15:00 07/13/16 04:00 Potassium Level 4.9 5.8 H Alanine Aminotransferase (ALT/SGPT) 56 Albumin 2.7 L Albumin/Globulin Ratio 0.87 Alkaline Phosphatase 68 Anion Gap 22 #H Aspartate Amino Transf (AST/SGOT) 84 H Basophils # 0.0 Basophils % 0.4 Blood Morphology Comment Blood Urea Nitrogen 63 H Calcium Level 8.1 L Carbon Dioxide Level 25 Chloride Level 108 Creatinine 1.90 H Direct Bilirubin 0.00 Eosinophils # 0.0 Eosinophils % 0.4 Globulin 3.10 Glucose Level 112 Hematocrit 46.3 Hemoglobin 14.0 Indirect Bilirubin 0.5 Lymphocytes # 2.0 Lymphocytes % 18.1 Magnesium Level 2.4 Mean Corpuscular Hemoglobin 23.7 L Mean Corpuscular Hemoglobin Concent 30.2 L Mean Corpuscular Volume 78.3 L Mean Platelet Volume 13.4 H Monocytes # 0.9 Monocytes % 7.9 Neutrophils # 8.2 H Neutrophils % 73.2 Nucleated Red Blood Cells # 0.2 H Nucleated Red Blood Cells % 2.0 H Phosphorus Level 6.4 H Platelet Count 184 Red Blood Count 5.92 Red Cell Distribution Width 21.9 H Sodium Level 149 H Total Bilirubin 0.5 Total Protein 5.8 L White Blood Count 11.1 #H Medications Medications Current Medications Ondansetron HCl (Zofran Inj) 4 mg Q6H PRN IV NAUSEA AND/OR VOMITING; Start at 12:00 Nitroglycerin (Nitroglycerin (Sl Tab) 0.4 Mg) 1 tab Q5M PRN SL CHEST PAIN; Start 06/26/16 at 12:00 Acetaminophen (Tylenol Supp) 650 mg Q4H PRN [place] PAIN LEVEL 1-3 OR FEVER Last administered on 07/01/16 19:57; Admin Dose 650 MG; Start 06/26/16 at 12:00 Morphine Sulfate (morphine) 2 mg Q4H PRN IV PAIN LEVEL 7-10 Last administered on 07/13/16 08:17; Admin Dose 2 MG; Start 06/26/16 at 12:00 Lorazepam (Ativan) 1 mg Q2H PRN IV ANXIETY Last administered on 07/11/16 15:38 ; Admin Dose 1 MG; Start 06/26/16 at 12:00 IV Flush (NS 10 ml) 10 ml PRN PRN IV IV PROTOCOL; Start 06/27/16 at 16:30 Metoprolol Tartrate 25 mg 25 mg BID PO Last administered on 07/12/16 21:02; Admin Dose 25 MG; Start 06/28/16 at 21:00 Fentanyl/Dextrose (D5W) 100 ml @ 0 mls/hr TITRATE IV Last administered on 07:43; Admin Dose 10 MLS/HR; Start 06/29/16 at 15:30 Nystatin (Nystatin Susp) 5 ml TID PO Last administered on 07/13/16 09:15; Admin Dose 5 ML; Start 06/30/16 at 21:00 Hydralazine HCl (Apresoline) 10 mg Q8 PO Last administered on 07/13/16 06:33; Admin Dose 10 MG; Start 07/01/16 at 14:00 Pantoprazole (Protonix Iv) 40 mg BID@06,18 IV Last administered on 07/13/16 06 :32; Admin Dose 40 MG; Start 07/07/16 at 06:00 Enoxaparin Sodium 90 mg 90 mg Q12 SC Last administered on 07/12/16 09:00; Admin Dose 90 MG; Start 07/09/16 at 21:00; Status Future Hold Dextrose 1,000 ml @ 100 mls/hr Q10H IV Last administered on 07/13/16 07:41; Admin Dose 100 MLS/HR; Start 07/12/16 at 10:00 Ceftriaxone Sodium (Rocephin) 50 ml @ 100 mls/hr Q24H IVPB Last administered on 07/12/16 15:39; Admin Dose 100 MLS/HR; Start 07/12/16 at 14:30 AIYANA GIANG Jul 13, 2016 11:26
--- NOTE | 2016-07-13 13:44 | CONS ---
Date/Time of Note Date/Time of Note DATE: 07/13/16 TIME: 13:40 Assessment/Plan Assessment/Plan Chief Complaint/Hosp Course IMPRESSION: 1. Congestive heart failure exacerbation, systolic, acute on chronic with last known EF approximately 40% by echo May 2016. 2. Aortic regurgitation, moderate to severe with possible ongoing vegetation by most recent echo May 2016. 3. Mitral regurgitation, moderate to severe. 4. History of recent endocarditis status post 6-week course of antibiotics. 5. Cardiomyopathy with decreased left ventricular ejection fraction last approximately 40% by echo 06/14/2016. 6. Coagulopathy-resolved 7. Renal failure-acutely worsened 9. Increased LFTs-improving 10. Increased BNP. 12. Mild anemia. 13.Resp failure s/p intubation 14. 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 -Low dose BB/hydralazine as tolerated only following BP/HR closely -Lovenox held -Per CT surgery not a candidate for valve replacement at this time due to high risk -F/U blood cultures which have negative to date -Continue abx's -Trach pnding Problems: Consultation Date/Type/Reason Admit Date/Time Jun 26, 2016 at 11:39 Initial Consult Date 06/27/2016 Type of Consultation: Cardiology Reason for Consultation CHF/AR/MR Referring Provider: ASAD DAS MD, [facility] Exam/Review of Systems Vital Signs Vitals Vital Signs Date Time Temp Pulse Resp B/P Pulse Ox O2 Delivery O2 Flow Rate FiO2 07/13/16 12:00 101 07/13/16 11:15 16 98/59 99 07/13/16 11:15 30 07/13/16 07:30 99.5 Mechanical Ventilator Intake and Output 07/12/16 07/12/16 07/13/16 15:00 23:00 07:00 Intake Total 1260 ml 1005 ml 1160 ml Output Total 430 ml 295 ml 260 ml Balance 830 ml 710 ml 900 ml Exam Review of Systems: CONSTITUTIONAL: No fevers, chills. PULMONARY: intubated CARDIOVASCULAR: No obvious chest pain/palpitations GASTROINTESTINAL: No nausea/vomiting. GENITOURINARY: No hematuria/dysuria. MUSCULOSKELETAL: No obvious myagias/arthalgias. PSYCHIATRIC: No documented depression. NEUROLOGIC: sedated Constitutional: other (sedated) Psych: no complaints Head: normocephalic ENMT: mucosa pink and moist Neck: jvd (9 cm water), supple Respiratory: diminished breath sounds (at bases/B) Cardiovascular: regular rate and rhythm Gastrointestinal: non-tender, soft Musculoskeletal: muscle tone (normal) Extremities: edema (none) Neurological: confused, other Results Result Diagram: 07/13/16 0400 07/13/16 0400 Results 24 hrs Laboratory Tests Test 07/12/16 15:00 07/13/16 04:00 Potassium Level 4.9 5.8 H Alanine Aminotransferase (ALT/SGPT) 56 Albumin 2.7 L Albumin/Globulin Ratio 0.87 Alkaline Phosphatase 68 Anion Gap 22 #H Aspartate Amino Transf (AST/SGOT) 84 H Basophils # 0.0 Basophils % 0.4 Blood Morphology Comment Blood Urea Nitrogen 63 H Calcium Level 8.1 L Carbon Dioxide Level 25 Chloride Level 108 Creatinine 1.90 H Direct Bilirubin 0.00 Eosinophils # 0.0 Eosinophils % 0.4 Globulin 3.10 Glucose Level 112 Hematocrit 46.3 Hemoglobin 14.0 Indirect Bilirubin 0.5 Lymphocytes # 2.0 Lymphocytes % 18.1 Magnesium Level 2.4 Mean Corpuscular Hemoglobin 23.7 L Mean Corpuscular Hemoglobin Concent 30.2 L Mean Corpuscular Volume 78.3 L Mean Platelet Volume 13.4 H Monocytes # 0.9 Monocytes % 7.9 Neutrophils # 8.2 H Neutrophils % 73.2 Nucleated Red Blood Cells # 0.2 H Nucleated Red Blood Cells % 2.0 H Phosphorus Level 6.4 H Platelet Count 184 Red Blood Count 5.92 Red Cell Distribution Width 21.9 H Sodium Level 149 H Total Bilirubin 0.5 Total Protein 5.8 L White Blood Count 11.1 #H Medications Medications Current Medications Ondansetron HCl (Zofran Inj) 4 mg Q6H PRN IV NAUSEA AND/OR VOMITING; Start at 12:00 Nitroglycerin (Nitroglycerin (Sl Tab) 0.4 Mg) 1 tab Q5M PRN SL CHEST PAIN; Start 06/26/16 at 12:00 Acetaminophen (Tylenol Supp) 650 mg Q4H PRN [place] PAIN LEVEL 1-3 OR FEVER Last administered on 07/01/16t 19:57; Admin Dose 650 MG; Start 06/26/16 at 12:00 Morphine Sulfate (morphine) 2 mg Q4H PRN IV PAIN LEVEL 7-10 Last administered on 07/13/16 08:17; Admin Dose 2 MG; Start 06/26/16 at 12:00 Lorazepam (Ativan) 1 mg Q2H PRN IV ANXIETY Last administered on 07/11/16 15:38 ; Admin Dose 1 MG; Start 06/26/16 at 12:00 IV Flush (NS 10 ml) 10 ml PRN PRN IV IV PROTOCOL; Start 06/27/16 at 16:30 Metoprolol Tartrate 25 mg 25 mg BID PO Last administered on 07/12/16 21:02; Admin Dose 25 MG; Start 06/28/16 at 21:00 Fentanyl/Dextrose (D5W) 100 ml @ 0 mls/hr TITRATE IV Last administered on 07:43; Admin Dose 10 MLS/HR; Start 06/29/16 at 15:30 Nystatin (Nystatin Susp) 5 ml TID PO Last administered on 07/13/16 09:15; Admin Dose 5 ML; Start 06/30/16 at 21:00 Hydralazine HCl (Apresoline) 10 mg Q8 PO Last administered on 07/13/16 06:33; Admin Dose 10 MG; Start 07/01/16 at 14:00 Pantoprazole (Protonix Iv) 40 mg BID@06,18 IV Last administered on 07/13/16 06 :32; Admin Dose 40 MG; Start 07/07/16 at 06:00 Enoxaparin Sodium 90 mg 90 mg Q12 SC Last administered on 07/12/16 09:00; Admin Dose 90 MG; Start 07/09/16 at 21:00; Status Future Hold Dextrose 1,000 ml @ 100 mls/hr Q10H IV Last administered on 07/13/16 07:41; Admin Dose 100 MLS/HR; Start 07/12/16 at 10:00 Ceftriaxone Sodium (Rocephin) 50 ml @ 100 mls/hr Q24H IVPB Last administered on 07/12/16 15:39; Admin Dose 100 MLS/HR; Start 07/12/16 at 14:30 SEVERO STUBBS Jul 13, 2016 13:44
--- NOTE | 2016-07-13 14:29 | CONS ---
Date/Time of Note Date/Time of Note DATE: 07/13/16 TIME: 14:23 Assessment/Plan Assessment/Plan Chief Complaint/Hosp Course 1. acute renal failure superimposed on CKD . his serum creatinine is higher today , some component of cardiorenal syndrome . He was in positive fluid balance yesterday . Bumex was stopped because of high serum sodium . He was getting IV D5W to correct serum sodium . . 2. 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 CT surgery says that he is not a surgical candidate at this time . 3. CHF , with peripheral edema , edema is decreasing 4. hepatitis C with elevated liver enzymes 5. respiratory failure , ventilator dependent , weening from ventilator is being attempted . 6. hyperkalemia , he is now off potassium . 7. hypernatremia ,sodium is correcting , he is on water flushes . Problems: Consultation Date/Type/Reason Admit Date/Time Jun 26, 2016 at 11:39 Type of Consultation: Cardiology Referring Provider: ASAD DAS MD, [facility] 24 HR Interval Summary Free Text/Dictation He is in the ICU , intubated on ventilator . Subjective hx not possible: pt non-verbal Exam/Review of Systems Vital Signs Vitals Vital Signs Date Time Temp Pulse Resp B/P Pulse Ox O2 Delivery O2 Flow Rate FiO2 07/13/16 12:00 101 07/13/16 11:15 16 98/59 99 07/13/16 11:15 30 07/13/16 07:30 99.5 Mechanical Ventilator Intake and Output 07/12/16 07/12/16 07/13/16 15:00 23:00 07:00 Intake Total 1260 ml 1005 ml 1160 ml Output Total 430 ml 295 ml 260 ml Balance 830 ml 710 ml 900 ml Exam Constitutional: non-verbal Respiratory: clear to auscultation, diminished breath sounds Cardiovascular: murmurs/extra sounds, regular rate and rhythm Gastrointestinal: soft Extremities: edema Results Result Diagram: 07/13/16 0400 07/13/16 0400 Results 24 hrs Laboratory Tests Test 07/12/16 15:00 07/13/16 04:00 Potassium Level 4.9 5.8 H Alanine Aminotransferase (ALT/SGPT) 56 Albumin 2.7 L Albumin/Globulin Ratio 0.87 Alkaline Phosphatase 68 Anion Gap 22 #H Aspartate Amino Transf (AST/SGOT) 84 H Basophils # 0.0 Basophils % 0.4 Blood Morphology Comment Blood Urea Nitrogen 63 H Calcium Level 8.1 L Carbon Dioxide Level 25 Chloride Level 108 Creatinine 1.90 H Direct Bilirubin 0.00 Eosinophils # 0.0 Eosinophils % 0.4 Globulin 3.10 Glucose Level 112 Hematocrit 46.3 Hemoglobin 14.0 Indirect Bilirubin 0.5 Lymphocytes # 2.0 Lymphocytes % 18.1 Magnesium Level 2.4 Mean Corpuscular Hemoglobin 23.7 L Mean Corpuscular Hemoglobin Concent 30.2 L Mean Corpuscular Volume 78.3 L Mean Platelet Volume 13.4 H Monocytes # 0.9 Monocytes % 7.9 Neutrophils # 8.2 H Neutrophils % 73.2 Nucleated Red Blood Cells # 0.2 H Nucleated Red Blood Cells % 2.0 H Phosphorus Level 6.4 H Platelet Count 184 Red Blood Count 5.92 Red Cell Distribution Width 21.9 H Sodium Level 149 H Total Bilirubin 0.5 Total Protein 5.8 L White Blood Count 11.1 #H Medications Medications Current Medications Ondansetron HCl (Zofran Inj) 4 mg Q6H PRN IV NAUSEA AND/OR VOMITING; Start at 12:00 Nitroglycerin (Nitroglycerin (Sl Tab) 0.4 Mg) 1 tab Q5M PRN SL CHEST PAIN; Start 06/26/16 at 12:00 Acetaminophen (Tylenol Supp) 650 mg Q4H PRN [place] PAIN LEVEL 1-3 OR FEVER Last administered on 07/01/16 19:57; Admin Dose 650 MG; Start 06/26/16 at 12:00 Morphine Sulfate (morphine) 2 mg Q4H PRN IV PAIN LEVEL 7-10 Last administered on 07/13/16 08:17; Admin Dose 2 MG; Start 06/26/16 at 12:00 Lorazepam (Ativan) 1 mg Q2H PRN IV ANXIETY Last administered on 07/11/16 15:38 ; Admin Dose 1 MG; Start 06/26/16 at 12:00 IV Flush (NS 10 ml) 10 ml PRN PRN IV IV PROTOCOL; Start 06/27/16 at 16:30 Metoprolol Tartrate 25 mg 25 mg BID PO Last administered on 07/12/16 21:02; Admin Dose 25 MG; Start 06/28/16 at 21:00 Fentanyl/Dextrose (D5W) 100 ml @ 0 mls/hr TITRATE IV Last administered on 07:43; Admin Dose 10 MLS/HR; Start 06/29/16 at 15:30 Nystatin (Nystatin Susp) 5 ml TID PO Last administered on 07/13/16 13:56; Admin Dose 5 ML; Start 06/30/16 at 21:00 Hydralazine HCl (Apresoline) 10 mg Q8 PO Last administered on 07/13/16 06:33; Admin Dose 10 MG; Start 07/01/16 at 14:00 Pantoprazole (Protonix Iv) 40 mg BID@06,18 IV Last administered on 07/13/16 06 :32; Admin Dose 40 MG; Start 07/07/16 at 06:00 Enoxaparin Sodium 90 mg 90 mg Q12 SC Last administered on 07/12/16 09:00; Admin Dose 90 MG; Start 07/09/16 at 21:00; Status Future Hold Ceftriaxone Sodium (Rocephin) 50 ml @ 100 mls/hr Q24H IVPB Last administered on 07/12/16 15:39; Admin Dose 100 MLS/HR; Start 07/12/16 at 14:30 CRESENCIO CASTILLO MD Jul 13, 2016 14:29
[2016-07-13] MEDS: CEFTRIAXONE 2 GM/50 ML (PMX) 50 ML IVPB SCH (14:36)
--- NOTE | 2016-07-13 15:17 | CONS ---
Date/Time of Note Date/Time of Note DATE: 07/13/16 TIME: 15:16 Assessment/Plan Assessment/Plan Additional Assessment/Plan Microcytic anemia: * continue protonix BID * monitor H/H, transfuse if hgb < 8 g/dL. Pt has been given IV iron as well. Transaminitis - 2/2 to sepsis, or possible to viral hepatitis given his IVDU history. Currently transaminase stable * HCV pos, HCV RNA 9, 017,009 * Recommend outpatient follow-up with human resources recruiter for HCV treatment Dysphagia * Hold for residual greater than 150mL. * IMPRESSION: Uneventful percutaneous endoscopic gastrostomy tube placement with placement of [place] 20 gastrostomy tube. * Nutrition recommends Nutren Pulmonary @ 45 ml/hr. Flushes per MD. TF + propofol = 1829 kcals, 73 g pro, 845 ml free h2o (24 kcals, 1 g pro/kg IBW). Encephalopathy * ammonia WNL, likely 2/2 to Hepatitis C Shortness of breath - hypoxemic respiratory failure - multifactorial - heart failure acute on chronic - Vent dependent - intubated. * Will proceed with trach / CTS contacted Right popliteal thrombus * Lovenox resumed / no thrombus on recent LE USS PE * on full dose anticoagulation with lovenox Sepsis severe 2/2 to pneumonia * follow ID recs CHF * diastolic dysfunction acute on chronic - EF recent shows 40%, D shaped left ventricle * f/u cardiology Further recommendations depend on clinical course Patient seen in collaboration with Dr. Bradley Consultation Date/Type/Reason Admit Date/Time Jun 26, 2016 at 11:39 Type of Consultation: Gastroenterology Referring Provider: ASAD DAS MD, [facility] 24 HR Interval Summary Free Text/Dictation Tracheostomy plan today Hemoglobin stable No reports of high residual when G-tube was running Exam/Review of Systems Vital Signs Vitals Vital Signs Date Time Temp Pulse Resp B/P Pulse Ox O2 Delivery O2 Flow Rate FiO2 07/13/16 12:00 101 07/13/16 11:15 16 98/59 99 07/13/16 11:15 30 07/13/16 07:30 99.5 Mechanical Ventilator Intake and Output 07/12/16 07/12/16 07/13/16 15:00 23:00 07:00 Intake Total 1260 ml 1005 ml 1160 ml Output Total 430 ml 295 ml 260 ml Balance 830 ml 710 ml 900 ml Results Result Diagram: 07/13/16 0400 07/13/16 0400 Results 24 hrs Laboratory Tests Test 07/13/16 04:00 Alanine Aminotransferase (ALT/SGPT) 56 Albumin 2.7 L Albumin/Globulin Ratio 0.87 Alkaline Phosphatase 68 Anion Gap 22 #H Aspartate Amino Transf (AST/SGOT) 84 H Basophils # 0.0 Basophils % 0.4 Blood Morphology Comment Blood Urea Nitrogen 63 H Calcium Level 8.1 L Carbon Dioxide Level 25 Chloride Level 108 Creatinine 1.90 H Direct Bilirubin 0.00 Eosinophils # 0.0 Eosinophils % 0.4 Globulin 3.10 Glucose Level 112 Hematocrit 46.3 Hemoglobin 14.0 Indirect Bilirubin 0.5 Lymphocytes # 2.0 Lymphocytes % 18.1 Magnesium Level 2.4 Mean Corpuscular Hemoglobin 23.7 L Mean Corpuscular Hemoglobin Concent 30.2 L Mean Corpuscular Volume 78.3 L Mean Platelet Volume 13.4 H Monocytes # 0.9 Monocytes % 7.9 Neutrophils # 8.2 H Neutrophils % 73.2 Nucleated Red Blood Cells # 0.2 H Nucleated Red Blood Cells % 2.0 H Phosphorus Level 6.4 H Platelet Count 184 Potassium Level 5.8 H Red Blood Count 5.92 Red Cell Distribution Width 21.9 H Sodium Level 149 H Total Bilirubin 0.5 Total Protein 5.8 L White Blood Count 11.1 #H Medications Medications Current Medications Ondansetron HCl (Zofran Inj) 4 mg Q6H PRN IV NAUSEA AND/OR VOMITING; Start at 12:00 Nitroglycerin (Nitroglycerin (Sl Tab) 0.4 Mg) 1 tab Q5M PRN SL CHEST PAIN; Start 06/26/16 at 12:00 Acetaminophen (Tylenol Supp) 650 mg Q4H PRN [place] PAIN LEVEL 1-3 OR FEVER Last administered on 07/01/16 19:57; Admin Dose 650 MG; Start 06/26/16 at 12:00 Morphine Sulfate (morphine) 2 mg Q4H PRN IV PAIN LEVEL 7-10 Last administered on 07/13/16 14:46; Admin Dose 2 MG; Start 06/26/16 at 12:00 Lorazepam (Ativan) 1 mg Q2H PRN IV ANXIETY Last administered on 07/11/16 15:38 ; Admin Dose 1 MG; Start 06/26/16 at 12:00 IV Flush (NS 10 ml) 10 ml PRN PRN IV IV PROTOCOL; Start 06/27/16 at 16:30 Metoprolol Tartrate 25 mg 25 mg BID PO Last administered on 07/12/16 21:02; Admin Dose 25 MG; Start 06/28/16 at 21:00 Fentanyl/Dextrose (D5W) 100 ml @ 0 mls/hr TITRATE IV Last administered on 07:43; Admin Dose 10 MLS/HR; Start 06/29/16 at 15:30 Nystatin (Nystatin Susp) 5 ml TID PO Last administered on 07/13/16 13:56; Admin Dose 5 ML; Start 06/30/16 at 21:00 Hydralazine HCl (Apresoline) 10 mg Q8 PO Last administered on 07/13/16 06:33; Admin Dose 10 MG; Start 07/01/16 at 14:00 Pantoprazole (Protonix Iv) 40 mg BID@06,18 IV Last administered on 07/13/16 06 :32; Admin Dose 40 MG; Start 07/07/16 at 06:00 Enoxaparin Sodium 90 mg 90 mg Q12 SC Last administered on 07/12/16 09:00; Admin Dose 90 MG; Start 07/09/16 at 21:00; Status Future Hold Ceftriaxone Sodium (Rocephin) 50 ml @ 100 mls/hr Q24H IVPB Last administered on 07/13/16 14:36; Admin Dose 100 MLS/HR; Start 07/12/16 at 14:30 DARIUSZ GARZA Jul 13, 2016 15:16
[2016-07-13 15:29] LABS: POTASSIUM 4.7 mmol/L (3.5-5.1)
[2016-07-13 15:31] LABS: CREATININE 1.6 mg/dl (0.61-1.24)
[2016-07-13 15:32] LABS: CALCIUM 7.8 mg/dl (8.4-10.2)
[2016-07-13] MEDS ORDERED: LIDOCAINE 1%/EPI 30 ML INJ ONE (17:16)
[2016-07-13] MEDS ORDERED: MIDAZOLAM 1 MG/ML 2 ML INJ ONE (18:05)
[2016-07-13] MEDS ORDERED: PROPOFOL 20 ML ONE (18:05)
[2016-07-13] MEDS ORDERED: PHENYLephrine (100 MCG/ML) 5ML SYG ONE (18:06)
--- NOTE | 2016-07-13 19:13 | CONS ---
Date/Time of Note Date/Time of Note DATE: 07/13/16 TIME: 19:12 Consult Date/Type/Reason Admit Date/Time Jun 26, 2016 at 11:39 Type of Consultation: ID Ordering Provider: ASAD DAS MD, [facility] Subjective no acute changes, comfortable on vent, no fevers Objective Vital Signs Date Time Temp Pulse Resp B/P Pulse Ox O2 Delivery O2 Flow Rate FiO2 07/13/16 19:00 99 98/51 100 07/13/16 17:45 16 30 07/13/16 16:00 99.1 07/13/16 07:30 Mechanical Ventilator Intake and Output 07/12/16 07/12/16 07/13/16 15:00 23:00 07:00 Intake Total 1260 ml 1005 ml 1160 ml Output Total 430 ml 295 ml 260 ml Balance 830 ml 710 ml 900 ml Results/Medications Result Diagram: 07/13/16 0400 07/13/16 1435 Results 24 hrs Laboratory Tests Test 07/13/16 04:00 07/13/16 14:35 Alanine Aminotransferase (ALT/SGPT) 56 Albumin 2.7 L Albumin/Globulin Ratio 0.87 Alkaline Phosphatase 68 Anion Gap 22 #H 16 Aspartate Amino Transf (AST/SGOT) 84 H Basophils # 0.0 Basophils % 0.4 Blood Morphology Comment Blood Urea Nitrogen 63 H 66 H Calcium Level 8.1 L 7.8 L Carbon Dioxide Level 25 28 Chloride Level 108 108 Creatinine 1.90 H 1.60 H Direct Bilirubin 0.00 Eosinophils # 0.0 Eosinophils % 0.4 Globulin 3.10 Glucose Level 112 111 Hematocrit 46.3 Hemoglobin 14.0 Indirect Bilirubin 0.5 Lymphocytes # 2.0 Lymphocytes % 18.1 Magnesium Level 2.4 Mean Corpuscular Hemoglobin 23.7 L Mean Corpuscular Hemoglobin Concent 30.2 L Mean Corpuscular Volume 78.3 L Mean Platelet Volume 13.4 H Monocytes # 0.9 Monocytes % 7.9 Neutrophils # 8.2 H Neutrophils % 73.2 Nucleated Red Blood Cells # 0.2 H Nucleated Red Blood Cells % 2.0 H Phosphorus Level 6.4 H Platelet Count 184 Potassium Level 5.8 H 4.7 Red Blood Count 5.92 Red Cell Distribution Width 21.9 H Sodium Level 149 H 147 H Total Bilirubin 0.5 Total Protein 5.8 L White Blood Count 11.1 #H Medications Current Medications Ondansetron HCl (Zofran Inj) 4 mg Q6H PRN IV NAUSEA AND/OR VOMITING; Start at 12:00 Nitroglycerin (Nitroglycerin (Sl Tab) 0.4 Mg) 1 tab Q5M PRN SL CHEST PAIN; Start 06/26/16 at 12:00 Acetaminophen (Tylenol Supp) 650 mg Q4H PRN [place] PAIN LEVEL 1-3 OR FEVER Last administered on 07/01/16 19:57; Admin Dose 650 MG; Start 06/26/16 at 12:00 Morphine Sulfate (morphine) 2 mg Q4H PRN IV PAIN LEVEL 7-10 Last administered on 07/13/16 14:46; Admin Dose 2 MG; Start 06/26/16 at 12:00 Lorazepam (Ativan) 1 mg Q2H PRN IV ANXIETY Last administered on 07/11/16 15:38 ; Admin Dose 1 MG; Start 06/26/16 at 12:00 IV Flush (NS 10 ml) 10 ml PRN PRN IV IV PROTOCOL; Start 06/27/16 at 16:30 Metoprolol Tartrate 25 mg 25 mg BID PO Last administered on 07/12/16 21:02; Admin Dose 25 MG; Start 06/28/16 at 21:00 Fentanyl/Dextrose (D5W) 100 ml @ 0 mls/hr TITRATE IV Last administered on 18:41; Admin Dose 10 MLS/HR; Start 06/29/16 at 15:30 Nystatin (Nystatin Susp) 5 ml TID PO Last administered on 07/13/16 13:56; Admin Dose 5 ML; Start 06/30/16 at 21:00 Hydralazine HCl (Apresoline) 10 mg Q8 PO Last administered on 07/13/16 06:33; Admin Dose 10 MG; Start 07/01/16 at 14:00 Pantoprazole (Protonix Iv) 40 mg BID@06,18 IV Last administered on 07/13/16 17 :17; Admin Dose 40 MG; Start 07/07/16 at 06:00 Enoxaparin Sodium 90 mg 90 mg Q12 SC Last administered on 07/12/16 09:00; Admin Dose 90 MG; Start 07/09/16 at 21:00; Status Future Hold Ceftriaxone Sodium (Rocephin) 50 ml @ 100 mls/hr Q24H IVPB Last administered on 07/13/16t 14:36; Admin Dose 100 MLS/HR; Start 07/12/16 at 14:30 Assessment/Plan Chief Complaint/Hosp Course ANTIMICROBIALS: Rocephin. Indwelling: ETT, PEG, Merino, PICC 06/27 PHYSICAL EXAMINATION: GENERAL: This is a chronically ill-appearing, middle-aged man who is lying comfortably in bed. HEENT: Head atraumatic, normocephalic. Sclerae anicteric. Buccal mucosa dry. NECK: Supple, trachea midline. CHEST: Rise symmetrical. Breath sounds diminished to bases. HEART: S1, S2. ABDOMEN: Soft. Bowel tones present. EXTREMITIES: Bilateral edema. ASSESSMENT: 1. Acute respiratory failure. 2. Pulmonary edema. 3. Severe cardiomyopathy. 4. Aortic and mitral valve endocarditis. 5. History of intravenous drug abuse. 6. Status post acute renal failure. PLAN: The patient remains stable, continue abx, pending trach. FEROZ mother at bedside Problems: RAYMOND HER NP Jul 13, 2016 19:13
[2016-07-14] VITALS (45 sets, daily range): BP systolic 87–113; BP diastolic 47–69; PULSE 87–124; RESP 16–23
[2016-07-14] MEDS: FENTAnyl 1,000 MCG in DEXTROSE 5% 80 ML IV SCH (03:01)
--- NOTE | 2016-07-14 04:31 | OPR ---
DATE OF OPERATION: PREOPERATIVE DIAGNOSIS: Respiratory failure. POSTOPERATIVE DIAGNOSIS: Respiratory failure. OPERATION PERFORMED: Tracheostomy. SURGEON: Vic Guido MD ANESTHESIA: Local. CONSENT: Risks, benefits, complications, alternative therapies explained to the patient and the [facility], consent obtained. OPERATIVE TECHNIQUE: The patient was placed in supine position, prepped and draped in usual sterile fashion, 1% lidocaine was used throughout the operation for local anesthesia. A timeout was called . I made a 1 cm incision 1 fingerbreadth superior to the sternal notch. Incision was taken down to the subcutaneous tissue, which was then opened using Metzenbaum scissors. The subcutaneous tissue and trachea were dilated using progressively larger dilators. Endotracheal tube was removed. An 8 cuffed tracheostomy tube advanced into the trachea, secured to skin using 2-0 silk sutures on 4 trac h tie. Adequate end-tidal CO2 was obtained. The patient tolerated procedure well. Dictated By: VIC DESOUZA/BRANDO Conf#: [id number] DID#: [id number]
[2016-07-14] MEDS: LORAZEPAM 2 MG INJ IV PRN (04:48)
[2016-07-14] MEDS: PANTOPRAZOLE 40 MG INJ IV SCH (05:37)
[2016-07-14 06:23] LABS: BASOPHILS % 0.4 % (0.0-2.0); EOSINOPHILS # 0.1 10^3/ul (0.0-0.5); EOSINOPHILS % 0.6 % (0.0-7.0); HEMATOCRIT 39.3 % (42.0-52.0); HEMOGLOBIN 12.3 g/dl (14.0-18.0); LYMPHOCYTES # 1.4 10^3/ul (0.8-2.9); LYMPHOCYTES % 13.5 % (15.0-51.0); MEAN CORPUSCULAR HEMOGLOBIN 23.9 pg (29.0-33.0); MEAN CORPUSCULAR HGB CONC 31.4 g/dl (32.0-37.0); MEAN PLATELET VOLUME 12.6 fl (7.4-10.4); MONOCYTE # 0.6 10^3/ul (0.3-0.9); MONOCYTES % 5.7 % (0.0-11.0); NEUTROPHIL # 8.3 10^3/ul (1.6-7.5); NEUTROPHILS % 79.8 % (39.0-77.0); PLATELET COUNT 182 10^3/UL (140-440); RED BLOOD COUNT 5.17 10^6/ul (4.70-6.10); RED CELL DISTRIBUTION WIDTH 21.8 % (11.5-14.5); UNCORRECTED WBC 10.5 10^3/ul (4.8-10.8); WHITE BLOOD COUNT 10.5 10^3/ul (4.8-10.8)
[2016-07-14 06:49] LABS: CONDITION 1; LH ANALYZER COMMENTS 1; SUSPECT 1
[2016-07-14 07:42] LABS: ALBUMIN/GLOBULIN RATIO 0.8
[2016-07-14 07:45] LABS: BILIRUBIN,INDIRECT 0.5 mg/dl (0-1.1); BILIRUBIN,TOTAL 0.5 mg/dl (0.2-1.3); CALCIUM 8.2 mg/dl (8.4-10.2); CREATININE 1.32 mg/dl (0.61-1.24); POTASSIUM 4.3 mmol/L (3.5-5.1); TOTAL PROTEIN 4.7 g/dl (6.1-8.1)
[2016-07-14 07:46] LABS: ALBUMIN 2.1 g/dl (3.3-4.9)
[2016-07-14] MEDS: METOPROLOL 25 MG TAB PO SCH ×2 (09:00→21:05)
--- NOTE | 2016-07-14 09:08 | PN ---
Date/Time of Note Date/Time of Note DATE: 07/14/16 TIME: 08:52 Assessment/Plan VTE Prophylaxis VTE Prophylaxis Intervention: other (eliquis) Lines/Catheters IV Catheter Type (from Nrsg): PICC Line Central line still needed: Yes Urinary Cath still in place: Yes Reason Cath still needed: other (indicate) Assessment/Plan Assessment/Plan 36 yo unfortunate male with a past medical history of Bacterial Endocarditis finished 6 week course of IV antibiotics, Drug abuse, Nicotine abuse, Right popliteal thrombosis, PE (on Eliquis prior to admission), Microcytic anemia, CHF - diastolic, who came for worsening shortness of breath. 1. hypoxemic respiratory failure - - multifactorial - heart failure acute on chronic - still Vent dependent - trach 2. Mild SIRS with low grade fever / tachy / leucocytosis: improved / trach aspirate showed some heath / defer to ID s/p Sepsis - severe 2/2 to pneumonia (HCAP) + endocarditis - tachycardia/ leukocytosis: resolved abx per ID 3. CHF - diastolic dysfunction acute on chronic - EF recent shows 40%, D shaped left ventricle -Ongoing diuresis with Bumex per Nephrology / patient is much improved 4. Hypernatremia - appreciate nephrology consult - f/u renal rec's, free H2O 5. BESSIE - acute on chronic - 2/2 #2 - patient seems to be at baseline now - nephrology managing / appreciate input 6. Transaminitis - 2/2 to sepsis, monitor trend - much improved 7. PE - Switched to eliquis as no further intervention planned 8. Right popliteal thrombus - eliquis / no thrombus on recent LE USS 9. Microcytic anemia - monitor H/H, transfuse if hgb < 8 g/dL. Pt has been given IV iron as well. 10. GI ppx - IV Protonix BID / ?change to lansoprazole re: PEG 11. DVT ppx -eliquis 12. DNR / DNI 13. S/p PEG placement for dysphagia / new trach dispo -transfer to telemetry front bed and then probable Salazar versus subacute when cleared by pulm -Monitor fever curve and WBC count -Possible valve replacement surgery in future if more medically stable then critical care time today = 40 min Subjective 24 Hr Interval Summary Free Text/Dictation Patient seen and examined. trach done yesterday almost completely off sedation Gastrointestinal: other Exam/Review of Systems Vital Signs Vitals Vital Signs Date Time Temp Pulse Resp B/P Pulse Ox O2 Delivery O2 Flow Rate FiO2 07/14/16 08:30 30 07/14/16 08:00 91 07/14/16 08:00 94/56 100 07/14/16 07:30 97.2 07/14/16 05:07 16 07/13/16 07:30 Mechanical Ventilator Intake and Output 07/13/16 07/13/16 07/14/16 15:00 23:00 07:00 Intake Total 290 ml 370 ml 60 ml Output Total 380 ml 535 ml 330 ml Balance -90 ml -165 ml -270 ml Exam Constitutional: No alert, No non-verbal, No oriented Eyes: PERRL Neck: other (trach to vent) Respiratory: diminished breath sounds Cardiovascular: murmurs/extra sounds Gastrointestinal: bowel sounds, other (PEG), soft Extremities: pitting pedal edema Neurological: No nl mental status, No nl speech, No nl strength Results Result Diagram: 07/14/16 0530 07/14/16 0530 Results 24 hrs Laboratory Tests Test 07/13/16 14:35 07/14/16 05:30 Anion Gap 16 18 H Blood Urea Nitrogen 66 H 66 H Calcium Level 7.8 L 8.2 L Carbon Dioxide Level 28 27 Chloride Level 108 108 Creatinine 1.60 H 1.32 H Glucose Level 111 111 Potassium Level 4.7 4.3 Sodium Level 147 H 149 H Alanine Aminotransferase (ALT/SGPT) 63 Albumin 2.1 L Albumin/Globulin Ratio 0.80 Alkaline Phosphatase 51 Aspartate Amino Transf (AST/SGOT) 99 H Basophils # 0.0 Basophils % 0.4 Blood Morphology Comment Direct Bilirubin 0.00 Eosinophils # 0.1 Eosinophils % 0.6 Globulin 2.60 Hematocrit 39.3 L Hemoglobin 12.3 L Indirect Bilirubin 0.5 Lymphocytes # 1.4 Lymphocytes % 13.5 L Mean Corpuscular Hemoglobin 23.9 L Mean Corpuscular Hemoglobin Concent 31.4 L Mean Corpuscular Volume 76.0 L Mean Platelet Volume 12.6 H Monocytes # 0.6 Monocytes % 5.7 Neutrophils # 8.3 H Neutrophils % 79.8 H Nucleated Red Blood Cells # 0.0 Nucleated Red Blood Cells % 0.0 Platelet Count 182 Red Blood Count 5.17 Red Cell Distribution Width 21.8 H Total Bilirubin 0.5 Total Protein 4.7 #L White Blood Count 10.5 Medications Medications Current Medications Ondansetron HCl (Zofran Inj) 4 mg Q6H PRN IV NAUSEA AND/OR VOMITING; Start at 12:00 Nitroglycerin (Nitroglycerin (Sl Tab) 0.4 Mg) 1 tab Q5M PRN SL CHEST PAIN; Start 06/26/16 at 12:00 Acetaminophen (Tylenol Supp) 650 mg Q4H PRN [place] PAIN LEVEL 1-3 OR FEVER Last administered on 07/01/16 19:57; Admin Dose 650 MG; Start 06/26/16 at 12:00 Morphine Sulfate (morphine) 2 mg Q4H PRN IV PAIN LEVEL 7-10 Last administered on 07/13/16 14:46; Admin Dose 2 MG; Start 06/26/16 at 12:00 Lorazepam (Ativan) 1 mg Q2H PRN IV ANXIETY Last administered on 07/14/16 04:48 ; Admin Dose 1 MG; Start 06/26/16 at 12:00 IV Flush (NS 10 ml) 10 ml PRN PRN IV IV PROTOCOL; Start 06/27/16 at 16:30 Metoprolol Tartrate 25 mg 25 mg BID PO Last administered on 07/13/16 21:31; Admin Dose 25 MG; Start 06/28/16 at 21:00 Fentanyl/Dextrose (D5W) 100 ml @ 0 mls/hr TITRATE IV Last administered on 03:01; Admin Dose 0 MLS/HR; Start 06/29/16 at 15:30 Nystatin (Nystatin Susp) 5 ml TID PO Last administered on 07/13/16 21:30; Admin Dose 5 ML; Start 06/30/16 at 21:00 Hydralazine HCl (Apresoline) 10 mg Q8 PO Last administered on 07/13/16 21:31; Admin Dose 10 MG; Start 07/01/16 at 14:00 Pantoprazole (Protonix Iv) 40 mg BID@06,18 IV Last administered on 07/14/16 05 :37; Admin Dose 40 MG; Start 07/07/16 at 06:00 Enoxaparin Sodium 90 mg 90 mg Q12 SC Last administered on 07/12/16 09:00; Admin Dose 90 MG; Start 07/09/16 at 21:00; Status Future Hold Ceftriaxone Sodium (Rocephin) 50 ml @ 100 mls/hr Q24H IVPB Last administered on 07/13/16t 14:36; Admin Dose 100 MLS/HR; Start 07/12/16 at 14:30 Procedures Procedures DATE OF OPERATION: 07/13/15 PREOPERATIVE DIAGNOSIS: Respiratory failure. POSTOPERATIVE DIAGNOSIS: Respiratory failure. OPERATION PERFORMED: Tracheostomy. SURGEON: Vic Guido MD ANESTHESIA: Local. AIYANA GIANG Jul 14, 2016 09:04
--- NOTE | 2016-07-14 09:53 | CONS ---
Date/Time of Note Date/Time of Note DATE: 07/14/16 TIME: 09:49 Assessment/Plan Assessment/Plan Additional Assessment/Plan 1. Renal hx has improved having stopped diuretics. 2. Hepatitis C with elevated liver enzymes 3. Respiratory failure , ventilator dependent 4. Hypernatremia has increased, will start D5W and not resume diuretics 5. Edema in part sec to low albumin Consultation Date/Type/Reason Admit Date/Time Jun 26, 2016 at 11:39 Initial Consult Date Type of Consultation: ID Referring Provider: ASAD DAS MD, [facility] 24 HR Interval Summary Constitutional: other (Trach in place, on vent, responds to name, family at bedside) Exam/Review of Systems Vital Signs Vitals Vital Signs Date Time Temp Pulse Resp B/P Pulse Ox O2 Delivery O2 Flow Rate FiO2 07/14/16 08:30 30 07/14/16 08:00 91 07/14/16 08:00 94/56 100 07/14/16 07:30 97.2 07/14/16 05:07 16 07/13/16 07:30 Mechanical Ventilator Intake and Output 07/13/16 07/13/16 07/14/16 15:00 23:00 07:00 Intake Total 290 ml 370 ml 60 ml Output Total 380 ml 535 ml 330 ml Balance -90 ml -165 ml -270 ml Exam Neck: No jvd Respiratory: diminished breath sounds Cardiovascular: regular rate and rhythm Gastrointestinal: soft Extremities: edema (pedal edema present) Results Result Diagram: 07/14/16 0530 07/14/16 0530 Results 24 hrs Laboratory Tests Test 07/13/16 14:35 07/14/16 05:30 Anion Gap 16 18 H Blood Urea Nitrogen 66 H 66 H Calcium Level 7.8 L 8.2 L Carbon Dioxide Level 28 27 Chloride Level 108 108 Creatinine 1.60 H 1.32 H Glucose Level 111 111 Potassium Level 4.7 4.3 Sodium Level 147 H 149 H Alanine Aminotransferase (ALT/SGPT) 63 Albumin 2.1 L Albumin/Globulin Ratio 0.80 Alkaline Phosphatase 51 Aspartate Amino Transf (AST/SGOT) 99 H Basophils # 0.0 Basophils % 0.4 Blood Morphology Comment Direct Bilirubin 0.00 Eosinophils # 0.1 Eosinophils % 0.6 Globulin 2.60 Hematocrit 39.3 L Hemoglobin 12.3 L Indirect Bilirubin 0.5 Lymphocytes # 1.4 Lymphocytes % 13.5 L Mean Corpuscular Hemoglobin 23.9 L Mean Corpuscular Hemoglobin Concent 31.4 L Mean Corpuscular Volume 76.0 L Mean Platelet Volume 12.6 H Monocytes # 0.6 Monocytes % 5.7 Neutrophils # 8.3 H Neutrophils % 79.8 H Nucleated Red Blood Cells # 0.0 Nucleated Red Blood Cells % 0.0 Platelet Count 182 Red Blood Count 5.17 Red Cell Distribution Width 21.8 H Total Bilirubin 0.5 Total Protein 4.7 #L White Blood Count 10.5 Medications Medications Current Medications Ondansetron HCl (Zofran Inj) 4 mg Q6H PRN IV NAUSEA AND/OR VOMITING; Start at 12:00 Nitroglycerin (Nitroglycerin (Sl Tab) 0.4 Mg) 1 tab Q5M PRN SL CHEST PAIN; Start 06/26/16 at 12:00 Acetaminophen (Tylenol Supp) 650 mg Q4H PRN [place] PAIN LEVEL 1-3 OR FEVER Last administered on 07/01/16 19:57; Admin Dose 650 MG; Start 06/26/16 at 12:00 Morphine Sulfate (morphine) 2 mg Q4H PRN IV PAIN LEVEL 7-10 Last administered on 07/13/16 14:46; Admin Dose 2 MG; Start 06/26/16 at 12:00 Lorazepam (Ativan) 1 mg Q2H PRN IV ANXIETY Last administered on 07/14/16 04:48 ; Admin Dose 1 MG; Start 06/26/16 at 12:00 IV Flush (NS 10 ml) 10 ml PRN PRN IV IV PROTOCOL; Start 06/27/16 at 16:30 Metoprolol Tartrate 25 mg 25 mg BID PO Last administered on 07/13/16 21:31; Admin Dose 25 MG; Start 06/28/16 at 21:00 Fentanyl/Dextrose (D5W) 100 ml @ 0 mls/hr TITRATE IV Last administered on 03:01; Admin Dose 0 MLS/HR; Start 06/29/16 at 15:30 Nystatin (Nystatin Susp) 5 ml TID PO Last administered on 07/13/16 21:30; Admin Dose 5 ML; Start 06/30/16 at 21:00 Hydralazine HCl 10 mg 10 mg Q8 PO Last administered on 07/13/16 21:31; Admin Dose 10 MG; Start 07/01/16 at 14:00 Ceftriaxone Sodium (Rocephin) 50 ml @ 100 mls/hr Q24H IVPB Last administered on 07/13/16 14:36; Admin Dose 100 MLS/HR; Start 07/12/16 at 14:30 Apixaban (Eliquis) 10 mg BID PO ; Start 07/14/16 at 09:30; Stop 07/20/16 at 21: 01 Lansoprazole (Prevacid) 30 mg DAILY@06 GTB ; Start 07/15/16 at 06:00 Apixaban (Eliquis) 5 mg BID PO ; Start 07/21/16 at 09:00 TAMMIE GARCIA MD Jul 14, 2016 09:52
[2016-07-14] MEDS: NYSTATIN SUSP 5 ML CUP PO SCH ×3 (09:54→21:03)
--- NOTE | 2016-07-14 09:55 | CONS ---
Date/Time of Note Date/Time of Note DATE: 07/14/16 TIME: 09:42 Assessment/Plan Assessment/Plan Chief Complaint/Hosp Course ID PROGRESS NOTE TOTAL ABX DAY # 3 => Ceftriaxone s/p Vanco IV,Cefepime, Levaquin 24H INTERVAL SUMMARY * Obtunded, responds to painful stimuli, Vented, VSS, no fever, appears comfortable, mom at bedside, no complaints * s/p TRACH placement 07/13/16 * TMax 07/12/16 @ 99.5, WBC normalized PHYSICAL EXAMINATION: GENERAL: 36 yo M, VSS, NAD, Vented HEENT: Unremarkable NECK: New Trach secure, scant secretions CHEST: Rise symmetrical. Scattered coarse BS HEART: NSR on tele ABDOMEN: Soft EXTREMITIES: Warm w/generalized dependent edema x4 SKIN: Multiple tattoos ID ASSESSMENT: 36 yo M w/PMHx IVDU w/(+)HCV, (-)HIV screen admit with: 1. Mild SIRS with low grade fever / tachy / leucocytosis: IMPROVED * s/p Sepsis = RESOLVED 2. Acute hypoxemic respiratory failure = MULTIFACTORIAL -> s/p TRACH 07/13/16 3. Acute CHF exacerbation due to Cardiomyopathy with diminished ejection fraction w/ Aortic & Mitral regurgitation. 4. Aortic and mitral valve vegetations with a history of alpha hemolytic streptococcus septicemia in March 2016. * s/p 6 weeks ABX Rx completed 5. Resolving Pneumonia: Combined aspiration pneumonia vs community-acquired pneumonia on admission => Now concern VAP * Sputum cx (+)C.Albicans, possibly from oral contamination = SCANT 6. Acute renal failure 7. Anemia. 8. Coagulopathy w/R popliteal DVT -> s/p PE on Eliquis 9. Transaminitis 2nd to sepsis on admission INVASIVES: Trach, peg, Merino, PICC line. CURRENT ABX: Ceftriaxone 07/12/16 = #3 s/p Vancomycin IV, Cefepime, Levaquin ID RECOMMENDATIONS: CONTINUE Current ABX PER NOTES: Pending TNS to Med-Surg w/plans for BECKMAN Evaluation . . Problems: Consultation Date/Type/Reason Admit Date/Time Jun 26, 2016 at 11:39 Type of Consultation: ID Referring Provider: ASAD DAS MD, [facility] Exam/Review of Systems Vital Signs Vitals Vital Signs Date Time Temp Pulse Resp B/P Pulse Ox O2 Delivery O2 Flow Rate FiO2 07/14/16 08:30 30 07/14/16 08:00 91 07/14/16 08:00 94/56 100 07/14/16 07:30 97.2 07/14/16 05:07 16 07/13/16 07:30 Mechanical Ventilator Intake and Output 07/13/16 07/13/16 07/14/16 15:00 23:00 07:00 Intake Total 290 ml 370 ml 60 ml Output Total 380 ml 535 ml 330 ml Balance -90 ml -165 ml -270 ml Results Result Diagram: 07/14/16 0530 07/14/16 0530 Results 24 hrs Laboratory Tests Test 07/13/16 14:35 07/14/16 05:30 Anion Gap 16 18 H Blood Urea Nitrogen 66 H 66 H Calcium Level 7.8 L 8.2 L Carbon Dioxide Level 28 27 Chloride Level 108 108 Creatinine 1.60 H 1.32 H Glucose Level 111 111 Potassium Level 4.7 4.3 Sodium Level 147 H 149 H Alanine Aminotransferase (ALT/SGPT) 63 Albumin 2.1 L Albumin/Globulin Ratio 0.80 Alkaline Phosphatase 51 Aspartate Amino Transf (AST/SGOT) 99 H Basophils # 0.0 Basophils % 0.4 Blood Morphology Comment Direct Bilirubin 0.00 Eosinophils # 0.1 Eosinophils % 0.6 Globulin 2.60 Hematocrit 39.3 L Hemoglobin 12.3 L Indirect Bilirubin 0.5 Lymphocytes # 1.4 Lymphocytes % 13.5 L Mean Corpuscular Hemoglobin 23.9 L Mean Corpuscular Hemoglobin Concent 31.4 L Mean Corpuscular Volume 76.0 L Mean Platelet Volume 12.6 H Monocytes # 0.6 Monocytes % 5.7 Neutrophils # 8.3 H Neutrophils % 79.8 H Nucleated Red Blood Cells # 0.0 Nucleated Red Blood Cells % 0.0 Platelet Count 182 Red Blood Count 5.17 Red Cell Distribution Width 21.8 H Total Bilirubin 0.5 Total Protein 4.7 #L White Blood Count 10.5 Medications Medications Current Medications Ondansetron HCl (Zofran Inj) 4 mg Q6H PRN IV NAUSEA AND/OR VOMITING; Start at 12:00 Nitroglycerin (Nitroglycerin (Sl Tab) 0.4 Mg) 1 tab Q5M PRN SL CHEST PAIN; Start 06/26/16 at 12:00 Acetaminophen (Tylenol Supp) 650 mg Q4H PRN [place] PAIN LEVEL 1-3 OR FEVER Last administered on 07/01/16 19:57; Admin Dose 650 MG; Start 06/26/16 at 12:00 Morphine Sulfate (morphine) 2 mg Q4H PRN IV PAIN LEVEL 7-10 Last administered on 07/13/16 14:46; Admin Dose 2 MG; Start 06/26/16 at 12:00 Lorazepam (Ativan) 1 mg Q2H PRN IV ANXIETY Last administered on 07/14/16 04:48 ; Admin Dose 1 MG; Start 06/26/16 at 12:00 IV Flush (NS 10 ml) 10 ml PRN PRN IV IV PROTOCOL; Start 06/27/16 at 16:30 Metoprolol Tartrate 25 mg 25 mg BID PO Last administered on 07/13/16 21:31; Admin Dose 25 MG; Start 06/28/16 at 21:00 Fentanyl/Dextrose (D5W) 100 ml @ 0 mls/hr TITRATE IV Last administered on 03:01; Admin Dose 0 MLS/HR; Start 06/29/16 at 15:30 Nystatin (Nystatin Susp) 5 ml TID PO Last administered on 07/13/16 21:30; Admin Dose 5 ML; Start 06/30/16 at 21:00 Hydralazine HCl 10 mg 10 mg Q8 PO Last administered on 07/13/16 21:31; Admin Dose 10 MG; Start 07/01/16 at 14:00 Ceftriaxone Sodium (Rocephin) 50 ml @ 100 mls/hr Q24H IVPB Last administered on 07/13/16 14:36; Admin Dose 100 MLS/HR; Start 07/12/16 at 14:30 Apixaban (Eliquis) 10 mg BID PO ; Start 07/14/16 at 09:30; Stop 07/20/16 at 21: 01 Lansoprazole (Prevacid) 30 mg DAILY@06 GTB ; Start 07/15/16 at 06:00 Apixaban (Eliquis) 5 mg BID PO ; Start 07/21/16 at 09:00 MARIO MCCAIN NP Jul 14, 2016 09:54
--- NOTE | 2016-07-14 10:04 | CONS ---
Date/Time of Note Date/Time of Note DATE: 07/14/16 TIME: 10:03 Consult Date/Type/Reason Admit Date/Time Jun 26, 2016 at 11:39 Type of Consultation: pulmonary Ordering Provider: ASAD DAS MD, [facility] Subjective Patient is stable post tracheostomy Continues fentanyl drip Remains hemodynamically stable Objective Vital Signs Date Time Temp Pulse Resp B/P Pulse Ox O2 Delivery O2 Flow Rate FiO2 07/14/16 08:30 30 07/14/16 08:00 91 07/14/16 08:00 94/56 100 07/14/16 07:30 97.2 07/14/16 05:07 16 07/13/16 07:30 Mechanical Ventilator Intake and Output 07/13/16 07/13/16 07/14/16 15:00 23:00 07:00 Intake Total 290 ml 370 ml 60 ml Output Total 380 ml 535 ml 330 ml Balance -90 ml -165 ml -270 ml PHYSICAL EXAMINATION GENERAL: Chronically ill-appearing gentleman comfortable at rest on mechanical ventilation VITAL SIGNS: see below. HEENT: Pupils equal, round, and reactive to light. Dry mucous membranes, tracheostomy in place CARDIAC: S1, S2, CHEST: Diminished air entry bilaterally. ABDOMEN: Mildly distended. Bowel sounds present PEG tube in place EXTREMITIES: No cyanosis, clubbing edema +1 NEUROLOGIC: Generalized weakness unable to assess Results/Medications Result Diagram: 07/14/16 0530 07/14/16 0530 Results 24 hrs Laboratory Tests Test 07/13/16 14:35 07/14/16 05:30 Anion Gap 16 18 H Blood Urea Nitrogen 66 H 66 H Calcium Level 7.8 L 8.2 L Carbon Dioxide Level 28 27 Chloride Level 108 108 Creatinine 1.60 H 1.32 H Glucose Level 111 111 Potassium Level 4.7 4.3 Sodium Level 147 H 149 H Alanine Aminotransferase (ALT/SGPT) 63 Albumin 2.1 L Albumin/Globulin Ratio 0.80 Alkaline Phosphatase 51 Aspartate Amino Transf (AST/SGOT) 99 H Basophils # 0.0 Basophils % 0.4 Blood Morphology Comment Direct Bilirubin 0.00 Eosinophils # 0.1 Eosinophils % 0.6 Globulin 2.60 Hematocrit 39.3 L Hemoglobin 12.3 L Indirect Bilirubin 0.5 Lymphocytes # 1.4 Lymphocytes % 13.5 L Mean Corpuscular Hemoglobin 23.9 L Mean Corpuscular Hemoglobin Concent 31.4 L Mean Corpuscular Volume 76.0 L Mean Platelet Volume 12.6 H Monocytes # 0.6 Monocytes % 5.7 Neutrophils # 8.3 H Neutrophils % 79.8 H Nucleated Red Blood Cells # 0.0 Nucleated Red Blood Cells % 0.0 Platelet Count 182 Red Blood Count 5.17 Red Cell Distribution Width 21.8 H Total Bilirubin 0.5 Total Protein 4.7 #L White Blood Count 10.5 Medications Current Medications Ondansetron HCl (Zofran Inj) 4 mg Q6H PRN IV NAUSEA AND/OR VOMITING; Start at 12:00 Nitroglycerin (Nitroglycerin (Sl Tab) 0.4 Mg) 1 tab Q5M PRN SL CHEST PAIN; Start 06/26/16 at 12:00 Acetaminophen (Tylenol Supp) 650 mg Q4H PRN MA PAIN LEVEL 1-3 OR FEVER Last administered on 07/01/16 19:57; Admin Dose 650 MG; Start 06/26/16 at 12:00 Morphine Sulfate (morphine) 2 mg Q4H PRN IV PAIN LEVEL 7-10 Last administered on 07/13/16 14:46; Admin Dose 2 MG; Start 06/26/16 at 12:00 Lorazepam (Ativan) 1 mg Q2H PRN IV ANXIETY Last administered on 07/14/16 04:48 ; Admin Dose 1 MG; Start 06/26/16 at 12:00 IV Flush (NS 10 ml) 10 ml PRN PRN IV IV PROTOCOL; Start 06/27/16 at 16:30 Metoprolol Tartrate 25 mg 25 mg BID PO Last administered on 07/13/16 21:31; Admin Dose 25 MG; Start 06/28/16 at 21:00 Fentanyl/Dextrose (D5W) 100 ml @ 0 mls/hr TITRATE IV Last administered on 03:01; Admin Dose 0 MLS/HR; Start 06/29/16 at 15:30 Nystatin (Nystatin Susp) 5 ml TID PO Last administered on 07/14/16 09:54; Admin Dose 5 ML; Start 06/30/16 at 21:00 Hydralazine HCl 10 mg 10 mg Q8 PO Last administered on 07/13/16 21:31; Admin Dose 10 MG; Start 07/01/16 at 14:00 Ceftriaxone Sodium (Rocephin) 50 ml @ 100 mls/hr Q24H IVPB Last administered on 07/13/16t 14:36; Admin Dose 100 MLS/HR; Start 07/12/16 at 14:30 Apixaban (Eliquis) 10 mg BID PO ; Start 07/14/16 at 09:30; Stop 07/20/16 at 21: 01 Lansoprazole (Prevacid) 30 mg DAILY@06 GTB ; Start 07/15/16 at 06:00 Apixaban 5 mg 5 mg BID PO ; Start 07/21/16 at 09:00 Dextrose (D5W) 1,000 ml @ 100 mls/hr Q10H IV ; Start 07/14/16 at 10:00 Assessment/Plan Chief Complaint/Hosp Course IMPRESSION AND PLAN: 1. Hypoxemic respiratory failure. Secondary to congestive cardiac failure 2. Likely ventilator associated pneumonia 3. Bacterial endocarditis with valvular heart disease. 4. History of prolonged and recent intravenous drug abuse. 5. History of pulmonary embolus. 6. Renal insufficiency The patient will require: 1. Continued mechanical ventilation. Post tracheostomy placement 2. Consider DC diuretics 3. Broad-spectrum antibiotics. 4. DVT and GI prophylaxis. 5. Continue tube feeding per GI Disposition Transfer to telemetry Disposition alf facility Problems: [facility] DAS MD, [facility] Jul 14, 2016 10:04
[2016-07-14] MEDS: APIXABAN 5 MG TABLET PO SCH ×2 (10:31→21:04)
[2016-07-14] MEDS: DEXTROSE 5% 1,000 ML IV SCH ×2 (10:32→22:16)
--- NOTE | 2016-07-14 11:57 | CONS ---
Date/Time of Note Date/Time of Note DATE: 07/14/16 TIME: 11:53 Assessment/Plan Assessment/Plan Chief Complaint/Hosp Course IMPRESSION: 1. Congestive heart failure exacerbation, systolic, acute on chronic with last known EF approximately 40% by echo May 2016. 2. Aortic regurgitation, moderate to severe with possible ongoing vegetation by most recent echo May 2016. 3. Mitral regurgitation, moderate to severe. 4. History of recent endocarditis status post 6-week course of antibiotics. 5. Cardiomyopathy with decreased left ventricular ejection fraction last approximately 40% by echo 06/14/2016. 6. Coagulopathy-resolved 7. Renal failure-slowly improving again 9. Increased LFTs-improving 10. Increased Na 12. Mild anemia. 13.Resp failure s/p trach 14. s/p Code blue 15.DNR 16.dysphagia s/p G tube Recc: -Tele -Continue bumex IVP /follow output/mold washer closely -Low dose BB/hydralazine as tolerated only following BP/HR closely -Now on apixaban -Per CT surgery not a candidate for valve replacement at this time due to high risk -F/U blood cultures -Continue abx's -Follow volume status closely, currently off of bumex -Free water for increased NA Problems: Consultation Date/Type/Reason Admit Date/Time Jun 26, 2016 at 11:39 Initial Consult Date 06/27/2016 Type of Consultation: Cardiology Reason for Consultation CHF/AR/MR Referring Provider: [facility]AS [facility], [facility] Exam/Review of Systems Vital Signs Vitals Vital Signs Date Time Temp Pulse Resp B/P Pulse Ox O2 Delivery O2 Flow Rate FiO2 07/14/16 10:00 98 16 99/61 100 07/14/16 08:30 30 07/14/16 07:30 97.2 07/13/16 07:30 Mechanical Ventilator Intake and Output 07/13/16 07/13/16 07/14/16 15:00 23:00 07:00 Intake Total 290 ml 370 ml 60 ml Output Total 380 ml 535 ml 330 ml Balance -90 ml -165 ml -270 ml Exam Review of Systems: CONSTITUTIONAL: No fevers, chills. PULMONARY: s/p trach CARDIOVASCULAR: No chest pain/palpitations GASTROINTESTINAL: No nausea/vomiting. GENITOURINARY: No hematuria/dysuria. MUSCULOSKELETAL: No obvious myagias/arthalgias. PSYCHIATRIC: The patient denies depression. NEUROLOGIC: Encephalopathy Constitutional: other (sleeping) Neck: other (trached) Respiratory: other (upper airway rhochi) Cardiovascular: regular rate and rhythm Gastrointestinal: non-tender, soft Musculoskeletal: muscle tone (normal) Extremities: pitting pedal edema (bilateral) Neurological: confused Results Result Diagram: 07/14/16 0530 07/14/16 0530 Results 24 hrs Laboratory Tests Test 07/13/16 14:35 07/14/16 05:30 Anion Gap 16 18 H Blood Urea Nitrogen 66 H 66 H Calcium Level 7.8 L 8.2 L Carbon Dioxide Level 28 27 Chloride Level 108 108 Creatinine 1.60 H 1.32 H Glucose Level 111 111 Potassium Level 4.7 4.3 Sodium Level 147 H 149 H Alanine Aminotransferase (ALT/SGPT) 63 Albumin 2.1 L Albumin/Globulin Ratio 0.80 Alkaline Phosphatase 51 Aspartate Amino Transf (AST/SGOT) 99 H Basophils # 0.0 Basophils % 0.4 Blood Morphology Comment Direct Bilirubin 0.00 Eosinophils # 0.1 Eosinophils % 0.6 Globulin 2.60 Hematocrit 39.3 L Hemoglobin 12.3 L Indirect Bilirubin 0.5 Lymphocytes # 1.4 Lymphocytes % 13.5 L Mean Corpuscular Hemoglobin 23.9 L Mean Corpuscular Hemoglobin Concent 31.4 L Mean Corpuscular Volume 76.0 L Mean Platelet Volume 12.6 H Monocytes # 0.6 Monocytes % 5.7 Neutrophils # 8.3 H Neutrophils % 79.8 H Nucleated Red Blood Cells # 0.0 Nucleated Red Blood Cells % 0.0 Platelet Count 182 Red Blood Count 5.17 Red Cell Distribution Width 21.8 H Total Bilirubin 0.5 Total Protein 4.7 #L White Blood Count 10.5 Medications Medications Current Medications Ondansetron HCl (Zofran Inj) 4 mg Q6H PRN IV NAUSEA AND/OR VOMITING; Start at 12:00 Nitroglycerin (Nitroglycerin (Sl Tab) 0.4 Mg) 1 tab Q5M PRN SL CHEST PAIN; Start 06/26/16 at 12:00 Acetaminophen (Tylenol Supp) 650 mg Q4H PRN RI PAIN LEVEL 1-3 OR FEVER Last administered on 07/01/16t 19:57; Admin Dose 650 MG; Start 06/26/16 at 12:00 Morphine Sulfate (morphine) 2 mg Q4H PRN IV PAIN LEVEL 7-10 Last administered on 07/13/16 14:46; Admin Dose 2 MG; Start 06/26/16 at 12:00 Lorazepam (Ativan) 1 mg Q2H PRN IV ANXIETY Last administered on 07/14/16 04:48 ; Admin Dose 1 MG; Start 06/26/16 at 12:00 IV Flush (NS 10 ml) 10 ml PRN PRN IV IV PROTOCOL; Start 06/27/16 at 16:30 Metoprolol Tartrate 25 mg 25 mg BID PO Last administered on 07/13/16 21:31; Admin Dose 25 MG; Start 06/28/16 at 21:00 Fentanyl/Dextrose (D5W) 100 ml @ 0 mls/hr TITRATE IV Last administered on 03:01; Admin Dose 0 MLS/HR; Start 06/29/16 at 15:30 Nystatin (Nystatin Susp) 5 ml TID PO Last administered on 07/14/16 09:54; Admin Dose 5 ML; Start 06/30/16 at 21:00 Hydralazine HCl 10 mg 10 mg Q8 PO Last administered on 07/13/16 21:31; Admin Dose 10 MG; Start 07/01/16 at 14:00 Ceftriaxone Sodium (Rocephin) 50 ml @ 100 mls/hr Q24H IVPB Last administered on 07/13/16 14:36; Admin Dose 100 MLS/HR; Start 07/12/16 at 14:30 Apixaban (Eliquis) 10 mg BID PO Last administered on 07/14/16 10:31; Admin Dose 10 MG; Start 07/14/16 at 09:30; Stop 07/20/16 at 21:01 Lansoprazole (Prevacid) 30 mg DAILY@06 GTB ; Start 07/15/16 at 06:00 Apixaban 5 mg 5 mg BID PO ; Start 07/21/16 at 09:00 Dextrose (D5W) 1,000 ml @ 100 mls/hr Q10H IV Last administered on 07/14/16 10 :32; Admin Dose 100 MLS/HR; Start 07/14/16 at 10:00 SEVERO STUBBS Jul 14, 2016 11:57
--- NOTE | 2016-07-14 12:46 | CONS ---
Date/Time of Note Date/Time of Note DATE: 07/14/16 TIME: 12:41 Assessment/Plan Assessment/Plan Chief Complaint/Hosp Course Impression 1. Microcytic anemia: 2. Transaminitis - 2/2 to sepsis and HCV (HCV RNA 9, 017,009). Currently transaminase stable 3. Encephalopathy 4. Shortness of breath - hypoxemic respiratory failure - multifactorial - heart failure acute on chronic - Vent dependent - s/p trach 5. Sepsis severe 2/2 to pneumonia - tachycardia/leukocytosis - HCAP - IV cefepime, levaquin, vanc - respiratory cultures, monitor trend - improving 6. CHF - diastolic dysfunction acute on chronic - EF recent shows 40%, D shaped left ventricleMicrocytic anemia: 7. Dysphagia, s/p PEG placement, tolerating tube feeds. Recommendations: 1. continue protonix BID 2. monitor H/H, transfuse if hgb < 8 g/dL. Pt has been given IV iron as well. 3. Recommend outpatient follow-up with [facility] for HCV treatment. No indication for in-patient treatment. 4. Hold for residual greater than 150mL. 5. continue tube feeds 6. other supportive care per primary and other consultants. Problems: Consultation Date/Type/Reason Admit Date/Time Jun 26, 2016 at 11:39 Type of Consultation: GI Referring Provider: ASAD DAS MD, [facility] 24 HR Interval Summary Free Text/Dictation sleeping, tolerating tube feeds, no n/v, s/p trach yesterday Exam/Review of Systems Vital Signs Vitals Vital Signs Date Time Temp Pulse Resp B/P Pulse Ox O2 Delivery O2 Flow Rate FiO2 07/14/16 12:00 92 07/14/16 12:00 16 94/59 98 07/14/16 11:00 97.6 07/14/16 08:30 30 07/13/16 07:30 Mechanical Ventilator Intake and Output 07/13/16 07/13/16 07/14/16 15:00 23:00 07:00 Intake Total 290 ml 370 ml 60 ml Output Total 380 ml 535 ml 330 ml Balance -90 ml -165 ml -270 ml Exam Head: atraumatic, normocephalic Eyes: EOMI, nl conjunctiva, nl lids, nl sclera ENMT: mucosa pink and moist, nl external ears & nose, nl lips & teeth, nl nasal mucosa & septum Neck: non-tender, supple Respiratory: clear to auscultation, normal air movement Cardiovascular: nl pulses, regular rate and rhythm Gastrointestinal: bowel sounds, other (GT intact), soft Results Result Diagram: 07/14/16 0530 07/14/16 0530 Results 24 hrs Laboratory Tests Test 07/13/16 14:35 07/14/16 05:30 Anion Gap 16 18 H Blood Urea Nitrogen 66 H 66 H Calcium Level 7.8 L 8.2 L Carbon Dioxide Level 28 27 Chloride Level 108 108 Creatinine 1.60 H 1.32 H Glucose Level 111 111 Potassium Level 4.7 4.3 Sodium Level 147 H 149 H Alanine Aminotransferase (ALT/SGPT) 63 Albumin 2.1 L Albumin/Globulin Ratio 0.80 Alkaline Phosphatase 51 Aspartate Amino Transf (AST/SGOT) 99 H Basophils # 0.0 Basophils % 0.4 Blood Morphology Comment Direct Bilirubin 0.00 Eosinophils # 0.1 Eosinophils % 0.6 Globulin 2.60 Hematocrit 39.3 L Hemoglobin 12.3 L Indirect Bilirubin 0.5 Lymphocytes # 1.4 Lymphocytes % 13.5 L Mean Corpuscular Hemoglobin 23.9 L Mean Corpuscular Hemoglobin Concent 31.4 L Mean Corpuscular Volume 76.0 L Mean Platelet Volume 12.6 H Monocytes # 0.6 Monocytes % 5.7 Neutrophils # 8.3 H Neutrophils % 79.8 H Nucleated Red Blood Cells # 0.0 Nucleated Red Blood Cells % 0.0 Platelet Count 182 Red Blood Count 5.17 Red Cell Distribution Width 21.8 H Total Bilirubin 0.5 Total Protein 4.7 #L White Blood Count 10.5 Medications Medications Current Medications Ondansetron HCl (Zofran Inj) 4 mg Q6H PRN IV NAUSEA AND/OR VOMITING; Start at 12:00 Nitroglycerin (Nitroglycerin (Sl Tab) 0.4 Mg) 1 tab Q5M PRN SL CHEST PAIN; Start 06/26/16 at 12:00 Acetaminophen (Tylenol Supp) 650 mg Q4H PRN PA PAIN LEVEL 1-3 OR FEVER Last administered on 07/01/16 19:57; Admin Dose 650 MG; Start 06/26/16 at 12:00 Morphine Sulfate (morphine) 2 mg Q4H PRN IV PAIN LEVEL 7-10 Last administered on 07/13/16 14:46; Admin Dose 2 MG; Start 06/26/16 at 12:00 Lorazepam (Ativan) 1 mg Q2H PRN IV ANXIETY Last administered on 07/14/16 04:48 ; Admin Dose 1 MG; Start 06/26/16 at 12:00 IV Flush (NS 10 ml) 10 ml PRN PRN IV IV PROTOCOL; Start 06/27/16 at 16:30 Nystatin (Nystatin Susp) 5 ml TID PO Last administered on 07/14/16 09:54; Admin Dose 5 ML; Start 06/30/16 at 21:00 Hydralazine HCl 10 mg 10 mg Q8 PO Last administered on 07/13/16 21:31; Admin Dose 10 MG; Start 07/01/16 at 14:00 Ceftriaxone Sodium (Rocephin) 50 ml @ 100 mls/hr Q24H IVPB Last administered on 07/13/16 14:36; Admin Dose 100 MLS/HR; Start 07/12/16 at 14:30 Apixaban (Eliquis) 10 mg BID PO Last administered on 07/14/16 10:31; Admin Dose 10 MG; Start 07/14/16 at 09:30; Stop 07/20/16 at 21:01 Lansoprazole (Prevacid) 30 mg DAILY@06 GTB ; Start 07/15/16 at 06:00 Apixaban 5 mg 5 mg BID PO ; Start 07/21/16 at 09:00 Dextrose (D5W) 1,000 ml @ 100 mls/hr Q10H IV Last administered on 07/14/16 10 :32; Admin Dose 100 MLS/HR; Start 07/14/16 at 10:00 Metoprolol Tartrate (Lopressor) 12.5 mg BID PO ; Start 07/14/16 at 21:00 YAYA COBOS MD Jul 14, 2016 12:46
[2016-07-14] MEDS: CEFTRIAXONE 2 GM/50 ML (PMX) 50 ML IVPB SCH (14:07)
--- NOTE | 2016-07-14 18:34 | PN ---
Date/Time of Note Date/Time of Note DATE: 07/14/16 TIME: 18:32 Assessment/Plan Lines/Catheters IV Catheter Type (from Nrs): PICC Line [place] in Place (from Nrs): Yes Assessment/Plan Chief Complaint/Hosp Course IMPRESSION: 1. Endocarditis involving aortic and mitral valve. 2. Aortic regurgitation. 3. Mitral regurgitation. 4. Cardiomyopathy with diminished ejection fraction. 5. Renal failure. 6. History of drug use. 7. Elevation of the transaminases. 8. Coagulopathy. RECOMMENDATIONS: This patient is not a candidate to undergo surgery at the present time; too high risk for surgical repair. Please continue antibiotics. Pt DNR SP tracheostomy will continue vent support trach care Problems: Subjective 24 Hr Interval Summary Constitutional: improved Pain Control: mild Exam/Review of Systems Vital Signs Vitals Vital Signs Date Time Temp Pulse Resp B/P Pulse Ox O2 Delivery O2 Flow Rate FiO2 07/14/16 18:00 123 18 107/68 97 07/14/16 17:00 30 07/14/16 16:00 97.9 07/13/16 07:30 Mechanical Ventilator Intake and Output 07/13/16 07/13/16 07/14/16 15:00 23:00 07:00 Intake Total 290 ml 370 ml 70 ml Output Total 380 ml 535 ml 365 ml Balance -90 ml -165 ml -295 ml Exam Neck: non-tender, supple Respiratory: clear to auscultation, normal air movement Cardiovascular: nl pulses, regular rate and rhythm Gastrointestinal: nl liver, spleen, non-tender, soft Results Result Diagram: 07/14/16 0530 07/14/16 0530 KARI ZAMAN MD Jul 14, 2016 18:34
[2016-07-15] VITALS (24 sets, daily range): BP systolic 105–116; BP diastolic 55–65; PULSE 106–115; RESP 17–53
[2016-07-15] MEDS: morphine 2 MG INJ IV PRN (03:44)
[2016-07-15] MEDS: DEXTROSE 5% 1,000 ML IV SCH ×3 (05:13→22:07)
[2016-07-15] MEDS: LORAZEPAM 2 MG INJ IV PRN (05:13)
[2016-07-15] MEDS ORDERED: LANSOPRAZOLE 30 MG CAP GTB SCH (06:00)
[2016-07-15 07:14] LABS: BASOPHILS % 0.2 % (0.0-2.0); EOSINOPHILS % 0.2 % (0.0-7.0); HEMATOCRIT 36.7 % (42.0-52.0); HEMOGLOBIN 11.3 g/dl (14.0-18.0); LYMPHOCYTES # 1.2 10^3/ul (0.8-2.9); LYMPHOCYTES % 13.1 % (15.0-51.0); MEAN CORPUSCULAR HEMOGLOBIN 23.8 pg (29.0-33.0); MEAN CORPUSCULAR HGB CONC 30.7 g/dl (32.0-37.0); MEAN CORPUSCULAR VOLUME 77.3 fl (82.0-101.0); MEAN PLATELET VOLUME 13.2 fl (7.4-10.4); MONOCYTE # 0.6 10^3/ul (0.3-0.9); MONOCYTES % 6.4 % (0.0-11.0); NEUTROPHIL # 7.3 10^3/ul (1.6-7.5); NEUTROPHILS % 80.1 % (39.0-77.0); PLATELET COUNT 197 10^3/UL (140-440); RED BLOOD COUNT 4.75 10^6/ul (4.70-6.10); RED CELL DISTRIBUTION WIDTH 22.6 % (11.5-14.5); UNCORRECTED WBC 9.2 10^3/ul (4.8-10.8); WHITE BLOOD COUNT 9.2 10^3/ul (4.8-10.8)
[2016-07-15 07:31] LABS: CONDITION 1; LH ANALYZER COMMENTS 1; SUSPECT 1
[2016-07-15] MEDS: METOPROLOL 25 MG TAB PO SCH ×2 (09:00→10:42)
--- NOTE | 2016-07-15 09:55 | CONS ---
Date/Time of Note Date/Time of Note DATE: 07/15/16 TIME: 09:51 Assessment/Plan Assessment/Plan Chief Complaint/Hosp Course Impression 1. Microcytic anemia: occult blood negative on 07-06-16. 2. Transaminitis - 2/2 to sepsis and HCV (HCV RNA 9, 017,009). Currently transaminase stable 3. Encephalopathy 4. Shortness of breath - hypoxemic respiratory failure - multifactorial - heart failure acute on chronic - Vent dependent - s/p trach 5. Sepsis severe 2/2 to pneumonia - tachycardia/leukocytosis - HCAP - IV cefepime, levaquin, vanc - respiratory cultures, monitor trend - improving 6. CHF - diastolic dysfunction acute on chronic - EF recent shows 40%, D shaped left ventricleMicrocytic anemia: 7. Dysphagia, s/p PEG placement, tolerating tube feeds. Recommendations: 1. I increased prevacid to BID via G-tube as family reports "black stuff" with checking residual. I checked this AM and only tube feed material, no black material. 2. monitor H/H, transfuse if hgb < 8 g/dL. Pt has been given IV iron as well. 3. Recommend outpatient follow-up with supervisor pumping for HCV treatment. No indication for in-patient treatment. 4. Hold for residual greater than 150mL. 5. continue tube feeds 6. other supportive care per primary and other consultants. Problems: Consultation Date/Type/Reason Admit Date/Time Jun 26, 2016 at 11:39 Type of Consultation: GI Referring Provider: ASAD DAS MD, [facility] 24 HR Interval Summary Free Text/Dictation family at bedside, tolerates tube feeds, no n/v. Family say that there were "black stuff" when nurses were checking residual. Constitutional: improved Exam/Review of Systems Vital Signs Vitals Vital Signs Date Time Temp Pulse Resp B/P Pulse Ox O2 Delivery O2 Flow Rate FiO2 07/15/16 08:54 110 07/15/16 07:39 99.7 20 107/59 99 07/15/16 07:35 30 07/15/16 04:11 Trach Collar Intake and Output 07/14/16 07/14/16 07/15/16 15:00 23:00 07:00 Intake Total 475 ml 960 ml 1915 ml Output Total 302 ml 288 ml 540 ml Balance 173 ml 672 ml 1375 ml Exam Psych: confusion Head: atraumatic, normocephalic Eyes: EOMI, nl conjunctiva, nl lids, nl sclera ENMT: mucosa pink and moist, nl external ears & nose, nl lips & teeth, nl nasal mucosa & septum Neck: non-tender, supple Respiratory: clear to auscultation, normal air movement Cardiovascular: nl pulses, regular rate and rhythm Gastrointestinal: bowel sounds, non-tender, soft Results Result Diagram: 07/15/16 0610 07/14/16 0530 Results 24 hrs Laboratory Tests Test 07/15/16 06:10 07/15/16 08:02 Basophils # 0.0 Basophils % 0.2 Blood Morphology Comment Eosinophils # 0.0 Eosinophils % 0.2 Hematocrit 36.7 L Hemoglobin 11.3 L Lymphocytes # 1.2 Lymphocytes % 13.1 L Mean Corpuscular Hemoglobin 23.8 L Mean Corpuscular Hemoglobin Concent 30.7 L Mean Corpuscular Volume 77.3 L Mean Platelet Volume 13.2 H Monocytes # 0.6 Monocytes % 6.4 Neutrophils # 7.3 Neutrophils % 80.1 H Nucleated Red Blood Cells # 0.0 Nucleated Red Blood Cells % 0.0 Platelet Count 197 Red Blood Count 4.75 Red Cell Distribution Width 22.6 H White Blood Count 9.2 Bedside Glucose 127 Medications Medications Current Medications Ondansetron HCl (Zofran Inj) 4 mg Q6H PRN IV NAUSEA AND/OR VOMITING; Start at 12:00 Nitroglycerin (Nitroglycerin (Sl Tab) 0.4 Mg) 1 tab Q5M PRN SL CHEST PAIN; Start 06/26/16 at 12:00 Acetaminophen (Tylenol Supp) 650 mg Q4H PRN [place] PAIN LEVEL 1-3 OR FEVER Last administered on 07/01/16 19:57; Admin Dose 650 MG; Start 06/26/16 at 12:00 Morphine Sulfate (morphine) 2 mg Q4H PRN IV PAIN LEVEL 7-10 Last administered on 07/15/16 03:44; Admin Dose 2 MG; Start 06/26/16 at 12:00 Lorazepam (Ativan) 1 mg Q2H PRN IV ANXIETY Last administered on 07/15/16 05:13 ; Admin Dose 1 MG; Start 06/26/16 at 12:00 IV Flush (NS 10 ml) 10 ml PRN PRN IV IV PROTOCOL; Start 06/27/16 at 16:30 Nystatin (Nystatin Susp) 5 ml TID PO Last administered on 07/14/16 21:03; Admin Dose 5 ML; Start 06/30/16 at 21:00 Hydralazine HCl 10 mg 10 mg Q8 PO Last administered on 07/14/16 21:06; Admin Dose 10 MG; Start 07/01/16 at 14:00 Ceftriaxone Sodium (Rocephin) 50 ml @ 100 mls/hr Q24H IVPB Last administered on 07/14/16 14:07; Admin Dose 100 MLS/HR; Start 07/12/16 at 14:30 Apixaban (Eliquis) 10 mg BID PO Last administered on 07/14/16 21:04; Admin Dose 10 MG; Start 07/14/16 at 09:30; Stop 07/20/16 at 21:01 Lansoprazole (Prevacid) 30 mg DAILY@06 GTB Last administered on 07/15/16 05:13 ; Admin Dose 30 MG; Start 07/15/16 at 06:00 Apixaban 5 mg 5 mg BID PO ; Start 07/21/16 at 09:00 Dextrose (D5W) 1,000 ml @ 100 mls/hr Q10H IV Last administered on 07/15/16 08 :08; Admin Dose 100 MLS/HR; Start 07/14/16 at 10:00 Metoprolol Tartrate (Lopressor) 12.5 mg BID PO Last administered on 07/14/16 21:05; Admin Dose 12.5 MG; Start 07/14/16 at 21:00 YAYA COBOS MD Jul 15, 2016 09:55
[2016-07-15] MEDS: APIXABAN 5 MG TABLET PO SCH ×2 (10:41→22:03)
[2016-07-15] MEDS: NYSTATIN SUSP 5 ML CUP PO SCH ×3 (10:42→22:02)
[2016-07-15 10:52] LABS: POTASSIUM 3.6 mmol/L (3.5-5.1)
[2016-07-15 10:55] LABS: CREATININE 1.17 mg/dl (0.61-1.24)
[2016-07-15 10:56] LABS: CALCIUM 7.8 mg/dl (8.4-10.2); MAGNESIUM 2.4 mg/dl (1.7-2.5)
--- NOTE | 2016-07-15 11:05 | CONS ---
Date/Time of Note Date/Time of Note DATE: 07/15/16 TIME: 11:04 Assessment/Plan Assessment/Plan Additional Assessment/Plan 1. Hypernatremia noted yest, labs pending, will cont d5 for now 2. Hepatitis C with elevated liver enzymes 3. Respiratory failure , ventilator dependent Consultation Date/Type/Reason Admit Date/Time Jun 26, 2016 at 11:39 Type of Consultation: GI Referring Provider: ASAD DAS MD, [facility] [place] 24 HR Interval Summary Subjective hx not possible: other (on vent, trach in place) Exam/Review of Systems Vital Signs Vitals Vital Signs Date Time Temp Pulse Resp B/P Pulse Ox O2 Delivery O2 Flow Rate FiO2 07/15/16 09:10 113 19 100 30 07/15/16 07:39 99.7 107/59 07/15/16 04:11 Trach Collar Intake and Output 07/14/16 07/14/16 07/15/16 15:00 23:00 07:00 Intake Total 475 ml 960 ml 1915 ml Output Total 302 ml 288 ml 540 ml Balance 173 ml 672 ml 1375 ml Exam Respiratory: diminished breath sounds Cardiovascular: regular rate and rhythm Gastrointestinal: soft Extremities: edema (2+ pedal edema) Results Result Diagram: 07/15/16 0610 07/14/16 0530 Results 24 hrs Laboratory Tests Test 07/15/16 06:10 07/15/16 08:02 Basophils # 0.0 Basophils % 0.2 Blood Morphology Comment Eosinophils # 0.0 Eosinophils % 0.2 Hematocrit 36.7 L Hemoglobin 11.3 L Lymphocytes # 1.2 Lymphocytes % 13.1 L Mean Corpuscular Hemoglobin 23.8 L Mean Corpuscular Hemoglobin Concent 30.7 L Mean Corpuscular Volume 77.3 L Mean Platelet Volume 13.2 H Monocytes # 0.6 Monocytes % 6.4 Neutrophils # 7.3 Neutrophils % 80.1 H Nucleated Red Blood Cells # 0.0 Nucleated Red Blood Cells % 0.0 Platelet Count 197 Red Blood Count 4.75 Red Cell Distribution Width 22.6 H White Blood Count 9.2 Bedside Glucose 127 Medications Medications Current Medications Ondansetron HCl (Zofran Inj) 4 mg Q6H PRN IV NAUSEA AND/OR VOMITING; Start at 12:00 Nitroglycerin (Nitroglycerin (Sl Tab) 0.4 Mg) 1 tab Q5M PRN SL CHEST PAIN; Start 06/26/16 at 12:00 Acetaminophen (Tylenol Supp) 650 mg Q4H PRN [place] PAIN LEVEL 1-3 OR FEVER Last administered on 07/01/16 19:57; Admin Dose 650 MG; Start 06/26/16 at 12:00 Morphine Sulfate (morphine) 2 mg Q4H PRN IV PAIN LEVEL 7-10 Last administered on 07/15/16 03:44; Admin Dose 2 MG; Start 06/26/16 at 12:00 Lorazepam (Ativan) 1 mg Q2H PRN IV ANXIETY Last administered on 07/15/16 05:13 ; Admin Dose 1 MG; Start 06/26/16 at 12:00 IV Flush (NS 10 ml) 10 ml PRN PRN IV IV PROTOCOL; Start 06/27/16 at 16:30 Nystatin (Nystatin Susp) 5 ml TID PO Last administered on 07/15/16 10:42; Admin Dose 5 ML; Start 06/30/16 at 21:00 Hydralazine HCl 10 mg 10 mg Q8 PO Last administered on 07/14/16 21:06; Admin Dose 10 MG; Start 07/01/16 at 14:00 Ceftriaxone Sodium (Rocephin) 50 ml @ 100 mls/hr Q24H IVPB Last administered on 07/14/16 14:07; Admin Dose 100 MLS/HR; Start 07/12/16 at 14:30 Apixaban (Eliquis) 10 mg BID PO Last administered on 07/15/16 10:41; Admin Dose 10 MG; Start 07/14/16 at 09:30; Stop 07/20/16 at 21:01 Apixaban 5 mg 5 mg BID PO ; Start 07/21/16 at 09:00 Dextrose (D5W) 1,000 ml @ 100 mls/hr Q10H IV Last administered on 07/15/16 08 :08; Admin Dose 100 MLS/HR; Start 07/14/16 at 10:00 Metoprolol Tartrate (Lopressor) 12.5 mg BID PO Last administered on 07/15/16 10:42; Admin Dose 12.5 MG; Start 07/14/16 at 21:00 Lansoprazole (Prevacid) 30 mg BID@06,18 GTB ; Start 07/15/16 at 18:00 TAMMIE GARCIA MD Jul 15, 2016 11:05
--- NOTE | 2016-07-15 11:22 | CONS ---
Date/Time of Note Date/Time of Note DATE: 07/15/16 TIME: 11:20 Assessment/Plan Assessment/Plan Chief Complaint/Hosp Course ID PROGRESS NOTE TOTAL ABX DAY #4 => Ceftriaxone s/p Vanco IV,Cefepime, Levaquin 24H INTERVAL SUMMARY * Clinically status quo - low grade temps, obtunded, responds to painful stimuli , Vented, VSS, no fever, appears comfortable * s/p TRACH placement 07/13/16 * TMax 07/12/16 @ 99.5, WBC normalized PHYSICAL EXAMINATION: GENERAL: 36 yo M, VSS, NAD, Vented HEENT: Unremarkable NECK: New Trach secure, scant secretions CHEST: Rise symmetrical. Scattered coarse BS HEART: NSR on tele ABDOMEN: Soft EXTREMITIES: Warm w/generalized dependent edema x4 SKIN: Multiple tattoos ID ASSESSMENT: 36 yo M w/PMHx IVDU w/(+)HCV, (-)HIV screen admit with: 1. Mild SIRS with low grade fever / tachy / leucocytosis: IMPROVED * s/p Sepsis = RESOLVED 2. Acute hypoxemic respiratory failure = MULTIFACTORIAL -> s/p TRACH 07/13/16 3. Acute CHF exacerbation due to Cardiomyopathy with diminished ejection fraction w/ Aortic & Mitral regurgitation. 4. Aortic and mitral valve vegetations with a history of alpha hemolytic streptococcus septicemia in March 2016. * s/p 6 weeks ABX Rx completed 5. Resolving Pneumonia: Combined aspiration pneumonia vs community-acquired pneumonia on admission => Now concern VAP * Sputum cx (+)C.Albicans, possibly from oral contamination = SCANT 6. Acute renal failure 7. Anemia. 8. Coagulopathy w/R popliteal DVT -> s/p PE on Eliquis 9. Transaminitis 2nd to sepsis on admission INVASIVES: Trach, peg, Merino, PICC line. CURRENT ABX: Ceftriaxone 07/12/16 = #4 + Nystatin oral care s/p Vancomycin IV, Cefepime, Levaquin ID RECOMMENDATIONS: CONTINUE Current ABX PER NOTES: Pending TNS to Med-Surg w/plans for BECKMAN Evaluation . . Problems: Consultation Date/Type/Reason Admit Date/Time Jun 26, 2016 at 11:39 Type of Consultation: ID Referring Provider: ASAD DAS MD, [facility] Exam/Review of Systems Vital Signs Vitals Vital Signs Date Time Temp Pulse Resp B/P Pulse Ox O2 Delivery O2 Flow Rate FiO2 07/15/16 09:10 113 19 100 30 07/15/16 07:39 99.7 107/59 07/15/16 04:11 Trach Collar Intake and Output 07/14/16 07/14/16 07/15/16 15:00 23:00 07:00 Intake Total 475 ml 960 ml 1915 ml Output Total 302 ml 288 ml 540 ml Balance 173 ml 672 ml 1375 ml Results Result Diagram: 07/15/16 0610 07/14/16 0530 Results 24 hrs Laboratory Tests Test 07/15/16 06:10 07/15/16 08:02 Basophils # 0.0 Basophils % 0.2 Blood Morphology Comment Eosinophils # 0.0 Eosinophils % 0.2 Hematocrit 36.7 L Hemoglobin 11.3 L Lymphocytes # 1.2 Lymphocytes % 13.1 L Mean Corpuscular Hemoglobin 23.8 L Mean Corpuscular Hemoglobin Concent 30.7 L Mean Corpuscular Volume 77.3 L Mean Platelet Volume 13.2 H Monocytes # 0.6 Monocytes % 6.4 Neutrophils # 7.3 Neutrophils % 80.1 H Nucleated Red Blood Cells # 0.0 Nucleated Red Blood Cells % 0.0 Platelet Count 197 Red Blood Count 4.75 Red Cell Distribution Width 22.6 H White Blood Count 9.2 Bedside Glucose 127 Medications Medications Current Medications Ondansetron HCl (Zofran Inj) 4 mg Q6H PRN IV NAUSEA AND/OR VOMITING; Start at 12:00 Nitroglycerin (Nitroglycerin (Sl Tab) 0.4 Mg) 1 tab Q5M PRN SL CHEST PAIN; Start 06/26/16 at 12:00 Acetaminophen (Tylenol Supp) 650 mg Q4H PRN [place] PAIN LEVEL 1-3 OR FEVER Last administered on 07/01/16 19:57; Admin Dose 650 MG; Start 06/26/16 at 12:00 Morphine Sulfate (morphine) 2 mg Q4H PRN IV PAIN LEVEL 7-10 Last administered on 07/15/16 03:44; Admin Dose 2 MG; Start 06/26/16 at 12:00 Lorazepam (Ativan) 1 mg Q2H PRN IV ANXIETY Last administered on 07/15/16 05:13 ; Admin Dose 1 MG; Start 06/26/16 at 12:00 IV Flush (NS 10 ml) 10 ml PRN PRN IV IV PROTOCOL; Start 06/27/16 at 16:30 Nystatin (Nystatin Susp) 5 ml TID PO Last administered on 07/15/16 10:42; Admin Dose 5 ML; Start 06/30/16 at 21:00 Hydralazine HCl 10 mg 10 mg Q8 PO Last administered on 07/14/16 21:06; Admin Dose 10 MG; Start 07/01/16 at 14:00 Ceftriaxone Sodium (Rocephin) 50 ml @ 100 mls/hr Q24H IVPB Last administered on 07/14/16 14:07; Admin Dose 100 MLS/HR; Start 07/12/16 at 14:30 Apixaban (Eliquis) 10 mg BID PO Last administered on 07/15/16 10:41; Admin Dose 10 MG; Start 07/14/16 at 09:30; Stop 07/20/16 at 21:01 Apixaban 5 mg 5 mg BID PO ; Start 07/21/16 at 09:00 Dextrose (D5W) 1,000 ml @ 100 mls/hr Q10H IV Last administered on 07/15/16 08 :08; Admin Dose 100 MLS/HR; Start 07/14/16 at 10:00 Metoprolol Tartrate (Lopressor) 12.5 mg BID PO Last administered on 07/15/16 10:42; Admin Dose 12.5 MG; Start 07/14/16 at 21:00 Lansoprazole (Prevacid) 30 mg BID@06,18 GTB ; Start 07/15/16 at 18:00 MARIO MCCAIN NP Jul 15, 2016 11:22
--- NOTE | 2016-07-15 12:04 | PN ---
Date/Time of Note Date/Time of Note DATE: 07/15/16 TIME: 12:00 Assessment/Plan VTE Prophylaxis VTE Prophylaxis Intervention: other (eliquis) Lines/Catheters IV Catheter Type (from Nrs): PICC Line Central line still needed: Yes Urinary Cath still in place: Yes Reason Cath still needed: other (indicate) Assessment/Plan Assessment/Plan 36 yo unfortunate male with a past medical history of Bacterial Endocarditis finished 6 week course of IV antibiotics, Drug abuse, Nicotine abuse, Right popliteal thrombosis, PE (on Eliquis prior to admission), Microcytic anemia, CHF - diastolic, who came for worsening shortness of breath. 1. hypoxemic respiratory failure - - multifactorial - heart failure acute on chronic - still Vent dependent - trach 2. Mild SIRS with intermittent low grade fever / trach aspirate showed some heath /add diflucan? s/p Sepsis - severe 2/2 to pneumonia (HCAP) + endocarditis - tachycardia/ leukocytosis: resolved abx per ID 3. CHF - diastolic dysfunction acute on chronic - EF recent shows 40%, D shaped left ventricle -Ongoing diuresis with Bumex per Nephrology / patient is much improved 4. Encephalopathy: still fairly early to call permanent brain injury, continue close monitoring and status optimization for now 5. BESSIE - acute on chronic - 2/2 #2 - patient seems to be at baseline now - nephrology managing / appreciate input 6. Transaminitis - 2/2 to sepsis, monitor trend - much improved 7. PE - Switched to eliquis as no further intervention planned 8. Right popliteal thrombus - eliquis / no thrombus on recent LE USS 9. Microcytic anemia - monitor H/H, transfuse if hgb < 8 g/dL. Pt has been given IV iron as well. 10. GI ppx - Lansoprazole 11. DVT ppx -eliquis 12. DNR / DNI 13. S/p PEG placement for dysphagia / new trach 14. Hypernatremia - appreciate nephrology consult - f/u renal rec's, free H2O dispo -Continue supportive care and vent mgt and tube feeds. Case mgt to plan placement / probable Salazar versus subacute when cleared by pulm -Monitor fever curve and WBC count -Possible valve replacement surgery in future if more medically stable then critical care time today = 40 min Subjective 24 Hr Interval Summary Free Text/Dictation Patient seen and examined. Not alert yet and with no purposeful movements, family concerned about neurologic damage Exam/Review of Systems Vital Signs Vitals Vital Signs Date Time Temp Pulse Resp B/P Pulse Ox O2 Delivery O2 Flow Rate FiO2 07/15/16 11:05 112 18 98 30 07/15/16 07:39 99.7 107/59 07/15/16 04:11 Trach Collar Intake and Output 07/14/16 07/14/16 07/15/16 15:00 23:00 07:00 Intake Total 475 ml 960 ml 1915 ml Output Total 302 ml 288 ml 540 ml Balance 173 ml 672 ml 1375 ml Exam Constitutional: No alert, No non-verbal, No oriented Eyes: PERRL Neck: other (trach to vent) Respiratory: diminished breath sounds Cardiovascular: murmurs/extra sounds Gastrointestinal: bowel sounds, other (PEG), soft Extremities: pitting pedal edema Neurological: No nl mental status, No nl speech, No nl strength Results Result Diagram: 07/15/16 0610 07/15/16 0940 Results 24 hrs Laboratory Tests Test 07/15/16 06:10 07/15/16 08:02 07/15/16 09:40 Basophils # 0.0 Basophils % 0.2 Blood Morphology Comment Eosinophils # 0.0 Eosinophils % 0.2 Hematocrit 36.7 L Hemoglobin 11.3 L Lymphocytes # 1.2 Lymphocytes % 13.1 L Mean Corpuscular Hemoglobin 23.8 L Mean Corpuscular Hemoglobin Concent 30.7 L Mean Corpuscular Volume 77.3 L Mean Platelet Volume 13.2 H Monocytes # 0.6 Monocytes % 6.4 Neutrophils # 7.3 Neutrophils % 80.1 H Nucleated Red Blood Cells # 0.0 Nucleated Red Blood Cells % 0.0 Platelet Count 197 Red Blood Count 4.75 Red Cell Distribution Width 22.6 H White Blood Count 9.2 Bedside Glucose 127 Anion Gap 13 Blood Urea Nitrogen 62 H Calcium Level 7.8 L Carbon Dioxide Level 28 Chloride Level 106 Creatinine 1.17 Glucose Level 108 Magnesium Level 2.4 Phosphorus Level 3.0 Potassium Level 3.6 Sodium Level 143 Medications Medications Current Medications Ondansetron HCl (Zofran Inj) 4 mg Q6H PRN IV NAUSEA AND/OR VOMITING; Start at 12:00 Nitroglycerin (Nitroglycerin (Sl Tab) 0.4 Mg) 1 tab Q5M PRN SL CHEST PAIN; Start 06/26/16 at 12:00 Acetaminophen (Tylenol Supp) 650 mg Q4H PRN [place] PAIN LEVEL 1-3 OR FEVER Last administered on 07/01/16 19:57; Admin Dose 650 MG; Start 06/26/16 at 12:00 Morphine Sulfate (morphine) 2 mg Q4H PRN IV PAIN LEVEL 7-10 Last administered on 07/15/16 03:44; Admin Dose 2 MG; Start 06/26/16 at 12:00 Lorazepam (Ativan) 1 mg Q2H PRN IV ANXIETY Last administered on 07/15/16 05:13 ; Admin Dose 1 MG; Start 06/26/16 at 12:00 IV Flush (NS 10 ml) 10 ml PRN PRN IV IV PROTOCOL; Start 06/27/16 at 16:30 Nystatin (Nystatin Susp) 5 ml TID PO Last administered on 07/15/16 10:42; Admin Dose 5 ML; Start 06/30/16 at 21:00 Hydralazine HCl 10 mg 10 mg Q8 PO Last administered on 07/14/16 21:06; Admin Dose 10 MG; Start 07/01/16 at 14:00 Ceftriaxone Sodium (Rocephin) 50 ml @ 100 mls/hr Q24H IVPB Last administered on 07/14/16 14:07; Admin Dose 100 MLS/HR; Start 07/12/16 at 14:30 Apixaban (Eliquis) 10 mg BID PO Last administered on 07/15/16 10:41; Admin Dose 10 MG; Start 07/14/16 at 09:30; Stop 07/20/16 at 21:01 Apixaban 5 mg 5 mg BID PO ; Start 07/21/16 at 09:00 Dextrose (D5W) 1,000 ml @ 100 mls/hr Q10H IV Last administered on 07/15/16 08 :08; Admin Dose 100 MLS/HR; Start 07/14/16 at 10:00 Metoprolol Tartrate (Lopressor) 12.5 mg BID PO Last administered on 07/15/16 10:42; Admin Dose 12.5 MG; Start 07/14/16 at 21:00 Lansoprazole (Prevacid) 30 mg BID@06,18 GTB ; Start 07/15/16 at 18:00 AIYANA GIANG Jul 15, 2016 12:04
--- NOTE | 2016-07-15 12:31 | RADRPT ---
PROCEDURE: XR Chest. CLINICAL INDICATION: Shortness of breath. TECHNIQUE: Single frontal view. COMPARISON: 07/08/2016. FINDINGS: The endotracheal tube has been replaced with a tracheostomy tube. The left arm PICC line tip is in the lower superior vena cava. Left basilar atelectasis or pneumonia is unchanged. The lungs are ot herwise clear. The heart is enlarged. There is no pleural effusion. There is no pneumothorax. IMPRESSION: 1. No change from 07/08/2016. RPTAT: QQ .Radu Schneider MD, MD Date Time Electronically viewed and signed by .Radu Schneider MD, MD on 07/15/2016 12:30 .R/
--- NOTE | 2016-07-15 12:56 | PN ---
Date/Time of Note Date/Time of Note DATE: 07/15/16 TIME: 12:55 Assessment/Plan Lines/Catheters IV Catheter Type (from Nrs): PICC Line Merino in Place (from Nrs): Yes Assessment/Plan Chief Complaint/Hosp Course IMPRESSION: 1. Endocarditis involving aortic and mitral valve. 2. Aortic regurgitation. 3. Mitral regurgitation. 4. Cardiomyopathy with diminished ejection fraction. 5. Renal failure. 6. History of drug use. 7. Elevation of the transaminases. 8. Coagulopathy. RECOMMENDATIONS: This patient is not a candidate to undergo surgery at the present time; too high risk for surgical repair. Please continue antibiotics. Pt DNR SP tracheostomy will continue vent support trach care Problems: Subjective 24 Hr Interval Summary Constitutional: improved Pain Control: mild Exam/Review of Systems Vital Signs Vitals Vital Signs Date Time Temp Pulse Resp B/P Pulse Ox O2 Delivery O2 Flow Rate FiO2 07/15/16 12:32 108 07/15/16 12:02 99.1 20 116/65 100 07/15/16 11:05 30 07/15/16 04:11 Trach Collar Intake and Output 07/14/16 07/14/16 07/15/16 15:00 23:00 07:00 Intake Total 475 ml 960 ml 1915 ml Output Total 302 ml 288 ml 540 ml Balance 173 ml 672 ml 1375 ml Exam ENMT: mucosa pink and moist, nl external ears & nose, nl lips & teeth, nl nasal mucosa & septum Neck: non-tender, supple Respiratory: clear to auscultation, normal air movement Cardiovascular: nl pulses, regular rate and rhythm Results Result Diagram: 07/15/16 0610 07/15/16 0940 KARI ZAMAN MD Jul 15, 2016 12:55
[2016-07-15] MEDS ORDERED: POTASSIUM CHLORIDE 20 MEQ POWDER FOR ORAL SOLN GTB ONE (13:30)
--- NOTE | 2016-07-15 14:19 | CONS ---
Date/Time of Note Date/Time of Note DATE: 07/15/16 TIME: 14:17 Assessment/Plan Assessment/Plan Chief Complaint/Hosp Course IMPRESSION: 1. Congestive heart failure exacerbation, systolic, acute on chronic with last known EF approximately 40% by echo May 2016. 2. Aortic regurgitation, moderate to severe with possible ongoing vegetation by most recent echo May 2016. 3. Mitral regurgitation, moderate to severe. 4. History of recent endocarditis status post 6-week course of antibiotics. 5. Cardiomyopathy with decreased left ventricular ejection fraction last approximately 40% by echo 06/14/2016. 6. Coagulopathy-resolved 7. Renal failure-slowly improving again 9. Increased LFTs-improving 10. Increased Na 12. Mild anemia. 13.Resp failure s/p trach 14. s/p Code blue 15.DNR 16.dysphagia s/p G tube Recc: -Tele -Continue bumex IVP /follow output/cheese grader closely -Low dose BB/hydralazine as tolerated only following BP/HR closely -Now on apixaban -Per CT surgery not a candidate for valve replacement at this time due to high risk -F/U blood cultures -Continue abx's -Follow volume status closely, currently off of bumex -Free water for increased NA Problems: Consultation Date/Type/Reason Admit Date/Time Jun 26, 2016 at 11:39 Initial Consult Date 06/27/2016 Type of Consultation: Cardiology Reason for Consultation CHF Referring Provider: ASAD DAS MD, [facility] Exam/Review of Systems Vital Signs Vitals Vital Signs Date Time Temp Pulse Resp B/P Pulse Ox O2 Delivery O2 Flow Rate FiO2 07/15/16 13:10 110 17 100 30 07/15/16 12:02 99.1 116/65 07/15/16 04:11 Trach Collar Intake and Output 07/14/16 07/14/16 07/15/16 15:00 23:00 07:00 Intake Total 475 ml 960 ml 1915 ml Output Total 302 ml 288 ml 540 ml Balance 173 ml 672 ml 1375 ml Exam Review of Systems: CONSTITUTIONAL: No fevers, chills. PULMONARY: trached CARDIOVASCULAR: No chest pain/palpitations GASTROINTESTINAL: No nausea/vomiting. GENITOURINARY: No hematuria/dysuria. MUSCULOSKELETAL: No myagias/arthalgias. PSYCHIATRIC: The patient denies depression. NEUROLOGIC: Lethargic Constitutional: alert, oriented Psych: no complaints Head: normocephalic ENMT: mucosa pink and moist Neck: jvd, supple Respiratory: diminished breath sounds (at bases/B) Cardiovascular: regular rate and rhythm Gastrointestinal: non-tender, soft Musculoskeletal: muscle tone (normal) Extremities: pitting pedal edema Neurological: other (No focal deficits) Results Result Diagram: 07/15/16 0610 07/15/16 0940 Results 24 hrs Laboratory Tests Test 07/15/16 06:10 07/15/16 08:02 07/15/16 09:40 Basophils # 0.0 Basophils % 0.2 Blood Morphology Comment Eosinophils # 0.0 Eosinophils % 0.2 Hematocrit 36.7 L Hemoglobin 11.3 L Lymphocytes # 1.2 Lymphocytes % 13.1 L Mean Corpuscular Hemoglobin 23.8 L Mean Corpuscular Hemoglobin Concent 30.7 L Mean Corpuscular Volume 77.3 L Mean Platelet Volume 13.2 H Monocytes # 0.6 Monocytes % 6.4 Neutrophils # 7.3 Neutrophils % 80.1 H Nucleated Red Blood Cells # 0.0 Nucleated Red Blood Cells % 0.0 Platelet Count 197 Red Blood Count 4.75 Red Cell Distribution Width 22.6 H White Blood Count 9.2 Bedside Glucose 127 Anion Gap 13 Blood Urea Nitrogen 62 H Calcium Level 7.8 L Carbon Dioxide Level 28 Chloride Level 106 Creatinine 1.17 Glucose Level 108 Magnesium Level 2.4 Phosphorus Level 3.0 Potassium Level 3.6 Sodium Level 143 Medications Medications Current Medications Ondansetron HCl (Zofran Inj) 4 mg Q6H PRN IV NAUSEA AND/OR VOMITING; Start at 12:00 Nitroglycerin (Nitroglycerin (Sl Tab) 0.4 Mg) 1 tab Q5M PRN SL CHEST PAIN; Start 06/26/16 at 12:00 Acetaminophen (Tylenol Supp) 650 mg Q4H PRN [place] PAIN LEVEL 1-3 OR FEVER Last administered on 07/01/16 19:57; Admin Dose 650 MG; Start 06/26/16 at 12:00 Morphine Sulfate (morphine) 2 mg Q4H PRN IV PAIN LEVEL 7-10 Last administered on 07/15/16 03:44; Admin Dose 2 MG; Start 06/26/16 at 12:00 Lorazepam (Ativan) 1 mg Q2H PRN IV ANXIETY Last administered on 07/15/16 05:13 ; Admin Dose 1 MG; Start 06/26/16 at 12:00 IV Flush (NS 10 ml) 10 ml PRN PRN IV IV PROTOCOL; Start 06/27/16 at 16:30 Nystatin (Nystatin Susp) 5 ml TID PO Last administered on 07/15/16 10:42; Admin Dose 5 ML; Start 06/30/16 at 21:00 Hydralazine HCl 10 mg 10 mg Q8 PO Last administered on 07/14/16 21:06; Admin Dose 10 MG; Start 07/01/16 at 14:00 Ceftriaxone Sodium (Rocephin) 50 ml @ 100 mls/hr Q24H IVPB Last administered on 07/14/16 14:07; Admin Dose 100 MLS/HR; Start 07/12/16 at 14:30 Apixaban (Eliquis) 10 mg BID PO Last administered on 07/15/16 10:41; Admin Dose 10 MG; Start 07/14/16 at 09:30; Stop 07/20/16 at 21:01 Apixaban 5 mg 5 mg BID PO ; Start 07/21/16 at 09:00 Dextrose (D5W) 1,000 ml @ 100 mls/hr Q10H IV Last administered on 07/15/16 08 :08; Admin Dose 100 MLS/HR; Start 07/14/16 at 10:00 Metoprolol Tartrate (Lopressor) 12.5 mg BID PO Last administered on 07/15/16 10:42; Admin Dose 12.5 MG; Start 07/14/16 at 21:00 Lansoprazole (Prevacid) 30 mg BID@06,18 GTB ; Start 07/15/16 at 18:00 SEVERO STUBBS Jul 15, 2016 14:18
[2016-07-15] MEDS: CEFTRIAXONE 2 GM/50 ML (PMX) 50 ML IVPB SCH (14:47)
[2016-07-15] MEDS: LANSOPRAZOLE 30 MG CAP GTB SCH (17:48)
--- NOTE | 2016-07-15 18:21 | PN ---
DATE: SUBJECTIVE: The patient likely stable for transfer from intensive care unit. OBJECTIVE: VITAL SIGNS: Temperature 98, pulse is 110, blood pressure 116/65, O2 saturation 96% on FIO2 of 30%. GENERAL: Mom is at bedside. NECK: Trach site clean and intact. CARDIAC: S1, S2. No added sounds or murmurs. CHEST: Diminished air entry bilaterally. No rales or wheezes. ABDOMEN: Soft, nontender. No guarding or rebound. EXTREMITIES: No cyanosis, clubbing, edema. NEUROLOGIC: Generalized weakness, unable to assess. LABORATORY DATA: White count 9.2, hemoglobin 11.3, platelets of 197. BUN 62, creatinine 1.17. IMAGING: Chest x-ray was reviewed. Shows tracheostomy tube in place, clear lung willson. IMPRESSION AND PLAN: 1. Status post respiratory failure, now with tracheostomy. 2. Dysphagia, now with PEG tube. 3. History of polysubstance abuse. 4. Significant cachexia. 5. Bacterial endocarditis. The patient to: 1. Continue with antibiotics per ID. 2. Continue with mechanical ventilation. 3. Continue with pulmonary toilet. 4. Continue with tube feeding. 5. DVT and GI prophylaxis. 6. Consider subacute placement. Dictated By: ASAD DAS MD SV/BRANDO Conf#: [id number] DID#: [id number] CC: DANA CARROLL MD;*End*
[2016-07-16] VITALS (25 sets, daily range): BP systolic 101–114; BP diastolic 54–69; PULSE 100–114; RESP 16–22
[2016-07-16] MEDS: LANSOPRAZOLE 30 MG CAP GTB SCH ×2 (06:15→17:43)
--- NOTE | 2016-07-16 06:24 | CONS ---
Date/Time of Note Date/Time of Note DATE: 07/16/16 TIME: 06:20 Assessment/Plan Assessment/Plan Chief Complaint/Hosp Course Impression 1. Microcytic anemia: occult blood negative on 07-06-16. h/h slowly trending down. 2. Transaminitis - 2/2 to sepsis and HCV (HCV RNA 9, 017,009). Currently transaminase stable 3. Encephalopathy 4. Shortness of breath - hypoxemic respiratory failure - multifactorial - heart failure acute on chronic - Vent dependent - s/p trach 5. Sepsis severe 2/2 to pneumonia - tachycardia/leukocytosis - HCAP - IV cefepime, levaquin, vanc - respiratory cultures, monitor trend - improving 6. CHF - diastolic dysfunction acute on chronic - EF recent shows 40%, D shaped left ventricleMicrocytic anemia: 7. Dysphagia, s/p PEG placement, tolerating tube feeds. Recommendations: 1. continue prevacid to BID via G-tube as h/h slowly trendin downl. 2. monitor H/H, transfuse if hgb < 8 g/dL. Pt has been given IV iron as well. 3. Recommend outpatient follow-up with signal circuit designer for HCV treatment. No indication for in-patient treatment. 4. continue tube feeds and hold for residual greater than 150mL. 5. as h/h trending down, will order another occult blood to r/o GIB 6. other supportive care per primary and other consultants. 7. to resume care of this patient tomorrow. Problems: Consultation Date/Type/Reason Admit Date/Time Jun 26, 2016 at 11:39 Type of Consultation: GI Referring Provider: ASAD DAS MD, [facility] 24 HR Interval Summary Free Text/Dictation opens eyes, randomly moves head, not answering questions purposely. Per nurse, there is no issues with G-tube, no n/v Constitutional: improved Exam/Review of Systems Vital Signs Vitals Vital Signs Date Time Temp Pulse Resp B/P Pulse Ox O2 Delivery O2 Flow Rate FiO2 07/16/16 05:41 106 17 100 30 07/16/16 05:00 98.5 111/69 Mechanical Ventilator Intake and Output 07/15/16 07/15/16 07/16/16 15:00 23:00 07:00 Intake Total 2220 ml Output Total 800 ml Balance 1420 ml Exam Psych: confusion Head: atraumatic, normocephalic Eyes: EOMI, nl conjunctiva, nl lids, nl sclera ENMT: mucosa pink and moist, nl external ears & nose, nl lips & teeth, nl nasal mucosa & septum Neck: non-tender, supple Respiratory: clear to auscultation, normal air movement Cardiovascular: nl pulses, regular rate and rhythm Gastrointestinal: bowel sounds, non-tender, other (GT c/d/i), soft Results Result Diagram: 07/15/16 0610 07/15/16 0940 Results 24 hrs Laboratory Tests Test 07/15/16 08:02 07/15/16 09:40 Bedside Glucose 127 Anion Gap 13 Blood Urea Nitrogen 62 H Calcium Level 7.8 L Carbon Dioxide Level 28 Chloride Level 106 Creatinine 1.17 Glucose Level 108 Magnesium Level 2.4 Phosphorus Level 3.0 Potassium Level 3.6 Sodium Level 143 Medications Medications Current Medications Ondansetron HCl (Zofran Inj) 4 mg Q6H PRN IV NAUSEA AND/OR VOMITING; Start at 12:00 Nitroglycerin (Nitroglycerin (Sl Tab) 0.4 Mg) 1 tab Q5M PRN SL CHEST PAIN; Start 06/26/16 at 12:00 Acetaminophen (Tylenol Supp) 650 mg Q4H PRN [place] PAIN LEVEL 1-3 OR FEVER Last administered on 07/01/16 19:57; Admin Dose 650 MG; Start 06/26/16 at 12:00 Morphine Sulfate (morphine) 2 mg Q4H PRN IV PAIN LEVEL 7-10 Last administered on 07/15/16 03:44; Admin Dose 2 MG; Start 06/26/16 at 12:00 Lorazepam (Ativan) 1 mg Q2H PRN IV ANXIETY Last administered on 07/15/16 05:13 ; Admin Dose 1 MG; Start 06/26/16 at 12:00 IV Flush (NS 10 ml) 10 ml PRN PRN IV IV PROTOCOL; Start 06/27/16 at 16:30 Nystatin (Nystatin Susp) 5 ml TID PO Last administered on 07/15/16 22:02; Admin Dose 5 ML; Start 06/30/16 at 21:00 Hydralazine HCl 10 mg 10 mg Q8 PO Last administered on 07/16/16 06:14; Admin Dose 10 MG; Start 07/01/16 at 14:00 Ceftriaxone Sodium (Rocephin) 50 ml @ 100 mls/hr Q24H IVPB Last administered on 07/15/16 14:47; Admin Dose 100 MLS/HR; Start 07/12/16 at 14:30 Apixaban (Eliquis) 10 mg BID PO Last administered on 07/15/16 22:03; Admin Dose 10 MG; Start 07/14/16 at 09:30; Stop 07/20/16 at 21:01 Apixaban 5 mg 5 mg BID PO ; Start 07/21/16 at 09:00 Dextrose (D5W) 1,000 ml @ 100 mls/hr Q10H IV Last administered on 07/15/16 22 :07; Admin Dose 100 MLS/HR; Start 07/14/16 at 10:00 Metoprolol Tartrate (Lopressor) 12.5 mg BID PO Last administered on 07/15/16 10:42; Admin Dose 12.5 MG; Start 07/14/16 at 21:00 Lansoprazole (Prevacid) 30 mg BID@06,18 GTB Last administered on 07/16/16 06: 15; Admin Dose 30 MG; Start 07/15/16 at 18:00 YAYA COBOS MD Jul 16, 2016 06:24
[2016-07-16 07:49] LABS: BASOPHILS % 0.1 % (0.0-2.0); EOSINOPHILS # 0.1 10^3/ul (0.0-0.5); EOSINOPHILS % 0.6 % (0.0-7.0); HEMOGLOBIN 12.4 g/dl (14.0-18.0); LYMPHOCYTES # 1.4 10^3/ul (0.8-2.9); MEAN CORPUSCULAR HEMOGLOBIN 23.6 pg (29.0-33.0); MEAN CORPUSCULAR HGB CONC 30.9 g/dl (32.0-37.0); MEAN CORPUSCULAR VOLUME 76.6 fl (82.0-101.0); MEAN PLATELET VOLUME 12.4 fl (7.4-10.4); MONOCYTE # 0.7 10^3/ul (0.3-0.9); MONOCYTES % 6.7 % (0.0-11.0); NEUTROPHIL # 7.9 10^3/ul (1.6-7.5); NEUTROPHILS % 78.6 % (39.0-77.0); PLATELET COUNT 238 10^3/UL (140-440); RED BLOOD COUNT 5.23 10^6/ul (4.70-6.10); RED CELL DISTRIBUTION WIDTH 21.9 % (11.5-14.5); UNCORRECTED WBC 10.1 10^3/ul (4.8-10.8); WHITE BLOOD COUNT 10.1 10^3/ul (4.8-10.8)
[2016-07-16 07:51] LABS: POTASSIUM 3.4 mmol/L (3.5-5.1)
[2016-07-16 07:54] LABS: CREATININE 0.87 mg/dl (0.61-1.24)
[2016-07-16 07:55] LABS: CALCIUM 7.9 mg/dl (8.4-10.2)
[2016-07-16 08:18] LABS: CONDITION 1; LH ANALYZER COMMENTS 1; SUSPECT 1
[2016-07-16] MEDS: METOPROLOL 25 MG TAB PO SCH ×2 (09:00→21:00)
[2016-07-16] MEDS: NYSTATIN SUSP 5 ML CUP PO SCH ×3 (09:12→21:01)
[2016-07-16] MEDS: APIXABAN 5 MG TABLET PO SCH ×2 (09:12→21:00)
[2016-07-16] MEDS: DEXTROSE 5% 1,000 ML IV SCH (09:12)
--- NOTE | 2016-07-16 10:20 | PN ---
Date/Time of Note Date/Time of Note DATE: 07/16/16 TIME: 10:15 Assessment/Plan VTE Prophylaxis VTE Prophylaxis Intervention: other (Eliquis) Lines/Catheters IV Catheter Type (from Nrs): PICC Line Central line still needed: Yes Urinary Cath still in place: Yes Reason Cath still needed: urinary retention Assessment/Plan Chief Complaint/Hosp Course Assessment/Plan: 36 yo unfortunate male with a past medical history of Bacterial Endocarditis finished 6 week course of IV antibiotics, Drug abuse, Nicotine abuse, Right popliteal thrombosis, PE (on Eliquis prior to admission), Microcytic anemia, CHF - diastolic, who came for worsening shortness of breath. 1. hypoxemic respiratory failure - - multifactorial - heart failure acute on chronic - still Vent dependent - trach - f/u pulm rec's - for possible Salazar placement? 2. Mild SIRS with intermittent low grade fever / trach aspirate showed some heath and + pneumonia (HCAP) + endocarditis. Ucx also + for heath > 100,000 CFU - on PO diflucan - add IV diflucan as well - continue abx per ID 3. CHF - diastolic dysfunction acute on chronic - EF recent shows 40%, D shaped left ventricle -Ongoing diuresis with Bumex per Nephrology / patient is much improved 4. Encephalopathy: still fairly early to call permanent brain injury, continue close monitoring and status optimization for now 5. BESSIE - acute on chronic - 2/2 #2 - patient seems to be at baseline now - nephrology managing / appreciate input 6. Transaminitis - 2/2 to sepsis, monitor trend - much improved 7. PE - now on eliquis as no further intervention planned 8. Right popliteal thrombus - eliquis / no thrombus on recent LE USS 9. Microcytic anemia - monitor H/H, transfuse if hgb < 8 g/dL. Pt has been given IV iron as well. 10. GI ppx - Lansoprazole 11. DVT ppx -eliquis 12. DNR / DNI 13. S/p PEG placement for dysphagia / new trach 14. Hypernatremia - appreciate nephrology consult - resolved now - monitor, f/u renal rec's dispo -Continue supportive care and vent mgt and tube feeds. Case mgt to plan placement / probable Salazar versus subacute when cleared by pulm -Monitor fever curve and WBC count -Possible valve replacement surgery in future if more medically stable then Problems: Subjective 24 Hr Interval Summary Free Text/Dictation Per nursing, suction performed from oral and trach with mod amt of secretions, but no fevers, no acute events overnight. Exam/Review of Systems Vital Signs Vitals Vital Signs Date Time Temp Pulse Resp B/P Pulse Ox O2 Delivery O2 Flow Rate FiO2 07/16/16 09:25 79 22 99 30 07/16/16 08:31 98.3 101/65 07/16/16 05:00 Mechanical Ventilator Intake and Output 07/15/16 07/15/16 07/16/16 15:00 23:00 07:00 Intake Total 2520 ml 1620 ml Output Total 800 ml 500 ml Balance 1720 ml 1120 ml Exam Constitutional: No alert, No non-verbal, No oriented Eyes: PERRL Neck: other (trach to vent) Respiratory: diminished breath sounds Cardiovascular: murmurs/extra sounds Gastrointestinal: bowel sounds, other (PEG), soft Extremities: pitting pedal edema Neurological: No nl mental status, No nl speech, No nl strength Results Result Diagram: 07/16/16 0550 07/16/16 0550 Results 24 hrs Laboratory Tests Test 07/16/16 05:50 Anion Gap 15 Basophils # 0.0 Basophils % 0.1 Blood Morphology Comment Blood Urea Nitrogen 46 #H Calcium Level 7.9 L Carbon Dioxide Level 25 Chloride Level 105 Creatinine 0.87 Eosinophils # 0.1 Eosinophils % 0.6 Glucose Level 106 Hematocrit 40.0 L Hemoglobin 12.4 L Lymphocytes # 1.4 Lymphocytes % 14.0 L Mean Corpuscular Hemoglobin 23.6 L Mean Corpuscular Hemoglobin Concent 30.9 L Mean Corpuscular Volume 76.6 L Mean Platelet Volume 12.4 H Monocytes # 0.7 Monocytes % 6.7 Neutrophils # 7.9 H Neutrophils % 78.6 H Nucleated Red Blood Cells # 0.0 Nucleated Red Blood Cells % 0.0 Platelet Count 238 # Potassium Level 3.4 L Red Blood Count 5.23 Red Cell Distribution Width 21.9 H Sodium Level 142 White Blood Count 10.1 Medications Medications Current Medications Ondansetron HCl (Zofran Inj) 4 mg Q6H PRN IV NAUSEA AND/OR VOMITING; Start at 12:00 Nitroglycerin (Nitroglycerin (Sl Tab) 0.4 Mg) 1 tab Q5M PRN SL CHEST PAIN; Start 06/26/16 at 12:00 Acetaminophen (Tylenol Supp) 650 mg Q4H PRN [place] PAIN LEVEL 1-3 OR FEVER Last administered on 07/01/16 19:57; Admin Dose 650 MG; Start 06/26/16 at 12:00 Morphine Sulfate (morphine) 2 mg Q4H PRN IV PAIN LEVEL 7-10 Last administered on 07/15/16 03:44; Admin Dose 2 MG; Start 06/26/16 at 12:00 Lorazepam (Ativan) 1 mg Q2H PRN IV ANXIETY Last administered on 07/15/16 05:13 ; Admin Dose 1 MG; Start 06/26/16 at 12:00 IV Flush (NS 10 ml) 10 ml PRN PRN IV IV PROTOCOL; Start 06/27/16 at 16:30 Nystatin (Nystatin Susp) 5 ml TID PO Last administered on 07/16/16 09:12; Admin Dose 5 ML; Start 06/30/16 at 21:00 Hydralazine HCl 10 mg 10 mg Q8 PO Last administered on 07/16/16 06:14; Admin Dose 10 MG; Start 07/01/16 at 14:00 Ceftriaxone Sodium (Rocephin) 50 ml @ 100 mls/hr Q24H IVPB Last administered on 07/15/16 14:47; Admin Dose 100 MLS/HR; Start 07/12/16 at 14:30 Apixaban (Eliquis) 10 mg BID PO Last administered on 07/16/16 09:12; Admin Dose 10 MG; Start 07/14/16 at 09:30; Stop 07/20/16 at 21:01 Apixaban 5 mg 5 mg BID PO ; Start 07/21/16 at 09:00 Dextrose (D5W) 1,000 ml @ 100 mls/hr Q10H IV Last administered on 07/16/16 09 :12; Admin Dose 100 MLS/HR; Start 07/14/16 at 10:00 Metoprolol Tartrate (Lopressor) 12.5 mg BID PO Last administered on 07/15/16 10:42; Admin Dose 12.5 MG; Start 07/14/16 at 21:00 Lansoprazole 30 mg 30 mg BID@06,18 GTB Last administered on 07/16/16t 06:15; Admin Dose 30 MG; Start 07/15/16 at 18:00 Potassium Chloride 250 ml @ 62.5 mls/hr ONCE ONCE IVPB ; Start 07/16/16 at 10: 30; Stop 07/16/16 at 14:29 Fluconazole/ Sodium Chloride (Diflucan 100 Mg/ NS (Pmx)) 50 ml @ 50 mls/hr Q24H IVPB ; Start 07/16/16 at 10:30; Status ROBERTO BAKER Jul 16, 2016 10:20
[2016-07-16] MEDS ORDERED: POTASSIUM CHLORIDE 250 ML IVPB ONE (10:30)
[2016-07-16] MEDS: FLUCONAZOLE 100 MG/NS (PMX) 50 ML IVPB SCH (11:39)
--- NOTE | 2016-07-16 12:29 | CONS ---
Date/Time of Note Date/Time of Note DATE: 07/16/16 TIME: 12:27 Assessment/Plan Assessment/Plan Additional Assessment/Plan 1. Hypernatremia has resolved, will red D5W 2. Hypokalemia, will replete 3. Renal fx is stable, will reeval maelia for diuretic tomm Consultation Date/Type/Reason Admit Date/Time Jun 26, 2016 at 11:39 Type of Consultation: GI Referring Provider: ASAD DAS MD, [facility] 24 HR Interval Summary Subjective hx not possible: other (On vent, trach in place) Exam/Review of Systems Vital Signs Vitals Vital Signs Date Time Temp Pulse Resp B/P Pulse Ox O2 Delivery O2 Flow Rate FiO2 07/16/16 12:23 107 07/16/16 12:13 98.2 16 106/61 100 07/16/16 11:10 30 07/16/16 05:00 Mechanical Ventilator Intake and Output 07/15/16 07/15/16 07/16/16 15:00 23:00 07:00 Intake Total 2520 ml 1620 ml Output Total 800 ml 500 ml Balance 1720 ml 1120 ml Exam Neck: No jvd Respiratory: diminished breath sounds Cardiovascular: regular rate and rhythm Gastrointestinal: soft Extremities: edema (pedal is unchanged) Results Result Diagram: 07/16/16 0550 07/16/16 0550 Results 24 hrs Laboratory Tests Test 07/16/16 05:50 Anion Gap 15 Basophils # 0.0 Basophils % 0.1 Blood Morphology Comment Blood Urea Nitrogen 46 #H Calcium Level 7.9 L Carbon Dioxide Level 25 Chloride Level 105 Creatinine 0.87 Eosinophils # 0.1 Eosinophils % 0.6 Glucose Level 106 Hematocrit 40.0 L Hemoglobin 12.4 L Lymphocytes # 1.4 Lymphocytes % 14.0 L Mean Corpuscular Hemoglobin 23.6 L Mean Corpuscular Hemoglobin Concent 30.9 L Mean Corpuscular Volume 76.6 L Mean Platelet Volume 12.4 H Monocytes # 0.7 Monocytes % 6.7 Neutrophils # 7.9 H Neutrophils % 78.6 H Nucleated Red Blood Cells # 0.0 Nucleated Red Blood Cells % 0.0 Platelet Count 238 # Potassium Level 3.4 L Red Blood Count 5.23 Red Cell Distribution Width 21.9 H Sodium Level 142 White Blood Count 10.1 Medications Medications Current Medications Ondansetron HCl (Zofran Inj) 4 mg Q6H PRN IV NAUSEA AND/OR VOMITING; Start at 12:00 Nitroglycerin (Nitroglycerin (Sl Tab) 0.4 Mg) 1 tab Q5M PRN SL CHEST PAIN; Start 06/26/16 at 12:00 Acetaminophen (Tylenol Supp) 650 mg Q4H PRN [place] PAIN LEVEL 1-3 OR FEVER Last administered on 07/01/16 19:57; Admin Dose 650 MG; Start 06/26/16 at 12:00 Morphine Sulfate (morphine) 2 mg Q4H PRN IV PAIN LEVEL 7-10 Last administered on 07/15/16 03:44; Admin Dose 2 MG; Start 06/26/16 at 12:00 Lorazepam (Ativan) 1 mg Q2H PRN IV ANXIETY Last administered on 07/15/16 05:13 ; Admin Dose 1 MG; Start 06/26/16 at 12:00 IV Flush (NS 10 ml) 10 ml PRN PRN IV IV PROTOCOL; Start 06/27/16 at 16:30 Nystatin (Nystatin Susp) 5 ml TID PO Last administered on 07/16/16 09:12; Admin Dose 5 ML; Start 06/30/16 at 21:00 Hydralazine HCl 10 mg 10 mg Q8 PO Last administered on 07/16/16 06:14; Admin Dose 10 MG; Start 07/01/16 at 14:00 Ceftriaxone Sodium (Rocephin) 50 ml @ 100 mls/hr Q24H IVPB Last administered on 07/15/16 14:47; Admin Dose 100 MLS/HR; Start 07/12/16 at 14:30 Apixaban (Eliquis) 10 mg BID PO Last administered on 07/16/16 09:12; Admin Dose 10 MG; Start 07/14/16 at 09:30; Stop 07/20/16 at 21:01 Apixaban 5 mg 5 mg BID PO ; Start 07/21/16 at 09:00 Dextrose (D5W) 1,000 ml @ 40 mls/hr Q24H IV Last administered on 07/16/16 09: 12; Admin Dose 100 MLS/HR; Start 07/14/16 at 10:00 Metoprolol Tartrate (Lopressor) 12.5 mg BID PO Last administered on 07/15/16 10:42; Admin Dose 12.5 MG; Start 07/14/16 at 21:00 Lansoprazole 30 mg 30 mg BID@06,18 GTB Last administered on 07/16/16 06:15; Admin Dose 30 MG; Start 07/15/16 at 18:00 Potassium Chloride 250 ml @ 62.5 mls/hr ONCE ONCE IVPB Last administered on 10:48; Admin Dose 62.5 MLS/HR; Start 07/16/16 at 10:30; Stop 07/16/16 at 14:29 Fluconazole/ Sodium Chloride (Diflucan 100 Mg/ NS (Pmx)) 50 ml @ 50 mls/hr Q24H IVPB Last administered on 07/16/16 11:39; Admin Dose 50 MLS/HR; Start at 11:00 Potassium Chloride (Potassium Chloride Pwd/Soln) 20 meq DAILY NGT ; Start at 12:30; Status UNV Potassium Chloride (Potassium Chloride Pwd/Soln) 20 meq DAILY NGT ; Start at 12:30; Status UNV TAMMIE GARCIA MD Jul 16, 2016 12:29
[2016-07-16] MEDS ORDERED: POTASSIUM CHLORIDE 20 MEQ POWDER FOR ORAL SOLN NGT SCH ×2 (12:30)
[2016-07-16] MEDS: POTASSIUM CHLORIDE 20 MEQ POWDER FOR ORAL SOLN NGT SCH (13:13)
--- NOTE | 2016-07-16 13:24 | CONS ---
Date/Time of Note Date/Time of Note DATE: 07/16/16 TIME: 13:21 Assessment/Plan Assessment/Plan Chief Complaint/Hosp Course IMPRESSION: 1. Congestive heart failure exacerbation, systolic, acute on chronic with last known EF approximately 40% by echo May 2016.-improved volume status 2. Aortic regurgitation, moderate to severe with possible ongoing vegetation by most recent echo May 2016. 3. Mitral regurgitation, moderate to severe. 4. History of recent endocarditis status post 6-week course of antibiotics. 5. Cardiomyopathy with decreased left ventricular ejection fraction last approximately 40% by echo 06/14/2016. 6. Coagulopathy-resolved 7. Renal failure-slowly improving again 9. Increased LFTs-improving 10. Increased Na 12. Mild anemia. 13.Resp failure s/p trach 14. s/p Code blue 15.DNR 16.dysphagia s/p G tube Recc: -Tele -Low dose BB/hydralazine as tolerated only following BP/HR closely -Now on apixaban -Per CT surgery not a candidate for valve replacement at this time due to high risk -F/U blood cultures -Continue abx's -Follow volume status closely, currently off of bumex-clear lungs by cxr 07/15 -Free water for increased NA Problems: Consultation Date/Type/Reason Admit Date/Time Jun 26, 2016 at 11:39 Initial Consult Date 06/27/2016 Type of Consultation: Cardiology Reason for Consultation CHF Referring Provider: ASAD DAS MD, [facility] Exam/Review of Systems Vital Signs Vitals Vital Signs Date Time Temp Pulse Resp B/P Pulse Ox O2 Delivery O2 Flow Rate FiO2 07/16/16 12:23 107 07/16/16 12:13 98.2 16 106/61 100 07/16/16 11:10 30 07/16/16 05:00 Mechanical Ventilator Intake and Output 07/15/16 07/15/16 07/16/16 15:00 23:00 07:00 Intake Total 2520 ml 1620 ml Output Total 800 ml 500 ml Balance 1720 ml 1120 ml Exam Review of Systems: CONSTITUTIONAL: No fevers, chills. PULMONARY: trached CARDIOVASCULAR: No obvious chest pain/palpitations GASTROINTESTINAL: No nausea/vomiting. GENITOURINARY: No hematuria/dysuria. MUSCULOSKELETAL: No obvious myagias/arthalgias. PSYCHIATRIC: The patient denies depression. NEUROLOGIC: lethargic Constitutional: other (sleeping) Head: normocephalic ENMT: mucosa pink and moist Neck: jvd (9 cm water), supple Respiratory: diminished breath sounds (at bases/B) Cardiovascular: regular rate and rhythm Gastrointestinal: non-tender, soft Musculoskeletal: muscle tone (normal) Extremities: pitting pedal edema (Bilateral LE) Neurological: lethargic Results Result Diagram: 07/16/16 0550 07/16/16 0550 Results 24 hrs Laboratory Tests Test 07/16/16 05:50 Anion Gap 15 Basophils # 0.0 Basophils % 0.1 Blood Morphology Comment Blood Urea Nitrogen 46 #H Calcium Level 7.9 L Carbon Dioxide Level 25 Chloride Level 105 Creatinine 0.87 Eosinophils # 0.1 Eosinophils % 0.6 Glucose Level 106 Hematocrit 40.0 L Hemoglobin 12.4 L Lymphocytes # 1.4 Lymphocytes % 14.0 L Mean Corpuscular Hemoglobin 23.6 L Mean Corpuscular Hemoglobin Concent 30.9 L Mean Corpuscular Volume 76.6 L Mean Platelet Volume 12.4 H Monocytes # 0.7 Monocytes % 6.7 Neutrophils # 7.9 H Neutrophils % 78.6 H Nucleated Red Blood Cells # 0.0 Nucleated Red Blood Cells % 0.0 Platelet Count 238 # Potassium Level 3.4 L Red Blood Count 5.23 Red Cell Distribution Width 21.9 H Sodium Level 142 White Blood Count 10.1 Medications Medications Current Medications Ondansetron HCl (Zofran Inj) 4 mg Q6H PRN IV NAUSEA AND/OR VOMITING; Start at 12:00 Nitroglycerin (Nitroglycerin (Sl Tab) 0.4 Mg) 1 tab Q5M PRN SL CHEST PAIN; Start 06/26/16 at 12:00 Acetaminophen (Tylenol Supp) 650 mg Q4H PRN [place] PAIN LEVEL 1-3 OR FEVER Last administered on 07/01/16 19:57; Admin Dose 650 MG; Start 06/26/16 at 12:00 Morphine Sulfate (morphine) 2 mg Q4H PRN IV PAIN LEVEL 7-10 Last administered on 07/15/16 03:44; Admin Dose 2 MG; Start 06/26/16 at 12:00 Lorazepam (Ativan) 1 mg Q2H PRN IV ANXIETY Last administered on 07/15/16 05:13 ; Admin Dose 1 MG; Start 06/26/16 at 12:00 IV Flush (NS 10 ml) 10 ml PRN PRN IV IV PROTOCOL; Start 06/27/16 at 16:30 Nystatin 5 ml 5 ml TID PO Last administered on 07/16/16 13:12; Admin Dose 5 ML ; Start 06/30/16 at 21:00 Ceftriaxone Sodium (Rocephin) 50 ml @ 100 mls/hr Q24H IVPB Last administered on 07/15/16 14:47; Admin Dose 100 MLS/HR; Start 07/12/16 at 14:30 Apixaban (Eliquis) 10 mg BID PO Last administered on 07/16/16 09:12; Admin Dose 10 MG; Start 07/14/16 at 09:30; Stop 07/20/16 at 21:01 Apixaban 5 mg 5 mg BID PO ; Start 07/21/16 at 09:00 Dextrose (D5W) 1,000 ml @ 40 mls/hr Q24H IV Last administered on 07/16/16 09: 12; Admin Dose 100 MLS/HR; Start 07/14/16 at 10:00 Metoprolol Tartrate (Lopressor) 12.5 mg BID PO Last administered on 07/15/16 10:42; Admin Dose 12.5 MG; Start 07/14/16 at 21:00 Lansoprazole 30 mg 30 mg BID@06,18 GTB Last administered on 07/16/16 06:15; Admin Dose 30 MG; Start 07/15/16 at 18:00 Potassium Chloride 250 ml @ 62.5 mls/hr ONCE ONCE IVPB Last administered on 10:48; Admin Dose 62.5 MLS/HR; Start 07/16/16 at 10:30; Stop 07/16/16 at 14:29 Fluconazole/ Sodium Chloride (Diflucan 100 Mg/ NS (Pmx)) 50 ml @ 50 mls/hr Q24H IVPB Last administered on 07/16/16 11:39; Admin Dose 50 MLS/HR; Start at 11:00 Potassium Chloride (Potassium Chloride Pwd/Soln) 30 meq DAILY NGT Last administered on 07/16/16 13:13; Admin Dose 30 MEQ; Start 07/16/16 at 12:30 [employer] Jul 16, 2016 13:24
[2016-07-16] MEDS: CEFTRIAXONE 2 GM/50 ML (PMX) 50 ML IVPB SCH (14:04)
--- NOTE | 2016-07-16 16:07 | CONS ---
Date/Time of Note Date/Time of Note DATE: 07/16/16 TIME: 16:06 Assessment/Plan Assessment/Plan Chief Complaint/Hosp Course ID PROGRESS NOTE TOTAL ABX DAY #5 => Ceftriaxone s/p Vanco IV,Cefepime, Levaquin 24H INTERVAL SUMMARY * Encephalopathy persisting - opens eyes, not tracking, no new issues * Vented, VSS, no fever, appears comfortable * s/p TRACH placement 07/13/16 * TMax 07/12/16 @ 99.5, WBC normalized PHYSICAL EXAMINATION: GENERAL: 36 yo M, VSS, NAD, Vented HEENT: Unremarkable NECK: New Trach secure, scant secretions CHEST: Rise symmetrical. Scattered coarse BS HEART: NSR on tele ABDOMEN: Soft EXTREMITIES: Warm w/generalized dependent edema x4 SKIN: Multiple tattoos ID ASSESSMENT: 36 yo M w/PMHx IVDU w/(+)HCV, (-)HIV screen admit with: 1. Mild SIRS with low grade fever / tachy / leucocytosis: IMPROVED * s/p Sepsis = RESOLVED 2. Acute hypoxemic respiratory failure = MULTIFACTORIAL -> s/p TRACH 07/13/16 3. Acute CHF exacerbation due to Cardiomyopathy with diminished ejection fraction w/ Aortic & Mitral regurgitation. 4. Aortic and mitral valve vegetations with a history of alpha hemolytic streptococcus septicemia in March 2016. * s/p 6 weeks ABX Rx completed 5. Resolving Pneumonia: Combined aspiration pneumonia vs community-acquired pneumonia on admission => Now concern VAP * Sputum cx (+)C.Albicans, possibly from oral contamination = SCANT 6. Acute renal failure 7. Anemia. 8. Coagulopathy w/R popliteal DVT -> s/p PE on Eliquis 9. Transaminitis 2nd to sepsis on admission INVASIVES: Trach, peg, Merino, PICC line. CURRENT ABX: Ceftriaxone 07/12/16 = #5 + Nystatin oral care s/p Vancomycin IV, Cefepime, Levaquin ID RECOMMENDATIONS: CONTINUE Current ABX PER NOTES: Pending TNS to Med-Surg w/plans for [facility]MAN Evaluation . . Problems: Consultation Date/Type/Reason Admit Date/Time Jun 26, 2016 at 11:39 Type of Consultation: ID Referring Provider: ASAD DAS MD, FCCP Exam/Review of Systems Vital Signs Vitals Vital Signs Date Time Temp Pulse Resp B/P Pulse Ox O2 Delivery O2 Flow Rate FiO2 07/16/16 15:25 115 19 98 30 07/16/16 12:13 98.2 106/61 07/16/16 05:00 Mechanical Ventilator Intake and Output 07/15/16 07/15/16 07/16/16 15:00 23:00 07:00 Intake Total 2520 ml 1620 ml Output Total 800 ml 500 ml Balance 1720 ml 1120 ml Results Result Diagram: 07/16/16 0550 07/16/16 0550 Results 24 hrs Laboratory Tests Test 07/16/16 05:50 Anion Gap 15 Basophils # 0.0 Basophils % 0.1 Blood Morphology Comment Blood Urea Nitrogen 46 #H Calcium Level 7.9 L Carbon Dioxide Level 25 Chloride Level 105 Creatinine 0.87 Eosinophils # 0.1 Eosinophils % 0.6 Glucose Level 106 Hematocrit 40.0 L Hemoglobin 12.4 L Lymphocytes # 1.4 Lymphocytes % 14.0 L Mean Corpuscular Hemoglobin 23.6 L Mean Corpuscular Hemoglobin Concent 30.9 L Mean Corpuscular Volume 76.6 L Mean Platelet Volume 12.4 H Monocytes # 0.7 Monocytes % 6.7 Neutrophils # 7.9 H Neutrophils % 78.6 H Nucleated Red Blood Cells # 0.0 Nucleated Red Blood Cells % 0.0 Platelet Count 238 # Potassium Level 3.4 L Red Blood Count 5.23 Red Cell Distribution Width 21.9 H Sodium Level 142 White Blood Count 10.1 Medications Medications Current Medications Ondansetron HCl (Zofran Inj) 4 mg Q6H PRN IV NAUSEA AND/OR VOMITING; Start at 12:00 Nitroglycerin (Nitroglycerin (Sl Tab) 0.4 Mg) 1 tab Q5M PRN SL CHEST PAIN; Start 06/26/16 at 12:00 Acetaminophen (Tylenol Supp) 650 mg Q4H PRN [place] PAIN LEVEL 1-3 OR FEVER Last administered on 07/01/16 19:57; Admin Dose 650 MG; Start 06/26/16 at 12:00 Morphine Sulfate (morphine) 2 mg Q4H PRN IV PAIN LEVEL 7-10 Last administered on 07/15/16 03:44; Admin Dose 2 MG; Start 06/26/16 at 12:00 Lorazepam (Ativan) 1 mg Q2H PRN IV ANXIETY Last administered on 07/15/16 05:13 ; Admin Dose 1 MG; Start 06/26/16 at 12:00 IV Flush (NS 10 ml) 10 ml PRN PRN IV IV PROTOCOL; Start 06/27/16 at 16:30 Nystatin 5 ml 5 ml TID PO Last administered on 07/16/16 13:12; Admin Dose 5 ML ; Start 06/30/16 at 21:00 Ceftriaxone Sodium (Rocephin) 50 ml @ 100 mls/hr Q24H IVPB Last administered on 07/16/16 14:04; Admin Dose 100 MLS/HR; Start 07/12/16 at 14:30 Apixaban (Eliquis) 10 mg BID PO Last administered on 07/16/16 09:12; Admin Dose 10 MG; Start 07/14/16 at 09:30; Stop 07/20/16 at 21:01 Apixaban 5 mg 5 mg BID PO ; Start 07/21/16 at 09:00 Dextrose (D5W) 1,000 ml @ 40 mls/hr Q24H IV Last administered on 07/16/16 09: 12; Admin Dose 100 MLS/HR; Start 07/14/16 at 10:00 Metoprolol Tartrate (Lopressor) 12.5 mg BID PO Last administered on 07/15/16 10:42; Admin Dose 12.5 MG; Start 07/14/16 at 21:00 Lansoprazole 30 mg 30 mg BID@06,18 GTB Last administered on 07/16/16 06:15; Admin Dose 30 MG; Start 07/15/16 at 18:00 Fluconazole/ Sodium Chloride (Diflucan 100 Mg/ NS (Pmx)) 50 ml @ 50 mls/hr Q24H IVPB Last administered on 07/16/16 11:39; Admin Dose 50 MLS/HR; Start at 11:00 Potassium Chloride (Potassium Chloride Pwd/Soln) 30 meq DAILY NGT Last administered on 07/16/16 13:13; Admin Dose 30 MEQ; Start 07/16/16 at 12:30 Collagenase (Santyl) 1 applic DAILY TOP ; Start 07/16/16 at 16:30 MARIO MCCAIN NP Jul 16, 2016 16:07
[2016-07-16] MEDS: COLLAGENASE 30 GM TUBE TOP SCH (16:31)
[2016-07-17] VITALS (26 sets, daily range): BP systolic 102–123; BP diastolic 51–69; PULSE 73–114; RESP 16–30
[2016-07-17] MEDS ORDERED: VANCOMYCIN IV PER PHARMACY XX SCH
[2016-07-17] MEDS: ACETAMINOPHEN 650MG/20.3ML CUP GTB PRN ×3 (00:18→08:36)
[2016-07-17] MEDS ORDERED: VANCOMYCIN 2 GM in SOD CHLORIDE 0.9% 500 ML IVPB SCH (01:00)
[2016-07-17 03:17] LABS: ADD UMIC YES; URINE BILIRUBIN (Dip) 1+ (NEGATIVE); URINE BLOOD (Dip) 3+ (NEGATIVE); URINE COLOR DK. YELLOW (YELLOW); URINE GLUCOSE (Dip) NEGATIVE (NEGATIVE); URINE KETONES (Dip) NEGATIVE (NEGATIVE); URINE LEUKOCYTE ESTERASE (Dip) 1+ (NEGATIVE); URINE NITRITE (Dip) NEGATIVE (NEGATIVE); URINE TOTAL PROTEIN (Dip) 2+ (NEGATIVE); URINE UROBILINOGEN (Dip) 0.2 E.U./dL (0.1-1.0)
[2016-07-17 03:28] LABS: ICTOTEST POSITIVE (NEGATIVE)
[2016-07-17 03:29] LABS: BACTERIA,URINE FEW; SQUAMOUS EPITHELIAL CELL,UR FEW
[2016-07-17] MEDS: LANSOPRAZOLE 30 MG CAP GTB SCH ×2 (05:48→17:54)
[2016-07-17 07:18] LABS: POTASSIUM 4.3 mmol/L (3.5-5.1)
[2016-07-17 07:20] LABS: CREATININE 0.93 mg/dl (0.61-1.24)
[2016-07-17 07:21] LABS: CALCIUM 7.8 mg/dl (8.4-10.2)
[2016-07-17 07:29] LABS: BASOPHILS % 0.2 % (0.0-2.0); EOSINOPHILS % 0.2 % (0.0-7.0); HEMATOCRIT 39.8 % (42.0-52.0); HEMOGLOBIN 12.3 g/dl (14.0-18.0); LYMPHOCYTES # 1.3 10^3/ul (0.8-2.9); MEAN CORPUSCULAR HEMOGLOBIN 23.7 pg (29.0-33.0); MEAN CORPUSCULAR VOLUME 76.7 fl (82.0-101.0); MEAN PLATELET VOLUME 12.2 fl (7.4-10.4); MONOCYTE # 0.8 10^3/ul (0.3-0.9); NEUTROPHILS % 78.6 % (39.0-77.0); PLATELET COUNT 254 10^3/UL (140-440); RED BLOOD COUNT 5.19 10^6/ul (4.70-6.10); RED CELL DISTRIBUTION WIDTH 22.4 % (11.5-14.5); UNCORRECTED WBC 10.2 10^3/ul (4.8-10.8); WHITE BLOOD COUNT 10.2 10^3/ul (4.8-10.8)
[2016-07-17 07:45] LABS: CONDITION 1; LH ANALYZER COMMENTS 1; NUCLEATED RED BLOOD CELLS # 0.2 10^3/ul (0.0-0.0); SUSPECT 1
[2016-07-17] MEDS: POTASSIUM CHLORIDE 20 MEQ POWDER FOR ORAL SOLN NGT SCH (08:31)
[2016-07-17] MEDS: APIXABAN 5 MG TABLET PO SCH ×2 (08:35→21:04)
[2016-07-17] MEDS: NYSTATIN SUSP 5 ML CUP PO SCH ×3 (08:36→21:05)
[2016-07-17] MEDS: METOPROLOL 25 MG TAB PO SCH ×2 (08:37→21:05)
--- NOTE | 2016-07-17 09:39 | RADRPT ---
PROCEDURE: XR Chest AP portable CLINICAL INDICATION: Fever TECHNIQUE: An AP portable radiograph of the chest was submitted. COMPARISON: 07/15/2016 FINDINGS: Support Hardware: The tracheostomy tube and the left upper extremity PICC catheter is stable in posi tioning. Cardiovascular: The heart remains moderately enlarged of the piriform plantar vasculature appears un remarkable. Lung Kline: Atelectasis or infiltrate is again seen to the heart with in the left lower lobe, uncha nged. Pleural Spaces: No pneumothorax or pleural effusion is identified. Osseous Structures: The osseous structures appear intact. Soft Tissues: Appear unremarkable. IMPRESSION: 1. The tubes and lines are stable in positioning. 2. Persistent cardiomegaly without CHF. 3. No change to the infiltrate or atelectasis seen through the heart within left lower lobe. Physician Tania Date Time Electronically viewed and signed by Azul Connell Physician on 07/17/2016 09:39 /
[2016-07-17] MEDS: COLLAGENASE 30 GM TUBE TOP SCH (09:54)
[2016-07-17] MEDS: FLUCONAZOLE 100 MG/NS (PMX) 50 ML IVPB SCH (10:51)
--- NOTE | 2016-07-17 10:57 | PN ---
Date/Time of Note Date/Time of Note DATE: 07/17/16 TIME: 10:56 Assessment/Plan VTE Prophylaxis VTE Prophylaxis Intervention: other (Eliquis) Lines/Catheters IV Catheter Type (from Nrs): PICC Line Central line still needed: Yes Urinary Cath still in place: Yes Reason Cath still needed: urinary retention Assessment/Plan Chief Complaint/Hosp Course Assessment/Plan: 36 yo unfortunate male with a past medical history of Bacterial Endocarditis finished 6 week course of IV antibiotics, Drug abuse, Nicotine abuse, Right popliteal thrombosis, PE (on Eliquis prior to admission), Microcytic anemia, CHF - diastolic, who came for worsening shortness of breath. 1. hypoxemic respiratory failure - - multifactorial - heart failure acute on chronic - still Vent dependent - trach - f/u pulm rec's - for possible [facility] placement? 2. Mild SIRS with intermittent low grade fever / trach aspirate showed some heath and + pneumonia (HCAP) + endocarditis. Ucx also + for heath > 100,000 CFU - on PO diflucan - add IV diflucan as well - continue abx per ID 3. CHF - diastolic dysfunction acute on chronic - EF recent shows 40%, D shaped left ventricle -Ongoing diuresis with Bumex per Nephrology / patient is much improved 4. Encephalopathy: still fairly early to call permanent brain injury, continue close monitoring and status optimization for now 5. BESSIE - acute on chronic - 2/2 #2 - patient seems to be at baseline now - nephrology managing / appreciate input 6. Transaminitis - 2/2 to sepsis, monitor trend - much improved 7. PE - now on eliquis as no further intervention planned at the present time 8. Right popliteal thrombus - eliquis / no thrombus on recent LE USS 9. Microcytic anemia - monitor H/H, transfuse if hgb < 8 g/dL. Pt has been given IV iron as well. 10. GI ppx - Lansoprazole 11. DVT ppx -eliquis 12. DNR / DNI 13. S/p PEG placement for dysphagia / new trach 14. Hypernatremia - appreciate nephrology consult - resolved now - monitor, f/u renal rec's dispo -Continue supportive care and vent mgt and tube feeds. Case mgt to plan placement / probable [facility] versus subacute when cleared by pulm -Monitor fever curve and WBC count -Possible valve replacement surgery in future if more medically stable then Problems: Subjective 24 Hr Interval Summary Free Text/Dictation Pt had fever last night. Cx's drawn. Exam/Review of Systems Vital Signs Vitals Vital Signs Date Time Temp Pulse Resp B/P Pulse Ox O2 Delivery O2 Flow Rate FiO2 07/17/16 09:50 109 30 99 30 07/17/16 07:30 98.7 107/58 07/16/16 05:00 Mechanical Ventilator Intake and Output 07/16/16 07/16/16 07/17/16 15:00 23:00 07:00 Intake Total 300 ml 580 ml 1620 ml Output Total 500 ml 620 ml Balance 300 ml 80 ml 1000 ml Exam Constitutional: No alert, No non-verbal, No oriented Eyes: PERRL Neck: other (trach to vent) Respiratory: diminished breath sounds Cardiovascular: murmurs/extra sounds Gastrointestinal: bowel sounds, other (PEG), soft Extremities: pitting pedal edema Neurological: No nl mental status, No nl speech, No nl strength Results Result Diagram: 07/17/1662507/17/16 06 Results 24 hrs Laboratory Tests Test 07/16/16 14:50 07/17/16 00:01 07/17/16 06:26 Stool Occult Blood NEGATIVE Urine Bacteria FEW Urine Bilirubin 1+ H Urine Clarity SLIGHTLY CLOUDY Urine Color DK. YELLOW Urine Glucose NEGATIVE Urine Hemoglobin 3+ H Urine Ictotest POSITIVE Urine Ketones NEGATIVE Urine Leukocyte Esterase 1+ H Urine Microscopic RBC 10-25 Urine Microscopic WBC >50 Urine Nitrite NEGATIVE Urine Specific [place] >=1.030 H Urine Squamous Epithelial Cells FEW Urine Total Protein 2+ H Urine Urobilinogen 0.2 E.U./dL Urine Yeast MODERATE Urine pH 5.5 Anion Gap 14 Basophils # 0.0 Basophils % 0.2 Blood Morphology Comment Blood Urea Nitrogen 47 H Calcium Level 7.8 L Carbon Dioxide Level 24 Chloride Level 107 Creatinine 0.93 Differential Comment AUTO w/SCAN Eosinophils # 0.0 Eosinophils % 0.2 Glucose Level 119 Hematocrit 39.8 L Hemoglobin 12.3 L Large Platelets 1+ Lymphocytes # 1.3 Lymphocytes % 13.0 L Mean Corpuscular Hemoglobin 23.7 L Mean Corpuscular Hemoglobin Concent 31.0 L Mean Corpuscular Volume 76.7 L Mean Platelet Volume 12.2 H Monocytes # 0.8 Monocytes % 8.0 Neutrophils # 8.0 H Neutrophils % 78.6 H Nucleated Red Blood Cells # 0.2 H Nucleated Red Blood Cells % 0.0 Platelet Count 254 Potassium Level 4.3 Red Blood Count 5.19 Red Cell Distribution Width 22.4 H Sodium Level 141 White Blood Count 10.2 Medications Medications Current Medications Ondansetron HCl (Zofran Inj) 4 mg Q6H PRN IV NAUSEA AND/OR VOMITING; Start at 12:00 Nitroglycerin (Nitroglycerin (Sl Tab) 0.4 Mg) 1 tab Q5M PRN SL CHEST PAIN; Start 06/26/16 at 12:00 Morphine Sulfate (morphine) 2 mg Q4H PRN IV PAIN LEVEL 7-10 Last administered on 07/15/16 03:44; Admin Dose 2 MG; Start 06/26/16 at 12:00 Lorazepam (Ativan) 1 mg Q2H PRN IV ANXIETY Last administered on 07/15/16 05:13 ; Admin Dose 1 MG; Start 06/26/16 at 12:00 IV Flush (NS 10 ml) 10 ml PRN PRN IV IV PROTOCOL; Start 06/27/16 at 16:30 Nystatin 5 ml 5 ml TID PO Last administered on 07/17/16 08:36; Admin Dose 5 ML ; Start 06/30/16 at 21:00 Ceftriaxone Sodium (Rocephin) 50 ml @ 100 mls/hr Q24H IVPB Last administered on 07/16/16 14:04; Admin Dose 100 MLS/HR; Start 07/12/16 at 14:30 Apixaban (Eliquis) 10 mg BID PO Last administered on 07/17/16 08:35; Admin Dose 10 MG; Start 07/14/16 at 09:30; Stop 07/20/16 at 21:01 Apixaban 5 mg 5 mg BID PO ; Start 07/21/16 at 09:00 Dextrose (D5W) 1,000 ml @ 40 mls/hr Q24H IV Last administered on 07/16/16 09: 12; Admin Dose 100 MLS/HR; Start 07/14/16 at 10:00 Metoprolol Tartrate (Lopressor) 12.5 mg BID PO Last administered on 07/17/16 08:37; Admin Dose 12.5 MG; Start 07/14/16 at 21:00 Lansoprazole 30 mg 30 mg BID@06,18 GTB Last administered on 07/17/16 05:48; Admin Dose 30 MG; Start 07/15/16 at 18:00 Fluconazole/ Sodium Chloride (Diflucan 100 Mg/ NS (Pmx)) 50 ml @ 50 mls/hr Q24H IVPB Last administered on 07/17/16 10:51; Admin Dose 50 MLS/HR; Start at 11:00 Potassium Chloride (Potassium Chloride Pwd/Soln) 30 meq DAILY NGT Last administered on 07/17/16 08:31; Admin Dose 30 MEQ; Start 07/16/16 at 12:30 Collagenase (Santyl) 1 applic DAILY TOP Last administered on 07/17/16 09:54; Admin Dose 1 APPLIC; Start 07/16/16 at 16:30 Acetaminophen 650 mg 650 mg Q4H PRN GTB PAIN AND OR ELEVATED TEMP Last administered on 07/17/16 08:36; Admin Dose 650 MG; Start 07/17/16 at 00:00 Vancomycin HCl/ Sodium Chloride (Vancocin/NS) 500 ml @ 125 mls/hr Q24H IVPB Last administered on 07/17/16 01:04; Admin Dose 125 MLS/HR; Start 07/17/16 at 01:00 ROBERTO DAVISON Jul 17, 2016 10:57
[2016-07-17] MEDS: DEXTROSE 5% 1,000 ML IV SCH ×2 (12:00→16:01)
--- NOTE | 2016-07-17 14:28 | CONS ---
Date/Time of Note Date/Time of Note DATE: 07/17/16 TIME: 14:25 Assessment/Plan Assessment/Plan Additional Assessment/Plan 1. Microcytic anemia: occult blood negative on 07-16-16. h/h slowly trending down but stable. 2. Transaminitis - 2/2 to sepsis and HCV (HCV RNA 9, 017,009). Currently transaminase stable 3. Encephalopathy 4. Shortness of breath - hypoxemic respiratory failure - multifactorial - heart failure acute on chronic - Vent dependent - s/p trach 5. Sepsis severe 2/2 to pneumonia - tachycardia/leukocytosis - HCAP - IV cefepime, levaquin, vanc - respiratory cultures, monitor trend - improving 6. CHF - diastolic dysfunction acute on chronic - EF recent shows 40%, D shaped left ventricle 7. Dysphagia, s/p PEG placement, tolerating tube feeds. Recommendations: 1. continue prevacid to BID via G-tube as h/h slowly trending down. 2. monitor H/H, transfuse if hgb < 8 g/dL. Pt has been given IV iron as well. 3. Recommend outpatient follow-up with candle wrapping machine operator for HCV treatment. No indication for in-patient treatment. 4. continue tube feeds and hold for residual greater than 150mL. 5. other supportive care per primary and other consultants. 6. Patient seen in collaboration with . Consultation Date/Type/Reason Admit Date/Time Jun 26, 2016 at 11:39 Type of Consultation: Gastroenterology Referring Provider: ASAD DAS MD, [facility] 24 HR Interval Summary Free Text/Dictation Tube feed at 35 with minimal residual Stool OB negative Hemoglobin stable We will advance tube feeds at goal rate of 45 mill per hour Exam/Review of Systems Vital Signs Vitals Vital Signs Date Time Temp Pulse Resp B/P Pulse Ox O2 Delivery O2 Flow Rate FiO2 07/17/16 12:27 106 07/17/16 11:46 30 98 30 07/17/16 11:10 98.5 123/69 07/16/16 05:00 Mechanical Ventilator Intake and Output 07/16/16 07/16/16 07/17/16 15:00 23:00 07:00 Intake Total 300 ml 580 ml 1620 ml Output Total 500 ml 620 ml Balance 300 ml 80 ml 1000 ml Results Result Diagram: 07/17/16 0626 07/17/16 0626 Results 24 hrs Laboratory Tests Test 07/16/16 14:50 07/17/16 00:01 07/17/16 06:26 Stool Occult Blood NEGATIVE Urine Bacteria FEW Urine Bilirubin 1+ H Urine Clarity SLIGHTLY CLOUDY Urine Color DK. YELLOW Urine Glucose NEGATIVE Urine Hemoglobin 3+ H Urine Ictotest POSITIVE Urine Ketones NEGATIVE Urine Leukocyte Esterase 1+ H Urine Microscopic RBC 10-25 Urine Microscopic WBC >50 Urine Nitrite NEGATIVE Urine Specific [place] >=1.030 H Urine Squamous Epithelial Cells FEW Urine Total Protein 2+ H Urine Urobilinogen 0.2 E.U./dL Urine Yeast MODERATE Urine pH 5.5 Anion Gap 14 Basophils # 0.0 Basophils % 0.2 Blood Morphology Comment Blood Urea Nitrogen 47 H Calcium Level 7.8 L Carbon Dioxide Level 24 Chloride Level 107 Creatinine 0.93 Differential Comment AUTO w/SCAN Eosinophils # 0.0 Eosinophils % 0.2 Glucose Level 119 Hematocrit 39.8 L Hemoglobin 12.3 L Large Platelets 1+ Lymphocytes # 1.3 Lymphocytes % 13.0 L Mean Corpuscular Hemoglobin 23.7 L Mean Corpuscular Hemoglobin Concent 31.0 L Mean Corpuscular Volume 76.7 L Mean Platelet Volume 12.2 H Monocytes # 0.8 Monocytes % 8.0 Neutrophils # 8.0 H Neutrophils % 78.6 H Nucleated Red Blood Cells # 0.2 H Nucleated Red Blood Cells % 0.0 Platelet Count 254 Potassium Level 4.3 Red Blood Count 5.19 Red Cell Distribution Width 22.4 H Sodium Level 141 White Blood Count 10.2 Medications Medications Current Medications Ondansetron HCl (Zofran Inj) 4 mg Q6H PRN IV NAUSEA AND/OR VOMITING; Start at 12:00 Nitroglycerin (Nitroglycerin (Sl Tab) 0.4 Mg) 1 tab Q5M PRN SL CHEST PAIN; Start 06/26/16 at 12:00 Morphine Sulfate (morphine) 2 mg Q4H PRN IV PAIN LEVEL 7-10 Last administered on 07/15/16 03:44; Admin Dose 2 MG; Start 06/26/16 at 12:00 Lorazepam (Ativan) 1 mg Q2H PRN IV ANXIETY Last administered on 07/15/16 05:13 ; Admin Dose 1 MG; Start 06/26/16 at 12:00 IV Flush (NS 10 ml) 10 ml PRN PRN IV IV PROTOCOL; Start 06/27/16 at 16:30 Nystatin 5 ml 5 ml TID PO Last administered on 07/17/16 14:08; Admin Dose 5 ML ; Start 06/30/16 at 21:00 Ceftriaxone Sodium (Rocephin) 50 ml @ 100 mls/hr Q24H IVPB Last administered on 07/16/16 14:04; Admin Dose 100 MLS/HR; Start 07/12/16 at 14:30 Apixaban (Eliquis) 10 mg BID PO Last administered on 07/17/16 08:35; Admin Dose 10 MG; Start 07/14/16 at 09:30; Stop 07/20/16 at 21:01 Apixaban 5 mg 5 mg BID PO ; Start 07/21/16 at 09:00 Dextrose (D5W) 1,000 ml @ 40 mls/hr Q24H IV Last administered on 07/16/16 09: 12; Admin Dose 100 MLS/HR; Start 07/14/16 at 10:00 Metoprolol Tartrate (Lopressor) 12.5 mg BID PO Last administered on 07/17/16 08:37; Admin Dose 12.5 MG; Start 07/14/16 at 21:00 Lansoprazole 30 mg 30 mg BID@06,18 GTB Last administered on 07/17/16 05:48; Admin Dose 30 MG; Start 07/15/16 at 18:00 Fluconazole/ Sodium Chloride (Diflucan 100 Mg/ NS (Pmx)) 50 ml @ 50 mls/hr Q24H IVPB Last administered on 07/17/16 10:51; Admin Dose 50 MLS/HR; Start at 11:00 Potassium Chloride (Potassium Chloride Pwd/Soln) 30 meq DAILY NGT Last administered on 07/17/16 08:31; Admin Dose 30 MEQ; Start 07/16/16 at 12:30 Collagenase (Santyl) 1 applic DAILY TOP Last administered on 07/17/16 09:54; Admin Dose 1 APPLIC; Start 07/16/16 at 16:30 Acetaminophen 650 mg 650 mg Q4H PRN GTB PAIN AND OR ELEVATED TEMP Last administered on 07/17/16 08:36; Admin Dose 650 MG; Start 07/17/16 at 00:00 Vancomycin HCl/ Sodium Chloride (Vancocin/NS) 500 ml @ 125 mls/hr Q24H IVPB Last administered on 07/17/16t 01:04; Admin Dose 125 MLS/HR; Start 07/17/16 at 01:00 DARIUSZ GARZA Jul 17, 2016 14:28
[2016-07-17] MEDS ORDERED: METOCLOPRAMIDE 10 MG INJ IV PRN (14:30)
--- NOTE | 2016-07-17 14:37 | PN ---
DATE: 07/17/2016 SUBJECTIVE: Patient spiked a fever yesterday, started on vancomycin. Currently afebrile, minimally communicative and in no distress. Per report, also had loose stools: WBC 10.2, platelets 254, ne utrophils 78.6, no bands. BUN 47, creatinine 0.93. MICROBIOLOGY: Urine culture and endotracheal aspirate on 07/2013 grew Saniya albicans. INDWELLINGS: Trach, PEG, Merino, left upper extremity PICC line. ANTIMICROBIALS: 1. Vancomycin. 2. Fluconazole. 3. Ceftriaxone. PHYSICAL EXAMINATION: GENERAL: Chronically ill-appearing, middle-aged man in no distress. HEENT: Head atraumatic, normocephalic. Sclerae anicteric. Buccal mucosa dry. NECK: Supple. Tracheostomy present. CHEST: Rise symmetrical. Breath sounds diminished to bases. HEART: S1, S2. ABDOMEN: Soft, bowel tones present. EXTREMITIES: With trace edema. ASSESSMENT: 1. Recurrent fevers. Etiology unclear, covered with broad spectrum antibiotics. 2. Diarrhea, rule out Clostridium difficile colitis. 3. Acute respiratory failure, status post tracheostomy. 4. Pulmonary edema, congestive heart failure exacerbation. 5. Severe cardiomyopathy. 6. Aortic and mitral valve vegetations with a history of alpha hemolytic strep bacteremia in 6. 7. Anemia. 8. History of IV drug use. PLAN: The patient remains clinically unchanged, hemodynamically stable. He is DNR status. He is b eing seen by multiple consultants. We will keep him on current antimicrobials. Follow stool cultur es. Repeat blood cultures p.r.n. if he spikes fever. Dictated By: RAYMOND HER EMERGENCY MEDICINE PHYSICIAN for JULIO CESAR DURON/NTS Conf#: [id number] DID#: [id number]
[2016-07-17] MEDS: CEFTRIAXONE 2 GM/50 ML (PMX) 50 ML IVPB SCH (15:03)
--- NOTE | 2016-07-17 15:22 | PN ---
DATE: 07/17/2016 SUBJECTIVE: The patient remains stable, no new events. PHYSICAL EXAMINATION: VITAL SIGNS: Temperature 98, pulse is 100, blood pressure 123/69, O2 saturation 96% on 30% FIO2. NECK: Trach site clean and intact. CARDIAC: S1, S2, no added sounds or murmurs. CHEST: Diminished air entry bilaterally. ABDOMEN: Soft, nontender. No guarding or rebound. EXTREMITIES: No cyanosis, clubbing, edema. NEUROLOGIC: Generalized weakness. LABORATORY DATA: White count 10.2, hemoglobin 12.3, platelets of 253. Chemistry within normal limi ts. IMPRESSION AND PLAN: 1. Bacterial endocarditis. 2. History of drug abuse. 3. Respiratory failure, now with tracheostomy. 4. Dysphagia with G-tube. 5. Encephalopathy, likely toxic metabolic. PLAN: 1. Continue vent support. 2. Tube feeding. 3. Wound care. 4. DVT and GI prophylaxis. 5. Long-term antibiotics. 6. Transfer to custodial facility and/or [facility]. Dictated By: ASAD SPENCER/BRANDO Conf#: [id number] DID#: [id number]
[2016-07-17] MEDS: VANCOMYCIN 1 GM in NS 250 ML IVPB SCH (15:55)
--- NOTE | 2016-07-17 20:08 | CONS ---
Date/Time of Note Date/Time of Note DATE: 07/17/16 TIME: 20:00 Assessment/Plan Assessment/Plan Chief Complaint/Hosp Course 1. acute renal failure superimposed on CKD . his renal function has improved , some component of cardiorenal syndrome with a high BUN/Creatinine ratio . He has been in positive fluid balance the last 4 days . Bumex was stopped because of high serum sodium . He is getting IV D5W to correct serum sodium . I will D/C D5W and restart Bumex . . 2. 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 CT surgery says that he is not a surgical candidate at this time . 3. CHF , with peripheral edema , edema is decreasing 4. hepatitis C with elevated liver enzymes 5. respiratory failure , ventilator dependent . 6. normal potassium , he is now on potassium . 7. hypernatremia ,sodium is corrected , he is on water flushes . Problems: Consultation Date/Type/Reason Admit Date/Time Jun 26, 2016 at 11:39 Type of Consultation: Gastroenterology Referring Provider: ASAD DAS MD, [facility] 24 HR Interval Summary Free Text/Dictation He is now on telemetry . He is not responsive . He has a tracheostomy and is on ventilator . Subjective hx not possible: pt non-verbal Exam/Review of Systems Vital Signs Vitals Vital Signs Date Time Temp Pulse Resp B/P Pulse Ox O2 Delivery O2 Flow Rate FiO2 07/17/16 17:22 111 21 10 30 07/17/16 15:34 98.6 102/61 07/16/16 05:00 Mechanical Ventilator Intake and Output 07/16/16 07/16/16 07/17/16 15:00 23:00 07:00 Intake Total 300 ml 580 ml 1620 ml Output Total 500 ml 620 ml Balance 300 ml 80 ml 1000 ml Exam Constitutional: non-verbal Respiratory: clear to auscultation, diminished breath sounds Cardiovascular: murmurs/extra sounds, regular rate and rhythm Gastrointestinal: soft Extremities: edema Results Result Diagram: 07/17/1626 07/17/1626 Results 24 hrs Laboratory Tests Test 07/17/16 00:01 07/17/16 06:26 Urine Bacteria FEW Urine Bilirubin 1+ H Urine Clarity SLIGHTLY CLOUDY Urine Color DK. YELLOW Urine Glucose NEGATIVE Urine Hemoglobin 3+ H Urine Ictotest POSITIVE Urine Ketones NEGATIVE Urine Leukocyte Esterase 1+ H Urine Microscopic RBC 10-25 Urine Microscopic WBC >50 Urine Nitrite NEGATIVE Urine Specific [place] >=1.030 H Urine Squamous Epithelial Cells FEW Urine Total Protein 2+ H Urine Urobilinogen 0.2 E.U./dL Urine Yeast MODERATE Urine pH 5.5 Anion Gap 14 Basophils # 0.0 Basophils % 0.2 Blood Morphology Comment Blood Urea Nitrogen 47 H Calcium Level 7.8 L Carbon Dioxide Level 24 Chloride Level 107 Creatinine 0.93 Differential Comment AUTO w/SCAN Eosinophils # 0.0 Eosinophils % 0.2 Glucose Level 119 Hematocrit 39.8 L Hemoglobin 12.3 L Large Platelets 1+ Lymphocytes # 1.3 Lymphocytes % 13.0 L Mean Corpuscular Hemoglobin 23.7 L Mean Corpuscular Hemoglobin Concent 31.0 L Mean Corpuscular Volume 76.7 L Mean Platelet Volume 12.2 H Monocytes # 0.8 Monocytes % 8.0 Neutrophils # 8.0 H Neutrophils % 78.6 H Nucleated Red Blood Cells # 0.2 H Nucleated Red Blood Cells % 0.0 Platelet Count 254 Potassium Level 4.3 Red Blood Count 5.19 Red Cell Distribution Width 22.4 H Sodium Level 141 White Blood Count 10.2 Medications Medications Current Medications Ondansetron HCl (Zofran Inj) 4 mg Q6H PRN IV NAUSEA AND/OR VOMITING; Start at 12:00 Nitroglycerin (Nitroglycerin (Sl Tab) 0.4 Mg) 1 tab Q5M PRN SL CHEST PAIN; Start 06/26/16 at 12:00 Morphine Sulfate (morphine) 2 mg Q4H PRN IV PAIN LEVEL 7-10 Last administered on 07/15/16 03:44; Admin Dose 2 MG; Start 06/26/16 at 12:00 Lorazepam (Ativan) 1 mg Q2H PRN IV ANXIETY Last administered on 07/15/16 05:13 ; Admin Dose 1 MG; Start 06/26/16 at 12:00 IV Flush (NS 10 ml) 10 ml PRN PRN IV IV PROTOCOL; Start 06/27/16 at 16:30 Nystatin 5 ml 5 ml TID PO Last administered on 07/17/16 14:08; Admin Dose 5 ML ; Start 06/30/16 at 21:00 Ceftriaxone Sodium (Rocephin) 50 ml @ 100 mls/hr Q24H IVPB Last administered on 07/17/16 15:03; Admin Dose 100 MLS/HR; Start 07/12/16 at 14:30 Apixaban (Eliquis) 10 mg BID PO Last administered on 07/17/16 08:35; Admin Dose 10 MG; Start 07/14/16 at 09:30; Stop 07/20/16 at 21:01 Apixaban 5 mg 5 mg BID PO ; Start 07/21/16 at 09:00 Dextrose (D5W) 1,000 ml @ 40 mls/hr Q24H IV Last administered on 07/17/16 16: 01; Admin Dose 40 MLS/HR; Start 07/14/16 at 10:00 Metoprolol Tartrate (Lopressor) 12.5 mg BID PO Last administered on 07/17/16 08:37; Admin Dose 12.5 MG; Start 07/14/16 at 21:00 Lansoprazole 30 mg 30 mg BID@06,18 GTB Last administered on 07/17/16 17:54; Admin Dose 30 MG; Start 07/15/16 at 18:00 Fluconazole/ Sodium Chloride (Diflucan 100 Mg/ NS (Pmx)) 50 ml @ 50 mls/hr Q24H IVPB Last administered on 07/17/16 10:51; Admin Dose 50 MLS/HR; Start at 11:00 Potassium Chloride (Potassium Chloride Pwd/Soln) 30 meq DAILY NGT Last administered on 07/17/16 08:31; Admin Dose 30 MEQ; Start 07/16/16 at 12:30 Collagenase (Santyl) 1 applic DAILY TOP Last administered on 07/17/16 09:54; Admin Dose 1 APPLIC; Start 07/16/16 at 16:30 Acetaminophen (Tylenol Liquid) 650 mg Q4H PRN GTB PAIN AND OR ELEVATED TEMP Last administered on 07/17/16 08:36; Admin Dose 650 MG; Start 07/17/16 at 00:00 Metoclopramide HCl 10 mg 10 mg Q6H PRN IV VOMITTING; Start 07/17/16 at 14:30 Vancomycin HCl (Vancocin) 250 ml @ 125 mls/hr Q12H IVPB Last administered on 15:55; Admin Dose 125 MLS/HR; Start 07/17/16 at 15:00 Miscellaneous Information (*Rx Drug Level Order Reminder*) 1 ONCE ONCE XX ; Start 07/18/16 at 14:00; Stop 07/18/16 at 14:01 CRESENCIO CASTILLO MD Jul 17, 2016 20:08
[2016-07-17] MEDS: BUMETANIDE 1 MG INJ IV SCH (21:05)
[2016-07-18] VITALS (24 sets, daily range): BP systolic 105–111; BP diastolic 55–58; PULSE 105–160; RESP 18–28
[2016-07-18] MEDS: VANCOMYCIN 1 GM in NS 250 ML IVPB SCH (04:00)
[2016-07-18] MEDS: LANSOPRAZOLE 30 MG CAP GTB SCH ×2 (06:06→17:14)
[2016-07-18] MEDS: BUMETANIDE 1 MG INJ IV SCH ×2 (06:07→17:14)
[2016-07-18 06:32] LABS: BASOPHILS % 0.1 % (0.0-2.0); EOSINOPHILS % 0.4 % (0.0-7.0); HEMATOCRIT 39.2 % (42.0-52.0); HEMOGLOBIN 12.1 g/dl (14.0-18.0); LYMPHOCYTES # 1.3 10^3/ul (0.8-2.9); LYMPHOCYTES % 12.3 % (15.0-51.0); MEAN CORPUSCULAR HEMOGLOBIN 23.5 pg (29.0-33.0); MEAN CORPUSCULAR HGB CONC 30.8 g/dl (32.0-37.0); MEAN CORPUSCULAR VOLUME 76.3 fl (82.0-101.0); MEAN PLATELET VOLUME 11.6 fl (7.4-10.4); MONOCYTES % 9.6 % (0.0-11.0); NEUTROPHIL # 8.2 10^3/ul (1.6-7.5); NEUTROPHILS % 77.6 % (39.0-77.0); NUCLEATED RED BLOOD CELLS% 2.4 /100WBC (0.0-0.0); PLATELET COUNT 242 10^3/UL (140-440); RED BLOOD COUNT 5.14 10^6/ul (4.70-6.10); RED CELL DISTRIBUTION WIDTH 23.3 % (11.5-14.5); UNCORRECTED WBC 10.6 10^3/ul (4.8-10.8); WHITE BLOOD COUNT 10.6 10^3/ul (4.8-10.8)
[2016-07-18 06:37] LABS: ALBUMIN 2.4 g/dl (3.3-4.9)
[2016-07-18 06:38] LABS: POTASSIUM 4.4 mmol/L (3.5-5.1)
[2016-07-18 06:40] LABS: BILIRUBIN,INDIRECT 0.3 mg/dl (0-1.1); BILIRUBIN,TOTAL 0.3 mg/dl (0.2-1.3); CONDITION 1; CREATININE 1.05 mg/dl (0.61-1.24); LH ANALYZER COMMENTS 1; NUCLEATED RED BLOOD CELLS # 0.3 10^3/ul (0.0-0.0); SUSPECT 1
[2016-07-18 06:41] LABS: ALBUMIN/GLOBULIN RATIO 0.8; CALCIUM 7.7 mg/dl (8.4-10.2); TOTAL PROTEIN 5.4 g/dl (6.1-8.1)
[2016-07-18] MEDS: NYSTATIN SUSP 5 ML CUP PO SCH ×3 (09:16→20:46)
[2016-07-18] MEDS: ACETAMINOPHEN 650MG/20.3ML CUP GTB PRN (09:16)
[2016-07-18] MEDS: APIXABAN 5 MG TABLET PO SCH ×2 (09:17→20:47)
[2016-07-18] MEDS: POTASSIUM CHLORIDE 20 MEQ POWDER FOR ORAL SOLN NGT SCH (09:17)
[2016-07-18] MEDS: METOPROLOL 25 MG TAB PO SCH ×2 (09:18→20:49)
[2016-07-18] MEDS: COLLAGENASE 30 GM TUBE TOP SCH (09:19)
--- NOTE | 2016-07-18 10:46 | CONS ---
Date/Time of Note Date/Time of Note DATE: 07/18/16 TIME: 10:39 Assessment/Plan Assessment/Plan Chief Complaint/Hosp Course IMPRESSION: 1. Congestive heart failure exacerbation, systolic, acute on chronic with last known EF approximately 40% by echo May 2016.-improved volume status 2. Aortic regurgitation, moderate to severe with possible ongoing vegetation by most recent echo May 2016. 3. Mitral regurgitation, moderate to severe. 4. History of recent endocarditis status post 6-week course of antibiotics. 5. Cardiomyopathy with decreased left ventricular ejection fraction last approximately 40% by echo 06/14/2016. 6. Coagulopathy-resolved 7. Renal failure-slowly improving again 9. Increased LFTs-improving 10. Increased Na 12. Mild anemia. 13.Resp failure s/p trach 14. s/p Code blue 15.DNR 16.dysphagia s/p G tube Recc: -Tele -Low dose BB/hydralazine as tolerated only following BP/HR closely -Continue apixaban -Per CT surgery not a candidate for valve replacement at this time due to high risk -F/U blood cultures -Continue abx's -Follow volume status closely, currently back on Bumex -Will give digoxin IVP to improve HR Problems: Consultation Date/Type/Reason Admit Date/Time Jun 26, 2016 at 11:39 Initial Consult Date 06/27/2016 Type of Consultation: Cardiology Reason for Consultation CHF/AR/MR Referring Provider: ASAD DAS MD, [facility] Exam/Review of Systems Vital Signs Vitals Vital Signs Date Time Temp Pulse Resp B/P Pulse Ox O2 Delivery O2 Flow Rate FiO2 07/18/16 09:12 112 18 100 30 07/18/16 07:00 100.6 108/58 07/18/16 00:00 Mechanical Ventilator Intake and Output 07/17/16 07/17/16 07/18/16 15:00 23:00 07:00 Intake Total 50 ml 1610 ml 980 ml Output Total 800 ml 950 ml Balance 50 ml 810 ml 30 ml Exam Review of Systems: CONSTITUTIONAL: No fevers, chills. PULMONARY: trached CARDIOVASCULAR: No obvious chest pain/palpitations GASTROINTESTINAL: No nausea/vomiting. GENITOURINARY: No hematuria/dysuria. MUSCULOSKELETAL: No obvious myagias/arthalgias. PSYCHIATRIC: No documented depression. NEUROLOGIC: encephalopathy Constitutional: other (encephalopathic) Head: normocephalic ENMT: mucosa pink and moist Neck: jvd, supple Respiratory: diminished breath sounds (at bases/B) Cardiovascular: other (tachycardic, regular rhythm) Gastrointestinal: non-tender, soft Musculoskeletal: muscle tone Extremities: edema (none) Neurological: other (no focal deficits) Results Result Diagram: 07/18/16 0553 07/18/16 0553 Results 24 hrs Laboratory Tests Test 07/18/16 05:53 Alanine Aminotransferase (ALT/SGPT) 244 H Albumin 2.4 L Albumin/Globulin Ratio 0.80 Alkaline Phosphatase 77 Anion Gap 16 Aspartate Amino Transf (AST/SGOT) 140 H Basophils # Pending Basophils % Pending Blood Morphology Comment Blood Urea Nitrogen 52 H Calcium Level 7.7 L Carbon Dioxide Level 23 Chloride Level 107 Creatinine 1.05 Direct Bilirubin 0.00 Eosinophils # Pending Eosinophils % Pending Globulin 3.00 Glucose Level 112 Hematocrit 39.2 L Hemoglobin 12.1 L Indirect Bilirubin 0.3 Lymphocytes # Pending Lymphocytes % Pending Mean Corpuscular Hemoglobin 23.5 L Mean Corpuscular Hemoglobin Concent 30.8 L Mean Corpuscular Volume 76.3 L Mean Platelet Volume 11.6 H Monocytes # Pending Monocytes % Pending Neutrophils # Pending Neutrophils % Pending Nucleated Red Blood Cells # Pending Nucleated Red Blood Cells % Pending Platelet Count 242 Potassium Level 4.4 Red Blood Count 5.14 Red Cell Distribution Width 23.3 H Sodium Level 142 Total Bilirubin 0.3 Total Protein 5.4 L White Blood Count 10.6 Medications Medications Current Medications Ondansetron HCl (Zofran Inj) 4 mg Q6H PRN IV NAUSEA AND/OR VOMITING; Start at 12:00 Nitroglycerin (Nitroglycerin (Sl Tab) 0.4 Mg) 1 tab Q5M PRN SL CHEST PAIN; Start 06/26/16 at 12:00 Morphine Sulfate (morphine) 2 mg Q4H PRN IV PAIN LEVEL 7-10 Last administered on 07/15/16 03:44; Admin Dose 2 MG; Start 06/26/16 at 12:00 Lorazepam (Ativan) 1 mg Q2H PRN IV ANXIETY Last administered on 07/15/16 05:13 ; Admin Dose 1 MG; Start 06/26/16 at 12:00 IV Flush (NS 10 ml) 10 ml PRN PRN IV IV PROTOCOL; Start 06/27/16 at 16:30 Nystatin 5 ml 5 ml TID PO Last administered on 07/18/16 09:16; Admin Dose 5 ML ; Start 06/30/16 at 21:00 Ceftriaxone Sodium (Rocephin) 50 ml @ 100 mls/hr Q24H IVPB Last administered on 07/17/16 15:03; Admin Dose 100 MLS/HR; Start 07/12/16 at 14:30 Apixaban (Eliquis) 10 mg BID PO Last administered on 07/18/16 09:17; Admin Dose 10 MG; Start 07/14/16 at 09:30; Stop 07/20/16 at 21:01 Apixaban (Eliquis) 5 mg BID PO ; Start 07/21/16 at 09:00 Metoprolol Tartrate (Lopressor) 12.5 mg BID PO Last administered on 07/18/16 09:18; Admin Dose 12.5 MG; Start 07/14/16 at 21:00 Lansoprazole 30 mg 30 mg BID@06,18 GTB Last administered on 07/18/16 06:06; Admin Dose 30 MG; Start 07/15/16 at 18:00 Fluconazole/ Sodium Chloride (Diflucan 100 Mg/ NS (Pmx)) 50 ml @ 50 mls/hr Q24H IVPB Last administered on 07/17/16 10:51; Admin Dose 50 MLS/HR; Start at 11:00 Potassium Chloride (Potassium Chloride Pwd/Soln) 30 meq DAILY NGT Last administered on 07/18/16 09:17; Admin Dose 30 MEQ; Start 07/16/16 at 12:30 Collagenase (Santyl) 1 applic DAILY TOP Last administered on 07/18/16 09:19; Admin Dose 1 APPLIC; Start 07/16/16 at 16:30 Acetaminophen (Tylenol Liquid) 650 mg Q4H PRN GTB PAIN AND OR ELEVATED TEMP Last administered on 07/18/16 09:16; Admin Dose 650 MG; Start 07/17/16 at 00:00 Metoclopramide HCl 10 mg 10 mg Q6H PRN IV VOMITTING; Start 07/17/16 at 14:30 Vancomycin HCl (Vancocin) 250 ml @ 125 mls/hr Q12H IVPB Last administered on t 04:00; Admin Dose 125 MLS/HR; Start 07/17/16 at 15:00 Miscellaneous Information (*Rx Drug Level Order Reminder*) 1 ONCE ONCE XX ; Start 07/18/16 at 14:00; Stop 07/18/16 at 14:01 SEVERO STUBBS Jul 18, 2016 10:46
--- NOTE | 2016-07-18 10:59 | PN ---
Date/Time of Note Date/Time of Note DATE: 07/18/16 TIME: 10:52 Assessment/Plan VTE Prophylaxis VTE Prophylaxis Intervention: other (Eliquis) Lines/Catheters IV Catheter Type (from Nrs): PICC Line Central line still needed: Yes Urinary Cath still in place: Yes Reason Cath still needed: urinary retention Assessment/Plan Chief Complaint/Hosp Course Assessment/Plan: 36 yo unfortunate male with a past medical history of Bacterial Endocarditis finished 6 week course of IV antibiotics, Drug abuse, Nicotine abuse, Right popliteal thrombosis, PE (on Eliquis prior to admission), Microcytic anemia, CHF - diastolic, who came for worsening shortness of breath. 1. hypoxemic respiratory failure - - multifactorial - heart failure acute on chronic - still Vent dependent - trach - f/u pulm rec's - for possible [facility] placement - CM actively working on this with pt's IPA - f/u 2. Mild SIRS with intermittent low grade fever / trach aspirate showed some heath and + pneumonia (HCAP) + endocarditis. Ucx also + for heath > 100,000 CFU -- continue IV vanco, Rocephin, PO diflucan - IV diflucan as well - continue abx per ID 3. CHF - diastolic dysfunction acute on chronic - EF recent shows 40%, D shaped left ventricle -Ongoing diuresis with Bumex per Nephrology - back on this med now - f/u CV and renal rec's 4. Encephalopathy: still fairly early to call permanent brain injury, continue close monitoring and status optimization for now 5. BESSIE - acute on chronic - 2/2 #2 - patient seems to be at baseline now - nephrology managing / appreciate input 6. Transaminitis - 2/2 to sepsis, monitor trend - much improved 7. PE - now on eliquis as no further intervention planned at the present time 8. Right popliteal thrombus - eliquis / no thrombus on recent LE USS 9. Microcytic anemia - monitor H/H, transfuse if hgb < 8 g/dL. Pt has been given IV iron as well. 10. GI ppx - Lansoprazole 11. DVT ppx -eliquis 12. DNR / DNI 13. S/p PEG placement for dysphagia / new trach 14. Hypernatremia - appreciate nephrology consult - resolved now - monitor, f/u renal rec's dispo -Continue supportive care and vent mgt and tube feeds. Case mgt to plan placement / probable [facility] versus subacute when cleared by pulm -Monitor fever curve and WBC count -Possible valve replacement surgery in future if more medically stable then Problems: Subjective 24 Hr Interval Summary Free Text/Dictation Placed back on bumex yesterday. + fevers as well yesterday and today. Exam/Review of Systems Vital Signs Vitals Vital Signs Date Time Temp Pulse Resp B/P Pulse Ox O2 Delivery O2 Flow Rate FiO2 07/18/16 09:12 112 18 100 30 07/18/16 07:00 100.6 108/58 07/18/16 00:00 Mechanical Ventilator Intake and Output 07/17/16 07/17/16 07/18/16 15:00 23:00 07:00 Intake Total 50 ml 1610 ml 980 ml Output Total 800 ml 950 ml Balance 50 ml 810 ml 30 ml Exam Constitutional: No alert, No non-verbal, No oriented Eyes: PERRL Neck: other (trach to vent) Respiratory: diminished breath sounds Cardiovascular: murmurs/extra sounds Gastrointestinal: bowel sounds, other (PEG), soft Extremities: pitting pedal edema Neurological: No nl mental status, No nl speech, No nl strength Results Result Diagram: 07/18/16 0553 07/18/16 0553 Results 24 hrs Laboratory Tests Test 07/18/16 05:53 Alanine Aminotransferase (ALT/SGPT) 244 H Albumin 2.4 L Albumin/Globulin Ratio 0.80 Alkaline Phosphatase 77 Anion Gap 16 Aspartate Amino Transf (AST/SGOT) 140 H Basophils # 0.0 Basophils % 0.1 Blood Morphology Comment Blood Urea Nitrogen 52 H Calcium Level 7.7 L Carbon Dioxide Level 23 Chloride Level 107 Creatinine 1.05 Direct Bilirubin 0.00 Eosinophils # 0.0 Eosinophils % 0.4 Globulin 3.00 Glucose Level 112 Hematocrit 39.2 L Hemoglobin 12.1 L Indirect Bilirubin 0.3 Lymphocytes # 1.3 Lymphocytes % 12.3 L Mean Corpuscular Hemoglobin 23.5 L Mean Corpuscular Hemoglobin Concent 30.8 L Mean Corpuscular Volume 76.3 L Mean Platelet Volume 11.6 H Monocytes # 1.0 H Monocytes % 9.6 Neutrophils # 8.2 H Neutrophils % 77.6 H Nucleated Red Blood Cells # 0.3 H Nucleated Red Blood Cells % 2.4 H Platelet Count 242 Potassium Level 4.4 Red Blood Count 5.14 Red Cell Distribution Width 23.3 H Sodium Level 142 Total Bilirubin 0.3 Total Protein 5.4 L White Blood Count 10.6 Medications Medications Current Medications Ondansetron HCl (Zofran Inj) 4 mg Q6H PRN IV NAUSEA AND/OR VOMITING; Start at 12:00 Nitroglycerin (Nitroglycerin (Sl Tab) 0.4 Mg) 1 tab Q5M PRN SL CHEST PAIN; Start 06/26/16 at 12:00 Morphine Sulfate (morphine) 2 mg Q4H PRN IV PAIN LEVEL 7-10 Last administered on 07/15/16 03:44; Admin Dose 2 MG; Start 06/26/16 at 12:00 Lorazepam (Ativan) 1 mg Q2H PRN IV ANXIETY Last administered on 07/15/16 05:13 ; Admin Dose 1 MG; Start 06/26/16 at 12:00 IV Flush (NS 10 ml) 10 ml PRN PRN IV IV PROTOCOL; Start 06/27/16 at 16:30 Nystatin 5 ml 5 ml TID PO Last administered on 07/18/16 09:16; Admin Dose 5 ML ; Start 06/30/16 at 21:00 Ceftriaxone Sodium (Rocephin) 50 ml @ 100 mls/hr Q24H IVPB Last administered on 07/17/16 15:03; Admin Dose 100 MLS/HR; Start 07/12/16 at 14:30 Apixaban (Eliquis) 10 mg BID PO Last administered on 07/18/16 09:17; Admin Dose 10 MG; Start 07/14/16 at 09:30; Stop 07/20/16 at 21:01 Apixaban (Eliquis) 5 mg BID PO ; Start 07/21/16 at 09:00 Lansoprazole 30 mg 30 mg BID@06,18 GTB Last administered on 07/18/16 06:06; Admin Dose 30 MG; Start 07/15/16 at 18:00 Fluconazole/ Sodium Chloride (Diflucan 100 Mg/ NS (Pmx)) 50 ml @ 50 mls/hr Q24H IVPB Last administered on 07/17/16 10:51; Admin Dose 50 MLS/HR; Start at 11:00 Potassium Chloride (Potassium Chloride Pwd/Soln) 30 meq DAILY NGT Last administered on 07/18/16 09:17; Admin Dose 30 MEQ; Start 07/16/16 at 12:30 Collagenase (Santyl) 1 applic DAILY TOP Last administered on 07/18/16 09:19; Admin Dose 1 APPLIC; Start 07/16/16 at 16:30 Acetaminophen (Tylenol Liquid) 650 mg Q4H PRN GTB PAIN AND OR ELEVATED TEMP Last administered on 07/18/16 09:16; Admin Dose 650 MG; Start 07/17/16 at 00:00 Metoclopramide HCl 10 mg 10 mg Q6H PRN IV VOMITTING; Start 07/17/16 at 14:30 Vancomycin HCl (Vancocin) 250 ml @ 125 mls/hr Q12H IVPB Last administered on 04:00; Admin Dose 125 MLS/HR; Start 07/17/16 at 15:00 Miscellaneous Information (*Rx Drug Level Order Reminder*) 1 ONCE ONCE XX ; Start 07/18/16 at 14:00; Stop 07/18/16 at 14:01 Metoprolol Tartrate (Lopressor) 25 mg BID PO ; Start 07/18/16 at 21:00; Status UNV Digoxin (Digoxin) 250 mcg NOW ONCE IV ; Start 07/18/16 at 11:00; Stop 07/18/16 at 11:01; Status UNV ROBERTO DAVISON Jul 18, 2016 10:58
[2016-07-18] MEDS ORDERED: DIGOXIN 500 MCG INJ IV ONE (11:00)
[2016-07-18 11:16] LABS: IRON 20 ug/dl (35-150)
[2016-07-18] MEDS: FLUCONAZOLE 100 MG/NS (PMX) 50 ML IVPB SCH (11:21)
[2016-07-18 11:25] LABS: TOTAL IRON BINDING CAPACITY 271 ug/dl (241-421)
--- NOTE | 2016-07-18 14:45 | CONS ---
Date/Time of Note Date/Time of Note DATE: 07/18/16 TIME: 14:44 Consult Date/Type/Reason Admit Date/Time Jun 26, 2016 at 11:39 Type of Consultation: Pulm Ordering Provider: ASAD DAS MD, [facility] Subjective Comfortable No New events. Objective Vital Signs Date Time Temp Pulse Resp B/P Pulse Ox O2 Delivery O2 Flow Rate FiO2 07/18/16 13:34 28 30 07/18/16 12:26 110 07/18/16 11:53 100 07/18/16 11:00 99.0 111/56 07/18/16 00:00 Mechanical Ventilator Intake and Output 07/17/16 07/17/16 07/18/16 14:59 22:59 06:59 Intake Total 50 ml 1610 ml 980 ml Output Total 800 ml 950 ml Balance 50 ml 810 ml 30 ml PHYSICAL EXAMINATION: VITAL SIGNS: NECK: Trach site clean and intact. CARDIAC: S1, S2, no added sounds or murmurs. CHEST: Diminished air entry bilaterally. ABDOMEN: Soft, nontender. No guarding or rebound. EXTREMITIES: No cyanosis, clubbing, edema. NEUROLOGIC: Generalized weakness. Results/Medications Result Diagram: 07/18/16 0553 07/18/16 0553 Results 24 hrs Laboratory Tests Test 07/18/16 05:53 07/18/16 05:55 07/18/16 13:50 Alanine Aminotransferase (ALT/SGPT) 244 H Albumin 2.4 L Albumin/Globulin Ratio 0.80 Alkaline Phosphatase 77 Anion Gap 16 Aspartate Amino Transf (AST/SGOT) 140 H Basophils # 0.0 Basophils % 0.1 Blood Morphology Comment Blood Urea Nitrogen 52 H Calcium Level 7.7 L Carbon Dioxide Level 23 Chloride Level 107 Creatinine 1.05 Direct Bilirubin 0.00 Eosinophils # 0.0 Eosinophils % 0.4 Globulin 3.00 Glucose Level 112 Hematocrit 39.2 L Hemoglobin 12.1 L Indirect Bilirubin 0.3 Lymphocytes # 1.3 Lymphocytes % 12.3 L Mean Corpuscular Hemoglobin 23.5 L Mean Corpuscular Hemoglobin Concent 30.8 L Mean Corpuscular Volume 76.3 L Mean Platelet Volume 11.6 H Monocytes # 1.0 H Monocytes % 9.6 Neutrophils # 8.2 H Neutrophils % 77.6 H Nucleated Red Blood Cells # 0.3 H Nucleated Red Blood Cells % 2.4 H Platelet Count 242 Potassium Level 4.4 Red Blood Count 5.14 Red Cell Distribution Width 23.3 H Sodium Level 142 Total Bilirubin 0.3 Total Protein 5.4 L White Blood Count 10.6 Iron Level 20 L Percent Iron Saturation 7 L Total Iron Binding Capacity 271 Vancomycin Level Trough 20.3 *H Medications Current Medications Ondansetron HCl (Zofran Inj) 4 mg Q6H PRN IV NAUSEA AND/OR VOMITING; Start at 12:00 Nitroglycerin (Nitroglycerin (Sl Tab) 0.4 Mg) 1 tab Q5M PRN SL CHEST PAIN; Start 06/26/16 at 12:00 Morphine Sulfate (morphine) 2 mg Q4H PRN IV PAIN LEVEL 7-10 Last administered on 07/15/16 03:44; Admin Dose 2 MG; Start 06/26/16 at 12:00 Lorazepam (Ativan) 1 mg Q2H PRN IV ANXIETY Last administered on 07/15/16 05:13 ; Admin Dose 1 MG; Start 06/26/16 at 12:00 IV Flush (NS 10 ml) 10 ml PRN PRN IV IV PROTOCOL; Start 06/27/16 at 16:30 Nystatin 5 ml 5 ml TID PO Last administered on 07/18/16 13:09; Admin Dose 5 ML ; Start 06/30/16 at 21:00 Ceftriaxone Sodium (Rocephin) 50 ml @ 100 mls/hr Q24H IVPB Last administered on 07/17/16 15:03; Admin Dose 100 MLS/HR; Start 07/12/16 at 14:30 Apixaban (Eliquis) 10 mg BID PO Last administered on 07/18/16 09:17; Admin Dose 10 MG; Start 07/14/16 at 09:30; Stop 07/20/16 at 21:01 Apixaban (Eliquis) 5 mg BID PO ; Start 07/21/16 at 09:00 Lansoprazole 30 mg 30 mg BID@06,18 GTB Last administered on 07/18/16 06:06; Admin Dose 30 MG; Start 07/15/16 at 18:00 Fluconazole/ Sodium Chloride (Diflucan 100 Mg/ NS (Pmx)) 50 ml @ 50 mls/hr Q24H IVPB Last administered on 07/18/16 11:21; Admin Dose 50 MLS/HR; Start at 11:00 Potassium Chloride (Potassium Chloride Pwd/Soln) 30 meq DAILY NGT Last administered on 07/18/16 09:17; Admin Dose 30 MEQ; Start 07/16/16 at 12:30 Collagenase (Santyl) 1 applic DAILY TOP Last administered on 07/18/16 09:19; Admin Dose 1 APPLIC; Start 07/16/16 at 16:30 Acetaminophen (Tylenol Liquid) 650 mg Q4H PRN GTB PAIN AND OR ELEVATED TEMP Last administered on 07/18/16 09:16; Admin Dose 650 MG; Start 07/17/16 at 00:00 Metoclopramide HCl 10 mg 10 mg Q6H PRN IV VOMITTING; Start 07/17/16 at 14:30 Vancomycin HCl (Vancocin) 250 ml @ 125 mls/hr Q12H IVPB Last administered on 04:00; Admin Dose 125 MLS/HR; Start 07/17/16 at 15:00 Metoprolol Tartrate 25 mg 25 mg BID PO ; Start 07/18/16 at 21:00 Ferric Sodium Gluconate Complex/ Sodium Chloride (Ferrlecit/NS) 110 ml @ 100 mls/hr Q24H IVPB ; Start 07/18/16 at 15:30; Stop 07/20/16 at 16:35 Assessment/Plan Chief Complaint/Hosp Course IMPRESSION AND PLAN: 1. Bacterial endocarditis. 2. History of drug abuse. 3. Respiratory failure, now with tracheostomy. 4. Dysphagia with G-tube. 5. Encephalopathy, likely toxic metabolic. PLAN: 1. Continue vent support. 2. Tube feeding. 3. Wound care. 4. DVT and GI prophylaxis. 5. Long-term antibiotics. 6. Transfer to retirement facility and/or [facility]. Problems: ASAD DAS MD, [facility] Jul 18, 2016 14:45
[2016-07-18] MEDS: CEFTRIAXONE 2 GM/50 ML (PMX) 50 ML IVPB SCH (15:12)
[2016-07-18] MEDS: SOD FERRIC GLUC COMPLX 125 MG in SOD CHLORIDE 0.9% 100 ML IVPB SCH (15:20)
--- NOTE | 2016-07-18 16:33 | CONS ---
Date/Time of Note Date/Time of Note DATE: 07/18/16 TIME: 16:14 Assessment/Plan Assessment/Plan Additional Assessment/Plan 1. Microcytic anemia: occult blood negative on 07-16-16. h/h slowly trending down but stable. 2. Transaminitis - 2/2 to sepsis and HCV (HCV RNA 9, 017,009). Currently transaminase stable 3. Encephalopathy 4. Shortness of breath - hypoxemic respiratory failure - multifactorial - heart failure acute on chronic - Vent dependent - s/p trach 5. Sepsis severe 2/2 to pneumonia - tachycardia/leukocytosis - HCAP - IV cefepime, levaquin, vanc - respiratory cultures, monitor trend - improving 6. CHF - diastolic dysfunction acute on chronic - EF recent shows 40%, D shaped left ventricle 7. Dysphagia, s/p PEG placement, tolerating tube feeds. 8. Diarrhea, rule out C. difficile Recommendations: 1. continue prevacid to BID via G-tube as h/h slowly trending down. 2. monitor H/H, transfuse if hgb < 8 g/dL. Pt has been given IV iron as well. 3. Recommend outpatient follow-up with dispatcher radio for HCV treatment. No indication for in-patient treatment. 4. continue tube feeds and hold for residual greater than 150mL. 5. other supportive care per primary and other consultants. 6. Patient seen in collaboration with . Consultation Date/Type/Reason Admit Date/Time Jun 26, 2016 at 11:39 Type of Consultation: Gastroenterology Referring Provider: ASAD DAS MD, [facility] 24 HR Interval Summary Free Text/Dictation Tube feed at goal rate Minimal residual noted Reports of diarrhea, will evaluate for C. difficile Exam/Review of Systems Vital Signs Vitals Vital Signs Date Time Temp Pulse Resp B/P Pulse Ox O2 Delivery O2 Flow Rate FiO2 07/18/16 15:06 20 30 07/18/16 15:00 99.1 108 105/58 99 07/18/16 00:00 Mechanical Ventilator Intake and Output 07/17/16 07/17/16 07/18/16 15:00 23:00 07:00 Intake Total 50 ml 1610 ml 980 ml Output Total 800 ml 950 ml Balance 50 ml 810 ml 30 ml Exam Psych: confusion Head: atraumatic, normocephalic Eyes: EOMI, nl conjunctiva, nl lids, nl sclera ENMT: mucosa pink and moist, nl external ears & nose, nl lips & teeth, nl nasal mucosa & septum Neck: non-tender, supple Respiratory: clear to auscultation, normal air movement Cardiovascular: nl pulses, regular rate and rhythm Gastrointestinal: bowel sounds, non-tender, soft Results Result Diagram: 07/18/16 0553 07/18/16 0553 Results 24 hrs Laboratory Tests Test 07/18/16 05:53 07/18/16 05:55 07/18/16 13:50 Alanine Aminotransferase (ALT/SGPT) 244 H Albumin 2.4 L Albumin/Globulin Ratio 0.80 Alkaline Phosphatase 77 Anion Gap 16 Aspartate Amino Transf (AST/SGOT) 140 H Basophils # 0.0 Basophils % 0.1 Blood Morphology Comment Blood Urea Nitrogen 52 H Calcium Level 7.7 L Carbon Dioxide Level 23 Chloride Level 107 Creatinine 1.05 Direct Bilirubin 0.00 Eosinophils # 0.0 Eosinophils % 0.4 Globulin 3.00 Glucose Level 112 Hematocrit 39.2 L Hemoglobin 12.1 L Indirect Bilirubin 0.3 Lymphocytes # 1.3 Lymphocytes % 12.3 L Mean Corpuscular Hemoglobin 23.5 L Mean Corpuscular Hemoglobin Concent 30.8 L Mean Corpuscular Volume 76.3 L Mean Platelet Volume 11.6 H Monocytes # 1.0 H Monocytes % 9.6 Neutrophils # 8.2 H Neutrophils % 77.6 H Nucleated Red Blood Cells # 0.3 H Nucleated Red Blood Cells % 2.4 H Platelet Count 242 Potassium Level 4.4 Red Blood Count 5.14 Red Cell Distribution Width 23.3 H Sodium Level 142 Total Bilirubin 0.3 Total Protein 5.4 L White Blood Count 10.6 Iron Level 20 L Percent Iron Saturation 7 L Total Iron Binding Capacity 271 Vancomycin Level Trough 20.3 *H Medications Medications Current Medications Ondansetron HCl (Zofran Inj) 4 mg Q6H PRN IV NAUSEA AND/OR VOMITING; Start at 12:00 Nitroglycerin (Nitroglycerin (Sl Tab) 0.4 Mg) 1 tab Q5M PRN SL CHEST PAIN; Start 06/26/16 at 12:00 Morphine Sulfate (morphine) 2 mg Q4H PRN IV PAIN LEVEL 7-10 Last administered on 07/15/16t 03:44; Admin Dose 2 MG; Start 06/26/16 at 12:00 Lorazepam (Ativan) 1 mg Q2H PRN IV ANXIETY Last administered on 07/15/16 05:13 ; Admin Dose 1 MG; Start 06/26/16 at 12:00 IV Flush (NS 10 ml) 10 ml PRN PRN IV IV PROTOCOL; Start 06/27/16 at 16:30 Nystatin 5 ml 5 ml TID PO Last administered on 07/18/16 13:09; Admin Dose 5 ML ; Start 06/30/16 at 21:00 Ceftriaxone Sodium (Rocephin) 50 ml @ 100 mls/hr Q24H IVPB Last administered on 07/18/16 15:12; Admin Dose 100 MLS/HR; Start 07/12/16 at 14:30 Apixaban (Eliquis) 10 mg BID PO Last administered on 07/18/16 09:17; Admin Dose 10 MG; Start 07/14/16 at 09:30; Stop 07/20/16 at 21:01 Apixaban (Eliquis) 5 mg BID PO ; Start 07/21/16 at 09:00 Lansoprazole 30 mg 30 mg BID@06,18 GTB Last administered on 07/18/16 06:06; Admin Dose 30 MG; Start 07/15/16 at 18:00 Fluconazole/ Sodium Chloride (Diflucan 100 Mg/ NS (Pmx)) 50 ml @ 50 mls/hr Q24H IVPB Last administered on 07/18/16 11:21; Admin Dose 50 MLS/HR; Start at 11:00 Potassium Chloride (Potassium Chloride Pwd/Soln) 30 meq DAILY NGT Last administered on 07/18/16 09:17; Admin Dose 30 MEQ; Start 07/16/16 at 12:30 Collagenase (Santyl) 1 applic DAILY TOP Last administered on 07/18/16 09:19; Admin Dose 1 APPLIC; Start 07/16/16 at 16:30 Acetaminophen (Tylenol Liquid) 650 mg Q4H PRN GTB PAIN AND OR ELEVATED TEMP Last administered on 07/18/16 09:16; Admin Dose 650 MG; Start 07/17/16 at 00:00 Metoclopramide HCl (Reglan) 10 mg Q6H PRN IV VOMITTING; Start 07/17/16 at 14:30 Metoprolol Tartrate 25 mg 25 mg BID PO ; Start 07/18/16 at 21:00 Ferric Sodium Gluconate Complex 125 mg/Sodium Chloride 110 ml @ 100 mls/hr Q24H IVPB Last administered on 07/18/16t 15:20; Admin Dose 100 MLS/HR; Start at 15:30; Stop 07/20/16 at 16:35 Vancomycin HCl/ Sodium Chloride (Vancocin/NS) 150 ml @ 75 mls/hr Q12H IVPB ; Start 07/18/16 at 18:00 DARIUSZ GARZA Jul 18, 2016 16:24
[2016-07-18] MEDS: VANCOMYCIN 750 MG in SOD CHLORIDE 0.9% 150 ML IVPB SCH (18:02)
--- NOTE | 2016-07-18 18:07 | PN ---
DATE: 07/18/2016 SUBJECTIVE: No acute changes overnight. No fevers. The patient is awake, looks comfortable. Moth er at bedside. VITAL SIGNS: T-max 100.6, T-current 99. LABORATORY: WBC today 10.6, platelets 242. Neutrophils 77.6, no bands. BUN 52, creatinine 1.05. MICROBIOLOGY: Urine culture since 07/14 growing Saniya albicans. Blood culture on 07/17 grew gram -positive cocci in clusters. INDWELLINGS: Trach, PEG, Merino. PICC line placed on admission on 06/27. ANTIMICROBIALS: The patient is on: 1. IV vancomycin. 2. Fluconazole. 3. Rocephin. PHYSICAL EXAMINATION: GENERAL: Chronically ill-appearing middle-aged man who is lying comfortably in bed. HEENT: Head atraumatic, normocephalic. Sclerae anicteric. Buccal mucosa dry. NECK: Supple. Tracheostomy present. CHEST: Rise symmetrical. Breath sounds diminished to bases. HEART: S1, S2. ABDOMEN: Soft. Bowel tones present. EXTREMITIES: Without cyanosis. Right upper extremity dressing intact. ASSESSMENT: 1. Sepsis with gram-positive cocci bacteremia, rule out line sepsis versus secondary to SBE. 2. Acute on chronic respiratory failure, status post tracheostomy. 3. Urinary tract infection. 4. Severe cardiomyopathy. 5. Aortic and mitral valve vegetations with a history of alpha-hemolytic streptococcus bacteremia i n 03/2016. 6. History of intravenous drug use. PLAN: The patient remains stable, still with low-grade fevers. Blood culture came back positive on 07/17. We are going to repeat blood cultures from PICC line and recommend to change PICC line if p ossible. Continue present care. Above was discussed with mother at bedside. Dictated By: RAYMOND HER PC TECH for JULIO CESAR DURON/BRANDO Conf#: [id number] DID#: [id number]
--- NOTE | 2016-07-18 20:18 | CONS ---
Date/Time of Note Date/Time of Note DATE: 07/18/16 TIME: 20:08 Assessment/Plan Assessment/Plan Chief Complaint/Hosp Course 1. acute renal failure superimposed on CKD . his renal function has improved , some component of cardiorenal syndrome with a high BUN/Creatinine ratio . He has been in positive fluid balance the last 4 days . Bumex was stopped because of high serum sodium . Bumex was restarted yesterday . I will increase dose today to obtain a negative fluid balance . 2. 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 CT surgery says that he is not a surgical candidate at this time . 3. CHF , with peripheral edema , edema is decreasing 4. hepatitis C with elevated liver enzymes 5. respiratory failure , ventilator dependent . 6. normal potassium , he is now on potassium and Bumex . 7. hypernatremia ,sodium is corrected , he is on tube feeding and water flushes . Problems: Consultation Date/Type/Reason Admit Date/Time Jun 26, 2016 at 11:39 Type of Consultation: renal Referring Provider: ASAD DAS MD, [facility] 24 HR Interval Summary Free Text/Dictation patient is now on the telemetry floor . he is on ventilator , non verbal Subjective hx not possible: pt non-verbal Exam/Review of Systems Vital Signs Vitals Vital Signs Date Time Temp Pulse Resp B/P Pulse Ox O2 Delivery O2 Flow Rate FiO2 07/18/16 17:18 116 24 100 30 07/18/16 15:00 99.1 105/58 07/18/16 00:00 Mechanical Ventilator Intake and Output 07/17/16 07/17/16 07/18/16 15:00 23:00 07:00 Intake Total 50 ml 1610 ml 980 ml Output Total 800 ml 950 ml Balance 50 ml 810 ml 30 ml Exam Constitutional: non-verbal Respiratory: clear to auscultation, diminished breath sounds Cardiovascular: murmurs/extra sounds, regular rate and rhythm Gastrointestinal: soft Extremities: edema Results Result Diagram: 07/18/16 0553 07/18/16 0553 Results 24 hrs Laboratory Tests Test 07/18/16 05:53 07/18/16 05:55 07/18/16 13:50 Alanine Aminotransferase (ALT/SGPT) 244 H Albumin 2.4 L Albumin/Globulin Ratio 0.80 Alkaline Phosphatase 77 Anion Gap 16 Aspartate Amino Transf (AST/SGOT) 140 H Basophils # 0.0 Basophils % 0.1 Blood Morphology Comment Blood Urea Nitrogen 52 H Calcium Level 7.7 L Carbon Dioxide Level 23 Chloride Level 107 Creatinine 1.05 Direct Bilirubin 0.00 Eosinophils # 0.0 Eosinophils % 0.4 Globulin 3.00 Glucose Level 112 Hematocrit 39.2 L Hemoglobin 12.1 L Indirect Bilirubin 0.3 Lymphocytes # 1.3 Lymphocytes % 12.3 L Mean Corpuscular Hemoglobin 23.5 L Mean Corpuscular Hemoglobin Concent 30.8 L Mean Corpuscular Volume 76.3 L Mean Platelet Volume 11.6 H Monocytes # 1.0 H Monocytes % 9.6 Neutrophils # 8.2 H Neutrophils % 77.6 H Nucleated Red Blood Cells # 0.3 H Nucleated Red Blood Cells % 2.4 H Platelet Count 242 Potassium Level 4.4 Red Blood Count 5.14 Red Cell Distribution Width 23.3 H Sodium Level 142 Total Bilirubin 0.3 Total Protein 5.4 L White Blood Count 10.6 Iron Level 20 L Percent Iron Saturation 7 L Total Iron Binding Capacity 271 Vancomycin Level Trough 20.3 *H Medications Medications Current Medications Ondansetron HCl (Zofran Inj) 4 mg Q6H PRN IV NAUSEA AND/OR VOMITING; Start at 12:00 Nitroglycerin (Nitroglycerin (Sl Tab) 0.4 Mg) 1 tab Q5M PRN SL CHEST PAIN; Start 06/26/16 at 12:00 Morphine Sulfate (morphine) 2 mg Q4H PRN IV PAIN LEVEL 7-10 Last administered on 07/15/16 03:44; Admin Dose 2 MG; Start 06/26/16 at 12:00 Lorazepam (Ativan) 1 mg Q2H PRN IV ANXIETY Last administered on 07/15/16 05:13 ; Admin Dose 1 MG; Start 06/26/16 at 12:00 IV Flush (NS 10 ml) 10 ml PRN PRN IV IV PROTOCOL; Start 06/27/16 at 16:30 Nystatin 5 ml 5 ml TID PO Last administered on 07/18/16 13:09; Admin Dose 5 ML ; Start 06/30/16 at 21:00 Ceftriaxone Sodium (Rocephin) 50 ml @ 100 mls/hr Q24H IVPB Last administered on 07/18/16 15:12; Admin Dose 100 MLS/HR; Start 07/12/16 at 14:30 Apixaban (Eliquis) 10 mg BID PO Last administered on 07/18/16 09:17; Admin Dose 10 MG; Start 07/14/16 at 09:30; Stop 07/20/16 at 21:01 Apixaban (Eliquis) 5 mg BID PO ; Start 07/21/16 at 09:00 Lansoprazole 30 mg 30 mg BID@06,18 GTB Last administered on 07/18/16 17:14; Admin Dose 30 MG; Start 07/15/16 at 18:00 Fluconazole/ Sodium Chloride (Diflucan 100 Mg/ NS (Pmx)) 50 ml @ 50 mls/hr Q24H IVPB Last administered on 07/18/16 11:21; Admin Dose 50 MLS/HR; Start at 11:00 Potassium Chloride (Potassium Chloride Pwd/Soln) 30 meq DAILY NGT Last administered on 07/18/16 09:17; Admin Dose 30 MEQ; Start 07/16/16 at 12:30 Collagenase (Santyl) 1 applic DAILY TOP Last administered on 07/18/16 09:19; Admin Dose 1 APPLIC; Start 07/16/16 at 16:30 Acetaminophen (Tylenol Liquid) 650 mg Q4H PRN GTB PAIN AND OR ELEVATED TEMP Last administered on 07/18/16 09:16; Admin Dose 650 MG; Start 07/17/16 at 00:00 Metoclopramide HCl (Reglan) 10 mg Q6H PRN IV VOMITTING; Start 07/17/16 at 14:30 Metoprolol Tartrate 25 mg 25 mg BID PO ; Start 07/18/16 at 21:00 Ferric Sodium Gluconate Complex 125 mg/Sodium Chloride 110 ml @ 100 mls/hr Q24H IVPB Last administered on 07/18/16 15:20; Admin Dose 100 MLS/HR; Start at 15:30; Stop 07/20/16 at 16:35 Vancomycin HCl/ Sodium Chloride (Vancocin/NS) 150 ml @ 75 mls/hr Q12H IVPB Last administered on 07/18/16 18:02; Admin Dose 75 MLS/HR; Start 07/18/16 at 18 :00 CRESENCIO CASTILLO MD Jul 18, 2016 20:18
[2016-07-19] VITALS (26 sets, daily range): BP systolic 96–127; BP diastolic 52–72; PULSE 100–112; RESP 12–25
[2016-07-19 05:49] LABS: BASOPHILS % 0.3 % (0.0-2.0); EOSINOPHILS # 0.2 10^3/ul (0.0-0.5); EOSINOPHILS % 1.8 % (0.0-7.0); HEMOGLOBIN 11.8 g/dl (14.0-18.0); LYMPHOCYTES # 1.2 10^3/ul (0.8-2.9); MEAN CORPUSCULAR HEMOGLOBIN 23.6 pg (29.0-33.0); MEAN CORPUSCULAR VOLUME 76.3 fl (82.0-101.0); MEAN PLATELET VOLUME 11.1 fl (7.4-10.4); MONOCYTE # 0.7 10^3/ul (0.3-0.9); MONOCYTES % 7.5 % (0.0-11.0); NEUTROPHIL # 7.1 10^3/ul (1.6-7.5); NEUTROPHILS % 77.4 % (39.0-77.0); PLATELET COUNT 224 10^3/UL (140-440); RED BLOOD COUNT 4.99 10^6/ul (4.70-6.10); RED CELL DISTRIBUTION WIDTH 22.7 % (11.5-14.5); UNCORRECTED WBC 9.2 10^3/ul (4.8-10.8); WHITE BLOOD COUNT 9.2 10^3/ul (4.8-10.8)
[2016-07-19] MEDS: VANCOMYCIN 750 MG in SOD CHLORIDE 0.9% 150 ML IVPB SCH ×2 (05:49→18:44)
[2016-07-19] MEDS: LANSOPRAZOLE 30 MG CAP GTB SCH ×2 (05:49→17:52)
[2016-07-19 05:51] LABS: POTASSIUM 3.8 mmol/L (3.5-5.1)
[2016-07-19 05:54] LABS: CALCIUM 7.6 mg/dl (8.4-10.2); CREATININE 0.85 mg/dl (0.61-1.24)
[2016-07-19] MEDS ORDERED: BUMETANIDE 1 MG INJ IV SCH (06:00)
[2016-07-19 06:06] LABS: CONDITION 1; LH ANALYZER COMMENTS 1
[2016-07-19] MEDS: METOPROLOL 25 MG TAB PO SCH ×2 (09:00→21:00)
[2016-07-19] MEDS ORDERED: BUMETANIDE 2 MG in DEXTROSE 5% 17 ML IV SCH (09:00)
[2016-07-19] MEDS: NYSTATIN SUSP 5 ML CUP PO SCH ×3 (09:34→21:16)
[2016-07-19] MEDS: APIXABAN 5 MG TABLET PO SCH ×2 (09:34→21:17)
[2016-07-19] MEDS: POTASSIUM CHLORIDE 20 MEQ POWDER FOR ORAL SOLN NGT SCH (09:34)
[2016-07-19] MEDS: COLLAGENASE 30 GM TUBE TOP SCH (09:34)
--- NOTE | 2016-07-19 10:01 | CONS ---
Date/Time of Note Date/Time of Note DATE: 07/19/16 TIME: 09:57 Assessment/Plan Assessment/Plan Chief Complaint/Hosp Course 1. acute renal failure superimposed on CKD . his renal function has improved , some component of cardiorenal syndrome with a high BUN/Creatinine ratio . He has been in positive fluid balance the last 4 days . Bumex was stopped because of high serum sodium . Bumex was restarted 2 days ago , but still in positive fluid balance . I will increase dose of Bumex today . Follow electrolytes . I will sign off for now and will see on request 2. 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 CT surgery says that he is not a surgical candidate at this time . 3. CHF , with peripheral edema , edema is decreasing 4. hepatitis C with elevated liver enzymes 5. respiratory failure , ventilator dependent . 6. normal potassium , he is now on potassium and Bumex . 7. hypernatremia ,sodium is corrected , he is on tube feeding and water flushes . Problems: Consultation Date/Type/Reason Admit Date/Time Jun 26, 2016 at 11:39 Type of Consultation: renal Referring Provider: ASAD DAS MD, [facility] 24 HR Interval Summary Free Text/Dictation he is awake but not following commands , he has a Tracheostomy and is on the ventilator Subjective hx not possible: pt non-verbal Exam/Review of Systems Vital Signs Vitals Vital Signs Date Time Temp Pulse Resp B/P Pulse Ox O2 Delivery O2 Flow Rate FiO2 07/19/16 08:30 103 22 100 30 07/19/16 07:23 98.6 96/52 07/18/16 00:00 Mechanical Ventilator Intake and Output 07/18/16 07/18/16 07/19/16 15:00 23:00 07:00 Intake Total 50 ml 1190 ml 1040 ml Output Total 1200 ml 850 ml Balance 50 ml -10 ml 190 ml Exam Constitutional: non-verbal Respiratory: clear to auscultation Cardiovascular: murmurs/extra sounds, regular rate and rhythm Gastrointestinal: soft Extremities: edema Results Result Diagram: 07/19/16 0510 07/19/16 0510 Results 24 hrs Laboratory Tests Test 07/18/16 13:50 07/19/16 05:10 Vancomycin Level Trough 20.3 *H Anion Gap 14 Basophils # 0.0 Basophils % 0.3 Blood Morphology Comment Blood Urea Nitrogen 48 H Calcium Level 7.6 L Carbon Dioxide Level 25 Chloride Level 109 Creatinine 0.85 Eosinophils # 0.2 Eosinophils % 1.8 Glucose Level 109 Hematocrit 38.0 L Hemoglobin 11.8 L Lymphocytes # 1.2 Lymphocytes % 13.0 L Mean Corpuscular Hemoglobin 23.6 L Mean Corpuscular Hemoglobin Concent 31.0 L Mean Corpuscular Volume 76.3 L Mean Platelet Volume 11.1 H Monocytes # 0.7 Monocytes % 7.5 Neutrophils # 7.1 Neutrophils % 77.4 H Nucleated Red Blood Cells # 0.0 Nucleated Red Blood Cells % 0.0 Platelet Count 224 Potassium Level 3.8 Red Blood Count 4.99 Red Cell Distribution Width 22.7 H Sodium Level 144 White Blood Count 9.2 Medications Medications Current Medications Ondansetron HCl (Zofran Inj) 4 mg Q6H PRN IV NAUSEA AND/OR VOMITING; Start at 12:00 Nitroglycerin (Nitroglycerin (Sl Tab) 0.4 Mg) 1 tab Q5M PRN SL CHEST PAIN; Start 06/26/16 at 12:00 Morphine Sulfate (morphine) 2 mg Q4H PRN IV PAIN LEVEL 7-10 Last administered on 07/15/16 03:44; Admin Dose 2 MG; Start 06/26/16 at 12:00 Lorazepam (Ativan) 1 mg Q2H PRN IV ANXIETY Last administered on 07/15/16 05:13 ; Admin Dose 1 MG; Start 06/26/16 at 12:00 IV Flush (NS 10 ml) 10 ml PRN PRN IV IV PROTOCOL; Start 06/27/16 at 16:30 Nystatin 5 ml 5 ml TID PO Last administered on 07/19/16 09:34; Admin Dose 5 ML ; Start 06/30/16 at 21:00 Ceftriaxone Sodium (Rocephin) 50 ml @ 100 mls/hr Q24H IVPB Last administered on 07/18/16 15:12; Admin Dose 100 MLS/HR; Start 07/12/16 at 14:30 Apixaban (Eliquis) 10 mg BID PO Last administered on 07/19/16 09:34; Admin Dose 10 MG; Start 07/14/16 at 09:30; Stop 07/20/16 at 21:01 Apixaban (Eliquis) 5 mg BID PO ; Start 07/21/16 at 09:00 Lansoprazole 30 mg 30 mg BID@06,18 GTB Last administered on 07/19/16 05:49; Admin Dose 30 MG; Start 07/15/16 at 18:00 Fluconazole/ Sodium Chloride (Diflucan 100 Mg/ NS (Pmx)) 50 ml @ 50 mls/hr Q24H IVPB Last administered on 07/18/16 11:21; Admin Dose 50 MLS/HR; Start at 11:00 Potassium Chloride (Potassium Chloride Pwd/Soln) 30 meq DAILY NGT Last administered on 07/19/16 09:34; Admin Dose 30 MEQ; Start 07/16/16 at 12:30 Collagenase (Santyl) 1 applic DAILY TOP Last administered on 07/19/16 09:34; Admin Dose 1 APPLIC; Start 07/16/16 at 16:30 Acetaminophen (Tylenol Liquid) 650 mg Q4H PRN GTB PAIN AND OR ELEVATED TEMP Last administered on 07/18/16 09:16; Admin Dose 650 MG; Start 07/17/16 at 00:00 Metoclopramide HCl (Reglan) 10 mg Q6H PRN IV VOMITTING; Start 07/17/16 at 14:30 Metoprolol Tartrate 25 mg 25 mg BID PO Last administered on 07/18/16 20:49; Admin Dose 25 MG; Start 07/18/16 at 21:00 Ferric Sodium Gluconate Complex 125 mg/Sodium Chloride 110 ml @ 100 mls/hr Q24H IVPB Last administered on 07/18/16 15:20; Admin Dose 100 MLS/HR; Start at 15:30; Stop 07/20/16 at 16:35 Vancomycin HCl 750 mg/Sodium Chloride 150 ml @ 75 mls/hr Q12H IVPB Last administered on 07/19/16 05:49; Admin Dose 75 MLS/HR; Start 07/18/16 at 18:00 Bumetanide/ Dextrose (Bumex/D5W) 25 ml @ 50 mls/hr BID IV Last administered on 07/19/16 09:33; Admin Dose 50 MLS/HR; Start 07/19/16 at 09:00 CRESENCIO CASTILLO MD Jul 19, 2016 10:01
[2016-07-19] MEDS: FLUCONAZOLE 100 MG/NS (PMX) 50 ML IVPB SCH (11:00)
[2016-07-19] MEDS ORDERED: ALTEPLASE (CATHFLO) 2 MG INJ CATHETER ONE (12:00)
--- NOTE | 2016-07-19 12:02 | PN ---
Date/Time of Note Date/Time of Note DATE: 07/19/16 TIME: 12:00 Assessment/Plan VTE Prophylaxis VTE Prophylaxis Intervention: other (Eliquis) Lines/Catheters IV Catheter Type (from Nrs): PICC Line Central line still needed: Yes Urinary Cath still in place: Yes Reason Cath still needed: urinary retention Assessment/Plan Chief Complaint/Hosp Course Assessment/Plan: 36 yo unfortunate male with a past medical history of Bacterial Endocarditis finished 6 week course of IV antibiotics, Drug abuse, Nicotine abuse, Right popliteal thrombosis, PE (on Eliquis prior to admission), Microcytic anemia, CHF - diastolic, who came for worsening shortness of breath. 1. hypoxemic respiratory failure - - multifactorial - heart failure acute on chronic - still Vent dependent - trach - f/u pulm rec's - for possible Salazar placement - CM actively working on this with pt's IPA - f/u 2. Mild SIRS with intermittent low grade fever / trach aspirate showed some heath and + pneumonia (HCAP) + endocarditis. Ucx also + for heath > 100,000 CFU -- continue IV vanco, Rocephin, PO diflucan - IV diflucan as well - continue abx per ID 3. CHF - diastolic dysfunction acute on chronic - EF recent shows 40%, D shaped left ventricle -Ongoing diuresis with Bumex per Nephrology - back on this med now - f/u CV and renal rec's 4. Encephalopathy: still fairly early to call permanent brain injury, continue close monitoring and status optimization for now 5. BESSIE - acute on chronic - 2/2 #2 - patient seems to be at baseline now - nephrology managing / appreciate input 6. Transaminitis - 2/2 to sepsis, monitor trend - much improved 7. PE - now on eliquis as no further intervention planned at the present time 8. Right popliteal thrombus - eliquis / no thrombus on recent LE USS 9. Microcytic anemia - monitor H/H, transfuse if hgb < 8 g/dL. Pt has been given IV iron as well. 10. GI ppx - Lansoprazole 11. DVT ppx -eliquis 12. DNR / DNI 13. S/p PEG placement for dysphagia / new trach 14. Hypernatremia - appreciate nephrology consult - resolved now - monitor, f/u renal rec's dispo -Continue supportive care and vent mgt and tube feeds. Case mgt to plan placement / probable Salazar versus subacute when cleared by pulm -Monitor fever curve and WBC count -Possible valve replacement surgery in future if more medically stable then Problems: Subjective 24 Hr Interval Summary Free Text/Dictation No acute events overnight, seen by renal team this AM. Exam/Review of Systems Vital Signs Vitals Vital Signs Date Time Temp Pulse Resp B/P Pulse Ox O2 Delivery O2 Flow Rate FiO2 07/19/16 11:25 98.4 108 20 106/57 100 07/19/16 09:00 30 07/18/16 00:00 Mechanical Ventilator Intake and Output 07/18/16 07/18/16 07/19/16 15:00 23:00 07:00 Intake Total 50 ml 1190 ml 1040 ml Output Total 1200 ml 850 ml Balance 50 ml -10 ml 190 ml Exam Constitutional: No alert, No non-verbal, No oriented Eyes: PERRL Neck: other (trach to vent) Respiratory: diminished breath sounds Cardiovascular: murmurs/extra sounds Gastrointestinal: bowel sounds, other (PEG), soft Extremities: pitting pedal edema Neurological: No nl mental status, No nl speech, No nl strength Results Result Diagram: 07/19/16 0510 07/19/16 0510 Results 24 hrs Laboratory Tests Test 07/18/16 13:50 07/19/16 05:10 Vancomycin Level Trough 20.3 *H Anion Gap 14 Basophils # 0.0 Basophils % 0.3 Blood Morphology Comment Blood Urea Nitrogen 48 H Calcium Level 7.6 L Carbon Dioxide Level 25 Chloride Level 109 Creatinine 0.85 Eosinophils # 0.2 Eosinophils % 1.8 Glucose Level 109 Hematocrit 38.0 L Hemoglobin 11.8 L Lymphocytes # 1.2 Lymphocytes % 13.0 L Mean Corpuscular Hemoglobin 23.6 L Mean Corpuscular Hemoglobin Concent 31.0 L Mean Corpuscular Volume 76.3 L Mean Platelet Volume 11.1 H Monocytes # 0.7 Monocytes % 7.5 Neutrophils # 7.1 Neutrophils % 77.4 H Nucleated Red Blood Cells # 0.0 Nucleated Red Blood Cells % 0.0 Platelet Count 224 Potassium Level 3.8 Red Blood Count 4.99 Red Cell Distribution Width 22.7 H Sodium Level 144 White Blood Count 9.2 Medications Medications Current Medications Ondansetron HCl (Zofran Inj) 4 mg Q6H PRN IV NAUSEA AND/OR VOMITING; Start at 12:00 Nitroglycerin (Nitroglycerin (Sl Tab) 0.4 Mg) 1 tab Q5M PRN SL CHEST PAIN; Start 06/26/16 at 12:00 Morphine Sulfate (morphine) 2 mg Q4H PRN IV PAIN LEVEL 7-10 Last administered on 07/15/16 03:44; Admin Dose 2 MG; Start 06/26/16 at 12:00 Lorazepam (Ativan) 1 mg Q2H PRN IV ANXIETY Last administered on 07/15/16 05:13 ; Admin Dose 1 MG; Start 06/26/16 at 12:00 IV Flush (NS 10 ml) 10 ml PRN PRN IV IV PROTOCOL; Start 06/27/16 at 16:30 Nystatin 5 ml 5 ml TID PO Last administered on 07/19/16 09:34; Admin Dose 5 ML ; Start 06/30/16 at 21:00 Ceftriaxone Sodium (Rocephin) 50 ml @ 100 mls/hr Q24H IVPB Last administered on 07/18/16 15:12; Admin Dose 100 MLS/HR; Start 07/12/16 at 14:30 Apixaban (Eliquis) 10 mg BID PO Last administered on 07/19/16 09:34; Admin Dose 10 MG; Start 07/14/16 at 09:30; Stop 07/20/16 at 21:01 Apixaban (Eliquis) 5 mg BID PO ; Start 07/21/16 at 09:00 Lansoprazole 30 mg 30 mg BID@06,18 GTB Last administered on 07/19/16 05:49; Admin Dose 30 MG; Start 07/15/16 at 18:00 Fluconazole/ Sodium Chloride (Diflucan 100 Mg/ NS (Pmx)) 50 ml @ 50 mls/hr Q24H IVPB Last administered on 07/19/16 11:00; Admin Dose 50 MLS/HR; Start at 11:00 Potassium Chloride (Potassium Chloride Pwd/Soln) 30 meq DAILY NGT Last administered on 07/19/16 09:34; Admin Dose 30 MEQ; Start 07/16/16 at 12:30 Collagenase (Santyl) 1 applic DAILY TOP Last administered on 07/19/16 09:34; Admin Dose 1 APPLIC; Start 07/16/16 at 16:30 Acetaminophen (Tylenol Liquid) 650 mg Q4H PRN GTB PAIN AND OR ELEVATED TEMP Last administered on 07/18/16 09:16; Admin Dose 650 MG; Start 07/17/16 at 00:00 Metoclopramide HCl (Reglan) 10 mg Q6H PRN IV VOMITTING; Start 07/17/16 at 14:30 Metoprolol Tartrate 25 mg 25 mg BID PO Last administered on 07/18/16 20:49; Admin Dose 25 MG; Start 07/18/16 at 21:00 Ferric Sodium Gluconate Complex 125 mg/Sodium Chloride 110 ml @ 100 mls/hr Q24H IVPB Last administered on 07/18/16 15:20; Admin Dose 100 MLS/HR; Start at 15:30; Stop 07/20/16 at 16:35 Vancomycin HCl 750 mg/Sodium Chloride 150 ml @ 75 mls/hr Q12H IVPB Last administered on 07/19/16 05:49; Admin Dose 75 MLS/HR; Start 07/18/16 at 18:00 Bumetanide/ Dextrose (Bumex/D5W) 25 ml @ 50 mls/hr Q8 IV ; Start 07/19/16 at 14: 00 Alteplase, Recombinant (Cathflo (Activase)) 2 mg ONCE ONCE CATHETER ; Start at 12:00; Stop 07/19/16 at 12:01 ROBERTO DAVISON Jul 19, 2016 12:02
--- NOTE | 2016-07-19 12:48 | CONS ---
Date/Time of Note Date/Time of Note DATE: 07/19/16 TIME: 12:45 Assessment/Plan Assessment/Plan Chief Complaint/Hosp Course IMPRESSION: 1. Congestive heart failure exacerbation, systolic, acute on chronic with last known EF approximately 40% by echo May 2016.-improved volume status 2. Aortic regurgitation, moderate to severe with possible ongoing vegetation by most recent echo May 2016. 3. Mitral regurgitation, moderate to severe. 4. History of recent endocarditis status post 6-week course of antibiotics. 5. Cardiomyopathy with decreased left ventricular ejection fraction last approximately 40% by echo 06/14/2016. 6. Coagulopathy-resolved 7. Renal failure-slowly improving again 9. Increased LFTs-improving 10. Increased Na 12. Mild anemia. 13.Resp failure s/p trach 14. s/p Code blue 15.DNR 16.dysphagia s/p G tube Recc: -Tele -Reduce BB/hydralazine as tolerated only following BP/HR closely -Continue apixaban -Per CT surgery not a candidate for valve replacement at this time due to high risk -F/U blood cultures -Continue abx's -Follow volume status closely, currently back on Bumex -Will give additional IVP of digoxin Problems: Consultation Date/Type/Reason Admit Date/Time Jun 26, 2016 at 11:39 Initial Consult Date 06/27/2016 Type of Consultation: Cardiology Reason for Consultation CHF/MR/AR Referring Provider: ASAD DAS MD, [facility] Exam/Review of Systems Vital Signs Vitals Vital Signs Date Time Temp Pulse Resp B/P Pulse Ox O2 Delivery O2 Flow Rate FiO2 07/19/16 12:31 112 07/19/16 11:25 98.4 20 106/57 100 07/19/16 09:00 30 07/18/16 00:00 Mechanical Ventilator Intake and Output 07/18/16 07/18/16 07/19/16 15:00 23:00 07:00 Intake Total 50 ml 1190 ml 1040 ml Output Total 1200 ml 850 ml Balance 50 ml -10 ml 190 ml Exam Review of Systems: CONSTITUTIONAL: No fevers, chills. PULMONARY: No sob CARDIOVASCULAR: No chest pain/palpitations GASTROINTESTINAL: No nausea/vomiting. GENITOURINARY: No hematuria/dysuria. MUSCULOSKELETAL: No myagias/arthalgias. PSYCHIATRIC: The patient denies depression. NEUROLOGIC: No weakness Constitutional: other (lethargic) Psych: no complaints Head: normocephalic ENMT: mucosa pink and moist Neck: jvd, supple Respiratory: diminished breath sounds (at bases/B) Cardiovascular: regular rate and rhythm Gastrointestinal: non-tender, soft Musculoskeletal: muscle tone (normal) Extremities: edema (none) Neurological: confused Results Result Diagram: 07/19/16 0510 07/19/16 0510 Results 24 hrs Laboratory Tests Test 07/18/16 13:50 07/19/16 05:10 Vancomycin Level Trough 20.3 *H Anion Gap 14 Basophils # 0.0 Basophils % 0.3 Blood Morphology Comment Blood Urea Nitrogen 48 H Calcium Level 7.6 L Carbon Dioxide Level 25 Chloride Level 109 Creatinine 0.85 Eosinophils # 0.2 Eosinophils % 1.8 Glucose Level 109 Hematocrit 38.0 L Hemoglobin 11.8 L Lymphocytes # 1.2 Lymphocytes % 13.0 L Mean Corpuscular Hemoglobin 23.6 L Mean Corpuscular Hemoglobin Concent 31.0 L Mean Corpuscular Volume 76.3 L Mean Platelet Volume 11.1 H Monocytes # 0.7 Monocytes % 7.5 Neutrophils # 7.1 Neutrophils % 77.4 H Nucleated Red Blood Cells # 0.0 Nucleated Red Blood Cells % 0.0 Platelet Count 224 Potassium Level 3.8 Red Blood Count 4.99 Red Cell Distribution Width 22.7 H Sodium Level 144 White Blood Count 9.2 Medications Medications Current Medications Ondansetron HCl (Zofran Inj) 4 mg Q6H PRN IV NAUSEA AND/OR VOMITING; Start at 12:00 Nitroglycerin (Nitroglycerin (Sl Tab) 0.4 Mg) 1 tab Q5M PRN SL CHEST PAIN; Start 06/26/16 at 12:00 Morphine Sulfate (morphine) 2 mg Q4H PRN IV PAIN LEVEL 7-10 Last administered on 07/15/16 03:44; Admin Dose 2 MG; Start 06/26/16 at 12:00 Lorazepam (Ativan) 1 mg Q2H PRN IV ANXIETY Last administered on 07/15/16 05:13 ; Admin Dose 1 MG; Start 06/26/16 at 12:00 IV Flush (NS 10 ml) 10 ml PRN PRN IV IV PROTOCOL; Start 06/27/16 at 16:30 Nystatin 5 ml 5 ml TID PO Last administered on 07/19/16 09:34; Admin Dose 5 ML ; Start 06/30/16 at 21:00 Ceftriaxone Sodium (Rocephin) 50 ml @ 100 mls/hr Q24H IVPB Last administered on 07/18/16 15:12; Admin Dose 100 MLS/HR; Start 07/12/16 at 14:30 Apixaban (Eliquis) 10 mg BID PO Last administered on 07/19/16 09:34; Admin Dose 10 MG; Start 07/14/16 at 09:30; Stop 07/20/16 at 21:01 Apixaban (Eliquis) 5 mg BID PO ; Start 07/21/16 at 09:00 Lansoprazole 30 mg 30 mg BID@06,18 GTB Last administered on 07/19/16 05:49; Admin Dose 30 MG; Start 07/15/16 at 18:00 Fluconazole/ Sodium Chloride (Diflucan 100 Mg/ NS (Pmx)) 50 ml @ 50 mls/hr Q24H IVPB Last administered on 07/19/16 11:00; Admin Dose 50 MLS/HR; Start at 11:00 Potassium Chloride (Potassium Chloride Pwd/Soln) 30 meq DAILY NGT Last administered on 07/19/16 09:34; Admin Dose 30 MEQ; Start 07/16/16 at 12:30 Collagenase (Santyl) 1 applic DAILY TOP Last administered on 07/19/16 09:34; Admin Dose 1 APPLIC; Start 07/16/16 at 16:30 Acetaminophen (Tylenol Liquid) 650 mg Q4H PRN GTB PAIN AND OR ELEVATED TEMP Last administered on 07/18/16 09:16; Admin Dose 650 MG; Start 07/17/16 at 00:00 Metoclopramide HCl (Reglan) 10 mg Q6H PRN IV VOMITTING; Start 07/17/16 at 14:30 Metoprolol Tartrate 25 mg 25 mg BID PO Last administered on 07/18/16 20:49; Admin Dose 25 MG; Start 07/18/16 at 21:00 Ferric Sodium Gluconate Complex 125 mg/Sodium Chloride 110 ml @ 100 mls/hr Q24H IVPB Last administered on 07/18/16 15:20; Admin Dose 100 MLS/HR; Start at 15:30; Stop 07/20/16 at 16:35 Vancomycin HCl 750 mg/Sodium Chloride 150 ml @ 75 mls/hr Q12H IVPB Last administered on 07/19/16t 05:49; Admin Dose 75 MLS/HR; Start 07/18/16 at 18:00 Bumetanide/ Dextrose (Bumex/D5W) 25 ml @ 50 mls/hr Q8 IV ; Start 07/19/16 at 14: 00 SEVERO STUBBS Jul 19, 2016 12:48
--- NOTE | 2016-07-19 13:57 | CONS ---
Date/Time of Note Date/Time of Note DATE: 07/19/16 TIME: 13:52 Assessment/Plan Assessment/Plan Additional Assessment/Plan 1. Microcytic anemia: occult blood negative on 07-16-16. h/h slowly trending down but stable. 2. Transaminitis - 2/2 to sepsis and HCV (HCV RNA 9, 017,009). Currently transaminase stable 3. Encephalopathy 4. Shortness of breath - hypoxemic respiratory failure - multifactorial - heart failure acute on chronic - Vent dependent - s/p trach 5. Sepsis severe 2/2 to pneumonia - tachycardia/leukocytosis - HCAP - IV cefepime, levaquin, vanc - respiratory cultures, monitor trend - improving 6. CHF - diastolic dysfunction acute on chronic - EF recent shows 40%, D shaped left ventricle 7. Dysphagia, s/p PEG placement, tolerating tube feeds. 8. Diarrhea, rule out C. difficile Recommendations: 1. continue prevacid to BID via G-tube as h/h slowly trending down. 2. monitor H/H, transfuse if hgb < 8 g/dL. Pt has been given IV iron as well. 3. Recommend outpatient follow-up with [employer] for HCV treatment. No indication for in-patient treatment. 4. continue tube feeds and hold for residual greater than 150mL. 5. other supportive care per primary and other consultants. 6. Patient seen in collaboration with . Consultation Date/Type/Reason Admit Date/Time Jun 26, 2016 at 11:39 Type of Consultation: Gastroenterology Referring Provider: [facility] DAS MD, [facility] Interval Summary Free Text/Dictation Tube feed at 45 with minimal residual Stool sample in process for C. difficile evaluation Exam/Review of Systems Vital Signs Vitals Vital Signs Date Time Temp Pulse Resp B/P Pulse Ox O2 Delivery O2 Flow Rate FiO2 07/19/16 12:31 112 07/19/16 11:25 98.4 20 106/57 100 07/19/16 09:00 30 07/18/16 00:00 Mechanical Ventilator Intake and Output 07/18/16 07/18/16 07/19/16 15:00 23:00 07:00 Intake Total 50 ml 1190 ml 1040 ml Output Total 1200 ml 850 ml Balance 50 ml -10 ml 190 ml Exam Psych: alert Head: atraumatic, normocephalic Eyes: EOMI, nl conjunctiva, nl lids, nl sclera ENMT: mucosa pink and moist, nl external ears & nose, nl lips & teeth, nl nasal mucosa & septum Neck: non-tender, supple Respiratory: clear to auscultation, normal air movement Cardiovascular: nl pulses, regular rate and rhythm Gastrointestinal: bowel sounds, non-tender, soft Results Result Diagram: 07/19/16 0510 07/19/16 0510 Results 24 hrs Laboratory Tests Test 07/19/16 05:10 Anion Gap 14 Basophils # 0.0 Basophils % 0.3 Blood Morphology Comment Blood Urea Nitrogen 48 H Calcium Level 7.6 L Carbon Dioxide Level 25 Chloride Level 109 Creatinine 0.85 Eosinophils # 0.2 Eosinophils % 1.8 Glucose Level 109 Hematocrit 38.0 L Hemoglobin 11.8 L Lymphocytes # 1.2 Lymphocytes % 13.0 L Mean Corpuscular Hemoglobin 23.6 L Mean Corpuscular Hemoglobin Concent 31.0 L Mean Corpuscular Volume 76.3 L Mean Platelet Volume 11.1 H Monocytes # 0.7 Monocytes % 7.5 Neutrophils # 7.1 Neutrophils % 77.4 H Nucleated Red Blood Cells # 0.0 Nucleated Red Blood Cells % 0.0 Platelet Count 224 Potassium Level 3.8 Red Blood Count 4.99 Red Cell Distribution Width 22.7 H Sodium Level 144 White Blood Count 9.2 Medications Medications Current Medications Ondansetron HCl (Zofran Inj) 4 mg Q6H PRN IV NAUSEA AND/OR VOMITING; Start at 12:00 Nitroglycerin (Nitroglycerin (Sl Tab) 0.4 Mg) 1 tab Q5M PRN SL CHEST PAIN; Start 06/26/16 at 12:00 Morphine Sulfate (morphine) 2 mg Q4H PRN IV PAIN LEVEL 7-10 Last administered on 07/15/16 03:44; Admin Dose 2 MG; Start 06/26/16 at 12:00 Lorazepam (Ativan) 1 mg Q2H PRN IV ANXIETY Last administered on 07/15/16 05:13 ; Admin Dose 1 MG; Start 06/26/16 at 12:00 IV Flush (NS 10 ml) 10 ml PRN PRN IV IV PROTOCOL; Start 06/27/16 at 16:30 Nystatin 5 ml 5 ml TID PO Last administered on 07/19/16 13:07; Admin Dose 5 ML ; Start 06/30/16 at 21:00 Ceftriaxone Sodium (Rocephin) 50 ml @ 100 mls/hr Q24H IVPB Last administered on 07/18/16 15:12; Admin Dose 100 MLS/HR; Start 07/12/16 at 14:30 Apixaban (Eliquis) 10 mg BID PO Last administered on 07/19/16 09:34; Admin Dose 10 MG; Start 07/14/16 at 09:30; Stop 07/20/16 at 21:01 Apixaban (Eliquis) 5 mg BID PO ; Start 07/21/16 at 09:00 Lansoprazole 30 mg 30 mg BID@06,18 GTB Last administered on 07/19/16 05:49; Admin Dose 30 MG; Start 07/15/16 at 18:00 Fluconazole/ Sodium Chloride (Diflucan 100 Mg/ NS (Pmx)) 50 ml @ 50 mls/hr Q24H IVPB Last administered on 07/19/16 11:00; Admin Dose 50 MLS/HR; Start at 11:00 Potassium Chloride (Potassium Chloride Pwd/Soln) 30 meq DAILY NGT Last administered on 07/19/16 09:34; Admin Dose 30 MEQ; Start 07/16/16 at 12:30 Collagenase (Santyl) 1 applic DAILY TOP Last administered on 07/19/16 09:34; Admin Dose 1 APPLIC; Start 07/16/16 at 16:30 Acetaminophen (Tylenol Liquid) 650 mg Q4H PRN GTB PAIN AND OR ELEVATED TEMP Last administered on 07/18/16 09:16; Admin Dose 650 MG; Start 07/17/16 at 00:00 Metoclopramide HCl 10 mg 10 mg Q6H PRN IV VOMITTING; Start 07/17/16 at 14:30 Ferric Sodium Gluconate Complex 125 mg/Sodium Chloride 110 ml @ 100 mls/hr Q24H IVPB Last administered on 07/18/16 15:20; Admin Dose 100 MLS/HR; Start at 15:30; Stop 07/20/16 at 16:35 Vancomycin HCl 750 mg/Sodium Chloride 150 ml @ 75 mls/hr Q12H IVPB Last administered on 1/19/17at 05:49; Admin Dose 75 MLS/HR; Start 07/18/16 at 18:00 Bumetanide/ Dextrose (Bumex/D5W) 25 ml @ 50 mls/hr Q8 IV ; Start 07/19/16 at 14: 00 Metoprolol Tartrate (Lopressor) 12.5 mg BID PO ; Start 07/19/16 at 21:00 Miscellaneous Information (*Rx Drug Level Order Reminder*) 1 ONCE ONCE XX ; Start 07/20/16 at 05:00; Stop 07/20/16 at 05:01 DARIUSZ GARZA Jul 19, 2016 13:57
--- NOTE | 2016-07-19 14:34 | CONS ---
Date/Time of Note Date/Time of Note DATE: 07/19/16 TIME: 14:32 Consult Date/Type/Reason Admit Date/Time Jun 26, 2016 at 11:39 Type of Consultation: ID Ordering Provider: [facility]AS MD, [facility] Subjective no acute changes, sleeping, mother at bedside, no fevers, nad Objective Vital Signs Date Time Temp Pulse Resp B/P Pulse Ox O2 Delivery O2 Flow Rate FiO2 07/19/16 12:31 112 07/19/16 11:25 98.4 20 106/57 100 07/19/16 09:00 30 07/18/16 00:00 Mechanical Ventilator Intake and Output 07/18/16 07/18/16 07/19/16 15:00 23:00 07:00 Intake Total 50 ml 1190 ml 1040 ml Output Total 1200 ml 850 ml Balance 50 ml -10 ml 190 ml Results/Medications Result Diagram: 07/19/16 0510 07/19/16 0510 Results 24 hrs Laboratory Tests Test 07/19/16 05:10 Anion Gap 14 Basophils # 0.0 Basophils % 0.3 Blood Morphology Comment Blood Urea Nitrogen 48 H Calcium Level 7.6 L Carbon Dioxide Level 25 Chloride Level 109 Creatinine 0.85 Eosinophils # 0.2 Eosinophils % 1.8 Glucose Level 109 Hematocrit 38.0 L Hemoglobin 11.8 L Lymphocytes # 1.2 Lymphocytes % 13.0 L Mean Corpuscular Hemoglobin 23.6 L Mean Corpuscular Hemoglobin Concent 31.0 L Mean Corpuscular Volume 76.3 L Mean Platelet Volume 11.1 H Monocytes # 0.7 Monocytes % 7.5 Neutrophils # 7.1 Neutrophils % 77.4 H Nucleated Red Blood Cells # 0.0 Nucleated Red Blood Cells % 0.0 Platelet Count 224 Potassium Level 3.8 Red Blood Count 4.99 Red Cell Distribution Width 22.7 H Sodium Level 144 White Blood Count 9.2 Medications Current Medications Ondansetron HCl (Zofran Inj) 4 mg Q6H PRN IV NAUSEA AND/OR VOMITING; Start at 12:00 Nitroglycerin (Nitroglycerin (Sl Tab) 0.4 Mg) 1 tab Q5M PRN SL CHEST PAIN; Start 06/26/16 at 12:00 Morphine Sulfate (morphine) 2 mg Q4H PRN IV PAIN LEVEL 7-10 Last administered on 07/15/16 03:44; Admin Dose 2 MG; Start 06/26/16 at 12:00 Lorazepam (Ativan) 1 mg Q2H PRN IV ANXIETY Last administered on 07/15/16 05:13 ; Admin Dose 1 MG; Start 06/26/16 at 12:00 IV Flush (NS 10 ml) 10 ml PRN PRN IV IV PROTOCOL; Start 06/27/16 at 16:30 Nystatin 5 ml 5 ml TID PO Last administered on 07/19/16 13:07; Admin Dose 5 ML ; Start 06/30/16 at 21:00 Ceftriaxone Sodium (Rocephin) 50 ml @ 100 mls/hr Q24H IVPB Last administered on 07/18/16 15:12; Admin Dose 100 MLS/HR; Start 07/12/16 at 14:30 Apixaban (Eliquis) 10 mg BID PO Last administered on 07/19/16 09:34; Admin Dose 10 MG; Start 07/14/16 at 09:30; Stop 07/20/16 at 21:01 Apixaban (Eliquis) 5 mg BID PO ; Start 07/21/16 at 09:00 Lansoprazole 30 mg 30 mg BID@06,18 GTB Last administered on 07/19/16 05:49; Admin Dose 30 MG; Start 07/15/16 at 18:00 Fluconazole/ Sodium Chloride (Diflucan 100 Mg/ NS (Pmx)) 50 ml @ 50 mls/hr Q24H IVPB Last administered on 07/19/16 11:00; Admin Dose 50 MLS/HR; Start at 11:00 Potassium Chloride (Potassium Chloride Pwd/Soln) 30 meq DAILY NGT Last administered on 07/19/16 09:34; Admin Dose 30 MEQ; Start 07/16/16 at 12:30 Collagenase (Santyl) 1 applic DAILY TOP Last administered on 07/19/16 09:34; Admin Dose 1 APPLIC; Start 07/16/16 at 16:30 Acetaminophen (Tylenol Liquid) 650 mg Q4H PRN GTB PAIN AND OR ELEVATED TEMP Last administered on 07/18/16 09:16; Admin Dose 650 MG; Start 07/17/16 at 00:00 Metoclopramide HCl 10 mg 10 mg Q6H PRN IV VOMITTING; Start 07/17/16 at 14:30 Ferric Sodium Gluconate Complex 125 mg/Sodium Chloride 110 ml @ 100 mls/hr Q24H IVPB Last administered on 07/18/16t 15:20; Admin Dose 100 MLS/HR; Start at 15:30; Stop 07/20/16 at 16:35 Vancomycin HCl 750 mg/Sodium Chloride 150 ml @ 75 mls/hr Q12H IVPB Last administered on 07/19/16t 05:49; Admin Dose 75 MLS/HR; Start 07/18/16 at 18:00 Bumetanide/ Dextrose (Bumex/D5W) 25 ml @ 50 mls/hr Q8 IV ; Start 07/19/16 at 14: 00 Metoprolol Tartrate (Lopressor) 12.5 mg BID PO ; Start 07/19/16 at 21:00 Miscellaneous Information (*Rx Drug Level Order Reminder*) 1 ONCE ONCE XX ; Start 07/20/16 at 05:00; Stop 07/20/16 at 05:01 Assessment/Plan Chief Complaint/Hosp Course MICROBIOLOGY: Urine culture since 07/14 growing Saniya albicans. Blood culture on 07/17, 07/18 + gram-positive cocci in clusters. INDWELLINGS: Trach, PEG, Merino. PICC line placed on admission on 06/27. ANTIMICROBIALS: The patient is on: 1. IV vancomycin. 2. Fluconazole. 3. Rocephin. PHYSICAL EXAMINATION: GENERAL: Chronically ill-appearing middle-aged man who is lying comfortably in bed. HEENT: Head atraumatic, normocephalic. Sclerae anicteric. Buccal mucosa dry. NECK: Supple. Tracheostomy present. CHEST: Rise symmetrical. Breath sounds diminished to bases. HEART: S1, S2. ABDOMEN: Soft. Bowel tones present. EXTREMITIES: Without cyanosis. Right upper extremity dressing intact. ASSESSMENT: 1. Sepsis with gram-positive cocci bacteremia 2 to line sepsis. 2. Acute on chronic respiratory failure, status post tracheostomy. 3. Urinary tract infection. 4. Severe cardiomyopathy. 5. Aortic and mitral valve vegetations with a history of alpha-hemolytic streptococcus bacteremia in 03/2016. 6. History of intravenous drug use. PLAN: The patient remains stable, repeat bld cx from PICC growing Staph, will dc PICC, continue abx, line holiday if possible DW mother at bedside Problems: RAYMNOD HER NP Jul 19, 2016 14:34
[2016-07-19] MEDS: BUMETANIDE 2 MG in DEXTROSE 5% 17 ML IV SCH ×2 (14:37→23:27)
[2016-07-19] MEDS: CEFTRIAXONE 2 GM/50 ML (PMX) 50 ML IVPB SCH (14:38)
--- NOTE | 2016-07-19 14:40 | PN ---
DATE: 07/19/2016 PULMONARY FOLLOWUP NOTE SUBJECTIVE: The patient is stable, no new events. PHYSICAL EXAMINATION: VITAL SIGNS: Temperature 98, pulse is 108, blood pressure 106/57, O2 saturation 96% on 30% FIO2. NECK: Trach site clean and intact. CARDIAC: S1, S2, no added sounds or murmurs. CHEST: Diminished air entry bilaterally. ABDOMEN: Soft, nontender. No guarding or rebound. EXTREMITIES: No cyanosis, clubbing, 1+ edema. NEUROLOGIC: Generalized weakness. LABORATORIES: White count 9.2, hemoglobin 11.8, platelets within normal limits. Chemistry within n ormal limits. IMPRESSION AND PLAN: 1. Respiratory failure, now with tracheostomy. 2. Dysphagia with G-tube. 3. Resolving renal failure. 4. Congestive cardiac failure. 5. Polysubstance abuse. 6. History of bacterial endocarditis. PLAN: 1. Continue renal recommendations. 2. Vent support. 3. Tube feeding. 4. DVT and GI prophylaxis. From a pulmonary standpoint, the patient can be discharged to [facility]dc facility. Dictated By: ASAD SPENCER/BRANDO Conf#: [id number] DID#: [id number]
[2016-07-19] MEDS: SOD FERRIC GLUC COMPLX 125 MG in SOD CHLORIDE 0.9% 100 ML IVPB SCH (16:10)
[2016-07-19] MEDS ORDERED: LIDOCAINE 1% (MDV) 20 ML INJ SC ONE (16:30)
[2016-07-19] MEDS: LORAZEPAM 2 MG INJ IV PRN (23:27)
--- NOTE | 2016-07-19 23:29 | RADRPT ---
PROCEDURE: Ultrasound guidance for placement of needle in right upper extremity vein. CLINICAL INDICATION: Venous access. TECHNIQUE: Limited sonography of the right upper extremity was performed. Ultrasound images were recorded and stored in the patient's medical record. COMPARISON: None. FINDINGS: The ultrasound images demonstrate a patent right upper extremity vein. The PICC line was inserted b y the PICC line nurse. IMPRESSION: 1. Ultrasound guidance for a needle placement in a right upper extremity vein. 2. The visualized right upper extremity vein is patent. RPTAT: QQ .Radu Schneider MD, MD Date Time Electronically viewed and signed by .Radu Schneider MD, MD on 07/19/2016 23:29 .R/
--- NOTE | 2016-07-19 23:30 | RADRPT ---
PROCEDURE: XR Chest. CLINICAL INDICATION: Check PICC line position. TECHNIQUE: Single frontal view. COMPARISON: 07/17/2016. FINDINGS: There is a left arm PICC line with the tip in the lower superior vena cava as seen previously. Ther e is a new right arm PICC line with the tip in the lower superior vena cava. The tracheostomy tube remains in satisfactory position. There is left basilar atelectasis, unchanged. There is mild righ t basilar atelectasis. The heart is enlarged. There is no pleural effusion. There is no pneumothorax. IMPRESSION: 1. Satisfactory position of new right arm PICC line. 2. Unchanged left arm PICC line. 3. No other change from 07/17/2016 RPTAT: QQ .Radu Schneider MD, Date Time Electronically viewed and signed by .Radu Schneider MD, MD on 07/19/2016 23:30 .R/
[2016-07-20] VITALS (16 sets, daily range): BP systolic 96–121; BP diastolic 55–71; PULSE 101–110; RESP 16–26
[2016-07-20] MEDS: BUMETANIDE 2 MG in DEXTROSE 5% 17 ML IV SCH (06:22)
[2016-07-20] MEDS: LANSOPRAZOLE 30 MG CAP GTB SCH (06:24)
[2016-07-20 06:30] LABS: ALBUMIN 2.2 g/dl (3.3-4.9); POTASSIUM 3.2 mmol/L (3.5-5.1)
[2016-07-20 06:32] LABS: CREATININE 0.78 mg/dl (0.61-1.24)
[2016-07-20 06:33] LABS: ALBUMIN/GLOBULIN RATIO 0.73; BILIRUBIN,INDIRECT 0.2 mg/dl (0-1.1); BILIRUBIN,TOTAL 0.2 mg/dl (0.2-1.3); CALCIUM 7.6 mg/dl (8.4-10.2); TOTAL PROTEIN 5.2 g/dl (6.1-8.1)
[2016-07-20 06:34] LABS: MAGNESIUM 1.7 mg/dl (1.7-2.5)
[2016-07-20 06:35] LABS: BASOPHILS % 0.1 % (0.0-2.0); EOSINOPHILS # 0.3 10^3/ul (0.0-0.5); EOSINOPHILS % 3.2 % (0.0-7.0); HEMATOCRIT 37.1 % (42.0-52.0); HEMOGLOBIN 11.4 g/dl (14.0-18.0); LYMPHOCYTES # 1.1 10^3/ul (0.8-2.9); LYMPHOCYTES % 13.5 % (15.0-51.0); MEAN CORPUSCULAR HEMOGLOBIN 23.3 pg (29.0-33.0); MEAN CORPUSCULAR HGB CONC 30.6 g/dl (32.0-37.0); MEAN CORPUSCULAR VOLUME 75.9 fl (82.0-101.0); MEAN PLATELET VOLUME 10.6 fl (7.4-10.4); MONOCYTE # 0.6 10^3/ul (0.3-0.9); MONOCYTES % 7.1 % (0.0-11.0); NEUTROPHILS % 76.1 % (39.0-77.0); PLATELET COUNT 212 10^3/UL (140-440); RED BLOOD COUNT 4.88 10^6/ul (4.70-6.10); RED CELL DISTRIBUTION WIDTH 22.4 % (11.5-14.5); UNCORRECTED WBC 7.9 10^3/ul (4.8-10.8); WHITE BLOOD COUNT 7.9 10^3/ul (4.8-10.8)
[2016-07-20] MEDS: VANCOMYCIN 750 MG in SOD CHLORIDE 0.9% 150 ML IVPB SCH (06:54)
[2016-07-20 06:56] LABS: CONDITION 1; LH ANALYZER COMMENTS 1
[2016-07-20] MEDS: NYSTATIN SUSP 5 ML CUP PO SCH ×2 (08:24→13:13)
[2016-07-20] MEDS: POTASSIUM CHLORIDE 20 MEQ POWDER FOR ORAL SOLN NGT SCH (08:24)
[2016-07-20] MEDS: METOPROLOL 25 MG TAB PO SCH (08:25)
[2016-07-20] MEDS: APIXABAN 5 MG TABLET PO SCH (08:26)
[2016-07-20] MEDS: COLLAGENASE 30 GM TUBE TOP SCH (08:27)
[2016-07-20] MEDS: FLUCONAZOLE 100 MG/NS (PMX) 50 ML IVPB SCH (10:48)
--- NOTE | 2016-07-20 11:06 | CONS ---
Date/Time of Note Date/Time of Note DATE: 07/20/16 TIME: 11:01 Assessment/Plan Assessment/Plan Chief Complaint/Hosp Course IMPRESSION: 1. Congestive heart failure exacerbation, systolic, acute on chronic with last known EF approximately 40% by echo May 2016.-improved volume status 2. Aortic regurgitation, moderate to severe with possible ongoing vegetation by most recent echo May 2016. 3. Mitral regurgitation, moderate to severe. 4. History of recent endocarditis status post 6-week course of antibiotics. 5. Cardiomyopathy with decreased left ventricular ejection fraction last approximately 40% by echo 06/14/2016. 6. Coagulopathy-resolved 7. Renal failure-slowly improving again 9. Increased LFTs-improving 10. Increased Na 12. Mild anemia. 13.Resp failure s/p trach 14. s/p Code blue 15.DNR 16.dysphagia s/p G tube Recc: -Tele -BB as tolerated only following BP/HR closely -Low dose hydralazine afterload reduction as tolerated only -Continue apixaban -Per CT surgery not a candidate for valve replacement at this time due to high risk -F/U blood cultures -Continue abx's -Follow volume status closely, currently back on Bumex with significantly improved volume status -? To [facility] Problems: Consultation Date/Type/Reason Admit Date/Time Jun 26, 2016 at 11:39 Initial Consult Date 06/27/2016 Type of Consultation: Cardiology Reason for Consultation CHF/AR/MR Referring Provider: ASAD DAS MD, [facility] Exam/Review of Systems Vital Signs Vitals Vital Signs Date Time Temp Pulse Resp B/P Pulse Ox O2 Delivery O2 Flow Rate FiO2 07/20/16 09:15 104 17 99 30 07/20/16 07:46 97.9 111/57 07/18/16 00:00 Mechanical Ventilator Intake and Output 07/19/16 07/19/16 07/20/16 15:00 23:00 07:00 Intake Total 50 ml 1350 ml Output Total 5000 ml Balance 50 ml -3650 ml Exam Review of Systems: CONSTITUTIONAL: No fevers, chills. PULMONARY: No sob CARDIOVASCULAR: No chest pain/palpitations GASTROINTESTINAL: No nausea/vomiting. GENITOURINARY: No hematuria/dysuria. MUSCULOSKELETAL: No myagias/arthalgias. PSYCHIATRIC: The patient denies depression. NEUROLOGIC: encephalopathic Constitutional: alert Psych: confusion Head: normocephalic ENMT: mucosa pink and moist, other (trached) Neck: jvd (9 cm water) Respiratory: diminished breath sounds (at bases/B), other (upper airway rhocherous transmission) Cardiovascular: regular rate and rhythm Gastrointestinal: non-tender, soft Musculoskeletal: muscle tone (normal) Extremities: edema (none) Neurological: confused Results Result Diagram: 07/20/1625 07/20/1625 Results 24 hrs Laboratory Tests Test 07/20/16 05:25 Alanine Aminotransferase (ALT/SGPT) 130 H Albumin 2.2 L Albumin/Globulin Ratio 0.73 Alkaline Phosphatase 86 Anion Gap 14 Aspartate Amino Transf (AST/SGOT) 60 #H Basophils # 0.0 Basophils % 0.1 Blood Morphology Comment Blood Urea Nitrogen 40 H Calcium Level 7.6 L Carbon Dioxide Level 27 Chloride Level 108 Creatinine 0.78 Direct Bilirubin 0.00 Eosinophils # 0.3 Eosinophils % 3.2 Globulin 3.00 Glucose Level 114 Hematocrit 37.1 L Hemoglobin 11.4 L Indirect Bilirubin 0.2 Lymphocytes # 1.1 Lymphocytes % 13.5 L Magnesium Level 1.7 Mean Corpuscular Hemoglobin 23.3 L Mean Corpuscular Hemoglobin Concent 30.6 L Mean Corpuscular Volume 75.9 L Mean Platelet Volume 10.6 H Monocytes # 0.6 Monocytes % 7.1 Neutrophils # 6.0 Neutrophils % 76.1 Nucleated Red Blood Cells # 0.0 Nucleated Red Blood Cells % 0.0 Platelet Count 212 Potassium Level 3.2 L Red Blood Count 4.88 Red Cell Distribution Width 22.4 H Sodium Level 146 H Total Bilirubin 0.2 Total Protein 5.2 L Vancomycin Level Trough 14.9 White Blood Count 7.9 Medications Medications Current Medications Ondansetron HCl (Zofran Inj) 4 mg Q6H PRN IV NAUSEA AND/OR VOMITING; Start at 12:00 Nitroglycerin (Nitroglycerin (Sl Tab) 0.4 Mg) 1 tab Q5M PRN SL CHEST PAIN; Start 06/26/16 at 12:00 Morphine Sulfate (morphine) 2 mg Q4H PRN IV PAIN LEVEL 7-10 Last administered on 07/15/16t 03:44; Admin Dose 2 MG; Start 06/26/16 at 12:00 Lorazepam (Ativan) 1 mg Q2H PRN IV ANXIETY Last administered on 07/19/16 23:27 ; Admin Dose 1 MG; Start 06/26/16 at 12:00 Nystatin 5 ml 5 ml TID PO Last administered on 07/20/16 08:24; Admin Dose 5 ML ; Start 06/30/16 at 21:00 Ceftriaxone Sodium (Rocephin) 50 ml @ 100 mls/hr Q24H IVPB Last administered on 07/19/16 14:38; Admin Dose 100 MLS/HR; Start 07/12/16 at 14:30 Apixaban (Eliquis) 10 mg BID PO Last administered on 07/20/16 08:26; Admin Dose 10 MG; Start 07/14/16 at 09:30; Stop 07/20/16 at 21:01 Apixaban (Eliquis) 5 mg BID PO ; Start 07/21/16 at 09:00 Lansoprazole 30 mg 30 mg BID@06,18 GTB Last administered on 07/20/16 06:24; Admin Dose 30 MG; Start 07/15/16 at 18:00 Fluconazole/ Sodium Chloride (Diflucan 100 Mg/ NS (Pmx)) 50 ml @ 50 mls/hr Q24H IVPB Last administered on 07/20/16 10:48; Admin Dose 50 MLS/HR; Start at 11:00 Potassium Chloride (Potassium Chloride Pwd/Soln) 30 meq DAILY NGT Last administered on 07/20/16 08:24; Admin Dose 30 MEQ; Start 07/16/16 at 12:30 Collagenase (Santyl) 1 applic DAILY TOP Last administered on 07/20/16 08:27; Admin Dose 1 APPLIC; Start 07/16/16 at 16:30 Acetaminophen (Tylenol Liquid) 650 mg Q4H PRN GTB PAIN AND OR ELEVATED TEMP Last administered on 07/18/16 09:16; Admin Dose 650 MG; Start 07/17/16 at 00:00 Metoclopramide HCl 10 mg 10 mg Q6H PRN IV VOMITTING; Start 07/17/16 at 14:30 Ferric Sodium Gluconate Complex 125 mg/Sodium Chloride 110 ml @ 100 mls/hr Q24H IVPB Last administered on 07/19/16 16:10; Admin Dose 100 MLS/HR; Start at 15:30; Stop 07/20/16 at 16:35 Vancomycin HCl 750 mg/Sodium Chloride 150 ml @ 75 mls/hr Q12H IVPB Last administered on 07/20/16 06:54; Admin Dose 75 MLS/HR; Start 07/18/16 at 18:00 Bumetanide/ Dextrose (Bumex/D5W) 25 ml @ 50 mls/hr Q8 IV Last administered on 06:22; Admin Dose 50 MLS/HR; Start 07/19/16 at 14:00 Metoprolol Tartrate (Lopressor) 12.5 mg BID PO Last administered on 07/20/16 08:25; Admin Dose 12.5 MG; Start 07/19/16 at 21:00 IV Flush (NS 10 ml) 10 ml PRN PRN IV IV PROTOCOL; Start 07/19/16 at 19:00 SEVERO STUBBS Jul 20, 2016 11:06
--- NOTE | 2016-07-20 12:00 | PDOCDIS ---
Discharge Instructions CONDITION Patient Condition: Stable HOME CARE INSTRUCTIONS: Special Diet: GT feeding ROBERTO DAVISON Jul 20, 2016 12:00
--- NOTE | 2016-07-20 12:47 | DS ---
DATE OF ADMISSION: 06/26/2016 DATE OF DISCHARGE: 07/20/2016 This is a 36-year-old male originally admitted on 06/26/2016 being discharged to [facility] on 07/20/2016. HOSPITAL COURSE: Patient initially came in with a prior history of bacterial endocarditis who had b een on IV antibiotics before admission and also he had been on Eliquis for PE but he came in with sh ortness of breath, found with hypoxemic respiratory failure, multifactorial cause. The patient was admitted and seen by multiple specialists during this hospital stay, and spent a significant amount of time in the intensive care unit before being transferred to the telemetry floor. He was seen by renal team, cardiology team, pulmonary team, GI team, infectious disease team and palliative care do ctor as well during his hospital stay. He was initially intubated and spent quite a bit of time on mechanical ventilation. Eventually, he was extubated and had a trach placed as well. He was follow ed by pulmonary team for this as well. Regarding his endocarditis he was also treated for that with broad spectrum antibiotics including eventually Rocephin and vancomycin. He was also found with Ca ndida urinary tract infection and Saniya respiratory infection and was placed on antifungal medicat ions as well for that. He was diuresed for his CHF with Bumex and these dosages were adjusted accor dingly. He still had a significant encephalopathy as well, but his renal insufficiency also improve d. He was treated for his prior pulmonary embolism with Eliquis as well and also he was found with a right popliteal thrombosis which was again treated with the same anticoagulant. The patient was al so treated for hypernatremia. He slowly improved. He also had a PEG placement as well for dysphagia and he tolerated PEG tube feeding as well. The patient was also made DNR/DNI after extensive famil y meeting with the family and palliative care team as well. The patient's respiratory status is sta ble on mechanical ventilation, saturating at greater than 92% with FIO2 set at 30%. He is back at b aseline status but again he has continued altered mental status, but his blood cultures were also po sitive for staph as recently as 07/18/2016. He also was thought to have line sepsis and his PICC li ne was removed on 07/19/2016 and his Merino catheter was replaced as well. He will get a temporary t riple lumen catheter which was placed yesterday and that will stay in for about 48 hours and then he will get a new PICC line placed as well after getting antibiotic treatment as well. The patient wi ll be discharged to [facility] facility today in improved condition. He will eventually need to be reev aluated medically and see if he is medically stable for valve replacement surgery. At this time, he is not stable for the cardiothoracic surgery team given his current infections and respiratory stat us and they were also consulted on the case. But in any event, the patient will go to [facility] with t he following medications: 1. Tylenol 650 q.4h. p.r.n. 2. Eliquis 5 mg p.o. t.i.d. 3. Bumex 2 mg IV b.i.d. 4. Rocephin 2 grams IV q.24h. 5. Collagenase. Apply topically daily. 6. Fluconazole 100 mg IV q.24h. 7. Hydralazine 10 mg p.o. q.12h. 8. Prevacid 30 mg b.i.d. 9. Ativan 1 mg IV q.2h. p.r.n. 10. Reglan 10 mg IV q.6h. p.r.n. 11. Lopressor 12.5 mg b.i.d. 12. Morphine 2 mg IV q.4h. p.r.n. 13. Nitroglycerin 0.4 mg sublingual every 5 minutes p.r.n. 14. Nystatin suspension 5 mL p.o. t.i.d. 15. Zofran 4 mg IV q.6h. p.r.n. 16. Potassium chloride 20 mEq b.i.d. 17. Sodium ferrous gluconate. 18. IV iron for 1 more day. 19. Vancomycin IV dosing per pharmacy. He will need to follow up with primary care doctor in the clinic in the next 1 to 2 weeks and again be reevaluated by cardiothoracic surgery team for cardiac valve replacement in the future given his endocarditis and also needs continued pulmonary care given his mechanical ventilation via trach and infectious disease care. FINAL DIAGNOSES: 1. Hypoxemia respiratory failure, multifactorial causes including acute on chronic heart failure. Status post intubation and now extubated. 2. Mild systemic inflammatory response syndrome with intermittent low grade fevers secondary to uri nary tract infection Saniya respiratory infection, healthcare-associated pneumonia and endocarditis , now on broad-spectrum antibiotic treatment. 3. Diastolic dysfunction, acute on chronic congestive heart failure with ejection fraction of 40%, D-shaped left ventricle now on Bumex 4. Chronic encephalopathy. 5. Acute on chronic kidney injury, improving. 6. Transaminitis secondary to sepsis, improved. 7. Pulmonary embolism on Eliquis. 8. Right popliteal thrombosis, improved on Eliquis. 9. Microcytic anemia, stable hemoglobin and hematocrit. 10. Hyponatremia, improved. 11. Endocarditis involving the aortic and mitral valves with aortic regurgitation and mitral regurg itation, cardiomyopathy requiring valve replacement surgery when the patient is more medically stabl e. 12. History of drug use. 13. Nicotine abuse. Time spent discharging patient 55 minutes. Dictated By: ROBERTO KWAN Conf#: [id number] DID#: [id number]
--- NOTE | 2016-07-20 13:56 | PN ---
DATE: 07/20/2016 SUBJECTIVE: Chart reviewed. Events noted. The patient remains on ventilator on 30% FIO2, saturati ng 96%. PHYSICAL EXAMINATION: VITAL SIGNS: Blood pressure 96/55, pulse 101, respirations 26, temperature 98.2. HEENT: Pupils are equal and reactive to light. NECK: Supple. No JVD noted, no cervical lymphadenopathy noted, no carotid bruits heard. LUNGS: Fair breath sounds bilaterally. CARDIOVASCULAR: S1, S2 normal. ABDOMEN: Soft, nontender. No organomegaly or masses noted. EXTREMITIES: No clubbing, cyanosis, or edema. NEUROLOGIC: No changes. LABORATORY: WBC 7.9, hemoglobin 11.4, hematocrit 37.1, platelets 212. Sodium 146, potassium 3.2, c hloride 108, CO2 27, BUN 40, creatinine 0.78, glucose 114. IMPRESSION: 1. Ventilator-dependent respiratory failure. 2. Dysphagia. 3. Resolving renal failure. 4. Congestive heart failure. 5. History of polysubstance abuse. 6. History of bacterial endocarditis. RECOMMENDATIONS: 1. Continue the current treatment. 2. Continue vent support. 3. Complete antibiotics. 4. Nephrology followup. 5. Discharge plans noted. Dictated By: MIRNA LOZANO MD, MA/BRANDO Conf#: [id number] DID#: [id number]
--- NOTE | 2016-07-20 14:01 | PN ---
DATE: 07/20/2016 INFECTIOUS DISEASE PROGRESS NOTE SUBJECTIVE: The patient is more awake today. Looks comfortable, no fevers. He is status post new PICC line placed yesterday in his left upper extremity. INDWELLINGS: Trach, PEG, Merino, PICC line. ANTIMICROBIALS: 1. Vancomycin. 2. Cefepime. 3. Fluconazole. PHYSICAL EXAMINATION: GENERAL: This is a chronically ill-appearing, middle-aged white man who is lying comfortably in bed . HEENT: Head atraumatic, normocephalic. Sclerae anicteric. Buccal mucosa dry. NECK: Supple. Tracheostomy present. CHEST: Rise symmetrical. Breath sounds clear, diminished at bases. HEART: S1, S2. ABDOMEN: Soft. Bowel tones present. EXTREMITIES: With trace dependent edema. ASSESSMENT: 1. Stop bacteremia secondary to infected PICC line, status post new line yesterday, old one was dis continued. 2. Bacteria and endocarditis with persistent aortic and mitral valve vegetations and history of alp cai hemolytic strep bacteremia in March 2016. 3. Cardiomyopathy. 4. Status post urinary tract infection and pneumonia. 5. Chronic respiratory failure. 6. Dysphagia. 7. History of intravenous drug abuse. PLAN: The patient remains stable. Continue present care, antibiotics. Repeat blood cultures. Fol low recommendation of consultants. Dictated By: RAYMOND HER CONDUCTOR/BRAKEMAN for JULIO CESAR DURON/NTS Conf#: [id number] DID#: [id number]
[2016-07-20] MEDS: CEFTRIAXONE 2 GM/50 ML (PMX) 50 ML IVPB SCH (14:17)
[2016-07-20] MEDS ORDERED: BUMETANIDE 1 MG INJ IV SCH (18:00)
[2016-07-20] MEDS ORDERED: POTASSIUM CHLORIDE 20 MEQ POWDER FOR ORAL SOLN NGT SCH (21:00)
[2016-07-21] MEDS ORDERED: APIXABAN 5 MG TABLET PO SCH (09:00)
== END 2016-07-20 15:47 | DRG 4 ==
LOC: E/R 22:09 → TEL 06-26 11:39 → ICU 06-27 00:46 → TEL 07-15 00:55
PROVIDERS: ADMIT Family Medicine; ATTEND Family Medicine
PROC: 0BH17EZ Insertion of Endotracheal Airway into Trachea, Via Natural or Artificial Opening (ICD-10-PCS; principal; 2016-06-27)
PROC: 5A1955Z Respiratory Ventilation, Greater than 96 Consecutive Hours (ICD-10-PCS; 2016-06-27)
PROC: 02H633Z Insertion of Infusion Device into Right Atrium, Percutaneous Approach (ICD-10-PCS; 2016-06-27)
PROC: 0DH63UZ Insertion of Feeding Device into Stomach, Percutaneous Approach (ICD-10-PCS; 2016-07-11)
PROC: 0B110F4 Bypass Trachea to Cutaneous with Tracheostomy Device, Open Approach (ICD-10-PCS; 2016-07-13)
PROC: 02HV33Z Insertion of Infusion Device into Superior Vena Cava, Percutaneous Approach (ICD-10-PCS; 2016-07-19)
PROC: 02PAX3Z Removal of Infusion Device from Heart, External Approach (ICD-10-PCS; 2016-07-19)
DX: A41.9 Sepsis, unspecified organism (principal); R09.2 Respiratory arrest; N17.0 Acute kidney failure with tubular necrosis; B37.1 Pulmonary candidiasis; I33.0 Acute and subacute infective endocarditis; G93.40 Encephalopathy, unspecified; J18.9 Pneumonia, unspecified organism; J69.0 Pneumonitis due to inhalation of food and vomit; I50.23 Acute on chronic systolic (congestive) heart failure; J96.01 Acute respiratory failure with hypoxia; G92 Toxic encephalopathy; F11.20 Opioid dependence, uncomplicated; I42.9 Cardiomyopathy, unspecified; I13.0 Hypertensive heart and chronic kidney disease with heart failure and stage 1 through stage 4 chronic kidney disease, or unspecified chronic kidney disease; E87.1 Hypo-osmolality and hyponatremia; I82.431 Acute embolism and thrombosis of right popliteal vein; B37.0 Candidal stomatitis; B37.49 Other urogenital candidiasis; T85.79XA Infection and inflammatory reaction due to other internal prosthetic devices, implants and grafts, initial encounter; T80.211A Bloodstream infection due to central venous catheter, initial encounter; R65.20 Severe sepsis without septic shock; Z79.02 Long term (current) use of antithrombotics/antiplatelets; D50.9 Iron deficiency anemia, unspecified; Z86.711 Personal history of pulmonary embolism; Z72.0 Tobacco use; I34.0 Nonrheumatic mitral (valve) insufficiency; I35.1 Nonrheumatic aortic (valve) insufficiency; E87.5 Hyperkalemia; N18.9 Chronic kidney disease, unspecified; K74.69 Other cirrhosis of liver; B19.20 Unspecified viral hepatitis C without hepatic coma; Z66 Do not resuscitate; K72.90 Hepatic failure, unspecified without coma; A41.1 Sepsis due to other specified staphylococcus; R13.10 Dysphagia, unspecified; R19.7 Diarrhea, unspecified
CPT/HCPCS: 31500; 36415; 36569; 36589; 36600; 70450; 71010; 76937; 80048; 80053; 80061; 80076; 80202; 81001; 81003; 82140; 82270; 82550; 82553; 82803; 82962; 83540; 83605; 83690; 83735; 83880; 84100; 84132; 84443; 84484; 85025; 85610; 85730; 86703; 86704; 86709; 86803; 87040; 87070; 87075; 87081; 87086; 87340; 87400; 87449; 87522; 89220; 92950; 93005; 93965; 94002; 94003; 94770; 94799; 95819; 96374; 96375; 96376; J1940; C9113; J0171; J0690; J0692; J1450; J1650; J1956; J2060; J2250; J2270; J2370; J2916; J2997; J3010; J3370; J3480; J7030; J7040; J7050; J7070